=== PATIENT | male | born 1965 | race Caucasian/White ===

== ENCOUNTER 2018-02-20 21:23 | Emergency (ER) | payer BC, SELFPAY ==
[2018-02-20 21:24] VITALS: BP 188/113; PULSE 75; RESP 18; TEMP 36.4; O2SAT 97; BMI 37.6
[2018-02-20 21:30] VITALS: BP 183/95; PULSE 82; RESP 19
--- NOTE | 2018-02-20 21:54 | CT_ITS ---
STUDY: CTA CHEST REASON FOR EXAM: Male, 53 years old. Chest pain RADIATION DOSAGE (If Supplied By Facility): CTDIvol = ( 18.27 ) mGy, DLP = ( 762.08 ) mGycm TECHNIQUE: The examination was performed with the intravenous administration of 100 ml of Isovue 370 contrast material. Post-processing of the angiographic images was performed, with multiplanar reformation and 3D reconstruction. Individualized dose optimization techniques were used for this CT. COMPARISON: None. FINDINGS: There is limited enhancement of the main pulmonary artery and right and left pulmonary arteries. There is limited enhancement of the bilateral peripheral pulmonary arteries. There is no demonstrated pulmonary embolism. Normal thoracic aorta and visualized great vessels. There is no demonstrated aortic dissection. There are calcifications of the coronary arteries. Normal mediastinum. Normal hilar regions. Normal visualized trachea and bronchi. The lungs are well expanded. Normal pulmonary parenchyma. Normal pleura. Normal chest wall structures. There are degenerative changes of thoracic spine. There is hepatomegaly with diffuse hepatic enlargement. CT/CTA Chest W/WO Contrast IMPRESSION: CTA chest examination, without a demonstrated pulmonary embolism or arterial dissection. Electronically Signed: Abelardo Browne MD at 23:38 EDT , Service support ,
--- NOTE | 2018-02-20 21:54 | EKG12_ITS ---
Test Reason : CHEST PAIN Blood Pressure : / mmHG Vent. Rate : 074 BPM Atrial Rate : 074 BPM P-R Int : 184 ms QRS Dur : 096 ms QT Int : 386 ms P-R-T Axes : 051 058 060 degrees QTc Int : 428 ms Normal sinus rhythm Normal ECG Confirmed by REGIS OLEARY, MERLE ([id number]), index editor YORDY BOWDEN ([id number]) on 02/22/2018 10:58:16 AM Referred By: BENITA Confirmed By:MERLE STACY MD
[2018-02-20 21:57] VITALS: O2SAT 97
[2018-02-20] MEDS: Aspirin 81 MG TAB.CHEW 324 MG PO (22:08)
[2018-02-20 22:12] LABS: Absolute Lymphocyte Count 3.01 X10^3/ul (0.83-4.51); Absolute Neutrophil Count 3.7 X10^3/uL (2.0-7.7); Basophil# 0.03 X10^3/uL; Basophil% 0.4 % (0-1); Eosinophil# 0.22 X10^3/uL; Eosinophils% 2.8 % (0-5); Hematocrit 42.5 % (40-54); Hemoglobin 14.3 g/dl (13.0-16.5); Lymphocyte # 3.01 X10^3/ul (4.0); Lymphocyte % 38.2 % (19-41); Mean Corp Hgb Conc 33.6 g/gl (32-36); Mean Corpuscular Hgb 32.3 pg (27.0-32.0); Mean Corpuscular Volume 95.9 fL (80-94); Monocyte# 0.88 X10^3/uL; Monocyte% 11.2 % (0-10); Neutrophil # 3.72 X10^3/uL (2.7-7.7); Neutrophil % 47.3 % (47-70); POSITIVE COUNT NO; POSITIVE DIFFERENTIAL NO; POSITIVE MORPHOLOGY NO; Platelet Count 229 K/mm3 (150-450); RBC Distribution Width CV 14.3 % (11.6-14.6); RBC Distribution Width SD 50.6 fl (35.1-43.9); Red Blood Count 4.43 M/mm3 (4.6-6.2); White Blood Count 7.9 K/mm3 (4.4-11.0)
[2018-02-20 22:24] LABS: Anion Gap 5 (5-15); BUN 19 mg/dL (7-18); BUN/Creat Ratio 15.8 RATIO (10-20); Calcium,Total 9.2 mg/dL (8.5-10.1); Chloride 103 mmol/L (98-107); EST Glomerular Filtration Rate 67 mL/min (>60); Est Glom Filt Rate - Afr Amer 81 mL/min (>60); Estimated Creatinine Clearance 66.56 ml/min; Glucose 132 mg/dL (74-106); Potassium 3.5 mmol/L (3.5-5.1); Sodium Level 139 mmol/L (136-145)
[2018-02-20 22:25] VITALS: BP 165/98; PULSE 72; RESP 17; O2SAT 96
[2018-02-20 23:04] VITALS: BP 144/86; PULSE 73; RESP 18
--- NOTE | 2018-02-20 23:52 | ED.VISSUMM ---
- ER Visit Summary Date of Service: 02/20/18 Chief Complaint: Shortness of breath History of Present Illness: The patient is a 53 M who presents with shortness of breath that became worse today. Patient states he was having some pain in his chest and shortness of breath with any exertion today. Patient states he can only walk a few feet before he becomes short of breath and gets chest pain. Patient describes his pain is aching. Patient states the pain is over the substernal area. Patient admits to some lightheadedness and a cough. Patient denies any nausea or vomiting. Patient denies any diaphoresis. Patient denies any palpitations. Past medical history includes hypertension and hypercholesterolemia. Patient is a smoker. Patient states she does have a history of prior DVT. Physical Examination: Vital signs show an elevated blood pressure of 188/113. The remaining vital signs are stable. Patient is resting comfortably on the bed. Patient is in no acute distress. Oral mucosa is pink and moist. Neck is supple. Trachea is midline. There is no JVD noted. Heart was regular rate and rhythm. Lungs are clear and equal bilaterally. There is good respiratory effort noted. Abdomen is soft. Bowel sounds are normal. There is no tenderness. Extremities are intact. There is 1+ edema lower extremities bilaterally. There is no calf tenderness noted. Cranial nerves II through XII are intact. There are no focal motor or sensory deficits noted. The remaining physical exam is within normal limits. Test Results: EKG showed normal sinus rhythm with a rate of 74. There are no acute ST or T-wave changes. There are no changes compared to previous EKG dated 02/13/2011. CBC was within normal limits. Basic metabolic profile showed a slightly elevated glucose of 132. Troponin was normal at 0.017. CTA of the chest was obtained. There is no evidence of pulmonary embolism or aortic dissection. There is no infiltrate noted. Emergency Department Course and Treatment: Patient was given an albuterol aerosol here. Patient was ambulated on room air with a pulse oximeter. Patient remained 92-94% on room air while ambulating. Patient was given a prescription for an albuterol inhaler. Patient was instructed to follow-up with his primary care physician in 7-10 days. Patient understood and was agreeable with the plan. All questions were answered. Disposition: Discharged home Impression: Dyspnea This note was generated with [employer] dictation software. It may contain incorrect words, spelling, and punctuation that were not noted in review of the chart prior to signing ED Disposition - Plan for ED Patient: Disposition: Home or Assisted Living Chief Complaint: Chest Pain Diagnosis: Dyspnea Instructions: ED Chest Pain Atypical Unkn Cause, ED Dyspnea Shortness of Breath Prescriptions: Albuterol Inhaler [Ventolin Hfa] 2 puff INHALATION Q4H PRN PRN #1 inhaler PRN Reason: Wheezing Referrals: Vadim Encinas MD [Primary Care Provider] -
[2018-02-21] MEDS: Albuterol 2.5 MG/3 ML VIAL.NEB. INHALATION (00:13)
[2018-02-21 00:15] VITALS: PULSE 67; RESP 16
[2018-02-21 00:26] VITALS: O2SAT 94
[2018-02-21 00:38] VITALS: BP 167/105; PULSE 72; RESP 17; O2SAT 97
--- NOTE | 2018-02-21 00:40 | ED.RN ---
PT GIVEN WRITTEN AND VERBAL DISCHARGE INSTRUCTIONS AND HOME GOING PRESCRIPTIONS. PT VERBALIZES UNDERSTANDING AND DENIES ANY FURTHER QUESTIONS. PT IV D/C, ANGIO INTACT AND COVERED WITH 2X2 GAUZE DRESSING. MINIMAL BLEEDING NOTED. PT AMBULATES OUT OF DEPT WITH .
== END 2018-02-21 00:42 | disposition home or self-care (01) ==
PROVIDERS: Emergency Provider Emergency Medicine; Family Provider Family Medicine; PCP Family Medicine
DX: R06.00 Dyspnea, unspecified (principal); R07.9 Chest pain, unspecified; R42 Dizziness and giddiness; R05 Cough; R60.0 Localized edema; I10 Essential (primary) hypertension; E78.00 Pure hypercholesterolemia, unspecified; Z86.718 Personal history of other venous thrombosis and embolism; F17.200 Nicotine dependence, unspecified, uncomplicated; Z79.899 Other long term (current) drug therapy
CPT/HCPCS: 71275; 80048; 84484; 85025; 93005; 94640; 99285; Q9967; A4216

== ENCOUNTER 2018-03-06 08:00 | Day surgery (SDC) | payer BC, SELFPAY ==
--- NOTE | 2018-03-06 08:00 | DT_ITS ---
This patient was seen during an EMR downtime March 04, 2018 - March 11, 2018. This patient may have a combination of paper and electronic documentation or all paper documentation. All documentation is viewable within the e-chart portion of [facility] for each patient visit.
--- NOTE | 2018-03-07 12:17 | EKG12_ITS ---
Test Reason : AM Blood Pressure : / mmHG Vent. Rate : 089 BPM Atrial Rate : 089 BPM P-R Int : 200 ms QRS Dur : 098 ms QT Int : 348 ms P-R-T Axes : 059 055 -23 degrees QTc Int : 423 ms Normal sinus rhythm Normal ECG When compared with ECG of 06-MAR-2018 11:25, MANUAL COMPARISON REQUIRED, DATA IS UNCONFIRMED Confirmed by PALOMA OLEARY, KAMILLE ([id number]), editor in chief newspaper OYRDY BOWDEN ([id number]) on 03/14/2018 4:43:58 PM Referred By: Misha Juarez Confirmed By:KAMILLE DOW MD
[2018-03-08 13:47] LABS: M R Staph aureus DNA By PCR Negative (Negative); Probe Check PASS; Specimen Processing Control PASS
--- NOTE | 2018-03-08 16:57 | CL.I_ITS ---
Patient Name: TWIN CHAMBERS Study Date: 03/06/2018 Performing: Misha Juarez MD Ht: 67 inches 170.18 cm : 1965 Wt: 243.3 lbs 110.22 kg Age: 53 Gender: male BSA: 2.2 PROCEDURE(S) PERFORMED MF02-CST/COR/LV TL70-DTZ W OR WO PTCA, SINGLE CORONARY ARTERY VI04-GLW W OR WO PTCA, SINGLE CORONARY ARTERY CLINICAL PROFILE AND CO-MORBIDITIES Indications: ACS > 24 hrs, New Onset Angina <= 2 months, Worsening Angina, Suspected CAD, LV Dysf unction Heart Failure: None Stress/Imaging Stress Test w/SPECT MPI: Yes Result: Positive Intermediate Risk Stress Test with S PECT MPI: Positive Intermediate Risk Angina Classification Anginal Classification w/in 2 Weeks: CCS III CAD Presentations: Unstable angina. Comorbidities/Risk Factors: Current/Recent Smoker (< 1year) Hypertension Dyslipidemia CONCLUSIONS Double vessel CAD of the LCX and possible recent total occlusion of proximal RCA with robust L to R c ollaterals. Successful PTCA/SHELBY of the of mid LCX with a 3.0 x 16 Promus Synergy, post dilated with a 3.5 and 4.0 NC balooon; 75%-->0%, no dissection. Pt had similar anginal symptoms as at home with balloon inflat ion. Successful PTCA/SHELBY of the Proximal RCA recent occlusion with a 3.5 x 38 Promus Synergy, post dilated through its entirity with a 3.5 NC balloon, and proximally with a 4.0 x 8 NC balloon; 100%-->0%, no dissection. True lumen confirmed with a OTW balloon. PDA not intervened on due to previous inferior infarct and proximal LV wall motion abnormalities noted on nuclear imaging. 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 Juarez ASA Indefinitley Possible elective PCI of PDA if pt has recurrent symptoms or evidence of inferior ischemia. DESCRIPTION OF PROCEDURE The patient arrived to the procedure lab. The risks and benefits of the procedure as well as a full d escription of our services here and lack of surgical backup were fully explained to the patient and/o r their significant other prior to the catheterization. The Timeout was completed, verifying the betina ect patient and procedure. The patient's procedural site was prepped and draped in the usual fashion. Local anesthetic was given subcutaneously to right groin region with Lidocaine 2%. Using a modified Seldinger technique, arterial access was obtained via the right femoral artery, a 4Fr sheath was inse rted. Left Coronary Artery selective angiography was performed in multiple views using a 4 Fr. JL5 c atheter. Right Coronary Artery selective angiography was then performed in multiple views using a 4 F r. 3DRC catheter. Left Ventriculography was performed in NEAL projection using a 4 Fr. Pigtail cathete r. LV to AO pullback pressures were then recordedThe images were reviewed and options discussed. A de cision was then made to proceed with an Intervention, IVUS or other adjunct procedure. Arterial sheath was exchanged for a 6 Fr Sheath. ebu 3.75 Guide catheter was inserted and engaged int o the LCA. bmw Guide wire was advanced to the Circumflex. emerge 2.00 x 12 Balloon catheter was advan mary across lesion in the circumflex, mid. Angiogram performed pre balloon dilatation. PTCA balloon in flated at 12 atms for 14 secs. Angiogram performed post balloon dilatation. synergy 3.00 x 16 Drug El uting stent was advanced across the lesion in the circumflex, mid. Angiogram performed post stent dep loyment. Post stent, balloon catheter was inserted nc emerge 3.5 x 8 nc emerge 4.[address] was inserted post stent. Angiogram performed post balloon dilatation. hs 2 Guide catheter was ins erted and engaged into the RCA. bmw Guide wire was advanced to the RCA. Guide wire was exchanged for a runthrough otw emerge 1.5 x 15 Balloon catheter was advanced across lesion in the right coronary, m id. PTCA balloon inflated at 8 atms for 12 secs. PTCA balloon inflated at 10 atms for 12 secs. PTCA b alloon inflated at 12 atms for 11 secs. PTCA balloon inflated at 12 atms for 9 secs. Angiogram perfor med post balloon dilatation. emerge 2.00 x 12 Balloon catheter was advanced across lesion in the righ t coronary, mid. PTCA balloon inflated at 10 atms for 6 secs. PTCA balloon inflated at 12 atms for 7 secs. Angiogram performed post balloon dilatation. emerge 2.5 x 12 Balloon catheter was advanced acro ss lesion in the right coronary, mid. PTCA balloon inflated at 6 atms for 6 secs. PTCA balloon inflat ed at 6 atms for 6 secs. PTCA balloon inflated at 8 atms for 10 secs. PTCA balloon inflated at 8 atms for 5 secs. PTCA balloon inflated at 8 atms for 5 secs. PTCA balloon inflated at 8 atms for 5 secs. PTCA balloon inflated at 8 atms for 8 secs. Angiogram performed post balloon dilatation. synergy 3.00 x 28 Drug Eluting stent was advanced across the lesion in the right coronary, mid. Angiogram perform ed pre stent deployment. Angiogram performed post stent deployment. synergy 3.5 x 38 Balloon catheter was advanced across lesion in the right coronary, mid. Angiogram performed pre stent deployment. Ang iogram performed post stent deployment. nc emerge 3.5 x 8 Balloon catheter was inserted post stent. A ngiogram performed post balloon dilatation. nc emerge 4.00x 8 Balloon catheter was inserted post sten t. Angiogram performed post stent deployment. Arterial sheath was exchanged for a 6 Fr Sheath 11 cm The arterial sheath was sutured in place and capped CORONARY ANGIOGRAPHY DOMINANCE: Right Dominant LEFT HEART ASSESSMENT Left Ventricular Ejection Fraction: by LV Gram 45-50 % Depressed Left Ventricular systolic function Elevated Left Ventricular End Diastolic Pressure Inferior Basal Hypokinesis - Severe LEFT MAIN: Angiographically normal LEFT ANTERIOR DECENDING ARTERY: Mild luminal irregularities less than 30% CIRCUMFLEX ARTERY: MID CIRC: 75 % Stenosis RIGHT CORONARY ARTERY: PROX RCA: is occluded RT PDA: Mid - 70 diffuse % Stenosis COLLATERAL FLOW: Collateral flow from Left to Right INTERVENTION INFORMATION LESION SITE: Circumflex (Mid) Lesion Complexity: Non-High/Non-C, lesion at bifurcation: No, thrombus present: No, lesion length: 16 mm, culprit lesion: Yes Pre Stenosis: 75 % Pre intervention RIAN flow: 3 PROCEDURE: Drug Eluting Stent with pre and post dilatation Post Stenosis: 0 % Post intervention RIAN flow: 3 Lesion Devices: Marr .014 BMW [place] Straight 190cm Lucien Sci EMERGE MR 2.00x12 BALLOON Lucien Sci Synergy MR SHELBY 3.00x16 Lucien Sci NC EMERGE MR 3.50x08 BALLOON Lucien Sci NC EMERGE MR 4.00x08 BALLOON LESION SITE: RCA (Mid) Lesion Complexity: High/C, thrombus present: No, lesion length: 38 mm, culprit lesion: No Pre Stenosis: 100 % Pre intervention RIAN flow: 0 PROCEDURE: Drug Eluting Stent with pre and post dilatation Post Stenosis: 0 % Post intervention RIAN flow: 3 Lesion Devices: Terumo .014 Runthrough Extra Floppy 180cm straight Lucien Sci EMERGE OTW 1.50x15 BALLOON Lucien Sci EMERGE MR 2.50x12 BALLOON Lucien Sci Synergy MR SHELBY 3.00x28 Lucien Sci Synergy MR SHELBY 3.50x38 LESION SITE: RCA (Distal) Lesion Complexity: High/C, lesion at bifurcation: No, thrombus present: No, lesion length: 32 mm, cul prit lesion: No Pre Stenosis: 100 % Pre intervention RIAN flow: 0 PROCEDURE: Drug Eluting Stent with pre and post dilatation 0 % Post intervention RIAN flow: 3 COMPLICATIONS No Complications PROCEDURE MEDICATIONS Versed 1 mg IV Oxygen: 2 L/min via nasal cannula Heparin 6000 unit(s) IV 03/06/2018 09:36:44 Heparin 4000 unit(s) IV 03/06/2018 10:15:23 Nitro 200 mcg IC 03/06/2018 09:38:31 Nitro 200 mcg IC 03/06/2018 09:38:31 Nitro 200 mcg IC 03/06/2018 09:49:49 Nitro 200 mcg IC 03/06/2018 10:16:06 SUMMARY OF HEMODYNAMIC DATA Time AIR REST ECG 09:12:31 AO 122/81 (98) SA 09:22:06 LV 131/-10, 17 09:29:08 LV 131/-15, 11 09:29:15 LVp 136/-14, 16 09:29:32 AOp 126/75 (96) 09:29:37 Signed By Misha Juarez MD On 03/08/2018 14:48:20 Misha Juarez MD
[2018-03-09 08:00] LABS: Red Blood Count 3.91 M/mm3 (4.6-6.2); White Blood Count 8.5 K/mm3 (4.4-11.0)
[2018-03-09 08:01] LABS: Hemoglobin 12.6 g/dl (13.0-16.5); Mean Corp Hgb Conc 33.2 g/gl (32-36); Mean Corpuscular Hgb 32.2 pg (27.0-32.0); Mean Corpuscular Volume 97.2 fL (80-94); Mean Platelet Vol. 8.6 fl (6.2-12.0); Platelet Count 218 K/mm3 (150-450); RBC Distribution Width CV 14.8 % (11.6-14.6); RBC Distribution Width SD 52.4 fl (35.1-43.9); Scan Indicated on CBC? Y/N NO
[2018-03-09 08:04] LABS: Hematocrit 35.8 % (40-54); Hemoglobin 11.9 g/dl (13.0-16.5); Mean Corp Hgb Conc 33.2 g/gl (32-36); Mean Corpuscular Hgb 32.2 pg (27.0-32.0); Mean Platelet Vol. 8.1 fl (6.2-12.0); POSITIVE COUNT NO; POSITIVE DIFFERENTIAL NO; POSITIVE MORPHOLOGY NO; Platelet Count 181 K/mm3 (150-450); RBC Distribution Width CV 14.6 % (11.6-14.6); RBC Distribution Width SD 51.6 fl (35.1-43.9); Red Blood Count 3.69 M/mm3 (4.6-6.2); White Blood Count 8.7 K/mm3 (4.4-11.0)
[2018-03-09 08:05] LABS: Absolute Lymphocyte Count 2.29 X10^3/ul (0.83-4.51); Absolute Neutrophil Count 5.4 X10^3/uL (2.0-7.7); Basophil# 0.02 X10^3/uL; Basophil% 0.2 % (0-1); Eosinophil# 0.11 X10^3/uL; Eosinophils% 1.3 % (0-5); Lymphocyte # 2.29 X10^3/ul (4.0); Lymphocyte % 26.2 % (19-41); Monocyte# 0.92 X10^3/uL; Monocyte% 10.5 % (0-10); Neutrophil # 5.38 X10^3/uL (2.7-7.7); Neutrophil % 61.6 % (47-70)
[2018-03-09 14:43] LABS: Hemoglobin 12.7 g/dl (13.0-16.5); Red Blood Count 3.93 M/mm3 (4.6-6.2)
[2018-03-09 14:44] LABS: Hematocrit 38.4 % (40-54); Mean Corp Hgb Conc 33.1 g/gl (32-36); Mean Corpuscular Hgb 32.3 pg (27.0-32.0); Mean Corpuscular Volume 97.7 fL (80-94); Mean Platelet Vol. 8.6 fl (6.2-12.0); Platelet Count 233 K/mm3 (150-450); RBC Distribution Width CV 14.6 % (11.6-14.6); RBC Distribution Width SD 52.6 fl (35.1-43.9); Scan Indicated on CBC? Y/N NO
[2018-03-11 03:57] LABS: Anion Gap 7 (5-15); BUN 15 mg/dL (7-18); BUN/Creat Ratio 17.6 RATIO (10-20); Calcium,Total 8.4 mg/dL (8.5-10.1); Chloride 106 mmol/L (98-107); Creatinine, Serum 0.85 mg/dL (0.70-1.30); EST Glomerular Filtration Rate 100 mL/min (>60); Est Glom Filt Rate - Afr Amer 121 mL/min (>60); Glucose 106 mg/dL (74-106); Potassium 3.7 mmol/L (3.5-5.1); Sodium Level 140 mmol/L (136-145)
[2018-03-11 12:15] LABS: ACT Activated Clotting Time 153 sec (74-137)
[2018-03-11 12:15] LABS: ACT Activated Clotting Time 191 sec (74-137)
[2018-03-11 12:15] LABS: ACT Activated Clotting Time 191 sec (74-137)
== END 2018-03-07 09:35 | disposition home or self-care (01) ==
LOC: SDC 03-07 11:28 → ICU 03-07 11:31
PROVIDERS: Family Provider Family Medicine; PCP Family Medicine; Visit Provider Internal Medicine Cardiovascular Disease
DX: R07.9 Chest pain, unspecified (principal); I25.10 Atherosclerotic heart disease of native coronary artery without angina pectoris; I10 Essential (primary) hypertension; R06.02 Shortness of breath; Z82.49 Family history of ischemic heart disease and other diseases of the circulatory system; R94.39 Abnormal result of other cardiovascular function study; E78.5 Hyperlipidemia, unspecified; F17.200 Nicotine dependence, unspecified, uncomplicated
CPT/HCPCS: 80048; 85025; 85027; 85347; 87641; 92928; 93005; 93458; 99152; 99153; J7030; J7040; C1725; C1769; C1874; C1887; C1894; C9600; Q9967

== ENCOUNTER → 2018-04-05 09:10 | Outpatient (CLI) | payer BC, SELFPAY ==
--- NOTE | 2018-04-05 09:12 | STEWCON_ITS ---
Reason For Study: Dyspnea; CAD; Chest Pain Stress Results Protocol: Dobutamine Stress Echo Maximum Predicted HR: 167 bpm Target HR: 142 bpm% Maximum Pre dicted HR: 69 % Heart Stage Duration Rate BPComm ent (mm:ss) (bpm) Baseline 66 155 /92No Chest Pain; Definity 0.6 ML Given Throughout Test DSE 10 MCG 3:57 57 166/90No Chest Pain DSE 20 MCG 3:00 62 166/122No Chest Pain DSE 30 MCG 3:00 63 200/112No Chest Pain DSE 40 No Chest Pain; Atropine 0.25 MG IV at 956; Atropine 0.25 MG IV at MCG 9:05 11 5 [id number]/[id number]; Atropine 0.25 MG IV at 1000; Atropine 0.25 MG IV at 1002 Recovery 90 152 /78No Chest Pain Stress Duration: 19:02 mm:ss Maximum Stress HR: 115 bpmME TS: 1 Baseline Echocardiogram Findings The estimated ejection fraction is 65 %. Stress Echo Wall motion Data Resting WMIntermediate WMStress WM Resting Wall Motion Wall Motion Stress No regional wall motion Mid-Inferior: Mildly hypokinetic. abnormalities noted. Infero-Basal: Mildly hypokinetic. EKG Data The baseline ECG displays normal sinus rhythm. The patient was titrated from 10 mcg to a maximum of 40 mcg of dobutamine during the stress. The maximum heart rate attained was 115 beats per minute. This was 68% of maximum predicted heart rate. During dobutamine infusion, there were no ST or T wave changes noted to suggest ischemia. Interpretation Summary The estimated ejection fraction is 65 %. Mid-Inferior: Mildly hypokinetic Infero-Basal: Mildly hypokinetic Abnormal, adequate, dobutamine echocardiogram. Positive for ischemia by echocardiographic criteria. The patient developed inferior and posterior hypokinesis at peak infusion. Rare PACs and PVCs noted. Hypertensive blood pressure response to dobutamine. Despite inability to reach target heart rate, the patient had an adequate rate pressure product. No anginal symptoms noted. Final LVEF of 55%. No complications. Patient will be referred for elective PCI of PDA. Ordering Physician: Cachorro Domingo Referring Physician: Misha Juarez Performed By: Marci Domingo, ANAY, RVT
== END ==
PROVIDERS: Family Provider Physician Assistant; PCP Physician Assistant; Visit Provider Nurse Practitioner Family
DX: I25.10 Atherosclerotic heart disease of native coronary artery without angina pectoris (principal); R06.09 Other forms of dyspnea; R07.9 Chest pain, unspecified; Z95.5 Presence of coronary angioplasty implant and graft
CPT/HCPCS: 93017; 93350; J7030; Q9957; A4216; C8928

== ENCOUNTER 2018-04-09 12:49 | Observation (INO) | payer BC, SELFPAY ==
[2018-04-09] VITALS (15 sets, daily range): BP systolic 120–168; BP diastolic 76–104; PULSE 66–80; RESP 13–19; TEMP 36.7–36.9; O2SAT 93–97; BMI 39.5; BMI 38.2
--- NOTE | 2018-04-09 13:44 | EKG12_ITS ---
Test Reason : CP Blood Pressure : / mmHG Vent. Rate : 081 BPM Atrial Rate : 081 BPM P-R Int : 192 ms QRS Dur : 088 ms QT Int : 374 ms P-R-T Axes : 053 048 -03 degrees QTc Int : 434 ms Normal sinus rhythm Normal ECG Confirmed by PALOMA OLEARY, KAMILLE ([id number]), science editor YORDY BOWDEN ([id number]) on 04/11/2018 1:45:40 PM Referred By: Cachorro Domingo Confirmed By:KAMILLE DOW MD
--- NOTE | 2018-04-09 13:49 | ED.DCSUM_ITS ---
- ER Visit Summary Date of Service: 04/09/18 Chief Complaint: Chest pain and shortness of breath History of Present Illness: The patient is a 53 M with history of coronary artery disease status post stent placement on March 06 who presents for chest pain since yesterday. Patient has been having intermittent waxing and waning chest pain in the left lower chest and lower substernal region since yesterday. He states this is his typical chest pain that he had along with his prior heart attack. It does not radiate. Pain is currently a 4 out of 10. It is not exacerbated by anything and occurs at rest. Patient is also complaining of shortness of breath with onset prior to arrival. Patient was on his way here to get blood work performed for upcoming cardiac interventions when he began feeling short of breath. He has had a productive cough recently and felt like he was choking on his own saliva, unable to swallow it. He has history of wheezing but no diagnosed asthma, COPD, or CHF. Patient currently on Plavix. Patient is a smoker. Patient states he recently had an echo performed and was told he needs another stent. Procedure is scheduled for April 17. Physical Examination: Vital signs: afebrile, hemodynamically stable, no hypoxia on room air General: well nourished, well developed, in no distress Skin: warm, dry, no rash, no pallor HEENT: normocephalic and atraumatic; PERRL, EOMI, moist mucous membranes Cardiovascular: regular rate and rhythm without murmurs, no peripheral edema, 2 + pulses all distal extremities Respiratory: No increased work of breathing, lungs are clear to auscultation bilaterally, no rales, rhonchi or wheezing, speaking in full sentences, brief episode of feeling short of breath and unable to swallow his own saliva, no apparent respiratory distress during this episode Abdominal: Abdomen is soft, nontender with normoactive bowel sounds, no guarding or rebound, no masses MSK: Moves all extremities, no deformities, normal strength Neuro: Awake and alert, oriented ?4. No facial droop, sensation and motor function intact and symmetric Test Results: Abnormal Lab Results 04/09/18 04/09/18 04/09/18 13:02 13:02 13:02 WBC 6.7 RBC 4.31 L Hgb 14.0 Hct 42.2 MCV 97.9 H MCH 32.5 H MCHC 33.2 RDW 14.9 H RDW Differential 51.8 H Plt Count 228 MPV 8.9 Immature Gran % (Auto) 0.300 Neut % (Auto) 49.9 Lymph % (Auto) 36.5 [place] % (Auto) 10.3 H Eos % (Auto) 2.4 Baso % (Auto) 0.6 Absolute Neuts (auto) 3.3 Absolute Lymphs (auto) 2.44 Total Counted Not Reportable PT 12.9 INR 1.0 APTT 27.5 Sodium 140 Potassium 3.6 Chloride 103 Carbon Dioxide 30.0 Anion Gap 7 BUN 17 Creatinine 1.03 Estim Creat Clear Calc 77.54 Est GFR (MDRD) Af Amer 97 Est GFR (MDRD) Non-Af 80 BUN/Creatinine Ratio 16.5 Glucose 86 Calcium 9.3 Troponin I < 0.015 Clinical Impression(s) from Imaging Studies Chest X-Ray 04/09/18 14:25 IMPRESSION: Question minimal bibasilar infiltrates. Electronically Signed: Steven Stanton DO at 14:42 EDT Tel [phone], Service support , Emergency Department Course and Treatment: Patient presents for chest pain and then shortness of breath that developed on his way to the emergency department. Chart review shows patient had an echo 4 days ago that shows ischemic changes , and patient states he is scheduled for a cath later this month. Patient was given aspirin and nitro. Because he developed the shortness of breath as well and states he has a history of wheezing due to smoking, he was given a DuoNeb. His respiratory symptoms resolved after the treatment. His chest pain resolved after the nitro. EKG showed sinus rhythm with T-wave inversions in 3 and aVF which were present on his March EKG. Initial troponin negative. Labs otherwise unremarkable. Given that patient has the known coronary artery disease and is having symptoms of chest pain today that were similar to his symptoms when he had 3 stents placed last month, this is concerning for unstable angina. Patient was discussed with Dr. Figueroa and then discussed with Dr. Peralta for admission for further cardiac workup. Patient initially did not want to stay since he states he lives nearby and feels better now. We discussed the risks of him leaving and he opted to be admitted. Treatment Plan: [] Disposition: [] Impression: Unstable angina, history of ACS This note was generated with [employer] dictation software. It may contain incorrect words, spelling, and punctuation that were not noted in review of the chart prior to signing ED Disposition - Plan for ED Patient: Chief Complaint: Chest Pain
[2018-04-09] MEDS: Aspirin 81 MG TAB.CHEW 324 MG PO (13:56)
[2018-04-09] MEDS: Ipratropium/Albuterol Sulfate 3 ML AMPUL.NEB INHALATION (13:57)
[2018-04-09 13:59] LABS: Absolute Lymphocyte Count 2.44 X10^3/ul (0.83-4.51); Absolute Neutrophil Count 3.3 X10^3/uL (2.0-7.7); Basophil# 0.04 X10^3/uL; Basophil% 0.6 % (0-1); Eosinophil# 0.16 X10^3/uL; Eosinophils% 2.4 % (0-5); Hematocrit 42.2 % (40-54); Lymphocyte # 2.44 X10^3/ul (4.0); Lymphocyte % 36.5 % (19-41); Mean Corp Hgb Conc 33.2 g/gl (32-36); Mean Corpuscular Hgb 32.5 pg (27.0-32.0); Mean Corpuscular Volume 97.9 fL (80-94); Mean Platelet Vol. 8.9 fl (6.2-12.0); Monocyte# 0.69 X10^3/uL; Monocyte% 10.3 % (0-10); Neutrophil # 3.34 X10^3/uL (2.7-7.7); Neutrophil % 49.9 % (47-70); Platelet Count 228 K/mm3 (150-450); RBC Distribution Width CV 14.9 % (11.6-14.6); RBC Distribution Width SD 51.8 fl (35.1-43.9); Red Blood Count 4.31 M/mm3 (4.6-6.2); White Blood Count 6.7 K/mm3 (4.4-11.0)
[2018-04-09 14:00] LABS: POSITIVE COUNT NO; POSITIVE DIFFERENTIAL NO; POSITIVE MORPHOLOGY NO
[2018-04-09] MEDS: 0.9% Normal Saline 1,000 ML 250 ML IV (14:00)
[2018-04-09 14:07] LABS: Prothrombin Time (Protime)PT. 12.9 SECONDS (11.7-14.9)
[2018-04-09 14:08] LABS: Partial Thromboplast Time 27.5 Seconds (24.1-36.2)
[2018-04-09 14:25] LABS: Anion Gap 7 (5-15); BUN 17 mg/dL (7-18); BUN/Creat Ratio 16.5 RATIO (10-20); Calcium,Total 9.3 mg/dL (8.5-10.1); Chloride 103 mmol/L (98-107); Creatinine, Serum 1.03 mg/dL (0.70-1.30); EST Glomerular Filtration Rate 80 mL/min (>60); Est Glom Filt Rate - Afr Amer 97 mL/min (>60); Estimated Creatinine Clearance 77.54 ml/min; Glucose 86 mg/dL (74-106); Potassium 3.6 mmol/L (3.5-5.1); Sodium Level 140 mmol/L (136-145)
--- NOTE | 2018-04-09 14:25 | RAD_ITS ---
STUDY: X-RAY CHEST REASON FOR EXAM: Male, 53 years old. Chest pain. TECHNIQUE: PA and lateral views of the chest. COMPARISON: CT of the chest, February 20, 2018. FINDINGS: Telemetry wires overlie the chest. The lungs are mildly hyperexpanded. There is vague densities at the lung bases which may be infiltrates or atelectasis. There is no demonstrated pleural abnormality. Normal size heart. Normal mediastinum and susana. Normal visualized pulmonary arteries. Normal visualized aortic arch and descending thoracic aorta. Normal visualized thoracic spine. Normal visualized ribs, clavicles, and shoulders. There is no demonstrated abnormality of the visualized soft tissue structures of the upper abdomen. RAD/Chest PA and Lateral IMPRESSION: Question minimal bibasilar infiltrates. Electronically Signed: Steven Stanton DO at 14:42 EDT Tel [phone], Service support ,
--- NOTE | 2018-04-09 15:56 | NURSING ---
DR SINGH FOR DR MUNIZ
--- NOTE | 2018-04-09 16:03 | PCM.HP.STD ---
<Aisha Vázquez - Last Filed: 04/09/18 16:55> Problem List (1) Chest pain Status: Acute (2) Abnormal stress test Status: Acute (3) History of coronary artery stent placement Status: Chronic Comment: PTCA/SHELBY of the of mid LCX with a 3.0 x 16 Promus Synergy and PTCA/SHELBY of the Proximal RCA recent occlusion with a 3.5 x 38 Promus Synergy 03/06/18 (4) Atherosclerosis of coronary artery of [place] heart without angina pectoris Status: Chronic Comment: PTCA/SHELBY of the of mid LCX with a 3.0 x 16 Promus Synergy and PTCA/SHELBY of the Proximal RCA recent occlusion with a 3.5 x 38 Promus Synergy 03/06/18 (5) Nicotine dependence Status: Chronic (6) Hyperlipidemia Status: Chronic (7) Hypertension Status: Chronic History of Present Illness Date of Admission: 04/09/18 Chief Complaint: Chest pain, shortness of breath. The patient is a 53 year old M who presents the emergency room with chest pain which began yesterday. Patient describes chest pain on the left side of his chest, not associated with exertion. Patient describes radiation to his neck bilaterally and associated shortness of breath. Denies dizziness, lightheadedness. Patient states pain feels similar to chest pain prior to recent stent placement. Patient underwent PTCA to mid LCx, SHELBY of the mid and proximal RCA March 06, 2018. He follows with Dr. Juarez as outpatient. Had recent abnormal stress echocardiogram 04/05/2018 and was scheduled for outpatient cardiac catheterization 04/17/2018. His other past medical history includes hypertension, hyperlipidemia, nicotine dependence, hiatal hernia, history of TIA, obesity, anxiety, obstructive sleep apnea. Patient is noncompliant with CPAP. He denies history of COPD although he does have an extensive smoking history and uses an inhaler as needed for wheezing. Current pack per day smoker and states he has no interest in quitting. Past Medical History Past Medical History (Chronic Problems): Chronic Problems (Last Updated 04/05/18 @ 13:01 by Nasima Orr) History of coronary artery stent placement (Chronic 03/06/18) PTCA/SHELBY of the of mid LCX with a 3.0 x 16 Promus Synergy and PTCA/SHELBY of the Proximal RCA recent occlusion with a 3.5 x 38 Promus Synergy 03/06/18 Atherosclerosis of coronary artery of [place] heart without angina pectoris (Chronic) PTCA/SHELBY of the of mid LCX with a 3.0 x 16 Promus Synergy and PTCA/SHELBY of the Proximal RCA recent occlusion with a 3.5 x 38 Promus Synergy 03/06/18 Nicotine dependence (Chronic) Hyperlipidemia (Chronic) Hypertension (Chronic) Medical History: Medical History (Last Updated 04/05/18 @ 13:01 by Nasima Orr) Chest pain (Acute) R07.9 Abnormal stress test (Acute) R94.39 Atherosclerosis of coronary artery of [place] heart without angina pectoris (Acute) I25.10 PTCA/SHELBY of the of mid LCX with a 3.0 x 16 Promus Synergy and PTCA/SHELBY of the Proximal RCA recent occlusion with a 3.5 x 38 Promus Synergy 03/06/18 Nicotine dependence (Chronic) F17.200 Hyperlipidemia (Chronic) E78.5 Hypertension (Chronic) I10 DVT (deep venous thrombosis) I82.409 MGUS (monoclonal gammopathy of unknown significance) D47.2 TIA (transient ischemic attack) G45.9 Allergies acetaminophen [From Vicodin] Adverse Reaction (Verified 02/20/18 21:24) Upset Stomach cyclobenzaprine [From Flexeril] Adverse Reaction (Verified 02/20/18 21:24) Upset Stomach hydrocodone bitartrate [From Vicodin] Adverse Reaction (Verified 02/20/18 21:24) Upset Stomach tramadol Adverse Reaction (Verified 02/20/18 21:24) Upset Stomach Home Medications: Ambulatory Orders Medication Instructions Recorded Zolpidem Tartrate [Ambien] 10 mg PO QHS PRN PRN 01/08/15 Losartan/Hydrochlorothiazide 1 ea PO DAILY 03/09/17 [Losartan-Hctz 100-25 mg Tab] Albuterol IH (ProAir) [Proair Hfa] 1 - 2 puff INHALATION Q6H PRN PRN 02/20/18 Duloxetine HCl [Duloxetine HCl] 60 mg PO DAILY 02/20/18 aspirin 81 mg tablet,delayed 81 mg PO DAILY 03/16/18 release carvedilol 25 mg tablet 50 mg PO BID 03/16/18 clopidogrel 75 mg tablet 75 mg PO DAILY 03/16/18 pravastatin 40 mg tablet 40 mg PO DAILY 03/16/18 isosorbide mononitrate ER 60 mg 60 mg PO QDAY #30 tab 04/05/18 tablet,extended release 24 hr Buspirone HCl [Buspirone HCl] 10 mg PO DAILY 04/09/18 Nitroglycerin [Nitrostat] 0.4 mg SUBLINGUAL Q5M PRN 04/09/18 Omeprazole 40 mg PO DAILY 04/09/18 Surgical History: Surgical History (Last Reviewed 04/09/18 @ 16:18 by ASHER Roblero) History of coronary artery stent placement (Chronic) Onset Date: 03/06/18 Z95.5 PTCA/SHELBY of the of mid LCX with a 3.0 x 16 Promus Synergy and PTCA/SHELBY of the Proximal RCA recent occlusion with a 3.5 x 38 Promus Synergy 03/06/18 H/O carpal tunnel repair Z98.890 History of arthroscopic knee surgery Z98.890 Hx of cholecystectomy Z90.49 Psychiatric History: No pertinent psych hx Lives: Spouse/ Significant Other Smoking Status: Current every day smoker Tobacco Use: Cigarettes Alcohol: None Drugs: None - *Family History Maternal History Items: No pertinent history Paternal History Items: No pertinent history Review of Systems Constitutional: Denies: Chills, Fever, Weight Change HEENT: Denies: Head Aches, Sinus Congestion, Sinus Drainage Cardiovascular: Reports: Chest Pain Respiratory: Reports: Cough - Chronic, Shortness of Breath - Associated with chest pain Gastrointestinal: Denies: Abdominal Pain, Nausea, Vomiting Genitourinary: Denies: Dysuria Musculoskeletal: Denies: Joint Pain, Joint Tenderness Skin: Denies: Rash, Wounds Neurological: Denies: Numbness, Tingling, Focal weakness Psychiatric: Denies: Anxiety, Depression, Homicidal Ideations, Suicidal Ideations Hematologic/ Lymphatic: Denies: Easy Bruising, Easy Bleeding VTE Information - Inpt Only VTE Present on Admission: No VTE Mechan Device Prophylaxis: None VTE Pharm Prophylaxis ordered?: Yes - Physical Exam General: Alert, Oriented x3, Cooperative, No apparent distress HEENT: Atraumatic, PERRLA, EOMI, Normocephalic Neck: Supple, No JVD, Negative Carotid Bruits Lungs: Diminished, Wheezes Cardiovascular: Regular rate, Regular Rhythm, Normal S1, Normal S2, No murmurs Abdomen: Bowel Sounds Present, Soft, Non Tender, Non-Distended, Hernia Extremities: No clubbing, No cyanosis, Capillary Refill Less than 3 Seconds, Edema - Nonpitting bilateral lower extremity Skin: No rashes, No breakdown Musculoskeletal: No Tenderness to Palpation of Joints or Extremities Neurological: Cranial nerves II-XII grossly intact, Neuro grossly intact Psych/Mental Status: Normal Affect, Appropriate Vital Signs Temp Pulse Resp BP Pulse Ox 98.1 F 74 17 131/86 H 96 04/09/18 12:55 04/09/18 15:04 04/09/18 15:04 04/09/18 15:04 04/09/18 15:04 Oxygen Delivery Method Room Air Weight: 114.532 kg Body Mass Index (BMI) 39.5 Laboratory Tests Past 24 Hrs 04/09/18 04/09/18 04/09/18 13:02 13:02 13:02 WBC 6.7 RBC 4.31 L Hgb 14.0 Hct 42.2 MCV 97.9 H MCH 32.5 H MCHC 33.2 RDW 14.9 H RDW Differential 51.8 H Plt Count 228 MPV 8.9 Immature Gran % (Auto) 0.300 Neut % (Auto) 49.9 Lymph % (Auto) 36.5 Pacific % (Auto) 10.3 H Eos % (Auto) 2.4 Baso % (Auto) 0.6 Absolute Neuts (auto) 3.3 Absolute Lymphs (auto) 2.44 Total Counted Not Reportable PT 12.9 INR 1.0 APTT 27.5 Sodium 140 Potassium 3.6 Chloride 103 Carbon Dioxide 30.0 Anion Gap 7 BUN 17 Creatinine 1.03 Estim Creat Clear Calc 77.54 Est GFR (MDRD) Af Amer 97 Est GFR (MDRD) Non-Af 80 BUN/Creatinine Ratio 16.5 Glucose 86 Calcium 9.3 Troponin I < 0.015 Assessment/Plan All Active Problems (Last Updated 04/05/18 @ 13:01 by Nasima Orr) Chest pain (Acute) Abnormal stress test (Acute) 1. Chest pain-recent abnormal stress echocardiogram 04/05/2018. Follows with Dr. Juarez. Dr. Kraft on consult. Originally scheduled for outpatient cardiac catheterization 04/17/2018 however patient continued to have symptoms. Repeat EKG with new onset chest pain. Troponin negative ?1. Cycle enzymes. N.p.o. after midnight for anticipated cardiac catheterization tomorrow. 2. CAD-recent PTCA to mid LCx, SHELBY of the mid and proximal RCA March 06, 2018. Continue aspirin, statin, Plavix. Cardiology following as noted above. 3. Hypertension-stable, continue home regimen including carvedilol, isosorbide, losartan/HCTZ. 4. Hyperlipidemia-continue statin. 5. Nicotine dependence-1 pack per day smoker. Encourage smoking cessation. Nicotine replacement patch. 6. Hiatal hernia 7. History of TIA-continue aspirin, Plavix, statin. 8. Asthma, suspected COPD given extensive smoking history-recommend follow-up with pulmonary medicine for pulmonary function testing at discharge. Albuterol aerosol as needed for shortness of breath. 9. Obesity-encourage diet and lifestyle modifications. 10. Anxiety-continue home duloxetine regimen. 11. Obstructive sleep apnea-noncompliant with CPAP. DVT prophylaxis-Lovenox subcu. This patient was seen by ASHER Roblero under the supervision of Dr. Peralta. <Samuel Peralta - Last Filed: 04/09/18 17:22> History of Present Illness Seen and examined in the ER and in PCU Patient came to ER with chest pain, left-sided, multiple times since yesterday. As mentioned above he had a recent PCI in mid left circumflex and proximal RCA March 03, 2018 and stress echo on 04/05/2018 which is read as abnormal. Initially, patient was trying to walk out in ED or signed AMA but he was convinced to stay by ER physician Dr. Elizondo and myself [] Past Medical History Medical History: Medical History (Last Updated 04/05/18 @ 13:01 by Nasima Orr) Chest pain (Acute) R07.9 Abnormal stress test (Acute) R94.39 Atherosclerosis of coronary artery of [place] heart without angina pectoris (Acute) I25.10 PTCA/SHELBY of the of mid LCX with a 3.0 x 16 Promus Synergy and PTCA/SHELBY of the Proximal RCA recent occlusion with a 3.5 x 38 Promus Synergy 03/06/18 Nicotine dependence (Chronic) F17.200 Hyperlipidemia (Chronic) E78.5 Hypertension (Chronic) I10 DVT (deep venous thrombosis) I82.409 MGUS (monoclonal gammopathy of unknown significance) D47.2 TIA (transient ischemic attack) G45.9 Allergies acetaminophen [From Vicodin] Adverse Reaction (Verified 02/20/18 21:24) Upset Stomach cyclobenzaprine [From Flexeril] Adverse Reaction (Verified 02/20/18 21:24) Upset Stomach hydrocodone bitartrate [From Vicodin] Adverse Reaction (Verified 02/20/18 21:24) Upset Stomach tramadol Adverse Reaction (Verified 02/20/18 21:24) Upset Stomach Surgical History: Surgical History (Last Reviewed 04/09/18 @ 16:18 by Aisha Vázquez NP-C) History of coronary artery stent placement (Chronic) Onset Date: 03/06/18 Z95.5 PTCA/SHELBY of the of mid LCX with a 3.0 x 16 Promus Synergy and PTCA/SHELBY of the Proximal RCA recent occlusion with a 3.5 x 38 Promus Synergy 03/06/18 H/O carpal tunnel repair Z98.890 History of arthroscopic knee surgery Z98.890 Hx of cholecystectomy Z90.49 - Physical Exam General: Alert, Oriented x3, Cooperative HEENT: Atraumatic, PERRLA, EOMI, Normocephalic Neck: Supple, No JVD, Negative Carotid Bruits Lungs: Clear to auscultation, Normal air movement Cardiovascular: Regular rate, Normal S1, Normal S2, No murmurs Abdomen: Bowel Sounds Present, Soft, Non Tender Extremities: No edema, Capillary Refill Less than 3 Seconds, Edema Skin: No rashes, No breakdown Musculoskeletal: No Tenderness to Palpation of Joints or Extremities Neurological: Cranial nerves II-XII grossly intact Psych/Mental Status: Normal Affect, Appropriate Vital Signs Temp Pulse Resp BP Pulse Ox 98.3 F 70 14 157/98 H 95 04/09/18 17:07 04/09/18 17:07 04/09/18 17:07 04/09/18 17:07 04/09/18 17:07 Oxygen Delivery Method Room Air Weight: 244 lb Body Mass Index (BMI) 38.2 Assessment/Plan This patient was seen in conjunction with Aisha MATIAS. I have independently interviewed and examined the patient and reviewed pertinent history, examination findings, laboratory and plan of management. I have reviewed the note and agree with the documented findings with the few additional points. In brief, patient is admitted for frequent chest pain for last 2 days with no relation to food or exertion, very concerning for unstable angina in view of recent abnormal stress echo. Patient is also chronic a smoker and has wheezing on exam, possible COPD. patient had PFT many years ago but neither he remembers result nor documentation is available. He also has obstructive sleep apnea and has CPAP but probably noncompliant. EKG shows slight ST elevation in V2 to V4 which is new as compared to previous EKG on 03/07/2018 but has old T inversion in inferior leads. I have discussed my assessment with [employer], Aisha and orders have been reviewed. Laboratory Results 04/09/18 13:02: WBC 6.7, RBC 4.31 L, Hgb 14.0, Hct 42.2, MCV 97.9 H, MCH 32.5 H, MCHC 33.2, RDW 14.9 H, RDW Differential 51.8 H, Plt Count 228, MPV 8.9, Immature Gran % (Auto) 0.300, Neut % (Auto) 49.9, Lymph % (Auto) 36.5, [place] % (Auto) 10.3 H, Eos % (Auto) 2.4, Baso % (Auto) 0.6, Absolute Neuts (auto) 3.3, Absolute Lymphs (auto) 2.44, Total Counted Not Reportable 04/09/18 13:02: Sodium 140, Potassium 3.6, Chloride 103, Carbon Dioxide 30.0, Anion Gap 7, BUN 17, Creatinine 1.03, Estim Creat Clear Calc 77.54, Est GFR (MDRD) Af Amer 97, Est GFR (MDRD) Non-Af 80, BUN/Creatinine Ratio 16.5, Glucose 86, Calcium 9.3, Troponin I < 0.015 04/09/18 13:02: PT 12.9, INR 1.0, APTT 27.5 Code Visit OBSV E&M: [id number] Initial observation care L3
--- NOTE | 2018-04-09 16:07 | NURSING ---
113 POSSIBLE UNSTABLE ANGINA SAMANTHA
--- NOTE | 2018-04-09 16:18 | HP.PCM_ITS ---
<Aisha Vázquez - Last Filed: 04/09/18 16:55> Problem List (1) Chest pain Status: Acute (2) Abnormal stress test Status: Acute (3) History of coronary artery stent placement Status: Chronic Comment: PTCA/SHELBY of the of mid LCX with a 3.0 x 16 Promus Synergy and PTCA/SHELBY of the Proximal RCA recent occlusion with a 3.5 x 38 Promus Synergy 03/06/18 (4) Atherosclerosis of coronary artery of [place] heart without angina pectoris Status: Chronic Comment: PTCA/SHELBY of the of mid LCX with a 3.0 x 16 Promus Synergy and PTCA/SHELBY of the Proximal RCA recent occlusion with a 3.5 x 38 Promus Synergy 03/06/18 (5) Nicotine dependence Status: Chronic (6) Hyperlipidemia Status: Chronic (7) Hypertension Status: Chronic History of Present Illness Date of Admission: 04/09/18 Chief Complaint: Chest pain, shortness of breath. The patient is a 53 year old M who presents the emergency room with chest pain which began yesterday. Patient describes chest pain on the left side of his chest, not associated with exertion. Patient describes radiation to his neck bilaterally and associated shortness of breath. Denies dizziness, lightheadedness. Patient states pain feels similar to chest pain prior to recent stent placement. Patient underwent PTCA to mid LCx, SHELBY of the mid and proximal RCA March 06, 2018. He follows with Dr. Juarez as outpatient. Had recent abnormal stress echocardiogram 04/05/2018 and was scheduled for outpatient cardiac catheterization 04/17/2018. His other past medical history includes hypertension, hyperlipidemia, nicotine dependence, hiatal hernia, history of TIA , obesity, anxiety, obstructive sleep apnea. Patient is noncompliant with CPAP. He denies history of COPD although he does have an extensive smoking history and uses an inhaler as needed for wheezing. Current pack per day smoker and states he has no interest in quitting. Past Medical History Past Medical History (Chronic Problems): Chronic Problems (Last Updated 04/05/18 @ 13:01 by Nasima Orr) History of coronary artery stent placement (Chronic 03/06/18) PTCA/SHELBY of the of mid LCX with a 3.0 x 16 Promus Synergy and PTCA/SHELBY of the Proximal RCA recent occlusion with a 3.5 x 38 Promus Synergy 03/06/18 Atherosclerosis of coronary artery of [place] heart without angina pectoris ( Chronic) PTCA/SHELBY of the of mid LCX with a 3.0 x 16 Promus Synergy and PTCA/SHELBY of the Proximal RCA recent occlusion with a 3.5 x 38 Promus Synergy 03/06/18 Nicotine dependence (Chronic) Hyperlipidemia (Chronic) Hypertension (Chronic) Medical History: Medical History (Last Updated 04/05/18 @ 13:01 by Nasima Orr) Chest pain (Acute) R07.9 Abnormal stress test (Acute) R94.39 Atherosclerosis of coronary artery of [place] heart without angina pectoris ( Acute) I25.10 PTCA/SHELBY of the of mid LCX with a 3.0 x 16 Promus Synergy and PTCA/SHELBY of the Proximal RCA recent occlusion with a 3.5 x 38 Promus Synergy 03/06/18 Nicotine dependence (Chronic) F17.200 Hyperlipidemia (Chronic) E78.5 Hypertension (Chronic) I10 DVT (deep venous thrombosis) I82.409 MGUS (monoclonal gammopathy of unknown significance) D47.2 TIA (transient ischemic attack) G45.9 Allergies acetaminophen [From Vicodin] Adverse Reaction (Verified 02/20/18 21:24) Upset Stomach cyclobenzaprine [From Flexeril] Adverse Reaction (Verified 02/20/18 21:24) Upset Stomach hydrocodone bitartrate [From Vicodin] Adverse Reaction (Verified 02/20/18 21:24) Upset Stomach tramadol Adverse Reaction (Verified 02/20/18 21:24) Upset Stomach Home Medications: Ambulatory Orders Medication Instructions Recorded Zolpidem Tartrate [Ambien] 10 mg PO QHS PRN PRN 01/08/15 Losartan/Hydrochlorothiazide 1 ea PO DAILY 03/09/17 [Losartan-Hctz 100-25 mg Tab] Albuterol IH (ProAir) [Proair Hfa] 1 - 2 puff INHALATION Q6H PRN PRN 02/20/18 Duloxetine HCl [Duloxetine HCl] 60 mg PO DAILY 02/20/18 aspirin 81 mg tablet,delayed 81 mg PO DAILY 03/16/18 release carvedilol 25 mg tablet 50 mg PO BID 03/16/18 clopidogrel 75 mg tablet 75 mg PO DAILY 03/16/18 pravastatin 40 mg tablet 40 mg PO DAILY 03/16/18 isosorbide mononitrate ER 60 mg 60 mg PO QDAY #30 tab 04/05/18 tablet,extended release 24 hr Buspirone HCl [Buspirone HCl] 10 mg PO DAILY 04/09/18 Nitroglycerin [Nitrostat] 0.4 mg SUBLINGUAL Q5M PRN 04/09/18 Omeprazole 40 mg PO DAILY 04/09/18 Surgical History: Surgical History (Last Reviewed 04/09/18 @ 16:18 by ASHER Roblero) History of coronary artery stent placement (Chronic) Onset Date: 03/06/18 Z95.5 PTCA/SHELBY of the of mid LCX with a 3.0 x 16 Promus Synergy and PTCA/SHELBY of the Proximal RCA recent occlusion with a 3.5 x 38 Promus Synergy 03/06/18 H/O carpal tunnel repair Z98.890 History of arthroscopic knee surgery Z98.890 Hx of cholecystectomy Z90.49 Psychiatric History: No pertinent psych hx Lives: Spouse/ Significant Other Smoking Status: Current every day smoker Tobacco Use: Cigarettes Alcohol: None Drugs: None - *Family History Maternal History Items: No pertinent history Paternal History Items: No pertinent history Review of Systems Constitutional: Denies: Chills, Fever, Weight Change HEENT: Denies: Head Aches, Sinus Congestion, Sinus Drainage Cardiovascular: Reports: Chest Pain Respiratory: Reports: Cough - Chronic, Shortness of Breath - Associated with chest pain Gastrointestinal: Denies: Abdominal Pain, Nausea, Vomiting Genitourinary: Denies: Dysuria Musculoskeletal: Denies: Joint Pain, Joint Tenderness Skin: Denies: Rash, Wounds Neurological: Denies: Numbness, Tingling, Focal weakness Psychiatric: Denies: Anxiety, Depression, Homicidal Ideations, Suicidal Ideations Hematologic/ Lymphatic: Denies: Easy Bruising, Easy Bleeding VTE Information - Inpt Only VTE Present on Admission: No VTE Mechan Device Prophylaxis: None VTE Pharm Prophylaxis ordered?: Yes - Physical Exam General: Alert, Oriented x3, Cooperative, No apparent distress HEENT: Atraumatic, PERRLA, EOMI, Normocephalic Neck: Supple, No JVD, Negative Carotid Bruits Lungs: Diminished, Wheezes Cardiovascular: Regular rate, Regular Rhythm, Normal S1, Normal S2, No murmurs Abdomen: Bowel Sounds Present, Soft, Non Tender, Non-Distended, Hernia Extremities: No clubbing, No cyanosis, Capillary Refill Less than 3 Seconds, Edema - Nonpitting bilateral lower extremity Skin: No rashes, No breakdown Musculoskeletal: No Tenderness to Palpation of Joints or Extremities Neurological: Cranial nerves II-XII grossly intact, Neuro grossly intact Psych/Mental Status: Normal Affect, Appropriate Vital Signs Temp Pulse Resp BP Pulse Ox 98.1 F 74 17 131/86 H 96 04/09/18 12:55 04/09/18 15:04 04/09/18 15:04 04/09/18 15:04 04/09/18 15:04 Oxygen Delivery Method Room Air Weight: 114.532 kg Body Mass Index (BMI) 39.5 Laboratory Tests Past 24 Hrs 04/09/18 04/09/18 04/09/18 13:02 13:02 13:02 WBC 6.7 RBC 4.31 L Hgb 14.0 Hct 42.2 MCV 97.9 H MCH 32.5 H MCHC 33.2 RDW 14.9 H RDW Differential 51.8 H Plt Count 228 MPV 8.9 Immature Gran % (Auto) 0.300 Neut % (Auto) 49.9 Lymph % (Auto) 36.5 [place] % (Auto) 10.3 H Eos % (Auto) 2.4 Baso % (Auto) 0.6 Absolute Neuts (auto) 3.3 Absolute Lymphs (auto) 2.44 Total Counted Not Reportable PT 12.9 INR 1.0 APTT 27.5 Sodium 140 Potassium 3.6 Chloride 103 Carbon Dioxide 30.0 Anion Gap 7 BUN 17 Creatinine 1.03 Estim Creat Clear Calc 77.54 Est GFR (MDRD) Af Amer 97 Est GFR (MDRD) Non-Af 80 BUN/Creatinine Ratio 16.5 Glucose 86 Calcium 9.3 Troponin I < 0.015 Assessment/Plan All Active Problems (Last Updated 04/05/18 @ 13:01 by Nasima Orr) Chest pain (Acute) Abnormal stress test (Acute) 1. Chest pain-recent abnormal stress echocardiogram 04/05/2018. Follows with Dr. Juarez. Dr. Kraft on consult. Originally scheduled for outpatient cardiac catheterization 04/17/2018 however patient continued to have symptoms. Repeat EKG with new onset chest pain. Troponin negative ?1. Cycle enzymes. N.p.o. after midnight for anticipated cardiac catheterization tomorrow. 2. CAD-recent PTCA to mid LCx, SHELBY of the mid and proximal RCA March 06, 2018. Continue aspirin, statin, Plavix. Cardiology following as noted above. 3. Hypertension-stable, continue home regimen including carvedilol, isosorbide , losartan/HCTZ. 4. Hyperlipidemia-continue statin. 5. Nicotine dependence-1 pack per day smoker. Encourage smoking cessation. Nicotine replacement patch. 6. Hiatal hernia 7. History of TIA-continue aspirin, Plavix, statin. 8. Asthma, suspected COPD given extensive smoking history-recommend follow-up with pulmonary medicine for pulmonary function testing at discharge. Albuterol aerosol as needed for shortness of breath. 9. Obesity-encourage diet and lifestyle modifications. 10. Anxiety-continue home duloxetine regimen. 11. Obstructive sleep apnea-noncompliant with CPAP. DVT prophylaxis-Lovenox subcu. This patient was seen by ASHER Roblero under the supervision of Dr. Peralta. <Samuel Peralta - Last Filed: 04/09/18 17:22> History of Present Illness Seen and examined in the ER and in PCU Patient came to ER with chest pain, left-sided, multiple times since yesterday. As mentioned above he had a recent PCI in mid left circumflex and proximal RCA March 03, 2018 and stress echo on 04/05/2018 which is read as abnormal. Initially, patient was trying to walk out in ED or signed AMA but he was convinced to stay by ER physician Dr. Elizondo and myself [] Past Medical History Medical History: Medical History (Last Updated 04/05/18 @ 13:01 by Nasima Orr) Chest pain (Acute) R07.9 Abnormal stress test (Acute) R94.39 Atherosclerosis of coronary artery of [place] heart without angina pectoris ( Acute) I25.10 PTCA/SHELBY of the of mid LCX with a 3.0 x 16 Promus Synergy and PTCA/SHELBY of the Proximal RCA recent occlusion with a 3.5 x 38 Promus Synergy 03/06/18 Nicotine dependence (Chronic) F17.200 Hyperlipidemia (Chronic) E78.5 Hypertension (Chronic) I10 DVT (deep venous thrombosis) I82.409 MGUS (monoclonal gammopathy of unknown significance) D47.2 TIA (transient ischemic attack) G45.9 Allergies acetaminophen [From Vicodin] Adverse Reaction (Verified 02/20/18 21:24) Upset Stomach cyclobenzaprine [From Flexeril] Adverse Reaction (Verified 02/20/18 21:24) Upset Stomach hydrocodone bitartrate [From Vicodin] Adverse Reaction (Verified 02/20/18 21:24) Upset Stomach tramadol Adverse Reaction (Verified 02/20/18 21:24) Upset Stomach Surgical History: Surgical History (Last Reviewed 04/09/18 @ 16:18 by Aisha Vázquez NP-C) History of coronary artery stent placement (Chronic) Onset Date: 03/06/18 Z95.5 PTCA/SHELBY of the of mid LCX with a 3.0 x 16 Promus Synergy and PTCA/SHELBY of the Proximal RCA recent occlusion with a 3.5 x 38 Promus Synergy 03/06/18 H/O carpal tunnel repair Z98.890 History of arthroscopic knee surgery Z98.890 Hx of cholecystectomy Z90.49 - Physical Exam General: Alert, Oriented x3, Cooperative HEENT: Atraumatic, PERRLA, EOMI, Normocephalic Neck: Supple, No JVD, Negative Carotid Bruits Lungs: Clear to auscultation, Normal air movement Cardiovascular: Regular rate, Normal S1, Normal S2, No murmurs Abdomen: Bowel Sounds Present, Soft, Non Tender Extremities: No edema, Capillary Refill Less than 3 Seconds, Edema Skin: No rashes, No breakdown Musculoskeletal: No Tenderness to Palpation of Joints or Extremities Neurological: Cranial nerves II-XII grossly intact Psych/Mental Status: Normal Affect, Appropriate Vital Signs Temp Pulse Resp BP Pulse Ox 98.3 F 70 14 157/98 H 95 04/09/18 17:07 04/09/18 17:07 04/09/18 17:07 04/09/18 17:07 04/09/18 17:07 Oxygen Delivery Method Room Air Weight: 244 lb Body Mass Index (BMI) 38.2 Assessment/Plan This patient was seen in conjunction with Aisha MATIAS. I have independently interviewed and examined the patient and reviewed pertinent history, examination findings, laboratory and plan of management. I have reviewed the note and agree with the documented findings with the few additional points. In brief, patient is admitted for frequent chest pain for last 2 days with no relation to food or exertion, very concerning for unstable angina in view of recent abnormal stress echo. Patient is also chronic a smoker and has wheezing on exam, possible COPD. patient had PFT many years ago but neither he remembers result nor documentation is available. He also has obstructive sleep apnea and has CPAP but probably noncompliant. EKG shows slight ST elevation in V2 to V4 which is new as compared to previous EKG on 03/07/2018 but has old T inversion in inferior leads. I have discussed my assessment with WINCH OPERATOR, Aisha and orders have been reviewed. Laboratory Results 04/09/18 13:02: WBC 6.7, RBC 4.31 L, Hgb 14.0, Hct 42.2, MCV 97.9 H, MCH 32.5 H , MCHC 33.2, RDW 14.9 H, RDW Differential 51.8 H, Plt Count 228, MPV 8.9, Immature Gran % (Auto) 0.300, Neut % (Auto) 49.9, Lymph % (Auto) 36.5, [place] % ( Auto) 10.3 H, Eos % (Auto) 2.4, Baso % (Auto) 0.6, Absolute Neuts (auto) 3.3, Absolute Lymphs (auto) 2.44, Total Counted Not Reportable 04/09/18 13:02: Sodium 140, Potassium 3.6, Chloride 103, Carbon Dioxide 30.0, Anion Gap 7, BUN 17, Creatinine 1.03, Estim Creat Clear Calc 77.54, Est GFR ( MDRD) Af Amer 97, Est GFR (MDRD) Non-Af 80, BUN/Creatinine Ratio 16.5, Glucose 86, Calcium 9.3, Troponin I < 0.015 04/09/18 13:02: PT 12.9, INR 1.0, APTT 27.5 Code Visit OBSV E&M: 69019 Initial observation care L3
--- NOTE | 2018-04-09 17:39 | PCM.CONS.C ---
Problem List (1) Unstable angina pectoris Status: Acute (2) CAD (coronary artery disease) Status: Chronic Qualifiers: Coronary Disease-Associated Artery/Lesion type: [place] artery [place] vs. transplanted heart: [place] heart Associated angina: with unstable angina Qualified Code(s): I25.110 - Atherosclerotic heart disease of [place] coronary artery with unstable angina pectoris (3) History of coronary artery stent placement Status: Chronic Comment: PTCA/SHELBY of the of mid LCX with a 3.0 x 16 Promus Synergy and PTCA/SHELBY of the Proximal RCA recent occlusion with a 3.5 x 38 Promus Synergy 03/06/18 (4) Hyperlipidemia Status: Chronic Qualifiers: (5) Hypertension Status: Chronic Qualifiers: Reason for Consult Date of Consultation: 04/09/18 History of Present Illness: The patient is a 53 year old white male with a past cardiovascular history which has included underlying hyperlipidemia, hypertension, premature CAD, status post recent LCx PTCA/SHELBY and RCA PTCA/SHELBY who now presents status post a recent stress echocardiogram (dobutamine), which was considered abnormal, for symptoms concerning for unstable angina pectoris. The patient states that he has been having abdominal central chest discomfort, sharp sided left chest discomfort, and progressive shortness of breath and dyspnea especially with exertion. He also notes that he can have shortness of breath and dyspnea at rest when he attempts to lie supine. He has had waxing and waning lower extremity peripheral pitting edema near the ankle area more so on the right than left. There has been no near syncope or syncope. He states he was evaluated by Misha Juarez MD, for the aforementioned concerns and was recommended to have a future repeat diagnostic cardiac catheterization and possible additional PCI. Based upon his ongoing symptoms he presented to the emergency department. He was subsequently brought into the hospital for further evaluation and care. His initial troponin I level was negative. His ECG demonstrated sinus rhythm with nonspecific T-wave abnormality. [] Past Medical History Allergies/Adverse Reactions: Allergies acetaminophen [From Vicodin] Adverse Reaction (Verified 02/20/18 21:24) Upset Stomach cyclobenzaprine [From Flexeril] Adverse Reaction (Verified 02/20/18 21:24) Upset Stomach hydrocodone bitartrate [From Vicodin] Adverse Reaction (Verified 02/20/18 21:24) Upset Stomach tramadol Adverse Reaction (Verified 02/20/18 21:24) Upset Stomach Home Medications: Ambulatory Orders Medication Instructions Recorded Zolpidem Tartrate [Ambien] 10 mg PO QHS PRN PRN 01/08/15 Losartan/Hydrochlorothiazide 1 ea PO DAILY 03/09/17 [Losartan-Hctz 100-25 mg Tab] Albuterol IH (ProAir) [Proair Hfa] 1 - 2 puff INHALATION Q6H PRN PRN 02/20/18 Duloxetine HCl [Duloxetine HCl] 60 mg PO DAILY 02/20/18 aspirin 81 mg tablet,delayed 81 mg PO DAILY 03/16/18 release carvedilol 25 mg tablet 50 mg PO BID 03/16/18 clopidogrel 75 mg tablet 75 mg PO DAILY 03/16/18 pravastatin 40 mg tablet 40 mg PO DAILY 03/16/18 isosorbide mononitrate ER 60 mg 60 mg PO QDAY #30 tab 04/05/18 tablet,extended release 24 hr Buspirone HCl [Buspirone HCl] 10 mg PO DAILY 04/09/18 Nitroglycerin [Nitrostat] 0.4 mg SUBLINGUAL Q5M PRN 04/09/18 Omeprazole 40 mg PO DAILY 04/09/18 Past Medical History (Chronic Problems): Chronic Problems (Last Updated 04/05/18 @ 13:01 by Nasima Orr) CAD (coronary artery disease) (Chronic) History of coronary artery stent placement (Chronic 03/06/18) PTCA/SHELBY of the of mid LCX with a 3.0 x 16 Promus Synergy and PTCA/SHELBY of the Proximal RCA recent occlusion with a 3.5 x 38 Promus Synergy 03/06/18 Atherosclerosis of coronary artery of [place] heart without angina pectoris (Chronic) PTCA/SHELBY of the of mid LCX with a 3.0 x 16 Promus Synergy and PTCA/SHELBY of the Proximal RCA recent occlusion with a 3.5 x 38 Promus Synergy 03/06/18 Nicotine dependence (Chronic) Hyperlipidemia (Chronic) Hypertension (Chronic) Surgical History: angioplasty Psychiatric History: No pertinent psych hx - *Family History Maternal History Items: No pertinent history Paternal History Items: No pertinent history Lives: Spouse/ Significant Other Smoking Status: Current every day smoker Tobacco Use: Cigarettes Alcohol: None Drugs: None Review of Systems - Review of Systems General: Denies: Fever, Night Sweats, Fatigue Cardiovascular: Reports: Chest Discomfort, Chest Discomfort at Rest, Chest Discomfort with Exertion, Shortness of Breath, Shortness of Breath at Rest, Shortness of Breath with Exertion, Orthopnea, Peripheral Edema. Denies: PND, Palpitations, Lightheadedness, Dizziness, Near Syncope, Syncope Respiratory: Reports: Shortness of Breath. Denies: Cough, Sputum Production, Hemoptysis Gastrointestinal: Denies: Hematemesis, Hematochezia, Melena Genitourinary: Denies: Dysuria, Hematuria Skin: Denies: Rash Subjectve: This is a 53-year-old white male who appears to be resting comfortably at the moment in no acute distress. Objective: Vital Signs Temp Pulse Resp BP Pulse Ox 98.3 F 66 14 157/98 H 95 04/09/18 17:07 04/09/18 17:20 04/09/18 17:07 04/09/18 17:07 04/09/18 17:07 Oxygen Delivery Method Room Air Weight: 244 lb Body Mass Index (BMI) 38.2 General: Healthy Appearing, Awake, Alert, Oriented x 3, Cooperative, No Acute Distress HEENT: Atraumatic, Normocephalic, PERRL, EOMI, Sclera Non Icteric Oral: Moist Mucosa Neck: Supple, Good ROM, No JVD Lungs: Clear to auscultation Cardiovascular: Regular Rhythm, Normal S1, Normal S2 Vascular: No Carotid Bruits Abdomen: Bowel Sounds Present, Soft, Non Tender Extremities: Trace RLE Edema Neurological: No Focal Motor or Sensory Deficit Psych/Mental Status: Appropriate, Normal Affect Rhythm: Sinus rhythm EKG: Sinus rhythm; nonspecific T-wave abnormality Stress Test: 04/05/2018: Dobutamine stress echocardiogram: Per the report: Considered abnormal and positive for ischemia by echocardiographic criteria with inferior and posterior hypokinesis at peak infusion with a final LVEF of 55% Cardiac Cath: 03/06/2018: Left ventricle demonstrating hypokinesis of the inferobasilar segment with an estimated LVEF of 45-50%; left main coronary artery normal; LAD with mild luminal irregularities less than 30%; LCx with a mid 75% stenosis; RCA being occluded with the right PDA having mid 70% diffuse stenosis; with collateral flow from the left to the right PCI: 03/06/2018: Successful PTCA/SHELBY of the LCx with a 3.0?16 Promus synergy stent and successful PTCA/SHELBY of the proximal RCA with a 3.5?38 Promus Synergy stent with a comment that the CAPACITOR INSPECTOR was not intervened on due to previous inferior infarct and proximal LV wall motion abnormalities noted on nuclear imaging with an additional comment of possible elective PCI of the PDA patient has recurrent symptoms or evidence of inferior ischemia CXR: Preliminary evaluation: No acute cardiopulmonary disease process appreciated : Assessment/Plan 1. Unstable angina pectoris The patient presents back with symptoms occurring both at rest and with exertion which he states are similar to symptoms he had prior to his recent diagnosis and PCI procedures. His initial cardiac enzymes and ECG demonstrated no acute changes. He is already had a post PCI pharmacologic stress echocardiographic study which is been considered abnormal. At the present time the patient will continue medical management as deemed appropriate. He is being considered for repeat evaluation with diagnostic cardiac catheterization to reassess his coronary/stent status as well as his remaining [place] vessel coronary artery disease. If he has restenosis of his recently placed stents and hopefully he can undergo repeat PCI. If these are patent and he continues to have notation of a small caliber diffusely diseased right PDA, then consideration want to be given by interventional cardiology, whether he is a candidate for an attempt at PCI of such a vessel. The above was discussed with the patient. He was agreeable to this approach. 2. CAD status post PCI The patient has a history of underlying CAD as noted above. Again he is continuing to be monitored. He will continue medical management. He will proceed with further evaluation as described above. 3. Hyperlipidemia The patient will continue risk factor modification and care as deemed appropriate. 4. Hypertension The patient will continue to have his blood pressure monitor. He will continue to have his medications adjusted as needed. Comment: The above was discussed with the patient, the [facility] emergency department staff, and Dr. Peralta of the [facility] hospitalist staff. This note was generated with [employer] dictation software. It may contain incorrect words, spelling, and punctuation that were not noted in checking the note before signing.
--- NOTE | 2018-04-09 17:50 | CON.PCM_ITS ---
Problem List (1) Unstable angina pectoris Status: Acute (2) CAD (coronary artery disease) Status: Chronic Qualifiers: Coronary Disease-Associated Artery/Lesion type: [place] artery [place] vs. transplanted heart: [place] heart Associated angina: with unstable angina Qualified Code(s): I25.110 - Atherosclerotic heart disease of [place] coronary artery with unstable angina pectoris (3) History of coronary artery stent placement Status: Chronic Comment: PTCA/SHELBY of the of mid LCX with a 3.0 x 16 Promus Synergy and PTCA/SHELBY of the Proximal RCA recent occlusion with a 3.5 x 38 Promus Synergy 03/06/18 (4) Hyperlipidemia Status: Chronic Qualifiers: (5) Hypertension Status: Chronic Qualifiers: Reason for Consult Date of Consultation: 04/09/18 History of Present Illness: The patient is a 53 year old white male with a past cardiovascular history which has included underlying hyperlipidemia, hypertension, premature CAD, status post recent LCx PTCA/SHELBY and RCA PTCA/SHELBY who now presents status post a recent stress echocardiogram (dobutamine), which was considered abnormal, for symptoms concerning for unstable angina pectoris. The patient states that he has been having abdominal central chest discomfort, sharp sided left chest discomfort, and progressive shortness of breath and dyspnea especially with exertion. He also notes that he can have shortness of breath and dyspnea at rest when he attempts to lie supine. He has had waxing and waning lower extremity peripheral pitting edema near the ankle area more so on the right than left. There has been no near syncope or syncope. He states he was evaluated by Misha Juarez MD, for the aforementioned concerns and was recommended to have a future repeat diagnostic cardiac catheterization and possible additional PCI. Based upon his ongoing symptoms he presented to the emergency department. He was subsequently brought into the hospital for further evaluation and care. His initial troponin I level was negative. His ECG demonstrated sinus rhythm with nonspecific T-wave abnormality. [] Past Medical History Allergies/Adverse Reactions: Allergies acetaminophen [From Vicodin] Adverse Reaction (Verified 02/20/18 21:24) Upset Stomach cyclobenzaprine [From Flexeril] Adverse Reaction (Verified 02/20/18 21:24) Upset Stomach hydrocodone bitartrate [From Vicodin] Adverse Reaction (Verified 02/20/18 21:24) Upset Stomach tramadol Adverse Reaction (Verified 02/20/18 21:24) Upset Stomach Home Medications: Ambulatory Orders Medication Instructions Recorded Zolpidem Tartrate [Ambien] 10 mg PO QHS PRN PRN 01/08/15 Losartan/Hydrochlorothiazide 1 ea PO DAILY 03/09/17 [Losartan-Hctz 100-25 mg Tab] Albuterol IH (ProAir) [Proair Hfa] 1 - 2 puff INHALATION Q6H PRN PRN 02/20/18 Duloxetine HCl [Duloxetine HCl] 60 mg PO DAILY 02/20/18 aspirin 81 mg tablet,delayed 81 mg PO DAILY 03/16/18 release carvedilol 25 mg tablet 50 mg PO BID 03/16/18 clopidogrel 75 mg tablet 75 mg PO DAILY 03/16/18 pravastatin 40 mg tablet 40 mg PO DAILY 03/16/18 isosorbide mononitrate ER 60 mg 60 mg PO QDAY #30 tab 04/05/18 tablet,extended release 24 hr Buspirone HCl [Buspirone HCl] 10 mg PO DAILY 04/09/18 Nitroglycerin [Nitrostat] 0.4 mg SUBLINGUAL Q5M PRN 04/09/18 Omeprazole 40 mg PO DAILY 04/09/18 Past Medical History (Chronic Problems): Chronic Problems (Last Updated 04/05/18 @ 13:01 by Nasima Orr) CAD (coronary artery disease) (Chronic) History of coronary artery stent placement (Chronic 03/06/18) PTCA/SHELBY of the of mid LCX with a 3.0 x 16 Promus Synergy and PTCA/SHELBY of the Proximal RCA recent occlusion with a 3.5 x 38 Promus Synergy 03/06/18 Atherosclerosis of coronary artery of [place] heart without angina pectoris ( Chronic) PTCA/SHELBY of the of mid LCX with a 3.0 x 16 Promus Synergy and PTCA/SHELBY of the Proximal RCA recent occlusion with a 3.5 x 38 Promus Synergy 03/06/18 Nicotine dependence (Chronic) Hyperlipidemia (Chronic) Hypertension (Chronic) Surgical History: angioplasty Psychiatric History: No pertinent psych hx - *Family History Maternal History Items: No pertinent history Paternal History Items: No pertinent history Lives: Spouse/ Significant Other Smoking Status: Current every day smoker Tobacco Use: Cigarettes Alcohol: None Drugs: None Review of Systems - Review of Systems General: Denies: Fever, Night Sweats, Fatigue Cardiovascular: Reports: Chest Discomfort, Chest Discomfort at Rest, Chest Discomfort with Exertion, Shortness of Breath, Shortness of Breath at Rest, Shortness of Breath with Exertion, Orthopnea, Peripheral Edema. Denies: PND, Palpitations, Lightheadedness, Dizziness, Near Syncope, Syncope Respiratory: Reports: Shortness of Breath. Denies: Cough, Sputum Production, Hemoptysis Gastrointestinal: Denies: Hematemesis, Hematochezia, Melena Genitourinary: Denies: Dysuria, Hematuria Skin: Denies: Rash Subjectve: This is a 53-year-old white male who appears to be resting comfortably at the moment in no acute distress. Objective: Vital Signs Temp Pulse Resp BP Pulse Ox 98.3 F 66 14 157/98 H 95 04/09/18 17:07 04/09/18 17:20 04/09/18 17:07 04/09/18 17:07 04/09/18 17:07 Oxygen Delivery Method Room Air Weight: 244 lb Body Mass Index (BMI) 38.2 General: Healthy Appearing, Awake, Alert, Oriented x 3, Cooperative, No Acute Distress HEENT: Atraumatic, Normocephalic, PERRL, EOMI, Sclera Non Icteric Oral: Moist Mucosa Neck: Supple, Good ROM, No JVD Lungs: Clear to auscultation Cardiovascular: Regular Rhythm, Normal S1, Normal S2 Vascular: No Carotid Bruits Abdomen: Bowel Sounds Present, Soft, Non Tender Extremities: Trace RLE Edema Neurological: No Focal Motor or Sensory Deficit Psych/Mental Status: Appropriate, Normal Affect Rhythm: Sinus rhythm EKG: Sinus rhythm; nonspecific T-wave abnormality Stress Test: 04/05/2018: Dobutamine stress echocardiogram: Per the report: Considered abnormal and positive for ischemia by echocardiographic criteria with inferior and posterior hypokinesis at peak infusion with a final LVEF of 55 % Cardiac Cath: 03/06/2018: Left ventricle demonstrating hypokinesis of the inferobasilar segment with an estimated LVEF of 45-50%; left main coronary artery normal; LAD with mild luminal irregularities less than 30%; LCx with a mid 75% stenosis; RCA being occluded with the right PDA having mid 70% diffuse stenosis; with collateral flow from the left to the right PCI: 03/06/2018: Successful PTCA/SHELBY of the LCx with a 3.0?16 Promus synergy stent and successful PTCA/SHELBY of the proximal RCA with a 3.5?38 Promus Synergy stent with a comment that the PHYSICIAN RELATIONS MANAGER was not intervened on due to previous inferior infarct and proximal LV wall motion abnormalities noted on nuclear imaging with an additional comment of possible elective PCI of the PDA patient has recurrent symptoms or evidence of inferior ischemia CXR: Preliminary evaluation: No acute cardiopulmonary disease process appreciated : Assessment/Plan 1. Unstable angina pectoris The patient presents back with symptoms occurring both at rest and with exertion which he states are similar to symptoms he had prior to his recent diagnosis and PCI procedures. His initial cardiac enzymes and ECG demonstrated no acute changes. He is already had a post PCI pharmacologic stress echocardiographic study which is been considered abnormal. At the present time the patient will continue medical management as deemed appropriate. He is being considered for repeat evaluation with diagnostic cardiac catheterization to reassess his coronary/stent status as well as his remaining [place] vessel coronary artery disease. If he has restenosis of his recently placed stents and hopefully he can undergo repeat PCI. If these are patent and he continues to have notation of a small caliber diffusely diseased right PDA, then consideration want to be given by interventional cardiology, whether he is a candidate for an attempt at PCI of such a vessel. The above was discussed with the patient. He was agreeable to this approach. 2. CAD status post PCI The patient has a history of underlying CAD as noted above. Again he is continuing to be monitored. He will continue medical management. He will proceed with further evaluation as described above. 3. Hyperlipidemia The patient will continue risk factor modification and care as deemed appropriate. 4. Hypertension The patient will continue to have his blood pressure monitor. He will continue to have his medications adjusted as needed. Comment: The above was discussed with the patient, the [facility] emergency department staff, and Dr. Peralta of the [facility] hospitalist staff. This note was generated with [employer] dictation software. It may contain incorrect words, spelling, and punctuation that were not noted in checking the note before signing.
[2018-04-09] MEDS: Carvedilol 25 MG Tablet 50 MG PO (21:09)
[2018-04-09] MEDS: Zolpidem Tartrate 5 MG Tablet PO (21:09)
[2018-04-09] MEDS: DiphenhydrAMINE 25 MG Capsule 50 MG PO (23:01)
[2018-04-09] MEDS: Acetaminophen 500 MG Tablet 1000 MG PO (23:02)
[2018-04-10] VITALS (16 sets, daily range): BP systolic 101–161; BP diastolic 56–98; PULSE 55–73; RESP 16–18; TEMP 36.4–36.6; O2SAT 92–95
[2018-04-10 04:35] LABS: Hematocrit 40.5 % (40-54); Hemoglobin 13.4 g/dl (13.0-16.5); Mean Corp Hgb Conc 33.1 g/gl (32-36); Mean Corpuscular Hgb 32.8 pg (27.0-32.0); Platelet Count 201 K/mm3 (150-450); RBC Distribution Width CV 14.8 % (11.6-14.6); RBC Distribution Width SD 52.5 fl (35.1-43.9); Red Blood Count 4.09 M/mm3 (4.6-6.2); White Blood Count 5.4 K/mm3 (4.4-11.0)
[2018-04-10 04:41] LABS: Scan Indicated on CBC? Y/N NO
[2018-04-10 04:42] LABS: Partial Thromboplast Time 29.1 Seconds (24.1-36.2)
[2018-04-10 04:47] LABS: Anion Gap 8 (5-15); BUN 21 mg/dL (7-18); BUN/Creat Ratio 17.2 RATIO (10-20); Calcium,Total 8.9 mg/dL (8.5-10.1); Chloride 100 mmol/L (98-107); Creatinine, Serum 1.22 mg/dL (0.70-1.30); EST Glomerular Filtration Rate 66 mL/min (>60); Est Glom Filt Rate - Afr Amer 80 mL/min (>60); Estimated Creatinine Clearance 65.47 ml/min; Glucose 104 mg/dL (74-106); Potassium 3.6 mmol/L (3.5-5.1); Sodium Level 142 mmol/L (136-145)
--- NOTE | 2018-04-10 05:55 | EKG12_ITS ---
Test Reason : AM EKG Blood Pressure : / mmHG Vent. Rate : 057 BPM Atrial Rate : 057 BPM P-R Int : 204 ms QRS Dur : 094 ms QT Int : 436 ms P-R-T Axes : 059 056 -16 degrees QTc Int : 424 ms Sinus bradycardia with sinus arrhythmia Otherwise normal ECG When compared with ECG of 09-APR-2018 12:54, MANUAL COMPARISON REQUIRED, DATA IS UNCONFIRMED Confirmed by PALOMA OLEARY, KAMILLE ([id number]), film editor supervisor YORDY BOWDEN ([id number]) on 04/15/2018 2:13:02 PM Referred By: Cachorro Domingo Confirmed By:KAMILLE DOW MD
[2018-04-10 06:08] LABS: Prothrombin Time (Protime)PT. 12.8 SECONDS (11.7-14.9)
[2018-04-10 06:33] LABS: Cholesterol 229 mg/dL (200); High Density Lipoprotein 33 mg/dL; Triglycerides 457 mg/dL
[2018-04-10] MEDS: Isosorbide Mononitrate 60 MG Tablet PO (06:33)
[2018-04-10] MEDS: Clopidogrel Bisulfate 75 MG Tablet PO (06:34)
[2018-04-10] MEDS: Carvedilol 25 MG Tablet 50 MG PO (06:34)
[2018-04-10] MEDS: Aspirin E.C. 81 MG Tablet PO (06:34)
[2018-04-10 06:37] LABS: Mucous, Urine 0 SEEN /hpf (<or=2+); Red Blood Cells-Urine 0 SEEN /hpf (0-5); White Blood Cells 0 SEEN /hpf (0-5)
[2018-04-10 06:51] LABS: Color, Urine Yellow (Yellow); Glucose, Dipstick Normal (Normal); Ketone-Dipstick Negative (Negative); Leukocyte Esterase-Dipstick Negative /ul (Negative); Nitrite-Dipstick Negative (Negative); Occult Blood-Urine Negative /ul (Negative); Protein-Dipstick Negative (Negative); Specific Gravity, Urine 1.015 (1.002-1.030); Urine Bilirubin Dipstick Negative (Negative); Urine Clarity Clear (Clear); Urine Urobilinogen Normal (Normal); Urine pH 6.5 (5.0 - 8.0)
[2018-04-10 07:01] LABS: Bacteria RARE /hpf (None Seen); Squamous Epithelial Cells - UA 0-5 SEEN /hpf (0-5)
--- NOTE | 2018-04-10 09:27 | PCM.PN.CARD ---
Subjectve: The patient states he slept well last night without ongoing chest discomfort or difficulty breathing. He is now status post diagnostic cardiac catheterization without acute complaint. Objective: Vital Signs Temp Pulse Resp BP Pulse Ox 97.5 F L 61 16 160/98 H 95 04/10/18 06:31 04/10/18 06:44 04/10/18 06:31 04/10/18 06:31 04/10/18 06:31 Oxygen Delivery Method Room Air Weight: 244 lb Body Mass Index (BMI) 38.2 Intake and Output for Last 24 Hours 04/08/18 04/09/18 04/10/18 23:59 23:59 23:59 Intake Total 240 / 240 Balance 240 / 240 General: Awake, Alert, Oriented x 3, Cooperative, No Acute Distress HEENT: Atraumatic, Normocephalic, PERRL, EOMI Oral: Moist Mucosa Neck: Supple, Good ROM Lungs: Clear to auscultation Cardiovascular: Regular Rhythm, Normal S1, Normal S2 Vascular: No Carotid Bruits, Normal Radial Pulses Abdomen: Bowel Sounds Present, Soft, Non Tender Extremities: No Cyanosis, No Clubbing, No edema Neurological: No Focal Motor or Sensory Deficit Psych/Mental Status: Appropriate, Normal Affect 04/10/18 04:00: PT 12.8, INR 1.0 04/10/18 04:00: Triglycerides 457 H, Cholesterol 229 H, LDL Cholesterol TNP, VLDL Cholesterol TNP, HDL Cholesterol 33 L 04/10/18 04:00: WBC 5.4, RBC 4.09 L, Hgb 13.4, Hct 40.5, MCV 99.0 H, MCH 32.8 H, MCHC 33.1, RDW 14.8 H, RDW Differential 52.5 H, Plt Count 201, MPV 9.0 04/10/18 04:00: APTT 29.1 04/10/18 04:00: Sodium 142, Potassium 3.6, Chloride 100, Carbon Dioxide 34.0 H, Anion Gap 8, BUN 21 H, Creatinine 1.22, Est GFR (MDRD) Af Amer 80, Est GFR (MDRD) Non-Af 66, BUN/Creatinine Ratio 17.2, Glucose 104, Calcium 8.9 04/10/18 06:25: Urine Color Yellow, Urine Clarity Clear, Urine pH 6.5, Ur Specific [place] 1.015, Urine Protein Negative, Urine Glucose (UA) Normal, Urine Ketones Negative, Urine Occult Blood Negative, Urine Nitrite Negative, Urine Bilirubin Negative, Urine Urobilinogen Normal, Ur Leukocyte Esterase Negative, Urine RBC 0 SEEN, Urine WBC 0 SEEN Rhythm: Sinus rhythm EKG: Sinus rhythm; continued T wave abnormality; no new acute ECG changes Cardiac Cath: Please see official report Medical Necessity - Tobacco Use Smoking Status: Current every day smoker Tobacco Use: Cigarettes Assessment/Plan 1. Unstable angina pectoris The patient presents back with symptoms occurring both at rest and with exertion which he states are similar to symptoms he had prior to his recent diagnosis and PCI procedures. His initial cardiac enzymes and ECG demonstrated no acute changes. He is already had a post PCI pharmacologic stress echocardiographic study which is been considered abnormal. He is now status post diagnostic cardiac catheterization. His LCx and RCA stents remain patent. He continues with an element of RCA distal disease involving the bifurcation of the right PDA right posterior lateral branch and the right PDA mid area. The patient's case was discussed with Dr. Sinha of interventional cardiology of [facility] rate at the present time he recommended, as his LCx and RCA stents are patent, noting the RCA had been previously occluded and is now patent despite distal vessel disease, including a smaller right PDA, to continue medical management allow the stents to continue to mature, and follow-up. If the patient continues with symptoms despite adjustment of medications then consideration could be given as to whether or not the patient is a candidate for any additional PCI to the bifurcating area of the right PDA/posterior lateral branch or the mid right PDA area. Thus, no additional PCI was immediately planned. 2. CAD status post PCI The patient has a history of underlying CAD as noted above. Again he is continuing to be monitored. He will continue medical management. 3. Hyperlipidemia The patient will continue risk factor modification and care as deemed appropriate. 4. Hypertension The patient will continue to have his blood pressure monitor. He will continue to have his medications adjusted as needed. Thus, overall, the plan will be for continued optimization of medical management. This may include the addition of agents such as Ranexa. The patient should continue to follow with his primary bleach tester, Dr. Misha Juarez, for continued outpatient cardiovascular follow-up and further evaluation and care as deemed appropriate. Comment: The above was discussed with the patient and his family members present. This note was generated with [employer] software. It may contain incorrect words, spelling, and punctuation that were not noted in checking the note before signing.
--- NOTE | 2018-04-10 09:32 | PN.CARD_ITS ---
Subjectve: The patient states he slept well last night without ongoing chest discomfort or difficulty breathing. He is now status post diagnostic cardiac catheterization without acute complaint. Objective: Vital Signs Temp Pulse Resp BP Pulse Ox 97.5 F L 61 16 160/98 H 95 04/10/18 06:31 04/10/18 06:44 04/10/18 06:31 04/10/18 06:31 04/10/18 06:31 Oxygen Delivery Method Room Air Weight: 244 lb Body Mass Index (BMI) 38.2 Intake and Output for Last 24 Hours 04/08/18 04/09/18 04/10/18 23:59 23:59 23:59 Intake Total 240 / 240 Balance 240 / 240 General: Awake, Alert, Oriented x 3, Cooperative, No Acute Distress HEENT: Atraumatic, Normocephalic, PERRL, EOMI Oral: Moist Mucosa Neck: Supple, Good ROM Lungs: Clear to auscultation Cardiovascular: Regular Rhythm, Normal S1, Normal S2 Vascular: No Carotid Bruits, Normal Radial Pulses Abdomen: Bowel Sounds Present, Soft, Non Tender Extremities: No Cyanosis, No Clubbing, No edema Neurological: No Focal Motor or Sensory Deficit Psych/Mental Status: Appropriate, Normal Affect 04/10/18 04:00: PT 12.8, INR 1.0 04/10/18 04:00: Triglycerides 457 H, Cholesterol 229 H, LDL Cholesterol TNP, VLDL Cholesterol TNP, HDL Cholesterol 33 L 04/10/18 04:00: WBC 5.4, RBC 4.09 L, Hgb 13.4, Hct 40.5, MCV 99.0 H, MCH 32.8 H , MCHC 33.1, RDW 14.8 H, RDW Differential 52.5 H, Plt Count 201, MPV 9.0 04/10/18 04:00: APTT 29.1 04/10/18 04:00: Sodium 142, Potassium 3.6, Chloride 100, Carbon Dioxide 34.0 H, Anion Gap 8, BUN 21 H, Creatinine 1.22, Est GFR (MDRD) Af Amer 80, Est GFR (MDRD ) Non-Af 66, BUN/Creatinine Ratio 17.2, Glucose 104, Calcium 8.9 04/10/18 06:25: Urine Color Yellow, Urine Clarity Clear, Urine pH 6.5, Ur Specific [place] 1.015, Urine Protein Negative, Urine Glucose (UA) Normal, Urine Ketones Negative, Urine Occult Blood Negative, Urine Nitrite Negative, Urine Bilirubin Negative, Urine Urobilinogen Normal, Ur Leukocyte Esterase Negative, Urine RBC 0 SEEN, Urine WBC 0 SEEN Rhythm: Sinus rhythm EKG: Sinus rhythm; continued T wave abnormality; no new acute ECG changes Cardiac Cath: Please see official report Medical Necessity - Tobacco Use Smoking Status: Current every day smoker Tobacco Use: Cigarettes Assessment/Plan 1. Unstable angina pectoris The patient presents back with symptoms occurring both at rest and with exertion which he states are similar to symptoms he had prior to his recent diagnosis and PCI procedures. His initial cardiac enzymes and ECG demonstrated no acute changes. He is already had a post PCI pharmacologic stress echocardiographic study which is been considered abnormal. He is now status post diagnostic cardiac catheterization. His LCx and RCA stents remain patent. He continues with an element of RCA distal disease involving the bifurcation of the right PDA right posterior lateral branch and the right PDA mid area. The patient's case was discussed with Dr. Sinha of interventional cardiology of [facility] rate at the present time he recommended, as his LCx and RCA stents are patent, noting the RCA had been previously occluded and is now patent despite distal vessel disease, including a smaller right PDA, to continue medical management allow the stents to continue to mature, and follow- up. If the patient continues with symptoms despite adjustment of medications then consideration could be given as to whether or not the patient is a candidate for any additional PCI to the bifurcating area of the right PDA/ posterior lateral branch or the mid right PDA area. Thus, no additional PCI was immediately planned. 2. CAD status post PCI The patient has a history of underlying CAD as noted above. Again he is continuing to be monitored. He will continue medical management. 3. Hyperlipidemia The patient will continue risk factor modification and care as deemed appropriate. 4. Hypertension The patient will continue to have his blood pressure monitor. He will continue to have his medications adjusted as needed. Thus, overall, the plan will be for continued optimization of medical management. This may include the addition of agents such as Ranexa. The patient should continue to follow with his primary aeronautical drafter, Dr. Misha Juarez, for continued outpatient cardiovascular follow-up and further evaluation and care as deemed appropriate. Comment: The above was discussed with the patient and his family members present. This note was generated with [employer] software. It may contain incorrect words, spelling, and punctuation that were not noted in checking the note before signing.
[2018-04-10] MEDS: Losartan Potassium 100 MG Tablet PO (09:39)
[2018-04-10] MEDS: Pravastatin 40 MG Tablet PO (09:39)
[2018-04-10] MEDS: DULoxetine Hcl 60 MG Capsule PO (09:39)
[2018-04-10] MEDS: busPIRone 5 MG Tablet 10 MG PO (09:45)
[2018-04-10] MEDS: Acetaminophen 500 MG Tablet 1000 MG PO (09:45)
[2018-04-10] MEDS: 0.9% Normal Saline 1,000 ML 75 ML IV (09:48)
--- NOTE | 2018-04-10 09:48 | CL.D_ITS ---
Patient Name: TWIN CHAMBERS Study Date: 04/10/2018 Performing: Alex Figueroa MD Ht: 67 inches 170 cm : 1965 Wt: 245 lbs 111 kg Age: 53 Gender: male BSA: 2.2 PROCEDURE(S) PERFORMED [id number]/COR/LV CLINICAL PROFILE AND INDICATIONS Indications: Worsening Angina Heart Failure: None Stress/Imaging Stress Echocardiogram: Yes Result: PositiveStress Echocardiogram: Positive Angina Classification Anginal Classification w/in 2 Weeks: CCS III CAD Presentations: Unstable angina. CONCLUSIONS Elevated Left Ventricular End Diastolic Pressure Segmented LV systolic dysfunction- Mild LVEF: by LV gram 50 % [place] Multivessel CAD RECOMMENDATIONS Risk factor modification Medical therapy DESCRIPTION OF PROCEDURE The patient arrived to the procedure lab. The risks and benefits of the procedure as well as a full d escription of our services here and current unavailability of surgical backup were fully explained to the patient and/or their significant other prior to the catheterization. The Timeout was completed, verifying the correct patient and procedure. The patient's procedural site was prepped and draped in the usual fashion. Local anesthetic was given subcutaneously to right radial region with Lidocaine 2% . Using a modified Seldinger technique, arterial access was obtained via the right radial artery, a 6 Fr sheath was inserted. Right Coronary Artery selective angiography was then performed in multiple v iews using a 5 Fr. 4.0 Hubertus catheter. Left Coronary Artery selective angiography was performed in mu ltiple views using a 5 Fr. 4.0 Hubertus catheter. Left Ventriculography was performed in NEAL projection using a 5 Fr. Pigtail catheter. LV to AO pullback pressures were then recorded.The arterial sheath wa s pulled and a TR Band was applied for hemostasis CORONARY ANGIOGRAPHY DOMINANCE: Right Dominant LEFT HEART ASSESSMENT Left Ventricular Ejection Fraction: by LV Gram 50 % Inferior Basal Hypokinesis. Inferior Mid Hypokinesis - Severe Elevated Left Ventricular End Diastolic Pressure LVEDP: 24 mmHg LEFT MAIN: Angiographically normal LEFT ANTERIOR DECENDING ARTERY: Mild luminal irregularities CIRCUMFLEX ARTERY: MID CIRC: Previously placed stent is patent DISTAL CIRC: Mild luminal irregularities OM 2: Mid - Mild luminal irregularities RIGHT CORONARY ARTERY: Mild luminal irregularities PROX RCA: Previously placed stent is patent with minimal luminal irregularities and eccentric 10-25% instent restenosis MID RCA: Previously placed stent is patent with minimal luminal irrgularities DISTAL RCA: 50 % Stenosis traversing the ostium of the RPDA and involving the ostium of the RAVS RT PLV: small caliber vessel with 50-75 % Stenosis RT PDA: Mid - small caliber vessel with 50-75 % Stenosis VALVE FINDINGS: Normal Aortic Valve function Normal Mitral Valve function AORTIC ROOT: Angiographically normal COMPLICATIONS No Complications PROCEDURE MEDICATIONS Versed 1 mg IV Fentanyl 50 mcg IV Fentanyl 50 mcg IV Versed 1 mg IV Oxygen: 2 L/min via nasal cannula Heparin given IA 04/10/2018 08:40:46 Verapamil 2.5mg, Ntg 100mcgs, 2000 units of Heparin given IA 04/10/2018 08:40:46 SUMMARY OF HEMODYNAMIC DATA Time AIR REST ECG 08:22:14 AO 104/71 (86) SA 08:43:02 LV 129/8, 24 08:52:34 LV 135/9, 27 08:52:41 LV 120/8, 17 08:53:48 LV 127/10, 24 08:53:59 LVp 128/11, 28 08:54:05 AOp 111/68 (87) 08:54:10 Signed By Alex Figueroa MD On 04/10/2018 09:47:10 Alex Figueroa MD
--- NOTE | 2018-04-10 09:58 | PCM.DC ---
- Discharge Diagnoses Current Active Problems: Current Active and Chronic Problems (Last Updated 04/05/18 @ 13:01 by Nasiam Orr) Unstable angina pectoris (Acute) CAD (coronary artery disease) (Chronic) You will use the following diet at home:: Cardiac Discharge Activity: Return to Normal Activity, - - Follow post-op cath instructions. Call your doctor if your incision/area has: Continuous Slow Oozing, Sudden Increased Bleeding, Increased Pain/ Swelling, Increased Redness, Foul Smelling Discharge, Swelling at the incision site Call your doctor if you observe: Shortness of breath, Dizziness, Fainting spells, Chest pain Allergies/Adverse Reactions: Allergies acetaminophen [From Vicodin] Adverse Reaction (Verified 02/20/18 21:24) Upset Stomach cyclobenzaprine [From Flexeril] Adverse Reaction (Verified 02/20/18 21:24) Upset Stomach hydrocodone bitartrate [From Vicodin] Adverse Reaction (Verified 02/20/18 21:24) Upset Stomach tramadol Adverse Reaction (Verified 02/20/18 21:24) Upset Stomach Medications to take at Discharge Zolpidem Tartrate [Ambien] 10 mg PO QHS PRN PRN 01/08/15 Losartan/Hydrochlorothiazide [Losartan-Hctz 100-25 mg Tab] 1 ea PO DAILY 03/09/17 Albuterol IH (ProAir) [Proair Hfa] 1 - 2 puff INHALATION Q6H PRN PRN 02/20/18 Duloxetine HCl 60 mg PO DAILY 02/20/18 aspirin 81 mg tablet,delayed release 81 mg PO DAILY 03/16/18 carvedilol 25 mg tablet 50 mg PO BID 03/16/18 clopidogrel 75 mg tablet 75 mg PO DAILY 03/16/18 pravastatin 40 mg tablet 40 mg PO DAILY 03/16/18 isosorbide mononitrate ER 60 mg tablet,extended release 24 hr 60 mg PO QDAY #30 tab 04/05/18 Buspirone HCl 10 mg PO BID 04/09/18 Nitroglycerin [Nitrostat] 0.4 mg SUBLINGUAL Q5M PRN 04/09/18 Omeprazole 40 mg PO DAILY 04/09/18 Ranolazine [Ranexa] 500 mg PO BID #60 tab 04/10/18 The following prescriptions were given: Ranolazine [Ranexa] 500 mg PO BID #60 tab Primary Care Physician: Lucia Pandya PA [Primary Care Provider] - Please follow up with your Primary Care Physician in: 1 Week Test Results: Test results from this visit will be discussed in further detail at your follow-up appointment, if applicable. Please Follow Up With: Misha Juarez MD When: 1 Week Proposed Discharge Date: 04/10/18
--- NOTE | 2018-04-10 10:01 | DCINST_ITS ---
- Discharge Diagnoses Current Active Problems: Current Active and Chronic Problems (Last Updated 04/05/18 @ 13:01 by Nasima Orr ) Unstable angina pectoris (Acute) CAD (coronary artery disease) (Chronic) You will use the following diet at home:: Cardiac Discharge Activity: Return to Normal Activity, - - Follow post-op cath instructions. Call your doctor if your incision/area has: Continuous Slow Oozing, Sudden Increased Bleeding, Increased Pain/ Swelling, Increased Redness, Foul Smelling Discharge, Swelling at the incision site Call your doctor if you observe: Shortness of breath, Dizziness, Fainting spells , Chest pain Allergies/Adverse Reactions: Allergies acetaminophen [From Vicodin] Adverse Reaction (Verified 02/20/18 21:24) Upset Stomach cyclobenzaprine [From Flexeril] Adverse Reaction (Verified 02/20/18 21:24) Upset Stomach hydrocodone bitartrate [From Vicodin] Adverse Reaction (Verified 02/20/18 21:24) Upset Stomach tramadol Adverse Reaction (Verified 02/20/18 21:24) Upset Stomach Medications to take at Discharge Zolpidem Tartrate [Ambien] 10 mg PO QHS PRN PRN 01/08/15 Losartan/Hydrochlorothiazide [Losartan-Hctz 100-25 mg Tab] 1 ea PO DAILY Albuterol IH (ProAir) [Proair Hfa] 1 - 2 puff INHALATION Q6H PRN PRN 02/20/18 Duloxetine HCl 60 mg PO DAILY 02/20/18 aspirin 81 mg tablet,delayed release 81 mg PO DAILY 03/16/18 carvedilol 25 mg tablet 50 mg PO BID 03/16/18 clopidogrel 75 mg tablet 75 mg PO DAILY 03/16/18 pravastatin 40 mg tablet 40 mg PO DAILY 03/16/18 isosorbide mononitrate ER 60 mg tablet,extended release 24 hr 60 mg PO QDAY #30 tab 04/05/18 Buspirone HCl 10 mg PO BID 04/09/18 Nitroglycerin [Nitrostat] 0.4 mg SUBLINGUAL Q5M PRN 04/09/18 Omeprazole 40 mg PO DAILY 04/09/18 Ranolazine [Ranexa] 500 mg PO BID #60 tab 04/10/18 The following prescriptions were given: Ranolazine [Ranexa] 500 mg PO BID #60 tab Primary Care Physician: Lucia Pandya PA [Primary Care Provider] - Please follow up with your Primary Care Physician in: 1 Week Test Results: Test results from this visit will be discussed in further detail at your follow- up appointment, if applicable. Please Follow Up With: Misha Juarez MD When: 1 Week Proposed Discharge Date: 04/10/18
--- NOTE | 2018-04-10 10:01 | PCM.DC.SUM ---
<Aisha Vázquez - Last Filed: 04/10/18 10:12> Discharge Date and Diagnosis Date of Admission: 04/09/18 Date of Discharge: 04/10/18 - Primary Discharge Diagnosis Active and Suspected Problems (Last Updated 04/05/18 @ 13:01 by Nasima Orr) 1. Unstable angina pectoris 2. CAD-stable. - Secondary Discharge Diagnosis Chronic Problems (Last Updated 04/05/18 @ 13:01 by Nasima Orr) CAD (coronary artery disease) (Chronic) History of coronary artery stent placement (Chronic 03/06/18) PTCA/SHELBY of the of mid LCX with a 3.0 x 16 Promus Synergy and PTCA/SHELBY of the Proximal RCA recent occlusion with a 3.5 x 38 Promus Synergy 03/06/18 Atherosclerosis of coronary artery of [place] heart without angina pectoris (Chronic) PTCA/SHELBY of the of mid LCX with a 3.0 x 16 Promus Synergy and PTCA/SHELBY of the Proximal RCA recent occlusion with a 3.5 x 38 Promus Synergy 03/06/18 Nicotine dependence (Chronic) Hyperlipidemia (Chronic) Hypertension (Chronic) Hospital Course and Treatment Imaging Results: Diagnostic Data Chest X-Ray 04/09/18 14:25 IMPRESSION: Question minimal bibasilar infiltrates. Electronically Signed: Steven Stanton DO at 14:42 EDT Tel [phone], Service support , Dr. Figueroa- Cardiology Operations: None Procedures: Cardiac catheterization Summary of Care Provided: Patient is a 53-year-old male admitted 04/09/2018 due to chest pain, shortness of breath. His past medical history includes CAD status post PTCA, hypertension, hyperlipidemia, nicotine dependence, hiatal hernia, history of TIA, obesity, anxiety, obstructive sleep apnea. Patient is noncompliant with CPAP. He denies history of COPD although he does have an extensive smoking history and uses an inhaler as needed for wheezing. Current pack per day smoker and states he has no interest in quitting. 1. Unstable angina-recent abnormal stress echocardiogram 04/05/2018. Follows with Dr. Juarez. Dr. Kraft consulted during admission. Originally scheduled for outpatient cardiac catheterization 04/17/2018 however patient continued to have symptoms. Troponin negative. Patient underwent cardiac catheterization which demonstrated patent LCx and RCA stents. He continues to have RCA distal disease. Patient started on Ranexa 500 mg twice daily per cardiology. If he continues to have symptoms with the addition of Ranexa, he may require additional PCI to right PDA/posterior lateral branch of the mid right PDA area. Follow-up with Dr. Juarez in 1 week. 2. CAD-recent PTCA to mid LCx, SHELBY of the mid and proximal RCA March 06, 2018. Continue aspirin, statin, Plavix, Ranexa. 3. Hypertension-stable, continue home regimen including carvedilol, isosorbide, losartan/HCTZ. 4. Hyperlipidemia-continue statin. 5. Nicotine dependence-1 pack per day smoker. Encourage smoking cessation. Patient not interested in quitting smoking. 6. Hiatal hernia 7. History of TIA-continue aspirin, Plavix, statin. 8. Asthma, suspected COPD given extensive smoking history-recommend follow-up with pulmonary medicine for pulmonary function testing at discharge. Albuterol inhaler as needed for shortness of breath/wheezing. Recommend repeat pulmonary function testing as outpatient. 9. Obesity-encourage diet and lifestyle modifications. 10. Anxiety-continue home duloxetine regimen. 11. Obstructive sleep apnea-noncompliant with CPAP. General: Alert, Oriented x3, Cooperative, No apparent distress HEENT: Atraumatic, PERRLA, EOMI, Normocephalic Neck: Supple, No JVD, Negative Carotid Bruits Lungs: Diminished, Wheezes Cardiovascular: Regular rate, Regular Rhythm, Normal S1, Normal S2, No murmurs Abdomen: Bowel Sounds Present, Soft, Non Tender, Non-Distended, Hernia Extremities: No clubbing, No cyanosis, Capillary Refill Less than 3 Seconds, Edema - Nonpitting bilateral lower extremity Skin: No rashes, No breakdown Musculoskeletal: No Tenderness to Palpation of Joints or Extremities Neurological: Cranial nerves II-XII grossly intact, Neuro grossly intact Psych/Mental Status: Normal Affect, Appropriate Patient seen exam prior to discharge. Physical assessment as noted above. Patient denies further chest pain. Stable for discharge home with follow-up with primary care physician and cardiology. This patient was seen by ASHER Roblero under the supervision of Dr. Arias. Discharge Diet: Low fat/ Low Cholesterol Discharge Activity: Return to Normal Activity, - - Follow post-op cath instructions. Call your doctor if your incision/area has: Continuous Slow Oozing, Sudden Increased Bleeding, Increased Pain/ Swelling, Increased Redness, Foul Smelling Discharge, Swelling at the incision site Call your doctor if you observe: Shortness of breath, Dizziness, Fainting spells, Chest pain Home Medications: Medications to take at Discharge Zolpidem Tartrate [Ambien] 10 mg PO QHS PRN PRN 01/08/15 Losartan/Hydrochlorothiazide [Losartan-Hctz 100-25 mg Tab] 1 ea PO DAILY 03/09/17 Albuterol IH (ProAir) [Proair Hfa] 1 - 2 puff INHALATION Q6H PRN PRN 02/20/18 Duloxetine HCl 60 mg PO DAILY 02/20/18 aspirin 81 mg tablet,delayed release 81 mg PO DAILY 03/16/18 carvedilol 25 mg tablet 50 mg PO BID 03/16/18 clopidogrel 75 mg tablet 75 mg PO DAILY 03/16/18 pravastatin 40 mg tablet 40 mg PO DAILY 03/16/18 isosorbide mononitrate ER 60 mg tablet,extended release 24 hr 60 mg PO QDAY #30 tab 04/05/18 Buspirone HCl 10 mg PO BID 04/09/18 Nitroglycerin [Nitrostat] 0.4 mg SUBLINGUAL Q5M PRN 04/09/18 Omeprazole 40 mg PO DAILY 04/09/18 Ranolazine [Ranexa] 500 mg PO BID #60 tab 04/10/18 Following Prescrptions Were Given to Patient: Ranolazine [Ranexa] 500 mg PO BID #60 tab Primary Care Physician: Lucia Pandya PA [Primary Care Provider] - Please follow up with your Primary Care Physician in: 1 Week Please Follow Up With: Misha Juarez MD When: 1 Week Disposition: Home Minutes spent on discharge:: 35 Patient Condition:: Stable Medical Necessity - Tobacco Use Smoking Status: Current every day smoker Tobacco Use: Cigarettes Meaningful Use Info Meaningful Use Diagnoses (Choose all that apply): None applicable <AdelinaparvezKiki Ilda - Last Filed: 04/10/18 14:36> Discharge Date and Diagnosis - Secondary Discharge Diagnosis Chronic Problems (Last Updated 04/05/18 @ 13:01 by Nasima Orr) CAD (coronary artery disease) (Chronic) History of coronary artery stent placement (Chronic 03/06/18) PTCA/SHELBY of the of mid LCX with a 3.0 x 16 Promus Synergy and PTCA/SHELBY of the Proximal RCA recent occlusion with a 3.5 x 38 Promus Synergy 03/06/18 Atherosclerosis of coronary artery of [place] heart without angina pectoris (Chronic) PTCA/SHELBY of the of mid LCX with a 3.0 x 16 Promus Synergy and PTCA/SHELBY of the Proximal RCA recent occlusion with a 3.5 x 38 Promus Synergy 03/06/18 Nicotine dependence (Chronic) Hyperlipidemia (Chronic) Hypertension (Chronic) Hospital Course and Treatment Summary of Care Provided: Patient seen by Aisha STERLING under my supervision. Agree with above note and assessment and plan. Patient is a 53-year-old male was admitted on 04/09/2018 with complaints of chest pain and shortness of breath. He had extensive cardiac history including CAD status post cardiac cath, hypertension, hyperlipidemia, history of TIA, nicotine dependence and hiatal hernia. He is status post a recent stress echocardiogram which was considered abnormal. He had been evaluated by Dr. Juarez for the symptoms above and was scheduled to have a repeat diagnostic cardiac cath and possible PCI in the near future. After presenting to the ED he was evaluated by cardiology. Initial troponin was negative EKG showed sinus rhythm and nonspecific T-wave changes. Decision was made for patient to have urgent cardiac cath today. Cardiac cath showed that his left circumflex and RCA stents were patent and he continued to have an element of RCA distal disease involving the bifurcation of the right PDA right posterior lateral branch and the right PDA mid area. Plan was continue medical management to allow the stents to mature of the patient to follow-up later. No immediate PCI was considered to be warranted by cardiology and he is to have further follow-up to determine further management. Patient was discharged home on 04/10/18 after cardiac cath. He was discharged on aspirin, plavix, statin and ranexa. He is to have follow up with his PCP and cardiology. [] Code Visit Inpatient E&M: 05459 Disch Hosp
--- NOTE | 2018-04-10 10:12 | DS.PCM_ITS ---
<Aisha Vázquez - Last Filed: 04/10/18 10:12> Discharge Date and Diagnosis Date of Admission: 04/09/18 Date of Discharge: 04/10/18 - Primary Discharge Diagnosis Active and Suspected Problems (Last Updated 04/05/18 @ 13:01 by Nasima Orr) 1. Unstable angina pectoris 2. CAD-stable. - Secondary Discharge Diagnosis Chronic Problems (Last Updated 04/05/18 @ 13:01 by Nasima Orr) CAD (coronary artery disease) (Chronic) History of coronary artery stent placement (Chronic 03/06/18) PTCA/SHELBY of the of mid LCX with a 3.0 x 16 Promus Synergy and PTCA/SHELBY of the Proximal RCA recent occlusion with a 3.5 x 38 Promus Synergy 03/06/18 Atherosclerosis of coronary artery of [place] heart without angina pectoris ( Chronic) PTCA/SHELBY of the of mid LCX with a 3.0 x 16 Promus Synergy and PTCA/SHELBY of the Proximal RCA recent occlusion with a 3.5 x 38 Promus Synergy 03/06/18 Nicotine dependence (Chronic) Hyperlipidemia (Chronic) Hypertension (Chronic) Hospital Course and Treatment Imaging Results: Diagnostic Data Chest X-Ray 04/09/18 14:25 IMPRESSION: Question minimal bibasilar infiltrates. Electronically Signed: Steven Stanton DO at 14:42 EDT Tel [phone], Service support , Dr. Figueroa- Cardiology Operations: None Procedures: Cardiac catheterization Summary of Care Provided: Patient is a 53-year-old male admitted 04/09/2018 due to chest pain, shortness of breath. His past medical history includes CAD status post PTCA, hypertension , hyperlipidemia, nicotine dependence, hiatal hernia, history of TIA, obesity, anxiety, obstructive sleep apnea. Patient is noncompliant with CPAP. He denies history of COPD although he does have an extensive smoking history and uses an inhaler as needed for wheezing. Current pack per day smoker and states he has no interest in quitting. 1. Unstable angina-recent abnormal stress echocardiogram 04/05/2018. Follows with Dr. Juarez. Dr. Kraft consulted during admission. Originally scheduled for outpatient cardiac catheterization 04/17/2018 however patient continued to have symptoms. Troponin negative. Patient underwent cardiac catheterization which demonstrated patent LCx and RCA stents. He continues to have RCA distal disease. Patient started on Ranexa 500 mg twice daily per cardiology. If he continues to have symptoms with the addition of Ranexa, he may require additional PCI to right PDA/posterior lateral branch of the mid right PDA area. Follow-up with Dr. Juarez in 1 week. 2. CAD-recent PTCA to mid LCx, SHELBY of the mid and proximal RCA March 06, 2018. Continue aspirin, statin, Plavix, Ranexa. 3. Hypertension-stable, continue home regimen including carvedilol, isosorbide , losartan/HCTZ. 4. Hyperlipidemia-continue statin. 5. Nicotine dependence-1 pack per day smoker. Encourage smoking cessation. Patient not interested in quitting smoking. 6. Hiatal hernia 7. History of TIA-continue aspirin, Plavix, statin. 8. Asthma, suspected COPD given extensive smoking history-recommend follow-up with pulmonary medicine for pulmonary function testing at discharge. Albuterol inhaler as needed for shortness of breath/wheezing. Recommend repeat pulmonary function testing as outpatient. 9. Obesity-encourage diet and lifestyle modifications. 10. Anxiety-continue home duloxetine regimen. 11. Obstructive sleep apnea-noncompliant with CPAP. General: Alert, Oriented x3, Cooperative, No apparent distress HEENT: Atraumatic, PERRLA, EOMI, Normocephalic Neck: Supple, No JVD, Negative Carotid Bruits Lungs: Diminished, Wheezes Cardiovascular: Regular rate, Regular Rhythm, Normal S1, Normal S2, No murmurs Abdomen: Bowel Sounds Present, Soft, Non Tender, Non-Distended, Hernia Extremities: No clubbing, No cyanosis, Capillary Refill Less than 3 Seconds, Edema - Nonpitting bilateral lower extremity Skin: No rashes, No breakdown Musculoskeletal: No Tenderness to Palpation of Joints or Extremities Neurological: Cranial nerves II-XII grossly intact, Neuro grossly intact Psych/Mental Status: Normal Affect, Appropriate Patient seen exam prior to discharge. Physical assessment as noted above. Patient denies further chest pain. Stable for discharge home with follow-up with primary care physician and cardiology. This patient was seen by ASHER Roblero under the supervision of Dr. Arias. Discharge Diet: Low fat/ Low Cholesterol Discharge Activity: Return to Normal Activity, - - Follow post-op cath instructions. Call your doctor if your incision/area has: Continuous Slow Oozing, Sudden Increased Bleeding, Increased Pain/ Swelling, Increased Redness, Foul Smelling Discharge, Swelling at the incision site Call your doctor if you observe: Shortness of breath, Dizziness, Fainting spells , Chest pain Home Medications: Medications to take at Discharge Zolpidem Tartrate [Ambien] 10 mg PO QHS PRN PRN 01/08/15 Losartan/Hydrochlorothiazide [Losartan-Hctz 100-25 mg Tab] 1 ea PO DAILY Albuterol IH (ProAir) [Proair Hfa] 1 - 2 puff INHALATION Q6H PRN PRN 02/20/18 Duloxetine HCl 60 mg PO DAILY 02/20/18 aspirin 81 mg tablet,delayed release 81 mg PO DAILY 03/16/18 carvedilol 25 mg tablet 50 mg PO BID 03/16/18 clopidogrel 75 mg tablet 75 mg PO DAILY 03/16/18 pravastatin 40 mg tablet 40 mg PO DAILY 03/16/18 isosorbide mononitrate ER 60 mg tablet,extended release 24 hr 60 mg PO QDAY #30 tab 04/05/18 Buspirone HCl 10 mg PO BID 04/09/18 Nitroglycerin [Nitrostat] 0.4 mg SUBLINGUAL Q5M PRN 04/09/18 Omeprazole 40 mg PO DAILY 04/09/18 Ranolazine [Ranexa] 500 mg PO BID #60 tab 04/10/18 Following Prescrptions Were Given to Patient: Ranolazine [Ranexa] 500 mg PO BID #60 tab Primary Care Physician: Lucia Pandya PA [Primary Care Provider] - Please follow up with your Primary Care Physician in: 1 Week Please Follow Up With: Misha Juarez MD When: 1 Week Disposition: Home Minutes spent on discharge:: 35 Patient Condition:: Stable Medical Necessity - Tobacco Use Smoking Status: Current every day smoker Tobacco Use: Cigarettes Meaningful Use Info Meaningful Use Diagnoses (Choose all that apply): None applicable <AdelinaparvezKiki Ilda - Last Filed: 04/10/18 14:36> Discharge Date and Diagnosis - Secondary Discharge Diagnosis Chronic Problems (Last Updated 04/05/18 @ 13:01 by Nasima Orr) CAD (coronary artery disease) (Chronic) History of coronary artery stent placement (Chronic 03/06/18) PTCA/SHELBY of the of mid LCX with a 3.0 x 16 Promus Synergy and PTCA/SHELBY of the Proximal RCA recent occlusion with a 3.5 x 38 Promus Synergy 03/06/18 Atherosclerosis of coronary artery of [place] heart without angina pectoris ( Chronic) PTCA/SHELBY of the of mid LCX with a 3.0 x 16 Promus Synergy and PTCA/SHELBY of the Proximal RCA recent occlusion with a 3.5 x 38 Promus Synergy 03/06/18 Nicotine dependence (Chronic) Hyperlipidemia (Chronic) Hypertension (Chronic) Hospital Course and Treatment Summary of Care Provided: Patient seen by Aisha STERLING under my supervision. Agree with above note and assessment and plan. Patient is a 53-year-old male was admitted on 04/09/2018 with complaints of chest pain and shortness of breath. He had extensive cardiac history including CAD status post cardiac cath, hypertension, hyperlipidemia, history of TIA, nicotine dependence and hiatal hernia. He is status post a recent stress echocardiogram which was considered abnormal. He had been evaluated by Dr. Juarez for the symptoms above and was scheduled to have a repeat diagnostic cardiac cath and possible PCI in the near future. After presenting to the ED he was evaluated by cardiology. Initial troponin was negative EKG showed sinus rhythm and nonspecific T-wave changes. Decision was made for patient to have urgent cardiac cath today. Cardiac cath showed that his left circumflex and RCA stents were patent and he continued to have an element of RCA distal disease involving the bifurcation of the right PDA right posterior lateral branch and the right PDA mid area. Plan was continue medical management to allow the stents to mature of the patient to follow-up later. No immediate PCI was considered to be warranted by cardiology and he is to have further follow- up to determine further management. Patient was discharged home on 04/10/18 after cardiac cath. He was discharged on aspirin, plavix, statin and ranexa. He is to have follow up with his PCP and cardiology. [] Code Visit Inpatient E&M: 85434 Disch Hosp
[2018-04-10] MEDS: Ranolazine 500 MG Tablet PO (10:19)
== END 2018-04-10 09:59 | disposition home or self-care (01) ==
LOC: ED 14:14 → PCU 16:07
PROVIDERS: Nurse Practitioner Family; Admitting Provider Internal Medicine; Emergency Provider Emergency Medicine; Family Provider Physician Assistant; PCP Physician Assistant; Visit Provider Student in an Organized Health Care Education/Training Program
DX: I25.110 Atherosclerotic heart disease of native coronary artery with unstable angina pectoris (principal); I10 Essential (primary) hypertension; E78.5 Hyperlipidemia, unspecified; K44.9 Diaphragmatic hernia without obstruction or gangrene; E66.9 Obesity, unspecified; F41.9 Anxiety disorder, unspecified; G47.33 Obstructive sleep apnea (adult) (pediatric); F17.210 Nicotine dependence, cigarettes, uncomplicated; R94.39 Abnormal result of other cardiovascular function study; D47.2 Monoclonal gammopathy; Z95.5 Presence of coronary angioplasty implant and graft; Z86.73 Personal history of transient ischemic attack (TIA), and cerebral infarction without residual deficits; Z68.38 Body mass index [BMI] 38.0-38.9, adult; Z71.3 Dietary counseling and surveillance; Z91.19 Patient's noncompliance with other medical treatment and regimen; Z79.899 Other long term (current) drug therapy; Z79.02 Long term (current) use of antithrombotics/antiplatelets; Z79.82 Long term (current) use of aspirin
CPT/HCPCS: 36415; 71046; 80048; 80061; 81001; 84484; 85025; 85027; 85610; 85730; 93005; 93458; 94640; 96360; 96361; 99152; 99153; 99218; 99283; J7030; Q9967; A4216; C1769; C1894; G0378

== ENCOUNTER 2018-04-17 09:43 | Day surgery (SDC) | payer BC, SELFPAY ==
[2018-04-17] VITALS (19 sets, daily range): BP systolic 131–181; BP diastolic 72–107; PULSE 58–85; RESP 16–20; TEMP 36.5–36.6; O2SAT 93–99; BMI 38.0
[2018-04-17 10:02] LABS: Hematocrit 45.3 % (40-54); Hemoglobin 15.1 g/dl (13.0-16.5); Mean Corp Hgb Conc 33.3 g/gl (32-36); Mean Corpuscular Hgb 32.8 pg (27.0-32.0); Mean Corpuscular Volume 98.5 fL (80-94); Mean Platelet Vol. 8.4 fl (6.2-12.0); Platelet Count 222 K/mm3 (150-450); RBC Distribution Width CV 15.2 % (11.6-14.6); White Blood Count 6.5 K/mm3 (4.4-11.0)
[2018-04-17 10:15] LABS: Scan Indicated on CBC? Y/N NO
[2018-04-17 10:17] LABS: International Normalized Ratio 0.9; Partial Thromboplast Time 28.8 Seconds (24.1-36.2); Prothrombin Time (Protime)PT. 12.5 SECONDS (11.7-14.9)
[2018-04-17 10:19] LABS: Anion Gap 7 (5-15); BUN 21 mg/dL (7-18); BUN/Creat Ratio 19.6 RATIO (10-20); Calcium,Total 9.3 mg/dL (8.5-10.1); Chloride 103 mmol/L (98-107); Creatinine, Serum 1.07 mg/dL (0.70-1.30); EST Glomerular Filtration Rate 77 mL/min (>60); Est Glom Filt Rate - Afr Amer 93 mL/min (>60); Glucose 98 mg/dL (74-106); Potassium 4.1 mmol/L (3.5-5.1); Sodium Level 142 mmol/L (136-145)
[2018-04-17 14:05] LABS: ACT Activated Clotting Time 208 sec (74-137)
--- NOTE | 2018-04-17 14:23 | CL.I_ITS ---
Patient Name: TWIN CHAMBERS Study Date: 04/17/2018 Performing: Misha Juarez MD Ht: inches cm : 1965 Wt: 245 lbs 111 kg Age: 53 Gender: male BSA: PROCEDURE(S) PERFORMED [id number] W OR WO PTCA, SINGLE CORONARY ARTERY [id number] W OR WO PTCA, EACH ADD'L ARTERY, SAME MAJOR CLINICAL PROFILE AND CO-MORBIDITIES Indications: ACS > 24 hrs, Worsening Angina, Stable Known CAD Heart Failure: None Stress/Imaging Stress Echocardiogram: Yes Result: Positive Intermediate Risk Stress Echocardiogra m: Positive Intermediate Risk Angina Classification Anginal Classification w/in 2 Weeks: CCS III CAD Presentations: Unstable angina. Comorbidities/Risk Factors: Current/Recent Smoker (< 1year) Hypertension Dyslipidemia Prior PCI CONCLUSIONS Successful PTCA/SHELBY of the mid PDA with a 2.25 x 20 Promus Synergy; 85%-->0%, no dissection. Successful PTCA/SHELBY of the proximal RPL branch with a 3.5 x 12 Promus Synergy at 10 lauren; 75%-->0%, no dissection. Successful POBA of ostial PDA, no stent attempted. 75%-->40%, no dissection. RECOMMENDATIONS Highly recommend quitting all tobacco products Follow up with primary modeling agency manager Risk factor modification ASA Indefinitley Plavix for at least 12 months Routine post interventional care Refer for Outpatient Cardiac Rehab Manual sheath removal per protocol Follow up with Dr. Juarez Successful Mynx closure. If pt needs any future PCI, will need 55 cm long sheath for aorto-iliac tortuosity. DESCRIPTION OF PROCEDURE The patient arrived to the procedure lab. The risks and benefits of the procedure as well as a full d escription of our services here and current unavailability of surgical backup were fully explained to the patient and/or their significant other prior to the catheterization. The Timeout was completed, verifying the correct patient and procedure. The patient's procedural site was prepped and draped in the usual fashion. Local anesthetic was given subcutaneously to right groin region with Lidocaine 2%. Using a modified Seldinger technique, arterial access was obtained via the right femoral artery, a 6 Fr sheath was inserted.. HS2 Guide catheter was inserted. Unable to engage, removed Arterial sheath was exchanged from a short 11 cm 6 fr sheath to a long 55 cc 6 Fr Sheath. HS2 Guide catheter was reinserted and engaged into th e RCA. BM [place] Guide wire was advanced to the Right PDA. Angiogram performed to RCA. BMW Univer robby Guide wire was inserted as a fabiana wire into the PL branch RCA 2.0 x 12 Emerge Balloon catheter w as inserted. Balloon catheter was advanced across lesion in the posterior descending, mid. Angiogram performed pre balloon dilatation. PTCA balloon inflated at 8 atms for 11 secs. PTCA balloon inflated at 8 atms for 7 secs. Angiogram performed post balloon dilatation. Balloon catheter was advanced acro ss lesion in the posterior descending, ostial. PTCA balloon inflated at 8 atms for 20 secs. Angiogram performed post balloon dilatation. 2.25 x 20 Synergy Drug Eluting stent was inserted. 2.5 x 12 Emerg e Balloon catheter was inserted. Balloon catheter was advanced across lesion in the posterior descend ing, ostial. PTCA balloon inflated at 8 atms for 18 secs. PTCA balloon inflated at 8 atms for 15 secs . Drug Eluting stent was reinserted. Drug Eluting stent was advanced across the lesion in the posteri or descending, mid. 2.5 x 12 emerge Balloon catheter was inserted. Balloon catheter was advanced acro ss lesion in the right coronary, Proximal PL Branch. PTCA balloon inflated at 12 atms for 10 secs. An giogram performed post balloon dilatation. 3.5 x 16 Synergy Drug Eluting stent was inserted. Angiogra m performed pre stent deployment. Drug Eluting stent was advanced across the lesion in the right marely nary, proximal PL Branch. Angiogram performed post stent deployment. 2.5 x 12 Emerge Balloon catheter was reinserted Balloon catheter was advanced across lesion in the posterior descending, ostial. 2.0 x 12 emerge Balloon catheter was inserted. Balloon catheter was advanced across lesion in the posteri or descending, ostial. Angiogram performed post stent deployment. The arterial sheath was pulled and a Mynx closure device was deployed for hemostasis INTERVENTION INFORMATION LESION SITE: RT PDA (Mid) Lesion Complexity: High/C, lesion at bifurcation: No, thrombus present: No, lesion length: 20 mm, cul prit lesion: Yes Pre Stenosis: 85 % Pre intervention RIAN flow: 3 PROCEDURE: Drug Eluting Stent with pre dilatation. Post Stenosis: 0 % Post intervention RIAN flow: 3 Lesion Devices: Marr .014 BMW [place] Straight 190cm Lucien Sci EMERGE MR 2.00x12 BALLOON Medtronic 6 Fr HSII 100cm Guide Catheter Marr .014 BMW [place] Straight 190cm Lucien Sci Synergy MR SHELBY 2.25x20 Lucien Sci EMERGE MR 2.50x12 BALLOON LESION SITE: RT PDA (Ostial) Lesion Complexity: High/C, lesion at bifurcation: Yes, thrombus present: No, lesion length: 8 mm, cul prit lesion: No Pre Stenosis: 75 % Pre intervention RIAN flow: 3 PROCEDURE: Balloon Angioplasty Post Stenosis: 40 % Post intervention RIAN flow: 3 Lesion Devices: Marr .014 BMW [place] Straight 190cm Medtronic 6 Fr HSII 100cm Guide Catheter Marr .014 BMW [place] Straight 190cm Lucien Sci EMERGE MR 2.50x12 BALLOON LESION SITE: RPL (1st) Lesion Complexity: Non-High/Non-C, lesion at bifurcation: Yes, thrombus present: No Pre Stenosis: 75 % Pre intervention RIAN flow: 3 PROCEDURE: Drug Eluting Stent with pre dilatation. 0 % Post intervention RIAN flow: 3 Lesion Devices: Marr .014 BMW [place] Straight 190cm Medtronic 6 Fr HSII 100cm Guide Catheter Marr .014 BMW [place] Straight 190cm Lucien Sci EMERGE MR 2.50x12 BALLOON Lucien Sci Synergy MR SHELBY 3.50x16 COMPLICATIONS No Complications PROCEDURE MEDICATIONS Versed 1 mg IV Oxygen: 2 L/min via nasal cannula Baby Aspirin (81mg) 1 Tabs PO @ 04/17/2018 10:05:28 Heparin 5000 unit(s) IV 04/17/2018 12:44:55 Heparin 4000 unit(s) IV 04/17/2018 13:07:58 Nitro 200 mcg IC 04/17/2018 12:49:44 Nitro 200 mcg IC 04/17/2018 12:49:44 Nitro 200 mcg IC 04/17/2018 13:02:16 Nitro 200 mcg IC 04/17/2018 13:14:14 Plavix 75 mg PO 04/17/2018 10:05:37 IV Bolus: 400 cc .9 NaCl ml total 04/17/2018 12:44:00 SUMMARY OF HEMODYNAMIC DATA Time AIR REST AO 153/86 (114) SA 12:48:52 Signed By Misha Juarez MD On 04/17/2018 2:23:01 PM Misha Juarez MD
[2018-04-17] MEDS: 0.9% Normal Saline 1,000 ML 150 ML IV (16:29)
[2018-04-17] MEDS: Carvedilol 25 MG Tablet 50 MG PO (20:23)
--- NOTE | 2018-04-17 21:00 | NURSING ---
Patient's nicotrol inhaler locked in nursing med room. Patient educated on the need to monitor what medications he is taking, offered to get nicotine patch ordered, patient declined.
[2018-04-17] MEDS: busPIRone 5 MG Tablet 10 MG PO (22:12)
[2018-04-17] MEDS: Acetaminophen 325 MG Tablet 650 MG PO (22:12)
[2018-04-17] MEDS: Zolpidem Tartrate 5 MG Tablet PO (22:13)
[2018-04-17] MEDS: amLODIPine 5 MG Tablet PO (22:25)
[2018-04-18] VITALS (11 sets, daily range): BP systolic 126–174; BP diastolic 75–96; PULSE 62–82; RESP 15–19; TEMP 36.6–36.9; O2SAT 95–98
[2018-04-18 00:01] LABS: M R Staph aureus DNA By PCR Negative (Negative); Probe Check PASS; Specimen Processing Control PASS
[2018-04-18 04:20] LABS: Hematocrit 41.1 % (40-54); Hemoglobin 13.5 g/dl (13.0-16.5); Mean Corp Hgb Conc 32.8 g/gl (32-36); Mean Corpuscular Hgb 32.7 pg (27.0-32.0); Mean Corpuscular Volume 99.5 fL (80-94); Mean Platelet Vol. 8.5 fl (6.2-12.0); Platelet Count 201 K/mm3 (150-450); RBC Distribution Width SD 53.6 fl (35.1-43.9); Red Blood Count 4.13 M/mm3 (4.6-6.2); White Blood Count 6.5 K/mm3 (4.4-11.0)
[2018-04-18 04:21] LABS: Scan Indicated on CBC? Y/N NO
[2018-04-18 04:58] LABS: ALB/GLOB Ratio 0.9 RATIO (0.9-2.4); AST(SGOT) 19 U/L (15-37); Alanine Aminotransfer ALT/SGPT 22 U/L (16-61); Albumin, Serum 3.3 g/dL (3.2-5.0); Alkaline Phosphatase 60 U/L (45-117); Anion Gap 5 (5-15); BUN 18 mg/dL (7-18); BUN/Creat Ratio 17.5 RATIO (10-20); Calcium,Total 8.6 mg/dL (8.5-10.1); Chloride 105 mmol/L (98-107); Cholesterol 230 mg/dL (200); Creatinine, Serum 1.03 mg/dL (0.70-1.30); EST Glomerular Filtration Rate 80 mL/min (>60); Est Glom Filt Rate - Afr Amer 97 mL/min (>60); Estimated Creatinine Clearance 77.54 ml/min; Globulin 3.7 g/dL (2.2-4.2); Glucose 104 mg/dL (74-106); High Density Lipoprotein 33 mg/dL; Potassium 4.5 mmol/L (3.5-5.1); Sodium Level 141 mmol/L (136-145); Triglycerides 444 mg/dL
--- NOTE | 2018-04-18 06:53 | PCM.DC.CCA ---
Discharge Diet: Low fat/ Low Cholesterol Discharge Activity: Return to Normal Activity May shower in (days): 1 May resume sexual activity in: 1-2 weeks Lifting Restrictions: Do not lift anything greater than 10 pounds for 3 days Call your doctor if your incision/area has: Continuous Slow Oozing, Sudden Increased Bleeding, Increased Pain/ Swelling, Increased Redness, Foul Smelling Discharge, Swelling at the incision site Call your doctor if you observe: Fever of 101 or Higher, Shortness of breath, Chest pain Remove Dressing in (days):: 1 Cleanse incision/area with: Soap & Water Additional Instructions: You will remain on Plavix for at least one year. If anyone asks you to stop this medication, please contact the [facility] first. You are scheduled to see Cachorro Martin Nurse Practitioner, on 05/09/2018 at 9:30 Am for further evaluation. If this date and time is not suitable for you, please call the [facility] office to reschedule. If you have any questions or concerns, please call the [facility] office at [phone]. Allergies/Adverse Reactions: Allergies acetaminophen [From Vicodin] Adverse Reaction (Verified 04/16/18 09:17) Upset Stomach cyclobenzaprine [From Flexeril] Adverse Reaction (Verified 04/16/18 09:17) Upset Stomach hydrocodone bitartrate [From Vicodin] Adverse Reaction (Verified 04/16/18 09:17) Upset Stomach tramadol Adverse Reaction (Verified 04/16/18 09:17) Upset Stomach Medications to take at Discharge Zolpidem Tartrate [Ambien] 10 mg PO QHS PRN PRN 01/08/15 Losartan/Hydrochlorothiazide [Losartan-Hctz 100-25 mg Tab] 1 ea PO DAILY 03/09/17 Albuterol IH (ProAir) [Proair Hfa] 1 - 2 puff INHALATION Q6H PRN PRN 02/20/18 Duloxetine HCl 60 mg PO DAILY 02/20/18 aspirin 81 mg tablet,delayed release 81 mg PO DAILY 03/16/18 carvedilol 25 mg tablet 50 mg PO BID 03/16/18 clopidogrel 75 mg tablet 75 mg PO DAILY 03/16/18 pravastatin 40 mg tablet 40 mg PO DAILY 03/16/18 isosorbide mononitrate ER 60 mg tablet,extended release 24 hr 60 mg PO QDAY #30 tab 04/05/18 Buspirone HCl 10 mg PO BID 04/09/18 Nitroglycerin [Nitrostat] 0.4 mg SUBLINGUAL Q5M PRN 04/09/18 Omeprazole 40 mg PO DAILY 04/09/18 Primary Care Physician: Lucia Pandya PA [Primary Care Provider] - Test Results: Test results from this visit will be discussed in further detail at your follow-up appointment, if applicable. Please Follow Up With: Cachorro Domingo, Nurse Practitioner When: 05/09/2018 @ 9:30 AM Proposed Discharge Date: 04/18/18 Cardiac Rehabilitation Info Cardiac Rehabilitation Program Information: Cardiac Rehabilitation is important for patients like you who are recovering from a heart problem. Cardiac rehabilitation programs are recognized as integral to the continued care of the patient with coronary heart disease. The cardiac rehabilitation program is designed to optimize a patient's physical, psychological, and social functioning. Health care clinician work in cardiac rehabilitation programs and assist you with getting the treatments you need to get stronger and healthier - like exercise, healthy eating habits, and medications. Cardiac rehabilitation has been show to help people with heart problems live longer and have better life enjoyment than people who do not go to cardiac rehabilitation. Please contact the Cardiac Rehabilitation Program at [facility] at in two weeks if you have not heard from them.
--- NOTE | 2018-04-18 06:57 | DCINST_ITS ---
Discharge Diet: Low fat/ Low Cholesterol Discharge Activity: Return to Normal Activity May shower in (days): 1 May resume sexual activity in: 1-2 weeks Lifting Restrictions: Do not lift anything greater than 10 pounds for 3 days Call your doctor if your incision/area has: Continuous Slow Oozing, Sudden Increased Bleeding, Increased Pain/ Swelling, Increased Redness, Foul Smelling Discharge, Swelling at the incision site Call your doctor if you observe: Fever of 101 or Higher, Shortness of breath, Chest pain Remove Dressing in (days):: 1 Cleanse incision/area with: Soap & Water Additional Instructions: You will remain on Plavix for at least one year. If anyone asks you to stop this medication, please contact the [facility] first. You are scheduled to see Cachorro Martin Nurse Practitioner, on 05/09/2018 at 9:30 Am for further evaluation. If this date and time is not suitable for you, please call the [facility] office to reschedule. If you have any questions or concerns, please call the [facility] office at [phone]. Allergies/Adverse Reactions: Allergies acetaminophen [From Vicodin] Adverse Reaction (Verified 04/16/18 09:17) Upset Stomach cyclobenzaprine [From Flexeril] Adverse Reaction (Verified 04/16/18 09:17) Upset Stomach hydrocodone bitartrate [From Vicodin] Adverse Reaction (Verified 04/16/18 09:17) Upset Stomach tramadol Adverse Reaction (Verified 04/16/18 09:17) Upset Stomach Medications to take at Discharge Zolpidem Tartrate [Ambien] 10 mg PO QHS PRN PRN 01/08/15 Losartan/Hydrochlorothiazide [Losartan-Hctz 100-25 mg Tab] 1 ea PO DAILY Albuterol IH (ProAir) [Proair Hfa] 1 - 2 puff INHALATION Q6H PRN PRN 02/20/18 Duloxetine HCl 60 mg PO DAILY 02/20/18 aspirin 81 mg tablet,delayed release 81 mg PO DAILY 03/16/18 carvedilol 25 mg tablet 50 mg PO BID 03/16/18 clopidogrel 75 mg tablet 75 mg PO DAILY 03/16/18 pravastatin 40 mg tablet 40 mg PO DAILY 03/16/18 isosorbide mononitrate ER 60 mg tablet,extended release 24 hr 60 mg PO QDAY #30 tab 04/05/18 Buspirone HCl 10 mg PO BID 04/09/18 Nitroglycerin [Nitrostat] 0.4 mg SUBLINGUAL Q5M PRN 04/09/18 Omeprazole 40 mg PO DAILY 04/09/18 Primary Care Physician: Lucia Pandya PA [Primary Care Provider] - Test Results: Test results from this visit will be discussed in further detail at your follow- up appointment, if applicable. Please Follow Up With: Cachorro Domingo, Nurse Practitioner When: 05/09/2018 @ 9:30 AM Proposed Discharge Date: 04/18/18 Cardiac Rehabilitation Info Cardiac Rehabilitation Program Information: Cardiac Rehabilitation is important for patients like you who are recovering from a heart problem. Cardiac rehabilitation programs are recognized as integral to the continued care of the patient with coronary heart disease. The cardiac rehabilitation program is designed to optimize a patient's physical, psychological, and social functioning. Health acute care clinical nurse specialist work in cardiac rehabilitation programs and assist you with getting the treatments you need to get stronger and healthier - like exercise, healthy eating habits, and medications. Cardiac rehabilitation has been show to help people with heart problems live longer and have better life enjoyment than people who do not go to cardiac rehabilitation. Please contact the Cardiac Rehabilitation Program at [facility] at in two weeks if you have not heard from them.
[2018-04-18] MEDS: Aspirin E.C. 81 MG Tablet PO (08:24)
[2018-04-18] MEDS: hydroCHLOROthiazide 25 MG Tablet PO (08:24)
[2018-04-18] MEDS: busPIRone 5 MG Tablet 10 MG PO (08:24)
[2018-04-18] MEDS: Carvedilol 25 MG Tablet 50 MG PO (08:24)
[2018-04-18] MEDS: Pravastatin 40 MG Tablet PO (08:25)
[2018-04-18] MEDS: Isosorbide Mononitrate 60 MG Tablet PO (08:25)
[2018-04-18] MEDS: DULoxetine Hcl 60 MG Capsule PO (08:25)
[2018-04-18] MEDS: Clopidogrel Bisulfate 75 MG Tablet PO (08:25)
[2018-04-18] MEDS: Losartan Potassium 100 MG Tablet PO (08:25)
[2018-04-18] MEDS: Pantoprazole Sodium 40 MG Tablet PO (08:30)
--- NOTE | 2018-04-18 08:42 | PCM.PN.CARD ---
Subjectve: Patient doing very well this morning. Somewhat hypertensive but has not yet received his antihypertensive medications. He reports he feels much better since his angioplasty and stenting. No chest pain or anginal symptoms. Right groin is clean/dry/intact without evidence of thrills, bruits or hematoma. 2+ DP PT pulses bilaterally. Telemetry negative. EKG shows normal sinus rhythm, no acute changes. Hemoglobin and creatinine within nominal limits. Objective: Vital Signs Temp Pulse Resp BP Pulse Ox 97.9 F 82 18 140/92 H 96 04/18/18 00:00 04/18/18 07:39 04/18/18 07:39 04/18/18 07:30 04/18/18 07:39 Oxygen Flow Rate (L/min) 2 Oxygen Delivery Method Room Air Weight: 245 lb 2.464 oz Body Mass Index (BMI) 38.0 Intake and Output for Last 24 Hours 04/16/18 04/17/18 04/18/18 23:59 23:59 23:59 Intake Total 1749 / 1749 90 / 90 Output Total 200 / 200 Balance 1549 / 1549 90 / 90 General: Awake, Alert, Oriented x 3 HEENT: PERRL, EOMI, Sclera Non Icteric Neck: Supple, Good ROM, No Lymph Node Enlargement Lungs: Clear to auscultation Cardiovascular: Regular Rhythm, Normal S1, Normal S2, No Murmurs, No Rubs, No Gallops Vascular: No Carotid Bruits, Normal Femoral Pulses, Normal Radial Pulses, Normal Dorsalis Pedal Pulse, Normal Posterior Tibial Pulses Abdomen: Bowel Sounds Present, Soft, Non Tender, No HSM, No Organomegaly Extremities: No Cyanosis, No Clubbing, No edema Neurological: No Focal Motor or Sensory Deficit 04/17/18 09:47: WBC 6.5, RBC 4.60, Hgb 15.1, Hct 45.3, MCV 98.5 H, MCH 32.8 H, MCHC 33.3, RDW 15.2 H, RDW Differential 54.0 H, Plt Count 222, MPV 8.4 04/17/18 09:47: PT 12.5, INR 0.9, APTT 28.8 04/17/18 09:47: Sodium 142, Potassium 4.1, Chloride 103, Carbon Dioxide 32.0, Anion Gap 7, BUN 21 H, Creatinine 1.07, Est GFR (MDRD) Af Amer 93, Est GFR (MDRD) Non-Af 77, BUN/Creatinine Ratio 19.6, Glucose 98, Calcium 9.3 04/18/18 04:10: WBC 6.5, RBC 4.13 L, Hgb 13.5, Hct 41.1, MCV 99.5 H, MCH 32.7 H, MCHC 32.8, RDW 15.0 H, RDW Differential 53.6 H, Plt Count 201, MPV 8.5 04/18/18 04:10: Sodium 141, Potassium 4.5, Chloride 105, Carbon Dioxide 31.0, Anion Gap 5, BUN 18, Creatinine 1.03, Est GFR (MDRD) Af Amer 97, Est GFR (MDRD) Non-Af 80, BUN/Creatinine Ratio 17.5, Glucose 104, Calcium 8.6, Total Bilirubin 0.20, Triglycerides 444 H, Cholesterol 230 H, LDL Cholesterol TNP, VLDL Cholesterol TNP, HDL Cholesterol 33 L Rhythm: EKG: ECHO: Stress Test: Cardiac Cath: PCI: CT Surgery: Holter monitor: EPS: PPM: CXR: Chest CT Scan: Medical Necessity - Tobacco Use Smoking Status: Current every day smoker Assessment/Plan 1. Coronary artery disease: Patient status post angioplasty and stenting to his mid PDA with a drug-eluting stent, balloon angioplasty only to the ostium of the PDA, and drug-eluting stent to the distal right coronary artery into the posterior lateral branch straddling the ostium of the PDA with an excellent result. The patient reports he feels much better and has had no chest pain since stent implantation yesterday. His right groin is clean/dry/intact and his hemoglobin has remained stable and within nominal parameters. His creatinine is also remained within nominal parameters. Patient will continue his aspirin, Plavix, and we will start him on Hyzaar 50/12.5 mg p.o. daily in addition to his antihypertensive medications. Once his blood pressure has been reduced to normal limits he will be discharged home and follow-up with me going forward. The patient will be enrolled in cardiac rehab once his groin is healed and his blood pressure has been optimized. My suspicion is that the patient's symptoms are most likely related to fluctuations in his blood pressure prickly when it is quite high. He requires no further intervention or evaluation at this time. 2. Hyperlipidemia: Continue statin based medications. We will repeat lipid profile after cardiac rehab. 3. Patient may be discharged home. Code Visit Inpatient E&M: 40305 Subs Hosp L2
--- NOTE | 2018-04-18 08:45 | PN.CARD_ITS ---
Subjectve: Patient doing very well this morning. Somewhat hypertensive but has not yet received his antihypertensive medications. He reports he feels much better since his angioplasty and stenting. No chest pain or anginal symptoms. Right groin is clean/dry/intact without evidence of thrills, bruits or hematoma. 2+ DP PT pulses bilaterally. Telemetry negative. EKG shows normal sinus rhythm, no acute changes. Hemoglobin and creatinine within nominal limits. Objective: Vital Signs Temp Pulse Resp BP Pulse Ox 97.9 F 82 18 140/92 H 96 04/18/18 00:00 04/18/18 07:39 04/18/18 07:39 04/18/18 07:30 04/18/18 07:39 Oxygen Flow Rate (L/min) 2 Oxygen Delivery Method Room Air Weight: 245 lb 2.464 oz Body Mass Index (BMI) 38.0 Intake and Output for Last 24 Hours 04/16/18 04/17/18 04/18/18 23:59 23:59 23:59 Intake Total 1749 / 1749 90 / 90 Output Total 200 / 200 Balance 1549 / 1549 90 / 90 General: Awake, Alert, Oriented x 3 HEENT: PERRL, EOMI, Sclera Non Icteric Neck: Supple, Good ROM, No Lymph Node Enlargement Lungs: Clear to auscultation Cardiovascular: Regular Rhythm, Normal S1, Normal S2, No Murmurs, No Rubs, No Gallops Vascular: No Carotid Bruits, Normal Femoral Pulses, Normal Radial Pulses, Normal Dorsalis Pedal Pulse, Normal Posterior Tibial Pulses Abdomen: Bowel Sounds Present, Soft, Non Tender, No HSM, No Organomegaly Extremities: No Cyanosis, No Clubbing, No edema Neurological: No Focal Motor or Sensory Deficit 04/17/18 09:47: WBC 6.5, RBC 4.60, Hgb 15.1, Hct 45.3, MCV 98.5 H, MCH 32.8 H, MCHC 33.3, RDW 15.2 H, RDW Differential 54.0 H, Plt Count 222, MPV 8.4 04/17/18 09:47: PT 12.5, INR 0.9, APTT 28.8 04/17/18 09:47: Sodium 142, Potassium 4.1, Chloride 103, Carbon Dioxide 32.0, Anion Gap 7, BUN 21 H, Creatinine 1.07, Est GFR (MDRD) Af Amer 93, Est GFR (MDRD ) Non-Af 77, BUN/Creatinine Ratio 19.6, Glucose 98, Calcium 9.3 04/18/18 04:10: WBC 6.5, RBC 4.13 L, Hgb 13.5, Hct 41.1, MCV 99.5 H, MCH 32.7 H , MCHC 32.8, RDW 15.0 H, RDW Differential 53.6 H, Plt Count 201, MPV 8.5 04/18/18 04:10: Sodium 141, Potassium 4.5, Chloride 105, Carbon Dioxide 31.0, Anion Gap 5, BUN 18, Creatinine 1.03, Est GFR (MDRD) Af Amer 97, Est GFR (MDRD) Non-Af 80, BUN/Creatinine Ratio 17.5, Glucose 104, Calcium 8.6, Total Bilirubin 0.20, Triglycerides 444 H, Cholesterol 230 H, LDL Cholesterol TNP, VLDL Cholesterol TNP, HDL Cholesterol 33 L Rhythm: EKG: ECHO: Stress Test: Cardiac Cath: PCI: CT Surgery: Holter monitor: EPS: PPM: CXR: Chest CT Scan: Medical Necessity - Tobacco Use Smoking Status: Current every day smoker Assessment/Plan 1. Coronary artery disease: Patient status post angioplasty and stenting to his mid PDA with a drug-eluting stent, balloon angioplasty only to the ostium of the PDA, and drug-eluting stent to the distal right coronary artery into the posterior lateral branch straddling the ostium of the PDA with an excellent result. The patient reports he feels much better and has had no chest pain since stent implantation yesterday. His right groin is clean/dry/intact and his hemoglobin has remained stable and within nominal parameters. His creatinine is also remained within nominal parameters. Patient will continue his aspirin, Plavix, and we will start him on Hyzaar 50/ 12.5 mg p.o. daily in addition to his antihypertensive medications. Once his blood pressure has been reduced to normal limits he will be discharged home and follow-up with me going forward. The patient will be enrolled in cardiac rehab once his groin is healed and his blood pressure has been optimized. My suspicion is that the patient's symptoms are most likely related to fluctuations in his blood pressure prickly when it is quite high. He requires no further intervention or evaluation at this time. 2. Hyperlipidemia: Continue statin based medications. We will repeat lipid profile after cardiac rehab. 3. Patient may be discharged home. Code Visit Inpatient E&M: 86313 Subs Hosp L2
--- NOTE | 2018-04-18 10:00 | EKG12_ITS ---
Test Reason : AM EKG Blood Pressure : / mmHG Vent. Rate : 071 BPM Atrial Rate : 071 BPM P-R Int : 204 ms QRS Dur : 096 ms QT Int : 398 ms P-R-T Axes : 052 043 004 degrees QTc Int : 432 ms Normal sinus rhythm Normal ECG When compared with ECG of 10-APR-2018 05:00, No significant change was found Confirmed by SHABBIR JUAREZ ([id number]), desk editor YORDY BOWDEN ([id number]) on 04/23/2018 2:14:06 PM Referred By: Shabbir Juarez Confirmed By:SHABBIR JUAREZ
--- NOTE | 2018-04-18 11:17 | CRPHASE1 ---
Patient Data/Charges Phase II Referral:: [facility] Start Phase II:: FOLLOWING OFFICE VISIT WITH [employer] Risk Factors/Lifestyle Smoking Status: Current every day smoker Hx Hypertension: Yes Hx Diabetes Mellitus Type 1: No Hx Metabolic Disorders: Yes Hx Dyslipidemia: Yes Hx Obesity: Yes Height: 5 ft 10 in - BMI 36.1 Stress: Home/Family Risk Factor for Sedentary Lifestyle: Moderate Risk Laboratory Values: Cardiac Rehab Phase I Labs Triglycerides 444 mg/dL (-199) H 04/18/18 04:10 Cholesterol 230 mg/dL (200) H 04/18/18 04:10 LDL Cholesterol TNP 04/18/18 04:10 HDL Cholesterol 33 mg/dL (40-) L 04/18/18 04:10 Phase I Education Given On:: [place], Nutrition, Antiplatelet medication Issues Affecting Care:: None Hospital Course Presenting Symptoms:: UNSTABLE ANGINA / POSITIVE STRESS Medical/Surgical History [place]:: No Angina:: Yes CAD:: No Diabetes:: No Hypertension:: Yes Dyslipidemia:: Yes Discharge/Home/Social Eval Discharge Disposition: Home - PT DISCHARGED - PHONE CALL TO PT AND CR [employer] MAIL[facility].
--- NOTE | 2018-04-18 11:21 | CRPHASE1_ITS ---
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 Risk Factors/Lifestyle Smoking Status: Current every day smoker Hx Hypertension: Yes Hx Diabetes Mellitus Type 1: No Hx Metabolic Disorders: Yes Hx Dyslipidemia: Yes Hx Obesity: Yes Height: 5 ft 10 in - BMI 36.1 Stress: Home/Family Risk Factor for Sedentary Lifestyle: Moderate Risk Laboratory Values: Cardiac Rehab Phase I Labs Triglycerides 444 mg/dL (-199) H 04/18/18 04:10 Cholesterol 230 mg/dL (200) H 04/18/18 04:10 LDL Cholesterol TNP 04/18/18 04:10 HDL Cholesterol 33 mg/dL (40-) L 04/18/18 04:10 Phase I Education Given On:: [place], Nutrition, Antiplatelet medication Issues Affecting Care:: None Hospital Course Presenting Symptoms:: UNSTABLE ANGINA / POSITIVE STRESS Medical/Surgical History [place]:: No Angina:: Yes CAD:: No Diabetes:: No Hypertension:: Yes Dyslipidemia:: Yes Discharge/Home/Social Eval Discharge Disposition: Home - PT DISCHARGED - PHONE CALL TO PT AND CR BOOKLET MAILED.
--- NOTE | 2018-04-18 11:21 | CRPH1.INSTRU ---
General Education CAD and cardiac anatomy and function:: Not instructed Explanation of diagnoses and procedures:: Not instructed Sign/Symptoms of [place]:: Not instructed Antiplatelet therapy: Not instructed Proper use of NTG-SL: Not instructed Emergency procedures and activation of EMS: Not instructed Compliance of all prescribed medications: Not instructed - PT DISCHARGED. PHONE CALL MADE AND CR BOOKLET MAILED Smoking Patient Nicotine/Smoking Risk Factors Are:: Cigarettes - PATIENT INFO IN MAILED BOOKLET Recommendations Include:: Participation in a smoking cessation program Nicotine/Smoking Response Code:: Not instructed Dyslipidemia Patient Dyslipidemia Risk Factors Are:: Total Cholesterol - PATIENT INFO IN MAILED BOOKLET, Triglycerides, HDL - PATIENT INFO IN MAILED BOOKLET, LDL Recommendations Include:: Lipid profile provided, Reviewed NCEP/ATP guidelines, Therapeutic Lifestyle Change dietary guidelines Dyslipidemia Response Code:: Not instructed - PT. INFO IN MAILED BOOKLET Overweight/Obesity Patient Overweight/Obesity Risk Factors Are:: Overweight = 26-29, Obesity - > or = 30 - PATIENT INFO IN MAILED BOOKLET Recommendations Include:: Weight loss of 5-10%, Reduced calorie diet, Exercise 5-7 times/week Overweight/Obesity:: Not instructed Hypertension Recommendations Include:: Maintain BP <130/85 - PATIENT INFO IN MAILED BOOKLET, DASH dietary guidelines, Decrease/maintain normal body weight, Moderation of ETOH Hypertension:: Not instructed Heart Disease Heart Disease Response Code:: Not instructed Metabolic Syndrome Patient Metabolic Syndrome Risk Factors Are [3 of 5]:: Waist circumference > 35 [female] or 40 [male] - PATIENT INFO IN MAILED BOOKLET, High triglyceride >150, Hypertension, Low HDL <40 [male] or < 50 [female] Recommendations Include:: Reinforce compliance to risk factor modifications, Encouraged follow-up with Primary Care Physician Metabolic Syndrome Response Code:: Patient communicates acknowledgment, Not instructed Sedentary Patient Sedentary Risk Factors Are:: Lack of regular exercise Recommendations Include:: Aerobic exercise 5-7 times/week for 20-30 minutes continuously, Benefits of regular exercise, Discussed home walking program, Monitored Outpatient Cardiac Rehab Sedentary Response Code:: Not instructed Stress Recommendations Include:: Identification of stressors, and assessment of coping skills, Stress management techniques Stress Response Code:: Not instructed
--- NOTE | 2018-04-18 11:28 | CRPH1.INST_ITS ---
General Education CAD and cardiac anatomy and function:: Not instructed Explanation of diagnoses and procedures:: Not instructed Sign/Symptoms of [place]:: Not instructed Antiplatelet therapy: Not instructed Proper use of NTG-SL: Not instructed Emergency procedures and activation of EMS: Not instructed Compliance of all prescribed medications: Not instructed - PT DISCHARGED. PHONE CALL MADE AND CR BOOKLET MAILED Smoking Patient Nicotine/Smoking Risk Factors Are:: Cigarettes - PATIENT INFO IN MAILED BOOKLET Recommendations Include:: Participation in a smoking cessation program Nicotine/Smoking Response Code:: Not instructed Dyslipidemia Patient Dyslipidemia Risk Factors Are:: Total Cholesterol - PATIENT INFO IN MAILED BOOKLET, Triglycerides, HDL - PATIENT INFO IN MAILED BOOKLET, LDL Recommendations Include:: Lipid profile provided, Reviewed NCEP/ATP guidelines, Therapeutic Lifestyle Change dietary guidelines Dyslipidemia Response Code:: Not instructed - PT. INFO IN MAILED BOOKLET Overweight/Obesity Patient Overweight/Obesity Risk Factors Are:: Overweight = 26-29, Obesity - > or = 30 - PATIENT INFO IN MAILED BOOKLET Recommendations Include:: Weight loss of 5-10%, Reduced calorie diet, Exercise 5 -7 times/week Overweight/Obesity:: Not instructed Hypertension Recommendations Include:: Maintain BP <130/85 - PATIENT INFO IN MAILED BOOKLET , DASH dietary guidelines, Decrease/maintain normal body weight, Moderation of ETOH Hypertension:: Not instructed Heart Disease Heart Disease Response Code:: Not instructed Metabolic Syndrome Patient Metabolic Syndrome Risk Factors Are [3 of 5]:: Waist circumference > 35 [female] or 40 [male] - PATIENT INFO IN MAILED BOOKLET, High triglyceride > 150, Hypertension, Low HDL <40 [male] or < 50 [female] Recommendations Include:: Reinforce compliance to risk factor modifications, Encouraged follow-up with Primary Care Physician Metabolic Syndrome Response Code:: Patient communicates acknowledgment, Not instructed Sedentary Patient Sedentary Risk Factors Are:: Lack of regular exercise Recommendations Include:: Aerobic exercise 5-7 times/week for 20-30 minutes continuously, Benefits of regular exercise, Discussed home walking program, Monitored Outpatient Cardiac Rehab Sedentary Response Code:: Not instructed Stress Recommendations Include:: Identification of stressors, and assessment of coping skills, Stress management techniques Stress Response Code:: Not instructed
== END 2018-04-18 10:00 | disposition home or self-care (01) ==
LOC: CLSP 09:44 → ICU 04-18 07:18
PROVIDERS: Family Provider Physician Assistant; PCP Physician Assistant; Visit Provider Internal Medicine Cardiovascular Disease
DX: I25.110 Atherosclerotic heart disease of native coronary artery with unstable angina pectoris (principal); R94.39 Abnormal result of other cardiovascular function study; Z95.5 Presence of coronary angioplasty implant and graft; E78.5 Hyperlipidemia, unspecified; I10 Essential (primary) hypertension; Z79.82 Long term (current) use of aspirin; Z79.899 Other long term (current) drug therapy; F17.210 Nicotine dependence, cigarettes, uncomplicated
CPT/HCPCS: 36415; 80048; 80053; 80061; 85027; 85347; 85610; 85730; 87641; 92928; 92929; 93005; 99152; 99153; C1760; J7030; J7040; C1725; C1769; C1874; C1887; C1894; C9600; C9601; Q9967

== ENCOUNTER 2018-04-25 12:45 | Emergency (ER) | payer BC, SELFPAY ==
[2018-04-25 12:46] VITALS: BP 148/86; PULSE 73; RESP 18; TEMP 36.6; O2SAT 98; BMI 38.0
--- NOTE | 2018-04-25 13:25 | ADUL_ITS ---
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 No evidence of PSA or AV fistula. Procedure Exam performed portable in ED. Interpretation Summary Common femoral arteries appear bilaterally patent, demonstrating pulsatile color flow bilaterally. Common femoral veins are patent bilaterally, demonstrating normal, phasic venous flow. There is no evidence of pseudoanuerysm, arterio-venous fistula, or other iatrogenic abnormality on either side. Ordering Physician: Bruce Garcia Referring Physician: Misha Juarez Performed By: Kita Feliciano RVT
--- NOTE | 2018-04-25 14:20 | ED.DCSUM_ITS ---
- ER Visit Summary Date of Service: 04/25/18 Chief Complaint: Oozing and seeping from right groin wound History of Present Illness: The patient is a 53 M who presents with oozing and seeping from her right groin wound. He had a heart cath 1 week ago. A mynx closure device was used. The patient returned to work. Today he noticed some oozing from the wound. He was sent in by cardiology for evaluation for infection or possible pseudoaneurysm. Physical Examination: Afebrile vitals are stable Moist mucous membranes Heart regular rate and rhythm There is some induration of the right groin with thin bloody purulent drainage no active bleeding I do not appreciate fluctuance Neurovascularly intact distally difficult to palpate his dorsalis pedis pulse but there is a strong Doppler signal with brisk capillary refill normal sensation light touch Test Results: Arterial duplex shows no evidence of hematoma pseudoaneurysm or fistula. Emergency Department Course and Treatment: Patient does have evidence of a right groin wound infection. I do not believe there is an abscess as I do not appreciate any fluctuance and there is only small amount of drainage. Patient was placed on doxycycline. Will follow-up as an outpatient. Treatment Plan: [] Disposition: Discharge Impression: Right groin wound infection This note was generated with [employer] dictation software. It may contain incorrect words, spelling, and punctuation that were not noted in review of the chart prior to signing ED Disposition - Plan for ED Patient: Chief Complaint: Wound Check Referrals: Lucia Pandya PA [Primary Care Provider] -
--- NOTE | 2018-04-25 14:22 | ED.DEP ---
ED Disposition - Plan for ED Patient: Chief Complaint: Wound Check Instructions: ED Wound Infec After Surgery Prescriptions: Doxycycline Monohydrate 100 mg PO BID #20 cap Referrals: Lucia Pandya PA [Primary Care Provider] - Misha Juarez MD [STAFF PHYSICIAN] -
[2018-04-25 14:31] VITALS: BP 140/86; PULSE 61; RESP 15; O2SAT 95
== END 2018-04-25 14:35 | disposition home or self-care (01) ==
LOC: ED 13:55
PROVIDERS: Emergency Provider Emergency Medicine; Family Provider Physician Assistant; PCP Physician Assistant
DX: S31.103A Unspecified open wound of abdominal wall, right lower quadrant without penetration into peritoneal cavity, initial encounter (principal); L08.9 Local infection of the skin and subcutaneous tissue, unspecified; X58.XXXA Exposure to other specified factors, initial encounter; Y93.9 Activity, unspecified; Y92.9 Unspecified place or not applicable; I25.10 Atherosclerotic heart disease of native coronary artery without angina pectoris; I10 Essential (primary) hypertension; E78.00 Pure hypercholesterolemia, unspecified; Z95.5 Presence of coronary angioplasty implant and graft; Z79.82 Long term (current) use of aspirin; Z79.899 Other long term (current) drug therapy; Z72.0 Tobacco use
CPT/HCPCS: 93926; 99282

== ENCOUNTER 2018-07-12 15:18 | Emergency (ER) | payer BC, SELFPAY ==
[2018-07-12 15:19] VITALS: BP 172/96; PULSE 77; RESP 18; TEMP 36.6; O2SAT 94; BMI 39.5
--- NOTE | 2018-07-12 15:24 | EKG12_ITS ---
Test Reason : CP Blood Pressure : / mmHG Vent. Rate : 079 BPM Atrial Rate : 079 BPM P-R Int : 182 ms QRS Dur : 090 ms QT Int : 386 ms P-R-T Axes : 058 060 034 degrees QTc Int : 442 ms Normal sinus rhythm Normal ECG Confirmed by PALOMA OLEARY, KAMILLE ([id number]), video editor YORDY BOWDEN ([id number]) on 07/15/2018 3:15:45 PM Referred By: KAILEE Confirmed By:KAMILLE DOW MD
[2018-07-12 15:26] VITALS: BP 172/96
[2018-07-12 15:29] VITALS: O2SAT 95
--- NOTE | 2018-07-12 15:30 | RAD_ITS ---
STUDY: X-RAY CHEST REASON FOR EXAM: Male, 53 years old. Chest pain TECHNIQUE: Single PA view of the chest. COMPARISON: April 09, 2018 FINDINGS: There is no new focal consolidation. Normal size heart. Normal mediastinum and susana. Normal visualized pulmonary arteries. Normal visualized aortic arch and descending thoracic aorta. Normal visualized thoracic spine. Normal visualized ribs, clavicles, and shoulders. There is no demonstrated abnormality of the visualized soft tissue structures of the upper abdomen. RAD/Chest 1 View (Portable) IMPRESSION: No acute cardiopulmonary process. Electronically Signed: Kelsea Vazquez MD at 16:10 EDT Tel , Service support ,
[2018-07-12] MEDS: Aspirin 81 MG TAB.CHEW 324 MG PO (15:32)
[2018-07-12 15:38] LABS: Absolute Lymphocyte Count 2.39 X10^3/ul (0.83-4.51); Absolute Neutrophil Count 4.6 X10^3/uL (2.0-7.7); Basophil# 0.04 X10^3/uL; Basophil% 0.5 % (0-1); Eosinophil# 0.26 X10^3/uL; Eosinophils% 3.2 % (0-5); Hematocrit 41.2 % (40-54); Hemoglobin 14.2 g/dl (13.0-16.5); Lymphocyte # 2.39 X10^3/ul (4.0); Lymphocyte % 29.3 % (19-41); Mean Corp Hgb Conc 34.5 g/gl (32-36); Mean Corpuscular Hgb 33.2 pg (27.0-32.0); Mean Corpuscular Volume 96.3 fL (80-94); Mean Platelet Vol. 8.6 fl (6.2-12.0); Monocyte# 0.91 X10^3/uL; Monocyte% 11.2 % (0-10); Neutrophil # 4.55 X10^3/uL (2.7-7.7); Neutrophil % 55.7 % (47-70); Platelet Count 224 K/mm3 (150-450); RBC Distribution Width CV 14.9 % (11.6-14.6); RBC Distribution Width SD 49.9 fl (35.1-43.9); Red Blood Count 4.28 M/mm3 (4.6-6.2); White Blood Count 8.2 K/mm3 (4.4-11.0)
--- NOTE | 2018-07-12 15:47 | ED.DCSUM_ITS ---
- ER Visit Summary Date of Service: 07/12/18 Chief Complaint: Chest pain History of Present Illness: The patient is a 53 M of CAD, ID with 5 iliac stents. Also hypertension high cholesterol. Last cardiac catheterization with stents was in March. Since that time he is done well. States he had an MRI yesterday. Today after he got up he noticed midsternal chest pain that radiated to the right. This is similar to his prior cardiac chest pain except that always radiating to the left. Mild diaphoresis. He states he is chronically short of breath because he is a smoker. He still smokes. He is on both Plavix and aspirin. Exertion does not change his pain. He states the pain started this morning after he got up. Around 930. He describes it as an aching. Physical Examination: Well-appearing middle-age male. Vital signs are febrile. No distress. H EENT exam unremarkable. Neck nontender. Lungs clear to auscultation bilaterally. Heart regular rhythm no murmur. Abdomen is soft and nontender. Chest wall no reproducible tenderness. He is moving all 4 extremities. 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 Dorsi plantar flexion. Trace lower extremity edema. Neurologically is awake and alert with no focal motor deficits. Test Results: Chest x-ray portable one view shows no acute abnormality read both by myself and radiologist. EKG is a sinus rhythm rate of 79 with no acute change from the most recent EKG from March of this year. CBC normal. Chemistries unremarkable with a creatinine 1.31. Normal gap. Troponin normal. Emergency Department Course and Treatment: Patient will undergo a cardiac workup. He has had no recent travel, surgery or mobilization. Repeat exam at 1656 patient is doing well. Is currently symptom-free. I spoke at length to both he and his . I explained and I could not specifically diagnosis chest pain. This could be cardiac. It could be his angina. Or may be totally unrelated noncardiac chest pain. I explained to him that I thought would be in his best interest to be admitted. He is adamantly against that. I offered him a repeat troponin several hours after the first he deferred that. And he wants to be discharged home. I also spoke to both he and his at length about smoking sensation. Treatment Plan: Signing out against medical advice. Will follow up with his doctor. Continue his current meds. Return if worse. Disposition: Signing out AMA. Impression: Acute chest pain of uncertain etiology . History of CAD, ID with 5 cardiac stents Signing out AMA This note was generated with [employer] dictation software. It may contain incorrect words, spelling, and punctuation that were not noted in review of the chart prior to signing ED Disposition - Plan for ED Patient: Chief Complaint: Chest Pain Referrals: Lucia Pandya PA [Primary Care Provider] -
[2018-07-12 15:48] LABS: POSITIVE COUNT NO; POSITIVE DIFFERENTIAL NO; POSITIVE MORPHOLOGY NO
[2018-07-12 15:54] LABS: Anion Gap 7 (5-15); BUN 18 mg/dL (7-18); BUN/Creat Ratio 13.7 RATIO (10-20); Calcium,Total 8.9 mg/dL (8.5-10.1); Chloride 102 mmol/L (98-107); Creatinine, Serum 1.31 mg/dL (0.70-1.30); EST Glomerular Filtration Rate 61 mL/min (>60); Est Glom Filt Rate - Afr Amer 74 mL/min (>60); Estimated Creatinine Clearance 60.97 ml/min; Glucose 105 mg/dL (74-106); Potassium 3.5 mmol/L (3.5-5.1); Sodium Level 140 mmol/L (136-145)
[2018-07-12 16:18] VITALS: BP 131/85; PULSE 72; RESP 17; O2SAT 90
--- NOTE | 2018-07-12 17:01 | ED.DEP ---
ED Disposition - Plan for ED Patient: Disposition: Home or Assisted Living Chief Complaint: Chest Pain Instructions: ED Chest Pain Atypical Unkn Cause Referrals: Misha Juarez MD [STAFF PHYSICIAN] - Additional Instructions: Call follow-up with Dr. Juarez this coming week. Continue your current medications. Return to ER feeling worse. Absolutely positively try to stop smoking !!!
[2018-07-12 17:20] VITALS: BP 162/91; PULSE 82; RESP 20; O2SAT 94
== END 2018-07-12 17:21 | disposition home or self-care (01) ==
PROVIDERS: Emergency Provider Emergency Medicine; Family Provider Physician Assistant; PCP Physician Assistant
DX: R07.9 Chest pain, unspecified (principal); I25.10 Atherosclerotic heart disease of native coronary artery without angina pectoris; I25.2 Old myocardial infarction; Z95.5 Presence of coronary angioplasty implant and graft; Z53.21 Procedure and treatment not carried out due to patient leaving prior to being seen by health care provider; I10 Essential (primary) hypertension; E78.00 Pure hypercholesterolemia, unspecified; Z79.82 Long term (current) use of aspirin; Z79.02 Long term (current) use of antithrombotics/antiplatelets; Z79.899 Other long term (current) drug therapy; F17.200 Nicotine dependence, unspecified, uncomplicated
CPT/HCPCS: 71045; 80048; 84484; 85025; 93005; 99284; A4216

== ENCOUNTER 2018-09-29 17:19 | Emergency (ER) | payer BC, SELFPAY ==
[2018-09-13 15:16] VITALS: BMI 39.6
[2018-09-29 17:20] VITALS: BP 171/102; PULSE 77; RESP 14; TEMP 36.8; O2SAT 95; BMI 41.6
--- NOTE | 2018-09-29 17:41 | RAD_ITS ---
STUDY: X-RAY CHEST REASON FOR EXAM: Male, 53 years old. Short of breath TECHNIQUE: Frontal and lateral views of the chest COMPARISON: None. FINDINGS: The lungs are clear. There are no pleural effusions. There is no pneumothorax. The heart is normal in size. The visualized osseous structures are within normal limits. RAD/Chest PA and Lateral IMPRESSION: No acute thoracic pathology. Electronically Signed: Latrell Purcell, at 18:32 EST Tel , Service support ,
--- NOTE | 2018-09-29 18:54 | EKG12_ITS ---
Test Reason : SOB Blood Pressure : / mmHG Vent. Rate : 067 BPM Atrial Rate : 067 BPM P-R Int : 186 ms QRS Dur : 098 ms QT Int : 400 ms P-R-T Axes : 056 061 037 degrees QTc Int : 422 ms Normal sinus rhythm Normal ECG Confirmed by REGIS OLEARY, MERLE ([id number]), managing editor YORDY BOWDEN ([id number]) on 10/02/2018 2:32:55 PM Referred By: MARCELO Confirmed By:MERLE STACY MD
[2018-09-29 19:25] VITALS: BP 155/97; PULSE 71; RESP 16; RESP 18; O2SAT 92; O2SAT 93
[2018-09-29 19:26] LABS: Absolute Lymphocyte Count 2.85 X10^3/ul (0.83-4.51); Absolute Neutrophil Count 4.3 X10^3/uL (2.0-7.7); Basophil# 0.02 X10^3/uL; Basophil% 0.3 % (0-1); Eosinophil# 0.21 X10^3/uL; Eosinophils% 2.6 % (0-5); Hematocrit 40.2 % (40-54); Hemoglobin 13.4 g/dl (13.0-16.5); Lymphocyte # 2.85 X10^3/ul (4.0); Lymphocyte % 35.6 % (19-41); Mean Corp Hgb Conc 33.3 g/gl (32-36); Mean Corpuscular Hgb 32.5 pg (27.0-32.0); Mean Corpuscular Volume 97.6 fL (80-94); Mean Platelet Vol. 8.6 fl (6.2-12.0); Monocyte% 7.5 % (0-10); Neutrophil # 4.31 X10^3/uL (2.7-7.7); Neutrophil % 53.9 % (47-70); POSITIVE COUNT NO; POSITIVE DIFFERENTIAL NO; POSITIVE MORPHOLOGY NO; Platelet Count 177 K/mm3 (150-450); RBC Distribution Width CV 15.1 % (11.6-14.6); Red Blood Count 4.12 M/mm3 (4.6-6.2)
[2018-09-29 19:43] LABS: ALB/GLOB Ratio 0.9 RATIO (0.9-2.4); AST(SGOT) 15 U/L (15-37); Alanine Aminotransfer ALT/SGPT 24 U/L (16-61); Albumin, Serum 3.3 g/dL (3.2-5.0); Alkaline Phosphatase 72 U/L (45-117); Anion Gap 7 (5-15); BUN 25 mg/dL (7-18); BUN/Creat Ratio 23.1 RATIO (10-20); Calcium,Total 8.8 mg/dL (8.5-10.1); Chloride 103 mmol/L (98-107); Creatinine, Serum 1.08 mg/dL (0.70-1.30); EST Glomerular Filtration Rate 76 mL/min (>60); Est Glom Filt Rate - Afr Amer 92 mL/min (>60); Estimated Creatinine Clearance 71.38 ml/min; Globulin 3.8 g/dL (2.2-4.2); Glucose 113 mg/dL (74-106); Potassium 3.7 mmol/L (3.5-5.1); Protein, Total 7.1 g/dL (6.4-8.2); Sodium Level 139 mmol/L (136-145)
--- NOTE | 2018-09-29 20:47 | ED.DCSUM_ITS ---
- ER Visit Summary Date of Service: 09/29/18 Chief Complaint: Increased abdominal girth, 10 pound weight gain and bilateral lower extremity swelling History of Present Illness: The patient is a 53 M who has history of TIA, coronary disease, hypertension, hypercholesterolemia and DVT presents because of increased abdominal girth, 10 pound weight gain and bilateral edema that has increased over the last 3-4 weeks. He states he is having difficulty sleeping. He has to prop his head up with multiple pillows. He has not been compliant with his BiPAP device. He states he cannot tolerated. He is scheduled for outpatient CAT scan to evaluate his abdominal swelling. He denies fever, chills night sweats. He denies ocular, visual auditory symptoms. He denies chest pain, palpitations or rapid heartbeat. He denies urologic symptoms. He denies myalgias arthralgias. He denies headache, anesthesia, paresthesia or motor weakness. He denies any other symptoms. Physical Examination: Patient's vitals are remarkable and elevated blood pressure 171/102. Is not tachycardic, tachypneic or hypoxic. Head is atraumatic normocephalic. Pupils are equal round reactive. Extraocular muscles are intact. TMs are pearly white with landmarks noted. Nares patent with no drainage. Posterior pharynx without erythema or exudate. Uvula is midline. There is no dysphonia or dysphasia. Trachea is midline. There is no stridor with auscultation of the neck. Heart is regular without murmur, gallop or rub. S1 and S2 are normal. Lungs are clear to auscultation with good movement of air bilaterally. Abdomen is distended tympanitic and suspect shifting dullness consistent with ascites. There is 1+-2+ pitting edema of the lower extremity. Neuro exam is nonfocal. Test Results: Nurse obtained chest x-ray per protocol. Cardiac silhouette is borderline. Mediastinum is normal. Lung parenchyma is normal. Osseous structures are normal. CBC is unremarkable. Electric panels unremarkable. Hepatic profile is unremarkable. Troponin is less than 0.015. Emergency Department Course and Treatment: To evaluate patient's abdominal swelling, orthopnea and pedal edema cardiac workup was undertaken. Suspect patient has right heart failure secondary to noncompliance with BiPAP to treat his obstructive sleep apnea. Treatment Plan: Outpatient ultrasound was obtained to confirm ascites and if th ere is ascites patient will need paracentesis. He was then informed of the importance using his CPAP machine. Disposition: Discharge to home with outpatient ultrasound Impression: 1. 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 Ascites This note was generated with [employer] dictation software. It may contain incorrect words, spelling, and punctuation that were not noted in review of the chart prior to signing ED Disposition - Plan for ED Patient: Disposition: Home or Assisted Living Chief Complaint: Shortness of Breath Instructions: ED Ascites, Paracentesis, ED CHF Right Side Referrals: Lucia Pandya PA [Primary Care Provider] - Keep Luan appointment Additional Instructions: You will need to contact the outpatient radiology department for ultrasound to be performed within the next 24-72 hours.
== END 2018-09-29 20:56 | disposition home or self-care (01) ==
PROVIDERS: Emergency Provider Emergency Medicine; Family Provider Physician Assistant; PCP Physician Assistant
DX: I11.0 Hypertensive heart disease with heart failure (principal); I50.9 Heart failure, unspecified; G47.33 Obstructive sleep apnea (adult) (pediatric); Z91.19 Patient's noncompliance with other medical treatment and regimen; R18.8 Other ascites; I25.10 Atherosclerotic heart disease of native coronary artery without angina pectoris; E78.00 Pure hypercholesterolemia, unspecified; Z86.73 Personal history of transient ischemic attack (TIA), and cerebral infarction without residual deficits; Z86.718 Personal history of other venous thrombosis and embolism; Z95.5 Presence of coronary angioplasty implant and graft; Z79.82 Long term (current) use of aspirin; Z79.899 Other long term (current) drug therapy
CPT/HCPCS: 71046; 80053; 84484; 85025; 93005; 94760; 99284; A4216

== ENCOUNTER → 2018-09-30 10:57 | Outpatient (CLI) | payer BC, SELFPAY ==
[2018-09-29 17:20] VITALS: BMI 41.6
--- NOTE | 2018-09-30 11:07 | US_ITS ---
STUDY: ABDOMINAL ULTRASOUND -4 quadrants. REASON FOR VISIT: Male, 53 years old. Assessment for ascites. TECHNIQUE: Ultrasound evaluation of the 4 quadrants was performed with real-time and static herrera-scale imaging. TECHNICAL QUALITY: Adequate. COMPARISON: None. FINDINGS: There is no evidence of ascites. US/Abdomen Limited IMPRESSION: Assessment of the 4 quadrants of the abdomen shows no evidence of ascites. Electronically Signed: Nakul Painter MD at 12:54 EST Tel [phone], Service support ,
[2018-09-30 13:55] LABS: BNP,B-Type NATRIURETIC PEPTIDE 46.2 pg/mL (0-100)
== END ==
PROVIDERS: Physician Assistant Medical; Family Provider Physician Assistant; PCP Physician Assistant; Visit Provider Emergency Medicine
DX: R18.8 Other ascites (principal); R06.09 Other forms of dyspnea
CPT/HCPCS: 76705; 83880

== ENCOUNTER → 2018-10-15 10:38 | Outpatient (CLI) | payer BC, SELFPAY ==
[2018-09-29 17:20] VITALS: BMI 41.6
--- NOTE | 2018-10-15 10:41 | ECHOD_ITS ---
Reason For Study: DYSPNEA Procedure This was a 2D Doppler, Color Flow transthoracic echocardiogram. The study was technically difficult. Exam performed in department. Left Ventricle Moderate concentric left ventricular hypertrophy. The estimated ejection fraction is 75 %. Stage 1 diastolic dysfunction. Intra cavitary gradient of 25 mm HG. No regional wall motion abnormalities noted. Right Ventricle Normal size and thickness. Normal systolic function. Atria Normal left atrium. Normal right atrium. Normal atrial septum. Mitral Valve The mitral valve is structurally normal. No prolapse or stenosis seen. Tricuspid Valve Normal tricuspid valve. Unable to estimate RV systolic pressure due to inadequate jet, pulmonary artery pressure probably normal. Aortic Valve Normal aortic valve. Trisinus/trileaflet aortic valve. Pulmonic Valve Normal pulmonic valve. Great Vessels Normal aortic root. Normal arch. Normal inferior vena cava. Inferior vena cava collapse with sniff. Pericardium/Pleural No pericardial effusion. MMode/2D Measurements & Calculations LVIDd: 4.5 cm IVSd: 1.7 cm Ao root diam: 3.8 cm LVIDs: 2.4 cm LVPWd: 1.5 cm RVDd: 2.7 cm FS: 47.3 % LAV(MOD-bp): 53.1 ml EDV(MOD-sp4): 99.1 ml EDV(MOD-sp2): 56.0 ml LAV(MOD-bp) Indexed: 23.5 ml/m2 ESV(MOD-sp4): 30.9 ml LAV(MOD-sp2): 47.1 ml EF(MOD-sp4): 68.8 % LAV(MOD-sp4): 58.3 ml SV(MOD-sp4): 68.1 ml LA dimension(2D): 4.2 cm LA A4 area: 19.3 cm2 RA A4 area: 11.1 cm2 Time Measurements MV dec time: 0.34 sec Doppler Measurements & Calculations MV E max lex: 54.4 cm/sec Lat Peak E' Lex: 4.7 cm/sec Med Peak E' Lex: 4.6 cm/sec MV A max lex: 64.1 cm/sec E/E' lat: 11.6 E/E' med: 11.9 MV E/A: 0.85 Ao V2 max: 206.2 cm/sec LV V1 max: 163.3 cm/sec PA V2 max: 137.5 cm/sec Ao max P.0 mmHg LV V1 max P.7 mmHg Interpretation Summary Moderate concentric left ventricular hypertrophy. The estimated ejection fraction is 75 %. Stage 1 diastolic dysfunction. Intra cavitary gradient of 25 mm HG. Unable to estimate RV systolic pressure due to inadequate jet, pulmonary artery pressure probably normal. There is no comparison study available. Ordering Physician: Krystina Bartholomew/Misha Juarez Referring Physician: Lucia MCKEON Performed By: Darshana Ponce, ANAY, RVT
== END ==
PROVIDERS: Family Provider Physician Assistant; PCP Physician Assistant; Referring Provider Physician Assistant Medical; Visit Provider Physician Assistant Medical
DX: R06.09 Other forms of dyspnea (principal)
CPT/HCPCS: 93306

== ENCOUNTER 2018-10-17 09:47 | Emergency (ER) | payer BC, SELFPAY ==
[2018-10-17 09:48] VITALS: BP 142/80; PULSE 85; RESP 18; TEMP 36.2; O2SAT 97; BMI 39.1
--- NOTE | 2018-10-17 09:52 | ED.RN ---
HAD APPP AT 1:[address] MABRY
--- NOTE | 2018-10-17 10:08 | RAD_ITS ---
STUDY: X-RAY - LEFT HIP REASON FOR EXAM: Male, 53 years old. Increasing left hip pain. TECHNIQUE: 2 views of the hip. COMPARISON: None. FINDINGS: Degenerative changes of the sacroiliac joints bilaterally worse on the right side. There is widening of the femoral neck of the right and left femurs. A component of femoral acetabular impingement should be ruled out. Normal acetabulum. There is moderate articular joint space narrowing. Normal visualized superior and inferior pubic rami and ischial tuberosities. 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 Electronically Signed: Nakul Painter MD at 11:16 EST Tel [phone], Service support ,
--- NOTE | 2018-10-17 12:29 | ED.VISSUMM ---
- ER Visit Summary Date of Service: 10/17/18 Chief Complaint: [Left hip pain] History of Present Illness: The patient is a 53 M [presents to the emergency department complaint of pain in his left hip that he has had chronically for some time. Patient is currently in pain management and is being treated for bursitis. Patient has a history of degenerative arthritis of both hips. Patient also sees orthopedics Dr. Seamus Roy. Patient had an appointment today with nurse practitioner for Dr. Roy however he did not feel he could wait and came to the emergency department instead. Patient states that since last night it feels like his left hip keeps popping and causes him severe pain towards the center of his back. Patient denies any new injuries or falls. Patient has pain with standing or bearing weight on the hip however at rest does not have any pain.] Physical Examination: [HEENT-PERRLA, EOMI. Cranial nerves II through XII grossly intact. TMs clear. Mucous membranes moist. No adenopathy. Cardiovascular-regular rate and rhythm without murmur or ectopy Lungs-clear to auscultation, chest wall stable without crepitus or subcu emphysema Abdomen-normoactive bowel sounds, soft, nontender, no rebound or rigidity, no peritoneal signs. Extremities-intact ?4, normal range of motion, normal pulses, atraumatic. Left hip-patient has pain with range of motion in the hip however there is no deformity noted. No evidence for dislocation. He is neurovascular intact with normal station normal cap refill.] There is no erythema or warmth noted over the hip. Test Results: [X-rays of the left hip were obtained as was the pelvis which showed degenerative changes and bilateral femoral acetabular impingement.] Emergency Department Course and Treatment: [Patient denies anything for pain here] Treatment Plan: [Case was discussed with Dr. Seamus Roy who stated that they can see the patient either today or tomorrow for follow-up. Patient does not want anything for pain for home. As he has Percocet.] Disposition: [Discharged home in stable condition] Impression: [Acute exacerbation of chronic left hip pain] This note was generated with [employer] software. It may contain incorrect words, spelling, and punctuation that were not noted in review of the chart prior to signing ED Disposition - Plan for ED Patient: Chief Complaint: Lower Extremity Injury Referrals: Lucia Pandya PA [Primary Care Provider] -
--- NOTE | 2018-10-17 12:32 | ED.DEP ---
ED Disposition - Plan for ED Patient: Chief Complaint: Lower Extremity Injury Instructions: ED Sprain Hip, Understanding Chronic Pain, Osteoarthritis: Injections or Surgery Referrals: Lucia Pandya PA [Primary Care Provider] - Seamus Roy DO [STAFF PHYSICIAN] - 1-2 Days if not improving
--- OUTSIDE RECORDS SUMMARY | 2018-12-22 01:20 | XMS RPT_ITS ---
:1965 Author Organization OHIP Support Name Relationship Address Phone DAILY LETTY Unavailable Unavailable + [place] [employer] Unavailable [address] + [place] [address] WHITE, MIESHA Unavailable [address] + [place] [address] DAILY CANDY Unavailable Unavailable + [place] [employer] Unavailable [address] + [place] [address] WHITE, MIESHA Unavailable [address] + [place] [address] DAILY, CANDY Unavailable Unavailable + [place] [facility] Unavailable [address] + [place] [address] WHITE, MIESHA Unavailable [address] + [place] [address] DAILY CANDY Unavailable Unavailable + [place] [facility] Unavailable [address] + [place] [address] WHITE, MIESHA Unavailable [address] + [place] [address] DAILY CANDY Unavailable Unavailable + [place] [facility] Unavailable [address] + [place] [address] WHITE, MIESHA Unavailable [address] + [place] [address] DAILY CANDY Unavailable [address] + [place] [address] [employer] Unavailable [address] + [place] [address] WHITE, MIESHA Unavailable [address] + [place] [address] HINKEL, CANDY Unavailable [address] + [place] [address] [facility] Unavailable [address] + [place] [address] WHITE, MIESHA Unavailable [address] + [place] [address] HINKEL, CANDY Unavailable [address] + [place] [address] [employer] Unavailable [address] + [place] [address] WHITE, MIESHA Unavailable [address] + [place] [address] HINKEL, CANDY Unavailable [address] + [place] [address] [facility] Unavailable [address] + [place] [address] WHITE, MIESHA Unavailable [address] + [place] [address] HINKEL, CANDY Unavailable [address] + [place] [address] [facility] Unavailable [address] + [place] [address] WHITE, MIESHA Unavailable [address] + [place] [address] HINKEL, CANDY Unavailable [address] + [place] [address] [employer] Unavailable [address] + [place] [address] WHITE, MIESHA Unavailable [address] + [place] [address] HINKEL, CANDY Unavailable [address] + [place] [address] [employer] Unavailable [address] + [place] [address] WHITE, MIESHA Unavailable [address] + [place] [address] DAILY, CANDY Unavailable [address] + [place] [address] [employer] Unavailable [address] + [place] [address] WHITE, MIESHA Unavailable [address] + [place] [address] BONIFACIONHIRA, CANDY Unavailable [address] + [place] [address] [employer] Unavailable [address] + [place] [address] WHITE, MIESHA Unavailable [address] + [place] [address] DAILY, CANDY Unavailable [address] + [place] [address] [employer] Unavailable [address] + [place] [address] WHITE, MIESHA Unavailable [address] + [place] [address] DAILY, CANDY Unavailable [address] + [place] [address] [employer] Unavailable [address] + [place] [address] WHITE, MIESHA Unavailable [address] + [place] [address] DAILY, CANDY Unavailable [address] + [place] [address] [facility] Unavailable [address] + [place] [address] WHITE, MIESHA Unavailable [address] + [place] [address] DAILY, CANDY Unavailable [address] + [place] [address] [facility] Unavailable [address] + [place] [address] WHITE, MIESHA Unavailable [address] + [place] [address] HINHIRA, CANDY Unavailable [address] + [place] [address] [facility] Unavailable [address] + [place] [address] WHITE, MIESHA Unavailable [address] + [place] [address] DAILY, CANDY Unavailable [address] + [place] [address] [facility] Unavailable [address] + [place] [address] WHITE, MIESHA Unavailable [address] + [place] [address] DAILY, CANDY Unavailable [address] + [place] [address] [facility] Unavailable [address] + [place] [address] WHITE, MIESHA Unavailable [address] + [place] [address] DAILY, CANDY Unavailable [address] + [place] [address] [facility] Unavailable [address] + [place] [address] WHITE, MIESHA Unavailable [address] + [place] [address] DAILY, CANDY Unavailable [address] + [place] [address] [facility] Unavailable [address] + [place] [address] WHITE, MIESHA Unavailable [address] + [place] [address] DAILY, CANDY Unavailable [address] + [place] [address] [facility] Unavailable [address] + [place] [address] WHITE, MIESHA Unavailable [address] + [place] [address] HINHIRA, CANDY Unavailable [address] + [place] [address] [facility] Unavailable [address] + [place] [address] WHITE, MIESHA Unavailable [address] + [place] [address] DAILY CANDY Unavailable [address] + [place] [address] [facility] Unavailable [address] + [place] [address] WHITE, MIESHA Unavailable [address] + [place] [address] DAILY, CANDY Unavailable [address] + [place] [address] [facility] Unavailable [address] + [place] [address] WHITE, MIESHA Unavailable [address] + [place] [address] DAILY CANDY Unavailable [address] + [place] [address] [employer] Unavailable [address] + [place] [address] WHITE, MIESHA Unavailable [address] + [place] [address] DAILY, ZEV Unavailable [address] + [place] [address] [employer] Unavailable [address] + [place] [address] TRAYLINEK, MIESHA Unavailable [address] + [place] [address] DAILY, ZEV Unavailable [address] + [place] [address] [facility] Unavailable [address] + [place] [address] TRAYLINEK, MIESHA Unavailable [address] + [place] [address] DAILY CANDY Unavailable [address] + [place] [address] [facility] Unavailable [address] + [place] [address] WHITE, MIESHA Unavailable [address] + [place] [address] HINKEL, CANDY Unavailable [address] + [place] [address] [facility] Unavailable [address] + [place] [address] WHITE, MIESHA Unavailable [address] + [place] [address] HINKEL, CANDY Unavailable [address] + [place] [address] [facility] Unavailable [address] + [place] [address] WHITE, MIESHA Unavailable [address] + [place] [address] HINKEL, CANDY Unavailable [address] + [place] [address] [facility] Unavailable [address] + [place] [address] WHITE, MIESHA Unavailable [address] + [place] [address] Care Team Providers Name Role Phone MELI JARVIS Admitting Unavailable ANG BOWEN Attending Unavailable Lucia PANDYA (PA-C) Attending Unavailable TESTRAKECHEYENNE Attending Unavailable TESTRAKE, CHEYENNE Referring Unavailable TESTRAKE, CHEYENNE Referring Unavailable MATTVADIM Attending Unavailable TESTRAKECHEYENNE Attending Unavailable TESTRAKE, CHEYENNE Referring Unavailable TESTRAKE, CHEYENNE Attending Unavailable TESTRAKE, CHEYENNE Referring Unavailable TESTRAKE, CHEYENNE Referring Unavailable PANDYALucia MARS (PA-C) Attending Unavailable Lucia PANDYA (PA-C) Referring Unavailable PANDYALucia MARS (PA-C) Attending Unavailable Lucia PANDYA (PA-C) Attending Unavailable PANDYALucia (PA-C) Attending Unavailable PANDYALucia (PA-C) Attending Unavailable MASCI, ALEX Cohen Attending Unavailable MASCI, ALEX A Referring Unavailable MASCI, ALEX Cohen Referring Unavailable MASCI, ALEX Cohen Referring Unavailable MASCI, ALEX Cohen Attending Unavailable MASCIALEX Referring Unavailable VADIM GUTIERREZ Attending Unavailable VADIM GUTIERREZ Attending Unavailable MATTVADIM Attending Unavailable MATT, VADIM J Referring Unavailable MATT, VADIM J Referring Unavailable MATT, VADIM J Referring Unavailable MATT, VADIM J Referring Unavailable Lucia PANDYA (AUGUST) Attending Unavailable Cachorro Domingo Attending Unavailable Lucia Pandya Referring Unavailable Pandya, M Anibal Primary Care Unavailable ChristianVan Attending Unavailable Christian Van Attending Unavailable Mumtaz M Anibal Primary Care Unavailable Tala Rodriguez Consulting Unavailable Krystina Bartholomew Attending Unavailable Krystina Bartholomew Referring Unavailable Pandya, M Anibal Primary Care Unavailable Krystina Bartholomew Attending Unavailable Krystina Bartholomew Referring Unavailable Pandya, M Anibal Primary Care Unavailable Misha Bacon Attending Unavailable Krystina Bartholomew Referring Unavailable Pandya, M Anibal Primary Care Unavailable Krystina Bartholomew Consulting Unavailable Matt, Vadim Primary Care Unavailable Pj Wiseman Attending Unavailable Misha Bacon Attending Unavailable Misha Bacon Referring Unavailable [place], Vadim Primary Care Unavailable Misha Bacon Attending Unavailable [place], Vadim Referring Unavailable Matt, Vadim Primary Care Unavailable Cachorro Domingo Attending Unavailable Matt, Vadim Referring Unavailable [place], Vadim Primary Care Unavailable Cachorro Domingo Attending Unavailable Cachorro Domingo Referring Unavailable PandyaLucia mars Primary Care Unavailable Misha Bacon Attending Unavailable Lucia Pandya Primary Care Unavailable Mumtaz, M Anibal Primary Care Unavailable Fabian, Samuel Admitting Unavailable Moodispaw, Alex Consulting Unavailable Adelinaam, Kiki Ilda Attending Unavailable Lucia Pandya Primary Care Unavailable Praveen Castaneda Attending Unavailable Fabian, Samuel Admitting Unavailable Mumtaz M Anibal Primary Care Unavailable Moodispasebastien, Alex Consulting Unavailable Fabian, Samuel Attending Unavailable Fabian, Samuel Consulting Unavailable Fabian, Samuel Admitting Unavailable Moodispaw Alex Attending Unavailable Mumtaz, M Anibal Primary Care Unavailable Moodispaw, Alex Consulting Unavailable Fabian, Samuel Consulting Unavailable Fabian, Samuel Admitting Unavailable Moodispaw, Alex Attending Unavailable Mumtaz M Anibal Primary Care Unavailable Moodispaw, Alex Consulting Unavailable Koram, Kiki Ilda Consulting Unavailable Misha Bacon Attending Unavailable Fabian, Samuel Admitting Unavailable ASHER Roblero Attending Unavailable Lucia Pandya Primary Care Unavailable Moodispaw, Alex Consulting Unavailable Koram, Kiki Ilda Consulting Unavailable Misha Bacon Attending Unavailable Natasha Barnard Attending Unavailable Misha Bacon Attending Unavailable Pandya, Lucia MoAnibal Primary Care Unavailable Misha Bacon Referring Unavailable Misha Bacon Admitting Unavailable Misha Bacon Attending Unavailable Pandya, M Anibal Referring Unavailable Misha Bacon Attending Unavailable Misha Bacon Referring Unavailable Pandya, M Anibal Primary Care Unavailable Misha Bacon Consulting Unavailable Pandya, M Anibal Primary Care Unavailable Bruce Garcia Attending Unavailable Misha Bacon Attending Unavailable Pandya, M Anibal Referring Unavailable Pandya, M Anibal Primary Care Unavailable Geovani Ashford Attending Unavailable Misha Bacon Referring Unavailable Misha Bacon Attending Unavailable Cachorro Domingo Attending Unavailable Pandya, Lucia Pond Referring Unavailable Misha Bacon Attending Unavailable Geovani Ashford Attending Unavailable Samuel Peralta Referring Unavailable Misha Bacon Attending Unavailable Misha Bacon Referring Unavailable Pandya, Lucia MoAnibal Primary Care Unavailable Erik Matt Attending Unavailable Misha Bacon Attending Unavailable Pandya, Lucia MoAnibal Referring Unavailable PROBLEMS PROBLEMS DATE TYPE CONDITION / CODE ATTENDING STATUS SOURCE 10/16/2018 Unknown R06.09 - Other forms Misha Bacon Active [facility] of dyspnea / Community R06.09(ICD-10) Hospital Repository 10/02/2018 Active Lumbago with sciatica, NA Active [place] left side / Clinic Other M54.42(ICD-10) [place] Repository 09/26/2018 Active Endocrine disorder, NA Active [place] unspecified / Clinic Main E34.9(ICD-10) [place] Repository 09/26/2018 Active Disorder of kidney and NA Active [facility] ureter, unspecified / Clinic Main N28.9(ICD-10) [facility] Repository 12/20/2012 Active Anemia, unspecified / NA Active [facility] D64.9(ICD-10) Clinic Main [place] Repository 09/25/2018 Active Hyperglycemia, NA Active [facility] unspecified / Clinic Main R73.9(ICD-10) [place] Repository 09/25/2018 Active Abnormal weight gain / NA Active [facility] R63.5(ICD-10) Clinic Main [place] Repository 09/25/2018 Active Pain in right hip / NA Active [facility] M25.551(ICD-10) Clinic Main [place] Repository 09/25/2018 Active Pain in left hip / NA Active [facility] M25.552(ICD-10) Clinic Main [place] Repository 08/03/2018 Active Atherosclerotic heart NA Active [place] disease of [place] [facility] Main coronary artery with [place] other forms of angina Repository pectoris / I25.118(ICD-10) 09/25/2018 Active 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 / Clinic Main R61(ICD-10) [place] Repository 08/30/2018 Unknown I25.10 - Misha Bacon Active [place] Atherosclerotic heart Community disease of [facility] coronary artery Repository without angina pectoris / I25.10(ICD-10) 08/30/2018 Unknown E78.5 - Misha Bacon Active [place] Hyperlipidemia, Community unspecified / Hospital E78.5(ICD-10) Repository 07/08/2018 Active Disorder of bone, [facility] unspecified / Clinic Main M89.9(ICD-10) [place] Repository 07/08/2018 Active Abnormal findings on [facility] diagnostic imaging of [facility] Main other parts of [place] musculoskeletal system Repository / R93.7(ICD-10) 06/28/2018 Active Monoclonal gammopathy [facility] / D47.2(ICD-10) Clinic Main [place] Repository 06/04/2018 Unknown R94.39 - Abnormal Misha Bacon Souleymane Bustos result of other [facility] function study / Repository R94.39(ICD-10) 06/04/2018 Unknown I10 - Essential Misha Bacon Souleymane [place]ust[place] (primary) hypertension Community / I10(ICD-10) Hospital Repository 06/04/2018 Unknown I25.110 - Larry Misha Active [place] Atherosclerotic heart Community disease of [facility] coronary artery with Repository unstable angina pectoris / I25.110(ICD-10) 05/22/2018 Unknown R07.9 - Chest pain, [place], [place] Active [facility] [facility] unspecified / Community R07.9(ICD-10) Hospital Repository 05/01/2018 Unknown R06.02 - Shortness of [place], Geovani Active [facility] breath / Community R06.02(ICD-10) Hospital Repository 02/22/2018 Active Obesity, unspecified / JESSI, Active [facility] E66.9(ICD-10) [facility] Other [place] Repository 02/22/2018 Active Chest pain, JESSI, Active [facility] unspecified / [facility] Other R07.9(ICD-10) [place] Repository 02/22/2018 Active Shortness of breath / JESSI, Active [place] R06.02(ICD-10) [facility] Other [place] Repository 02/21/2018 Active Anxiety disorder, JESSI, Active [place] unspecified / [facility] Other F41.9(ICD-10) [place] Repository 04/08/2018 Unknown R06.00 - Dyspnea, Schwiger, Pj Active [facility] [facility] unspecified / Community R06.00(ICD-10) Hospital Repository 02/20/2018 Active Mixed hyperlipidemia / NA Active [place] E78.2(ICD-10) [facility] Main [place] Repository 02/20/2018 Active Other longterm NA Active [place] (current) drug therapy [facility] Main / Z79.899(ICD-10) [place] Repository 02/20/2018 Active Pure hyperglyceridemia NA Active [place] / E78.1(ICD-10) [facility] Main [place] Repository 01/17/2018 Active Pain in right ankle NA Active [place] and joints of right [facility] foot / M25.571(ICD-10) [place] Repository PROCEDURES PROCEDURES No Procedure Records FoundRESULTS RESULTS OBSOLETE Observed: 10/24/2018 Status: COMPLETED Source: [place] 12:[address] [facility] REPOSITORY Refill (FAMPWS) TWIN NEWMAN ([id number]) 1965 M Date Time Provider Department 10/24/18 Lucia PANDYA) FAMPWS During your visit today, we recorded the following information about you: Marci Stapleton Ma 10/24/2018 8:31 AM Signed Patient has been identified by name and date of : Yes Pending Prescriptions Disp Refills LOSARTAN 100 MG-HYDROCHLOROTHIAZIDE 25 MG TABLET 90 tablet 0 Sig: Take 1 tablet by mouth once daily. GABRIELLE: No RX INSTRUCTIONS: Pharmacy initiated this request. No need to notify patient. Patient last office visit: 09/26/18 Patient next office visit: none scheduled Last Fill Date: 07/29/18; # 90, 0 refills Marci Stapleton Ma Allergies As of Date: 10/24/2018 Noted Allergy Reaction FLEXERIL (CYCLOBENZAPRINE HCL) 12/20/2012 8 - GI Upset TRAMADOL 12/16/2014 8 - GI Upset VICODIN (HYDROCODONE-ACETAMINOPHE*12/13/2009 8 - GI Upset Date Reviewed: 10/04/2018 Reviewed by: Kassy Evangelista Ct - Fully Assessed Reason for Visit: Refill Request [94] Order(s):losartan-hydrochlorothiazide (HYZAAR) 100-25 mg per tabletTake 1 tablet by mouth once daily.Disp: 90 tabletRfl: 0 Prescriptions as of 10/24/2018 Sig: LOSARTAN 100 MG-HYDROCHLOROTH* Take 1 tablet by mouth once d* LIDOCAINE 5 % TOPICAL PATCH Apply 1 Patch as directed jessica* POTASSIUM CHLORIDE ER 10 MEQ * Take 2 tablets by mouth daily* NYSTATIN 100,000 UNIT/GRAM TO* Apply 1 application to affect* BUSPIRONE 10 MG TABLET Take 1 tablet by mouth twice * ZOLPIDEM 10 MG TABLET Take 1 tablet by mouth daily * NICOTINE 10 MG INHALATION CAR* Inhale 1 Puff as instructed a* ASPIRIN 81 MG TABLET,DELAYED * Take 81 mg by mouth once kristen* ISOSORBIDE MONONITRATE ER 60 * Take 60 mg by mouth once kristen* RANOLAZINE ER 500 MG TABLET,E* Take 500 mg by mouth twice da* FLUTICASONE 44 MCG/ACTUATION * Inhale 1 Puff as instructed t* CPAP Initiate Auto PAP @ 5/20 cm o* PRAVASTATIN 20 MG TABLET Take 2 tablets by mouth daily* CARVEDILOL 25 MG TABLET TAKE 2 TABLETS BY MOUTH TWICE* Patient taking differently: TAKE 1 TABLET BY MOUTH TWICE * CLOPIDOGREL 75 MG TABLET Take 75 mg by mouth once kristen* NITROGLYCERIN 0.4 MG SUBLINGU* Dissolve 1 tablet under the t* TIZANIDINE 4 MG TABLET Take 1 tablet by mouth every * OMEPRAZOLE 40 MG CAPSULE,BRYNN* Take 1 capsule by mouth once * VENTOLIN HFA 90 MCG/ACTUATION* INHALE 2 PUFFS INSTRUCTED * Problem List As Of Date 10/24/2018 Noted Resolved Dysuria [R30.0] INVALID FOR*04/11/2018 Prostatitis, unspecified [N41.9] INVALID FOR*12/11/2016 TOBACCO USE DISORDER [F17.200] ESOPHAGEAL REFLUX [K21.9] Chronic depression [F32.9] JOINT PAIN-FOREARM [M25.539] INVALID FOR* GANGLION UNSPECIFIED [M67.40] INVALID FOR* HEMORRHOIDS EXTERNAL THROMBOSED [K64.5] INVALID FOR* Postoperative pain, acute, groin, right [R10.31* More... Unspecified Essential Hypertension [I10] Abdominal Pain, Epigastric [R10.13] Nausea AND Vomiting [R11.2] Sprain and strain of unspecified site of foot [*INVALID FOR* Pain in limb [M79.609] INVALID FOR* Enthesopathy of ankle and tarsus, unspecified [*INVALID FOR* 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 Hypertension goal BP (blood pressure) < 140/90 * 04/11/2018 Hyperlipidemia [E78.5] Inflamed skin tag [L91.8] INVALID FOR*12/11/2016 CECILY (obstructive sleep apnea) [G47.33] INVALID FOR* More... Left-sided low back pain with left-sided sciati*INVALID FOR* Left buttock pain [M79.18] INVALID FOR* Ischial bursitis of left side [M70.72] INVALID FOR* Gallbladder polyp [K82.4] INVALID FOR* Internal hemorrhoids [K64.8] INVALID FOR* Diverticulosis of large intestine without hemor*INVALID FOR* Hyperplastic colonic polyp [K63.5] INVALID FOR* Difficult intubation [T88.4XXA] INVALID FOR* Difficult airway [T88.4XXA] INVALID FOR* More... Primary osteoarthritis of both hips [M16.0] INVALID FOR* Piriformis syndrome, left [G57.02] INVALID FOR* Trochanteric bursitis of both hips [M70.61, M70*INVALID FOR* Chest pain [R07.9] INVALID FOR*02/22/2018 More... SOB (shortness of breath) [R06.02] INVALID FOR*02/22/2018 More... Obesity, Class II, BMI 35-39.9 [E66.9] INVALID FOR* S/P primary angioplasty with coronary stent [Z9*INVALID FOR* Coronary artery disease of [place] artery of mally*INVALID FOR* More... MGUS (monoclonal gammopathy of unknown signific*INVALID FOR* Lumbar spinal stenosis [M48.061] INVALID FOR* More... Gammopathy, monoclonal [D47.2] INVALID FOR* More... Lumbar facet arthropathy [M47.816] INVALID FOR* DDD (degenerative disc disease), lumbar [M51.36]INVALID FOR* Arthritis of hip [M16.10] INVALID FOR* More... Prescriptions ordered this encounter Disp Refills Start End LOSARTAN 100 MG-HYDROCHLOROTHIAZIDE * 90 t* 0 10/24/2018 Route: ORAL Sig: Take 1 tablet by mouth once daily. Medications Discontinued During This Encounter losartan-hydrochlorothiazide (HYZAAR* 90 t* 0 07/29/2018 10/24/2018 Sig: TAKE 1 TABLET BY MOUTH ONCE DAILY. Disc: Reason for discontinue is not on file. Encounter Status:Closed by Lucia PANDYA PA-C on 10/24/18 DISCHARGE INSTRUCTION Observed: 10/17/2018 Status: F Source: [place] 12:33 PM [facility] REPOSITORY [facility] Medical Records Department [address] [place] [place] [id number] Discharge Instruction 10/17/18 1232 MR#: [id number] Acct: [id number] Name: TWIN NEWMAN Rep #: [id number] : 1965 53 From: Praveen Castaneda DO PCP: Lucia Pandya Status: REG ER ED Disposition - Plan for ED Patient: Chief Complaint: Lower Extremity Injury Instructions: ED Sprain Hip, Understanding Chronic Pain, Osteoarthritis: Injections or Surgery Referrals: Lucia Pandya PA [Primary Care Provider] - Seamus Roy DO [STAFF PHYSICIAN] - 1-2 Days if not improving What to do if you have Problems For any increased pain, shortness of breath, bleeding, nausea or vomiting, chest pain, or any unexpected problems, contact your Primary Care Provider. Call [facility] ([phone]) or report to the closest Emergency Room. Call 911 if necessary. 10/17/18 1233 <Electronically signed by Praveen Castaneda DO> Date Praveen Castaneda DO Cosigner Signature (If Indicated): Date CC: Lucia Pandya EMERGENCY DEPARTMENT Observed: 10/17/2018 Status: F Source: [place] SUMMARY 12:32 PM [facility] REPOSITORY [facility] Medical Records Department [address] [place] [address] Emergency Department Summary 10/17/18 1229 MR#: [id number] Acct: [id number] Name: TWIN NEWMAN Rep #: [id number] : 1965 53 From: Praveen Castaneda DO PCP: Lucia Pandya Status: REG ER - ER Visit Summary Date of Service: 10/17/18 Chief Complaint: [Left hip pain] History of Present Illness: The patient is a 53 M [presents to the emergency department complaint of pain in his left hip that he has had chronically for some time. Patient is currently in pain management and is being treated for bursitis. Patient has a history of degenerative arthritis of both hips. Patient also sees orthopedics Dr. Seamus Roy. Patient had an appointment today with nurse practitioner for Dr. Roy however he did not feel he could wait and came to the emergency department instead. Patient states that since last night it feels like his left hip keeps popping and causes him severe pain towards the center of his back. Patient denies any new injuries or falls. Patient has pain with standing or bearing weight on the hip however at rest does not have any pain.] Physical Examination: [HEENT-PERRLA, EOMI. Cranial nerves II through XII grossly intact. TMs clear. Mucous membranes moist. No adenopathy. Cardiovascular-regular rate and rhythm without murmur or ectopy Lungs-clear to auscultation, chest wall stable without crepitus or subcu emphysema Abdomen-normoactive bowel sounds, soft, nontender, no rebound or rigidity, no peritoneal signs. Extremities-intact 4, normal range of motion, normal pulses, atraumatic. Left hip-patient has pain with range of motion in the hip however there is no deformity noted. No evidence for dislocation. He is neurovascular intact with normal station normal cap refill.] There is no erythema or warmth noted over the hip. Test Results: [X-rays of the left hip were obtained as was the pelvis which showed degenerative changes and bilateral femoral acetabular impingement.] Emergency Department Course and Treatment: [Patient denies anything for pain here] Treatment Plan: [Case was discussed with Dr. Seamus Roy who stated that they can see the patient either today or tomorrow for follow-up. Patient does not want anything for pain for home. As he has Percocet.] Disposition: [Discharged home in stable condition] Impression: [Acute exacerbation of chronic left hip pain] This note was generated with Fleksy dictation software. It may contain incorrect words, spelling, and punctuation that were not noted in review of the chart prior to signing ED Disposition - Plan for ED Patient: Chief Complaint: Lower Extremity Injury Referrals: Lucia Pandya PA [Primary Care Provider] - What to do if you have Problems For any increased pain, shortness of breath, bleeding, nausea or vomiting, chest pain, or any unexpected problems, contact your Primary Care Provider. Call [facility] ([phone]) or report to the closest Emergency Room. Call 911 if necessary. 10/17/18 1232 <Electronically signed by Praveen Castaneda DO> Date Praveen Castaneda DO Cosigner Signature (If Indicated): Date CC: Lucia Pandya HIP, UNI W/ PELVIS Observed: 10/17/2018 Status: F Source: [place] 2-3 VIEWS 10:09 AM [facility] REPOSITORY [facility] Imaging Services [address] [place] [address] HIP, UNI W/ Pelvis 2-3 Views MR#: [id number] Acct: [id number] Name: TWIN NEWMAN Rep #: [id number] : 1965 M 53 From: Nakul Painter MD PCP: Lucia Pandya Status: REG ER Study: HIP, UNI W/ Pelvis 2-3 Views Date of Exam: 10/17/18 Exam# [id number] Ordering Dr: Praveen Castaneda DO STUDY: X-RAY - LEFT HIP REASON FOR EXAM: Male, 53 years old. Increasing left hip pain. TECHNIQUE: 2 views of the hip. COMPARISON: None. FINDINGS: Degenerative changes of the sacroiliac joints bilaterally worse on the right side. There is widening of the femoral neck of the right and left femurs. A component of femoral acetabular impingement should be ruled out. Normal acetabulum. There is moderate articular joint space narrowing. Normal visualized superior and inferior pubic rami and ischial tuberosities. 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 Electronically Signed: Nakul Painter MD at 11:16 EST Tel [phone], Service support , CC: Lucia Pandya; Praveen Castaneda DO Assembly Adjuster: Signed ECHOCARDIOGRAM COMPLETE Observed: 10/16/2018 Status: F Source: [place] 4:20 PM [facility] REPOSITORY [facility] Cardiovascular Services [address] [place] [address] Echo Complete 10/15/18 1038 MR#: [id number] Acct: [id number] Name: TWIN NEWMAN Rep #: [id number] : 1965 53 From: Misha Bacon MD Attending Dr: Krystina Bartholomew Status: REG CLI Ordering Dr: Krystina Bartholomew Date: 10/15/18 Location: [facility] Sex: M C Admitted: Reason For Study: DYSPNEA Procedure This was a 2D Doppler, Color Flow transthoracic echocardiogram. The study was technically difficult. Exam performed in department. Left Ventricle Moderate concentric left ventricular hypertrophy. The estimated ejection fraction is 75 %. Stage 1 diastolic dysfunction. Intra cavitary gradient of 25 mm HG. No regional wall motion abnormalities noted. Right Ventricle Normal size and thickness. Normal systolic function. Atria Normal left atrium. Normal right atrium. Normal atrial septum. Mitral Valve The mitral valve is structurally normal. No prolapse or stenosis seen. Tricuspid Valve Normal tricuspid valve. Unable to estimate RV systolic pressure due to inadequate jet, pulmonary artery pressure probably normal. Aortic Valve Normal aortic valve. Trisinus/trileaflet aortic valve. Pulmonic Valve Normal pulmonic valve. Great Vessels Normal aortic root. Normal arch. Normal inferior vena cava. Inferior vena cava collapse with sniff. Pericardium/Pleural No pericardial effusion. MMode/2D Measurements AND Calculations LVIDd: 4.5 cm IVSd: 1.7 cm Ao root diam: 3.8 cm LVIDs: 2.4 cm LVPWd: 1.5 cm RVDd: 2.7 cm FS: 47.3 % LAV(MOD-bp): 53.1 ml EDV(MOD-sp4): 99.1 ml EDV(MOD-sp2): 56.0 ml LAV(MOD-bp) Indexed: 23.5 ml/m2 ESV(MOD-sp4): 30.9 ml LAV(MOD-sp2): 47.1 ml EF(MOD-sp4): 68.8 % LAV(MOD-sp4): 58.3 ml SV(MOD-sp4): 68.1 ml LA dimension(2D): 4.2 cm LA A4 area: 19.3 cm2 RA A4 area: 11.1 cm2 Time Measurements MV dec time: 0.34 sec Doppler Measurements AND Calculations MV E max ana maría: 54.4 cm/sec Lat Peak E' Ana María: 4.7 cm/sec Med Peak E' Ana María: 4.6 cm/sec MV A max ana maría: 64.1 cm/sec E/E' lat: 11.6 E/E' med: 11.9 MV E/A: 0.85 Ao V2 max: 206.2 cm/sec LV V1 max: 163.3 cm/sec PA V2 max: 137.5 cm/sec Ao max P.0 mmHg LV V1 max P.7 mmHg Interpretation Summary Moderate concentric left ventricular hypertrophy. The estimated ejection fraction is 75 %. Stage 1 diastolic dysfunction. Intra cavitary gradient of 25 mm HG. Unable to estimate RV systolic pressure due to inadequate jet, pulmonary artery pressure probably normal. There is no comparison study available. Ordering Physician: Krystina Bartholomew/Misha Bacon Referring Physician: Lucia PANDYA Performed By: Darshana Ponce, ANAY, RVT 10/16/181618 Date Misha Bacon MD CC: Lucia Pandya; Krystina Bartholomew Date Dictated: 10/15/18 1038 Date Transcribed: 10/16/181618 Assembly Adjuster: Signed LU Observed: 10/10/2018 Status: COMPLETED Source: [place] 12:[address] [facility] REPOSITORY Telephone (FAMPWS) TWIN NEWMAN ([id number]) 1965 M Date Time Provider Department 10/10/18 [facility] PANDYA[facility] During your visit today, we recorded the following information about you: Kerri Ruvalcaba [employer] 10/10/2018 2:12 PM Signed Patient states that insurance is going to deny bariatic surgery/consult because if it coded as obesity. Is asking that it be coded as an illness, est heart disease, trouble breathing. See Dr. Bacon and so if you need to speak with him to get a dx Twin said that would be ok. Lucia Pandya PA-C 10/10/2018 3:47 PM Signed revised per request Telephone on 10/10/18 -[facility] Ceron PA-C 10/10/2018 3:47 PM Signed Addended by: Lucia PANDYA PA-C on: 10/10/2018 03:47 PM Modules accepted: Orders Allergies As of Date: 10/10/2018 Noted Allergy Reaction FLEXERIL (CYCLOBENZAPRINE HCL) 12/20/2012 8 - GI Upset TRAMADOL 12/16/2014 8 - GI Upset VICODIN (HYDROCODONE-ACETAMINOPHE*12/13/2009 8 - GI Upset Date Reviewed: 10/04/2018 Reviewed by: Kassy Evangelista Ct - Fully Assessed Reason for Visit: Referral Request [124] Primary Visit Diagnosis:Obesity, Class II, BMI 35-39.9 [E66.9] Other Visit Diagnosis:Coronary artery disease of [place] artery of [place] heart with stable angina pectoris (HCC) [I25.118] Order(s):[facility] [[id number]] Order #: [id number]: 1 Prescriptions as of 10/10/2018 Sig: LIDOCAINE 5 % TOPICAL PATCH Apply 1 Patch as directed jessica* POTASSIUM CHLORIDE ER 10 MEQ * Take 2 tablets by mouth daily* NYSTATIN 100,000 UNIT/GRAM TO* Apply 1 application to affect* LOSARTAN 100 MG-HYDROCHLOROTH* TAKE 1 TABLET BY MOUTH ONCE D* BUSPIRONE 10 MG TABLET Take 1 tablet by mouth twice * ZOLPIDEM 10 MG TABLET Take 1 tablet by mouth daily * NICOTINE 10 MG INHALATION CAR* Inhale 1 Puff as instructed a* ASPIRIN 81 MG TABLET,DELAYED * Take 81 mg by mouth once kristen* ISOSORBIDE MONONITRATE ER 60 * Take 60 mg by mouth once kristen* RANOLAZINE ER 500 MG TABLET,E* Take 500 mg by mouth twice da* FLUTICASONE 44 MCG/ACTUATION * Inhale 1 Puff as instructed t* CPAP Initiate Auto PAP @ 5/20 cm o* PRAVASTATIN 20 MG TABLET Take 2 tablets by mouth daily* CARVEDILOL 25 MG TABLET TAKE 2 TABLETS BY MOUTH TWICE* Patient taking differently: TAKE 1 TABLET BY MOUTH TWICE * CLOPIDOGREL 75 MG TABLET Take 75 mg by mouth once kristen* NITROGLYCERIN 0.4 MG SUBLINGU* Dissolve 1 tablet under the t* TIZANIDINE 4 MG TABLET Take 1 tablet by mouth every * OMEPRAZOLE 40 MG CAPSULE,BRYNN* Take 1 capsule by mouth once * VENTOLIN HFA 90 MCG/ACTUATION* INHALE 2 PUFFS INSTRUCTED * Problem List As Of Date 10/10/2018 Noted Resolved Dysuria [R30.0] INVALID FOR*04/11/2018 Prostatitis, unspecified [N41.9] INVALID FOR*12/11/2016 TOBACCO USE DISORDER [F17.200] ESOPHAGEAL REFLUX [K21.9] Chronic depression [F32.9] JOINT PAIN-FOREARM [M25.539] INVALID FOR* GANGLION UNSPECIFIED [M67.40] INVALID FOR* HEMORRHOIDS EXTERNAL THROMBOSED [K64.5] INVALID FOR* Postoperative pain, acute, groin, right [R10.31* More... Unspecified Essential Hypertension [I10] Abdominal Pain, Epigastric [R10.13] Nausea AND Vomiting [R11.2] Sprain and strain of unspecified site of foot [*INVALID FOR* Pain in limb [M79.609] INVALID FOR* Enthesopathy of ankle and tarsus, unspecified [*INVALID FOR* 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 Hypertension goal BP (blood pressure) < 140/90 * 04/11/2018 Hyperlipidemia [E78.5] Inflamed skin tag [L91.8] INVALID FOR*12/11/2016 CECILY (obstructive sleep apnea) [G47.33] INVALID FOR* More... Left-sided low back pain with left-sided sciati*INVALID FOR* Left buttock pain [M79.18] INVALID FOR* Ischial bursitis of left side [M70.72] INVALID FOR* Gallbladder polyp [K82.4] INVALID FOR* Internal hemorrhoids [K64.8] INVALID FOR* Diverticulosis of large intestine without hemor*INVALID FOR* Hyperplastic colonic polyp [K63.5] INVALID FOR* Difficult intubation [T88.4XXA] INVALID FOR* Difficult airway [T88.4XXA] INVALID FOR* More... Primary osteoarthritis of both hips [M16.0] INVALID FOR* Piriformis syndrome, left [G57.02] INVALID FOR* Trochanteric bursitis of both hips [M70.61, M70*INVALID FOR* Chest pain [R07.9] INVALID FOR*02/22/2018 More... SOB (shortness of breath) [R06.02] INVALID FOR*02/22/2018 More... Obesity, Class II, BMI 35-39.9 [E66.9] INVALID FOR* S/P primary angioplasty with coronary stent [Z9*INVALID FOR* Coronary artery disease of [place] artery of [place]*INVALID FOR* More... MGUS (monoclonal gammopathy of unknown signific*INVALID FOR* Lumbar spinal stenosis [M48.061] INVALID FOR* More... Gammopathy, monoclonal [D47.2] INVALID FOR* More... Lumbar facet arthropathy [M47.816] INVALID FOR* DDD (degenerative disc disease), lumbar [M51.36]INVALID FOR* Arthritis of hip [M16.10] INVALID FOR* More... Encounter Status:Closed by Lucia PANDYA PA-C on 10/10/18 12 LEAD ELECTROCARDIOGRAM Observed: 10/02/2018 Status: F Source: [place] 2:33 PM [facility] REPOSITORY [facility] Cardiovascular Services [address] [place] [id number] 12 Lead EKG 09/29/18 1907 MR#: [id number] Acct: [id number] Name: TWIN NEWMAN Rep #: [id number] : 1965 53 From: Alex Figueroa MD Attending Dr: Status: DEP ER Ordering Dr: Van Christian MD Date: 09/29/18 Location: ED Sex: M C Admitted: Test Reason : SOB Blood Pressure : / mmHG Vent. Rate : 067 BPM Atrial Rate : 067 BPM P-R Int : 186 ms QRS Dur : 098 ms QT Int : 400 ms P-R-T Axes : 056 061 037 degrees QTc Int : 422 ms Normal sinus rhythm Normal ECG Confirmed by REGIS OLEARY, ALEX ([id number]), deputy editor in chief YORDY BOWDEN ([id number]) on 10/02/2018 2:32:55 PM Referred By: MARCELO Confirmed By:ALEX FIGUEROA MD 10/02/18 1433 Date Alex Figueroa MD CC: Lucia Pandya; Van Christian MD Signed ED NOTE Observed: 10/02/2018 Status: COMPLETED Source: [place] 1:41 PM [facility] OTHER CAMPUS REPOSITORY HNO ID: [id number] Author: Brittanie (Rn) KATIUSKA Candelaria Service: Nursing Author Type: Registered Nurse Type: ED Notes Filed: 10/02/2018 1:42 PM Note Text: Discharge instructions reviewed with patient and spouse. All questions answered. Pt leaving ambulatory with [address] ABD/PEL W IVCON Observed: 10/02/2018 Status: F Source: [place] 12:37 PM [facility] OTHER CAMPUS REPOSITORY * * *Final Report* * * DATE OF EXAM: Oct 02 2018 12:37PM [facility] 0530 - CT ABD/PEL W IVCON / PROCEDURE REASON: Infection, abdomen-pelvis * * * * Physician Interpretation * * * * EXAMINATION: CT ABDOMEN AND PELVIS WITH IV CONTRAST CLINICAL HISTORY: Infection, abdomen-pelvis, BACK PAIN, HIP PAIN, NO INJURY OR TRAUMA TECHNIQUE: CT of the abdomen and pelvis was performed using standard technique, scanning from just above the dome of the diaphragm to the symphysis pubis. MQ: CTAP_3 Contrast: IV: 150 ml of Omnipaque 300 Oral: None. CT Radiation dose: Integrated Dose-length product (DLP) for this visit = mGy*cm. CT Dose Reduction Employed: Automated exposure control (AEC) COMPARISON: CT abdomen and pelvis of 12/24/2016. RESULT: Liver: Unremarkable. Biliary: No bile duct dilation. Gallbladder is absent. Spleen: No mass. No splenomegaly. Pancreas: No mass or duct dilation. Adrenals: There is mild hypertrophy of the left adrenal gland, unchanged. The right adrenal gland is unremarkable. Kidneys: No mass, calculus or hydronephrosis. GI tract: There is no bowel wall thickening or dilatation. The terminal ileum is unremarkable. The appendix is not clearly visualized but there is no secondary evidence of an acute appendicitis. There is no evidence to suggest diverticulitis. Lymph nodes: There are few stable prominent upper abdominal lymph nodes. Mesentery/Peritoneum: No ascites or mass. Retroperitoneum: No mass. Vasculature: The celiac axis and SMA are patent. The portal vein and branches, splenic vein, SMV, and hepatic veins are patent. Arterial atherosclerotic disease without aneurysm. Pelvis: No mass, ascites or fluid collection. Bones/Soft Tissues: No acute fracture or subluxation. No lytic or blastic osseous lesion. Mild degenerative changes of bilateral hip joints, sacroiliac joints, and lower lumbar spine. Lower thorax: Unremarkable. IMPRESSION: NO ACUTE ABDOMINAL/PELVIC PROCESS. Assembly Adjuster: PSCB Transcribe Date/Time: Oct 02 2018 12:40P Dictated by : JOSHUA CASILLAS MD This examination was interpreted and the report reviewed and electronically signed by: JOSHUA CASILLAS MD on Oct 02 2018 12:56PM EST [id number] CT LUMBAR SPINE WO Observed: 10/02/2018 Status: F Source: [place] IVCON 12:37 PM [facility] OTHER CAMPUS REPOSITORY * * *Final Report* * * DATE OF EXAM: Oct 02 2018 12:37PM [facility] 0508 - CT LUMBAR SPINE WO IVCON / PROCEDURE REASON: Radiculopathy, minor trauma * * * * Physician Interpretation * * * * EXAMINATION: CT LUMBAR SPINE WO IVCON CLINICAL HISTORY: Back pain, hip pain. TECHNIQUE: Spiral, high resolution axial images were obtained from the thoracolumbar junction to the sacrum with sagittal and coronal planar reconstructions. MQ: [id number]_3 Dose-Length Product (DLP): 790 mGy*cm. CT Dose Reduction Employed: Automated exposure control (AEC) COMPARISON: Images from prior outside MRI dated 07/11/2018. RESULT: Counting reference: Lumbosacral junction. For the purposes of this report, L4-5 is considered the level of the iliac crest and there are 5 lumbar-type vertebrae. Anatomic Variants: None. Alignment: Alignment is anatomic. Bone marrow /fracture: No evidence of a lytic or blastic process in the visualized spine. No evidence of acute or chronic fracture. There are laminectomies at L3-L5. Paraspinal soft tissues: The paraspinal soft tissues planes are maintained. Atherosclerosis involves the descending aorta and its branches. Lower thoracic spine: The visualized lower thoracic bony canal and foramina are patent. T12-L1: Canal and foramina are patent. L1-L2: Canal and foramina are patent. L2-L3: Canal and foramina are patent L3-L4: Mild bulging annulus and mild facet degenerative change. L4-L5: Mild bulging annulus and mild facet degenerative change. Mild bilateral foraminal narrowing. No canal stenosis. Noted sequestered disc fragment involving the right L4 lateral recess is not well assessed on noncontrast CT. Some slight narrowing of the right subarticular zone appears present. L5-S1: Mild bulging annulus and mild facet degenerative change noted. Mild bilateral foraminal narrowing. No canal stenosis. Sacrum and iliac wings: The visualized sacrum and iliac wings are within normal limits. Overall, no significant interval change accounting for differences in imaging technique when compared to the prior MRI. IMPRESSION: Laminectomies at L3 L5 with degenerative changes, as fully detailed above. Of note, previously reported sequestered disc fragment from prior MRI dated 07/11/2018 is not well assessed on noncontrast CT. Anatomic Thoracic/Lumbar Variant: None. L4-5 is considered the level of the iliac crest and assume there are 5 lumbar-type vertebrae. Assembly Adjuster: [facility] Transcribe Date/Time: Oct 02 2018 12:48P Dictated by : CHELI ROBLES MD This examination was interpreted and the report reviewed and electronically signed by: CHELI ROBLES MD on Oct 02 2018 1:08PM EST [id number] ED NOTE Observed: 10/02/2018 Status: COMPLETED Source: [place] 12:36 PM [facility] OTHER CAMPUS REPOSITORY HNO ID: [id number] Author: Brittanie (Rn) KATIUSKA Candelaria Service: Nursing Author Type: Registered Nurse Type: ED Notes Filed: 10/02/2018 12:36 PM Note Text: Pt to and from xray with no change in condition CBC AND DIFFERENTIAL Collected: 10/02/2018 Status: F Source: [place] 11:45 AM [facility] OTHER CAMPUS REPOSITORY TYPE CODE TESTS RESULT OUT OF REFERENCE UNITS RANGE LAB WBC 3.70-11.00 k/uL WBC 6.75 LAB RBC 4.20-6.00 m/uL RBC 4.48 LAB HGB 13.0-17.0 g/dL Hemoglobin 14.3 LAB HCT 39.0-51.0 % Hematocrit 43.7 LAB MCV 80.0-100.0 fL MCV 97.5 LAB MCH 26.0-34.0 pG MCH 31.9 LAB MCHC 30.5-36.0 g/dL MCHC 32.7 LAB RDWCV 11.5-15.0 % RDW-CV High 15.1 LAB PLTCT 150-400 k/uL Platelet Count 192 LAB MPV 9.0-12.7 fL Low MPV 8.7 LAB ANEUT % Neut% 58.8 LAB AANEUT 1.45-7.50 k/uL Abs Neut 3.97 LAB ALYMP % Lymph% 32.6 LAB AALYMP 1.00-4.00 k/uL Abs Lymph 2.20 LAB AMONO % Brule% 5.3 LAB AAMONO <0.87 k/uL Abs Brule 0.36 LAB AEOS % Eosin% 3.0 LAB AAEOS <0.46 k/uL Abs Eosin 0.20 LAB ABASO % Baso% 0.3 LAB AABASO <0.11 k/uL Abs Baso <0.03 Performed By: #### CBCDIF, CMP #### [facility] [address] [place] [address] COMP METABOLIC PANEL Collected: 10/02/2018 Status: F Source: [place] 11:45 AM [facility]IN[facility] OTHER CAMPUS REPOSITORY TYPE CODE TESTS RESULT OUT OF REFERENCE UNITS RANGE LAB TP 6.3-8.0 g/dL Protein, Total 7.2 LAB ALB 3.9-4.9 g/dL Albumin 3.9 LAB CA 8.5-10.2 mg/dL Calcium, Total 9.6 LAB TBIL 0.2-1.3 mg/dL Bilirubin, Total 0.3 LAB ALKP 38-113 U/L Alkaline Phosphatase 72 LAB AST 14-40 U/L AST 15 LAB GLU 74-99 mg/dL Glucose High 150 Result Comment: The [place] Diabetes Association (ADA) provides guidance for cutoff values for fasting glucose and random glucose. The ADA defines fasting as no caloric intake for at least 8 hours. Fas ting plasma glucose results between 100 to 125 mg/dL indicate increased risk for diabetes (prediabetes). Fasting plasma glucose results greater than or equal to 126 mg/dL meet the criteria for diagnosis of diabetes. In the absence of unequivocal hyperglycemia, results should be confirmed by repeat testing. In a patient with classic symptoms of hyperglycemia or hyperglycemic crisis, random plasma glucose results greater than or equal to 200 mg/dL meet the criteria for diagnosis of diabetes. Reference: Standards of Medical Care in Diabetes 2016, [place] [employer] Association. Diabetes Care. 2016.39(Suppl 1). LAB BUN 9-24 mg/dL BUN 21 LAB CRET 0.73-1.22 mg/dL Creatinine 0.93 LAB NA 136-144 mmol/L Sodium 138 LAB K 3.7-5.1 mmol/L Potassium Low 3.6 LAB CL 97-105 mmol/L Chloride 99 LAB CO2 22-30 mmol/L CO2 28 LAB AGAP 9-18 mmol/L Anion Gap 11 LAB ALT 10-54 U/L ALT 17 LAB GFRAA eGFR- Amer. >60 LAB GFRNAA . eGFR-All Other Races >60 Result Comment: eGFR (Estimated GFR) Units of measure: mL/min/1.73 meters squared eGFR is derived from the reexpressed MDRD Study equation using the following parameters: serum creatinine, age, gender and race. The creatinine assay has been calibrated to be traceable to IDMS. An eGFR <60 mL/min/1.73m2 for >3 months is consistent with chronic kidney disease. Refer to KDOQI guidelines for clinical interpretation. In patients with unstable renal function, e.g. those with acute kidney injury, the eGFR may not accurately reflect actual GFR. Performed By: #### CBCDIF, CMP #### [facility] [address] [facility] [phone] ED PROV NOTE Observed: 10/02/2018 Status: COMPLETED Source: [place] 11:27 AM CLINIC OTHER CAMPUS REPOSITORY O ID: [id number] Author: Romario Lopez (Pa) Service: Emergency Medicine Author Type: Physician Metal Flow Coordinator Type: ED Provider Notes Filed: 10/02/2018 1:25 PM Note Text: ED Provider Note Patient Name: Twin Newman SERVICE DATE: 10/02/18 History Patient presents with: Low Back Pain Hip Pain: bilateral 53 year old male with a past medical history of hypertension, sleep apnea, hyperlipidemia, depression, and chronic abdominal pain, chronic low back pain, presents to the emergency department today with worsening low back pain that radiates to bilateral hips all the way down the legs. Patient states over last couple days the pain has progressively worsened and he is unable to tolerate the pain despite taking Percocet. In addition over the last week he has had worsening abdominal distention. He is scheduled for a CT of the abdomen to rule out tumor however due to pain patient cannot wait until October 08 for this. He denies any nausea or vomiting. Denies any fever or chills. Denies any saddle paresthesia. Denies any trauma to the back. Denies any bowel or urinary incontinence. . PAST MEDICAL HISTORY Diagnosis Date - Abdominal pain, epigastric - Abdominal pain, unspecified site - Anemia - Depressive disorder, not elsewhere classified - Difficult airway 02/05/2017 could not intubate could not ventilate - Difficult intubation 02/05/2017 - DVT (deep venous thrombosis) (HCC) 11/27/12 of right calf - Esophageal reflux - Gallbladder polyp - Hyperlipidemia 2011 - Hypertension - Insomnia - MGUS (monoclonal gammopathy of unknown significance) - Nausea AND vomiting - CECILY (obstructive sleep apnea) 01/25/2015 - Snoring - Stroke (HCC) - Tobacco use disorder - Transient ischemic attack (TIA) - Unspecified essential hypertension PAST SURGICAL HISTORY Procedure Laterality Date - CARPAL TUNNEL Bilateral 2015 - CHOLECYSTECTOMY 04/02/2017 laparoscopic cholecystectomy with cholangiograms R Cebul - COLONOSCOP W/ OR W/O BRSH SPEC Colonoscopy - COLONOSCOPY 01/02/2017 - EGD W/O BRSH SPECIMEN W/BX 04/04/07 - EGD W/O OR W/BRUSH/WASH 01/03/2013 EGD - G-ESOPH REFLX TST W/ELECTROD 04/04/07 - PAST SURGICAL HISTORY OF excision lymph node - PAST SURGICAL HISTORY OF vasectomy - PAST SURGICAL HISTORY OF 2009 left knee surgery - PAST SURGICAL HISTORY OF 2011 right foot surgery - PAST SURGICAL HISTORY OF Left 2016 knee surgery, fillers used FAMILY HISTORY Problem Relation Age of Onset - Cancer Mother kidney - Cancer Father brain - Cancer Brother testicle - Cancer Sister non hodgkins lymphoma Social History Social History Main Topics - Smoking status: Current Every Day Smoker Packs/day: 0.50 Years: 33.00 Types: Cigarettes - Smokeless tobacco: Never Used - Alcohol use No - Drug use: No - Sexual activity: Yes Partners: Female control/ protection: Surgical ALLERGIES Allergen Reactions - Flexeril [Cyclobenz* GI Upset - Tramadol GI Upset - Vicodin [Hydrocodon* GI Upset Review of Systems Constitutional: Negative for chills and fever. HENT: Negative for congestion, drooling, ear pain, mouth sores, sinus pressure, sore throat, tinnitus and trouble swallowing. Eyes: Negative for photophobia and visual disturbance. Respiratory: Negative for cough, chest tightness, shortness of breath and wheezing. Cardiovascular: Negative for chest pain and palpitations. Gastrointestinal: Positive for abdominal distention and abdominal pain. Negative for anal bleeding, constipation, nausea and vomiting. Genitourinary: Negative for dysuria, flank pain and hematuria. Musculoskeletal: Positive for back pain. Negative for arthralgias, gait problem, neck pain and neck stiffness. Skin: Negative for color change. Neurological: Negative for dizziness, seizures and numbness. Psychiatric/Behavioral: Negative for agitation and confusion. The patient is not nervous/anxious. Physical Exam BP 163/95 Pulse 69 Temp (Src) 98.4 (Oral) Resp 16 Wt 245 lb (111.1kg) SpO2 95% Physical Exam Constitutional: He is oriented to person, place, and time. He appears well-developed and well-nourished. HENT: Head: Normocephalic and atraumatic. Head is without raccoon's eyes and without Shah's sign. Right Ear: Hearing normal. Left Ear: Hearing normal. Nose: Right sinus exhibits no maxillary sinus tenderness and no frontal sinus tenderness. Left sinus exhibits no maxillary sinus tenderness and no frontal sinus tenderness. Eyes: Conjunctivae and EOM are normal. Neck: Normal range of motion. Neck supple. Cardiovascular: Normal rate. Pulmonary/Chest: Effort normal. Abdominal: Soft. He exhibits distension. He exhibits no mass. There is no tenderness. There is no rebound and no guarding. No hernia. Musculoskeletal: Normal range of motion. Cervical back: Normal. Thoracic back: Normal. Lumbar back: He exhibits tenderness and pain. He exhibits normal range of motion, no bony tenderness, no swelling, no edema, no deformity, no laceration, no spasm and normal pulse. TTP over the paraspinal musculature in both the left and right lumbar region. There is no obvious deformity noted on exam. FROM with both lower extremities. Sensation intact with both lower extremities. Patient is neurovascularly intact, cap refill 2 plus. Neurological: He is alert and oriented to person, place, and time. He displays no atrophy and no tremor. He displays a negative Romberg sign. He displays no seizure activity. Gait normal. Skin: Skin is warm and dry. Psychiatric: He has a normal mood and affect. His behavior is normal. Diagnostic Testing ED Labs Ordered and Reviewed - No data to display CT LUMBAR SPINE WO IVCON Final Result IMPRESSION: Laminectomies at L3 L5 with degenerative changes, as fully detailed above. Of note, previously reported sequestered disc fragment from prior MRI dated 07/11/2018 is not well assessed on noncontrast CT. Anatomic Thoracic/Lumbar Variant: None. L4-5 is considered the level of the iliac crest and assume there are 5 lumbar-type vertebrae. Assembly Adjuster: PSCB Transcribe Date/Time: Oct 02 2018 12:48P Dictated by : CHELI ROBLES MD This examination was interpreted and the report reviewed and electronically signed by: CHELI ROBLES MD on Oct 02 2018 1:08PM EST CT ABD/PEL W IVCON Final Result IMPRESSION: NO ACUTE ABDOMINAL/PELVIC PROCESS. Assembly Adjuster: DIDI Transcribe Date/Time: Oct 02 2018 12:40P Dictated by : JOSHUA CASILLAS MD This examination was interpreted and the report reviewed and electronically signed by: JOSHUA CASILLAS MD on Oct 02 2018 12:56PM EST Procedures ED Course / Clinical Impression Clinical Impressions as of Oct 02 1324 Acute left-sided low back pain with left-sided sciatica (M54.42) Acute left-sided low back pain with left-sided sciatica (primary encounter diagnosis) Comment: acute Plan: Lidoderm patch See pcp See pain management See spine surgeon Home pain meds Rest Return to ed if sx worsen MDM / Disposition / Plan The medical record is reviewed.Triage note is reviewed and incorporated. The nursing note is reviewed and consistent with patient's history and physical exam findings. The vital signs were reviewed the the vital signs are : BP 163/95 Pulse 69 Temp 36.9 ?C (98.4 ?F) (Oral) Resp 16 Wt 111.1 kg (245 lb) SpO2 95% BMI 38.37 kg/m? CT directly visualized and independently interpreted by me as as well as radiologist showed : No acute process MDM: This is a well-appearing male who presents to the ED with a chief complaint of low back pain and abdominal distention who is, afebrile , hemodynamically stable, in no acute distress patient whose symptoms are controlled in the ED with fentanyl, . Based on patient's pmh, chief complaint and physical exam findings, differential diagnoses include cauda equina vs cord compression, vs sciatica, vs acute abdomen . Labs and imaging studies reveal cbc and cmp within normal limits Based on patient's physical exam findings, clinical picture, lab results and imaging studies that were performed here today in the ED, at this time, the following differential diagnoses such as acute abdomen is less likely due to unremarkable ct. The following differential diagnosis such as saddle parasthesia is less likely due to unremarkable exam.The following differential diagnosis such as fx is less likely due to unremarkable ct . The patient has remained hemodynamically stable throughout the entire ED visit and is without objective evidence for acute process requiring urgent intervention or hospitalization. The patient and/or family had all the tests and diagnosis explained to them and were given both verbal and written discharge instructions. I answered the patient's question as well as family to the best of my ability. The patient is stable for discharge, and pt is instructed to follow up with pcp and educated to return to ed if sx worsen or any new symptoms. Pt agreeable with plan. At this time, based on the patient's history, physical exam findings, lab results and clinical picture , the most likely diagnosis is low back pain with sciatica Patient is on home Percocet for the pain. He is also on pain management. I will give Lidoderm patch. He does not want any steroids. He will be put on anti-inflammatories as well. He will call his PCP tomorrow as well as pain management doctor spine surgeon. He'll return if symptoms worsen. Pt educated on the most common causes of Low back pain Pt was sent home with prescription of lidoderm patch Pt instructed to follow up with PCP in 1-2 days Discharge care instructions, medications, follow up instructions, and reasons to return to the ED immediately, such as worsening of symptoms or any new symptoms, were provided verbally and in writing to patient (patient guardian / medical detail representative), who verbalized understanding. This note was partially generated using Fleksy voice recognition system, and there may be some incorrect words, spellings, and punctuation that were not noted in checking the note before saving The patient was DISCHARGED: Counseled patient and family regarding suspected diagnosis AND need for follow-up. Discharged home with verbal and written instructions. They were instructed to return as needed for persistent or worsening symptoms or any new concerns. Condition at time of disposition: stable SIGNATURE: AUGUST Argueta (Pa) 10/02/18 1325 ED NOTE Observed: 10/02/2018 Status: COMPLETED Source: [place] 11:20 AM [facility] OTHER CAMPUS REPOSITORY O ID: [id number] Author: Kaylynn (Rn) KATIUSKA Trotter Service: Nursing Author Type: Registered Nurse Type: ED Notes Filed: 10/02/2018 11:21 AM Note Text: Pt presents to the ER with c/o lower back pain and bilateral hip pain. States he has pressure on his abdomen and was to have a CT to see if there was a tumor in his abd causing weight gain. ABDOMEN LIMITED Observed: 09/30/2018 Status: F Source: [place] 11:08 AM [facility] [place] REPOSITORY [facility] Imaging Services [address] [place] [address] Abdomen Limited MR#: [id number] Acct: [id number] Name: TWIN NEWMAN Rep #: [id number] : 1965 M 53 From: Nakul Painter MD PCP: Lucia Pandya Status: REG CLI Study: Abdomen Limited Date of Exam: 09/30/18 Exam# [id number] Ordering Dr: Van Christian MD STUDY: ABDOMINAL ULTRASOUND -4 quadrants. REASON FOR VISIT: Male, 53 years old. Assessment for ascites. TECHNIQUE: Ultrasound evaluation of the 4 quadrants was performed with real-time and static herrera-scale imaging. TECHNICAL QUALITY: Adequate. COMPARISON: None. FINDINGS: There is no evidence of ascites. US/Abdomen Limited IMPRESSION: Assessment of the 4 quadrants of the abdomen shows no evidence of ascites. Electronically Signed: Nakul Painter MD at 12:54 EST Tel [phone], Service support , CC: Lucia Pandya; Van Christian MD Assembly Adjuster: Signed EMERGENCY DEPARTMENT Observed: 09/29/2018 Status: F Source: [place] SUMMARY 8:48 PM [facility] [place] REPOSITORY [facility] Medical Records Department [address] [place] [address] Emergency Department Summary 09/29/182042 MR#: [id number] Acct: [id number] Name: TWIN NEWMAN Rep #: [id number] : 1965 53 From: Van Christian MD PCP: Lucia Pandya Status: REG ER - ER Visit Summary Date of Service: 09/29/18 Chief Complaint: Increased abdominal girth, 10 pound weight gain and bilateral lower extremity swelling History of Present Illness: The patient is a 53 M who has history of TIA, coronary disease, hypertension, hypercholesterolemia and DVT presents because of increased abdominal girth, 10 pound weight gain and bilateral edema that has increased over the last 3-4 weeks. He states he is having difficulty sleeping. He has to prop his head up with multiple pillows. He has not been compliant with his BiPAP device. He states he cannot tolerated. He is scheduled for outpatient CAT scan to evaluate his abdominal swelling. He denies fever, chills night sweats. He denies ocular, visual auditory symptoms. He denies chest pain, palpitations or rapid heartbeat. He denies urologic symptoms. He denies myalgias arthralgias. He denies headache, anesthesia, paresthesia or motor weakness. He denies any other symptoms. Physical Examination: Patient's vitals are remarkable and elevated blood pressure 171/102. Is not tachycardic, tachypneic or hypoxic. Head is atraumatic normocephalic. Pupils are equal round reactive. Extraocular muscles are intact. TMs are pearly white with landmarks noted. Nares patent with no drainage. Posterior pharynx without erythema or exudate. Uvula is midline. There is no dysphonia or dysphasia. Trachea is midline. There is no stridor with auscultation of the neck. Heart is regular without murmur, gallop or rub. S1 and S2 are normal. Lungs are clear to auscultation with good movement of air bilaterally. Abdomen is distended tympanitic and suspect shifting dullness consistent with ascites. There is 1+-2+ pitting edema of the lower extremity. Neuro exam is nonfocal. Test Results: Nurse obtained chest x-ray per protocol. Cardiac silhouette is borderline. Mediastinum is normal. Lung parenchyma is normal. Osseous structures are normal. CBC is unremarkable. Electric panels unremarkable. Hepatic profile is unremarkable. Troponin is less than 0.015. Emergency Department Course and Treatment: To evaluate patient's abdominal swelling, orthopnea and pedal edema cardiac workup was undertaken. Suspect patient has right heart failure secondary to noncompliance with BiPAP to treat his obstructive sleep apnea. Treatment Plan: Outpatient ultrasound was obtained to confirm ascites and if there is ascites patient will need paracentesis. He was then informed of the importance using his CPAP machine. Disposition: Discharge to home with outpatient ultrasound Impression: 1. 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 Ascites This note was generated with Fleksy dictation software. It may contain incorrect words, spelling, and punctuation that were not noted in review of the chart prior to signing ED Disposition - Plan for ED Patient: Disposition: Home or Assisted Living Chief Complaint: Shortness of Breath Instructions: ED Ascites, Paracentesis, ED CHF Right Side Referrals: Lucia Pandya PA [Primary Care Provider] - Keep Luan appointment Additional Instructions: You will need to contact the outpatient radiology department for ultrasound to be performed within the next 24-72 hours. What to do if you have Problems For any increased pain, shortness of breath, bleeding, nausea or vomiting, chest pain, or any unexpected problems, contact your Primary Care Provider. Call [facility] ([phone]) or report to the closest Emergency Room. Call 911 if necessary. 09/29/182047 <Electronically signed by Van Christian MD> Date Van Christian MD Cosigner Signature (If Indicated): Date CC: Lucia Pandya CBC W/DIFF, AUTOMATED Collected: 09/29/2018 Status: F Source: [place] 7:05 PM [facility] REPOSITORY TYPE CODE TESTS RESULT OUT OF RANGE REFERENCE UNITS LAB L100.1000 4.4-11.0 K/mm3 Normal WBC 8.0 LAB L100.1200 4.6-6.2 M/mm3 Low RBC 4.12 LAB L100.1300 13.0-16.5 g/dl Normal HGB 13.4 LAB L100.1400 40-54 % Normal HCT 40.2 LAB L100.1500 80-94 fL High MCV 97.6 LAB L100.1600 27.0-32.0 pg High MCH 32.5 LAB L100.1700 32-36 g/gl Normal MCHC 33.3 LAB L100.1810 11.6-14.6 % High RDW CV 15.1 LAB L100.1820 35.1-43.9 fl High RDW SD 54.0 LAB L100.1900 150-450 K/mm3 Normal PLT 177 LAB L100.2000 6.2-12.0 fl Normal MPV 8.6 LAB L100.2100 47-70 % Normal NEUT% 53.9 LAB L100.2200 19-41 % Normal LY% 35.6 LAB L100.2300 0-10 % Normal MONO% 7.5 LAB L100.2400 0-5 % Normal EO% 2.6 LAB L100.2500 0-1 % Normal BASO% 0.3 LAB L100.2550 0.0-0.9 % Normal IM GRAN % 0.100 Result Comment: IG% - Immature Granulocytes (promyelocytes, myelocytes and metamyelocytes) > 1% indicates that a LEFT SHIFT is Present. LAB L100.2620 2.0-7.7 X10 3/uL Normal Absolute Neut 4.3 LAB L100.2720 0.83-4.51 X10 3/ul Normal Absolute Lymph 2.85 Performed By: #### L100.0100 #### [facility] [address] [place], [address] COMPREHENSIVE METABOLIC Collected: 09/29/2018 Status: F [facility] 7:05 PM [facility] REPOSITORY TYPE CODE TESTS RESULT OUT OF RANGE REFERENCE UNITS LAB L501.0100 74-106 mg/dL High GLU 113 Result Comment: Fasting Glucose result from 100 to 125 mg/dL suggests IMPAIRED HOMEOSTASIS per A.D.A. criteria. Please note revised GLUCOSE reference range effective 2017. LAB L501.1000 7-18 mg/dL High BUN 25 LAB L501.1100 0.70-1.30 mg/dL Normal CREAT,SERUM 1.08 Result Comment: The validity of the calculated GFR AND GFRAA in patients over 70 years has not been determined. Clinical correlation is essential. LAB L501.1110 >60 mL/min Normal EST GFR 76 Result Comment: Non- GFR Calc LAB L501.1115 >60 mL/min Normal EST GFR - AA 92 Result Comment: GFR Calc LAB L501.1255 ml/min Normal Estimated CRCL 71.38 LAB L501.1300 10-20 RATIO High BUN/CRE 23.1 LAB L501.1500 6.4-8. g/dL Normal 2 T PROT 7.1 LAB L501.1800 3.2-5. g/dL Normal 0 ALB 3.3 LAB L501.1950 2.2-4. g/dL Normal 2 GLOB 3.8 LAB L501.2000 0.9-2. RATIO Normal 4 A/G 0.9 LAB L501.2200 8.5-10 mg/dL Normal .1 CA 8.8 LAB L501.4100 15-37 U/L Normal AST 15 LAB L501.4305 45-117 U/L Normal ALK P 72 LAB L501.4405 16-61 U/L Normal ALT 24 LAB L501.4600 0.20-1 mg/dL Normal .00 T BILI 0.20 LAB L501.5300 136-14 mmol/L Normal 5 NA 139 LAB L501.5600 3.5-5. mmol/L Normal 1 K 3.7 LAB L501.5900 98-107 mmol/L Normal CL 103 LAB L501.6100 21.0-3 mmol/L Normal 2.0 CO2 29.0 LAB L501.6200 5-15 Normal GAP 7 Performed By: #### L500.4050, L501.4010 #### [facility] [address], [address] TROPONIN-I Collected: 09/29/2018 Status: F Source: [place] 7:05 PM [facility] REPOSITORY TYPE CODE TESTS RESULT OUT OF RANGE REFERENCE UNITS LAB L501.4010 <0.045 ng/mL Normal < 0.015 TROPONIN-I Result Comment: TROPONIN-I EXPECTED VALUES <0.045 Negative 0.045 - 0.590 Consistent with Cardiac Damage > OR = 0.600 Critical Value Not every elevated troponin is indicative of MT. These values should be used with clinical judgement in examining the patient's clinical picture for diagnosis. To establish a diagnosis of MT versus myocardial injury, there must be a demonstrated rise and/or fall in the troponin values, in addition to ischemic symptoms, EKG changes, new regional wall motion abnormality, and/or angiographical evidence. PLEASE NOTE: REFERENCE RANGES EDITED 18 Performed By: #### L500.4050, L501.4010 #### [facility] [address] [place], [address] BNP,B-TYPE NATRIURETIC Collected: 09/29/2018 Status: F Source: [place] 7:05 PM [facility] REPOSITORY TYPE CODE TESTS RESULT OUT OF RANGE REFERENCE UNITS LAB L503.6620 0-100 pg/mL Normal B-TYPE 46.2 MALLY PEP Performed By: #### L503.6620 #### [facility] [address] [place], [address] CHEST PA AND LATERAL Observed: 09/29/2018 Status: F Source: [place] 5:42 PM [facility] [place] REPOSITORY [facility] Imaging Services [address] [place] [address] Chest PA and Lateral MR#: [id number] Acct: [id number] Name: TWIN NEWMAN Rep #: [id number] : 1965 M 53 From: Latrell Purcell MD PCP: Lucia Pandya Status: PRE ER Study: Chest PA and Lateral Date of Exam: 09/29/18 Exam# [id number] Ordering Dr: Trent,Hill Jaimes STUDY: X-RAY CHEST REASON FOR EXAM: Male, 53 years old. Short of breath TECHNIQUE: Frontal and lateral views of the chest COMPARISON: None. FINDINGS: The lungs are clear. There are no pleural effusions. There is no pneumothorax. The heart is normal in size. The visualized osseous structures are within normal limits. RAD/Chest PA and Lateral IMPRESSION: No acute thoracic pathology. Electronically Signed: Latrell Purcell, at 18:32 EST Tel , Service support , CC: Lucia Pandya; ED PHYSICIAN PROVIDER Assembly Adjuster: Signed PROGRESS Observed: 09/26/2018 Status: COMPLETED Source: [place] 1:46 PM [facility] REPOSITORY HNO ID: [id number] Author: Lucia Pond (August) Mumtaz Service: (none) Author Type: Physician Metal Flow Coordinator Type: Progress Notes Filed: 09/26/2018 5:56 PM Note Text: 53 year old male with c/o x 3-4 days ago with cold sweats, nausea. Pale. Feeling like going to pass out. No heart burn. Normal appetite. No vomiting. Last BM formed brown normal. Denies heart burn, acid, indigestion. Gaining weight. No abdominal pain. States abdomen just getting larger, not eating more. Denies chest pain, SOB, headache, heart burn. Feels nauseated. No vomiting. Too weak to go to work. Chronically fatigued. Saw Dr. Gutierrez yesterday. EKG WNL. Labs demonstrated low K at 3.4, Creatinine elevated 1.33 with BUN 22. testosterone total low at 76. Other labs in acceptable range. Component Latest Ref Rng AND Units 02/22/2018 06/28/2018 09/25/2018 BUN 9 - 24 mg/dL 22 19 22 Creatinine 0.73 - 1.22 mg/dL 0.99 1.03 1.33 (H) HISTORIES FAMILY HISTORY Problem Relation Age of Onset - Cancer Mother kidney - Cancer Father brain - Cancer Brother testicle - Cancer Sister non hodgkins lymphoma PAST MEDICAL HISTORY Diagnosis Date - Abdominal pain, epigastric - Abdominal pain, unspecified site - Anemia - Depressive disorder, not elsewhere classified - Difficult airway 02/05/2017 could not intubate could not ventilate - Difficult intubation 02/05/2017 - DVT (deep venous thrombosis) (HCC) 11/27/12 of right calf - Esophageal reflux - Gallbladder polyp - Hyperlipidemia 2011 - Hypertension - Insomnia - MGUS (monoclonal gammopathy of unknown significance) - Nausea AND vomiting - CECILY (obstructive sleep apnea) 01/25/2015 - Snoring - Stroke (HCC) - Tobacco use disorder - Transient ischemic attack (TIA) - Unspecified essential hypertension PAST SURGICAL HISTORY Procedure Laterality Date - CARPAL TUNNEL Bilateral 2015 - CHOLECYSTECTOMY 04/02/2017 laparoscopic cholecystectomy with cholangiograms R Cebul - COLONOSCOP W/ OR W/O BRSH SPEC Colonoscopy - COLONOSCOPY 01/02/2017 - EGD W/O BRSH SPECIMEN W/BX 04/04/07 - EGD W/O OR W/BRUSH/WASH 01/03/2013 EGD - G-ESOPH REFLX TST W/ELECTROD 04/04/07 - PAST SURGICAL HISTORY OF excision lymph node - PAST SURGICAL HISTORY OF vasectomy - PAST SURGICAL HISTORY OF 2009 left knee surgery - PAST SURGICAL HISTORY OF 2011 right foot surgery - PAST SURGICAL HISTORY OF Left 2016 knee surgery, fillers used Social History Marital status: Spouse name: Years of education: Number of children: 1 Occupational History Occupation Employer Comment [employer] Social History Main Topics Smoking status: Current Every Day Smoker Packs/day: 0.50 Years: 33.00 Types: Cigarettes Smokeless tobacco: Never Used Alcohol use: No Drug use: No Sexual activity: Yes Partners with: Female control/protection: Surgical ACTIVE PROBLEM LIST Tobacco Use Disorder Esophageal Reflux Chronic Depression Pain in Joint, Forearm GANGLION UNSPECIFIED HEMORRHOIDS EXTERNAL THROMBOSED Postoperative Pain, Acute, Groin, Right Unspecified Essential Hypertension Abdominal Pain, Epigastric Nausea AND Vomiting Sprain of Foot, Unspecified Site Pain in Limb Enthesopathy of Ankle and Tarsus, Unspecified Herpes Sinus Tarsi Syndrome Dvt, Lower Extremity, Distal (Hcc) Anemia Pigmented Purpuric Dermatosis Hyperlipidemia Cecily (Obstructive Sleep Apnea) Left-Sided Low Back Pain With Left-Sided Sciatica Left Buttock Pain Ischial Bursitis of Left Side Gallbladder Polyp Internal Hemorrhoids Diverticulosis of Large Intestine Without Hemorrhage Hyperplastic Colonic Polyp Difficult Intubation Difficult Airway Primary Osteoarthritis of Both Hips Piriformis Syndrome, Left Trochanteric Bursitis of Both Hips Obesity, Class II, Bmi 35-39.9 S/P Primary Angioplasty With Coronary Stent Coronary Artery Disease of [place] Artery of [place] Heart With Stable Angina Pectoris (Hcc) Mgus (Monoclonal Gammopathy of Unknown Significance) Lumbar Spinal Stenosis Gammopathy, Monoclonal Lumbar Facet Arthropathy Ddd (Degenerative Disc Disease), Lumbar Current Outpatient Prescriptions: aspirin, enteric coated (ASPIRIN, ENTERIC COATED) 81 mg EC tablet Take 81 mg by mouth once daily. Disp: Rfl: busPIRone (BUSPAR) 10 mg tablet Take 1 tablet by mouth twice daily. Disp: 60 tablet Rfl: 2 carvedilol (COREG) 25 mg tablet TAKE 2 TABLETS BY MOUTH TWICE DAILY. (Patient taking differently: TAKE 1 TABLET BY MOUTH TWICE DAILY.) Disp: 360 tablet Rfl: 2 clopidogrel (PLAVIX) 75 mg tablet Take 75 mg by mouth once daily. Disp: Rfl: CPAP Initiate Auto PAP @ 5/20 cm of water with humidification. Mask (per patient preference) optional chin strap (if indicated) , filters, tubing, humidifier and lifetime supplies. Please fax downloads to [phone]. Disp: 1 Device Rfl: 0 DULoxetine (CYMBALTA) 60 mg capsule TAKE 1 CAPSULE BY MOUTH ONCE DAILY. Disp: 90 capsule Rfl: 3 enteric contrast (will be provided with radiology test) For CT ABD/PEL W IVCON Routine order Administer, As Directed One Time Only, via Oral, Rectal, both Oral and Rectal, Enteric Tube, Stoma or Indwelling Catheter, Enteric Contrast as designated per enteric contrast guidelines Disp: 1 Each Rfl: 0 fluticasone (FLOVENT) 44 mcg/actuation inhaler Inhale 1 Puff as instructed twice daily. Disp: 1 Inhaler Rfl: 5 isosorbide mononitrate ER (IMDUR) 60 mg 24 hr tablet Take 60 mg by mouth once daily. Disp: Rfl: iv contrast (will be provided with radiology test) CT ABD/PEL -Inject, intravenously, once for 1 dose.No IV access, insert saline lock prior to the beginning of sedation, infusion, injection of imaging exam. Discontinue saline lock post exam. If Pt. has a central line or IVAD, may access for administration according to line specific nursing protocol. Once exam is complete flush line and de-access according to line specific nursing protocol in the CT contrast administration guidelines link. Disp: 1 Each Rfl: 0 losartan-hydrochlorothiazide (HYZAAR) 100-25 mg per tablet TAKE 1 TABLET BY MOUTH ONCE DAILY. Disp: 90 tablet Rfl: 0 nicotine (NICOTROL) 10 mg inhaler Inhale 1 Puff as instructed as needed. 6-16 cartridges a day and taper use as able Disp: 300 Each Rfl: 3 nitroglycerin sublingual (NITROQUICK) 0.4 mg SL tablet Dissolve 1 tablet under the tongue every 5 minutes as needed for Chest Pain. Disp: 1 Bottle of 25 Rfl: 1 nystatin (MYCOSTATIN) cream Apply 1 application to affected area twice daily. Disp: 45 g Rfl: 0 Omeprazole (PRILOSEC) 40 mg capsule Take 1 capsule by mouth once daily. Disp: 90 capsule Rfl: 1 pravastatin (PRAVACHOL) 20 mg tablet Take 2 tablets by mouth daily at bedtime. Disp: 90 tablet Rfl: 3 ranolazine ER (RANEXA) 500 mg 12 hr tablet Take 500 mg by mouth twice daily. Disp: Rfl: tiZANidine (ZANAFLEX) 4 mg tablet Take 1 tablet by mouth every 8 hours as needed (muscle spasms). Disp: 30 tablet Rfl: 3 VENTOLIN HFA 90 mcg/actuation inhaler INHALE 2 PUFFS INSTRUCTED EVERY 6 HOURS NEEDED FOR WHEEZING/SHORTNESS OF BREATH. Disp: 18 Inhaler Rfl: 2 zolpidem (AMBIEN) 10 mg tab Take 1 tablet by mouth daily at bedtime for 180 days. Disp: 30 tablet Rfl: 5 No current facility-administered medications for this visit. BP CONTROLLED (<130/80) due on 1983 TWO PNEUMOVAX 5 YEARS APART PRIOR TO AGE 65(1) due on 01/24/1984 ADULT PREVNAR-13 due on 01/24/1984 LDL CHOLESTEROL due on 12/18/2017 EXAM: BP 128/84 Pulse 75 Temp 36.6 ?C (97.8 ?F) (Tympanic) Wt 117.8 kg (259 lb 9.6 oz) SpO2 94% BMI 40.66 kg/m? Vitals 03/20/2018 04/11/2018 06/28/2018 07/24/2018 09/25/2018 09/26/2018 WEIGHT in POUNDS 241 lb 246 lb 251 lb 249 lb 8 oz 256 lb 259 lb 9.6 oz BP w/Orthostatic Vitals Date and Time Orthostatic BP Orthostatic Pulse BP Pulse BP Position BP Site BP Cuff Size 09/26/18 1411 125/84 73 -- -- Standing Right Arm Large Adult 09/26/18 1410 114/80 74 -- -- Sitting Right Arm Large Adult 09/26/18 1409 129/78 72 -- -- Supine Right Arm Large Adult 09/26/18 1308 -- -- 128/84 75 -- -- -- Pleasant but unhappy overweight adult man in no acute distress. Alert and oriented all spheres. Normal affect and cognition. Speech normal. No deficits to learning or comprehension. Skin warm, dry. Pale. Tongue and conjunctiva are pink. Normal male hair pattern. Respirations regular and unlabored. HEENT WNL. No scleral icterus. PERRLA. EOMI. TM's clear. Nose and oropharynx free from injection or lesion. No cervical lymph nodes. Thyroid non-tender, no masses Chest CTA. HRRR without murmur or gallop. Chest: no gynecomastia. Abdomen: obese, soft, active bowel sounds throughout, soft, nontender, no masses or organomegaly. No CVAT. Normal male escutcheon. Extrem: no clubbing, cyanosis, edema. Distal pulses 2+/4, prompt capillary refill.normal muscular development. ASSESSMENT/PLAN: 1. Abdominal bloating - ICD9: 787.3, ICD10: R14.0 (primary diagnosis) Add lipase. Has outstanding CT. No evidence acute abdomen. - LIPASE BLD 2. Coronary artery disease of [place] artery of [place] heart with stable angina pectoris (HCC) - ICD9: 414.01, 413.9, ICD10: I25.118 Stable: denies chest pain/ anginal sx similar to past. EF 50%. Saw Dr. Bacon last week. Weakness, pallor, sweating is worrisome with history. Agrees if worse will go to ED> 3. Fatigue, unspecified type - ICD9: 780.79, ICD10: R53.83 I explained general protocol for establishing low T on 3 early a.m. Specimens, ruling out pituitary issues. Patient has no signs of hypogonadism. He evidently felt low T was an immediate concern. Became confrontational about no one taking care of his symptoms. Fed up with [facility]. Brother had same treatment when he was diagnosed low T. Walked out before visit finished. - TESTOSTERONE, FREE AND TOTAL 4. Nausea - ICD9: 787.02, ICD10: R11.0 Sx could also be consistent with viral syndrome in community with vomiting and diarrhea. Got upset that I suggest this. Offered Zofran. Declined. Walked out of office without after-visit summary. 5. Low testosterone in male - ICD9: 790.99, ICD10: R79.89 See above. 6. Arthritis of hip - ICD9: 716.95, ICD10: M16.10 Per XR yesterday 7. Low serum potassium - ICD9: 276.8, ICD10: E87.6 Recommend replacement and recheck 2 weeks. See oders - BASIC METABOLIC PNL 8. Elevated serum creatinine - ICD9: 790.99, ICD10: R79.89 Recheck in 2 weeks. - BASIC METABOLIC PNL Lucia Pandya PA-C CNOV Observed: 09/26/2018 Status: COMPLETED Source: [place] 1:[address] [facility] REPOSITORY Office Visit (FAMPWS) TWIN NEWMAN ([id number]) 1965 M Date Time Provider Department 09/26/18 1:00 PM Lucia PANDYA) FAMPWS During your visit today, we recorded the following information about you: Temperature Pulse Blood pressure Weight 97.8 degrees 75/minute 128/84 117.8 kg Pepper Messina Dayana 09/26/2018 1:13 PM Signed Patient c/o increased feeling of fatigue, dizziness, and cold sweats. Was seen yesterday by Dr. Gutierrez. Labs were done. Pt scheduled for CT scan on 10/08/17 GI appt on 10/10/17 Lucia Pandya PA-C 09/26/2018 5:56 PM Addendum 53 year old male with c/o x 3-4 days ago with cold sweats, nausea. Pale. Feeling like going to pass out. No heart burn. Normal appetite. No vomiting. Last BM formed brown normal. Denies heart burn, acid, indigestion. Gaining weight. No abdominal pain. States abdomen just getting larger, not eating more. Denies chest pain, SOB, headache, heart burn. Feels nauseated. No vomiting. Too weak to go to work. Chronically fatigued. Saw Dr. Gutierrez yesterday. EKG WNL. Labs demonstrated low K at 3.4, Creatinine elevated 1.33 with BUN 22. testosterone total low at 76. Other labs in acceptable range. Component Latest Ref Rng AND Units 02/22/2018 06/28/2018 09/25/2018 BUN 9 - 24 mg/dL 22 19 22 Creatinine 0.73 - 1.22 mg/dL 0.99 1.03 1.33 (H) HISTORIES FAMILY HISTORY Problem Relation Age of Onset - Cancer Mother kidney - Cancer Father brain - Cancer Brother testicle - Cancer Sister non hodgkins lymphoma PAST MEDICAL HISTORY Diagnosis Date - Abdominal pain, epigastric - Abdominal pain, unspecified site - Anemia - Depressive disorder, not elsewhere classified - Difficult airway 02/05/2017 could not intubate could not ventilate - Difficult intubation 02/05/2017 - DVT (deep venous thrombosis) (HCC) 11/27/12 of right calf - Esophageal reflux - Gallbladder polyp - Hyperlipidemia 2011 - Hypertension - Insomnia - MGUS (monoclonal gammopathy of unknown significance) - Nausea AND vomiting - CECILY (obstructive sleep apnea) 01/25/2015 - Snoring - Stroke (HCC) - Tobacco use disorder - Transient ischemic attack (TIA) - Unspecified essential hypertension PAST SURGICAL HISTORY Procedure Laterality Date - CARPAL TUNNEL Bilateral 2015 - CHOLECYSTECTOMY 04/02/2017 laparoscopic cholecystectomy with cholangiograms R Cebul - COLONOSCOP W/ OR W/O [facility] SPEC Colonoscopy - COLONOSCOPY 01/02/2017 - [facility] W/BX 04/04/07 - EGD W/O OR W/BRUSH/WASH 01/03/2013 EGD - G-ESOPH REFLX TST W/ELECTROD 04/04/07 - PAST SURGICAL HISTORY OF excision lymph node - PAST SURGICAL HISTORY OF vasectomy - PAST SURGICAL HISTORY OF 2009 left knee surgery - PAST SURGICAL HISTORY OF 2011 right foot surgery - PAST SURGICAL HISTORY OF Left 2016 knee surgery, fillers used Social History Marital status: Spouse name: Years of education: Number of children: 1 Occupational History Occupation Employer Comment [employer] Social History Main Topics Smoking status: Current Every Day Smoker Packs/day: 0.50 Years: 33.00 Types: Cigarettes Smokeless tobacco: Never Used Alcohol use: No Drug use: No Sexual activity: Yes Partners with: Female control/protection: Surgical ACTIVE PROBLEM LIST Tobacco Use Disorder Esophageal Reflux Chronic Depression Pain in Joint, Forearm GANGLION UNSPECIFIED HEMORRHOIDS EXTERNAL THROMBOSED Postoperative Pain, Acute, Groin, Right Unspecified Essential Hypertension Abdominal Pain, Epigastric Nausea AND Vomiting Sprain of Foot, Unspecified Site Pain in Limb Enthesopathy of Ankle and Tarsus, Unspecified Herpes Sinus Tarsi Syndrome Dvt, Lower Extremity, Distal (Hcc) Anemia Pigmented Purpuric Dermatosis Hyperlipidemia Cecily (Obstructive Sleep Apnea) Left-Sided Low Back Pain With Left-Sided Sciatica Left Buttock Pain Ischial Bursitis of Left Side Gallbladder Polyp Internal Hemorrhoids Diverticulosis of Large Intestine Without Hemorrhage Hyperplastic Colonic Polyp Difficult Intubation Difficult Airway Primary Osteoarthritis of Both Hips Piriformis Syndrome, Left Trochanteric Bursitis of Both Hips Obesity, Class II, Bmi 35-39.9 S/P Primary Angioplasty With Coronary Stent Coronary Artery Disease of [place] Artery of [place] Heart With Stable Angina Pectoris (Hcc) Mgus (Monoclonal Gammopathy of Unknown Significance) Lumbar Spinal Stenosis Gammopathy, Monoclonal Lumbar Facet Arthropathy Ddd (Degenerative Disc Disease), Lumbar Current Outpatient Prescriptions: aspirin, enteric coated (ASPIRIN, ENTERIC COATED) 81 mg EC tablet Take 81 mg by mouth once daily. Disp: Rfl: busPIRone (BUSPAR) 10 mg tablet Take 1 tablet by mouth twice daily. Disp: 60 tablet Rfl: 2 carvedilol (COREG) 25 mg tablet TAKE 2 TABLETS BY MOUTH TWICE DAILY. (Patient taking differently: TAKE 1 TABLET BY MOUTH TWICE DAILY.) Disp: 360 tablet Rfl: 2 clopidogrel (PLAVIX) 75 mg tablet Take 75 mg by mouth once daily. Disp: Rfl: CPAP Initiate Auto PAP @ 5/20 cm of water with humidification. Mask (per patient preference) optional chin strap (if indicated) , filters, tubing, humidifier and lifetime supplies. Please fax downloads to [phone]. Disp: 1 Device Rfl: 0 DULoxetine (CYMBALTA) 60 mg capsule TAKE 1 CAPSULE BY MOUTH ONCE DAILY. Disp: 90 capsule Rfl: 3 enteric contrast (will be provided with radiology test) For CT ABD/PEL W IVCON Routine order Administer, As Directed One Time Only, via Oral, Rectal, both Oral and Rectal, Enteric Tube, Stoma or Indwelling Catheter, Enteric Contrast as designated per enteric contrast guidelines Disp: 1 Each Rfl: 0 fluticasone (FLOVENT) 44 mcg/actuation inhaler Inhale 1 Puff as instructed twice daily. Disp: 1 Inhaler Rfl: 5 isosorbide mononitrate ER (IMDUR) 60 mg 24 hr tablet Take 60 mg by mouth once daily. Disp: Rfl: iv contrast (will be provided with radiology test) CT ABD/PEL -Inject, intravenously, once for 1 dose.No IV access, insert saline lock prior to the beginning of sedation, infusion, injection of imaging exam. Discontinue saline lock post exam. If Pt. has a central line or IVAD, may access for administration according to line specific nursing protocol. Once exam is complete flush line and de-access according to line specific nursing protocol in the CT contrast administration guidelines link. Disp: 1 Each Rfl: 0 losartan-hydrochlorothiazide (HYZAAR) 100-25 mg per tablet TAKE 1 TABLET BY MOUTH ONCE DAILY. Disp: 90 tablet Rfl: 0 nicotine (NICOTROL) 10 mg inhaler Inhale 1 Puff as instructed as needed. 6-16 cartridges a day and taper use as able Disp: 300 Each Rfl: 3 nitroglycerin sublingual (NITROQUICK) 0.4 mg SL tablet Dissolve 1 tablet under the tongue every 5 minutes as needed for Chest Pain. Disp: 1 Bottle of 25 Rfl: 1 nystatin (MYCOSTATIN) cream Apply 1 application to affected area twice daily. Disp: 45 g Rfl: 0 Omeprazole (PRILOSEC) 40 mg capsule Take 1 capsule by mouth once daily. Disp: 90 capsule Rfl: 1 pravastatin (PRAVACHOL) 20 mg tablet Take 2 tablets by mouth daily at bedtime. Disp: 90 tablet Rfl: 3 ranolazine ER (RANEXA) 500 mg 12 hr tablet Take 500 mg by mouth twice daily. Disp: Rfl: tiZANidine (ZANAFLEX) 4 mg tablet Take 1 tablet by mouth every 8 hours as needed (muscle spasms). Disp: 30 tablet Rfl: 3 VENTOLIN HFA 90 mcg/actuation inhaler INHALE 2 PUFFS INSTRUCTED EVERY 6 HOURS NEEDED FOR WHEEZING/SHORTNESS OF BREATH. Disp: 18 Inhaler Rfl: 2 zolpidem (AMBIEN) 10 mg tab Take 1 tablet by mouth daily at bedtime for 180 days. Disp: 30 tablet Rfl: 5 No current facility-administered medications for this visit. BP CONTROLLED (<130/80) due on 1983 TWO PNEUMOVAX 5 YEARS APART PRIOR TO AGE 65(1) due on 01/24/1984 ADULT PREVNAR-13 due on 01/24/1984 LDL CHOLESTEROL due on 12/18/2017 EXAM: BP 128/84 Pulse 75 Temp 36.6 ?C (97.8 ?F) (Tympanic) Wt 117.8 kg (259 lb 9.6 oz) SpO2 94% BMI 40.66 kg/m? Vitals 03/20/2018 04/11/2018 06/28/2018 07/24/2018 09/25/2018 09/26/2018 WEIGHT in POUNDS 241 lb 246 lb 251 lb 249 lb 8 oz 256 lb 259 lb 9.6 oz BP w/Orthostatic Vitals Date and Time Orthostatic BP Orthostatic Pulse BP Pulse BP Position BP Site BP Cuff Size 09/26/18 1411 125/84 73 -- -- Standing Right Arm Large Adult 09/26/18 1410 114/80 74 -- -- Sitting Right Arm Large Adult 09/26/18 1409 129/78 72 -- -- Supine Right Arm Large Adult 09/26/18 1308 -- -- 128/84 75 -- -- -- Pleasant but unhappy overweight adult man in no acute distress. Alert and oriented all spheres. Normal affect and cognition. Speech normal. No deficits to learning or comprehension. Skin warm, dry. Pale. Tongue and conjunctiva are pink. Normal male hair pattern. Respirations regular and unlabored. HEENT WNL. No scleral icterus. PERRLA. EOMI. TM's clear. Nose and oropharynx free from injection or lesion. No cervical lymph nodes. Thyroid non-tender, no masses Chest CTA. HRRR without murmur or gallop. Chest: no gynecomastia. Abdomen: obese, soft, active bowel sounds throughout, soft, nontender, no masses or organomegaly. No CVAT. Normal male escutcheon. Extrem: no clubbing, cyanosis, edema. Distal pulses 2+/4, prompt capillary refill.normal muscular development. ASSESSMENT/PLAN: 1. Abdominal bloating - ICD9: 787.3, ICD10: R14.0 (primary diagnosis) Add lipase. Has outstanding CT. No evidence acute abdomen. - LIPASE BLD 2. Coronary artery disease of [place] artery of [place] heart with stable angina pectoris (HCC) - ICD9: 414.01, 413.9, ICD10: I25.118 Stable: denies chest pain/ anginal sx similar to past. EF 50%. Saw Dr. Bacon last week. Weakness, pallor, sweating is worrisome with history. Agrees if worse will go to ED> 3. Fatigue, unspecified type - ICD9: 780.79, ICD10: R53.83 I explained general protocol for establishing low T on 3 early a.m. Specimens, ruling out pituitary issues. Patient has no signs of hypogonadism. He evidently felt low T was an immediate concern. Became confrontational about no one taking care of his symptoms. Fed up with [facility]. Brother had same treatment when he was diagnosed low T. Walked out before visit finished. - TESTOSTERONE, FREE AND TOTAL 4. Nausea - ICD9: 787.02, ICD10: R11.0 Sx could also be consistent with viral syndrome in community with vomiting and diarrhea. Got upset that I suggest this. Offered Zofran. Declined. Walked out of office without after- visit summary. 5. Low testosterone in male - ICD9: 790.99, ICD10: R79.89 See above. 6. Arthritis of hip - ICD9: 716.95, ICD10: M16.10 Per XR yesterday 7. Low serum potassium - ICD9: 276.8, ICD10: E87.6 Recommend replacement and recheck 2 weeks. See oders - BASIC METABOLIC PNL 8. Elevated serum creatinine - ICD9: 790.99, ICD10: R79.89 Recheck in 2 weeks. - BASIC METABOLIC PNL M Anibal Pandya PA-C Referring Provider: SELF [[id number]] Allergies As of Date: 09/26/2018 Noted Allergy Reaction FLEXERIL (CYCLOBENZAPRINE HCL) 12/20/2012 8 - GI Upset TRAMADOL 12/16/2014 8 - GI Upset VICODIN (HYDROCODONE-ACETAMINOPHE*12/13/2009 8 - GI Upset Date Reviewed: 07/24/2018 Reviewed by: Nasima Schwab - Fully Assessed Reason for Visit: Illness [2733] Primary Visit Diagnosis:Abdominal bloating [R14.0] Other Visit Diagnoses:Coronary artery disease of [place] artery of [place] heart with stable angina pectoris (HCC) [I25.118] Fatigue, unspecified type [R53.83] Nausea [R11.0] Low testosterone in male [R79.89] Arthritis of hip [M16.10] Low serum potassium [E87.6] Elevated serum creatinine [R79.89] Order(s):LIPASE BLD [SQLIPA] Order #: [id number] FUTURE TESTOSTERONE, FREE AND TOTAL [SQFTESTO] Order #: [id number] FUTURE potassium chloride (KLOR-CON 10) 10 mEq tabletTake 2 tablets by mouth daily with breakfast.Disp: 60 tabletRfl: 5 BASIC METABOLIC PNL [SQBMP] Order #: [id number] FUTURE Prescriptions as of 09/26/2018 Sig: ASPIRIN 81 MG TABLET,DELAYED * Take 81 mg by mouth once kristen* BUSPIRONE 10 MG TABLET Take 1 tablet by mouth twice * CARVEDILOL 25 MG TABLET TAKE 2 TABLETS BY MOUTH TWICE* Patient taking differently: TAKE 1 TABLET BY MOUTH TWICE * CLOPIDOGREL 75 MG TABLET Take 75 mg by mouth once kristen* CPAP Initiate Auto PAP @ 5/20 cm o* ENTERIC CONTRAST (RADIOLOGY P* For CT ABD/PEL W IVCON Routin* FLUTICASONE 44 MCG/ACTUATION * Inhale 1 Puff as instructed t* ISOSORBIDE MONONITRATE ER 60 * Take 60 mg by mouth once kristen* IV CONTRAST (RADIOLOGY PROCED* CT ABD/PEL -Inject, intraveno* LOSARTAN 100 MG-HYDROCHLOROTH* TAKE 1 TABLET BY MOUTH ONCE D* NICOTINE 10 MG INHALATION CAR* Inhale 1 Puff as instructed a* NITROGLYCERIN 0.4 MG SUBLINGU* Dissolve 1 tablet under the t* NYSTATIN 100,000 UNIT/GRAM TO* Apply 1 application to affect* OMEPRAZOLE 40 MG CAPSULE,BRYNN* Take 1 capsule by mouth once * POTASSIUM CHLORIDE ER 10 MEQ * Take 2 tablets by mouth daily* PRAVASTATIN 20 MG TABLET Take 2 tablets by mouth daily* RANOLAZINE ER 500 MG TABLET,E* Take 500 mg by mouth twice da* TIZANIDINE 4 MG TABLET Take 1 tablet by mouth every * VENTOLIN HFA 90 MCG/ACTUATION* INHALE 2 PUFFS INSTRUCTED * ZOLPIDEM 10 MG TABLET Take 1 tablet by mouth daily * Medication notes this encounter DULOXETINE 60 MG CAPSULE,DELAYED RELEASE >> M Anibal Pandya PA-C 09/26/2018 5:38 PM trouble urinating Problem List As Of Date 09/26/2018 Noted Resolved Dysuria [R30.0] INVALID FOR*04/11/2018 Prostatitis, unspecified [N41.9] INVALID FOR*12/11/2016 TOBACCO USE DISORDER [F17.200] ESOPHAGEAL REFLUX [K21.9] Chronic depression [F32.9] JOINT PAIN-FOREARM [M25.539] INVALID FOR* GANGLION UNSPECIFIED [M67.40] INVALID FOR* HEMORRHOIDS EXTERNAL THROMBOSED [K64.5] INVALID FOR* Postoperative pain, acute, groin, right [R10.31* More... Unspecified Essential Hypertension [I10] Abdominal Pain, Epigastric [R10.13] Nausea AND Vomiting [R11.2] Sprain and strain of unspecified site of foot [*INVALID FOR* Pain in limb [M79.609] INVALID FOR* Enthesopathy of ankle and tarsus, unspecified [*INVALID FOR* 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 Hypertension goal BP (blood pressure) < 140/90 * 04/11/2018 Hyperlipidemia [E78.5] Inflamed skin tag [L91.8] INVALID FOR*12/11/2016 CECILY (obstructive sleep apnea) [G47.33] INVALID FOR* More... Left-sided low back pain with left-sided sciati*INVALID FOR* Left buttock pain [M79.18] INVALID FOR* Ischial bursitis of left side [M70.72] INVALID FOR* Gallbladder polyp [K82.4] INVALID FOR* Internal hemorrhoids [K64.8] INVALID FOR* Diverticulosis of large intestine without hemor*INVALID FOR* Hyperplastic colonic polyp [K63.5] INVALID FOR* Difficult intubation [T88.4XXA] INVALID FOR* Difficult airway [T88.4XXA] INVALID FOR* More... Primary osteoarthritis of both hips [M16.0] INVALID FOR* Piriformis syndrome, left [G57.02] INVALID FOR* Trochanteric bursitis of both hips [M70.61, M70*INVALID FOR* Chest pain [R07.9] INVALID FOR*02/22/2018 More... SOB (shortness of breath) [R06.02] INVALID FOR*02/22/2018 More... Obesity, Class II, BMI 35-39.9 [E66.9] INVALID FOR* S/P primary angioplasty with coronary stent [Z9*INVALID FOR* Coronary artery disease of [place] artery of [place]*INVALID FOR* More... MGUS (monoclonal gammopathy of unknown signific*INVALID FOR* Lumbar spinal stenosis [M48.061] INVALID FOR* More... Gammopathy, monoclonal [D47.2] INVALID FOR* More... Lumbar facet arthropathy [M47.816] INVALID FOR* DDD (degenerative disc disease), lumbar [M51.36]INVALID FOR* Arthritis of hip [M16.10] INVALID FOR* More... Visit Notes: >> Pepper Messina Ma [facility] Sep 26, 2018 1:09 PM Status: Signed Patient c/o increased feeling of fatigue, dizziness, and cold sweats. Was seen yesterday by Dr. Gutierrez. Labs were done. Pt scheduled for CT scan on 10/08/17 GI appt on 10/10/17 Prescriptions ordered this encounter Disp Refills Start End ONDANSETRON HCL 4 MG TABLET 09/26/2018 09/26/2018 Route: ORAL POTASSIUM CHLORIDE ER 10 MEQ TABLET,* 60 t* 5 09/26/2018 Route: ORAL Sig: Take 2 tablets by mouth daily with breakfast. Medications Discontinued During This Encounter DULoxetine (CYMBALTA) 60 mg capsule 90 c* 3 11/13/2017 09/26/2018 Sig: TAKE 1 CAPSULE BY MOUTH ONCE DAILY. Disc: Side Effects ondansetron 4 mg tab(s) (ZOFRAN) 09/26/2018 09/26/2018 Route: ORAL Sig: Disc: Reason for discontinue is not on file. Follow-up and Disposition History Recorded Encounter Status:Closed by Lucia PANDYA PA-C on 09/26/18 BASIC METABOLIC PANL Collected: 09/26/2018 Status: F Source: [place] 11:45 AM [facility] REPOSITORY TYPE CODE TESTS RESULT OUT OF REFERENCE UNITS RANGE LAB GLU 74-99 mg/dL High Glucose 116 Result Comment: The [place] [employer] (ADA) provides guidance for cutoff values for fasting glucose and random glucose. The ADA defines fasting as no caloric intake for at least 8 hours. Fas ting plasma glucose results between 100 to 125 mg/dL indicate increased risk for diabetes (prediabetes). Fasting plasma glucose results greater than or equal to 126 mg/dL meet the criteria for diagnosis of diabetes. In the absence of unequivocal hyperglycemia, results should be confirmed by repeat testing. In a patient with classic symptoms of hyperglycemia or hyperglycemic crisis, random plasma glucose results greater than or equal to 200 mg/dL meet the criteria for diagnosis of diabetes. Reference: Standards of Medical Care in Diabetes 2016, [place] [employer]. Diabetes Care. 2016.39(Suppl 1). LAB BUN 9-24 mg/dL BUN 24 LAB CRET 0.73-1.22 mg/dL Creatinine 1.11 LAB NA 136-144 mmol/L Sodium 141 LAB K 3.7-5.1 mmol/L Low Potassium 3.2 LAB CL 97-105 mmol/L Chloride 97 LAB CO2 22-30 mmol/L CO2 High 32 LAB AGAP 9-18 mmol/L Anion Gap 12 LAB CA 8.5-10.2 mg/dL Calcium, Total 9.7 LAB GFRAA eGFR- Amer. >60 LAB GFRNAA . eGFR-All Other Races >60 Result Comment: eGFR (Estimated GFR) Units of measure: mL/min/1.73 meters squared eGFR is derived from the reexpressed MDRD Study equation using the following parameters: serum creatinine, age, gender and race. The creatinine assay has been calibrated to be traceable to IDMS. An eGFR <60 mL/min/1.73m2 for >3 months is consistent with chronic kidney disease. Refer to KDOQI guidelines for clinical interpretation. In patients with unstable renal function, e.g. those with acute kidney injury, the eGFR may not accurately reflect actual GFR. Performed By: #### BMP, FSH, LH #### [facility] [address] [address] FSH Collected: 09/26/2018 Status: F Source: [place] 11:[address] [facility] REPOSITORY TYPE CODE TESTS RESULT OUT OF RANGE REFERENCE UNITS LAB FSH 1.5-12.4 mU/mL FSH 11.6 Performed By: #### BMP, FSH, LH #### [place] [address] LH Collected: 09/26/2018 Status: F Source: [facility] 11:45 AM [facility] [place] REPOSITORY TYPE CODE TESTS RESULT OUT OF RANGE REFERENCE UNITS LAB LH 1.8-10.8 mU/mL LH 7.6 Performed By: #### BMP, FSH, LH #### [place] [address] TESTOSTERONE Collected: 09/26/2018 Status: F Source: [place] 11:[address] [facility] REPOSITORY TYPE CODE TESTS RESULT OUT OF REFERENCE UNITS RANGE LAB TESTO 193-824 ng/dL Testosterone Low 165 Result Comment: A testosterone level in the 193-320 ng/dL range with associated clinical symptoms is considered low and may indicate hypogonadism (from NEJ 2010 363:123-135). Results >320 ng/dL are considered normal. Performed By: #### TESTO #### [place] [address] CBC AND DIFFERENTIAL Collected: 09/25/2018 Status: F Source: [place] 3:[address] [facility] REPOSITORY TYPE CODE TESTS RESULT OUT OF REFERENCE UNITS RANGE LAB WBC 3.70-11.00 k/uL WBC 9.10 LAB RBC 4.20-6.00 m/uL RBC 4.42 LAB HGB 13.0-17.0 g/dL Hemoglobin 14.2 LAB HCT 39.0-51.0 % Hematocrit 43.3 LAB MCV 80.0-100.0 fL MCV 98.0 LAB MCH 26.0-34.0 pG MCH 32.1 LAB MCHC 30.5-36.0 g/dL MCHC 32.8 LAB RDWCV 11.5-15.0 % RDW-CV 14.9 LAB PLTCT 150-400 k/uL Platelet Count 217 LAB MPV 9.0-12.7 fL MPV 9.3 LAB ANEUT % Neut% 54.5 LAB AANEUT 1.45-7.50 k/uL Abs Neut 4.96 LAB ALYMP % Lymph% 32.2 LAB AALYMP 1.00-4.00 k/uL Abs Lymph 2.93 LAB AMONO % Brule% 10.9 LAB AAMONO <0.87 k/uL Abs Brule High 0.99 LAB AEOS % Eosin% 1.9 LAB AAEOS <0.46 k/uL Abs Eosin 0.17 LAB ABASO % Baso% 0.5 LAB AABASO <0.11 k/uL Abs Baso 0.05 LAB AUNRBC 0 /100 WBC NRBCs 0.0 LAB ABNRBC <0.01 k/uL Absolute nRBC <0.01 LAB DTYP DTYPE Auto Diff Performed By: #### CBCDIF, CMP, NTBNP, TSH, HBA1C #### [facility] [address] [place], [place] [address] COMP METABOLIC PANEL Collected: 09/25/2018 Status: F Source: [place] 3:33 PM [facility] REPOSITORY TYPE CODE TESTS RESULT OUT OF REFERENCE UNITS RANGE LAB TP 6.3-8.0 g/dL Protein, Total 6.9 LAB ALB 3.9-4.9 g/dL Albumin 4.2 LAB CA 8.5-10.2 mg/dL Calcium, Total 9.9 LAB TBIL 0.2-1.3 mg/dL Bilirubin, Total 0.2 LAB ALKP 38-113 U/L Alkaline Phosphatase 67 LAB AST 14-40 U/L AST 20 LAB GLU 74-99 mg/dL Low Glucose 68 Result Comment: The [place] [employer] (ADA) provides guidance for cutoff values for fasting glucose and random glucose. The ADA defines fasting as no caloric intake for at least 8 hours. Fas ting plasma glucose results between 100 to 125 mg/dL indicate increased risk for diabetes (prediabetes). Fasting plasma glucose results greater than or equal to 126 mg/dL meet the criteria for diagnosis of diabetes. In the absence of unequivocal hyperglycemia, results should be confirmed by repeat testing. In a patient with classic symptoms of hyperglycemia or hyperglycemic crisis, random plasma glucose results greater than or equal to 200 mg/dL meet the criteria for diagnosis of diabetes. Reference: Standards of Medical Care in Diabetes 2016, [place] [employer]. Diabetes Care. 2016.39(Suppl 1). LAB BUN 9-24 mg/dL BUN 22 LAB CRET 0.73-1.22 mg/dL Creatinine High 1.33 LAB NA 136-144 mmol/L Sodium 144 LAB K 3.7-5.1 mmol/L Low Potassium 3.4 LAB CL 97-105 mmol/L Low Chloride 96 LAB CO2 22-30 mmol/L CO2 High 37 LAB AGAP 9-18 mmol/L Anion Gap 11 LAB ALT 10-54 U/L ALT 18 LAB GFRAA eGFR- Amer. >60 LAB GFRNAA . eGFR-All Other Races 56 Result Comment: eGFR (Estimated GFR) Units of measure: mL/min/1.73 meters squared eGFR is derived from the reexpressed MDRD Study equation using the following parameters: serum creatinine, age, gender and race. The creatinine assay has been calibrated to be traceable to IDMS. An eGFR <60 mL/min/1.73m2 for >3 months is consistent with chronic kidney disease. Refer to KDOQI guidelines for clinical interpretation. In patients with unstable renal function, e.g. those with acute kidney injury, the eGFR may not accurately reflect actual GFR. Performed By: #### CBCDIF, CMP, NTBNP, TSH, HBA1C #### [facility] [employer] [address] [id number] NT PRO BNP Collected: 09/25/2018 Status: F Source: [place] 3:[address] [facility] REPOSITORY TYPE CODE TESTS RESULT OUT OF REFERENCE UNITS RANGE LAB PBNP <125 pg/mL PRO B Natr 118 Peptide Performed By: #### CBCDIF, CMP, NTBNP, TSH, HBA1C #### [facility] [employer] [address] [place], [place] [address] TSH Collected: 09/25/2018 Status: F Source: [place] 3:[address] [facility] REPOSITORY TYPE CODE TESTS RESULT OUT OF RANGE REFERENCE UNITS LAB TSH 0.400-5.500 uU/mL TSH 1.580 Performed By: #### CBCDIF, CMP, NTBNP, TSH, HBA1C #### [facility] [employer] [address] [place], [place] [address] HEMOGLOBIN A1C Collected: 09/25/2018 Status: F Source: [place] 3:[address] [facility] REPOSITORY TYPE CODE TESTS RESULT OUT OF REFERENCE UNITS RANGE LAB HGBA1C 4.3-5.6 % High Hemoglobin A1c 6.0 Result Comment: [place] [employer] guidelines indicate that patients with HgbA1c in the range 5.7-6.4% are at increased risk for development of diabetes, and intervention by lifestyle modification may be beneficial. HgbA1c greater or equal to 6.5% is considered diagnostic of diabetes. LAB HBA0 mg/dL Est. Average Glucose 126 Result Comment: eAG: (Estimated average glucose) is a calculated value from HgbA1c and is medical detail representative of the average blood glucose level in the last 2-3 month period. Performed By: #### CBCDIF, CMP, NTBNP, TSH, HBA1C #### [facility] [employer] [address] [place], [place] [address] TESTOSTERONE Collected: 09/25/2018 Status: F Source: [place] 3:[address] [facility] REPOSITORY TYPE CODE TESTS RESULT OUT OF REFERENCE UNITS RANGE LAB TESTO 193-824 ng/dL Testosterone Low 76 Result Comment: A testosterone level in the 193-320 ng/dL range with associated clinical symptoms is considered low and may indicate hypogonadism (from NEJ 2010 363:123-135). Results >320 ng/dL are considered normal. Result rechecked. Performed By: #### TESTO #### [facility] [employer] [address] [place], [place] [address] XR HIP SWAPNIL 5V PEL+ Observed: 09/25/2018 Status: F Source: [place] AP/LAT EA HIP 3:[address] [facility] REPOSITORY * * *Final Report* * * DATE OF EXAM: Sep 25 2018 3:25PM WOX [id number] - XR HIP SWAPNIL 5V PEL+ AP/LAT EA HIP / PROCEDURE REASON: multiple diagnoses * * * * Physician Interpretation * * * * Examination: Pelvis and both hips History: pt states pain for months in both hips, starts across the lower back and goes into lateral side of both hips, is not able to lay on either side at night. No inj Pain of both hip joints Pain of both hip joints Technique: XR HIP SWAPNIL 5V PEL+ AP/LAT EA HIP -- Comparison: 10/16/2017 FINDING/ RESULT: There is moderate narrowing of both hip joints with moderate-sized osteophytes. Small acetabular subchondral cysts are present bilaterally. Sacroiliac joints appear maintained bilaterally. Small subchondral cysts at the right side of the symphysis pubis. IMPRESSION: Moderate osteoarthritis of both hips. Assembly Adjuster: PSCB Transcribe Date/Time: Sep 25 2018 3:54P Dictated by : STAN LINARES MD This examination was interpreted and the report reviewed and electronically signed by: STAN LINARES MD on Sep 25 2018 3:55PM EST [id number] PROGRESS Observed: 09/25/2018 Status: COMPLETED Source: [place] 3:14 PM [facility] [place] REPOSITORY HNO ID: [id number] Author: Kalani Chen (Rt) Mann Luque Service: (none) Author Type: Wwe Wrestler Type: Progress Notes Filed: 09/25/2018 3:25 PM Note Text: Radiology Service Progress Note PATIENT NAME: Twin Newman DATE OF SERVICE: September 25, 2018 TIME: 3:14 PM PATIENT IDENTITY VERIFICATION COMPLETED USING TWO (2) METHODS: Patient confirmed name verbally and Date of . PATIENT GENDER DATA: Male PATIENT RELEVANT IMPLANT DATA REVIEWED: Not Applicable RADIOLOGY DEPARTMENT: General X-ray: Exam(s) Completed: Pelvis X-Ray: Pelvis with Hip Bilateral PERIPHERAL IV DATA: Not applicable SIGNED BY: RT Meghan September 25, 2018 3:14 PM ECG COMPLETE W Observed: 09/25/2018 Status: C Source: [place] INTERPRETATION 2:37 PM [facility] [place] REPOSITORY NAME : TWIN NEWMAN PID : [id number] : 1965 Gender : Male Race : ORD : [id number] Procedure Date : Sep 25 2018 14:37:20 Edit Date : Oct 07 2018 12:51:40 Diagnosis:NORMAL SINUS RHYTHM POSSIBLE LEFT ATRIAL ENLARGEMENT BORDERLINE ECG Confirmed by MD BALTAZAR GREGORY () on 10/07/2018 12:48:59 PM Also confirmed by MD BALTAZAR GREGORY () on 10/07/2018 12:51:34 PM Ventricular Rate : 81 BPM Atrial Rate : 81 BPM P-R Interval : 184 ms QRS Duration : 102 ms Q-T Interval : 386 ms QTC Calculation(Bezet) : 448 ms P Repton : 54 degrees R Repton : 59 degrees T Repton : 42 degrees Test Reason : Location : 185 : [facility] Overread By : MD BALTAZAR GREGORY Edited By : MD BALTAZAR GREGORY Referred By : VADIM GUTIERREZ Acquired by : PEPPER MESSINA, PROGRESS Observed: 09/25/2018 Status: COMPLETED Source: [place] 2:11 PM [facility] REPOSITORY HNO ID: [id number] Author: Vadim Gutierrez Service: (none) Author Type: Physician Type: Progress Notes Filed: 09/25/2018 2:56 PM Note Text: Patient presents with: Hip Pain Perspiration: cold sweats Breathing Problem HPI: Patient presents today for office visit for several issues. Nursing Notes: Pepper Messina Ma 09/25/2018 2:01 PM Unsigned HIP PAIN: bilateral x 1 week. Patient also c/o cold sweats, fatigue, and SOB. His abdomen is distended and tight. Last saw Dr. Bacon 2 weeks ago Is over due on labs like hba1c. Cardiology adjusted bp meds. Cut the coreg. His edema is improving. He feels like his stomach is swelling and distended. Has been going on for several months. No nausea or vomiting. No fever or chills. No black or bloody stools. No issues urinating. Appetite has fiorella ok. Hips have been bothering him for a week. Oxycodone from Dr. Caal is not helping. Right side is worse on the left. Hurts to sleep on it. No trauma. No redness or swelling. No radiation of pain. No tingling. Started with cold sweats and nausea three days ago. No diarrhea. No chest pain or new shortness of breath. Still seeing heme onc for mgus. MEDICATIONS: Current Outpatient Prescriptions: aspirin, enteric coated (ASPIRIN, ENTERIC COATED) 81 mg EC tablet Take 81 mg by mouth once daily. busPIRone (BUSPAR) 10 mg tablet Take 1 tablet by mouth twice daily. carvedilol (COREG) 25 mg tablet TAKE 2 TABLETS BY MOUTH TWICE DAILY. (Patient taking differently: TAKE 1 TABLET BY MOUTH TWICE DAILY.) clopidogrel (PLAVIX) 75 mg tablet Take 75 mg by mouth once daily. CPAP Initiate Auto PAP @ 5/20 cm of water with humidification. Mask (per patient preference) optional chin strap (if indicated) , filters, tubing, humidifier and lifetime supplies. Please fax downloads to [phone]. DULoxetine (CYMBALTA) 60 mg capsule TAKE 1 CAPSULE BY MOUTH ONCE DAILY. fluticasone (FLOVENT) 44 mcg/actuation inhaler Inhale 1 Puff as instructed twice daily. isosorbide mononitrate ER (IMDUR) 60 mg 24 hr tablet Take 60 mg by mouth once daily. losartan-hydrochlorothiazide (HYZAAR) 100-25 mg per tablet TAKE 1 TABLET BY MOUTH ONCE DAILY. nicotine (NICOTROL) 10 mg inhaler Inhale 1 Puff as instructed as needed. 6-16 cartridges a day and taper use as able nitroglycerin sublingual (NITROQUICK) 0.4 mg SL tablet Dissolve 1 tablet under the tongue every 5 minutes as needed for Chest Pain. Omeprazole (PRILOSEC) 40 mg capsule Take 1 capsule by mouth once daily. pravastatin (PRAVACHOL) 20 mg tablet Take 2 tablets by mouth daily at bedtime. ranolazine ER (RANEXA) 500 mg 12 hr tablet Take 500 mg by mouth twice daily. tiZANidine (ZANAFLEX) 4 mg tablet Take 1 tablet by mouth every 8 hours as needed (muscle spasms). VENTOLIN HFA 90 mcg/actuation inhaler INHALE 2 PUFFS INSTRUCTED EVERY 6 HOURS NEEDED FOR WHEEZING/SHORTNESS OF BREATH. zolpidem (AMBIEN) 10 mg tab Take 1 tablet by mouth daily at bedtime for 180 days. No current facility-administered medications for this visit. ALLERGIES: ALLERGIES Allergen Reactions - Flexeril [Cyclobenz* GI Upset - Tramadol GI Upset - Vicodin [Hydrocodon* GI Upset PAST MEDICAL HISTORY Diagnosis Date - Abdominal pain, epigastric - Abdominal pain, unspecified site - Anemia - Depressive disorder, not elsewhere classified - Difficult airway 02/05/2017 could not intubate could not ventilate - Difficult intubation 02/05/2017 - DVT (deep venous thrombosis) (HCC) 11/27/12 of right calf - Esophageal reflux - Gallbladder polyp - Hyperlipidemia 2011 - Hypertension - Insomnia - MGUS (monoclonal gammopathy of unknown significance) - Nausea AND vomiting - CECILY (obstructive sleep apnea) 01/25/2015 - Snoring - Stroke (HCC) - Tobacco use disorder - Transient ischemic attack (TIA) - Unspecified essential hypertension PAST SURGICAL HISTORY Procedure Laterality Date - CARPAL TUNNEL Bilateral 2015 - CHOLECYSTECTOMY 04/02/2017 laparoscopic cholecystectomy with cholangiograms R Cebul - COLONOSCOP W/ OR W/O BRSH SPEC Colonoscopy - COLONOSCOPY 01/02/2017 - EGD W/O BRSH SPECIMEN W/BX 04/04/07 - EGD W/O OR W/BRUSH/WASH 01/03/2013 EGD - G-ESOPH REFLX TST W/ELECTROD 04/04/07 - PAST SURGICAL HISTORY OF excision lymph node - PAST SURGICAL HISTORY OF vasectomy - PAST SURGICAL HISTORY OF 2009 left knee surgery - PAST SURGICAL HISTORY OF 2011 right foot surgery - PAST SURGICAL HISTORY OF Left 2016 knee surgery, fillers used FAMILY HISTORY Problem Relation Age of Onset - Cancer Mother kidney - Cancer Father brain - Cancer Brother testicle - Cancer Sister non hodgkins lymphoma Social History Marital status: Spouse name: Years of education: Number of children: 1 Occupational History Occupation Employer Comment [employer] Social History Main Topics Smoking status: Current Every Day Smoker Packs/day: 0.50 Years: 33.00 Types: Cigarettes Smokeless tobacco: Never Used Alcohol use: No Drug use: No Sexual activity: Yes Partners with: Female control/protection: Surgical Reviewed current medications, allergies, past medical history, surgical history, family history and social history today. REVIEW OF SYSTEMS All other reviewed and negative other than HPI. HEALTH MAINTENANCE: Reviewed health maintenance issues today and recommended the following in detail. BP CONTROLLED (<130/80) due on 1983 TWO PNEUMOVAX 5 YEARS APART PRIOR TO AGE 65(1) due on 01/24/1984 INFLUENZA(1) due on 06/01/[address] by Dr. Bacon. VITALS: BP 132/80 Pulse 84 Temp (!) 35.9 ?C (96.6 ?F) (Tympanic) Wt 116.1 kg (256 lb) SpO2 94% BMI 40.10 kg/m? Last 4 Encounter Wt Readings: Date: Wt: 09/25/2018 116.1 kg (256 lb) 07/24/2018 113.2 kg (249 lb 8 oz) 06/28/2018 113.9 kg (251 lb) 04/11/2018 111.6 kg (246 lb) PHYSICAL EXAMINATION: General appearance: Well appearing, alert, in no acute distress, well-hydrated, well nourished. Skin: Skin color, texture, turgor normal, no suspicious rashes or lesions Head: Normocephalic, no masses, lesions, tenderness or abnormalities Eyes: Anicteric sclera. Pupils are equally round and reactive to light. Extraocular movements are intact. Ears: External ears normal, canals clear Nose/Sinuses: Nares normal, septum midline, mucosa normal, no drainage or sinus tenderness Oropharynx: Lips, mucosa, and tongue normal, teeth and gums normal, oropharynx normal Neck: Supple, no adenopathy; thyroid symmetric, normal size, no bruits Lungs: lungs clear to auscultation. No wheezing, rhonchi, rales Heart: RRR without murmur, gallop, or rubs. No ectopy Abdomen: Normal abdominal exam, Abdomen soft, non-tender. Bowel sounds normal. No masses, organomegaly Extremities: No deformities, edema, skin discoloration, clubbing or cyanosis. Good capillary refill. Musculoskeletal: No joint swelling, deformity, or tenderness Peripheral pulses: Normal Neuro: Gait normal. Reflexes normal and symmetric. Sensation grossly intact. HIP: Location: bilateral hip Range of motion: negative. Tenderness over trochanteric bursa: yes Pain with movement: Yes. ASSESSMENT/PLAN: 1. Diaphoresis - ICD9: 780.8, ICD10: R61 (primary diagnosis) - may be related to recent gastro? Will follow. - ECG COMPLETE W INTERPRETATION - UA DIP, URINE (POC) - TESTOSTERONE TOTAL 2. Pain of both hip joints - ICD9: 719.45, ICD10: M25.551, M25.552 - consider ortho or physical therapy - XR HIP BILAT 5V PEL/AP/LAT EACH HIP 3. Weight gain - ICD9: 783.1, ICD10: R63.5 - check labs. - TSH BLD 4. CECILY (obstructive sleep apnea) - ICD9: 327.23, ICD10: G47.33 5. Anemia, unspecified type - ICD9: 285.9, ICD10: D64.9 - recheck labs. - CBC + DIFF 6. Gastroesophageal reflux disease without esophagitis - ICD9: 530.81, ICD10: K21.9 7. Coronary artery disease of [place] artery of [place] heart with stable angina pectoris (HCC) - ICD9: 414.01, 413.9, ICD10: I25.118 - stable. - ECG COMPLETE W INTERPRETATION 8. Hyperlipidemia, unspecified hyperlipidemia type - ICD9: 272.4, ICD10: E78.5 9. MGUS (monoclonal gammopathy of unknown significance) - ICD9: 273.1, ICD10: D47.2 - per heme onco 10. Bloating - ICD9: 787.3, ICD10: R14.0 - do ct to rule out mass etc. See gi. - CT ABD/PEL W IVCON - IV CONTRAST (RADIOLOGY PROCEDURE) - ENTERIC CONTRAST (RADIOLOGY PROCEDURE) - CONSULT TO GASTROENTEROLOGY 11. Abdominal pain, generalized - ICD9: 789.07, ICD10: R10.84 - CT ABD/PEL W IVCON - IV CONTRAST (RADIOLOGY PROCEDURE) - ENTERIC CONTRAST (RADIOLOGY PROCEDURE) - CONSULT TO GASTROENTEROLOGY 12. SOB (shortness of breath) - ICD9: 786.05, ICD10: R06.02 - as above. - NT PRO BNP 13. Hyperglycemia - ICD9: 790.29, ICD10: R73.9 - COMP METABOLIC PANEL - HGB A1C 14. Abdominal distention - ICD9: 787.3, ICD10: R14.0 - CONSULT TO GASTROENTEROLOGY Vadim Gutierrez MD RTO in one month CNOV Observed: 09/25/2018 Status: COMPLETED Source: [place] 2:[address] [facility] REPOSITORY Office Visit (FAMPWS) TWIN NEWMAN ([id number]) 1965 M Date Time Provider Department 09/25/18 2:00 PM VADIM GUTIERREZ During your visit today, we recorded the following information about you: Temperature Pulse Blood pressure Weight 96.6 degrees 84/minute 132/80 116.1 kg Pepper Messina Ma 09/25/2018 2:16 PM Signed HIP PAIN: bilateral x 1 week. Patient also c/o cold sweats, fatigue, and SOB. His abdomen is distended and tight. Last saw Dr. Bacon 2 weeks ago Vadim Gutierrez MD 09/25/2018 2:56 PM Signed Patient presents with: Hip Pain Perspiration: cold sweats Breathing Problem HPI: Patient presents today for office visit for several issues. Nursing Notes: Pepper Messina Dayana 09/25/2018 2:01 PM Unsigned HIP PAIN: bilateral x 1 week. Patient also c/o cold sweats, fatigue, and SOB. His abdomen is distended and tight. Last saw Dr. Bacon 2 weeks ago Is over due on labs like hba1c. Cardiology adjusted bp meds. Cut the coreg. His edema is improving. He feels like his stomach is swelling and distended. Has been going on for several months. No nausea or vomiting. No fever or chills. No black or bloody stools. No issues urinating. Appetite has fiorella ok. Hips have been bothering him for a week. Oxycodone from Dr. Caal is not helping. Right side is worse on the left. Hurts to sleep on it. No trauma. No redness or swelling. No radiation of pain. No tingling. Started with cold sweats and nausea three days ago. No diarrhea. No chest pain or new shortness of breath. Still seeing heme onc for mgus. MEDICATIONS: Current Outpatient Prescriptions: aspirin, enteric coated (ASPIRIN, ENTERIC COATED) 81 mg EC tablet Take 81 mg by mouth once daily. busPIRone (BUSPAR) 10 mg tablet Take 1 tablet by mouth twice daily. carvedilol (COREG) 25 mg tablet TAKE 2 TABLETS BY MOUTH TWICE DAILY. (Patient taking differently: TAKE 1 TABLET BY MOUTH TWICE DAILY.) clopidogrel (PLAVIX) 75 mg tablet Take 75 mg by mouth once daily. CPAP Initiate Auto PAP @ 5/20 cm of water with humidification. Mask (per patient preference) optional chin strap (if indicated) , filters, tubing, humidifier and lifetime supplies. Please fax downloads to [phone]. DULoxetine (CYMBALTA) 60 mg capsule TAKE 1 CAPSULE BY MOUTH ONCE DAILY. fluticasone (FLOVENT) 44 mcg/actuation inhaler Inhale 1 Puff as instructed twice daily. isosorbide mononitrate ER (IMDUR) 60 mg 24 hr tablet Take 60 mg by mouth once daily. losartan-hydrochlorothiazide (HYZAAR) 100-25 mg per tablet TAKE 1 TABLET BY MOUTH ONCE DAILY. nicotine (NICOTROL) 10 mg inhaler Inhale 1 Puff as instructed as needed. 6-16 cartridges a day and taper use as able nitroglycerin sublingual (NITROQUICK) 0.4 mg SL tablet Dissolve 1 tablet under the tongue every 5 minutes as needed for Chest Pain. Omeprazole (PRILOSEC) 40 mg capsule Take 1 capsule by mouth once daily. pravastatin (PRAVACHOL) 20 mg tablet Take 2 tablets by mouth daily at bedtime. ranolazine ER (RANEXA) 500 mg 12 hr tablet Take 500 mg by mouth twice daily. tiZANidine (ZANAFLEX) 4 mg tablet Take 1 tablet by mouth every 8 hours as needed (muscle spasms). VENTOLIN HFA 90 mcg/actuation inhaler INHALE 2 PUFFS INSTRUCTED EVERY 6 HOURS NEEDED FOR WHEEZING/SHORTNESS OF BREATH. zolpidem (AMBIEN) 10 mg tab Take 1 tablet by mouth daily at bedtime for 180 days. No current facility-administered medications for this visit. ALLERGIES: ALLERGIES Allergen Reactions - Flexeril [Cyclobenz* GI Upset - Tramadol GI Upset - Vicodin [Hydrocodon* GI Upset PAST MEDICAL HISTORY Diagnosis Date - Abdominal pain, epigastric - Abdominal pain, unspecified site - Anemia - Depressive disorder, not elsewhere classified - Difficult airway 02/05/2017 could not intubate could not ventilate - Difficult intubation 02/05/2017 - DVT (deep venous thrombosis) (HCC) 11/27/12 of right calf - Esophageal reflux - Gallbladder polyp - Hyperlipidemia 2011 - Hypertension - Insomnia - MGUS (monoclonal gammopathy of unknown significance) - Nausea AND vomiting - CECILY (obstructive sleep apnea) 01/25/2015 - Snoring - Stroke (HCC) - Tobacco use disorder - Transient ischemic attack (TIA) - Unspecified essential hypertension PAST SURGICAL HISTORY Procedure Laterality Date - CARPAL TUNNEL Bilateral 2015 - CHOLECYSTECTOMY 04/02/2017 laparoscopic cholecystectomy with cholangiograms R Cebul - COLONOSCOP W/ OR W/O [facility] SPEC Colonoscopy - COLONOSCOPY 01/02/2017 - EGD W/O BRSH SPECIMEN W/BX 04/04/07 - EGD W/O OR W/BRUSH/WASH 01/03/2013 EGD - G-ESOPH REFLX TST W/ELECTROD 04/04/07 - PAST SURGICAL HISTORY OF excision lymph node - PAST SURGICAL HISTORY OF vasectomy - PAST SURGICAL HISTORY OF 2009 left knee surgery - PAST SURGICAL HISTORY OF 2011 right foot surgery - PAST SURGICAL HISTORY OF Left 2016 knee surgery, fillers used FAMILY HISTORY Problem Relation Age of Onset - Cancer Mother kidney - Cancer Father brain - Cancer Brother testicle - Cancer Sister non hodgkins lymphoma Social History Marital status: Spouse name: Years of education: Number of children: 1 Occupational History Occupation Employer Comment [employer] Social History Main Topics Smoking status: Current Every Day Smoker Packs/day: 0.50 Years: 33.00 Types: Cigarettes Smokeless tobacco: Never Used Alcohol use: No Drug use: No Sexual activity: Yes Partners with: Female control/protection: Surgical Reviewed current medications, allergies, past medical history, surgical history, family history and social history today. REVIEW OF SYSTEMS All other reviewed and negative other than HPI. HEALTH MAINTENANCE: Reviewed health maintenance issues today and recommended the following in detail. BP CONTROLLED (<130/80) due on 1983 TWO PNEUMOVAX 5 YEARS APART PRIOR TO AGE 65(1) due on 01/24/1984 INFLUENZA(1) due on 06/01/2018 Had ldl done by Dr. Bacon. VITALS: BP 132/80 Pulse 84 Temp (!) 35.9 ?C (96.6 ?F) (Tympanic) Wt 116.1 kg (256 lb) SpO2 94% BMI 40.10 kg/m? Last 4 Encounter Wt Readings: Date: Wt: 09/25/2018 116.1 kg (256 lb) 07/24/2018 113.2 kg (249 lb 8 oz) 06/28/2018 113.9 kg (251 lb) 04/11/2018 111.6 kg (246 lb) PHYSICAL EXAMINATION: General appearance: Well appearing, alert, in no acute distress, well-hydrated, well nourished. Skin: Skin color, texture, turgor normal, no suspicious rashes or lesions Head: Normocephalic, no masses, lesions, tenderness or abnormalities Eyes: Anicteric sclera. Pupils are equally round and reactive to light. Extraocular movements are intact. Ears: External ears normal, canals clear Nose/Sinuses: Nares normal, septum midline, mucosa normal, no drainage or sinus tenderness Oropharynx: Lips, mucosa, and tongue normal, teeth and gums normal, oropharynx normal Neck: Supple, no adenopathy; thyroid symmetric, normal size, no bruits Lungs: lungs clear to auscultation. No wheezing, rhonchi, rales Heart: RRR without murmur, gallop, or rubs. No ectopy Abdomen: Normal abdominal exam, Abdomen soft, non-tender. Bowel sounds normal. No masses, organomegaly Extremities: No deformities, edema, skin discoloration, clubbing or cyanosis. Good capillary refill. Musculoskeletal: No joint swelling, deformity, or tenderness Peripheral pulses: Normal Neuro: Gait normal. Reflexes normal and symmetric. Sensation grossly intact. HIP: Location: bilateral hip Range of motion: negative. Tenderness over trochanteric bursa: yes Pain with movement: Yes. ASSESSMENT/PLAN: 1. Diaphoresis - ICD9: 780.8, ICD10: R61 (primary diagnosis) - may be related to recent gastro? Will follow. - ECG COMPLETE W INTERPRETATION - UA DIP, URINE (POC) - TESTOSTERONE TOTAL 2. Pain of both hip joints - ICD9: 719.45, ICD10: M25.551, M25.552 - consider ortho or physical therapy - XR HIP BILAT 5V PEL/AP/LAT EACH HIP 3. Weight gain - ICD9: 783.1, ICD10: R63.5 - check labs. - TSH BLD 4. CECILY (obstructive sleep apnea) - ICD9: 327.23, ICD10: G47.33 5. Anemia, unspecified type - ICD9: 285.9, ICD10: D64.9 - recheck labs. - CBC + DIFF 6. Gastroesophageal reflux disease without esophagitis - ICD9: 530.81, ICD10: K21.9 7. Coronary artery disease of [place] artery of [place] heart with stable angina pectoris (HCC) - ICD9: 414.01, 413.9, ICD10: I25.118 - stable. - ECG COMPLETE W INTERPRETATION 8. Hyperlipidemia, unspecified hyperlipidemia type - ICD9: 272.4, ICD10: E78.5 9. MGUS (monoclonal gammopathy of unknown significance) - ICD9: 273.1, ICD10: D47.2 - per heme onco 10. Bloating - ICD9: 787.3, ICD10: R14.0 - do ct to rule out mass etc. See gi. - CT ABD/PEL W IVCON - IV CONTRAST (RADIOLOGY PROCEDURE) - ENTERIC CONTRAST (RADIOLOGY PROCEDURE) - CONSULT TO GASTROENTEROLOGY 11. Abdominal pain, generalized - ICD9: 789.07, ICD10: R10.84 - CT ABD/PEL W IVCON - IV CONTRAST (RADIOLOGY PROCEDURE) - ENTERIC CONTRAST (RADIOLOGY PROCEDURE) - CONSULT TO GASTROENTEROLOGY 12. SOB (shortness of breath) - ICD9: 786.05, ICD10: R06.02 - as above. - NT PRO BNP 13. Hyperglycemia - ICD9: 790.29, ICD10: R73.9 - COMP METABOLIC PANEL - HGB A1C 14. Abdominal distention - ICD9: 787.3, ICD10: R14.0 - CONSULT TO GASTROENTEROLOGY Vadim Gutierrez MD RTO in one month Vadim Gutierrez MD 09/25/2018 2:58 PM Signed Addended by: VADIM GUTIERREZ MD on: 09/25/2018 02:58 PM Modules accepted: Orders Referring Provider: SELF [200] Allergies As of Date: 09/25/2018 Noted Allergy Reaction FLEXERIL (CYCLOBENZAPRINE HCL) 12/20/2012 8 - GI Upset TRAMADOL 12/16/2014 8 - GI Upset VICODIN (HYDROCODONE-ACETAMINOPHE*12/13/2009 8 - GI Upset Date Reviewed: 07/24/2018 Reviewed by: Nasima Schwab - Fully Assessed Reason for Visit: Hip Pain [136] Perspiration [81] Cmt: cold sweats Breathing Problem [17] Primary Visit Diagnosis:Diaphoresis [R61] Other Visit Diagnoses:Pain of both hip joints [M25.551, M25.552] Weight gain [R63.5] CECILY (obstructive sleep apnea) [G47.33] Anemia, unspecified type [D64.9] Gastroesophageal reflux disease without esophagitis [K21.9] Coronary artery disease of [place] artery of [place] heart with stable angina pectoris (HCC) [I25.118] Hyperlipidemia, unspecified hyperlipidemia type [E78.5] MGUS (monoclonal gammopathy of unknown significance) [D47.2] Bloating [R14.0] Abdominal pain, generalized [R10.84] SOB (shortness of breath) [R06.02] Hyperglycemia [R73.9] Abdominal distention [R14.0] Order(s):ECG COMPLETE W INTERPRETATION [ECG01] Order #: [id number] FUTURE UA DIP, URINE (POC) [3339401] Order #: [id number]. #:[id number] [id number] HIP BILAT 5V PEL/AP/LAT EACH HIP [3546407] Order #: [id number] FUTURE CBC + DIFF [SQCBCDIF] Order #: [id number] FUTURE COMP METABOLIC PANEL [SQCMP] Order #: [id number] FUTURE TSH BLD [SQTSH] Order #: [id number] FUTURE HGB A1C [EABGQ3Y] Order #: [id number] FUTURE NT PRO BNP [SQNTBNP] Order #: [id number] FUTURE TESTOSTERONE TOTAL [SQTESTO] Order #: [id number] CT ABD/PEL W IVCON [6060996] Order #: [id number] FUTURE iv contrast (will be provided with radiology test)CT ABD/PEL -Inject, intravenously, once for 1 dose.No IV access, insert saline lock prior to the beginning of sedation, infusion, injection of imaging exam. Discontinue saline lock post exam. If Pt. has a central line or IVAD, may access for administration according to line specific nursing protocol. Once exam is complete flush line and de- access according to line specific nursing protocol in the CT contrast administration guidelines link.Disp: 1 EachRfl: 0 enteric contrast (will be provided with radiology test)For CT ABD/PEL W IVCON Routine order Administer, As Directed One Time Only, via Oral, Rectal, both Oral and Rectal, Enteric Tube, Stoma or Indwelling Catheter, Enteric Contrast as designated per enteric contrast guidelinesDisp: 1 EachRfl: 0 CONSULT TO GASTROENTEROLOGY [9010] Order #: [id number]: 1 nystatin (MYCOSTATIN) creamApply 1 application to affected area twice daily.Disp: 45 gRfl: 0 Prescriptions as of 09/25/2018 Sig: ASPIRIN 81 MG TABLET,DELAYED * Take 81 mg by mouth once kristen* BUSPIRONE 10 MG TABLET Take 1 tablet by mouth twice * CARVEDILOL 25 MG TABLET TAKE 2 TABLETS BY MOUTH TWICE* Patient taking differently: TAKE 1 TABLET BY MOUTH TWICE * CLOPIDOGREL 75 MG TABLET Take 75 mg by mouth once kristen* CPAP Initiate Auto PAP @ 5/20 cm o* DULOXETINE 60 MG CAPSULE,BRYNN* TAKE 1 CAPSULE BY MOUTH ONCE * FLUTICASONE 44 MCG/ACTUATION * Inhale 1 Puff as instructed t* ISOSORBIDE MONONITRATE ER 60 * Take 60 mg by mouth once kristen* LOSARTAN 100 MG-HYDROCHLOROTH* TAKE 1 TABLET BY MOUTH ONCE D* NICOTINE 10 MG INHALATION CAR* Inhale 1 Puff as instructed a* NITROGLYCERIN 0.4 MG SUBLINGU* Dissolve 1 tablet under the t* OMEPRAZOLE 40 MG CAPSULE,BRYNN* Take 1 capsule by mouth once * PRAVASTATIN 20 MG TABLET Take 2 tablets by mouth daily* RANOLAZINE ER 500 MG TABLET,E* Take 500 mg by mouth twice da* TIZANIDINE 4 MG TABLET Take 1 tablet by mouth every * VENTOLIN HFA 90 MCG/ACTUATION* INHALE 2 PUFFS INSTRUCTED * ZOLPIDEM 10 MG TABLET Take 1 tablet by mouth daily * ENTERIC CONTRAST (RADIOLOGY P* For CT ABD/PEL W IVCON Routin* IV CONTRAST (RADIOLOGY PROCED* CT ABD/PEL -Inject, intraveno* NYSTATIN 100,000 UNIT/GRAM TO* Apply 1 application to affect* Problem List As Of Date 09/25/2018 Noted Resolved Dysuria [R30.0] INVALID FOR*04/11/2018 Prostatitis, unspecified [N41.9] INVALID FOR*12/11/2016 TOBACCO USE DISORDER [F17.200] ESOPHAGEAL REFLUX [K21.9] Chronic depression [F32.9] JOINT PAIN-FOREARM [M25.539] INVALID FOR* GANGLION UNSPECIFIED [M67.40] INVALID FOR* HEMORRHOIDS EXTERNAL THROMBOSED [K64.5] INVALID FOR* Postoperative pain, acute, groin, right [R10.31* More... Unspecified Essential Hypertension [I10] Abdominal Pain, Epigastric [R10.13] Nausea AND Vomiting [R11.2] Sprain and strain of unspecified site of foot [*INVALID FOR* Pain in limb [M79.609] INVALID FOR* Enthesopathy of ankle and tarsus, unspecified [*INVALID FOR* 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 Hypertension goal BP (blood pressure) < 140/90 * 04/11/2018 Hyperlipidemia [E78.5] Inflamed skin tag [L91.8] INVALID FOR*12/11/2016 CECILY (obstructive sleep apnea) [G47.33] INVALID FOR* More... Left-sided low back pain with left-sided sciati*INVALID FOR* Left buttock pain [M79.18] INVALID FOR* Ischial bursitis of left side [M70.72] INVALID FOR* Gallbladder polyp [K82.4] INVALID FOR* Internal hemorrhoids [K64.8] INVALID FOR* Diverticulosis of large intestine without hemor*INVALID FOR* Hyperplastic colonic polyp [K63.5] INVALID FOR* Difficult intubation [T88.4XXA] INVALID FOR* Difficult airway [T88.4XXA] INVALID FOR* More... Primary osteoarthritis of both hips [M16.0] INVALID FOR* Piriformis syndrome, left [G57.02] INVALID FOR* Trochanteric bursitis of both hips [M70.61, M70*INVALID FOR* Chest pain [R07.9] INVALID FOR*02/22/2018 More... SOB (shortness of breath) [R06.02] INVALID FOR*02/22/2018 More... Obesity, Class II, BMI 35-39.9 [E66.9] INVALID FOR* S/P primary angioplasty with coronary stent [Z9*INVALID FOR* Coronary artery disease of [place] artery of [place]*INVALID FOR* More... MGUS (monoclonal gammopathy of unknown signific*INVALID FOR* Lumbar spinal stenosis [M48.061] INVALID FOR* More... Gammopathy, monoclonal [D47.2] INVALID FOR* More... Lumbar facet arthropathy [M47.816] INVALID FOR* DDD (degenerative disc disease), lumbar [M51.36]INVALID FOR* Visit Notes: >> Pepper Messina Ma Wed Sep 25, 2018 1:53 PM Status: Signed HIP PAIN: bilateral x 1 week. Patient also c/o cold sweats, fatigue, and SOB. His abdomen is distended and tight. Last saw Dr. Bacon 2 weeks ago Prescriptions ordered this encounter Disp Refills Start End IV CONTRAST (RADIOLOGY PROCEDURE) 1 Ea* 0 09/25/2018 09/26/2018 Class: In Office Sig: CT ABD/PEL -Inject, intravenously, once for 1 dose.No IV access, insert saline lock prior to the beginning of sedation, infusion, injection of imaging exam. Discontinue saline lock post exam. If Pt. has a central line or IVAD, may access for administration according to line specific nursing protocol. Once exam is complete flush line and de-access according to line specific nursing protocol in the CT contrast administration guidelines link. ENTERIC CONTRAST (RADIOLOGY PROCEDUR* 1 Ea* 0 09/25/2018 09/26/2018 Class: In Office Sig: For CT ABD/PEL W IVCON Routine order Administer, As Directed One Time Only, via Oral, Rectal, both Oral and Rectal, Enteric Tube, Stoma or Indwelling Catheter, Enteric Contrast as designated per enteric contrast guidelines NYSTATIN 100,000 UNIT/GRAM TOPICAL C* 45 g 0 09/25/2018 Route: TOPICAL Sig: Apply 1 application to affected area twice daily. Disposition: Return in about 4 weeks (around 10/23/2018). Follow-up and Disposition History Recorded Encounter Status:Closed by VADIM GUTIERREZ MD on 09/25/18 CNCO Observed: 09/25/2018 Status: COMPLETED Source: [place] 12:00 AM [facility] REPOSITORY Letter Text [facility] Department of Family Medicine [address] [address] TO WHOM IT MAY CONCERN: This is to confirm that Twin Newman had an appointment and was seen at the [facility] in the Department of Family Medicine Vadim Gutierrez MD on 09/25/2018. Please excuse him from work for the afternoon. Sincerely yours, Vadim Gutierrez MD CARDIOLOGY VISIT Observed: 08/30/2018 Status: F Source: [place]ARLA REPORT 10:57 AM [facility] REPOSITORY [facility] [address] [place] [address] OFFICE VISIT Date of Service: 08/30/18 MR#: [id number] Acct: [id number] Name: TWIN NEWMAN Rep #: [id number] : 1965 Provider: Misha Bacon MD Age/Sex: 53/M Location: [facility] Status: Signed HPI HPI Chief Complaint: Routine f/uj Details: DDetails: TWIN NEWMAN, is a 53 M who presents to the office today for a cardiovascular outpatient follow-up. He has a history of coronary artery disease status post , PTCA/SHELBY to mid LCx and PTCA/SHELBY to mid and proximal RCA in March 2018, hypertension, hyperlipidemia, TIA, hiatal hernia, anemia, DVT, and tobacco abuse with 1 pack/day. Patient has recurrent dyspnea on exertion symptoms, and underwent a stress echocardiogram on 04/05/18. This was found to be abnormal for inferior ischemia, the patient underwent repeat catheterization at [facility] on 04/10/18. This demonstrated nonobstructive disease of his left system, widely patent left circumflex stent, and nonobstructive disease of his right coronary artery system. He has old inferior posterior mild to hypokinesis. His EF at that time was 50%. And then returned on 04/17/18 underwent elective angioplasty and stenting of his mid PDA, and distal RCA/posterior lateral branch with balloon angioplasty only of the ostium of his PDA with an excellent result. The patient now complains today of bilateral pitting edema, abdominal distention, dyspnea, and continues to smoke about one half a pack of cigarettes per day. He is compliant with his Hyzaar. Patient states that he tries to watch his salt and water intake and did not have significant salt intake during . His edema was present when we did his catheterization in March. He denies any anginal symptoms. In our office today's blood pressure is 120/60, pulse is 68 and regular. Physical exam is as below. Lipids as of 04/18/18 show an LDL too high to count, HDL 33. Triglycerides were 444. 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 Is patient in pain?: No Allergies cyclobenzaprine [From Flexeril] Adverse Reaction (Verified 08/30/18 10:39) Upset Stomach hydrocodone bitartrate [From Vicodin] Adverse Reaction (Verified 08/30/18 10:39) Upset Stomach tramadol Adverse Reaction (Verified 08/30/18 10:39) Upset Stomach Medications Zolpidem Tartrate [Ambien] 10 mg PO QHS PRN PRN 01/08/15 [History Confirmed 08/28/18] Losartan/Hydrochlorothiazide [Losartan-Hctz 100-25 mg Tab] 1 ea PO DAILY 03/09/17 [History Confirmed 08/28/18] Albuterol IH (ProAir) [Proair Hfa] 1 - 2 puff INHALATION Q6H PRN PRN 02/20/18 [History Confirmed 08/28/18] Duloxetine HCl 60 mg PO DAILY 02/20/18 [History Confirmed 08/28/18] aspirin 81 mg tablet,delayed release 81 mg PO DAILY 03/16/18 [History Confirmed 08/28/18] isosorbide mononitrate ER 60 mg tablet,extended release 24 hr 60 mg PO QDAY #30 tab 04/05/18 [Rx Confirmed 08/28/18] Buspirone HCl 10 mg PO BID 04/09/18 [History Confirmed 08/28/18] Nitroglycerin [Nitrostat] 0.4 mg SUBLINGUAL Q5M PRN 04/09/18 [History Confirmed 08/28/18] Omeprazole 40 mg PO DAILY 04/09/18 [History Confirmed 08/28/18] clopidogrel 75 mg tablet 75 mg PO DAILY #90 tab 04/30/18 [Rx Confirmed 08/28/18] ranolazine ER 500 mg tablet,extended release,12 hr 500 mg PO BID #60 tab 05/20/18 [Rx Confirmed 08/28/18] carvedilol 25 mg tablet 25 mg PO BID tab 08/30/18 [History Confirmed 08/30/18] furosemide 40 mg tablet 40 mg PO DAILY #30 tab 08/30/18 [Rx Confirmed 08/30/18] rosuvastatin 20 mg tablet 20 mg PO DAILY #30 tab 08/30/18 [Rx Confirmed 08/30/18] PFSH Medical History Chest pain (Acute) Abnormal stress test (Acute) Atherosclerosis of coronary artery of [place] heart without angina pectoris (Chronic) Nicotine dependence (Chronic) Hyperlipidemia (Chronic) Hypertension (Chronic) DVT (deep venous thrombosis) (Chronic) MGUS (monoclonal gammopathy of unknown significance) (Chronic) TIA (transient ischemic attack) (Chronic) Surgical History History of coronary artery stent placement (Chronic 03/06/18) H/O carpal tunnel repair (Chronic) History of arthroscopic knee surgery (Chronic) History of left heart catheterization (Chronic 04/10/18) Hx of cholecystectomy (Chronic) Social History Smoking Status: Current every day smoker ROS Const Const: Positive for fatigue and other (Increased RHODES and bilateral pitting edema); negative for weakness, body ache, fever(s), headache(s), chills, frequent falls, night sweats, daytime sleepiness, difficulty sleeping, excessive sweating, weight gain, weight loss, increased appetite, poor appetite or anorexia Eyes Eyes: Negative for blind spots, loss of peripheral vision, transient loss of vision, blurry vision, change in vision, double vision, floaters, tunnel vision or other ENT ENT: Negative for headache(s), dizziness, hearing loss, tinnitus, Nosebleed/epistaxis, balance problems, post nasal drip, lip swelling, tongue swelling, bleeding gums, hoarseness, neck pain, dry mouth or other Cardio Chest Pain: Yes (stabbing pain in left side 2-3 times a week lasting seconds.) Frequency: other (2-3 times a week) Character: sharp Onset: other (spontaneous) Location: left chest (pinpoint region left pectoral) Duration: brief Palpitations: Yes (Occasional racing') feels like its: fast Edema: Bilateral (Pitting to below knees, gets worse throughout day) Muscle aches with walking: None Resp Respiratory: Positive for SOB with activity and SOB orthopnea\SOB lying down; negative for SOB at rest, Cough, Coughing up blood/hemoptysis, chest congestion, pain on inspiration, snoring, stridor, wheezing, crackles, paroxysmal nocturnal dyspnea or other GI GI: Negative nausea, vomiting, heartburn, constipation, belching, bloating, cramping, vomiting blood/hematemesis, bright, red blood in stools, black,tarry stools, loose stools, Difficulty Swallowing or other : Negative for hematuria, frequent nighttime urination/ nocturia, erectile dysfunction or abnormal vaginal bleeding Musc Musc: Negative for balance problems, muscle aches/ myalgia, muscle weakness or joint pain Skin Skin: Negative redness, non-healing lesions, rash, unusual bruising, skin ulcer, wounds, jaundice or other Neuro Neuro: Negative for weakness, headache(s), frequent falls, blurry vision, double vision, dizziness, lightheadedness, near syncope, syncope, orthostatic symptoms, confusion, memory loss, restless legs, vertigo, seizures, lack of coordination or other Sabino Hematologic/Lymphatic: Negative for easy bleeding, easy bruising, enlarged lymph nodes or other Endo Endo: Positive for fatigue; negative for excessive sweating, cold intolerance, heat intolerance, flushing, increased thirst/drinking, increased hunger, hair loss, hair growth or other Psych Psych: Negative for anxiety, depression, thoughts of harming anyone, thoughts of harming yourself, visual hallucinations, panic attacks or audible hallucinations Allergy Allergy/Immunology: Negative for lip swelling, Negative for tongue swelling, Negative for rash, Negative for throat swelling, Negative for hives Cardiology Exam Const Appearance: cooperative, healthy appearing and no acute distress Nutritional Appearance: well nourished Orientation: alert, oriented x3 and oriented to person Head Head: normal to inspection, atraumatic and normocephalic Nose: external nose normal Face and Sinus: face symmetric Mouth: oral mucosae normal Eyes General: appearance normal, both eyes and all related structures Eyelids: eyelids normal Conjunctivae: conjunctivae normal Pupils: PERRL and normal by confrontation EOM: EOM intact bilaterally Neck Neck: normal visual inspection and full ROM Carotids: normal carotid upstroke Chest Chest inspection: normal inspection of the chest Auscultation: Bilateral: Clear to Auscultation Cardio Palpation: normal PMI Rate: regular rate Rhythm: regular rhythm Heart sounds: S1 normal and S2 normal GI GI: normal to inspection, no hepatosplenomegaly and bowel sounds present Neuro General: alert, oriented x3, awake, CN's II-XI intact bilaterally and moves all extremities Skin Skin: no rashes or lesions noted Extremities Pulses: Normal: Right Femoral Pulse, Left Femoral Pulse, Right Dorsalis Pedis Pulse, Left Dorsalis Pedis Pulse, Right Posterior Tibial Pulse, Left Posterior Tibial Pulse, Right Radial Pulse, Left Radial Pulse Lower Extremity Edema: None: Bilateral Psych Psychological: normal affect Assessment AND Plan 1. Atherosclerosis of [place] coronary artery of [place] heart without angina pectoris I25.10 PTCA/SHELBY of the of mid LCX with a 3.0 x 16 Promus Synergy and PTCA/SHELBY of the Proximal RCA recent occlusion with a 3.5 x 38 Promus Synergy 03/06/18 Plan 1. Coronary artery disease: No exertional anginal symptoms at this time. The patient does complain of congestive heart failure type symptoms, and for some reason is on 50 mg of Coreg. He also complains of worsening lower extremity edema and abdominal bloating. I recommended that we reduce his Coreg down to 25 mg p.o. twice daily, start him on Lasix 40 mg a day, continue his Imdur, baby aspirin, Hyzaar and Plavix. He will return in 2 weeks time for a blood pressure check. Orders Orders: 2. Pure hypercholesterolemia E78.5 Plan 2. Hyperlipidemia: The patient's LDL cholesterol is too elevated to measure given his hypertriglyceridemia. Recommend discontinuation of his Pravachol and switching him to rosuvastatin 20 mill grams p.o. nightly with a repeat lipid profile in 6 weeks time. In addition we will check a hemoglobin A1c to determine if the patient is an undiagnosed diabetic. 3. Tobacco abuse: I strongly recommended the patient discontinue all tobacco products. Patient agrees and will try to comply. 4. Return office in 6 months. Orders Orders: Plan Detail Other Medications New: Changed: Discontinued: doxycycline monohydrate Discontinued Reason: [id number] mg PO BID 20 caps 0RF r Completed Follow Up +6M (Larry) +2 Weeks (BP check) Coding Level of Care Code Off vis,est,level 3 Diagnoses Atherosclerosis of [place] coronary artery of [place] heart without angina pectoris I25.10 Pure hypercholesterolemia E78.5 Coding Level of Care Code Off vis,est,level 3 Diagnoses Atherosclerosis of [place] coronary artery of [place] heart without angina pectoris I25.10 Pure hypercholesterolemia E78.5 08/30/18 1057 <Electronically signed by Misha Bacon MD> Date Misha Buitrago Signature: Date (if applicable) CC: Lucia MoAnibal Mumtaz LEIGH Observed: 07/25/2018 Status: COMPLETED Source: [place] 12:[address] [facility] REPOSITORY Telephone (HEMAWS) TWIN NEWMAN ([id number]) 1965 M Date Time Provider Department 07/25/18 ALEX HARRELL During your visit today, we recorded the following information about you: Alex Harrell DO 07/25/2018 1:33 PM Signed I spoke with the patient just now about my conversation with Dr. Bacon his park services specialist. It is not advisable to discontinue aspirin for upcoming bone marrow biopsy. Please cancel the bone marrow biopsy. Cancel any subsequent office visit to the bone marrow biopsy and then schedule the patient to see me in early August for an office visit. No labs. Patient is aware we will be canceling biopsy in rescheduling him to see me in August. DO Kaylynn Chu PSR 07/25/2018 2:51 PM Signed Cancelled appointments that could be cancelled by this PSR. Phyllis Escobar PSAnnie, forwarded a cancellation request to the [facility] for the procedure to be cancelled. Left message for patient to return call, when patient calls back, please schedule an EST SIMPLE with Dr. Harrell in August. Kaylynn Doss Psr 07/30/2018 11:43 AM Signed Patient has been scheduled for an office visit in August, message left on his voicemail and a reminder was mailed Ani Linder 07/30/2018 12:04 PM Signed Patient called back and requested to cancel the below scheduled appointment and stated he does not want to schedule a follow-up at this time. Ani Doss Psr Allergies As of Date: 07/25/2018 Noted Allergy Reaction FLEXERIL (CYCLOBENZAPRINE HCL) 12/20/2012 8 - GI Upset TRAMADOL 12/16/2014 8 - GI Upset VICODIN (HYDROCODONE-ACETAMINOPHE*12/13/2009 8 - GI Upset Date Reviewed: 07/24/2018 Reviewed by: Nasima Schwab - Fully Assessed Reason for Visit: Future Appointment [256] Prescriptions as of 07/25/2018 Sig: BUSPIRONE 10 MG TABLET Take 1 tablet by mouth twice * ZOLPIDEM 10 MG TABLET Take 1 tablet by mouth daily * NICOTINE 10 MG INHALATION CAR* Inhale 1 Puff as instructed a* ASPIRIN 81 MG TABLET,DELAYED * Take 81 mg by mouth once kristen* ISOSORBIDE MONONITRATE ER 60 * Take 60 mg by mouth once kristen* RANOLAZINE ER 500 MG TABLET,E* Take 500 mg by mouth twice da* FLUTICASONE 44 MCG/ACTUATION * Inhale 1 Puff as instructed t* CPAP Initiate Auto PAP @ 5/20 cm o* PRAVASTATIN 20 MG TABLET Take 2 tablets by mouth daily* CARVEDILOL 25 MG TABLET TAKE 2 TABLETS BY MOUTH TWICE* X LOSARTAN 100 MG-HYDROCHLOROTH* TAKE 1 TABLET BY MOUTH ONCE D* CLOPIDOGREL 75 MG TABLET Take 75 mg by mouth once rkisten* NITROGLYCERIN 0.4 MG SUBLINGU* Dissolve 1 tablet under the t* TIZANIDINE 4 MG TABLET Take 1 tablet by mouth every * OMEPRAZOLE 40 MG CAPSULE,BRYNN* Take 1 capsule by mouth once * DULOXETINE 60 MG CAPSULE,BRYNN* TAKE 1 CAPSULE BY MOUTH ONCE * VENTOLIN HFA 90 MCG/ACTUATION* INHALE 2 PUFFS INSTRUCTED * Problem List As Of Date 07/25/2018 Noted Resolved Dysuria [R30.0] INVALID FOR*04/11/2018 Prostatitis, unspecified [N41.9] INVALID FOR*12/11/2016 TOBACCO USE DISORDER [F17.200] ESOPHAGEAL REFLUX [K21.9] Chronic depression [F32.9] JOINT PAIN-FOREARM [M25.539] INVALID FOR* GANGLION UNSPECIFIED [M67.40] INVALID FOR* HEMORRHOIDS EXTERNAL THROMBOSED [K64.5] INVALID FOR* Postoperative pain, acute, groin, right [R10.31* More... Unspecified Essential Hypertension [I10] Abdominal Pain, Epigastric [R10.13] Nausea AND Vomiting [R11.2] Sprain and strain of unspecified site of foot [*INVALID FOR* Pain in limb [M79.609] INVALID FOR* Enthesopathy of ankle and tarsus, unspecified [*INVALID FOR* 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 Hypertension goal BP (blood pressure) < 140/90 * 04/11/2018 Hyperlipidemia [E78.5] Inflamed skin tag [L91.8] INVALID FOR*12/11/2016 CECILY (obstructive sleep apnea) [G47.33] INVALID FOR* More... Left-sided low back pain with left-sided sciati*INVALID FOR* Left buttock pain [M79.18] INVALID FOR* Ischial bursitis of left side [M70.72] INVALID FOR* Gallbladder polyp [K82.4] INVALID FOR* Internal hemorrhoids [K64.8] INVALID FOR* Diverticulosis of large intestine without hemor*INVALID FOR* Hyperplastic colonic polyp [K63.5] INVALID FOR* Difficult intubation [T88.4XXA] INVALID FOR* Difficult airway [T88.4XXA] INVALID FOR* More... Primary osteoarthritis of both hips [M16.0] INVALID FOR* Piriformis syndrome, left [G57.02] INVALID FOR* Trochanteric bursitis of both hips [M70.61, M70*INVALID FOR* Chest pain [R07.9] INVALID FOR*02/22/2018 Priority: A More... SOB (shortness of breath) [R06.02] INVALID FOR*02/22/2018 Priority: B More... Obesity, Class II, BMI 35-39.9 [E66.9] INVALID FOR* S/P primary angioplasty with coronary stent [Z9*INVALID FOR* Coronary artery disease of [place] artery of mally*INVALID FOR* More... MGUS (monoclonal gammopathy of unknown signific*INVALID FOR* Lumbar spinal stenosis [M48.061] INVALID FOR* More... Gammopathy, monoclonal [D47.2] INVALID FOR* More... Encounter Status:Closed by FABIAN LINDERBLANCAY on 07/30/18 PROGRESS Observed: 07/24/2018 Status: COMPLETED Source: [place] 12:[address] [facility] REPOSITORY HNO ID: [id number] Author: Alex Harrell Service: (none) Author Type: Physician Type: Progress Notes Filed: 07/25/2018 1:12 PM Note Text: Diagnoses: 1) Monoclonal gammopathy. 2) Sensory neuropathy. HPI: The patient is a 53 yo male who was evaluated by his PCP for neuropathy and found to have a monoclonal protein. Patient had felt well until about 2 months prior to initial evaluation when he had onset of burning sensation on the bottoms of the feet associated with numbness in the tips of the toes. He also had numbness/hot/burning sensation of the hands extending to the elbows b/l along the ulnar distribution. Hands felt like they were shriveled. Over the same time period had tenderness right posterior/lower ribs. Other symptoms included frequent nocturia (some nights several times an hour). He had PMH significant for DVT following foot surgery. TIA?--visual field cut right eye. Underwent further work up including bone marrow biopsy 07/24/2014: BONE MARROW, ASPIRATE, CORE BIOPSY, CLOT SECTION, PERIPHERAL BLOOD (A-C): - POLYTYPIC PLASMA CELL HYPERPLASIA (5-9% PLASMA CELLS) (SEE COMMENT). - NORMOCELLULAR MARROW FOR AGE WITH TRILINEAGE HEMATOPOIESIS. - ADEQUATE MEGAKARYOCYTES. - STAINABLE IRON PRESENT WITHOUT RING SIDEROBLASTS. Comment: Plasma cells are small and well-differentiated. No lymphoid infiltrates were present. Immunostains for CD138, kappa and lambda cytoplasmic immunoglobulin were performed on the core biopsy to better quantify plasma cells and evaluate for clonality and showed that CD138+ plasma cells are increased and estimated at 5-9% of overall cellularity. The plasma cells appear polytypic, with a slight kappa predominance that is not diagnostic for clonality, by cytoplasmic kappa and lambda light chain staining. A Congo red stain of the core biopsy was negative for amyloid. Was seen by neurology [facility]. EMG 06/2014: Interpretation: Electrodiagnostic examination of the right upper and lower extremities discloses: 1) right median neuropathy at or distal to the wrist, mild to moderate in degree electrically, consistent with carpal tunnel syndrome. ? 2) no definite evidence of a generalized large fiber sensory-motor polyneuropathy. ?In addition, there is no evidence of a right lumbosacral motor radiculopathy. 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 Presents to reestablish care. Interim history: He scheduled the MRI of both lower extremities had an open MRI facility in [place]. He was told he would have to wait for nearly 6 hours to have the study done and therefore declined to undergo the MRI. 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 EMG testing in August 2014 revealed right median neuropathy at her distal to the wrist, mild to moderate in degree electrically, consistent with carpal tunnel syndrome and no definite evidence of a generalized large fiber sensory motor polyneuropathy. In addition there is no evidence of a right lumbosacral motor radiculopathy. He has stable symptoms of neuropathy. He has a constant feeling of pins and needles on the soles of the feet when his lower extremity/ankles are edematous but has bland numbness when he has no swelling. He has a sensation of tingling in the hands. Previously had carpal tunnel syndrome with no relief of symptoms. No progression. It was diagnosed with coronary artery disease in March 2018 and underwent placement of 5 stents. He is on aspirin and Plavix. No unusual bleeding or unexplained bruising. 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 He still having occasional episodes of angina which are relieved with nitroglycerin. PMH, medications and allergies as below personally reviewed by me today. Any changes documented in appropriate section. ROS: Constitutional: Denies episodes of fever and night sweats. Not significantly fatigued. Normal appetite. Neuro: Denies TENA, vertigo, dizziness and imbalance. HEENT: No recent change in voice, vision or hearing. Resp: Denies cough, wheeze and hemoptysis. CVS: Has mild chronic edema both ankles. GI: Denies dysgeusia. Denies symptoms of stomatitis. Denies dysphagia and odynophagia. Denies reflux, n/v, change in bowel habits and abdominal pain. : Denies dysuria or gross hematuria. Endo: Denies hot flashes. Denies polyuria and polydipsia. Denies heat and cold intolerance. Musculoskeletal: Aches all over. Derm: Denies rash. Denies jaundice and diffuse pruritis. Heme: Denies unusual bleeding and unexplained bruising. Psych: Normal mood. PHYSICAL EXAM: Vitals: Blood pressure 138/96, pulse 67, temperature 37 ?C (98.6 ?F), temperature source Oral, weight 113.2 kg (249 lb 8 oz). Well-appearing and in no acute distress. EYES: Sclerae are anicteric bilaterally. ENT: Oral mucosa is unremarkable. NECK: Supple. LYMPHATIC: There is no palpable cervical, supraclavicular or axillary or inguinal adenopathy. RESPIRATORY: Inspiratory breath sounds are of normal intensity in all hanson. CARDIOVASCULAR: Rhythm is regular. Normal intensity S1/S2. ABDOMEN: The abdomen is nondistended. There is no organomegaly. No tenderness. Extremities: Free of edema. SKIN: No jaundice or rash. No petechiae. 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 No focal motor weakness. ASSESSMENT/PLAN: 1) MUGS. IgG lambda 0.34 g/dL at initial diagnosis. 5-9% polytypic plasma cells. -He has to sclerotic bone lesions one in each tibia. Skeletal survey unremarkable otherwise. -Previous EMG demonstrated no evidence of large fiber sensory-motor polyneuropathy. He was diagnosed with potential small fiber neuropathy but was not able to follow-up and have skin biopsy done to prove this. -No evidence of amyloidosis on original bone marrow biopsy. -Symptoms of sensory neuropathy have been stable over the last 4 years. -We again addressed his status today. Ideally he needs repeat bone marrow biopsy and then potential directed biopsy of the sclerotic bone lesions. Serum VEGF will be measured. -Ultimately may need referral to [facility] for further diagnostic consideration workup. Plan: -Bone marrow biopsy. -I will check with his park services specialist about holding aspirin for a week prior to the biopsy. Alex Harrell DO CNOVSP Observed: 07/24/2018 Status: COMPLETED Source: [place] 11:[address] [facility] REPOSITORY Visit (SP) Office ([place]) TWIN NEWMAN ([id number]) 1965 M Date Time Provider Department 07/24/18 11:50 AM ALEX HARRELL During your visit today, we recorded the following information about you: Temperature Pulse Blood pressure Weight 98.6 degrees 67/minute 138/96 113.2 kg Alex Harrell DO 07/25/2018 1:12 PM Signed Diagnoses: 1) Monoclonal gammopathy. 2) Sensory neuropathy. HPI: The patient is a 53 yo male who was evaluated by his PCP for neuropathy and found to have a monoclonal protein. Patient had felt well until about 2 months prior to initial evaluation when he had onset of burning sensation on the bottoms of the feet associated with numbness in the tips of the toes. He also had numbness/hot/burning sensation of the hands extending to the elbows b/l along the ulnar distribution. Hands felt like they were shriveled. Over the same time period had tenderness right posterior/lower ribs. Other symptoms included frequent nocturia (some nights several times an hour). He had PMH significant for DVT following foot surgery. TIA?--visual field cut right eye. Underwent further work up including bone marrow biopsy 07/24/2014: BONE MARROW, ASPIRATE, CORE BIOPSY, CLOT SECTION, PERIPHERAL BLOOD (A-C): - POLYTYPIC PLASMA CELL HYPERPLASIA (5-9% PLASMA CELLS) (SEE COMMENT). - NORMOCELLULAR MARROW FOR AGE WITH TRILINEAGE HEMATOPOIESIS. - ADEQUATE MEGAKARYOCYTES. - STAINABLE IRON PRESENT WITHOUT RING SIDEROBLASTS. Comment: Plasma cells are small and well-differentiated. No lymphoid infiltrates were present. Immunostains for CD138, kappa and lambda cytoplasmic immunoglobulin were performed on the core biopsy to better quantify plasma cells and evaluate for clonality and showed that CD138+ plasma cells are increased and estimated at 5-9% of overall cellularity. The plasma cells appear polytypic, with a slight kappa predominance that is not diagnostic for clonality, by cytoplasmic kappa and lambda light chain staining. A Congo red stain of the core biopsy was negative for amyloid. Was seen by neurology [facility]. EMG 06/2014: Interpretation: Electrodiagnostic examination of the right upper and lower extremities discloses: 1) right median neuropathy at or distal to the wrist, mild to moderate in degree electrically, consistent with carpal tunnel syndrome. ? 2) no definite evidence of a generalized large fiber sensory-motor polyneuropathy. ?In addition, there is no evidence of a right lumbosacral motor radiculopathy. 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 Presents to reestablish care. Interim history: He scheduled the MRI of both lower extremities had an open MRI facility in [place]. He was told he would have to wait for nearly 6 hours to have the study done and therefore declined to undergo the MRI. 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 EMG testing in August 2014 revealed right median neuropathy at her distal to the wrist, mild to moderate in degree electrically, consistent with carpal tunnel syndrome and no definite evidence of a generalized large fiber sensory motor polyneuropathy. In addition there is no evidence of a right lumbosacral motor radiculopathy. He has stable symptoms of neuropathy. He has a constant feeling of pins and needles on the soles of the feet when his lower extremity/ankles are edematous but has bland numbness when he has no swelling. He has a sensation of tingling in the hands. Previously had carpal tunnel syndrome with no relief of symptoms. No progression. It was diagnosed with coronary artery disease in March 2018 and underwent placement of 5 stents. He is on aspirin and Plavix. No unusual bleeding or unexplained bruising. 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 He still having occasional episodes of angina which are relieved with nitroglycerin. PMH, medications and allergies as below personally reviewed by me today. Any changes documented in appropriate section. ROS: Constitutional: Denies episodes of fever and night sweats. Not significantly fatigued. Normal appetite. Neuro: Denies TENA, vertigo, dizziness and imbalance. HEENT: No recent change in voice, vision or hearing. Resp: Denies cough, wheeze and hemoptysis. CVS: Has mild chronic edema both ankles. GI: Denies dysgeusia. Denies symptoms of stomatitis. Denies dysphagia and odynophagia. Denies reflux, n/v, change in bowel habits and abdominal pain. : Denies dysuria or gross hematuria. Endo: Denies hot flashes. Denies polyuria and polydipsia. Denies heat and cold intolerance. Musculoskeletal: Aches all over. Derm: Denies rash. Denies jaundice and diffuse pruritis. Heme: Denies unusual bleeding and unexplained bruising. Psych: Normal mood. PHYSICAL EXAM: Vitals: Blood pressure 138/96, pulse 67, temperature 37 ?C (98.6 ?F), temperature source Oral, weight 113.2 kg (249 lb 8 oz). Well-appearing and in no acute distress. EYES: Sclerae are anicteric bilaterally. ENT: Oral mucosa is unremarkable. NECK: Supple. LYMPHATIC: There is no palpable cervical, supraclavicular or axillary or inguinal adenopathy. RESPIRATORY: Inspiratory breath sounds are of normal intensity in all hanson. CARDIOVASCULAR: Rhythm is regular. Normal intensity S1/S2. ABDOMEN: The abdomen is nondistended. There is no organomegaly. No tenderness. Extremities: Free of edema. SKIN: No jaundice or rash. No petechiae. 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 No focal motor weakness. ASSESSMENT/PLAN: 1) MUGS. IgG lambda 0.34 g/dL at initial diagnosis. 5-9% polytypic plasma cells. -He has to sclerotic bone lesions one in each tibia. Skeletal survey unremarkable otherwise. -Previous EMG demonstrated no evidence of large fiber sensory-motor polyneuropathy. He was diagnosed with potential small fiber neuropathy but was not able to follow-up and have skin biopsy done to prove this. -No evidence of amyloidosis on original bone marrow biopsy. -Symptoms of sensory neuropathy have been stable over the last 4 years. -We again addressed his status today. Ideally he needs repeat bone marrow biopsy and then potential directed biopsy of the sclerotic bone lesions. Serum VEGF will be measured. -Ultimately may need referral to [facility] for further diagnostic consideration workup. Plan: -Bone marrow biopsy. -I will check with his park services specialist about holding aspirin for a week prior to the biopsy. Alex Harrell DO Referring Provider: ALEX HARRELL [[id number]] Allergies As of Date: 07/24/2018 Noted Allergy Reaction FLEXERIL (CYCLOBENZAPRINE HCL) 12/20/2012 8 - GI Upset TRAMADOL 12/16/2014 8 - GI Upset VICODIN (HYDROCODONE-ACETAMINOPHE*12/13/2009 8 - GI Upset Date Reviewed: 07/24/2018 Reviewed by: Nasima Schwab - Fully Assessed Reason for Visit: Established Patient [175] Primary Visit Diagnosis:MGUS (monoclonal gammopathy of unknown significance) [D47.2] [facility] [SQVEGF] Order #: [id number] FUTURE Follow-up and Disposition History Recorded Prescriptions as of 07/24/2018 Sig: BUSPIRONE 10 MG TABLET Take 1 tablet by mouth twice * ZOLPIDEM 10 MG TABLET Take 1 tablet by mouth daily * ASPIRIN 81 MG TABLET,DELAYED * Take 81 mg by mouth once kristen* ISOSORBIDE MONONITRATE ER 60 * Take 60 mg by mouth once kristen* RANOLAZINE ER 500 MG TABLET,E* Take 500 mg by mouth twice da* FLUTICASONE 44 MCG/ACTUATION * Inhale 1 Puff as instructed t* CPAP Initiate Auto PAP @ 5/20 cm o* PRAVASTATIN 20 MG TABLET Take 2 tablets by mouth daily* CARVEDILOL 25 MG TABLET TAKE 2 TABLETS BY MOUTH TWICE* LOSARTAN 100 MG-HYDROCHLOROTH* TAKE 1 TABLET BY MOUTH ONCE D* CLOPIDOGREL 75 MG TABLET Take 75 mg by mouth once kristen* NITROGLYCERIN 0.4 MG SUBLINGU* Dissolve 1 tablet under the t* TIZANIDINE 4 MG TABLET Take 1 tablet by mouth every * OMEPRAZOLE 40 MG CAPSULE,BRYNN* Take 1 capsule by mouth once * DULOXETINE 60 MG CAPSULE,BRYNN* TAKE 1 CAPSULE BY MOUTH ONCE * VENTOLIN HFA 90 MCG/ACTUATION* INHALE 2 PUFFS INSTRUCTED * NICOTINE 10 MG INHALATION CAR* Inhale 1 Puff as instructed a* Medication notes this encounter FLUTICASONE 44 MCG/ACTUATION HFA AEROSOL INHALER >> Nasima Schwab MA 07/24/2018 11:33 AM >> NASIMA SCHWAB MA SunJul 24, 2018 11:33 AM as necessary NICOTINE 10 MG INHALATION CARTRIDGE >> Nasima Schwab MA 07/24/2018 11:33 AM >> NASIMA SCHWAB MA SunJul 24, 2018 11:33 AM No longer using. Problem List As Of Date 07/24/2018 Noted Resolved Dysuria [R30.0] INVALID FOR*04/11/2018 Prostatitis, unspecified [N41.9] INVALID FOR*12/11/2016 TOBACCO USE DISORDER [F17.200] ESOPHAGEAL REFLUX [K21.9] Chronic depression [F32.9] JOINT PAIN-FOREARM [M25.539] INVALID FOR* GANGLION UNSPECIFIED [M67.40] INVALID FOR* HEMORRHOIDS EXTERNAL THROMBOSED [K64.5] INVALID FOR* Postoperative pain, acute, groin, right [R10.31* More... Unspecified Essential Hypertension [I10] Abdominal Pain, Epigastric [R10.13] Nausea AND Vomiting [R11.2] Sprain and strain of unspecified site of foot [*INVALID FOR* Pain in limb [M79.609] INVALID FOR* Enthesopathy of ankle and tarsus, unspecified [*INVALID FOR* 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 Hypertension goal BP (blood pressure) < 140/90 * 04/11/2018 Hyperlipidemia [E78.5] Inflamed skin tag [L91.8] INVALID FOR*12/11/2016 CECILY (obstructive sleep apnea) [G47.33] INVALID FOR* More... Left-sided low back pain with left-sided sciati*INVALID FOR* Left buttock pain [M79.18] INVALID FOR* Ischial bursitis of left side [M70.72] INVALID FOR* Gallbladder polyp [K82.4] INVALID FOR* Internal hemorrhoids [K64.8] INVALID FOR* Diverticulosis of large intestine without hemor*INVALID FOR* Hyperplastic colonic polyp [K63.5] INVALID FOR* Difficult intubation [T88.4XXA] INVALID FOR* Difficult airway [T88.4XXA] INVALID FOR* More... Primary osteoarthritis of both hips [M16.0] INVALID FOR* Piriformis syndrome, left [G57.02] INVALID FOR* Trochanteric bursitis of both hips [M70.61, M70*INVALID FOR* Chest pain [R07.9] INVALID FOR*02/22/2018 Priority: A More... SOB (shortness of breath) [R06.02] INVALID FOR*02/22/2018 Priority: B More... Obesity, Class II, BMI 35-39.9 [E66.9] INVALID FOR* S/P primary angioplasty with coronary stent [Z9*INVALID FOR* Coronary artery disease of [place] artery of mally*INVALID FOR* More... MGUS (monoclonal gammopathy of unknown signific*INVALID FOR* Lumbar spinal stenosis [M48.061] INVALID FOR* More... Gammopathy, monoclonal [D47.2] INVALID FOR* More... Encounter Status:Closed by ALEX HARRELL DO on 07/25/18 12 LEAD ELECTROCARDIOGRAM Observed: 07/15/2018 Status: F Source: [place] 3:16 PM [facility] REPOSITORY [facility] Cardiovascular Services [address] [place] [address] 12 Lead EKG 07/12/189 MR#: [id number] Acct: [id number] Name: TWIN NEWMAN Rep #: [id number] : 1965 53 From: Geovani Ashford MD Attending Dr: Status: DEP ER Ordering Dr: Erik Matt MD Date: 07/12/18 Location: ED Sex: M C Admitted: Test Reason : CP Blood Pressure : / mmHG Vent. Rate : 079 BPM Atrial Rate : 079 BPM P-R Int : 182 ms QRS Dur : 090 ms QT Int : 386 ms P-R-T Axes : 058 060 034 degrees QTc Int : 442 ms Normal sinus rhythm Normal ECG Confirmed by GEOVANI ASHFORD MD ([id number]), deputy editor in chief YORDY BOWDEN ([id number]) on 07/15/2018 3:15:45 PM Referred By: KAILEE Confirmed By:GEOVANI ASHFORD MD 07/15/18 1515 Date Geovani Ashford MD CC: Lucia Pandya; Erik Matt MD Signed DISCHARGE INSTRUCTION Observed: 07/12/2018 Status: F Source: [place] 10:41 PM [facility] REPOSITORY [facility] Medical Records Department [address] [place] [address] Discharge Instruction 07/12/18 1701 MR#: [id number] Acct: [id number] Name: TWIN NEWMAN Rep #: [id number] : 1965 53 From: Erik Matt MD PCP: Lucia Pandya Status: DEP ER ED Disposition - Plan for ED Patient: Disposition: Home or Assisted Living Chief Complaint: Chest Pain Instructions: ED Chest Pain Atypical Unkn Cause Referrals: Misha Bacon MD [STAFF PHYSICIAN] - Additional Instructions: Call follow-up with Dr. Bacon this coming week. Continue your current medications. Return to ER feeling worse. Absolutely positively try to stop smoking !!! What to do if you have Problems For any increased pain, shortness of breath, bleeding, nausea or vomiting, chest pain, or any unexpected problems, contact your Primary Care Provider. Call [facility] ([phone]) or report to the closest Emergency Room. Call 911 if necessary. 07/12/18 2241 <Electronically signed by Erik Matt MD> Date Erik Matt MD Cosigner Signature (If Indicated): Date CC: Lucia Pandya EMERGENCY DEPARTMENT Observed: 07/12/2018 Status: F Source: [place] SUMMARY 10:41 PM [facility] REPOSITORY [facility] Medical Records Department [address] [place] [address] Emergency Department Summary 07/12/18 1545 MR#: [id number] Acct: [id number] Name: TWIN NEWMAN Rep #: [id number] : 1965 53 From: Erik Matt MD PCP: Lucia Pandya Status: DEP ER - ER Visit Summary Date of Service: 07/12/18 Chief Complaint: Chest pain History of Present Illness: The patient is a 53 M of CAD, MT with 5 iliac stents. Also hypertension high cholesterol. Last cardiac catheterization with stents was in March. Since that time he is done well. States he had an MRI yesterday. Today after he got up he noticed midsternal chest pain that radiated to the right. This is similar to his prior cardiac chest pain except that always radiating to the left. Mild diaphoresis. He states he is chronically short of breath because he is a smoker. He still smokes. He is on both Plavix and aspirin. Exertion does not change his pain. He states the pain started this morning after he got up. Around 930. He describes it as an aching. Physical Examination: Well-appearing middle-age male. Vital signs are febrile. No distress. H EENT exam unremarkable. Neck nontender. Lungs clear to auscultation bilaterally. Heart regular rhythm no murmur. Abdomen is soft and nontender. Chest wall no reproducible tenderness. He is moving all 4 extremities. 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 Dorsi plantar flexion. Trace lower extremity edema. Neurologically is awake and alert with no focal motor deficits. Test Results: Chest x-ray portable one view shows no acute abnormality read both by myself and radiologist. EKG is a sinus rhythm rate of 79 with no acute change from the most recent EKG from March of this year. CBC normal. Chemistries unremarkable with a creatinine 1.31. Normal gap. Troponin normal. Emergency Department Course and Treatment: Patient will undergo a cardiac workup. He has had no recent travel, surgery or mobilization. Repeat exam at 1656 patient is doing well. Is currently symptom-free. I spoke at length to both he and his . I explained and I could not specifically diagnosis chest pain. This could be cardiac. It could be his angina. Or may be totally unrelated noncardiac chest pain. I explained to him that I thought would be in his best interest to be admitted. He is adamantly against that. I offered him a repeat troponin several hours after the first he deferred that. And he wants to be discharged home. I also spoke to both he and his at length about smoking sensation. Treatment Plan: Signing out against medical advice. Will follow up with his doctor. Continue his current meds. Return if worse. Disposition: Signing out AMA. Impression: Acute chest pain of uncertain etiology . History of CAD, MT with 5 cardiac stents Signing out AMA This note was generated with Beam Expressation software. It may contain incorrect words, spelling, and punctuation that were not noted in review of the chart prior to signing ED Disposition - Plan for ED Patient: Chief Complaint: Chest Pain Referrals: Lucia Pandya PA [Primary Care Provider] - What to do if you have Problems For any increased pain, shortness of breath, bleeding, nausea or vomiting, chest pain, or any unexpected problems, contact your Primary Care Provider. Call [facility] ([phone]) or report to the closest Emergency Room. Call 911 if necessary. 07/12/18 2241 <Electronically signed by Erik Matt MD> Date Erik Matt MD Cosigner Signature (If Indicated): Date CC: Lucia Pandya CBC W/DIFF, AUTOMATED Collected: 07/12/2018 Status: F Source: [place] 3:25 PM [facility] REPOSITORY TYPE CODE TESTS RESULT OUT OF RANGE REFERENCE UNITS LAB L100.1000 4.4-11.0 K/mm3 Normal WBC 8.2 LAB L100.1200 4.6-6.2 M/mm3 Low RBC 4.28 LAB L100.1300 13.0-16.5 g/dl Normal HGB 14.2 LAB L100.1400 40-54 % Normal HCT 41.2 LAB L100.1500 80-94 fL High MCV 96.3 LAB L100.1600 27.0-32.0 pg High MCH 33.2 LAB L100.1700 32-36 g/gl Normal MCHC 34.5 LAB L100.1810 11.6-14.6 % High RDW CV 14.9 LAB L100.1820 35.1-43.9 fl High RDW SD 49.9 LAB L100.1900 150-450 K/mm3 Normal PLT 224 LAB L100.2000 6.2-12.0 fl Normal MPV 8.6 LAB L100.2100 47-70 % Normal NEUT% 55.7 LAB L100.2200 19-41 % Normal LY% 29.3 LAB L100.2300 0-10 % High MONO% 11.2 LAB L100.2400 0-5 % Normal EO% 3.2 LAB L100.2500 0-1 % Normal BASO% 0.5 LAB L100.2550 0.0-0.9 % Normal IM GRAN % 0.100 Result Comment: IG% - Immature Granulocytes (promyelocytes, myelocytes and metamyelocytes) > 1% indicates that a LEFT SHIFT is Present. LAB L100.2620 2.0-7.7 X10 3/uL Normal Absolute Neut 4.6 LAB L100.2720 0.83-4.51 X10 3/ul Normal Absolute Lymph 2.39 Performed By: #### L100.0100 #### [facility] [address] [place], [address] BASIC METABOLIC Collected: 07/12/2018 Status: F Source: [place] PROFILE ([facility]) 3:25 PM [facility] REPOSITORY TYPE CODE TESTS RESULT OUT OF RANGE REFERENCE UNITS LAB L501.0100 74-106 mg/dL Normal GLU 105 Result Comment: Fasting Glucose result from 100 to 125 mg/dL suggests IMPAIRED HOMEOSTASIS per A.D.A. criteria. Please note revised GLUCOSE reference range effective 2017. LAB L501.1000 7-18 mg/dL Normal BUN 18 LAB L501.1100 0.70-1.30 mg/dL High CREAT,SERUM 1.31 Result Comment: The validity of the calculated GFR AND GFRAA in patients over 70 years has not been determined. Clinical correlation is essential. LAB L501.1110 >60 mL/min Normal EST GFR 61 Result Comment: Non- GFR Calc LAB L501.1115 >60 mL/min Normal EST GFR - AA 74 Result Comment: GFR Calc LAB L501.1255 ml/min Normal Estimated CRCL 60.97 LAB L501.1300 10-20 RATIO Normal BUN/CRE 13.7 LAB L501.2200 8.5-10 mg/dL Normal .1 CA 8.9 LAB L501.5300 136-14 mmol/L Normal 5 NA 140 LAB L501.5600 3.5-5. mmol/L Normal 1 K 3.5 LAB L501.5900 98-107 mmol/L Normal CL 102 LAB L501.6100 21.0-3 mmol/L Normal 2.0 CO2 31.0 LAB L501.6200 5-15 Normal GAP 7 Performed By: #### L500.2500, L501.4010 #### [facility] [address] [place], [address] TROPONIN-I Collected: 07/12/2018 Status: F Source: [place] 3:25 PM [facility] REPOSITORY TYPE CODE TESTS RESULT OUT OF RANGE REFERENCE UNITS LAB L501.4010 <0.045 ng/mL Normal < 0.015 TROPONIN-I Result Comment: TROPONIN-I EXPECTED VALUES <0.045 Negative 0.045 - 0.590 Consistent with Cardiac Damage > OR = 0.600 Critical Value Not every elevated troponin is indicative of MT. These values should be used with clinical judgement in examining the patient's clinical picture for diagnosis. To establish a diagnosis of MT versus myocardial injury, there must be a demonstrated rise and/or fall in the troponin values, in addition to ischemic symptoms, EKG changes, new regional wall motion abnormality, and/or angiographical evidence. PLEASE NOTE: REFERENCE RANGES EDITED 18 Performed By: #### L500.2500, L501.4010 #### [facility] [address] [facility] [place], [address] CHEST 1 VIEW Observed: 07/12/2018 Status: F Source: [place] (PORTABLE) 3:24 PM [facility] REPOSITORY [facility] Imaging Services [address] [place], [place] [address] [address] Chest 1 View (Portable) MR#: [id number] Acct: [id number] Name: TWIN NEWMAN Rep #: [id number] : 1965 M 53 From: Kelsea Vazquez MD PCP: Lucia Pandya Status: REG ER Study: Chest 1 View (Portable) Date of Exam: 07/12/18 Exam# [id number] Ordering Dr: Erik Matt MD STUDY: X-RAY CHEST REASON FOR EXAM: Male, 53 years old. Chest pain TECHNIQUE: Single PA view of the chest. COMPARISON: April 09, 2018 FINDINGS: There is no new focal consolidation. Normal size heart. Normal mediastinum and susana. Normal visualized pulmonary arteries. Normal visualized aortic arch and descending thoracic aorta. Normal visualized thoracic spine. Normal visualized ribs, clavicles, and shoulders. There is no demonstrated abnormality of the visualized soft tissue structures of the upper abdomen. RAD/Chest 1 View (Portable) IMPRESSION: No acute cardiopulmonary process. Electronically Signed: Kelsea Vazquez MD at 16:10 EDT Tel , Service support , CC: Lucia Pandya; Erik Matt MD Assembly Adjuster: Signed MR-MRI LUMBAR SPINE Observed: 07/11/2018 Status: F Source: [place] IMPORT 12:[address] [facility] REPOSITORY Images were obtained outside of [facility] [id number] MR-MRI LUMBAR SPINE - Observed: 07/11/2018 Status: F Source: [place] OVERREAD 12:[address] [facility] REPOSITORY * * *Final Report* * * DATE OF EXAM: Jul 11 2018 12:00AM OUT 0001 - MR OUTSIDE CD DICOM IMPORT -NBNR / PROCEDURE REASON: Previous report is inadequate * * * * Physician Interpretation * * * * EXAMINATION: OUTSIDE IMAGE INTERPRETATION Indication for the Request / Reason for Overread: Previous report is inadequate. Specific Issue(s) Discussed: this is a first report from outside MRI scanner due to patients coronary stents. The disc went to radiology. I am not sure of date or time scan was done. Patient brought it to the office and it was laid on my desk Images Reviewed: MR without contrast of the lumbar spine performed on 07/11/2018 12:00 AM. Image Quality: Technically adequate images Overread Date: 08/02/2018 4:07 PM MQ: Over_2 Comparison: MR lumbar spine 09/23/2015 RESULT: Counting reference: Lumbosacral junction. For the purposes of this report, L4-5 is considered the level of the iliac crest and there are 5 lumbar-type vertebrae. Anatomic Variants: None. Alignment: Straightening of the cervical lordosis. Moderate intervertebral disc space narrowing at L4-5 and L5-S1 and mild narrowing at L3-4. Bone marrow signal/fracture: No evidence of pathologic marrow infiltration. No evidence of prior fracture. Conus: The conus terminates at T12-L1 and appears within normal limits of morphology and signal. Lumbar soft tissues: The lumbar paraspinal soft tissues are within normal limits. T12-L1: Canal and foramina are patent. L1-L2: Canal and foramina are patent. L2-L3: Canal and foramina are patent. L3-L4: Previously seen small right paracentral/foraminal disc extrusion with minimal cranial extension is no longer clearly identified since remote comparison of 09/23/2015. Diffuse disc bulging and mild facet hypertrophy without significant canal stenosis. Mild bilateral foraminal stenosis, likely slightly progressed on the left. L4-L5: Disc extrusion/free fragment previously seen severely narrowing the left subarticular zone is no longer discretely identified with mildly T2 hyperintense focus along the posterior aspect of the L4 vertebral body to the right of midline measuring 12 mm in maximum dimension (series 3, image 13) which may reflect residual free fragment, otherwise not included on the axial sequences due to slice thickness. Diffuse disc bulging and mild facet arthropathy resulting in mild bilateral foraminal stenosis. Canal is patent. L5-S1: Mild canal stenosis due to diffuse disc bulging and mild facet arthropathy. Canal is patent. No significant change. Sacrum and iliac wings: The visualized sacrum and iliac wings are within normal limits. The presacral soft tissues appear normal. IMPRESSION: Since 09/23/2015: Apparent resolution of small right paracentral/foraminal disc protrusion at L3-4. Significant decrease in disc extrusion previously severely narrowing the left subarticular zone at L4-5 with suggestion of small residual free fragment, as detailed. Mild lumbar spondylosis without high-grade canal or foraminal stenosis. Thoracic/Lumbar Anatomic Variant: None. L4-5 is considered the level of the iliac crest and assume there are 5 lumbar-type vertebrae. Assembly Adjuster: DIDI Transcribe Date/Time: Aug 02 2018 4:07P Dictated by : CHEYENNE TEIXEIRA MD This examination was interpreted and the report reviewed and electronically signed by: CHEYENNE TEIXEIRA MD on Aug 02 2018 5:43PM EST [id number] SHARLA ISTAT BMP Collected: 07/08/2018 Status: F Source: [place] 12:[address] [facility] REPOSITORY TYPE CODE TESTS RESULT OUT OF REFERENCE UNITS RANGE LAB NAWB 135-146 mmol/L Sodium, Whole 140 Bld LAB K1WB 3.5-5.0 mmol/L Potassium,Who 4.0 le Bld LAB CLWB 98-110 mmol/L Chloride, 101 Whole Bld LAB ICAWB 1.08-1.30 mmol/L Ionized 1.15 Calcium, WB Result Comment: Please note: This value represents ionized calcium not total calcium. LAB CO2WB 23-32 mmol/L TCO2, Whole 29 Blood LAB GLUWB 65-100 mg/dL High Glucose, 103 Whole Bld LAB BUNWB 10-25 mg/dL BUN, Whole 19 Blood LAB BCRET 0.70-1.40 mg/dL Creatinine,Wh 0.90 ole Bld LAB AGAPWB 0-15 mmol/L Anion Gap, 10 Whole Bld LAB GFRAA eGFR- >60 Amer. LAB GFRNAA . eGFR-All >60 Other Races Result Comment: eGFR (Estimated GFR) Units of measure: mL/min/1.73 meters squared eGFR is derived from the reexpressed MDRD Study equation using the following parameters: serum creatinine, age, gender and race. The creatinine assay has been calibrated to be traceable to IDMS. An eGFR <60 mL/min/1.73m2 for >3 months is consistent with chronic kidney disease. Refer to KDOQI guidelines for clinical interpretation. In patients with unstable renal function, e.g. those with acute kidney injury, the eGFR may not accurately reflect actual GFR. PROGRESS Observed: 07/01/2018 Status: COMPLETED Source: [place] 5:[address] [facility] REPOSITORY HNO ID: [id number] Author: Lucia Pandya Service: (none) Author Type: Physician Metal Flow Coordinator Type: Progress Notes Filed: 07/01/2018 5:53 PM Note Text: Attempted to call patient. Home cell # has been changed or disconnected. Will call work number tomorrow. Chepe Pandya, PA-C SHARLA CBC AND DIFF Collected: 06/28/2018 Status: F Source: [place] 1:[address] [facility] REPOSITORY TYPE CODE TESTS RESULT OUT OF REFERENCE UNITS RANGE LAB WWBC 3.70-11.00 k/uL [place] WBC 7.23 LAB WRBC 4.20-6.00 m/uL [place] RBC 4.70 LAB WHGB 13.0-17.0 g/dL [place] Hemoglobin 15.1 LAB WHCT 39.0-51.0 % [place] Hematocrit 45.5 LAB WMCV 80.0-100.0 fL [place] MCV 96.8 LAB WMCH 26.0-34.0 pg [place] MCH 32.1 LAB WMCHC 30.5-36.0 g/dL [place] MCHC 33.2 LAB WRDW 11.5-15.0 % [place] RDW 14.9 LAB WPLT 150-400 k/uL [place] Platelet Cnt 195 LAB WMPV 9.0-12.7 fL Low [place] MPV 8.7 Result Comment: Test performed at: [facility], [address] [place] [address] Rd[address] [place] [address]. LAB WNEUT % [place] Neut% 49.0 LAB WLYMP % [place] Lymp% 36.2 LAB WMONOC % [facility] Brule% 10.8 LAB WEOS % [place] Eos% 3.6 LAB WBASO % [place] Baso% 0.4 LAB WANEUT 1.45-7.50 k/uL [place] Abs Neut 3.54 LAB WALYMP 1.00-4.00 k/uL [place] Abs Lymp 2.62 LAB WAMONO <0.87 k/uL [place] Abs Brule 0.78 LAB WAEOS <0.46 k/uL [place] Abs Eos 0.26 LAB WABASO <0.11 k/uL [place] Abs Baso 0.03 COMP METABOLIC PANEL Collected: 06/28/2018 Status: F Source: [place] 1:[address] [facility] REPOSITORY TYPE CODE TESTS RESULT OUT OF REFERENCE UNITS RANGE LAB TP 6.3-8.0 g/dL Protein, Total 7.3 LAB ALB 3.9-4.9 g/dL Albumin 4.3 LAB CA 8.5-10.2 mg/dL Calcium, Total 9.9 LAB TBIL 0.2-1.3 mg/dL Bilirubin, Total 0.2 LAB ALKP 38-113 U/L Alkaline Phosphatase 65 LAB AST 14-40 U/L AST 17 LAB GLU 74-99 mg/dL Glucose 94 Result Comment: The [place] [employer] (ADA) provides guidance for cutoff values for fasting glucose and random glucose. The ADA defines fasting as no caloric intake for at least 8 hours. Fas ting plasma glucose results between 100 to 125 mg/dL indicate increased risk for diabetes (prediabetes). Fasting plasma glucose results greater than or equal to 126 mg/dL meet the criteria for diagnosis of diabetes. In the absence of unequivocal hyperglycemia, results should be confirmed by repeat testing. In a patient with classic symptoms of hyperglycemia or hyperglycemic crisis, random plasma glucose results greater than or equal to 200 mg/dL meet the criteria for diagnosis of diabetes. Reference: Standards of Medical Care in Diabetes 2016, [place] [employer]. Diabetes Care. 2016.39(Suppl 1). LAB BUN 9-24 mg/dL BUN 19 LAB CRET 0.73-1.22 mg/dL Creatinine 1.03 LAB NA 136-144 mmol/L Sodium 139 LAB K 3.7-5.1 mmol/L Potassium 4.0 LAB CL 97-105 mmol/L Chloride 99 LAB CO2 22-30 mmol/L CO2 24 LAB AGAP 9-18 mmol/L Anion Gap 16 LAB ALT 10-54 U/L ALT 10 LAB GFRAA eGFR- Amer. >60 LAB GFRNAA . eGFR-All Other Races >60 Result Comment: eGFR (Estimated GFR) Units of measure: mL/min/1.73 meters squared eGFR is derived from the reexpressed MDRD Study equation using the following parameters: serum creatinine, age, gender and race. The creatinine assay has been calibrated to be traceable to IDMS. An eGFR <60 mL/min/1.73m2 for >3 months is consistent with chronic kidney disease. Refer to KDOQI guidelines for clinical interpretation. In patients with unstable renal function, e.g. those with acute kidney injury, the eGFR may not accurately reflect actual GFR. Performed By: #### CMP, LD6, B12, KLFRS, SEPG, MPASRM #### [facility] [address] [id number] LD Collected: 06/28/2018 Status: F Source: [place] [address]:14 PM [facility] REPOSITORY TYPE CODE TESTS RESULT OUT OF RANGE REFERENCE UNITS LAB LD 135-225 U/L LD 160 Performed By: #### CMP, LD6, B12, KLFRS, SEPG, MPASRM #### [facility] [employer] [address] [place], [place] [address] VITAMIN B12 Collected: 06/28/2018 Status: F Source: [place] 1:[address] [facility] REPOSITORY TYPE CODE TESTS RESULT OUT OF REFERENCE UNITS RANGE LAB B12 232-1245 pg/mL Vitamin B12 359 Performed By: #### CMP, LD6, B12, KLFRS, SEPG, MPASRM #### [facility] [employer] [address] [place], [place] [id number] KAPPA/NIELSON,FREE,SER Collected: Status: F Source: [place] 06/28/2018 1:[address] [facility] REPOSITORY TYPE CODE TESTS RESULT OUT OF REFERENCE UNITS RANGE LAB FKAPS 3.30-19.40 mg/L Fabens, 12.9 Free, Serum Result Comment: Rarely, increased serum free light chains values may not be detected due to antigen excess phenomenon. Results should always be correlated with other laboratory results and clinical findings. LAB FLAMS 5.7-26.3 mg/L Lambda, Free, 11.6 Serum Result Comment: Rarely, increased serum free light chains values may not be detected due to antigen excess phenomenon. Results should always be correlated with other laboratory results and clinical findings. LAB KLRAT 0.26-1.65 K/L Ratio, 1.11 Serum Performed By: #### CMP, LD6, B12, KLFRS, SEPG, MPASRM #### [facility] [employer] [address] [place], [place] [id number] PROTEIN ELECTROPHOR. Collected: 06/28/2018 Status: F Source: [place] 1:[address] [facility] REPOSITORY TYPE CODE TESTS RESULT OUT OF REFERENCE UNITS RANGE LAB TPSPE 6.0-8.4 g/dL Total Protein, SPE 7.1 LAB ALBE 3.37-4.23 gm/dL Albumin 3.61 LAB A1GL 0.18-0.31 gm/dL Alpha 1 Globulin 0.25 LAB A2GL 0.52-0.97 gm/dL Alpha 2 Globulin 0.82 LAB BEGL 0.84-1.36 gm/dL Beta Globulin 1.26 LAB GAGL 0.70-1.44 gm/dL Gamma Globulin 1.16 LAB SPEINT Interpretation SEE COMMENT Result Comment: An M protein is identified on protein electrophoresis. See separate immunofixation report for characterization of the M protein. LAB LOC M Protein Gamma Location fraction LAB GPERDL 0.00 gm/dL M Woodrow 0.41 High Concentratn LAB SPESTF SPE Staff Review Reviewed by Dionte Hay M.D. ([id number]) Performed By: #### CMP, LD6, B12, KLFRS, SEPG, MPASRM #### [facility] [employer] [address] [place], [place] [address] MONOCLONL PROTEIN,BL Collected: 06/28/2018 Status: F Source: [place] 1:[address] [facility] REPOSITORY TYPE CODE TESTS RESULT OUT OF RANGE REFERENCE UNITS LAB MPAIGG 717-1411 mg/dL MPA Serum IgG 1110 LAB MPAIGA 78-391 mg/dL MPA Serum IgA 178 LAB MPAIGM 53-334 mg/dL MPA Serum IgM 60 LAB MPAK 534-1267 mg/dL Serum Fabens 762 LAB MPAL 253-653 mg/dL High Serum Lambda 670 LAB MPAKL 1-3 MPA Bebeto/Hernandez Ratio 1.14 LAB MPAR No M protein is MPA Result Abnormal identified. M protein Alert is present. LAB INTP MPA Interpretation SEE COMMENT Result Comment: Atypical restricted bands are present in the IgG and lambda regions. Consistent with IgG lambda monoclonal gammopathy. LAB MPASTF Staff Reviewed by Review Dionte Hay M.D. ([id number]) Performed By: #### CMP, LD6, B12, KLFRS, SEPG, MPASRM #### [facility] [employer] [address] [place], [place] [address] PROGRESS Observed: 06/28/2018 Status: COMPLETED Source: [place] 12:[address] [facility] REPOSITORY HNO ID: [id number] Author: Ela (Rt) Mann Bowden Service: (none) Author Type: Wwe Wrestler Type: Progress Notes Filed: 06/28/2018 12:40 PM Note Text: Radiology Service Progress Note PATIENT NAME: Twin Newman DATE OF SERVICE: June 28, 2018 TIME: 12:40 PM PATIENT IDENTITY VERIFICATION COMPLETED USING TWO (2) METHODS: Patient confirmed name verbally and Date of . PATIENT GENDER DATA: Male PATIENT RELEVANT IMPLANT DATA REVIEWED: Not Applicable RADIOLOGY DEPARTMENT: General X-ray: Exam(s) Completed: Bone Survey PERIPHERAL IV DATA: Not applicable SIGNED BY: RT Johanna June 28, 2018 12:40 PM XR BONE SURVEY Observed: 06/28/2018 Status: F Source: [place] ROUT[place] 12:39 PM [facility] REPOSITORY * * *Final Report* * * DATE OF EXAM: Jun 28 2018 12:39PM WRX [id number] - XR BONE SURVEY ROUTINE / PROCEDURE REASON: MGUS (monoclonal gammopathy of unknown significance) * * * * Physician Interpretation * * * * XR BONE SURVEY ROUTINE HISTORY: MGUS (monoclonal gammopathy of unknown significance) . VIEWS: 20 images. Lateral skull, lateral cervical spine, AP thoracic and lumbar spine, AP and oblique ribs bilaterally, AP pelvis, AP humeri and forearms, AP femurs and lower legs bilaterally. COMPARISON: 01/12/2016 left knee radiographs, 01/07/2016 bone survey. FINDINGS: Skull: No suspicious lytic or sclerotic lesion. Edentulous maxilla and mandible. Spine: No compression deformity, lytic lesion or paraspinal mass. Cervical kyphosis, distal cervical and lumbar degenerative spondylosis, prior L3-5 posterior decompression. Ribs: No focal rib lesion. Pelvis: No focal lesion. Mild arthrosis both hips. Extremities: Stable 3 cm sclerotic lesion medial proximal tibial metaphysis and similar less dense sclerotic lesion at the distal right tibial metadiaphysis. IMPRESSION: Sclerotic lesions at medial proximal tibial metaphysis and distal right tibial metadiaphysis, may be secondary to osteosclerotic myeloma. No new lesions identified. Assembly Adjuster: PSCB Transcribe Date/Time: Jun 28 2018 3:31P Dictated by : Kyler WERNER MD This examination was interpreted and the report reviewed and electronically signed by: Kyler WERNER MD on Jun 28 2018 3:39PM EST [id number] PROGRESS Observed: 06/28/2018 Status: COMPLETED Source: [place] 11:38 AM [facility] REPOSITORY HNO ID: [id number] Author: Alex Harrell Service: (none) Author Type: Physician Type: Progress Notes Filed: 06/28/2018 12:31 PM Note Text: Diagnoses: 1) Monoclonal gammopathy. 2) Sensory neuropathy. HPI: The patient is a 53 yo male who was evaluated by his PCP for neuropathy and found to have a monoclonal protein. Patient had felt well until about 2 months prior to initial evaluation when he had onset of burning sensation on the bottoms of the feet associated with numbness in the tips of the toes. He also had numbness/hot/burning sensation of the hands extending to the elbows b/l along the ulnar distribution. Hands felt like they were shriveled. Over the same time period had tenderness right posterior/lower ribs. Other symptoms included frequent nocturia (some nights several times an hour). He had PMH significant for DVT following foot surgery. TIA?--visual field cut right eye. Underwent further work up including bone marrow biopsy 07/24/2014: BONE MARROW, ASPIRATE, CORE BIOPSY, CLOT SECTION, PERIPHERAL BLOOD (A-C): - POLYTYPIC PLASMA CELL HYPERPLASIA (5-9% PLASMA CELLS) (SEE COMMENT). - NORMOCELLULAR MARROW FOR AGE WITH TRILINEAGE HEMATOPOIESIS. - ADEQUATE MEGAKARYOCYTES. - STAINABLE IRON PRESENT WITHOUT RING SIDEROBLASTS. Comment: Plasma cells are small and well-differentiated. No lymphoid infiltrates were present. Immunostains for CD138, kappa and lambda cytoplasmic immunoglobulin were performed on the core biopsy to better quantify plasma cells and evaluate for clonality and showed that CD138+ plasma cells are increased and estimated at 5-9% of overall cellularity. The plasma cells appear polytypic, with a slight kappa predominance that is not diagnostic for clonality, by cytoplasmic kappa and lambda light chain staining. A Congo red stain of the core biopsy was negative for amyloid. Was seen by neurology main [place]. EMG 06/2014: Interpretation: Electrodiagnostic examination of the right upper and lower extremities discloses: 1) right median neuropathy at or distal to the wrist, mild to moderate in degree electrically, consistent with carpal tunnel syndrome. ? 2) no definite evidence of a generalized large fiber sensory-motor polyneuropathy. ?In addition, there is no evidence of a right lumbosacral motor radiculopathy. 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 Presents to reestablish care. Interim history: He has stable symptoms of neuropathy. He has a constant feeling of pins and needles on the soles of the feet when his lower extremity/ankles are edematous but has bland numbness when he has no swelling. He has a sensation of tingling in the hands. Previously had carpal tunnel syndrome with no relief of symptoms. It was diagnosed with coronary artery disease in March and underwent placement of 5 stents. He's been having chest pain the last couple of days and took some nitroglycerin tablets this morning without relief. He is not short of breath at rest. He is still smoking about half pack cigarettes a day. He does not drink alcohol. He is on aspirin and Plavix. No unusual bleeding or unexplained bruising. 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 PMH, medications and allergies as below personally reviewed by me today. Any changes documented in appropriate section. ROS: Constitutional: Denies episodes of fever and night sweats. Not significantly fatigued. Normal appetite. Neuro: Denies TENA, vertigo, dizziness and imbalance. HEENT: No recent change in voice, vision or hearing. Resp: Denies cough, wheeze and hemoptysis. CVS: Has mild chronic edema both ankles. GI: Denies dysgeusia. Denies symptoms of stomatitis. Denies dysphagia and odynophagia. Denies reflux, n/v, change in bowel habits and abdominal pain. : Denies dysuria or gross hematuria. Endo: Denies hot flashes. Denies polyuria and polydipsia. Denies heat and cold intolerance. Musculoskeletal: Aches all over. Derm: Denies rash. Denies jaundice and diffuse pruritis. Heme: Denies unusual bleeding and unexplained bruising. Psych: Normal mood. PHYSICAL EXAM: Vitals: Blood pressure 132/91, pulse 61, temperature 36.7 ?C (98 ?F), temperature source Oral, weight 113.9 kg (251 lb). Well-appearing and in no acute distress. EYES: Sclerae are anicteric bilaterally. ENT: Oral mucosa is unremarkable. NECK: Supple. LYMPHATIC: There is no palpable cervical, supraclavicular or axillary or inguinal adenopathy. RESPIRATORY: Inspiratory breath sounds are of normal intensity in all hanson. CARDIOVASCULAR: Rhythm is regular. Normal intensity S1/S2. ABDOMEN: The abdomen is nondistended. There is no organomegaly. No tenderness. Extremities: Free of edema. SKIN: No jaundice or rash. No petechiae. 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 No focal motor weakness. ASSESSMENT/PLAN: 1) MUGS. IgG lambda 0.34 g/dL at initial diagnosis. 5-9% polytypic plasma cells. -Discussed small potential risk progression to MM. Plan: -Appropriate lab work today to assess. Recheck B-12. 2) Sensory neuropathy. No evidence amyloidosis on original bone marrow biopsy. EMG suggestive of small fiber neuropathy. -Symptoms have remained stable the last few years. Plan: -Monitor. 3) CAD/Angina. He is having active chest pain. I advised him to get emergency evaluation but he declines. He said he has had this pain off and on now for about the last week and plans to go to the emergency room tomorrow. No amount of discussion or coaxing would convince him to go now. Alex Harrell DO CNOVSP Observed: 06/28/2018 Status: COMPLETED Source: [place] 11:[address] [facility] REPOSITORY Visit (SP) Office ([place]) TWIN NEWMAN ([id number]) 1965 M Date Time Provider Department 06/28/18 11:20 AM ALEX HARRELL During your visit today, we recorded the following information about you: Temperature Pulse Blood pressure Weight 98 degrees 61/minute 132/91 113.9 kg Alex Harrell DO 06/28/2018 12:31 PM Signed Diagnoses: 1) Monoclonal gammopathy. 2) Sensory neuropathy. HPI: The patient is a 53 yo male who was evaluated by his PCP for neuropathy and found to have a monoclonal protein. Patient had felt well until about 2 months prior to initial evaluation when he had onset of burning sensation on the bottoms of the feet associated with numbness in the tips of the toes. He also had numbness/hot/burning sensation of the hands extending to the elbows b/l along the ulnar distribution. Hands felt like they were shriveled. Over the same time period had tenderness right posterior/lower ribs. Other symptoms included frequent nocturia (some nights several times an hour). He had PMH significant for DVT following foot surgery. TIA?--visual field cut right eye. Underwent further work up including bone marrow biopsy 07/24/2014: BONE MARROW, ASPIRATE, CORE BIOPSY, CLOT SECTION, PERIPHERAL BLOOD (A-C): - POLYTYPIC PLASMA CELL HYPERPLASIA (5-9% PLASMA CELLS) (SEE COMMENT). - NORMOCELLULAR MARROW FOR AGE WITH TRILINEAGE HEMATOPOIESIS. - ADEQUATE MEGAKARYOCYTES. - STAINABLE IRON PRESENT WITHOUT RING SIDEROBLASTS. Comment: Plasma cells are small and well-differentiated. No lymphoid infiltrates were present. Immunostains for CD138, kappa and lambda cytoplasmic immunoglobulin were performed on the core biopsy to better quantify plasma cells and evaluate for clonality and showed that CD138+ plasma cells are increased and estimated at 5-9% of overall cellularity. The plasma cells appear polytypic, with a slight kappa predominance that is not diagnostic for clonality, by cytoplasmic kappa and lambda light chain staining. A Congo red stain of the core biopsy was negative for amyloid. Was seen by neurology [facility]. EMG 06/2014: Interpretation: Electrodiagnostic examination of the right upper and lower extremities discloses: 1) right median neuropathy at or distal to the wrist, mild to moderate in degree electrically, consistent with carpal tunnel syndrome. ? 2) no definite evidence of a generalized large fiber sensory-motor polyneuropathy. ?In addition, there is no evidence of a right lumbosacral motor radiculopathy. 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 Presents to reestablish care. Interim history: He has stable symptoms of neuropathy. He has a constant feeling of pins and needles on the soles of the feet when his lower extremity/ankles are edematous but has bland numbness when he has no swelling. He has a sensation of tingling in the hands. Previously had carpal tunnel syndrome with no relief of symptoms. It was diagnosed with coronary artery disease in March and underwent placement of 5 stents. He's been having chest pain the last couple of days and took some nitroglycerin tablets this morning without relief. He is not short of breath at rest. He is still smoking about half pack cigarettes a day. He does not drink alcohol. He is on aspirin and Plavix. No unusual bleeding or unexplained bruising. 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 PMH, medications and allergies as below personally reviewed by me today. Any changes documented in appropriate section. ROS: Constitutional: Denies episodes of fever and night sweats. Not significantly fatigued. Normal appetite. Neuro: Denies TENA, vertigo, dizziness and imbalance. HEENT: No recent change in voice, vision or hearing. Resp: Denies cough, wheeze and hemoptysis. CVS: Has mild chronic edema both ankles. GI: Denies dysgeusia. Denies symptoms of stomatitis. Denies dysphagia and odynophagia. Denies reflux, n/v, change in bowel habits and abdominal pain. : Denies dysuria or gross hematuria. Endo: Denies hot flashes. Denies polyuria and polydipsia. Denies heat and cold intolerance. Musculoskeletal: Aches all over. Derm: Denies rash. Denies jaundice and diffuse pruritis. Heme: Denies unusual bleeding and unexplained bruising. Psych: Normal mood. PHYSICAL EXAM: Vitals: Blood pressure 132/91, pulse 61, temperature 36.7 ?C (98 ?F), temperature source Oral, weight 113.9 kg (251 lb). Well-appearing and in no acute distress. EYES: Sclerae are anicteric bilaterally. ENT: Oral mucosa is unremarkable. NECK: Supple. LYMPHATIC: There is no palpable cervical, supraclavicular or axillary or inguinal adenopathy. RESPIRATORY: Inspiratory breath sounds are of normal intensity in all hanson. CARDIOVASCULAR: Rhythm is regular. Normal intensity S1/S2. ABDOMEN: The abdomen is nondistended. There is no organomegaly. No tenderness. Extremities: Free of edema. SKIN: No jaundice or rash. No petechiae. 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 No focal motor weakness. ASSESSMENT/PLAN: 1) MUGS. IgG lambda 0.34 g/dL at initial diagnosis. 5-9% polytypic plasma cells. -Discussed small potential risk progression to MM. Plan: -Appropriate lab work today to assess. Recheck B-12. 2) Sensory neuropathy. No evidence amyloidosis on original bone marrow biopsy. EMG suggestive of small fiber neuropathy. -Symptoms have remained stable the last few years. Plan: -Monitor. 3) CAD/Angina. He is having active chest pain. I advised him to get emergency evaluation but he declines. He said he has had this pain off and on now for about the last week and plans to go to the emergency room tomorrow. No amount of discussion or coaxing would convince him to go now. DO Lucia Chu PA-C 07/01/2018 5:53 PM Signed Attempted to call patient. Home cell # has been changed or disconnected. Will call work number tomorrow. Chepe Pandya PA-C Referring Provider: SELF [[id number]] Allergies As of Date: 06/28/2018 Noted Allergy Reaction FLEXERIL (CYCLOBENZAPRINE HCL) 12/20/2012 8 - GI Upset TRAMADOL 12/16/2014 8 - GI Upset VICODIN (HYDROCODONE-ACETAMINOPHE*12/13/2009 8 - GI Upset Date Reviewed: 06/28/2018 Reviewed by: Alex Harrell - Fully Assessed Reason for Visit: Established Patient [175] Primary Visit Diagnosis:MGUS (monoclonal gammopathy of unknown significance) [D47.2] Order(s):KAPPA/NIELSON,FREE,SER [SQKLFRS] Order #: [id number] FUTURE PROTEIN ELECTROPHORESIS W/INTERP [SQSEPG] Order #: [id number] FUTURE MONOCLONAL PROT BLD W/INTERP [SQMPASRM] Order #: [id number] FUTURE COMP METABOLIC PANEL [SQCMP] Order #: [id number] FUTURE LD LACTATE DEHYDRO [SQLD6] Order #: [id number] FUTURE SHARLA CBC AND DIFF [SQWCBCDF] Order #: [id number] FUTURE VITAMIN B12 BLOOD [SQB12] Order #: [id number] FUTURE XR BONE SURVEY ROUTINE [3809884] Order #: [id number] FUTURE Follow-up and Disposition History Recorded Prescriptions as of 06/28/2018 Sig: BUSPIRONE 10 MG TABLET Take 1 tablet by mouth twice * ZOLPIDEM 10 MG TABLET Take 1 tablet by mouth daily * NICOTINE 10 MG INHALATION CAR* Inhale 1 Puff as instructed a* ASPIRIN 81 MG TABLET,DELAYED * Take 81 mg by mouth once kristen* ISOSORBIDE MONONITRATE ER 60 * Take 60 mg by mouth once kristen* RANOLAZINE ER 500 MG TABLET,E* Take 500 mg by mouth twice da* FLUTICASONE 44 MCG/ACTUATION * Inhale 1 Puff as instructed t* CPAP Initiate Auto PAP @ 5/20 cm o* PRAVASTATIN 20 MG TABLET Take 2 tablets by mouth daily* CARVEDILOL 25 MG TABLET TAKE 2 TABLETS BY MOUTH TWICE* LOSARTAN 100 MG-HYDROCHLOROTH* TAKE 1 TABLET BY MOUTH ONCE D* CLOPIDOGREL 75 MG TABLET Take 75 mg by mouth once kristen* NITROGLYCERIN 0.4 MG SUBLINGU* Dissolve 1 tablet under the t* TIZANIDINE 4 MG TABLET Take 1 tablet by mouth every * OMEPRAZOLE 40 MG CAPSULE,BRYNN* Take 1 capsule by mouth once * DULOXETINE 60 MG CAPSULE,BRYNN* TAKE 1 CAPSULE BY MOUTH ONCE * VENTOLIN HFA 90 MCG/ACTUATION* INHALE 2 PUFFS INSTRUCTED * Medication notes this encounter BUSPIRONE 10 MG TABLET >> Nasima Schwab MA 06/28/2018 11:15 AM >> NASIMA SCHWAB MA SunJun 28, 2018 11:15 AM Duplicate COMPRESSION STOCKING, KNEE HIGH, REGULAR LENGTH, SMALL >> Nasima Schwab MA 06/28/2018 11:17 AM >> NASIMA SCHWAB MA SunJun 28, 2018 11:17 AM Not using. Problem List As Of Date 06/28/2018 Noted Resolved Dysuria [R30.0] INVALID FOR*04/11/2018 Prostatitis, unspecified [N41.9] INVALID FOR*12/11/2016 TOBACCO USE DISORDER [F17.200] ESOPHAGEAL REFLUX [K21.9] Chronic depression [F32.9] JOINT PAIN-FOREARM [M25.539] INVALID FOR* GANGLION UNSPECIFIED [M67.40] INVALID FOR* HEMORRHOIDS EXTERNAL THROMBOSED [K64.5] INVALID FOR* Postoperative pain, acute, groin, right [R10.31* More... Unspecified Essential Hypertension [I10] Abdominal Pain, Epigastric [R10.13] Nausea AND Vomiting [R11.2] Sprain and strain of unspecified site of foot [*INVALID FOR* Pain in limb [M79.609] INVALID FOR* Enthesopathy of ankle and tarsus, unspecified [*INVALID FOR* 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 Hypertension goal BP (blood pressure) < 140/90 * 04/11/2018 Hyperlipidemia [E78.5] Inflamed skin tag [L91.8] INVALID FOR*12/11/2016 CECILY (obstructive sleep apnea) [G47.33] INVALID FOR* More... Left-sided low back pain with left-sided sciati*INVALID FOR* Left buttock pain [M79.18] INVALID FOR* Ischial bursitis of left side [M70.72] INVALID FOR* Gallbladder polyp [K82.4] INVALID FOR* Internal hemorrhoids [K64.8] INVALID FOR* Diverticulosis of large intestine without hemor*INVALID FOR* Hyperplastic colonic polyp [K63.5] INVALID FOR* Difficult intubation [T88.4XXA] INVALID FOR* Difficult airway [T88.4XXA] INVALID FOR* More... Primary osteoarthritis of both hips [M16.0] INVALID FOR* Piriformis syndrome, left [G57.02] INVALID FOR* Trochanteric bursitis of both hips [M70.61, M70*INVALID FOR* Chest pain [R07.9] INVALID FOR*02/22/2018 Priority: A More... SOB (shortness of breath) [R06.02] INVALID FOR*02/22/2018 Priority: B More... Obesity, Class II, BMI 35-39.9 [E66.9] INVALID FOR* S/P primary angioplasty with coronary stent [Z9*INVALID FOR* Coronary artery disease of [place] artery of mally*INVALID FOR* More... MGUS (monoclonal gammopathy of unknown signific*INVALID FOR* Encounter Status:Closed by ALEX HARRELL DO on 06/28/18 OFFICE VISIT REPORT Observed: 05/20/2018 Status: F Source: [place] 9:41 AM [place] [id number] [address] [place] [id number] OFFICE VISIT Date of Service: 04/29/18 MR#: [id number] Acct: [id number] Patient: TWIN NEWMAN Rep #: [id number] : 1965 Provider: Misha Bacon MD Age/Sex: 53/M [place] [facility] [place] Status: Signed Intake Intake Visit Reasons: LLEY to see, wound ck Allergies acetaminophen [From Vicodin] Adverse Reaction (Verified 04/25/18 12:49) Upset Stomach cyclobenzaprine [From Flexeril] Adverse Reaction (Verified 04/25/18 12:49) Upset Stomach hydrocodone bitartrate [From Vicodin] Adverse Reaction (Verified 04/25/18 12:49) Upset Stomach tramadol Adverse Reaction (Verified 04/25/18 12:49) Upset Stomach Medications Zolpidem Tartrate [Ambien] 10 mg PO QHS PRN PRN 01/08/15 [History Confirmed 04/25/18] Losartan/Hydrochlorothiazide [Losartan-Hctz 100-25 mg Tab] 1 ea PO DAILY 03/09/17 [History Confirmed 04/25/18] Albuterol IH (ProAir) [Proair Hfa] 1 - 2 puff INHALATION Q6H PRN PRN 02/20/18 [History Confirmed 04/25/18] Duloxetine HCl 60 mg PO DAILY 02/20/18 [History Confirmed 04/25/18] aspirin 81 mg tablet,delayed release 81 mg PO DAILY 03/16/18 [History Confirmed 04/25/18] carvedilol 25 mg tablet 50 mg PO BID 03/16/18 [History Confirmed 04/25/18] pravastatin 40 mg tablet 40 mg PO DAILY 03/16/18 [History Confirmed 04/25/18] isosorbide mononitrate ER 60 mg tablet,extended release 24 hr 60 mg PO QDAY #30 tab 04/05/18 [Rx Confirmed 04/25/18] Buspirone HCl 10 mg PO BID 04/09/18 [History Confirmed 04/25/18] Nitroglycerin [Nitrostat] 0.4 mg SUBLINGUAL Q5M PRN 04/09/18 [History Confirmed 04/25/18] Omeprazole 40 mg PO DAILY 04/09/18 [History Confirmed 04/25/18] Doxycycline Monohydrate 100 mg PO BID #20 cap 04/25/18 [Rx] Ranolazine [Ranexa] 500 mg PO BID 04/25/18 [History Confirmed 04/25/18] clopidogrel 75 mg tablet 75 mg PO DAILY #90 tab 04/30/18 [Rx] Nursing Note Patient here for wound check right femoral artery: it is well healed with no redness, ecchymosis, edema and it is not draining. The skin is completely healed over. A very small (< pea sized) hematoma palpable at site. No bruit heard. U/S done last week was negative for pseudoaneurysm. Pt states it is no longer painful and he wants to return to work this afternoon. Dr. Bacon filled out return to work slip for light duty (no greater than 10 lbs lifting) for this week, then no restrictions next week. 05/20/18 0941 <Electronically signed by Misha Bacon MD> Date Misha Bacon MD Cosigner Signature: Date (if applicable) CC: Nasima Orr ARTERIAL DUPLEX US, Observed: 04/25/2018 Status: F Source: [facility] 3:20 PM [facility] REPOSITORY [facility] Cardiovascular Services [address] [place] [address] Art Duplex US Unilat Lower Ext 04/25/18 1335 MR#: [id number] Acct: [id number] Name: TWIN NEWMAN Rep #: [id number] : 1965 53 From: Landon Loza MD Attending Dr: Status: DEP ER Ordering Dr: Bruce Garcia MD Date: 04/25/18 Location: ED Sex: M C Admitted: Reason For Study: RT groin pain s/p heart cath Right Velocities Left Velocities IMAGE ASSEMBLER - .91 x .90 cm with a velocity of 115.0 cm/s IMAGE ASSEMBLER - .90 x .90 cm with a velocity of 106.0 cms CFVdemonstrates normal phasic doppler signal CFV demonstrates normal phasic doppler signal. No evidence of PSA or AV fistula. Procedure Exam performed portable in ED. Interpretation Summary Common femoral arteries appear bilaterally patent, demonstrating pulsatile color flow bilaterally. Common femoral veins are patent bilaterally, demonstrating normal, phasic venous flow. There is no evidence of pseudoanuerysm, arterio-venous fistula, or other iatrogenic abnormality on either side. Ordering Physician: Bruce Garcia Referring Physician: Misha Bacon Performed By: Kita Feliciano RVT 04/25/18 1520 Date Landon Loza MD CC: Lucia Pandya; Bruce Garcia MD Date Dictated: 04/25/18 1335 Date Transcribed: 04/25/18 152 Assembly Adjuster: Signed DISCHARGE INSTRUCTION Observed: 04/25/2018 Status: F Source: [place] 2:23 PM [facility] REPOSITORY [facility] Medical Records Department [address] [place] [address] Discharge Instruction 04/25/18 1422 MR#: [id number] Acct: [id number] Name: TWIN NEWMAN Rep #: [id number] : 1965 53 From: Bruce Garcia MD PCP: Lucia Pandya Status: REG ER ED Disposition - Plan for ED Patient: Chief Complaint: Wound Check Instructions: ED Wound Infec After Surgery Prescriptions: Doxycycline Monohydrate 100 mg PO BID #20 cap Referrals: Lucia Pandya PA [Primary Care Provider] - Misha Bacon MD [STAFF PHYSICIAN] - What to do if you have Problems For any increased pain, shortness of breath, bleeding, nausea or vomiting, chest pain, or any unexpected problems, contact your Primary Care Provider. Call [facility] ([phone]) or report to the closest Emergency Room. Call 911 if necessary. 04/25/18 1423 <Electronically signed by Bruce Garcia MD> Date Bruce Garcia MD Cosigner Signature (If Indicated): Date CC: Lucia Pandya EMERGENCY DEPARTMENT Observed: 04/25/2018 Status: F Source: [place] SUMMARY 2:20 PM [facility] REPOSITORY [facility] Medical Records Department [address] [place] [address] Emergency Department Summary 04/25/18 1417 MR#: [id number] Acct: [id number] Name: TWIN NEWMAN Rep #: [id number] : 1965 53 From: Bruce Garcia MD PCP: Lucia Pandya Status: REG ER - ER Visit Summary Date of Service: 04/25/18 Chief Complaint: Oozing and seeping from right groin wound History of Present Illness: The patient is a 53 M who presents with oozing and seeping from her right groin wound. He had a heart cath 1 week ago. A mynx closure device was used. The patient returned to work. Today he noticed some oozing from the wound. He was sent in by cardiology for evaluation for infection or possible pseudoaneurysm. Physical Examination: Afebrile vitals are stable Moist mucous membranes Heart regular rate and rhythm There is some induration of the right groin with thin bloody purulent drainage no active bleeding I do not appreciate fluctuance Neurovascularly intact distally difficult to palpate his dorsalis pedis pulse but there is a strong Doppler signal with brisk capillary refill normal sensation light touch Test Results: Arterial duplex shows no evidence of hematoma pseudoaneurysm or fistula. Emergency Department Course and Treatment: Patient does have evidence of a right groin wound infection. I do not believe there is an abscess as I do not appreciate any fluctuance and there is only small amount of drainage. Patient was placed on doxycycline. Will follow-up as an outpatient. Treatment Plan: [] Disposition: Discharge Impression: Right groin wound infection This note was generated with Fleksy dictation software. It may contain incorrect words, spelling, and punctuation that were not noted in review of the chart prior to signing ED Disposition - Plan for ED Patient: Chief Complaint: Wound Check Referrals: Lucia Pandya PA [Primary Care Provider] - What to do if you have Problems For any increased pain, shortness of breath, bleeding, nausea or vomiting, chest pain, or any unexpected problems, contact your Primary Care Provider. Call [facility] ([phone]) or report to the closest Emergency Room. Call 911 if necessary. 04/25/18 1420 <Electronically signed by Bruce Garcia MD> Date Bruce Garcia MD Cosigner Signature (If Indicated): Date CC: Lucia Pandya 12 LEAD ELECTROCARDIOGRAM Observed: 04/23/2018 Status: F Source: [place] 2:14 PM [facility] [place] REPOSITORY [facility] Cardiovascular Services [address] [place] [address] 12 Lead EKG 04/18/18 0559 MR#: [id number] Acct: [id number] Name: TWIN NEWMAN Rep #: [id number] : 1965 53 From: Misha Bacon MD Attending Dr: Misha Bacon MD Status: [facility] Ordering Dr: Misha Bacon MD Date: 04/18/18 Location: [facility] Sex: M C Admitted: Test Reason : AM EKG Blood Pressure : / mmHG Vent. Rate : 071 BPM Atrial Rate : 071 BPM P-R Int : 204 ms QRS Dur : 096 ms QT Int : 398 ms P-R-T Axes : 052 043 004 degrees QTc Int : 432 ms Normal sinus rhythm Normal ECG When compared with ECG of 10-APR-2018 05:00, No significant change was found Confirmed by MISHA BACON ([id number]), deputy editor in chief YORDY BOWDEN ([id number]) on 04/23/2018 2:14:06 PM Referred By: Misha Bacon Confirmed By:MISHA BACON 04/23/18 1414 Date Misha Bacon MD CC: Lucia Pandya; Misha Bacon MD Signed DISCHARGE INSTRUCTION Observed: 04/18/2018 Status: F Source: [place] 6:57 AM [facility] REPOSITORY [facility] Medical Records Department [address] [place] [address] Instructions for Home/Discharge Instructions 04/18/18 0653 MR#: [id number] Acct: [id number] Name: TWIN NEWMAN Rep #: [id number] : 1965 53 From: Cachorro Domingo TICKET SALES AGENTJasonC PCP: Lucia Pandya Status: ADM TRISTIN Discharge Diet: Low fat/ Low Cholesterol Discharge Activity: Return to Normal Activity May shower in (days): 1 May resume sexual activity in: 1-2 weeks Lifting Restrictions: Do not lift anything greater than 10 pounds for 3 days Call your doctor if your incision/area has: Continuous Slow Oozing, Sudden Increased Bleeding, Increased Pain/ Swelling, Increased Redness, Foul Smelling Discharge, Swelling at the incision site Call your doctor if you observe: Fever of 101 or Higher, Shortness of breath, Chest pain Remove Dressing in (days):: 1 Cleanse incision/area with: Soap AND Water Additional Instructions: You will remain on Plavix for at least one year. If anyone asks you to stop this medication, please contact the [facility] first. You are scheduled to see Cachorro Martin, Nurse Practitioner, on 05/09/2018 at 9:30 Am for further evaluation. If this date and time is not suitable for you, please call the [facility] office to reschedule. If you have any questions or concerns, please call the [facility] office at [phone]. Allergies/Adverse Reactions: Allergies acetaminophen [From Vicodin] Adverse Reaction (Verified 04/16/18 09:17) Upset Stomach cyclobenzaprine [From Flexeril] Adverse Reaction (Verified 04/16/18 09:17) Upset Stomach hydrocodone bitartrate [From Vicodin] Adverse Reaction (Verified 04/16/18 09:17) Upset Stomach tramadol Adverse Reaction (Verified 04/16/18 09:17) Upset Stomach Medications to take at Discharge Zolpidem Tartrate [Ambien] 10 mg PO QHS PRN PRN 01/08/15 Losartan/Hydrochlorothiazide [Losartan-Hctz 100-25 mg Tab] 1 ea PO DAILY 03/09/17 Albuterol IH (ProAir) [Proair Hfa] 1 - 2 puff INHALATION Q6H PRN PRN 02/20/18 Duloxetine HCl 60 mg PO DAILY 02/20/18 aspirin 81 mg tablet,delayed release 81 mg PO DAILY 03/16/18 carvedilol 25 mg tablet 50 mg PO BID 03/16/18 clopidogrel 75 mg tablet 75 mg PO DAILY 03/16/18 pravastatin 40 mg tablet 40 mg PO DAILY 03/16/18 isosorbide mononitrate ER 60 mg tablet,extended release 24 hr 60 mg PO QDAY #30 tab 04/05/18 Buspirone HCl 10 mg PO BID 04/09/18 Nitroglycerin [Nitrostat] 0.4 mg SUBLINGUAL Q5M PRN 04/09/18 Omeprazole 40 mg PO DAILY 04/09/18 Primary Care Physician: Lucia Pandya PA [Primary Care Provider] - Test Results: Test results from this visit will be discussed in further detail at your follow-up appointment, if applicable. Please Follow Up With: Cachorro Domingo Nurse Practitioner When: 05/09/2018 @ 9:30 AM Proposed Discharge Date: 04/18/18 Cardiac Rehabilitation Info Cardiac Rehabilitation Program Information: Cardiac Rehabilitation is important for patients like you who are recovering from a heart problem. Cardiac rehabilitation programs are recognized as integral to the continued care of the patient with coronary heart disease. The cardiac rehabilitation program is designed to optimize a patient's physical, psychological, and social functioning. Health medicare biller work in cardiac rehabilitation programs and assist you with getting the treatments you need to get stronger and healthier - like exercise, healthy eating habits, and medications. Cardiac rehabilitation has been show to help people with heart problems live longer and have better life enjoyment than people who do not go to cardiac rehabilitation. Please contact the Cardiac Rehabilitation Program at [facility] at in two weeks if you have not heard from them. 04/18/18 0657 <Electronically signed by Cachorro Domingo TICKET SALES AGENTJasonC> Date Cachorro Domingo TICKET SALES AGENT-C CC: Lucia Pandya CBC-COMPLETE BLOOD CNT Collected: 04/18/2018 Status: F Source: [place] NO DIFF 4:10 AM [facility] REPOSITORY TYPE CODE TESTS RESULT OUT OF RANGE REFERENCE UNITS LAB L100.1000 4.4-11.0 K/mm3 Normal WBC 6.5 LAB L100.1200 4.6-6.2 M/mm3 Low RBC 4.13 LAB L100.1300 13.0-16.5 g/dl Normal HGB 13.5 LAB L100.1400 40-54 % Normal HCT 41.1 LAB L100.1500 80-94 fL High MCV 99.5 LAB L100.1600 27.0-32.0 pg High MCH 32.7 LAB L100.1700 32-36 g/gl Normal MCHC 32.8 LAB L100.1810 11.6-14.6 % High RDW CV 15.0 LAB L100.1820 35.1-43.9 fl High RDW SD 53.6 LAB L100.1900 150-450 K/mm3 Normal PLT 201 LAB L100.2000 6.2-12.0 fl Normal MPV 8.5 Performed By: #### L100.0500 #### [facility] [address], [address] COMPREHENSIVE METABOLIC Collected: 04/18/2018 Status: F Source: [place] PROFIL 4:10 AM [facility] [place] REPOSITORY TYPE CODE TESTS RESULT OUT OF RANGE REFERENCE UNITS LAB L501.0100 74-106 mg/dL Normal GLU 104 Result Comment: Fasting Glucose result from 100 to 125 mg/dL suggests IMPAIRED HOMEOSTASIS per A.D.A. criteria. Please note revised GLUCOSE reference range effective 2017. LAB L501.1000 7-18 mg/dL Normal BUN 18 LAB L501.1100 0.70-1.30 mg/dL Normal CREAT,SERUM 1.03 Result Comment: The validity of the calculated GFR AND GFRAA in patients over 70 years has not been determined. Clinical correlation is essential. LAB L501.1110 >60 mL/min Normal EST GFR 80 Result Comment: Non- GFR Calc LAB L501.1115 >60 mL/min Normal EST GFR - AA 97 Result Comment: GFR Calc LAB L501.1255 ml/min Normal Estimated CRCL 77.54 LAB L501.1300 10-20 RATIO Normal BUN/CRE 17.5 LAB L501.1500 6.4-8. g/dL Normal 2 T PROT 7.0 LAB L501.1800 3.2-5. g/dL Normal 0 ALB 3.3 LAB L501.1950 2.2-4. g/dL Normal 2 GLOB 3.7 LAB L501.2000 0.9-2. RATIO Normal 4 A/G 0.9 LAB L501.2200 8.5-10 mg/dL Normal .1 CA 8.6 LAB L501.4100 15-37 U/L Normal AST 19 LAB L501.4305 45-117 U/L Normal ALK P 60 LAB L501.4405 16-61 U/L Normal ALT 22 LAB L501.4600 0.20-1 mg/dL Normal .00 T BILI 0.20 LAB L501.5300 136-14 mmol/L Normal 5 NA 141 LAB L501.5600 3.5-5. mmol/L Normal 1 K 4.5 LAB L501.5900 98-107 mmol/L Normal CL 105 LAB L501.6100 21.0-3 mmol/L Normal 2.0 CO2 31.0 LAB L501.6200 5-15 Normal GAP 5 Performed By: #### L500.4050, L500.4100 #### [facility] [address] [place], [place], [address] LIPID PROFILE Collected: 04/18/2018 Status: F Source: SHAR[place] 4:10 AM [facility] [place] REPOSITORY TYPE CODE TESTS RESULT OUT OF RANGE REFERENCE UNITS LAB L501.4900 200 mg/dL High CHOL 230 Result Comment: <200 mg/dL Desirable 200-240 mg/dL Borderline >240 mg/dL High Risk LAB L501.5000 mg/dL High TRIG 444 Result Comment: The drugs N-Acetylcysteine and Metamizole may falsely depress this assay. TRIGLYCERIDE IS GREATER THAN 400 mg/dL. LDL RESULT IS INVALID AND WILL NOT BE REPORTED. Serum Triglycerides Reference Interval Normal <150 mg/dL Borderline high 150 - 199 mg/dL High 200 - 499 mg/dL Very High > or = 500 mg/dL LAB L501.6400 mg/dL Low HDL 33 Result Comment: The drugs N-Acetylcysteine and Metamizole may falsely depress this assay. Reference Range HDL <40 mg/dL Low HDL Cholesterol HDL >or= 60 mg/dL High HDL Cholesterol LAB L501.6500 0-130 mg/dL Test Normal not performed LDL LAB L501.6600 5-40 mg/dL Test Normal not performed VLDL Performed By: #### L500.4050, L500.4100 #### [facility] [address] [place], [address] M R STAPH AUREUS Collected: 04/17/2018 Status: F Source: SHARLA DNA BY PCR 10:25 PM [facility] [place] REPOSITORY Order Comment: RECOLLECT. PREVIOUS SPECIMEN REJECTED DUE TO NOT LABELED. 04/17/18 1837 Source: NASAL SWAB TYPE CODE TESTS RESULT OUT OF RANGE REFERENCE UNITS LAB L8200.1100 Negative Normal MRSA Negative RESULT Performed By: #### L8200.1000 #### [facility] [address] [place], [address] ACT ACTIVATED CLOTTING Collected: 04/17/2018 Status: F Source: SHARLA TIME 1:45 PM [facility] [place] REPOSITORY TYPE CODE TESTS RESULT OUT OF RANGE REFERENCE UNITS LAB L9100.0100 74-137 sec High ACTk CLOT 208 TIME Performed By: #### L9100.0100 #### [facility] Point of Care [address] [place] [address] CBC-COMPLETE BLOOD CNT Collected: 04/17/2018 Status: F Source: [place]AR[place] NO DIFF 9:47 AM [facility] [place] REPOSITORY TYPE CODE TESTS RESULT OUT OF RANGE REFERENCE UNITS LAB L100.1000 4.4-11.0 K/mm3 Normal WBC 6.5 LAB L100.1200 4.6-6.2 M/mm3 Normal RBC 4.60 LAB L100.1300 13.0-16.5 g/dl Normal HGB 15.1 LAB L100.1400 40-54 % Normal HCT 45.3 LAB L100.1500 80-94 fL High MCV 98.5 LAB L100.1600 27.0-32.0 pg High MCH 32.8 LAB L100.1700 32-36 g/gl Normal MCHC 33.3 LAB L100.1810 11.6-14.6 % High RDW CV 15.2 LAB L100.1820 35.1-43.9 fl High RDW SD 54.0 LAB L100.1900 150-450 K/mm3 Normal PLT 222 LAB L100.2000 6.2-12.0 fl Normal MPV 8.4 Performed By: #### L100.0500, L500.2500 #### [facility] [address] [place], [address] BASIC METABOLIC Collected: 04/17/2018 Status: F Source: SHARLA PROFILE (BMP) 9:47 AM [facility] [place] REPOSITORY TYPE CODE TESTS RESULT OUT OF RANGE REFERENCE UNITS LAB L501.0100 74-106 mg/dL Normal GLU 98 Result Comment: Please note revised GLUCOSE reference range effective 2017. LAB L501.1000 7-18 mg/dL High BUN 21 LAB L501.1100 0.70-1.30 mg/dL Normal CREAT,SERUM 1.07 Result Comment: The validity of the calculated GFR AND GFRAA in patients over 70 years has not been determined. Clinical correlation is essential. LAB L501.1110 >60 mL/min Normal EST GFR 77 Result Comment: Non- GFR Calc LAB L501.1115 >60 mL/min Normal EST GFR - AA 93 Result Comment: GFR Calc LAB L501.1300 10-20 RATIO Normal BUN/CRE 19.6 LAB L501.2200 8.5-10.1 mg/dL CA Normal 9.3 LAB L501.5300 136-145 mmol/L NA Normal 142 LAB L501.5600 3.5-5.1 mmol/L K Normal 4.1 LAB L501.5900 98-107 mmol/L CL Normal 103 LAB L501.6100 21.0-32.0 mmol/L Normal CO2 32.0 LAB L501.6200 5-15 Normal GAP 7 Performed By: #### L100.0500, L500.2500 #### [facility] [address] [place], [address] PROTHROMBIN TIME W/INR Collected: 04/17/2018 Status: F Source: SHARLA 9:47 AM [facility] [place] REPOSITORY TYPE CODE TESTS RESULT OUT OF RANGE REFERENCE UNITS LAB L300.4150 11.7-14.9 SECONDS Normal PROTIME 12.5 LAB L300.4200 Normal INR 0.9 Performed By: #### L300.3900, L300.4310 #### [facility] [address] [place], [address] PARTIAL THROMBOPLAST Collected: 04/17/2018 Status: F Source: SHARLA TIME 9:47 AM [facility] [place] REPOSITORY TYPE CODE TESTS RESULT OUT OF RANGE REFERENCE UNITS LAB L300.4310 24.1-36.2 Seconds Normal PTT 28.8 Performed By: #### L300.3900, L300.4310 #### [facility] [address] [place], [address] 12 LEAD ELECTROCARDIOGRAM Observed: 04/15/2018 Status: F Source: [place] 2:13 PM [facility] [place] REPOSITORY [facility] Cardiovascular Services [address] [place] [address] 12 Lead EKG 04/10/18 0500 MR#: [id number] Acct: [id number] Name: TWIN NEWMAN Rep #: [id number] : 1965 53 From: Geovani Ashford MD Attending Dr: Kiki Arias MD Status: DIS TRISTIN Ordering Dr: Aisha Vázquez Date: 04/10/18 Location: [facility] Sex: M C Admitted: 04/09/18 Test Reason : AM EKG Blood Pressure : / mmHG Vent. Rate : 057 BPM Atrial Rate : 057 BPM P-R Int : 204 ms QRS Dur : 094 ms QT Int : 436 ms P-R-T Axes : 059 056 -16 degrees QTc Int : 424 ms Sinus bradycardia with sinus arrhythmia Otherwise normal ECG When compared with ECG of 09-APR-2018 12:54, MANUAL COMPARISON REQUIRED, DATA IS UNCONFIRMED Confirmed by GEOVANI ASHFORD MD ([id number]), deputy editor in chief YORDY BOWDEN ([id number]) on 04/15/2018 2:13:02 PM Referred By: Cachorro Domingo Confirmed By:GEOVANI ASHFORD MD 04/15/18 1413 Date Geovani Ashford MD CC: Lucia Pandya; ASHER Vázquez; Kiki Arias MD Signed 12 LEAD ELECTROCARDIOGRAM Observed: 04/11/2018 Status: F Source: [place] 1:46 PM [facility] [place] REPOSITORY [facility] Cardiovascular Services [address] [place] [address] 12 Lead EKG 04/09/18 1254 MR#: [id number] Acct: [id number] Name: TWIN NEWMAN Rep #: [id number] : 1965 53 From: Geovani Ashford MD Attending Dr: Kiki Arias MD Status: DIS TRISTIN Ordering Dr: Pepper Elizondo MD Date: 04/09/18 Location: [facility] Sex: M C Admitted: 04/09/18 Test Reason : CP Blood Pressure : / mmHG Vent. Rate : 081 BPM Atrial Rate : 081 BPM P-R Int : 192 ms QRS Dur : 088 ms QT Int : 374 ms P-R-T Axes : 053 048 -03 degrees QTc Int : 434 ms Normal sinus rhythm Normal ECG Confirmed by GEOVANI ASHFORD MD ([id number]), deputy editor in chief YORDY BOWDEN ([id number]) on 04/11/2018 1:45:40 PM Referred By: Cachorro Domingo Confirmed By:GEOVANI ASHFORD MD 04/11/18 1345 Date Geovani Ashford MD CC: Lucia Pandya; Pepper Elizondo MD; Kiki Arias MD Signed PROGRESS Observed: 04/11/2018 Status: COMPLETED Source: [place] 11:[address] [facility] REPOSITORY HNO ID: [id number] Author: Lucia Pond (Pa-Emili) Mumtaz Service: (none) Author Type: Physician Metal Flow Coordinator Type: Progress Notes Filed: 04/11/2018 2:22 PM Note Text: Transitional Care Management Progress Note The patients TCM visit was performed within the 7 days of discharge. Patient's Date of discharge: Discharge 04/10/18 Date of initial coordinator contact after discharge: 04/11/18 Discharge diagnosis: Unstable angina Coronary artery disease Medication review completed Yes Summary: 04/09/18 Admit [facility] through ED with acute chest pain with SOB: troponin negative, CBC, BMP, coags WNL. Treated in ED with NTG and ASA. Duonebs with improvement. EKG no change. CXR questionable small bilateral infiltrates vs atelectasis. No treatment initiated. 04/10/[address] Figueroa: LVEF 50%, inferior-mid severe basilar hypokinesis, elevated LVEDP 24mmHg. LM normal. LAD: mild luminal irregularities. Mid CX: stent patent, prox, distal mild irreg. Prox RCA 10-25% in-stent restenosis, mid RCA stent patent, distal RCA 50%. Right PLV 50-70%, Rt PDA: 50-75%. Recommendation: medical therapy. Discharged on Ranexa. Follow up in [address] Bacon. Post discharge history: continues with occasional twinge in mid chest. Nothing persistent. No use of NTG. Was thinking about returning to work today. Compliant with Ranexa. Continues to wheeze, albuterol MDI doesn't alleviate. Usually when lying down. No cough, fever, SOB. Routine activities well tolerated. Normal appetite. Continues to smoke. HISTORIES FAMILY HISTORY Problem Relation Age of Onset - Cancer Mother kidney - Cancer Father brain - Cancer Brother testicle - Cancer Sister non hodgkins lymphoma PAST MEDICAL HISTORY Diagnosis Date - Abdominal pain, epigastric - Abdominal pain, unspecified site - Anemia - Depressive disorder, not elsewhere classified - Difficult airway 02/05/2017 could not intubate could not ventilate - Difficult intubation 02/05/2017 - DVT (deep venous thrombosis) (HCC) 11/27/12 of right calf - Esophageal reflux - Gallbladder polyp - Hyperlipidemia 2011 - Hypertension - Insomnia - MGUS (monoclonal gammopathy of unknown significance) - Nausea AND vomiting - CECILY (obstructive sleep apnea) 01/25/2015 - Snoring - Stroke (HCC) - Tobacco use disorder - Transient ischemic attack (TIA) - Unspecified essential hypertension PAST SURGICAL HISTORY Procedure Laterality Date - CARPAL TUNNEL Bilateral 2015 - CHOLECYSTECTOMY 04/02/2017 laparoscopic cholecystectomy with cholangiograms R Cebul - COLONOSCOP W/ OR W/O BRSH SPEC Colonoscopy - COLONOSCOPY 01/02/2017 - EGD W/O BRSH SPECIMEN W/BX 04/04/07 - EGD W/O OR W/BRUSH/WASH 01/03/2013 EGD - G-ESOPH REFLX TST W/ELECTROD 04/04/07 - PAST SURGICAL HISTORY OF excision lymph node - PAST SURGICAL HISTORY OF vasectomy - PAST SURGICAL HISTORY OF 2009 left knee surgery - PAST SURGICAL HISTORY OF 2011 right foot surgery - PAST SURGICAL HISTORY OF Left 2016 knee surgery, fillers used Social History Marital status: Spouse name: Years of education: Number of children: 1 Occupational History Occupation Employer Comment [employer] Social History Main Topics Smoking status: Current Every Day Smoker Packs/day: 0.50 Years: 30.00 Types: Cigarettes Start date: 12/21/1986 Smokeless tobacco: Never Used Alcohol use: No Drug use: No Sexual activity: Yes Partners with: Female control/protection: Surgical ACTIVE PROBLEM LIST Dysuria Tobacco Use Disorder Esophageal Reflux Depressive Disorder, Not Elsewhere Classified Pain in Joint, Forearm GANGLION UNSPECIFIED HEMORRHOIDS EXTERNAL THROMBOSED Abdominal Pain, Unspecified Site Unspecified Essential Hypertension Abdominal Pain, Epigastric Nausea AND Vomiting Sprain of Foot, Unspecified Site Pain in Limb Enthesopathy of Ankle and Tarsus, Unspecified Herpes Sinus Tarsi Syndrome Dvt, Lower Extremity, Distal (Hcc) Anemia Pigmented Purpuric Dermatosis Hypertension Goal Bp (Blood Pressure) < 140/90 Hyperlipidemia Obesity Eccily (Obstructive Sleep Apnea) Left-Sided Low Back Pain With Left-Sided Sciatica Left Buttock Pain Ischial Bursitis of Left Side Gallbladder Polyp Internal Hemorrhoids Diverticulosis of Large Intestine Without Hemorrhage Hyperplastic Colonic Polyp Difficult Intubation Difficult Airway Primary Osteoarthritis of Both Hips Piriformis Syndrome, Left Trochanteric Bursitis of Both Hips Obesity, Class II, Bmi 35-39.9 S/P Primary Angioplasty With Coronary Stent Coronary Artery Disease of [place] Artery of [place] Heart With Stable Angina Pectoris (Hcc) Current Outpatient Prescriptions: aspirin, enteric coated (ASPIRIN, ENTERIC COATED) 81 mg EC tablet Take 81 mg by mouth once daily. Disp: Rfl: isosorbide mononitrate ER (IMDUR) 60 mg 24 hr tablet Take 60 mg by mouth once daily. Disp: Rfl: ranolazine ER (RANEXA) 500 mg 12 hr tablet Take 500 mg by mouth twice daily. Disp: Rfl: busPIRone (BUSPAR) 10 mg tablet Take 0.5 tablets by mouth three times daily. Titrate to 10mg twice a in 2 weeks if tolerating. Disp: 90 tablet Rfl: 0 pravastatin (PRAVACHOL) 20 mg tablet Take 2 tablets by mouth daily at bedtime. Disp: 90 tablet Rfl: 3 carvedilol (COREG) 25 mg tablet TAKE 2 TABLETS BY MOUTH TWICE DAILY. Disp: 360 tablet Rfl: 2 losartan-hydrochlorothiazide (HYZAAR) 100-25 mg per tablet TAKE 1 TABLET BY MOUTH ONCE DAILY. Disp: 90 tablet Rfl: 0 clopidogrel (PLAVIX) 75 mg tablet Take 75 mg by mouth once daily. Disp: Rfl: nitroglycerin sublingual (NITROQUICK) 0.4 mg SL tablet Dissolve 1 tablet under the tongue every 5 minutes as needed for Chest Pain. Disp: 1 Bottle of 25 Rfl: 1 tiZANidine (ZANAFLEX) 4 mg tablet Take 1 tablet by mouth every 8 hours as needed (muscle spasms). Disp: 30 tablet Rfl: 3 zolpidem (AMBIEN) 10 mg tab Take 1 tablet by mouth daily at bedtime for 90 days. Disp: 30 tablet Rfl: 2 Omeprazole (PRILOSEC) 40 mg capsule Take 1 capsule by mouth once daily. Disp: 90 capsule Rfl: 1 DULoxetine (CYMBALTA) 60 mg capsule TAKE 1 CAPSULE BY MOUTH ONCE DAILY. Disp: 90 capsule Rfl: 3 VENTOLIN HFA 90 mcg/actuation inhaler INHALE 2 PUFFS INSTRUCTED EVERY 6 HOURS NEEDED FOR WHEEZING/SHORTNESS OF BREATH. Disp: 18 Inhaler Rfl: 2 fluticasone (FLOVENT) 44 mcg/actuation inhaler Inhale 1 Puff as instructed twice daily. Disp: 1 Inhaler Rfl: 5 CPAP Initiate Auto PAP @ 5/20 cm of water with humidification. Mask (per patient preference) optional chin strap (if indicated) , filters, tubing, humidifier and lifetime supplies. Please fax downloads to [phone]. Disp: 1 Device Rfl: 0 Comp Stocking,Knee,Regular,Sml (T.E.D. KNEE [id number]) misc Compression to be 20-30 DX: venous insufficiency Disp: 2 Each Rfl: 6 No current facility-administered medications for this visit. ZOSTER VACCINE (SHINGRIX)(1 of 2) due on 2015 EXAM: BP 152/96 Pulse 76 Temp 36.4 ?C (97.5 ?F) (Tympanic) Resp 20 Wt 111.6 kg (246 lb) BMI 38.53 kg/m? Vitals 10/18/2017 11/20/2017 02/19/2018 02/21/2018 02/22/2018 02/26/2018 03/20/2018 SITTING SYSTOLIC 132 128 128 162 106 138 SITTING DIASTOLIC 80 82 82 82 78 76 Pleasant obese adult male in no acute distress. Alert and oriented all spheres. Normal affect and cognition though a little anxious. Speech normal. No deficits to learning or comprehension. Skin warm, dry, pink to lips and nailbeds. Normal turgor. Respirations regular and unlabored. HEENT WNL. TM's clear. Nose and oropharynx free from injection or lesion. No cervical lymph nodes. Thyroid non-tender, no masses Chest CTA. HRRR without murmur or gallop. Chest wall non-tender. Extrem: no clubbing, cyanosis, edema. Extremities are warm and pink with prompt capillary refill. ASSESSMENT/PLAN: 1. Unstable angina (HCC) - ICD9: 411.1, ICD10: I20.0 (primary diagnosis) No chest pain since admit. F/u in [address] Bacon. Recommend remain off until - ASPIRIN 81 MG TABLET,DELAYED RELEASE - ISOSORBIDE MONONITRATE ER 60 MG TABLET,EXTENDED RELEASE 24 HR - RANOLAZINE ER 500 MG TABLET,EXTENDED RELEASE,12 HR 2. S/P primary angioplasty with coronary stent - ICD9: V45.82, ICD10: Z95.5 - ASPIRIN 81 MG TABLET,DELAYED RELEASE 3. Obesity, Class II, BMI 35-39.9 - ICD9: 278.00, ICD10: E66.9 Will work on weight. 4. Essential hypertension with goal blood pressure less than 130/80 - ICD9: 401.9, ICD10: I10 - poor control: I think related to recent circumstance, anxiety. Recheck in 2 weeks. - Recommended regular aerobic exercise. - Recommend home blood pressure monitoring, to bring results in on next visit - Goal of BP <130/80 5. MIKE (generalized anxiety disorder) - ICD9: 300.02, ICD10: F41.1 Increase Buspar to 10mg TID, anticipate increase to 15mg TID 6. Tobacco use disorder - ICD9: 305.1, ICD10: F17.200 - Firm discussion. Absolutely must stop: agrees. Chantix, nicotine replacement hasn't worked in past. Trial increase in Buspar. Can manage anxiety with benzo if needed. Doesn't take tizanidine often. - Physiologic and physical aspects of tobacco addiction as well as strategies for quitting were discussed. - Counseling was given focusing on the harmful effects of this addiction especially given the patient's medical condition(s) which will be worsened because of the chemicals in tobacco. 7. CECILY (obstructive sleep apnea) - ICD9: 327.23, ICD10: G47.33 Wearing CPAP routinely 8. Chronic depression - ICD9: 311, ICD10: F32.9 Off Cymbalta: recommended resume. Need caution with stacking meds (tizanidine, Buspar, Zolpidem, Cymbalta, Buspar) F/u in 2 weeks NV BP and 3 months Patient (guardian) expressed understanding of instructions and agrees with plan. Lucia Pandya PA-C PROGRESS Observed: 04/11/2018 Status: COMPLETED Source: [place] 10:56 AM [facility] [place] REPOSITORY [facility] ID: [id number] Author: Kerri Ruvalcaba LPN Service: (none) Author Type: (none) Type: Progress Notes Filed: 04/11/2018 2:22 PM Note Text: TRANSITION CARE MANAGEMENT (TCM) INITIAL CONTACT Crew Attendant Outreach ? Provider Action/FYI: 04/11/18 1st attempt to reach patient but no answer and message left on voicemail to call office back. Patient returned call and will follow up in office today. ? ? Initial contact with patient post discharge, spoke to patient. Patient identified by name and . ? SUMMARY: -Pt discharged from [facility] on 04/10/18. -Admitted for: Unstable angina-primary CAD ? Do you have a hospital follow up appointment with your PCP? Appointment on Open Access today with Chepe Pandya PA-C. ? ? MEDICATIONS: Many patients have questions or concerns about their medications once they are home. Were you prescribed any new medications? If yes, what are those medications? Will discuss at hospital follow up ? Were you told to hold any medications? If yes, what are those medications? Will discuss at hospital follow up Were any of your medications discontinued? If yes, what are those medications? Will discuss at hospital follow up ? Do you have any questions about getting or taking your medications? Yes, Will discuss during hospital follow up ? Your discharge instructions/After visit Summary (AVS) are important in guiding you through the recovery process. Is there anything I might help you understand? Yes, Will discuss at hospital follow up ? Do you have all the necessary equipment and supplies at home? Yes ? Medical records from recent hospitalization: At nurse's station ? CNOV Observed: 04/11/2018 Status: COMPLETED Source: [place] 10:[address] [facility] REPOSITORY Office Visit (FAMPWS) TWIN NEWMAN ([id number]) 1965 M Date Time Provider Department 04/11/18 10:40 AM Lucia PANDYA) FAMPWS During your visit today, we recorded the following information about you: Temperature Pulse Respiration Blood pressure 97.5 degrees 76/minute 20/minute 152/96 Weight 111.6 kg Kerri Ruvalcaba LPN 04/11/2018 2:22 PM Signed TRANSITION CARE MANAGEMENT (TCM) INITIAL CONTACT Crew Attendant Outreach ? Provider Action/FYI: 04/11/18 1st attempt to reach patient but no answer and message left on voicemail to call office back. Patient returned call and will follow up in office today. ? ? Initial contact with patient post discharge, spoke to patient. Patient identified by name and . ? SUMMARY: -Pt discharged from [facility] on 04/10/18. -Admitted for: Unstable angina-primary CAD ? Do you have a hospital follow up appointment with your PCP? Appointment on Open Access today with Chepe Pandya PA-C. ? ? MEDICATIONS: Many patients have questions or concerns about their medications once they are home. Were you prescribed any new medications? If yes, what are those medications? Will discuss at hospital follow up ? Were you told to hold any medications? If yes, what are those medications? Will discuss at hospital follow up Were any of your medications discontinued? If yes, what are those medications? Will discuss at hospital follow up ? Do you have any questions about getting or taking your medications? Yes, Will discuss during hospital follow up ? Your discharge instructions/After visit Summary (AVS) are important in guiding you through the recovery process. Is there anything I might help you understand? Yes, Will discuss at hospital follow up ? Do you have all the necessary equipment and supplies at home? Yes ? Medical records from recent hospitalization: At nurse's station ? M Anibal Pandya PA-C 04/11/2018 2:22 PM Signed Transitional Care Management Progress Note The patients TCM visit was performed within the 7 days of discharge. Patient's Date of discharge: Discharge 04/10/18 Date of initial coordinator contact after discharge: 04/11/18 Discharge diagnosis: Unstable angina Coronary artery disease Medication review completed Yes Summary: 04/09/18 Admit [facility] through ED with acute chest pain with SOB: troponin negative, CBC, BMP, coags WNL. Treated in ED with NTG and ASA. Duonebs with improvement. EKG no change. CXR questionable small bilateral infiltrates vs atelectasis. No treatment initiated. 04/10/[address] Figueroa: LVEF 50%, inferior-mid severe basilar hypokinesis, elevated LVEDP 24mmHg. LM normal. LAD: mild luminal irregularities. Mid CX: stent patent, prox, distal mild irreg. Prox RCA 10-25% in-stent restenosis, mid RCA stent patent, distal RCA 50%. Right PLV 50-70%, Rt PDA: 50-75%. Recommendation: medical therapy. Discharged on Ranexa. Follow up in [address] Bacon. Post discharge history: continues with occasional twinge in mid chest. Nothing persistent. No use of NTG. Was thinking about returning to work today. Compliant with Ranexa. Continues to wheeze, albuterol MDI doesn't alleviate. Usually when lying down. No cough, fever, SOB. Routine activities well tolerated. Normal appetite. Continues to smoke. HISTORIES FAMILY HISTORY Problem Relation Age of Onset - Cancer Mother kidney - Cancer Father brain - Cancer Brother testicle - Cancer Sister non hodgkins lymphoma PAST MEDICAL HISTORY Diagnosis Date - Abdominal pain, epigastric - Abdominal pain, unspecified site - Anemia - Depressive disorder, not elsewhere classified - Difficult airway 02/05/2017 could not intubate could not ventilate - Difficult intubation 02/05/2017 - DVT (deep venous thrombosis) (HCC) 11/27/12 of right calf - Esophageal reflux - Gallbladder polyp - Hyperlipidemia 2011 - Hypertension - Insomnia - MGUS (monoclonal gammopathy of unknown significance) - Nausea AND vomiting - CECILY (obstructive sleep apnea) 01/25/2015 - Snoring - Stroke (HCC) - Tobacco use disorder - Transient ischemic attack (TIA) - Unspecified essential hypertension PAST SURGICAL HISTORY Procedure Laterality Date - CARPAL TUNNEL Bilateral 2015 - CHOLECYSTECTOMY 04/02/2017 laparoscopic cholecystectomy with cholangiograms R Cebul - COLONOSCOP W/ OR W/O BRSH SPEC Colonoscopy - COLONOSCOPY 01/02/2017 - EGD W/O [facility] SPECIMEN W/BX 04/04/07 - EGD W/O OR W/BRUSH/WASH 01/03/2013 EGD - G-ESOPH REFLX TST W/ELECTROD 04/04/07 - PAST SURGICAL HISTORY OF excision lymph node - PAST SURGICAL HISTORY OF vasectomy - PAST SURGICAL HISTORY OF 2010 left knee surgery - PAST SURGICAL HISTORY OF 2012 right foot surgery - PAST SURGICAL HISTORY OF Left 2016 knee surgery, fillers used Social History Marital status: Spouse name: Years of education: Number of children: 1 Occupational History Occupation Employer Comment [employer] Social History Main Topics Smoking status: Current Every Day Smoker Packs/day: 0.50 Years: 30.00 Types: Cigarettes Start date: 12/21/1986 Smokeless tobacco: Never Used Alcohol use: No Drug use: No Sexual activity: Yes Partners with: Female control/protection: Surgical ACTIVE PROBLEM LIST Dysuria Tobacco Use Disorder Esophageal Reflux Depressive Disorder, Not Elsewhere Classified Pain in Joint, Forearm GANGLION UNSPECIFIED HEMORRHOIDS EXTERNAL THROMBOSED Abdominal Pain, Unspecified Site Unspecified Essential Hypertension Abdominal Pain, Epigastric Nausea AND Vomiting Sprain of Foot, Unspecified Site Pain in Limb Enthesopathy of Ankle and Tarsus, Unspecified Herpes Sinus Tarsi Syndrome Dvt, Lower Extremity, Distal (Hcc) Anemia Pigmented Purpuric Dermatosis Hypertension Goal Bp (Blood Pressure) < 140/90 Hyperlipidemia Obesity Cecily (Obstructive Sleep Apnea) Left-Sided Low Back Pain With Left-Sided Sciatica Left Buttock Pain Ischial Bursitis of Left Side Gallbladder Polyp Internal Hemorrhoids Diverticulosis of Large Intestine Without Hemorrhage Hyperplastic Colonic Polyp Difficult Intubation Difficult Airway Primary Osteoarthritis of Both Hips Piriformis Syndrome, Left Trochanteric Bursitis of Both Hips Obesity, Class II, Bmi 35-39.9 S/P Primary Angioplasty With Coronary Stent Coronary Artery Disease of [place] Artery of [place] Heart With Stable Angina Pectoris (Hcc) Current Outpatient Prescriptions: aspirin, enteric coated (ASPIRIN, ENTERIC COATED) 81 mg EC tablet Take 81 mg by mouth once daily. Disp: Rfl: isosorbide mononitrate ER (IMDUR) 60 mg 24 hr tablet Take 60 mg by mouth once daily. Disp: Rfl: ranolazine ER (RANEXA) 500 mg 12 hr tablet Take 500 mg by mouth twice daily. Disp: Rfl: busPIRone (BUSPAR) 10 mg tablet Take 0.5 tablets by mouth three times daily. Titrate to 10mg twice a in 2 weeks if tolerating. Disp: 90 tablet Rfl: 0 pravastatin (PRAVACHOL) 20 mg tablet Take 2 tablets by mouth daily at bedtime. Disp: 90 tablet Rfl: 3 carvedilol (COREG) 25 mg tablet TAKE 2 TABLETS BY MOUTH TWICE DAILY. Disp: 360 tablet Rfl: 2 losartan-hydrochlorothiazide (HYZAAR) 100-25 mg per tablet TAKE 1 TABLET BY MOUTH ONCE DAILY. Disp: 90 tablet Rfl: 0 clopidogrel (PLAVIX) 75 mg tablet Take 75 mg by mouth once daily. Disp: Rfl: nitroglycerin sublingual (NITROQUICK) 0.4 mg SL tablet Dissolve 1 tablet under the tongue every 5 minutes as needed for Chest Pain. Disp: 1 Bottle of 25 Rfl: 1 tiZANidine (ZANAFLEX) 4 mg tablet Take 1 tablet by mouth every 8 hours as needed (muscle spasms). Disp: 30 tablet Rfl: 3 zolpidem (AMBIEN) 10 mg tab Take 1 tablet by mouth daily at bedtime for 90 days. Disp: 30 tablet Rfl: 2 Omeprazole (PRILOSEC) 40 mg capsule Take 1 capsule by mouth once daily. Disp: 90 capsule Rfl: 1 DULoxetine (CYMBALTA) 60 mg capsule TAKE 1 CAPSULE BY MOUTH ONCE DAILY. Disp: 90 capsule Rfl: 3 VENTOLIN HFA 90 mcg/actuation inhaler INHALE 2 PUFFS INSTRUCTED EVERY 6 HOURS NEEDED FOR WHEEZING/SHORTNESS OF BREATH. Disp: 18 Inhaler Rfl: 2 fluticasone (FLOVENT) 44 mcg/actuation inhaler Inhale 1 Puff as instructed twice daily. Disp: 1 Inhaler Rfl: 5 CPAP Initiate Auto PAP @ 5/20 cm of water with humidification. Mask (per patient preference) optional chin strap (if indicated) , filters, tubing, humidifier and lifetime supplies. Please fax downloads to [phone]. Disp: 1 Device Rfl: 0 Comp Stocking,Knee,Regular,Sml (T.E.D. KNEE [id number]) misc Compression to be 20-30 DX: venous insufficiency Disp: 2 Each Rfl: 6 No current facility-administered medications for this visit. ZOSTER VACCINE (SHINGRIX)(1 of 2) due on 2015 EXAM: BP 152/96 Pulse 76 Temp 36.4 ?C (97.5 ?F) (Tympanic) Resp 20 Wt 111.6 kg (246 lb) BMI 38.53 kg/m? Vitals 10/18/2017 11/20/2017 02/19/2018 02/21/2018 02/22/2018 02/26/2018 03/20/2018 SITTING SYSTOLIC 132 128 128 162 106 138 SITTING DIASTOLIC 80 82 82 82 78 76 Pleasant obese adult male in no acute distress. Alert and oriented all spheres. Normal affect and cognition though a little anxious. Speech normal. No deficits to learning or comprehension. Skin warm, dry, pink to lips and nailbeds. Normal turgor. Respirations regular and unlabored. HEENT WNL. TM's clear. Nose and oropharynx free from injection or lesion. No cervical lymph nodes. Thyroid non-tender, no masses Chest CTA. HRRR without murmur or gallop. Chest wall non-tender. Extrem: no clubbing, cyanosis, edema. Extremities are warm and pink with prompt capillary refill. ASSESSMENT/PLAN: 1. Unstable angina (HCC) - ICD9: 411.1, ICD10: I20.0 (primary diagnosis) No chest pain since admit. F/u in [address] Bacon. Recommend remain off until - ASPIRIN 81 MG TABLET,DELAYED RELEASE - ISOSORBIDE MONONITRATE ER 60 MG TABLET,EXTENDED RELEASE 24 HR - RANOLAZINE ER 500 MG TABLET,EXTENDED RELEASE,12 HR 2. S/P primary angioplasty with coronary stent - ICD9: V45.82, ICD10: Z95.5 - ASPIRIN 81 MG TABLET,DELAYED RELEASE 3. Obesity, Class II, BMI 35-39.9 - ICD9: 278.00, ICD10: E66.9 Will work on weight. 4. Essential hypertension with goal blood pressure less than 130/80 - ICD9: 401.9, ICD10: I10 - poor control: I think related to recent circumstance, anxiety. Recheck in 2 weeks. - Recommended regular aerobic exercise. - Recommend home blood pressure monitoring, to bring results in on next visit - Goal of BP <130/80 5. MIKE (generalized anxiety disorder) - ICD9: 300.02, ICD10: F41.1 Increase Buspar to 10mg TID, anticipate increase to 15mg TID 6. Tobacco use disorder - ICD9: 305.1, ICD10: F17.200 - Firm discussion. Absolutely must stop: agrees. Chantix, nicotine replacement hasn't worked in past. Trial increase in Buspar. Can manage anxiety with benzo if needed. Doesn't take tizanidine often. - Physiologic and physical aspects of tobacco addiction as well as strategies for quitting were discussed. - Counseling was given focusing on the harmful effects of this addiction especially given the patient's medical condition(s) which will be worsened because of the chemicals in tobacco. 7. CECILY (obstructive sleep apnea) - ICD9: 327.23, ICD10: G47.33 Wearing CPAP routinely 8. Chronic depression - ICD9: 311, ICD10: F32.9 Off Cymbalta: recommended resume. Need caution with stacking meds (tizanidine, Buspar, Zolpidem, Cymbalta, Buspar) F/u in 2 weeks NV BP and 3 months Patient (guardian) expressed understanding of instructions and agrees with plan. Lucia Pandya PA-C Referring Provider: SELF [200] Allergies As of Date: 04/11/2018 Noted Allergy Reaction FLEXERIL (CYCLOBENZAPRINE HCL) 12/20/2012 8 - GI Upset TRAMADOL 12/16/2014 8 - GI Upset VICODIN (HYDROCODONE-ACETAMINOPHE*12/13/2009 8 - GI Upset Date Reviewed: 04/11/2018 Reviewed by: Kerri Ruvalcaba LPN - Fully Assessed Reason for Visit: Hospital Follow Up [177] Cmt: [facility] discharged 04/10/18 for angina Primary Visit Diagnosis:Unstable angina (HCC) [I20.0] Other Visit Diagnoses:S/P primary angioplasty with coronary stent [Z95.5] Obesity, Class II, BMI 35-39.9 [E66.9] Essential hypertension with goal blood pressure less than 130/80 [I10] MIKE (generalized anxiety disorder) [F41.1] Tobacco use disorder [F17.200] CECILY (obstructive sleep apnea) [G47.33] Chronic depression [F32.9] Order(s):fluticasone (FLOVENT) 44 mcg/actuation inhalerInhale 1 Puff as instructed twice daily.Disp: 1 InhalerRfl: 5 busPIRone (BUSPAR) 10 mg tabletTake 0.5 tablets by mouth three times daily. Titrate to 10mg twice a in 2 weeks if tolerating.Disp: 90 tabletRfl: 0 Prescriptions as of 04/11/2018 Sig: ASPIRIN 81 MG TABLET,DELAYED * Take 81 mg by mouth once kristen* ISOSORBIDE MONONITRATE ER 60 * Take 60 mg by mouth once kristen* RANOLAZINE ER 500 MG TABLET,E* Take 500 mg by mouth twice da* BUSPIRONE 10 MG TABLET Take 0.5 tablets by mouth thr* PRAVASTATIN 20 MG TABLET Take 2 tablets by mouth daily* CARVEDILOL 25 MG TABLET TAKE 2 TABLETS BY MOUTH TWICE* LOSARTAN 100 MG-HYDROCHLOROTH* TAKE 1 TABLET BY MOUTH ONCE D* CLOPIDOGREL 75 MG TABLET Take 75 mg by mouth once kristen* NITROGLYCERIN 0.4 MG SUBLINGU* Dissolve 1 tablet under the t* TIZANIDINE 4 MG TABLET Take 1 tablet by mouth every * ZOLPIDEM 10 MG TABLET Take 1 tablet by mouth daily * OMEPRAZOLE 40 MG CAPSULE,BRYNN* Take 1 capsule by mouth once * DULOXETINE 60 MG CAPSULE,BRYNN* TAKE 1 CAPSULE BY MOUTH ONCE * VENTOLIN HFA 90 MCG/ACTUATION* INHALE 2 PUFFS INSTRUCTED * FLUTICASONE 44 MCG/ACTUATION * Inhale 1 Puff as instructed t* CPAP Initiate Auto PAP @ 5/20 cm o* COMPRESSION STOCKING, KNEE HI* Compression to be 20-30 DX:* Problem List As Of Date 04/11/2018 Noted Resolved Dysuria [R30.0] INVALID FOR*04/11/2018 Prostatitis, unspecified [N41.9] INVALID FOR*12/11/2016 TOBACCO USE DISORDER [F17.200] ESOPHAGEAL REFLUX [K21.9] Chronic depression [F32.9] JOINT PAIN-FOREARM [M25.539] INVALID FOR* GANGLION UNSPECIFIED [M67.40] INVALID FOR* HEMORRHOIDS EXTERNAL THROMBOSED [K64.5] INVALID FOR* Abdominal Pain, Unspecified Site [R10.9] Unspecified Essential Hypertension [I10] Abdominal Pain, Epigastric [R10.13] Nausea AND Vomiting [R11.2] Sprain and strain of unspecified site of foot [*INVALID FOR* Pain in limb [M79.609] INVALID FOR* Enthesopathy of ankle and tarsus, unspecified [*INVALID FOR* 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 Hypertension goal BP (blood pressure) < 140/90 * 04/11/2018 Hyperlipidemia [E78.5] Inflamed skin tag [L91.8] INVALID FOR*12/11/2016 CECILY (obstructive sleep apnea) [G47.33] INVALID FOR* More... Left-sided low back pain with left-sided sciati*INVALID FOR* Left buttock pain [M79.1] INVALID FOR* Ischial bursitis of left side [M70.72] INVALID FOR* Gallbladder polyp [K82.4] INVALID FOR* Internal hemorrhoids [K64.8] INVALID FOR* Diverticulosis of large intestine without hemor*INVALID FOR* Hyperplastic colonic polyp [K63.5] INVALID FOR* Difficult intubation [T88.4XXA] INVALID FOR* Difficult airway [T88.4XXA] INVALID FOR* More... Primary osteoarthritis of both hips [M16.0] INVALID FOR* Piriformis syndrome, left [G57.02] INVALID FOR* Trochanteric bursitis of both hips [M70.61, M70*INVALID FOR* Chest pain [R07.9] INVALID FOR*02/22/2018 Priority: A More... SOB (shortness of breath) [R06.02] INVALID FOR*02/22/2018 Priority: B More... Obesity, Class II, BMI 35-39.9 [E66.9] INVALID FOR* S/P primary angioplasty with coronary stent [Z9*INVALID FOR* Coronary artery disease of [place] artery of [place]*INVALID FOR* More... Prescriptions ordered this encounter Disp Refills Start End FLUTICASONE 44 MCG/ACTUATION HFA AER* 1 In* 5 04/11/2018 Route: INHALATION Sig: Inhale 1 Puff as instructed twice daily. BUSPIRONE 10 MG TABLET 90 t* 0 04/11/2018 Route: ORAL Sig: Take 0.5 tablets by mouth three times daily. Titrate to 10mg twice a in 2 weeks if tolerating. Medications Discontinued During This Encounter busPIRone (BUSPAR) 10 mg tablet 90 t* 3 03/26/2018 04/11/2018 Route: ORAL Sig: Take 0.5 tablets by mouth twice daily. Titrate to 10mg twice a in 2 weeks if tolerating. Disc: Reason for discontinue is not on file. Disposition: Return in about 3 months (around 07/12/2018). Follow-up and Disposition History Recorded Encounter Status:Closed by Lucia PANDYA PA-C on 04/11/18 LU Observed: 04/11/2018 Status: COMPLETED Source: [place] 12:[address] [facility] TWIN NEW[facility] ([id number]) 1965 M Date Time Provider Department 04/11/18 Lucia PANDYA) PERCYPWS During your visit today, we recorded the following information about you: Kerri Ruvalcaba LPN 04/11/2018 9:09 AM Signed TRANSITION CARE MANAGEMENT (TCM) INITIAL CONTACT Crew Attendant Outreach Provider Action/FYI: 04/11/18 1st attempt to reach patient but no answer and message left on voicemail to call office back. Patient returned call and will follow up in office today. Initial contact with patient post discharge, spoke to patient. Patient identified by name and . SUMMARY: -Pt discharged from [facility] on 04/10/18. -Admitted for: Unstable angina-primary CAD Do you have a hospital follow up appointment with your PCP? Appointment on Open Access today with Chepe Pandya PA-C. MEDICATIONS: Many patients have questions or concerns about their medications once they are home. Were you prescribed any new medications? If yes, what are those medications? Will discuss at hospital follow up Were you told to hold any medications? If yes, what are those medications? Will discuss at hospital follow up Were any of your medications discontinued? If yes, what are those medications? Will discuss at hospital follow up Do you have any questions about getting or taking your medications? Yes, Will discuss during hospital follow up Your discharge instructions/After visit Summary (AVS) are important in guiding you through the recovery process. Is there anything I might help you understand? Yes, Will discuss at hospital follow up Do you have all the necessary equipment and supplies at home? Yes Medical records from recent hospitalization: At nurse's station Allergies As of Date: 04/11/2018 Noted Allergy Reaction FLEXERIL (CYCLOBENZAPRINE HCL) 12/20/2012 8 - GI Upset TRAMADOL 12/16/2014 8 - GI Upset VICODIN (HYDROCODONE-ACETAMINOPHE*12/13/2009 8 - GI Upset Date Reviewed: 03/20/2018 Reviewed by: Kerri Ruvalcaba LPN - Fully Assessed Reason for Visit: TRANSITION CARE MANAGEMENT (TCM) [Other] Prescriptions as of 04/11/2018 Sig: CPAP Initiate Auto PAP @ 5/20 cm o* BUSPIRONE 10 MG TABLET Take 0.5 tablets by mouth twi* PRAVASTATIN 20 MG TABLET Take 2 tablets by mouth daily* CARVEDILOL 25 MG TABLET TAKE 2 TABLETS BY MOUTH TWICE* LOSARTAN 100 MG-HYDROCHLOROTH* TAKE 1 TABLET BY MOUTH ONCE D* CLOPIDOGREL 75 MG TABLET Take 75 mg by mouth once kristen* NITROGLYCERIN 0.4 MG SUBLINGU* Dissolve 1 tablet under the t* TIZANIDINE 4 MG TABLET Take 1 tablet by mouth every * ZOLPIDEM 10 MG TABLET Take 1 tablet by mouth daily * OMEPRAZOLE 40 MG CAPSULE,BRYNN* Take 1 capsule by mouth once * DULOXETINE 60 MG CAPSULE,BRYNN* TAKE 1 CAPSULE BY MOUTH ONCE * VENTOLIN HFA 90 MCG/ACTUATION* INHALE 2 PUFFS INSTRUCTED * COMPRESSION STOCKING, KNEE HI* Compression to be 20-30 DX:* Problem List As Of Date 04/11/2018 Noted Resolved DYSURIA [R30.0] INVALID FOR* Prostatitis, unspecified [N41.9] INVALID FOR*12/11/2016 TOBACCO USE DISORDER [F17.200] ESOPHAGEAL REFLUX [K21.9] DEPRESSIVE DISORDER NEC [F32.9] JOINT PAIN-FOREARM [M25.539] INVALID FOR* GANGLION UNSPECIFIED [M67.40] INVALID FOR* HEMORRHOIDS EXTERNAL THROMBOSED [K64.5] INVALID FOR* Abdominal Pain, Unspecified Site [R10.9] Unspecified Essential Hypertension [I10] Abdominal Pain, Epigastric [R10.13] Nausea AND Vomiting [R11.2] Sprain and strain of unspecified site of foot [*INVALID FOR* Pain in limb [M79.609] INVALID FOR* Enthesopathy of ankle and tarsus, unspecified [*INVALID FOR* 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 Hypertension goal BP (blood pressure) < 140/90 * Hyperlipidemia [E78.5] Inflamed skin tag [L91.8] INVALID FOR*12/11/2016 Obesity [E66.9] INVALID FOR* CECILY (obstructive sleep apnea) [G47.33] INVALID FOR* Left-sided low back pain with left-sided sciati*INVALID FOR* Left buttock pain [M79.1] INVALID FOR* Ischial bursitis of left side [M70.72] INVALID FOR* Gallbladder polyp [K82.4] INVALID FOR* Internal hemorrhoids [K64.8] INVALID FOR* Diverticulosis of large intestine without hemor*INVALID FOR* Hyperplastic colonic polyp [K63.5] INVALID FOR* Difficult intubation [T88.4XXA] INVALID FOR* Difficult airway [T88.4XXA] INVALID FOR* More... Primary osteoarthritis of both hips [M16.0] INVALID FOR* Piriformis syndrome, left [G57.02] INVALID FOR* Trochanteric bursitis of both hips [M70.61, M70*INVALID FOR* Chest pain [R07.9] INVALID FOR*02/22/2018 Priority: A More... SOB (shortness of breath) [R06.02] INVALID FOR*02/22/2018 Priority: B More... Obesity, Class II, BMI 35-39.9 [E66.9] INVALID FOR* S/P primary angioplasty with coronary stent [Z9*INVALID FOR* Coronary artery disease of [place] artery of mally*INVALID FOR* More... Encounter Status:Closed by KERRI RUVALCABA LPN on 04/11/18 DISCHARGE SUMMARY Observed: 04/10/2018 Status: F Source: [place] 2:36 PM [facility] [place] REPOSITORY [facility] Medical Records Department [address] [place] [id number] Discharge Summary 04/10/18 1001 MR#: [id number] Acct: [id number] Name: TWIN NEWMAN Rep #: [id number] : 1965 53 From: Aisha YAÑEZC PCP: Lucia Panday Status: DIS TRISTIN Y Location: [facility] [id number] <Aisha Vázquez - Last Filed: 04/10/18 10:12> Discharge Date and Diagnosis Date of Admission: 04/09/18 Date of Discharge: 04/10/18 - Primary Discharge Diagnosis Active and Suspected Problems (Last Updated 04/05/18 @ 13:01 by Nasima Orr) 1. Unstable angina pectoris 2. CAD-stable. - Secondary Discharge Diagnosis Chronic Problems (Last Updated 04/05/18 @ 13:01 by Nasima Orr) CAD (coronary artery disease) (Chronic) History of coronary artery stent placement (Chronic 03/06/18) PTCA/SHELBY of the of mid LCX with a 3.0 x 16 Promus Synergy and PTCA/SHELBY of the Proximal RCA recent occlusion with a 3.5 x 38 Promus Synergy 03/06/18 Atherosclerosis of coronary artery of [place] heart without angina pectoris (Chronic) PTCA/SHELBY of the of mid LCX with a 3.0 x 16 Promus Synergy and PTCA/SHELBY of the Proximal RCA recent occlusion with a 3.5 x 38 Promus Synergy 03/06/18 Nicotine dependence (Chronic) Hyperlipidemia (Chronic) Hypertension (Chronic) Hospital Course and Treatment Imaging Results: Diagnostic Data Chest X-Ray 04/09/18 14:25 IMPRESSION: Question minimal bibasilar infiltrates. Electronically Signed: Steven Stanton DO at 14:42 EDT Tel [phone], Service support , Dr. Figueroa- Cardiology Operations: None Procedures: Cardiac catheterization Summary of Care Provided: Patient is a 53-year-old male admitted 04/09/2018 due to chest pain, shortness of breath. His past medical history includes CAD status post PTCA, hypertension, hyperlipidemia, nicotine dependence, hiatal hernia, history of TIA, obesity, anxiety, obstructive sleep apnea. Patient is noncompliant with CPAP. He denies history of COPD although he does have an extensive smoking history and uses an inhaler as needed for wheezing. Current pack per day smoker and states he has no interest in quitting. 1. Unstable angina-recent abnormal stress echocardiogram 04/05/2018. Follows with Dr. Bacon. Dr. Kraft consulted during admission. Originally scheduled for outpatient cardiac catheterization 04/17/2018 however patient continued to have symptoms. Troponin negative. Patient underwent cardiac catheterization which demonstrated patent LCx and RCA stents. He continues to have RCA distal disease. Patient started on Ranexa 500 mg twice daily per cardiology. If he continues to have symptoms with the addition of Ranexa, he may require additional PCI to right PDA/posterior lateral branch of the mid right PDA area. Follow-up with Dr. Bacon in 1 week. 2. CAD-recent PTCA to mid LCx, SHELBY of the mid and proximal RCA March 06, 2018. Continue aspirin, statin, Plavix, Ranexa. 3. Hypertension-stable, continue home regimen including carvedilol, isosorbide, losartan/HCTZ. 4. Hyperlipidemia-continue statin. 5. Nicotine dependence-1 pack per day smoker. Encourage smoking cessation. Patient not interested in quitting smoking. 6. Hiatal hernia 7. History of TIA-continue aspirin, Plavix, statin. 8. Asthma, suspected COPD given extensive smoking history- recommend follow-up with pulmonary medicine for pulmonary function testing at discharge. Albuterol inhaler as needed for shortness of breath/wheezing. Recommend repeat pulmonary function testing as outpatient. 9. Obesity-encourage diet and lifestyle modifications. 10. Anxiety-continue home duloxetine regimen. 11. Obstructive sleep apnea-noncompliant with CPAP. General: Alert, Oriented x3, Cooperative, No apparent distress HEENT: Atraumatic, PERRLA, EOMI, Normocephalic Neck: Supple, No JVD, Negative Carotid Bruits Lungs: Diminished, Wheezes Cardiovascular: Regular rate, Regular Rhythm, Normal S1, Normal S2, No murmurs Abdomen: Bowel Sounds Present, Soft, Non Tender, Non-Distended, Hernia Extremities: No clubbing, No cyanosis, Capillary Refill Less than 3 Seconds, Edema - Nonpitting bilateral lower extremity Skin: No rashes, No breakdown Musculoskeletal: No Tenderness to Palpation of Joints or Extremities Neurological: Cranial nerves II-XII grossly intact, Neuro grossly intact Psych/Mental Status: Normal Affect, Appropriate Patient seen exam prior to discharge. Physical assessment as noted above. Patient denies further chest pain. Stable for discharge home with follow- up with primary care physician and cardiology. This patient was seen by ASHER Roblero under the supervision of Dr. Arias. Discharge Diet: Low fat/ Low Cholesterol Discharge Activity: Return to Normal Activity, - - Follow post-op cath instructions. Call your doctor if your incision/area has: Continuous Slow Oozing, Sudden Increased Bleeding, Increased Pain/ Swelling, Increased Redness, Foul Smelling Discharge, Swelling at the incision site Call your doctor if you observe: Shortness of breath, Dizziness, Fainting spells, Chest pain Home Medications: Medications to take at Discharge Zolpidem Tartrate [Ambien] 10 mg PO QHS PRN PRN 01/08/15 Losartan/Hydrochlorothiazide [Losartan-Hctz 100-25 mg Tab] 1 ea PO DAILY 03/09/17 Albuterol IH (ProAir) [Proair Hfa] 1 - 2 puff INHALATION Q6H PRN PRN 02/20/18 Duloxetine HCl 60 mg PO DAILY 02/20/18 aspirin 81 mg tablet,delayed release 81 mg PO DAILY 03/16/18 carvedilol 25 mg tablet 50 mg PO BID 03/16/18 clopidogrel 75 mg tablet 75 mg PO DAILY 03/16/18 pravastatin 40 mg tablet 40 mg PO DAILY 03/16/18 isosorbide mononitrate ER 60 mg tablet,extended release 24 hr 60 mg PO QDAY #30 tab 04/05/18 Buspirone HCl 10 mg PO BID 04/09/18 Nitroglycerin [Nitrostat] 0.4 mg SUBLINGUAL Q5M PRN 04/09/18 Omeprazole 40 mg PO DAILY 04/09/18 Ranolazine [Ranexa] 500 mg PO BID #60 tab 04/10/18 Following Prescrptions Were Given to Patient: Ranolazine [Ranexa] 500 mg PO BID #60 tab Primary Care Physician: Lucia Pandya PA [Primary Care Provider] - Please follow up with your Primary Care Physician in: 1 Week Please Follow Up With: Misha Bacon MD When: 1 Week Disposition: Home Minutes spent on discharge:: 35 Patient Condition:: Stable Medical Necessity - Tobacco Use Smoking Status: Current every day smoker Tobacco Use: Cigarettes Meaningful Use Info Meaningful Use Diagnoses (Choose all that apply): None applicable <JuanaKiki Rivasa - Last Filed: 04/10/18 14:36> Discharge Date and Diagnosis - Secondary Discharge Diagnosis Chronic Problems (Last Updated 04/05/18 @ 13:01 by Nasima Orr) CAD (coronary artery disease) (Chronic) History of coronary artery stent placement (Chronic 03/06/18) PTCA/SHELBY of the of mid LCX with a 3.0 x 16 Promus Synergy and PTCA/SHELBY of the Proximal RCA recent occlusion with a 3.5 x 38 Promus Synergy 03/06/18 Atherosclerosis of coronary artery of [place] heart without angina pectoris (Chronic) PTCA/SHELBY of the of mid LCX with a 3.0 x 16 Promus Synergy and PTCA/SHELBY of the Proximal RCA recent occlusion with a 3.5 x 38 Promus Synergy 03/06/18 Nicotine dependence (Chronic) Hyperlipidemia (Chronic) Hypertension (Chronic) Hospital Course and Treatment Summary of Care Provided: Patient seen by Aisha STERLING under my supervision. Agree with above note and assessment and plan. Patient is a 53-year-old male was admitted on 04/09/2018 with complaints of chest pain and shortness of breath. He had extensive cardiac history including CAD status post cardiac cath, hypertension, hyperlipidemia, history of TIA, nicotine dependence and hiatal hernia. He is status post a recent stress echocardiogram which was considered abnormal. He had been evaluated by Dr. Bacon for the symptoms above and was scheduled to have a repeat diagnostic cardiac cath and possible PCI in the near future. After presenting to the ED he was evaluated by cardiology. Initial troponin was negative EKG showed sinus rhythm and nonspecific T-wave changes. Decision was made for patient to have urgent cardiac cath today. Cardiac cath showed that his left circumflex and RCA stents were patent and he continued to have an element of RCA distal disease involving the bifurcation of the right PDA right posterior lateral branch and the right PDA mid area. Plan was continue medical management to allow the stents to mature of the patient to follow-up later. No immediate PCI was considered to be warranted by cardiology and he is to have further follow-up to determine further management. Patient was discharged home on 04/10/18 after cardiac cath. He was discharged on aspirin, plavix, statin and ranexa. He is to have follow up with his PCP and cardiology. [] Code Visit Inpatient E AND M: 72727 Disch Hosp 04/10/18 1013 <Electronically signed by Aisha STERLING> Date Aisha STERLING 04/10/18 1436<Electronically signed by Kiki Arias MD> Cosigner Signature (if applicable): Date Kiki Arias MD CC: Lucia Pandya; ASHER Vázquez; Kiki Arias MD Signed DISCHARGE INSTRUCTION Observed: 04/10/2018 Status: F Source: [place] 10:01 AM [facility] REPOSITORY [facility] Medical Records Department [address] [place] [address] Instructions for Home/Discharge Instructions 04/10/18 0958 MR#: [id number] Acct: [id number] Name: TWIN NEWMAN Rep #: [id number] : 1965 53 From: Aisha STERLING PCP: Lucia Pandya Status: ADM TRISTIN - Discharge Diagnoses Current Active Problems: Current Active and Chronic Problems (Last Updated 04/05/18 @ 13:01 by Nasima Orr) Unstable angina pectoris (Acute) CAD (coronary artery disease) (Chronic) You will use the following diet at home:: Cardiac Discharge Activity: Return to Normal Activity, - - Follow post-op cath instructions. Call your doctor if your incision/area has: Continuous Slow Oozing, Sudden Increased Bleeding, Increased Pain/ Swelling, Increased Redness, Foul Smelling Discharge, Swelling at the incision site Call your doctor if you observe: Shortness of breath, Dizziness, Fainting spells, Chest pain Allergies/Adverse Reactions: Allergies acetaminophen [From Vicodin] Adverse Reaction (Verified 02/20/18 21:24) Upset Stomach cyclobenzaprine [From Flexeril] Adverse Reaction (Verified 02/20/18 21:24) Upset Stomach hydrocodone bitartrate [From Vicodin] Adverse Reaction (Verified 02/20/18 21:24) Upset Stomach tramadol Adverse Reaction (Verified 02/20/18 21:24) Upset Stomach Medications to take at Discharge Zolpidem Tartrate [Ambien] 10 mg PO QHS PRN PRN 01/08/15 Losartan/Hydrochlorothiazide [Losartan-Hctz 100-25 mg Tab] 1 ea PO DAILY 03/09/17 Albuterol IH (ProAir) [Proair Hfa] 1 - 2 puff INHALATION Q6H PRN PRN 02/20/18 Duloxetine HCl 60 mg PO DAILY 02/20/18 aspirin 81 mg tablet,delayed release 81 mg PO DAILY 03/16/18 carvedilol 25 mg tablet 50 mg PO BID 03/16/18 clopidogrel 75 mg tablet 75 mg PO DAILY 03/16/18 pravastatin 40 mg tablet 40 mg PO DAILY 03/16/18 isosorbide mononitrate ER 60 mg tablet,extended release 24 hr 60 mg PO QDAY #30 tab 04/05/18 Buspirone HCl 10 mg PO BID 04/09/18 Nitroglycerin [Nitrostat] 0.4 mg SUBLINGUAL Q5M PRN 04/09/18 Omeprazole 40 mg PO DAILY 04/09/18 Ranolazine [Ranexa] 500 mg PO BID #60 tab 04/10/18 The following prescriptions were given: Ranolazine [Ranexa] 500 mg PO BID #60 tab Primary Care Physician: Lucia Pandya PA [Primary Care Provider] - Please follow up with your Primary Care Physician in: 1 Week Test Results: Test results from this visit will be discussed in further detail at your follow-up appointment, if applicable. Please Follow Up With: Misha Bacon MD When: 1 Week Proposed Discharge Date: 04/10/18 04/10/18 1001 <Electronically signed by Aisha STERILNG> Date Aisha STERLING CC: Lucia Pandya; Alex Figueroa MD URINALYSIS, COMPLETE Collected: 04/10/2018 Status: F Source: [place] 6:25 AM [facility] REPOSITORY Order Comment: How was Urine Obtained? BRAID CUTTER TO SPECIFY TYPE CODE TESTS RESULT OUT OF RANGE REFERENCE UNITS LAB L400.3000 Yellow COLOR Normal Yellow LAB L400.3050 Clear Normal CLARITY Clear LAB L400.3200 Normal mg/dl Normal GLUCOSE, UR Normal LAB L400.3300 Negative mg/dL Normal BILIRUBIN URINE Negative LAB L400.3400 Negative mg/dl Normal KETONE UR Negative LAB L400.3465 1.002-1.030 Normal SP.GR. DIPSTX 1.015 LAB L400.3550 5.0 - 8.0 pH UR Normal 6.5 LAB L400.3600 Negative mg/dl PROT Normal DIPSTX Negative LAB L400.3700 Normal mg/dl Normal UROBILI Normal LAB L400.3750 Negative Normal NITRITE UR Negative LAB L400.3780 Negative /ul Normal OCCULT BLOOD-UR Negative LAB L400.3800 Negative /ul LEUK Normal ESTERASE Negative LAB L400.4050 0-5 /hpf WBC 0 Normal SEEN LAB L400.4100 0-5 /hpf 0 Normal RBC-UA SEEN LAB L400.4150 0-5 /hpf SQUAM Normal EPI 0-5 SEEN LAB L400.4300 None Seen /hpf Normal BACTERIA RARE LAB L400.4350 <or=2+ /hpf 0 Normal MUCUS, URINE SEEN Performed By: #### L400.0001 #### [facility] [address] [place], [address] CBC-COMPLETE BLOOD CNT Collected: 04/10/2018 Status: F Source: [place] NO DIFF 4:00 AM [facility] REPOSITORY TYPE CODE TESTS RESULT OUT OF RANGE REFERENCE UNITS LAB L100.1000 4.4-11.0 K/mm3 Normal WBC 5.4 LAB L100.1200 4.6-6.2 M/mm3 Low RBC 4.09 LAB L100.1300 13.0-16.5 g/dl Normal HGB 13.4 LAB L100.1400 40-54 % Normal HCT 40.5 LAB L100.1500 80-94 fL High MCV 99.0 LAB L100.1600 27.0-32.0 pg High MCH 32.8 LAB L100.1700 32-36 g/gl Normal MCHC 33.1 LAB L100.1810 11.6-14.6 % High RDW CV 14.8 LAB L100.1820 35.1-43.9 fl High RDW SD 52.5 LAB L100.1900 150-450 K/mm3 Normal PLT 201 LAB L100.2000 6.2-12.0 fl Normal MPV 9.0 Performed By: #### L100.0500, L500.2500, L300.4310 #### [facility] [address] [place], [place], [id number] BASIC METABOLIC Collected: 04/10/2018 Status: F Source: [place] PROFILE (BMP) 4:00 AM [facility] REPOSITORY TYPE CODE TESTS RESULT OUT OF RANGE REFERENCE UNITS LAB L501.0100 74-106 mg/dL Normal GLU 104 Result Comment: Fasting Glucose result from 100 to 125 mg/dL suggests IMPAIRED HOMEOSTASIS per A.D.A. criteria. Please note revised GLUCOSE reference range effective 2017. LAB L501.1000 7-18 mg/dL High BUN 21 LAB L501.1100 0.70-1.30 mg/dL Normal CREAT,SERUM 1.22 Result Comment: The validity of the calculated GFR AND GFRAA in patients over 70 years has not been determined. Clinical correlation is essential. LAB L501.1110 >60 mL/min Normal EST GFR 66 Result Comment: Non- GFR Calc LAB L501.1115 >60 mL/min Normal EST GFR - AA 80 Result Comment: GFR Calc LAB L501.1255 ml/min Normal Estimated CRCL 65.47 LAB L501.1300 10-20 RATIO Normal BUN/CRE 17.2 LAB L501.2200 8.5-10 mg/dL Normal .1 CA 8.9 LAB L501.5300 136-14 mmol/L Normal 5 NA 142 LAB L501.5600 3.5-5. mmol/L Normal 1 K 3.6 LAB L501.5900 98-107 mmol/L Normal CL 100 LAB L501.6100 21.0-3 mmol/L High 2.0 CO2 34.0 LAB L501.6200 5-15 Normal GAP 8 Performed By: #### L100.0500, L500.2500, L300.4310 #### [facility] [address] [place], [place], [id number] PARTIAL THROMBOPLAST Collected: 04/10/2018 Status: F Source: [place] TIME 4:00 AM [facility] REPOSITORY TYPE CODE TESTS RESULT OUT OF RANGE REFERENCE UNITS LAB L300.4310 24.1-36.2 Seconds Normal PTT 29.1 Performed By: #### L100.0500, L500.2500, L300.4310 #### [facility] [address] [place], [place], [id number] PROTHROMBIN TIME W/INR Collected: 04/10/2018 Status: F Source: [place] 4:00 AM [facility] REPOSITORY TYPE CODE TESTS RESULT OUT OF RANGE REFERENCE UNITS LAB L300.4150 11.7-14.9 SECONDS Normal PROTIME 12.8 LAB L300.4200 Normal INR 1.0 Performed By: #### L300.3900 #### [facility] [address] [place], [address] LIPID PROFILE Collected: 04/10/2018 Status: F Source: [place] 4:00 AM [facility] REPOSITORY TYPE CODE TESTS RESULT OUT OF RANGE REFERENCE UNITS LAB L501.4900 200 mg/dL High CHOL 229 Result Comment: <200 mg/dL Desirable 200-240 mg/dL Borderline >240 mg/dL High Risk LAB L501.5000 mg/dL High TRIG 457 Result Comment: The drugs N-Acetylcysteine and Metamizole may falsely depress this assay. TRIGLYCERIDE IS GREATER THAN 400 mg/dL. LDL RESULT IS INVALID AND WILL NOT BE REPORTED. Serum Triglycerides Reference Interval Normal <150 mg/dL Borderline high 150 - 199 mg/dL High 200 - 499 mg/dL Very High > or = 500 mg/dL LAB L501.6400 mg/dL Low HDL 33 Result Comment: The drugs N-Acetylcysteine and Metamizole may falsely depress this assay. Reference Range HDL <40 mg/dL Low HDL Cholesterol HDL >or= 60 mg/dL High HDL Cholesterol LAB L501.6500 0-130 mg/dL Test Normal not performed LDL LAB L501.6600 5-40 mg/dL Test Normal not performed VLDL Performed By: #### L500.4100 #### [facility] [address] [place], [address] CONSULTATION Observed: 04/09/2018 Status: F Source: [place] 5:55 PM [facility] Medical Records Department [address] [place] [address] Consultation 04/09/18 1739 MR#: [id number] Acct: [id number] Name: TWIN NEWMAN Rep #: [id number] : 1965 53 From: Alex Figueroa MD PCP: Lucia Pandya Status: ADM TRISTIN Y Location: [place] [address] Problem List (1) Unstable angina pectoris Status: Acute (2) CAD (coronary artery disease) Status: Chronic Qualifiers: Coronary Disease-Associated Artery/Lesion type: [place] artery [place] vs. transplanted heart: [place] heart Associated angina: with unstable angina Qualified Code(s): I25.110 - Atherosclerotic heart disease of [place] coronary artery with unstable angina pectoris (3) History of coronary artery stent placement Status: Chronic Comment: PTCA/SHELBY of the of mid LCX with a 3.0 x 16 Promus Synergy and PTCA/SHELBY of the Proximal RCA recent occlusion with a 3.5 x 38 Promus Synergy 03/06/18 (4) Hyperlipidemia Status: Chronic Qualifiers: (5) Hypertension Status: Chronic Qualifiers: Reason for Consult Date of Consultation: 04/09/18 History of Present Illness: The patient is a 53 year old white male with a past cardiovascular history which has included underlying hyperlipidemia, hypertension, premature CAD, status post recent LCx PTCA/SHELBY and RCA PTCA/SHELBY who now presents status post a recent stress echocardiogram (dobutamine), which was considered abnormal, for symptoms concerning for unstable angina pectoris. The patient states that he has been having abdominal central chest discomfort, sharp sided left chest discomfort, and progressive shortness of breath and dyspnea especially with exertion. He also notes that he can have shortness of breath and dyspnea at rest when he attempts to lie supine. He has had waxing and waning lower extremity peripheral pitting edema near the ankle area more so on the right than left. There has been no near syncope or syncope. He states he was evaluated by Misha Bacon MD, for the aforementioned concerns and was recommended to have a future repeat diagnostic cardiac catheterization and possible additional PCI. Based upon his ongoing symptoms he presented to the emergency department. He was subsequently brought into the hospital for further evaluation and care. His initial troponin I level was negative. His ECG demonstrated sinus rhythm with nonspecific T-wave abnormality. [] Past Medical History Allergies/Adverse Reactions: Allergies acetaminophen [From Vicodin] Adverse Reaction (Verified 02/20/18 21:24) Upset Stomach cyclobenzaprine [From Flexeril] Adverse Reaction (Verified 02/20/18 21:24) Upset Stomach hydrocodone bitartrate [From Vicodin] Adverse Reaction (Verified 02/20/18 21:24) Upset Stomach tramadol Adverse Reaction (Verified 02/20/18 21:24) Upset Stomach Home Medications: Ambulatory Orders Medication Instructions Recorded Zolpidem Tartrate [Ambien] 10 mg PO QHS PRN PRN 01/08/15 Losartan/Hydrochlorothiazide 1 ea PO DAILY 03/09/17 [Losartan-Hctz 100-25 mg Tab] Albuterol IH (ProAir) [Proair Hfa] 1 - 2 puff INHALATION Q6H PRN PRN 02/20/18 Past Medical History (Chronic Problems): Chronic Problems (Last Updated 04/05/18 @ 13:01 by Nasima Orr) CAD (coronary artery disease) (Chronic) History of coronary artery stent placement (Chronic 03/06/18) PTCA/SHELBY of the of mid LCX with a 3.0 x 16 Promus Synergy and PTCA/SHELBY of the Proximal RCA recent occlusion with a 3.5 x 38 Promus Synergy 03/06/18 Atherosclerosis of coronary artery of [place] heart without angina pectoris (Chronic) PTCA/SEHLBY of the of mid LCX with a 3.0 x 16 Promus Synergy and PTCA/SHELBY of the Proximal RCA recent occlusion with a 3.5 x 38 Promus Synergy 03/06/18 Nicotine dependence (Chronic) Hyperlipidemia (Chronic) Hypertension (Chronic) Surgical History: angioplasty Psychiatric History: No pertinent psych hx - *Family History Maternal History Items: No pertinent history Paternal History Items: No pertinent history Lives: Spouse/ Significant Other Smoking Status: Current every day smoker Tobacco Use: Cigarettes Alcohol: None Drugs: None Review of Systems - Review of Systems General: Denies: Fever, Night Sweats, Fatigue Cardiovascular: Reports: Chest Discomfort, Chest Discomfort at Rest, Chest Discomfort with Exertion, Shortness of Breath, Shortness of Breath at Rest, Shortness of Breath with Exertion, Orthopnea, Peripheral Edema. Denies: PND, Palpitations, Lightheadedness, Dizziness, Near Syncope, Syncope Respiratory: Reports: Shortness of Breath. Denies: Cough, Sputum Production, Hemoptysis Gastrointestinal: Denies: Hematemesis, Hematochezia, Melena Genitourinary: Denies: Dysuria, Hematuria Skin: Denies: Rash Subjectve: This is a 53-year-old white male who appears to be resting comfortably at the moment in no acute distress. Objective: Vital Signs Temp Pulse Resp BP Pulse Ox 98.3 F 66 14 157/98 H 95 04/09/18 17:07 04/09/18 17:20 04/09/18 17:07 04/09/18 17:07 04/09/18 17:07 Oxygen Delivery Method Room Air Weight: 244 lb Body Mass Index (BMI) 38.2 General: Healthy Appearing, Awake, Alert, Oriented x 3, Cooperative, No Acute Distress HEENT: Atraumatic, Normocephalic, PERRL, EOMI, Sclera Non Icteric Oral: Moist Mucosa Neck: Supple, Good ROM, No JVD Lungs: Clear to auscultation Cardiovascular: Regular Rhythm, Normal S1, Normal S2 Vascular: No Carotid Bruits Abdomen: Bowel Sounds Present, Soft, Non Tender Extremities: Trace RLE Edema Neurological: No Focal Motor or Sensory Deficit Psych/Mental Status: Appropriate, Normal Affect Rhythm: Sinus rhythm EKG: Sinus rhythm; nonspecific T-wave abnormality Stress Test: 04/05/2018: Dobutamine stress echocardiogram: Per the report: Considered abnormal and positive for ischemia by echocardiographic criteria with inferior and posterior hypokinesis at peak infusion with a final LVEF of 55% Cardiac Cath: 03/06/2018: Left ventricle demonstrating hypokinesis of the inferobasilar segment with an estimated LVEF of 45-50%; left main coronary artery normal; LAD with mild luminal irregularities less than 30%; LCx with a mid 75% stenosis; RCA being occluded with the right PDA having mid 70% diffuse stenosis; with collateral flow from the left to the right PCI: 03/06/2018: Successful PTCA/SHELBY of the LCx with a 3.0 16 Promus synergy stent and successful PTCA/SHELBY of the proximal RCA with a 3.5 38 Promus Synergy stent with a comment that the WAX PUMPER was not intervened on due to previous inferior infarct and proximal LV wall motion abnormalities noted on nuclear imaging with an additional comment of possible elective PCI of the PDA patient has recurrent symptoms or evidence of inferior ischemia CXR: Preliminary evaluation: No acute cardiopulmonary disease process appreciated : Assessment/Plan 1. Unstable angina pectoris The patient presents back with symptoms occurring both at rest and with exertion which he states are similar to symptoms he had prior to his recent diagnosis and PCI procedures. His initial cardiac enzymes and ECG demonstrated no acute changes. He is already had a post PCI pharmacologic stress echocardiographic study which is been considered abnormal. At the present time the patient will continue medical management as deemed appropriate. He is being considered for repeat evaluation with diagnostic cardiac catheterization to reassess his coronary/stent status as well as his remaining [place] vessel coronary artery disease. If he has restenosis of his recently placed stents and hopefully he can undergo repeat PCI. If these are patent and he continues to have notation of a small caliber diffusely diseased right PDA, then consideration want to be given by interventional cardiology, whether he is a candidate for an attempt at PCI of such a vessel. The above was discussed with the patient. He was agreeable to this approach. 2. CAD status post PCI The patient has a history of underlying CAD as noted above. Again he is continuing to be monitored. He will continue medical management. He will proceed with further evaluation as described above. 3. Hyperlipidemia The patient will continue risk factor modification and care as deemed appropriate. 4. Hypertension The patient will continue to have his blood pressure monitor. He will continue to have his medications adjusted as needed. Comment: The above was discussed with the patient, the [facility] emergency department staff, and Dr. Peralta of the [facility] hospitalist staff. This note was generated with [employer] dictation software. It may contain incorrect words, spelling, and punctuation that were not noted in checking the note before signing. 04/09/18 9804 <Electronically signed by Alex Figueroa MD> Date Alex Figueroa MD Cosigner Signature (if applicable): Date CC: Lucia Pandya; Misha Bacon MD; Alex Figueroa MD; Vadim Gutierrez MD Signed HISTORY AND PHYSICAL Observed: 04/09/2018 Status: F Source: [place] EXAM 5:22 PM [facility] REPOSITORY [facility] Medical Records Department [address] [place] [address] History and Physical 04/09/18 1401 MR#: [id number] Acct: [id number] Name: TWIN NEWMAN Rep #: [id number] : 1965 53 From: Aisha Vázquez [employer] PCP: Lucia Pandya Status: ADM TRISTIN Y Location: [place] [id number] <Aisha Vázquez - Last Filed: 04/09/18 16:55> Problem List (1) Chest pain Status: Acute (2) Abnormal stress test Status: Acute (3) History of coronary artery stent placement Status: Chronic Comment: PTCA/SHELBY of the of mid LCX with a 3.0 x 16 Promus Synergy and PTCA/SHELBY of the Proximal RCA recent occlusion with a 3.5 x 38 Promus Synergy 03/06/18 (4) Atherosclerosis of coronary artery of [place] heart without angina pectoris Status: Chronic Comment: PTCA/SHELBY of the of mid LCX with a 3.0 x 16 Promus Synergy and PTCA/SHELBY of the Proximal RCA recent occlusion with a 3.5 x 38 Promus Synergy 03/06/18 (5) Nicotine dependence Status: Chronic (6) Hyperlipidemia Status: Chronic (7) Hypertension Status: Chronic History of Present Illness Date of Admission: 04/09/18 Chief Complaint: Chest pain, shortness of breath. The patient is a 53 year old M who presents the emergency room with chest pain which began yesterday. Patient describes chest pain on the left side of his chest, not associated with exertion. Patient describes radiation to his neck bilaterally and associated shortness of breath. Denies dizziness, lightheadedness. Patient states pain feels similar to chest pain prior to recent stent placement. Patient underwent PTCA to mid LCx, SHELBY of the mid and proximal RCA March 06, 2018. He follows with Dr. Bacon as outpatient. Had recent abnormal stress echocardiogram 04/05/2018 and was scheduled for outpatient cardiac catheterization 04/17/2018. His other past medical history includes hypertension, hyperlipidemia, nicotine dependence, hiatal hernia, history of TIA, obesity, anxiety, obstructive sleep apnea. Patient is noncompliant with CPAP. He denies history of COPD although he does have an extensive smoking history and uses an inhaler as needed for wheezing. Current pack per day smoker and states he has no interest in quitting. Past Medical History Past Medical History (Chronic Problems): Chronic Problems (Last Updated 04/05/18 @ 13:01 by Nasima Orr) History of coronary artery stent placement (Chronic 03/06/18) PTCA/SHELBY of the of mid LCX with a 3.0 x 16 Promus Synergy and PTCA/SHELBY of the Proximal RCA recent occlusion with a 3.5 x 38 Promus Synergy 03/06/18 Atherosclerosis of coronary artery of [place] heart without angina pectoris (Chronic) PTCA/SHELBY of the of mid LCX with a 3.0 x 16 Promus Synergy and PTCA/SHELBY of the Proximal RCA recent occlusion with a 3.5 x 38 Promus Synergy 03/06/18 Nicotine dependence (Chronic) Hyperlipidemia (Chronic) Hypertension (Chronic) Medical History: Medical History (Last Updated 04/05/18 @ 13:01 by Nasima Orr) Chest pain (Acute) R07.9 Abnormal stress test (Acute) R94.39 Atherosclerosis of coronary artery of [place] heart without angina pectoris (Acute) I25.10 PTCA/SHELBY of the of mid LCX with a 3.0 x 16 Promus Synergy and PTCA/SHELBY of the Proximal RCA recent occlusion with a 3.5 x 38 Promus Synergy 03/06/18 Nicotine dependence (Chronic) F17.200 Hyperlipidemia (Chronic) E78.5 Hypertension (Chronic) I10 DVT (deep venous thrombosis) I82.409 MGUS (monoclonal gammopathy of unknown significance) D47.2 TIA (transient ischemic attack) G45.9 Allergies acetaminophen [From Vicodin] Adverse Reaction (Verified 02/20/18 21:24) Upset Stomach cyclobenzaprine [From Flexeril] Adverse Reaction (Verified 02/20/18 21:24) Upset Stomach hydrocodone bitartrate [From Vicodin] Adverse Reaction (Verified 02/20/18 21:24) Upset Stomach tramadol Adverse Reaction (Verified 02/20/18 21:24) Upset Stomach Home Medications: Ambulatory Orders Medication Instructions Recorded Zolpidem Tartrate [Ambien] 10 mg PO QHS PRN PRN 01/08/15 Losartan/Hydrochlorothiazide 1 ea PO DAILY 03/09/17 [Losartan-Hctz 100-25 mg Tab] Albuterol IH (ProAir) [Proair Hfa] 1 - 2 puff INHALATION Q6H PRN PRN 02/20/18 Surgical History: Surgical History (Last Reviewed 04/09/18 @ 16:18 by ASHER Roblero) History of coronary artery stent placement (Chronic) Onset Date: 03/06/18 Z95.5 PTCA/SHELBY of the of mid LCX with a 3.0 x 16 Promus Synergy and PTCA/SHELBY of the Proximal RCA recent occlusion with a 3.5 x 38 Promus Synergy 03/06/18 H/O carpal tunnel repair Z98.890 History of arthroscopic knee surgery Z98.890 Hx of cholecystectomy Z90.49 Psychiatric History: No pertinent psych hx Lives: Spouse/ Significant Other Smoking Status: Current every day smoker Tobacco Use: Cigarettes Alcohol: None Drugs: None - *Family History Maternal History Items: No pertinent history Paternal History Items: No pertinent history Review of Systems Constitutional: Denies: Chills, Fever, Weight Change HEENT: Denies: Head Aches, Sinus Congestion, Sinus Drainage Cardiovascular: Reports: Chest Pain Respiratory: Reports: Cough - Chronic, Shortness of Breath - Associated with chest pain Gastrointestinal: Denies: Abdominal Pain, Nausea, Vomiting Genitourinary: Denies: Dysuria Musculoskeletal: Denies: Joint Pain, Joint Tenderness Skin: Denies: Rash, Wounds Neurological: Denies: Numbness, Tingling, Focal weakness Psychiatric: Denies: Anxiety, Depression, Homicidal Ideations, Suicidal Ideations Hematologic/ Lymphatic: Denies: Easy Bruising, Easy Bleeding VTE Information - Inpt Only VTE Present on Admission: No VTE Mechan Device Prophylaxis: None VTE Pharm Prophylaxis ordered?: Yes - Physical Exam General: Alert, Oriented x3, Cooperative, No apparent distress HEENT: Atraumatic, PERRLA, EOMI, Normocephalic Neck: Supple, No JVD, Negative Carotid Bruits Lungs: Diminished, Wheezes Cardiovascular: Regular rate, Regular Rhythm, Normal S1, Normal S2, No murmurs Abdomen: Bowel Sounds Present, Soft, Non Tender, Non-Distended, Hernia Extremities: No clubbing, No cyanosis, Capillary Refill Less than 3 Seconds, Edema - Nonpitting bilateral lower extremity Skin: No rashes, No breakdown Musculoskeletal: No Tenderness to Palpation of Joints or Extremities Neurological: Cranial nerves II-XII grossly intact, Neuro grossly intact Psych/Mental Status: Normal Affect, Appropriate Vital Signs Temp Pulse Resp BP Pulse Ox 98.1 F 74 17 131/86 H 96 04/09/18 12:55 04/09/18 15:04 04/09/18 15:04 04/09/18 15:04 04/09/18 15:04 Oxygen Delivery Method Room Air Weight: 114.532 kg Body Mass Index (BMI) 39.5 Laboratory Tests Past 24 Hrs Assessment/Plan All Active Problems (Last Updated 04/05/18 @ 13:01 by Nasima Orr) Chest pain (Acute) Abnormal stress test (Acute) 1. Chest pain-recent abnormal stress echocardiogram 04/05/2018. Follows with Dr. Bacon. Dr. Kraft on consult. Originally scheduled for outpatient cardiac catheterization 04/17/2018 however patient continued to have symptoms. Repeat EKG with new onset chest pain. Troponin negative 1. Cycle enzymes. N.p.o. after midnight for anticipated cardiac catheterization tomorrow. 2. CAD-recent PTCA to mid LCx, SHELBY of the mid and proximal RCA March 06, 2018. Continue aspirin, statin, Plavix. Cardiology following as noted above. 3. Hypertension-stable, continue home regimen including carvedilol, isosorbide, losartan/HCTZ. 4. Hyperlipidemia-continue statin. 5. Nicotine dependence-1 pack per day smoker. Encourage smoking cessation. Nicotine replacement patch. 6. Hiatal hernia 7. History of TIA-continue aspirin, Plavix, statin. 8. Asthma, suspected COPD given extensive smoking history- recommend follow-up with pulmonary medicine for pulmonary function testing at discharge. Albuterol aerosol as needed for shortness of breath. 9. Obesity-encourage diet and lifestyle modifications. 10. Anxiety-continue home duloxetine regimen. 11. Obstructive sleep apnea-noncompliant with CPAP. DVT prophylaxis-Lovenox subcu. This patient was seen by ASHER Roblero under the supervision of Dr. Peralta. <Samuel Peralta - Last Filed: 04/09/18 17:22> History of Present Illness Seen and examined in the ER and in PCU Patient came to ER with chest pain, left-sided, multiple times since yesterday. As mentioned above he had a recent PCI in mid left circumflex and proximal RCA March 03, 2018 and stress echo on 04/05/2018 which is read as abnormal. Initially, patient was trying to walk out in ED or signed AMA but he was convinced to stay by ER physician Dr. Elizondo and myself [] Past Medical History Medical History: Medical History (Last Updated 04/05/18 @ 13:01 by Nasima Orr) Chest pain (Acute) R07.9 Abnormal stress test (Acute) R94.39 Atherosclerosis of coronary artery of [place] heart without angina pectoris (Acute) I25.10 PTCA/SHELBY of the of mid LCX with a 3.0 x 16 Promus Synergy and PTCA/SHELBY of the Proximal RCA recent occlusion with a 3.5 x 38 Promus Synergy 03/06/18 Nicotine dependence (Chronic) F17.200 Hyperlipidemia (Chronic) E78.5 Hypertension (Chronic) I10 DVT (deep venous thrombosis) I82.409 MGUS (monoclonal gammopathy of unknown significance) D47.2 TIA (transient ischemic attack) G45.9 Allergies acetaminophen [From Vicodin] Adverse Reaction (Verified 02/20/18 21:24) Upset Stomach cyclobenzaprine [From Flexeril] Adverse Reaction (Verified 02/20/18 21:24) Upset Stomach hydrocodone bitartrate [From Vicodin] Adverse Reaction (Verified 02/20/18 21:24) Upset Stomach tramadol Adverse Reaction (Verified 02/20/18 21:24) Upset Stomach Surgical History: Surgical History (Last Reviewed 04/09/18 @ 16:18 by Aisha Vázquez NP-C) History of coronary artery stent placement (Chronic) Onset Date: 03/06/18 Z95.5 PTCA/SHELBY of the of mid LCX with a 3.0 x 16 Promus Synergy and PTCA/SHELBY of the Proximal RCA recent occlusion with a 3.5 x 38 Promus Synergy 03/06/18 H/O carpal tunnel repair Z98.890 History of arthroscopic knee surgery Z98.890 Hx of cholecystectomy Z90.49 - Physical Exam General: Alert, Oriented x3, Cooperative HEENT: Atraumatic, PERRLA, EOMI, Normocephalic Neck: Supple, No JVD, Negative Carotid Bruits Lungs: Clear to auscultation, Normal air movement Cardiovascular: Regular rate, Normal S1, Normal S2, No murmurs Abdomen: Bowel Sounds Present, Soft, Non Tender Extremities: No edema, Capillary Refill Less than 3 Seconds, Edema Skin: No rashes, No breakdown Musculoskeletal: No Tenderness to Palpation of Joints or Extremities Neurological: Cranial nerves II-XII grossly intact Psych/Mental Status: Normal Affect, Appropriate Vital Signs Temp Pulse Resp BP Pulse Ox 98.3 F 70 14 157/98 H 95 04/09/18 17:07 04/09/18 17:07 04/09/18 17:07 04/09/18 17:07 04/09/18 17:07 Oxygen Delivery Method Room Air Weight: 244 lb Body Mass Index (BMI) 38.2 Assessment/Plan This patient was seen in conjunction with Aisha MATIAS. I have independently interviewed and examined the patient and reviewed pertinent history, examination findings, laboratory and plan of management. I have reviewed the note and agree with the documented findings with the few additional points. In brief, patient is admitted for frequent chest pain for last 2 days with no relation to food or exertion, very concerning for unstable angina in view of recent abnormal stress echo. Patient is also chronic a smoker and has wheezing on exam, possible COPD. patient had PFT many years ago but neither he remembers result nor documentation is available. He also has obstructive sleep apnea and has CPAP but probably noncompliant. EKG shows slight ST elevation in V2 to V4 which is new as compared to previous EKG on 03/07/2018 but has old T inversion in inferior leads. I have discussed my assessment with TICKET SALES AGENTAisha and orders have been reviewed. Laboratory Results 04/09/18 13:02: WBC 6.7, RBC 4.31 L, Hgb 14.0, Hct 42.2, MCV 97.9 H, MCH 32.5 H, MCHC 33.2, RDW 14.9 H, RDW Differential 51.8 H, Plt Count 228, MPV 8.9, Immature Gran % (Auto) 0.300, Neut % (Auto) 49.9, Lymph % (Auto) 36.5, Brule % (Auto) 10.3 H, Eos % (Auto) 2.4, Baso % (Auto) 0.6, Absolute Neuts (auto) 3.3, Absolute Lymphs (auto) 2.44, Total Counted Not Reportable 04/09/18 13:02: Sodium 140, Potassium 3.6, Chloride 103, Carbon Dioxide 30.0, Anion Gap 7, BUN 17, Creatinine 1.03, Estim Creat Clear Calc 77.54, Est GFR (MDRD) Af Amer 97, Est GFR (MDRD) Non-Af 80, BUN/Creatinine Ratio 16.5, Glucose 86, Calcium 9.3, Troponin I < 0.015 04/09/18 13:02: PT 12.9, INR 1.0, APTT 27.5 Code Visit OBSV Elana AND M: [id number] Initial observation care L3 04/09/18 1656 <Electronically signed by Aisha YAÑEZC> Date Aisha Vázquez T[employer] SALES AGENT-C 04/09/18 1722<Electronically signed by Samuel Peralta MD> Cosigner Signature: Date (if applicable) Samuel Peralta MD CC: Lucia Pandya; ASHER Vázquez; Samuel Peralta MD Signed EMERGENCY DEPARTMENT Observed: 04/09/2018 Status: F Source: [place] SUMMARY 4:53 PM [facility] REPOSITORY [facility] Medical Records Department [address] [place] [address] Emergency Department Summary 04/09/18 1347 MR#: [id number] Acct: [id number] Name: TWIN NEWMAN Rep #: [id number] : 1965 53 From: Pepper Elizondo MD PCP: Lucia Pandya Status: ADM TRISTIN - ER Visit Summary Date of Service: 04/09/18 Chief Complaint: Chest pain and shortness of breath History of Present Illness: The patient is a 53 M with history of coronary artery disease status post stent placement on March 06 who presents for chest pain since yesterday. Patient has been having intermittent waxing and waning chest pain in the left lower chest and lower substernal region since yesterday. He states this is his typical chest pain that he had along with his prior heart attack. It does not radiate. Pain is currently a 4 out of 10. It is not exacerbated by anything and occurs at rest. Patient is also complaining of shortness of breath with onset prior to arrival. Patient was on his way here to get blood work performed for upcoming cardiac interventions when he began feeling short of breath. He has had a productive cough recently and felt like he was choking on his own saliva, unable to swallow it. He has history of wheezing but no diagnosed asthma, COPD, or CHF. Patient currently on Plavix. Patient is a smoker. Patient states he recently had an echo performed and was told he needs another stent. Procedure is scheduled for April 17. Physical Examination: Vital signs: afebrile, hemodynamically stable, no hypoxia on room air General: well nourished, well developed, in no distress Skin: warm, dry, no rash, no pallor HEENT: normocephalic and atraumatic; PERRL, EOMI, moist mucous membranes Cardiovascular: regular rate and rhythm without murmurs, no peripheral edema, 2+ pulses all distal extremities Respiratory: No increased work of breathing, lungs are clear to auscultation bilaterally, no rales, rhonchi or wheezing, speaking in full sentences, brief episode of feeling short of breath and unable to swallow his own saliva, no apparent respiratory distress during this episode Abdominal: Abdomen is soft, nontender with normoactive bowel sounds, no guarding or rebound, no masses MSK: Moves all extremities, no deformities, normal strength Neuro: Awake and alert, oriented 4. No facial droop, sensation and motor function intact and symmetric Test Results: Abnormal Lab Results Clinical Impression(s) from Imaging Studies Chest X-Ray 04/09/18 14:25 IMPRESSION: Question minimal bibasilar infiltrates. Electronically Signed: Steven Stanton DO at 14:42 EDT Tel [phone], Service support , Emergency Department Course and Treatment: Patient presents for chest pain and then shortness of breath that developed on his way to the emergency department. Chart review shows patient had an echo 4 days ago that shows ischemic changes, and patient states he is scheduled for a cath later this month. Patient was given aspirin and nitro. Because he developed the shortness of breath as well and states he has a history of wheezing due to smoking, he was given a DuoNeb. His respiratory symptoms resolved after the treatment. His chest pain resolved after the nitro. EKG showed sinus rhythm with T- wave inversions in 3 and aVF which were present on his March EKG. Initial troponin negative. Labs otherwise unremarkable. Given that patient has the known coronary artery disease and is having symptoms of chest pain today that were similar to his symptoms when he had 3 stents placed last month, this is concerning for unstable angina. Patient was discussed with Dr. Figueroa and then discussed with Dr. Peralta for admission for further cardiac workup. Patient initially did not want to stay since he states he lives nearby and feels better now. We discussed the risks of him leaving and he opted to be admitted. Treatment Plan: [] Disposition: [] Impression: Unstable angina, history of ACS This note was generated with Fleksy dictation software. It may contain incorrect words, spelling, and punctuation that were not noted in review of the chart prior to signing ED Disposition - Plan for ED Patient: Chief Complaint: Chest Pain What to do if you have Problems For any increased pain, shortness of breath, bleeding, nausea or vomiting, chest pain, or any unexpected problems, contact your Primary Care Provider. Call [facility] ([phone]) or report to the closest Emergency Room. Call 911 if necessary. 04/09/18 1653 <Electronically signed by Pepper Elizondo MD> Date Pepper Elizondo MD Cosigner Signature (If Indicated): Date CC: Lucia Pandya CHEST PA AND LATERAL Observed: 04/09/2018 Status: F Source: [place] 1:47 PM [facility] REPOSITORY [facility] Imaging Services [address] [place] [address] Chest PA and Lateral MR#: [id number] Acct: [id number] Name: TWIN NEWMAN Rep #: [id number] : 1965 M 53 From: Steven Stanton DO PCP: Lucia Pandya Status: REG ER Study: Chest PA and Lateral Date of Exam: 04/09/18 Exam# [id number] Ordering Dr: Pepper Elizondo MD STUDY: X-RAY CHEST REASON FOR EXAM: Male, 53 years old. Chest pain. TECHNIQUE: PA and lateral views of the chest. COMPARISON: CT of the chest, February 20, 2018. FINDINGS: Telemetry wires overlie the chest. The lungs are mildly hyperexpanded. There is vague densities at the lung bases which may be infiltrates or atelectasis. There is no demonstrated pleural abnormality. Normal size heart. Normal mediastinum and susana. Normal visualized pulmonary arteries. Normal visualized aortic arch and descending thoracic aorta. Normal visualized thoracic spine. Normal visualized ribs, clavicles, and shoulders. There is no demonstrated abnormality of the visualized soft tissue structures of the upper abdomen. RAD/Chest PA and Lateral IMPRESSION: Question minimal bibasilar infiltrates. Electronically Signed: Steven Stanton DO at 14:42 EDT Tel [phone], Service support , CC: Lucia Pandya; Pepper Elizondo MD Assembly Adjuster: Signed CBC W/DIFF, AUTOMATED Collected: 04/09/2018 Status: F Source: [place] 1:02 PM [facility] REPOSITORY TYPE CODE TESTS RESULT OUT OF RANGE REFERENCE UNITS LAB L100.1000 4.4-11.0 K/mm3 Normal WBC 6.7 LAB L100.1200 4.6-6.2 M/mm3 Low RBC 4.31 LAB L100.1300 13.0-16.5 g/dl Normal HGB 14.0 LAB L100.1400 40-54 % Normal HCT 42.2 LAB L100.1500 80-94 fL High MCV 97.9 LAB L100.1600 27.0-32.0 pg High MCH 32.5 LAB L100.1700 32-36 g/gl Normal MCHC 33.2 LAB L100.1810 11.6-14.6 % High RDW CV 14.9 LAB L100.1820 35.1-43.9 fl High RDW SD 51.8 LAB L100.1900 150-450 K/mm3 Normal PLT 228 LAB L100.2000 6.2-12.0 fl Normal MPV 8.9 LAB L100.2100 47-70 % Normal NEUT% 49.9 LAB L100.2200 19-41 % Normal LY% 36.5 LAB L100.2300 0-10 % High MONO% 10.3 LAB L100.2400 0-5 % Normal EO% 2.4 LAB L100.2500 0-1 % Normal BASO% 0.6 LAB L100.2550 0.0-0.9 % Normal IM GRAN % 0.300 Result Comment: IG% - Immature Granulocytes (promyelocytes, myelocytes and metamyelocytes) > 1% indicates that a LEFT SHIFT is Present. LAB L100.2620 2.0-7.7 X10 3/uL Normal Absolute Neut 3.3 LAB L100.2720 0.83-4.51 X10 3/ul Normal Absolute Lymph 2.44 Performed By: #### L100.0100 #### [facility] [address] [place] [address], [address] PROTHROMBIN TIME W/INR Collected: 04/09/2018 Status: F Source: [place] 1:02 PM [facility] REPOSITORY TYPE CODE TESTS RESULT OUT OF RANGE REFERENCE UNITS LAB L300.4150 11.7-14.9 SECONDS Normal PROTIME 12.9 LAB L300.4200 Normal INR 1.0 Performed By: #### L300.3900, L300.4310 #### [facility] [address] [place], [address] PARTIAL THROMBOPLAST Collected: 04/09/2018 Status: F Source: [place] TIME 1:02 PM [facility] REPOSITORY TYPE CODE TESTS RESULT OUT OF RANGE REFERENCE UNITS LAB L300.4310 24.1-36.2 Seconds Normal PTT 27.5 Performed By: #### L300.3900, L300.4310 #### [facility] [address] [place], [place], [address] BASIC METABOLIC Collected: 04/09/2018 Status: F Source: [place] PROFILE (BMP) 1:02 PM [facility] REPOSITORY TYPE CODE TESTS RESULT OUT OF RANGE REFERENCE UNITS LAB L501.0100 74-106 mg/dL Normal GLU 86 Result Comment: Please note revised GLUCOSE reference range effective 2017. LAB L501.1000 7-18 mg/dL Normal BUN 17 LAB L501.1100 0.70-1.30 mg/dL Normal CREAT,SERUM 1.03 Result Comment: The validity of the calculated GFR AND GFRAA in patients over 70 years has not been determined. Clinical correlation is essential. LAB L501.1110 >60 mL/min Normal EST GFR 80 Result Comment: Non- GFR Calc LAB L501.1115 >60 mL/min Normal EST GFR - AA 97 Result Comment: GFR Calc LAB L501.1255 ml/min Normal Estimated CRCL 77.54 LAB L501.1300 10-20 RATIO Normal BUN/CRE 16.5 LAB L501.2200 8.5-10 mg/dL Normal .1 CA 9.3 LAB L501.5300 136-14 mmol/L Normal 5 NA 140 LAB L501.5600 3.5-5. mmol/L Normal 1 K 3.6 LAB L501.5900 98-107 mmol/L Normal CL 103 LAB L501.6100 21.0-3 mmol/L Normal 2.0 CO2 30.0 LAB L501.6200 5-15 Normal GAP 7 Performed By: #### L500.2500, L501.4010 #### [facility] [address] [place], [address] TROPONIN-I Collected: 04/09/2018 Status: F Source: [place] 1:02 PM [facility] REPOSITORY TYPE CODE TESTS RESULT OUT OF RANGE REFERENCE UNITS LAB L501.4010 <0.045 ng/mL Normal < 0.015 TROPONIN-I Result Comment: TROPONIN-I EXPECTED VALUES <0.045 Negative 0.045 - 0.590 Consistent with Cardiac Damage > OR = 0.600 Critical Value Not every elevated troponin is indicative of MT. These values should be used with clinical judgement in examining the patient's clinical picture for diagnosis. To establish a diagnosis of MT versus myocardial injury, there must be a demonstrated rise and/or fall in the troponin values, in addition to ischemic symptoms, EKG changes, new regional wall motion abnormality, and/or angiographical evidence. PLEASE NOTE: REFERENCE RANGES EDITED 18 Performed By: #### L500.2500, L501.4010 #### [facility] [address] [place], [address] STRESS TEST ECHO W/ Observed: 04/05/2018 Status: F Source: [place] CONTRAST 1:52 PM [facility] REPOSITORY [facility] Cardiovascular Services [address] [place] [address] Stress Test Echo W/Contrast MR#: [id number] Acct: [id number] Name: TWIN NEWMAN Rep #: [id number] : 1965 53 From: Misha Bacon MD Primary Care: Lucia Pandya Status: REG CLI Ordering Dr: Cachorro Domingo T[employer] SALES AGENT-C Sex: M C Reason For Study: Dyspnea; CAD; Chest Pain Stress Results Protocol: Dobutamine Stress Echo Maximum Predicted HR: 167 bpm Target HR: 142 bpm% Maximum Pre dicted HR: 69 % Heart Stage Duration Rate BPComm ent (mm:ss) (bpm) Baseline 66 155 /92No Chest Pain; Definity 0.6 ML Given Throughout Test DSE 10 MCG 3:57 57 166/90No Chest Pain DSE 20 MCG 3:00 62 166/122No Chest Pain DSE 30 MCG 3:00 63 200/112No Chest Pain DSE 40 No Chest Pain; Atropine 0.25 MG IV at 956; Atropine 0.25 MG IV at MCG 9:05 11 5 [id number]; Atropine 0.25 MG IV at 1000; Atropine 0.25 MG IV at 1002 Recovery 90 152 /78No Chest Pain Stress Duration: 19:02 mm:ss Maximum Stress HR: 115 bpmME TS: 1 Baseline Echocardiogram Findings The estimated ejection fraction is 65 %. Stress Echo Wall motion Data Resting WMIntermediate WMStress WM Resting Wall Motion Wall Motion Stress No regional wall motion Mid-Inferior: Mildly hypokinetic. abnormalities noted. Infero-Basal: Mildly hypokinetic. EKG Data The baseline ECG displays normal sinus rhythm. The patient was titrated from 10 mcg to a maximum of 40 mcg of dobutamine during the stress. The maximum heart rate attained was 115 beats per minute. This was 68% of maximum predicted heart rate. During dobutamine infusion, there were no ST or T wave changes noted to suggest ischemia. Interpretation Summary The estimated ejection fraction is 65 %. Mid-Inferior: Mildly hypokinetic Infero-Basal: Mildly hypokinetic Abnormal, adequate, dobutamine echocardiogram. Positive for ischemia by echocardiographic criteria. The patient developed inferior and posterior hypokinesis at peak infusion. Rare PACs and PVCs noted. Hypertensive blood pressure response to dobutamine. Despite inability to reach target heart rate, the patient had an adequate rate pressure product. No anginal symptoms noted. Final LVEF of 55%. No complications. Patient will be referred for elective PCI of PDA. Ordering Physician: Cachorro Domingo Referring Physician: Misha Bacon Performed By: Marci Domigno, ANAY, RVT 04/05/18 1352 Date Misha Bacon MD CC: Lucia Pandya; POLLY Domingo Date Dictated: 04/05/18 0928 Date Transcribed: 04/05/18 135 Assembly Adjuster: Signed CARDIOLOGY VISIT Observed: 04/03/2018 Status: F Source: [place] REPORT 8:20 AM [facility] REPOSITORY [facility] [address] [place] [address] OFFICE VISIT Date of Service: 03/28/18 MR#: [id number] Acct: [id number] Name: TWIN NEWMAN Rep #: [id number] : 1965 Provider: POLLY Domingo Age/Sex: 53/M [place] [facility] [place] Status: Signed HPI HPI Details: TWIN NEWMAN, is a 53 M who presents to the office today for a cardiovascular outpatient follow-up. He has a history of coronary artery disease status post , PTCA/SHELBY to mid LCx and PTCA/SHELBY to mid and proximal RCA in March 2018, hypertension, hyperlipidemia, TIA, hiatal hernia, anemia, DVT, and tobacco abuse with 1 pack/day. He states having SOB on exertion that his mostly noted when going up steps and with minimal exertion. He states feeling dizziness that occurs randomly and is relieved on its own This lasts for upwards to 30 seconds. He states continual fatigue. He states orthopnea as if he is suffocating. Pt denies arm, jaw, or neck discomfort. He states left upper sided dull chest pain. His exercise tolerance is stable though minimal. Pt denies symptoms of CHF, palpitations, lightheadedness, near syncopal or syncopal episodes. Pt denies edema or claudication issues. Pt. denies PND, fever, chills, blood in urine, blood in stool, or myalgia. He declines cardiac rehab d/t not having the time or money for it. Intake Vital Signs03/28/18 Height 5 ft 7 in 03/28/18 Weight: 243 lb 03/28/18 Body Mass Index (BMI) 38.0 03/28/18 Blood Pressure 140/88 Intake Visit Reasons: S/P PCI Allergies acetaminophen [From Vicodin] Adverse Reaction (Verified 02/20/18 21:24) Upset Stomach cyclobenzaprine [From Flexeril] Adverse Reaction (Verified 02/20/18 21:24) Upset Stomach hydrocodone bitartrate [From Vicodin] Adverse Reaction (Verified 02/20/18 21:24) Upset Stomach tramadol Adverse Reaction (Verified 02/20/18 21:24) Upset Stomach Medications Zolpidem Tartrate [Ambien] 10 mg PO QHS 01/08/15 [History Confirmed 03/16/18] Losartan/Hydrochlorothiazide [Losartan-Hctz 100-25 mg Tab] 1 ea PO DAILY 03/09/17 [History Confirmed 03/16/18] Tizanidine HCl [Zanaflex] 4 mg PO Q8H PRN 03/09/17 [History Confirmed 03/16/18] Albuterol IH (ProAir) [Proair Hfa] 1 - 2 puff INHALATION Q6H PRN PRN 02/20/18 [History Confirmed 03/28/18] Duloxetine HCl [Duloxetine HCl] 60 mg PO DAILY 02/20/18 [History Confirmed 03/16/18] aspirin 81 mg tablet,delayed release 81 mg PO QDAY 03/16/18 [History Confirmed 03/28/18] carvedilol 25 mg tablet 50 mg PO BID 03/16/18 [History Confirmed 03/16/18] clopidogrel 75 mg tablet 75 mg PO QDAY 03/16/18 [History Confirmed 03/16/18] pravastatin 40 mg tablet 40 mg PO QDAY 03/16/18 [History Confirmed 03/16/18] PFSH Medical History Atherosclerosis of coronary artery of [place] heart without angina pectoris (Acute) Nicotine dependence (Chronic) Hyperlipidemia (Chronic) Hypertension (Chronic) DVT (deep venous thrombosis) (Chronic) MGUS (monoclonal gammopathy of unknown significance) (Chronic) TIA (transient ischemic attack) (Chronic) Surgical History History of coronary artery stent placement (Acute 03/06/18) H/O carpal tunnel repair (Chronic) History of arthroscopic knee surgery (Chronic) Hx of cholecystectomy (Chronic) Social History Smoking Status: Current every day smoker ROS Const Const: Positive for fatigue; negative for weakness, body ache, fever(s) or chills ENT ENT: Positive for dizziness Cardio Chest Pain: Yes Palpitations: No Edema: None Muscle aches with walking: None Resp Respiratory: Positive for SOB orthopnea\SOB lying down; negative for SOB with activity, SOB at rest or paroxysmal nocturnal dyspnea GI GI: Negative nausea, black,tarry stools, bright, red blood in stools or vomiting blood/hematemesis : Negative for hematuria or frequent nighttime urination/ nocturia Musc Musc: Negative for muscle aches/ myalgia Skin Skin: Negative non-healing lesions or rash Neuro Neuro: Positive for dizziness; negative for weakness, lightheadedness, near syncope, syncope or orthostatic symptoms Endo Endo: Positive for fatigue Allergy Allergy/Immunology: Negative for rash Cardiology Exam Const Appearance: cooperative, healthy appearing, comfortable and no acute distress Nutritional Appearance: obese Orientation: alert, awake and oriented x3 Head Head: normal to inspection Ears: hearing grossly normal bilaterally Nose: external nose normal Face and Sinus: face symmetric Mouth: oral mucosae normal Eyes General: appearance normal, both eyes and all related structures Eyelids: eyelids normal Neck Neck: no JVD and normal visual inspection Carotids: normal carotid upstroke Chest Chest inspection: normal inspection of the chest and normal respiratory effort; negative cough Auscultation: Bilateral: Clear to Auscultation Cardio Rate: regular rate Rhythm: regular rhythm Heart sounds: S1 normal and S2 normal; negative rub or gallop GI GI: normal to inspection and obese Neuro General: alert, awake, oriented x3 and CN's II-XI intact bilaterally Skin Skin: no rashes or lesions noted Extremities Pulses: Normal: Right Posterior Tibial Pulse, Left Posterior Tibial Pulse, Right Radial Pulse, Left Radial Pulse Lower Extremity Edema: None: Bilateral Psych Psychological: normal affect Supplemental Info Heart catheterization from March 2018 showed double vessel coronary artery disease. Resulted in successful PTCA and drug-eluting stent to mid LCx, mid RCA, and proximal RCA. Ejection fraction was reported of 45 50%. Left main was intra-graphically normal, LAD had mild luminal irregularities less than 30%, LCx with mid 75% stenosis, proximal RCA is occluded, right PDA with mid 70% stenosis, and collateral flow from left to right. It was recommended if patient has recurrent symptoms and/or developes inferior ischemia to consider PCI to right PDA. Assessment AND Plan 1. Atherosclerosis of [place] coronary artery of [place] heart without angina pectoris I25.10 PTCA/SHELBY of the of mid LCX with a 3.0 x 16 Promus Synergy and PTCA/SHELBY of the Proximal RCA recent occlusion with a 3.5 x 38 Promus Synergy 03/06/18 Plan - ASHER Shah Patient declines cardiac rehab. He does exhibit concerning symptoms such as shortness of breath, fatigue, and dull left upper chest pain. His chest pain is not similar to chest pain prior to recent PCI. This will be discussed further with Dr. Bacon regarding further evaluation with a stress test and/or elective PCI. His most recent heart catheterization from March 2018 showed residual 70% mid stenosis of right PDA and collateral flow from left to right. His ejection fraction was reported at 45 50%. 2. History of coronary artery stent placement Z95.5 PTCA/SHELBY of the of mid LCX with a 3.0 x 16 Promus Synergy and PTCA/SHELBY of the Proximal RCA recent occlusion with a 3.5 x 38 Promus Synergy 03/06/18 Plan - ASHER Shah He will continue current plan as outlined above. 3. Essential hypertension I10 Plan - ASHER Shah Patient blood pressure is on the higher end of expected range. He was asked to continue lifestyle modifications including diet and exercise to improve this. If his blood pressure increases or remains elevated a third agent will be needed to better control blood pressure. He was asked to contact office if he notices blood pressure increases. 4. Pure hypercholesterolemia E78.00; E78.0 Plan - ASHER Shah Patient states that he was told to discontinue his statin medication once he initiated Plavix therapy. It is unclear why he would do this. Thus, he was asked to resume his statin medication. 5. Cigarette nicotine dependence without complication F17.210 Plan - ASHER Shah Unfortunately, patient does continue to smoke. He was reminded of the importance of cardiovascular and pulmonary benefits of smoking cessation. He acknowledged understanding of this. We will continue to promote and support port smoking cessation. Plan Detail Additional Comments - ASHER Shah Discussed the above patient with Dr. Bacon, he agrees with the plan of care. Thank you for allowing us to participate in the patients plan of care, if you have any questions please do not hesitate to call. This note was generated using a voice recognition system and there may be incorrect words, spelling or punctuation that were not noted when reviewing the office note prior to saving. Follow Up 6 Months (DJN) Coding Level of Care Code Off vis,est,level 3 Diagnoses Atherosclerosis of [place] coronary artery of [place] heart without angina pectoris I25.10 Coronary Disease-Associated Artery/Lesion type: [place] artery History of coronary artery stent placement Z95.5 Essential hypertension I10 Hypertension type: essential hypertension Pure hypercholesterolemia E78.00; E78.0 Hyperlipidemia type: pure hypercholesterolemia Cigarette nicotine dependence without complication F17.210 Nicotine product type: cigarettes Substance use status: uncomplicated Coding Level of Care Code Off vis,est,level 3 Diagnoses Atherosclerosis of [place] coronary artery of [place] heart without angina pectoris I25.10 Coronary Disease-Associated Artery/Lesion type: [place] artery History of coronary artery stent placement Z95.5 Essential hypertension I10 Hypertension type: essential hypertension Pure hypercholesterolemia E78.00; E78.0 Hyperlipidemia type: pure hypercholesterolemia Cigarette nicotine dependence without complication F17.210 Nicotine product type: cigarettes Substance use status: uncomplicated 03/28/18 1635 <Electronically signed by Cachorro Domingo TICKET SALES AGENT-C> Date Cachorro Domingo TICKET SALES AGENT-C 04/03/18 0820<Electronically signed by Misha Bacon MD> Cosigner Signature: Date (if applicable) Misha Bacon MD CC: Vadim Gutierrez MD DOWNTIME REPORT Observed: 03/20/2018 Status: F Source: [place] 2:05 PM [facility] [place] REPOSITORY [facility] Medical Records Department [address] [place] [id number] Downtime Report MR#: [id number] Acct: [id number] Name: TWIN NEWMAN Rep #: [id number] : 1965 53 From: Sheldon Bowden MD PCP: Vadim Gutierrez MD Status: [facility] This patient was seen during an EMR downtime March 04, 2018 - March 11, 2018. This patient may have a combination of paper and electronic documentation or all paper documentation. All documentation is viewable within the e-chart portion of [facility] for each patient visit. PROGRESS Observed: 03/20/2018 Status: COMPLETED Source: [place] 12:25 PM [facility] REPOSITORY HNO ID: [id number] Author: Lucia Pond (August) Mumtaz Service: (none) Author Type: Physician Metal Flow Coordinator Type: Progress Notes Filed: 03/20/2018 5:51 PM Note Text: 53 year old male with c/o here for follow up from heart cath. Went originally to [facility] ED with C/o SOB progressive 2 days worsening with mid sternal chest pain radiating to neck and a left arm. [place] like standing on head with pressur ein neck. Went to [facility]: told breathed bad air. Discharged without any significant work up. Next day at work became weak, sweaty with chest and arm pain: went to [place] ED. Kept overnight. Evaluated for chest pain, MT ruled out. Nuclear stress test completed, intermediate risk with fixed area of ischemia. 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 Dose of pravastatin increased upon discharge. Xanax prescribed as needed for 7 days for personal stress. Referred to Dr. Larry Knight. On both days prior to heart cath he had chest pain alleviated with single NTG SL doses. Continued SOB with exertion. Had heart cath with baloon angioplasty and stents placed On 03/06/18. Mid LCX was 75%, mid and distal RCA total occlusion with robust collaterals. Discharged on Plavix. Instructed to stop smoking. Started plavix. Thinks he was told to hold omeprazole to to complication with plavix but there are no instructions on records. Has had no chest pain since procedure. Still exertional SOB. Worried as next option open heart surgery. HISTORIES FAMILY HISTORY Problem Relation Age of Onset - Cancer Mother kidney - Cancer Father brain - Cancer Brother testicle - Cancer Sister non hodgkins lymphoma PAST MEDICAL HISTORY Diagnosis Date - Abdominal pain, epigastric - Abdominal pain, unspecified site - Anemia - Depressive disorder, not elsewhere classified - Difficult airway 02/05/2017 could not intubate could not ventilate - Difficult intubation 02/05/2017 - DVT (deep venous thrombosis) (HCC) 11/27/12 of right calf - Esophageal reflux - Gallbladder polyp - Hyperlipidemia 2011 - Hypertension - Insomnia - MGUS (monoclonal gammopathy of unknown significance) - Nausea AND vomiting - CECILY (obstructive sleep apnea) 01/25/2015 - Snoring - Stroke (HCC) - Tobacco use disorder - Transient ischemic attack (TIA) - Unspecified essential hypertension PAST SURGICAL HISTORY Procedure Laterality Date - CARPAL TUNNEL Bilateral 2015 - CHOLECYSTECTOMY 04/02/2017 laparoscopic cholecystectomy with cholangiograms R Cebul - COLONOSCOP W/ OR W/O [facility] SPEC Colonoscopy - COLONOSCOPY 01/02/2017 - [facility] W/BX 04/04/07 - EGD W/O OR W/BRUSH/WASH 01/03/2013 EGD - G-ESOPH REFLX TST W/ELECTROD 04/04/07 - PAST SURGICAL HISTORY OF excision lymph node - PAST SURGICAL HISTORY OF vasectomy - PAST SURGICAL HISTORY OF 2010 left knee surgery - PAST SURGICAL HISTORY OF 2012 right foot surgery - PAST SURGICAL HISTORY OF Left 2016 knee surgery, fillers used Social History Marital status: Spouse name: Years of education: Number of children: 1 Occupational History Occupation Employer Comment [employer] Social History Main Topics Smoking status: Current Every Day Smoker Packs/day: 0.50 Years: 30.00 Types: Cigarettes Start date: 12/21/1986 Smokeless tobacco: Never Used Alcohol use: No Drug use: No Sexual activity: Yes Partners with: Female control/protection: Surgical ACTIVE PROBLEM LIST Dysuria Tobacco Use Disorder Esophageal Reflux Depressive Disorder, Not Elsewhere Classified Pain in Joint, Forearm GANGLION UNSPECIFIED HEMORRHOIDS EXTERNAL THROMBOSED Abdominal Pain, Unspecified Site Unspecified Essential Hypertension Abdominal Pain, Epigastric Nausea AND Vomiting Sprain of Foot, Unspecified Site Pain in Limb Enthesopathy of Ankle and Tarsus, Unspecified Herpes Sinus Tarsi Syndrome Dvt, Lower Extremity, Distal (Hcc) Anemia Pigmented Purpuric Dermatosis Hypertension Goal Bp (Blood Pressure) < 140/90 Hyperlipidemia Obesity Cecily (Obstructive Sleep Apnea) Left-Sided Low Back Pain With Left-Sided Sciatica Left Buttock Pain Ischial Bursitis of Left Side Gallbladder Polyp Internal Hemorrhoids Diverticulosis of Large Intestine Without Hemorrhage Hyperplastic Colonic Polyp Difficult Intubation Difficult Airway Primary Osteoarthritis of Both Hips Piriformis Syndrome, Left Trochanteric Bursitis of Both Hips Obesity, Class II, Bmi 35-39.9 Current Outpatient Prescriptions: clopidogrel (PLAVIX) 75 mg tablet Take 75 mg by mouth once daily. Disp: Rfl: nitroglycerin sublingual (NITROQUICK) 0.4 mg SL tablet Dissolve 1 tablet under the tongue every 5 minutes as needed for Chest Pain. Disp: 1 Bottle of 25 Rfl: 1 busPIRone (BUSPAR) 10 mg tablet Take 0.5 tablets by mouth twice daily. Titrate to 10mg twice a in 2 weeks if tolerating. Disp: 30 tablet Rfl: 1 pravastatin (PRAVACHOL) 20 mg tablet Take 2 tablets by mouth daily at bedtime. Disp: 30 tablet Rfl: 2 diclofenac, EC, (VOLTAREN) 75 mg EC tablet Disp: Rfl: tiZANidine (ZANAFLEX) 4 mg tablet Take 1 tablet by mouth every 8 hours as needed (muscle spasms). Disp: 30 tablet Rfl: 3 zolpidem (AMBIEN) 10 mg tab Take 1 tablet by mouth daily at bedtime for 90 days. Disp: 30 tablet Rfl: 2 losartan-hydrochlorothiazide (HYZAAR) 100-25 mg per tablet TAKE 1 TABLET BY MOUTH ONCE DAILY. Disp: 90 tablet Rfl: 1 Omeprazole (PRILOSEC) 40 mg capsule Take 1 capsule by mouth once daily. Disp: 90 capsule Rfl: 1 DULoxetine (CYMBALTA) 60 mg capsule TAKE 1 CAPSULE BY MOUTH ONCE DAILY. Disp: 90 capsule Rfl: 3 VENTOLIN HFA 90 mcg/actuation inhaler INHALE 2 PUFFS INSTRUCTED EVERY 6 HOURS NEEDED FOR WHEEZING/SHORTNESS OF BREATH. Disp: 18 Inhaler Rfl: 2 carvedilol (COREG) 25 mg tablet TAKE 2 TABLETS BY MOUTH TWICE DAILY. Disp: 360 tablet Rfl: 3 Comp Stocking,Knee,Regular,Sml (T.E.D. KNEE [id number]) misc Compression to be 20-30 DX: venous insufficiency Disp: 2 Each Rfl: 6 CPAP Initiate Auto PAP @ 5/20 cm of water with humidification. Mask (per patient preference) optional chin strap (if indicated) , filters, tubing, humidifier and lifetime supplies. Please fax downloads to [phone]. Disp: 1 Device Rfl: 0 No current facility-administered medications for this visit. ZOSTER VACCINE (SHINGRIX)(1 of 2) due on 2015 EXAM: BP 136/90 Pulse 68 Temp 36.5 ?C (97.7 ?F) (Tympanic) Resp 20 Wt 109.3 kg (241 lb) SpO2 96% BMI 37.75 kg/m? Pleasant overweight adult man in no acute distress. Alert and oriented all spheres. Normal affect and cognition. Speech normal. No deficits to learning or comprehension. Skin warm, dry, pink to lips and nailbeds. Normal turgor. Respirations regular and unlabored. HEENT WNL. TM's clear. Nose and oropharynx free from injection or lesion. No cervical lymph nodes. Thyroid non-tender, no masses Chest CTA. HRRR without murmur or gallop. Extrem: no clubbing, cyanosis, edema. Extremities are warm and pink with prompt capillary refill. ASSESSMENT/PLAN: 1. S/P primary angioplasty with coronary stent - ICD9: V45.82, ICD10: Z95.5 (primary diagnosis) Has follow up with Dr. Bacon cardiology tomorrow 2. SOB (shortness of breath) - ICD9: 786.05, ICD10: R06.02 Worrisome for anginal equivalent 3. Tobacco dependence - ICD9: 305.1, ICD10: F17.200 - Cessation encouraged. - Physiologic and physical aspects of tobacco addiction as well as strategies for quitting were discussed. - Counseling was given focusing on the harmful effects of this addiction especially given the patient's medical condition(s) which will be worsened because of the chemicals in tobacco. F/u 3 months prn Lucia Pandya PA-C CNOV Observed: 03/20/2018 Status: COMPLETED Source: [place] 11:[address] [facility] REPOSITORY [facility] TWIN NEWMAN ([id number]) 1965 M Date Time Provider Department 03/20/18 11:40 AM [facility] During [facility] visit today, we recorded the following information about you: Temperature Pulse Respiration Blood pressure 97.7 degrees 68/minute 20/minute 138/76 Weight 109.3 kg M Anibal Pandya PA-C 03/20/2018 5:51 PM Signed 53 year old male with c/o here for follow up from heart cath. Went originally to [facility] ED with C/o SOB progressive 2 days worsening with mid sternal chest pain radiating to neck and a left arm. [place] like standing on head with pressur ein neck. Went to [facility]: told breathed bad air. Discharged without any significant work up. Next day at work became weak, sweaty with chest and arm pain: went to [facility] ED. Kept overnight. Evaluated for chest pain, MT ruled out. Nuclear stress test completed, intermediate risk with fixed area of ischemia. 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 Dose of pravastatin increased upon discharge. Xanax prescribed as needed for 7 days for personal stress. Referred to Dr. Larry Knight. On both days prior to heart cath he had chest pain alleviated with single NTG SL doses. Continued SOB with exertion. Had heart cath with baloon angioplasty and stents placed On 03/06/18. Mid LCX was 75%, mid and distal RCA total occlusion with robust collaterals. Discharged on Plavix. Instructed to stop smoking. Started plavix. Thinks he was told to hold omeprazole to to complication with plavix but there are no instructions on records. Has had no chest pain since procedure. Still exertional SOB. Worried as next option open heart surgery. HISTORIES FAMILY HISTORY Problem Relation Age of Onset - Cancer Mother kidney - Cancer Father brain - Cancer Brother testicle - Cancer Sister non hodgkins lymphoma PAST MEDICAL HISTORY Diagnosis Date - Abdominal pain, epigastric - Abdominal pain, unspecified site - Anemia - Depressive disorder, not elsewhere classified - Difficult airway 02/05/2017 could not intubate could not ventilate - Difficult intubation 02/05/2017 - DVT (deep venous thrombosis) (HCC) 11/27/12 of right calf - Esophageal reflux - Gallbladder polyp - Hyperlipidemia 2011 - Hypertension - Insomnia - MGUS (monoclonal gammopathy of unknown significance) - Nausea AND vomiting - CECILY (obstructive sleep apnea) 01/25/2015 - Snoring - Stroke (HCC) - Tobacco use disorder - Transient ischemic attack (TIA) - Unspecified essential hypertension PAST SURGICAL HISTORY Procedure Laterality Date - CARPAL TUNNEL Bilateral 2015 - CHOLECYSTECTOMY 04/02/2017 laparoscopic cholecystectomy with cholangiograms R Cebul - COLONOSCOP W/ OR W/O [facility] SPEC Colonoscopy - COLONOSCOPY 01/02/2017 - EGD W/O [facility] SPECIMEN W/BX 04/04/07 - EGD W/O OR W/BRUSH/WASH 01/03/2013 EGD - G-ESOPH REFLX TST W/ELECTROD 04/04/07 - PAST SURGICAL HISTORY OF excision lymph node - PAST SURGICAL HISTORY OF vasectomy - PAST SURGICAL HISTORY OF 2009 left knee surgery - PAST SURGICAL HISTORY OF 2011 right foot surgery - PAST SURGICAL HISTORY OF Left 2016 knee surgery, fillers used Social History Marital status: Spouse name: Years of education: Number of children: 1 Occupational History Occupation [employer]er [employer] Social History Main Topics Smoking status: Current Every Day Smoker Packs/day: 0.50 Years: 30.00 Types: Cigarettes Start date: 12/21/1986 Smokeless tobacco: Never Used Alcohol use: No Drug use: No Sexual activity: Yes Partners with: Female control/protection: Surgical ACTIVE PROBLEM LIST Dysuria Tobacco Use Disorder Esophageal Reflux Depressive Disorder, Not Elsewhere Classified Pain in Joint, Forearm GANGLION UNSPECIFIED HEMORRHOIDS EXTERNAL THROMBOSED Abdominal Pain, Unspecified Site Unspecified Essential Hypertension Abdominal Pain, Epigastric Nausea AND Vomiting Sprain of Foot, Unspecified Site Pain in Limb Enthesopathy of Ankle and Tarsus, Unspecified Herpes Sinus Tarsi Syndrome Dvt, Lower Extremity, Distal (Hcc) Anemia Pigmented Purpuric Dermatosis Hypertension Goal Bp (Blood Pressure) < 140/90 Hyperlipidemia Obesity Cecily (Obstructive Sleep Apnea) Left-Sided Low Back Pain With Left-Sided Sciatica Left Buttock Pain Ischial Bursitis of Left Side Gallbladder Polyp Internal Hemorrhoids Diverticulosis of Large Intestine Without Hemorrhage Hyperplastic Colonic Polyp Difficult Intubation Difficult Airway Primary Osteoarthritis of Both Hips Piriformis Syndrome, Left Trochanteric Bursitis of Both Hips Obesity, Class II, Bmi 35-39.9 Current Outpatient Prescriptions: clopidogrel (PLAVIX) 75 mg tablet Take 75 mg by mouth once daily. Disp: Rfl: nitroglycerin sublingual (NITROQUICK) 0.4 mg SL tablet Dissolve 1 tablet under the tongue every 5 minutes as needed for Chest Pain. Disp: 1 Bottle of 25 Rfl: 1 busPIRone (BUSPAR) 10 mg tablet Take 0.5 tablets by mouth twice daily. Titrate to 10mg twice a in 2 weeks if tolerating. Disp: 30 tablet Rfl: 1 pravastatin (PRAVACHOL) 20 mg tablet Take 2 tablets by mouth daily at bedtime. Disp: 30 tablet Rfl: 2 diclofenac, EC, (VOLTAREN) 75 mg EC tablet Disp: Rfl: tiZANidine (ZANAFLEX) 4 mg tablet Take 1 tablet by mouth every 8 hours as needed (muscle spasms). Disp: 30 tablet Rfl: 3 zolpidem (AMBIEN) 10 mg tab Take 1 tablet by mouth daily at bedtime for 90 days. Disp: 30 tablet Rfl: 2 losartan-hydrochlorothiazide (HYZAAR) 100-25 mg per tablet TAKE 1 TABLET BY MOUTH ONCE DAILY. Disp: 90 tablet Rfl: 1 Omeprazole (PRILOSEC) 40 mg capsule Take 1 capsule by mouth once daily. Disp: 90 capsule Rfl: 1 DULoxetine (CYMBALTA) 60 mg capsule TAKE 1 CAPSULE BY MOUTH ONCE DAILY. Disp: 90 capsule Rfl: 3 VENTOLIN HFA 90 mcg/actuation inhaler INHALE 2 PUFFS INSTRUCTED EVERY 6 HOURS NEEDED FOR WHEEZING/SHORTNESS OF BREATH. Disp: 18 Inhaler Rfl: 2 carvedilol (COREG) 25 mg tablet TAKE 2 TABLETS BY MOUTH TWICE DAILY. Disp: 360 tablet Rfl: 3 Comp Stocking,Knee,Regular,Sml (T.E.D. KNEE [id number]) misc Compression to be 20-30 DX: venous insufficiency Disp: 2 Each Rfl: 6 CPAP Initiate Auto PAP @ 5/20 cm of water with humidification. Mask (per patient preference) optional chin strap (if indicated) , filters, tubing, humidifier and lifetime supplies. Please fax downloads to [phone]. Disp: 1 Device Rfl: 0 No current facility-administered medications for this visit. ZOSTER VACCINE (SHINGRIX)(1 of 2) due on 2015 EXAM: BP 136/90 Pulse 68 Temp 36.5 ?C (97.7 ?F) (Tympanic) Resp 20 Wt 109.3 kg (241 lb) SpO2 96% BMI 37.75 kg/m? Pleasant overweight adult man in no acute distress. Alert and oriented all spheres. Normal affect and cognition. Speech normal. No deficits to learning or comprehension. Skin warm, dry, pink to lips and nailbeds. Normal turgor. Respirations regular and unlabored. HEENT WNL. TM's clear. Nose and oropharynx free from injection or lesion. No cervical lymph nodes. Thyroid non-tender, no masses Chest CTA. HRRR without murmur or gallop. Extrem: no clubbing, cyanosis, edema. Extremities are warm and pink with prompt capillary refill. ASSESSMENT/PLAN: 1. S/P primary angioplasty with coronary stent - ICD9: V45.82, ICD10: Z95.5 (primary diagnosis) Has follow up with Dr. Bacon cardiology tomorrow 2. SOB (shortness of breath) - ICD9: 786.05, ICD10: R06.02 Worrisome for anginal equivalent 3. Tobacco dependence - ICD9: 305.1, ICD10: F17.200 - Cessation encouraged. - Physiologic and physical aspects of tobacco addiction as well as strategies for quitting were discussed. - Counseling was given focusing on the harmful effects of this addiction especially given the patient's medical condition(s) which will be worsened because of the chemicals in tobacco. F/u 3 months prn M Anibal Pandya PA-C Referring Provider: SELF [[id number]] Allergies As of Date: 03/20/2018 Noted Allergy Reaction FLEXERIL (CYCLOBENZAPRINE HCL) 12/20/2012 8 - GI Upset TRAMADOL 12/16/2014 8 - GI Upset VICODIN (HYDROCODONE-ACETAMINOPHE*12/13/2009 8 - GI Upset Date Reviewed: 03/20/2018 Reviewed by: Kerri Ruvalcaba LPN - Fully Assessed Reason for Visit: Hospital F/U [57] Cmt: [facility] 03/07/18 for heart attack. # stents placed and started on plavix. disablity placcard [Other] Cmt: continues to be short of breath and requesting handicapped placard Primary Visit Diagnosis:S/P primary angioplasty with coronary stent [Z95.5] Other Visit Diagnoses:SOB (shortness of breath) [R06.02] Tobacco dependence [F17.200] Prescriptions as of 03/20/2018 Sig: CLOPIDOGREL 75 MG TABLET Take 75 mg by mouth once kristen* NITROGLYCERIN 0.4 MG SUBLINGU* Dissolve 1 tablet under the t* BUSPIRONE 10 MG TABLET Take 0.5 tablets by mouth twi* PRAVASTATIN 20 MG TABLET Take 2 tablets by mouth daily* TIZANIDINE 4 MG TABLET Take 1 tablet by mouth every * ZOLPIDEM 10 MG TABLET Take 1 tablet by mouth daily * LOSARTAN 100 MG-HYDROCHLOROTH* TAKE 1 TABLET BY MOUTH ONCE D* OMEPRAZOLE 40 MG CAPSULE,BRYNN* Take 1 capsule by mouth once * DULOXETINE 60 MG CAPSULE,BRYNN* TAKE 1 CAPSULE BY MOUTH ONCE * VENTOLIN HFA 90 MCG/ACTUATION* INHALE 2 PUFFS INSTRUCTED * CARVEDILOL 25 MG TABLET TAKE 2 TABLETS BY MOUTH TWICE* COMPRESSION STOCKING, KNEE HI* Compression to be 20-30 DX:* CPAP Initiate Auto PAP @ 5/20 cm o* Problem List As Of Date 03/20/2018 Noted Resolved DYSURIA [R30.0] INVALID FOR* Prostatitis, unspecified [N41.9] INVALID FOR*12/11/2016 TOBACCO USE DISORDER [F17.200] ESOPHAGEAL REFLUX [K21.9] DEPRESSIVE DISORDER NEC [F32.9] JOINT PAIN-FOREARM [M25.539] INVALID FOR* GANGLION UNSPECIFIED [M67.40] INVALID FOR* HEMORRHOIDS EXTERNAL THROMBOSED [K64.5] INVALID FOR* Abdominal Pain, Unspecified Site [R10.9] Unspecified Essential Hypertension [I10] Abdominal Pain, Epigastric [R10.13] Nausea AND Vomiting [R11.2] Sprain and strain of unspecified site of foot [*INVALID FOR* Pain in limb [M79.609] INVALID FOR* Enthesopathy of ankle and tarsus, unspecified [*INVALID FOR* 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 Hypertension goal BP (blood pressure) < 140/90 * Hyperlipidemia [E78.5] Inflamed skin tag [L91.8] INVALID FOR*12/11/2016 Obesity [E66.9] INVALID FOR* CECILY (obstructive sleep apnea) [G47.33] INVALID FOR* Left-sided low back pain with left-sided sciati*INVALID FOR* Left buttock pain [M79.1] INVALID FOR* Ischial bursitis of left side [M70.72] INVALID FOR* Gallbladder polyp [K82.4] INVALID FOR* Internal hemorrhoids [K64.8] INVALID FOR* Diverticulosis of large intestine without hemor*INVALID FOR* Hyperplastic colonic polyp [K63.5] INVALID FOR* Difficult intubation [T88.4XXA] INVALID FOR* Difficult airway [T88.4XXA] INVALID FOR* More... Primary osteoarthritis of both hips [M16.0] INVALID FOR* Piriformis syndrome, left [G57.02] INVALID FOR* Trochanteric bursitis of both hips [M70.61, M70*INVALID FOR* Chest pain [R07.9] INVALID FOR*02/22/2018 Priority: A More... SOB (shortness of breath) [R06.02] INVALID FOR*02/22/2018 Priority: B More... Obesity, Class II, BMI 35-39.9 [E66.9] INVALID FOR* S/P primary angioplasty with coronary stent [Z9*INVALID FOR* Medications Discontinued During This Encounter diclofenac, EC, (VOLTAREN) 75 mg EC * 02/19/2018 03/20/2018 Class: Historical Med Sig: Disc: Reason for discontinue is not on file. Disposition: Return in about 3 months (around 06/20/2018). Follow-up and Disposition History Recorded Letter Text [facility] [address] [address] 03/20/2018 THIS IS A PRESCRIPTION FOR HANDICAPPED PARKING PERMIT Re: Twin Newman [address] [facility] [address] The above named person requires a disability parking placard. DURATION: 1 year EXPIRATION: DATE + 1 YEARS Sincerely, Lucia Pandya PA-C Encounter Status:Closed by Lucia PANDYA PA-C on 03/20/18 PROGRESS Observed: 03/19/2018 Status: COMPLETED Source: [place] 9:[address] [facility] REPOSITORY HNO ID: [id number] Author: Lucia Pandya Service: (none) Author Type: Physician Metal Flow Coordinator Type: Progress Notes Filed: 03/19/2018 9:41 PM Note Text: Left without being seen CNOV Observed: 03/19/2018 Status: COMPLETED Source: [place] 12:[address] [facility] REPOSITORY Office Visit (FAMPWS) TWIN NEWMAN ([id number]) 1965 M Date Time Provider Department 03/19/18 12:40 PM Lucia [facility]AND[facility] During your visit today, we recorded the following information about you: Lucia Pandya PA-C 03/19/2018 9:41 PM Signed Left without being seen Referring Provider: SELF [[id number]] Allergies As of Date: 03/19/2018 Noted Allergy Reaction FLEXERIL (CYCLOBENZAPRINE HCL) 12/20/2012 8 - GI Upset TRAMADOL 12/16/2014 8 - GI Upset VICODIN (HYDROCODONE-ACETAMINOPHE*12/13/2009 8 - GI Upset Date Reviewed: 02/26/2018 Reviewed by: Kerri Ruvalcaba LPN - Fully Assessed Primary Visit Diagnosis:APPOINTMENT CANCELLED Prescriptions as of 03/19/2018 Sig: NITROGLYCERIN 0.4 MG SUBLINGU* Dissolve 1 tablet under the t* BUSPIRONE 10 MG TABLET Take 0.5 tablets by mouth twi* PRAVASTATIN 20 MG TABLET Take 2 tablets by mouth daily* DICLOFENAC SODIUM 75 MG TABLE* TIZANIDINE 4 MG TABLET Take 1 tablet by mouth every * ZOLPIDEM 10 MG TABLET Take 1 tablet by mouth daily * LOSARTAN 100 MG-HYDROCHLOROTH* TAKE 1 TABLET BY MOUTH ONCE D* OMEPRAZOLE 40 MG CAPSULE,BRYNN* Take 1 capsule by mouth once * DULOXETINE 60 MG CAPSULE,BRYNN* TAKE 1 CAPSULE BY MOUTH ONCE * VENTOLIN HFA 90 MCG/ACTUATION* INHALE 2 PUFFS INSTRUCTED * CARVEDILOL 25 MG TABLET TAKE 2 TABLETS BY MOUTH TWICE* COMPRESSION STOCKING, KNEE HI* Compression to be 20-30 DX:* CPAP Initiate Auto PAP @ 5/20 cm o* Problem List As Of Date 03/19/2018 Noted Resolved DYSURIA [R30.0] INVALID FOR* Prostatitis, unspecified [N41.9] INVALID FOR*12/11/2016 TOBACCO USE DISORDER [F17.200] ESOPHAGEAL REFLUX [K21.9] DEPRESSIVE DISORDER NEC [F32.9] JOINT PAIN-FOREARM [M25.539] INVALID FOR* GANGLION UNSPECIFIED [M67.40] INVALID FOR* HEMORRHOIDS EXTERNAL THROMBOSED [K64.5] INVALID FOR* Abdominal Pain, Unspecified Site [R10.9] Unspecified Essential Hypertension [I10] Abdominal Pain, Epigastric [R10.13] Nausea AND Vomiting [R11.2] Sprain and strain of unspecified site of foot [*INVALID FOR* Pain in limb [M79.609] INVALID FOR* Enthesopathy of ankle and tarsus, unspecified [*INVALID FOR* 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 Hypertension goal BP (blood pressure) < 140/90 * Hyperlipidemia [E78.5] Inflamed skin tag [L91.8] INVALID FOR*12/11/2016 Obesity [E66.9] INVALID FOR* CECILY (obstructive sleep apnea) [G47.33] INVALID FOR* Left-sided low back pain with left-sided sciati*INVALID FOR* Left buttock pain [M79.1] INVALID FOR* Ischial bursitis of left side [M70.72] INVALID FOR* Gallbladder polyp [K82.4] INVALID FOR* Internal hemorrhoids [K64.8] INVALID FOR* Diverticulosis of large intestine without hemor*INVALID FOR* Hyperplastic colonic polyp [K63.5] INVALID FOR* Difficult intubation [T88.4XXA] INVALID FOR* Difficult airway [T88.4XXA] INVALID FOR* More... Primary osteoarthritis of both hips [M16.0] INVALID FOR* Piriformis syndrome, left [G57.02] INVALID FOR* Trochanteric bursitis of both hips [M70.61, M70*INVALID FOR* Chest pain [R07.9] INVALID FOR*02/22/2018 Priority: A More... SOB (shortness of breath) [R06.02] INVALID FOR*02/22/2018 Priority: B More... Obesity, Class II, BMI 35-39.9 [E66.9] INVALID FOR* Encounter Status:Closed by Lucia PANDYA PA-C on 03/19/18 12 LEAD ELECTROCARDIOGRAM Observed: 03/18/2018 Status: F Source: [place] 8:52 AM [facility] REPOSITORY [facility] Cardiovascular Services [place] [address] 12 Lead EKG 03/07/18 0510 MR#: [id number] Acct: [id number] Name: TWIN NEWMAN Rep #: [id number] : 1965 53 From: Geovani Ashford MD Attending Dr: Misha Bacon MD Status: DEP [facility] Ordering Dr: Misha Bacon MD Date: 03/07/18 Location: [facility] Sex: M C Admitted: Test Reason : AM Blood Pressure : / mmHG Vent. Rate : 089 BPM Atrial Rate : 089 BPM P-R Int : 200 ms QRS Dur : 098 ms QT Int : 348 ms P-R-T Axes : 059 055 -23 degrees QTc Int : 423 ms Normal sinus rhythm Normal ECG When compared with ECG of 06-MAR-2018 11:25, MANUAL COMPARISON REQUIRED, DATA IS UNCONFIRMED Confirmed by MAKEDA OLEARY, GEOVANI ([id number]), deputy editor in chief YORDY BOWDEN ([id number]) on 03/14/2018 4:43:58 PM Referred By: Misha Bacon Confirmed By:GEOVANI ASHFORD MD 03/14/18 1644 Date Geovani Ashford MD CC: Misha Bacon MD; Vadim Gutierrez MD Signed CBC-COMPLETE BLOOD CNT Collected: 03/07/2018 Status: F Source: [place] NO DIFF 5:00 AM [facility] REPOSITORY Order Comment: RESULT(S) PREVIOUSLY REPORTED ON MANUAL REQUISITION DURING DOWNTIME. TYPE CODE TESTS RESULT OUT OF RANGE REFERENCE UNITS LAB L100.1000 4.4-11.0 K/mm3 Normal WBC 11.0 LAB L100.1200 4.6-6.2 M/mm3 Low RBC 3.93 LAB L100.1300 13.0-16.5 g/dl Low HGB 12.7 LAB L100.1400 40-54 % Low HCT 38.4 LAB L100.1500 80-94 fL High MCV 97.7 LAB L100.1600 27.0-32.0 pg High MCH 32.3 LAB L100.1700 32-36 g/gl Normal MCHC 33.1 LAB L100.1810 11.6-14.6 % Normal RDW CV 14.6 LAB L100.1820 35.1-43.9 fl High RDW SD 52.6 LAB L100.1900 150-450 K/mm3 Normal PLT 233 LAB L100.2000 6.2-12.0 fl Normal MPV 8.6 Performed By: #### L100.0500 #### [facility] [address] [place], [place], [address] BASIC METABOLIC Collected: 03/07/2018 Status: F Source: [place] PROFILE (BMP) 4:00 AM [facility] REPOSITORY Order Comment: RESULT(S) PREVIOUSLY REPORTED ON MANUAL REQUISITION DURING DOWNTIME. TYPE CODE TESTS RESULT OUT OF RANGE REFERENCE UNITS LAB L501.0100 74-106 mg/dL Normal GLU 106 Result Comment: Fasting Glucose result from 100 to 125 mg/dL suggests IMPAIRED HOMEOSTASIS per A.D.A. criteria. Please note revised GLUCOSE reference range effective 2017. LAB L501.1000 7-18 mg/dL Normal BUN 15 LAB L501.1100 0.70-1.30 mg/dL Normal CREAT,SERUM 0.85 Result Comment: The validity of the calculated GFR AND GFRAA in patients over 70 years has not been determined. Clinical correlation is essential. LAB L501.1110 >60 mL/min Normal EST GFR 100 LAB L501.1115 >60 mL/min Normal EST GFR - AA 121 LAB L501.1300 10-20 RATIO Normal BUN/CRE 17.6 LAB L501.2200 8.5-10.1 mg/dL Low CA 8.4 LAB L501.5300 136-145 mmol/L Normal NA 140 LAB L501.5600 3.5-5.1 mmol/L Normal K 3.7 LAB L501.5900 98-107 mmol/L Normal CL 106 LAB L501.6100 21.0-32.0 mmol/L Normal CO2 27.0 LAB L501.6200 5-15 Normal GAP 7 Performed By: #### L500.2500 #### [facility] [address] [place], [address] CBC W/DIFF, AUTOMATED Collected: 03/06/2018 Status: F Source: [place] 11:00 PM [facility] REPOSITORY Order Comment: RESULT(S) PREVIOUSLY REPORTED ON MANUAL REQUISITION DURING DOWNTIME. TYPE CODE TESTS RESULT OUT OF RANGE REFERENCE UNITS LAB L100.1000 4.4-11.0 K/mm3 Normal WBC 8.7 LAB L100.1200 4.6-6.2 M/mm3 Low RBC 3.69 LAB L100.1300 13.0-16.5 g/dl Low HGB 11.9 LAB L100.1400 40-54 % Low HCT 35.8 LAB L100.1500 80-94 fL High MCV 97.0 LAB L100.1600 27.0-32.0 pg High MCH 32.2 LAB L100.1700 32-36 g/gl Normal MCHC 33.2 LAB L100.1810 11.6-14.6 % Normal RDW CV 14.6 LAB L100.1820 35.1-43.9 fl High RDW SD 51.6 LAB L100.1900 150-450 K/mm3 Normal PLT 181 LAB L100.2000 6.2-12.0 fl Normal MPV 8.1 LAB L100.2100 47-70 % Normal NEUT% 61.6 LAB L100.2200 19-41 % Normal LY% 26.2 LAB L100.2300 0-10 % High MONO% 10.5 LAB L100.2400 0-5 % Normal EO% 1.3 LAB L100.2500 0-1 % Normal BASO% 0.2 LAB L100.2550 0.0-0.9 % Normal IM GRAN % 0.200 Result Comment: IG% - Immature Granulocytes (promyelocytes, myelocytes and metamyelocytes) > 1% indicates that a LEFT SHIFT is Present. LAB L100.2620 2.0-7.7 X10 3/uL Normal Absolute Neut 5.4 LAB L100.2720 0.83-4.51 X10 3/ul Normal Absolute Lymph 2.29 Performed By: #### L100.0100 #### [facility] [address] [place], [place], [address] CBC-COMPLETE BLOOD CNT Collected: 03/06/2018 Status: F Source: [place] NO DIFF 5:30 PM [facility] REPOSITORY Order Comment: RESULT(S) PREVIOUSLY REPORTED ON MANUAL REQUISITION DURING DOWNTIME. TYPE CODE TESTS RESULT OUT OF RANGE REFERENCE UNITS LAB L100.1000 4.4-11.0 K/mm3 Normal WBC 8.5 LAB L100.1200 4.6-6.2 M/mm3 Low RBC 3.91 LAB L100.1300 13.0-16.5 g/dl Low HGB 12.6 LAB L100.1400 40-54 % Low HCT 38.0 LAB L100.1500 80-94 fL High MCV 97.2 LAB L100.1600 27.0-32.0 pg High MCH 32.2 LAB L100.1700 32-36 g/gl Normal MCHC 33.2 LAB L100.1810 11.6-14.6 % High RDW CV 14.8 LAB L100.1820 35.1-43.9 fl High RDW SD 52.4 LAB L100.1900 150-450 K/mm3 Normal PLT 218 LAB L100.2000 6.2-12.0 fl Normal MPV 8.6 Performed By: #### L100.0500 #### [facility] [address] [place], [address] ACT ACTIVATED CLOTTING Collected: 03/06/2018 Status: F Source: [place] TIME 1:06 PM [facility] REPOSITORY TYPE CODE TESTS RESULT OUT OF RANGE REFERENCE UNITS LAB L9100.0100 74-137 sec High ACTk CLOT 153 TIME Performed By: #### L9100.0100 #### [facility] Point of Care [address] [place] [address] M R STAPH AUREUS Collected: 03/06/2018 Status: F Source: [place] DNA BY PCR 12:00 PM [facility] REPOSITORY Order Comment: RESULT(S) PREVIOUSLY REPORTED ON MANUAL REQUISITION DURING DOWNTIME. Source: NASAL SWAB TYPE CODE TESTS RESULT OUT OF RANGE REFERENCE UNITS LAB L8200.1100 Negative Normal MRSA Negative RESULT Performed By: #### L8200.1000 #### [facility] [address] [place], [address] ACT ACTIVATED CLOTTING Collected: 03/06/2018 Status: F Source: [place] TIME 10:44 AM [facility] REPOSITORY TYPE CODE TESTS RESULT OUT OF RANGE REFERENCE UNITS LAB L9100.0100 74-137 sec High ACTk CLOT 191 TIME Performed By: #### L9100.0100 #### [facility] Point of Care [address] [place] [address] ACT ACTIVATED CLOTTING Collected: 03/06/2018 Status: F Source: [place] TIME 10:00 AM [facility] REPOSITORY TYPE CODE TESTS RESULT OUT OF RANGE REFERENCE UNITS LAB L9100.0100 74-137 sec High ACTk CLOT 191 TIME Performed By: #### L9100.0100 #### [facility] Point of Care [address] [place] [address] PROGRESS Observed: 02/26/2018 Status: COMPLETED Source: [place] 12:50 PM [facility] REPOSITORY HNO ID: [id number] Author: Lucia Pond (AlonsoC) Mumtaz Service: (none) Author Type: Physician Metal Flow Coordinator Type: Progress Notes Filed: 02/26/2018 4:33 PM Note Text: 53 year old male with c/o HOSPITAL/ER FOLLOW UP: [facility] on 02/20/2018 for approximately 5 hours. Then to [place] 02/21-02/22/2018 Reason for visit: chest pain Which facility: [facility] Date of visit: 02/20 and 02/21-02/22 Diagnosis: Anxiety Testing done: [facility]: CTA chest negative, EKG NSR without ischemic changes [place]: serial EKG's x 3: last demonstrating ST and t-wave changes; Nuclear Stress Test: demonstrated intermediate risk moderate (10-20%) fixed perfusion defect in the RCA territory; Serial Troponin cardiac enzymes negative. Treatment given: [facility]: albuterol aerosol with improvement, discharged with Albuterol MDI. [place]: rx for Xanax Current symptoms: None currently --Chest pain sx- predictable exertional midsternal radiating to left shoulder. SOB. Does not have nitro, was not told to take aspirin. LLE swelling= activity dependent. Admits to about 3 episodes lasting 3-4 minutes each since discharge. No sweating, SOB, radiating pain, syncopal sx. Xanax does nothing. Acknowledges anxiety: girlfriend, house, kids, work stress. Back pain unchanged. HISTORIES FAMILY HISTORY Problem Relation Age of Onset - Cancer Mother kidney - Cancer Father brain - Cancer Brother testicle - Cancer Sister non hodgkins lymphoma PAST MEDICAL HISTORY Diagnosis Date - Abdominal pain, epigastric - Abdominal pain, unspecified site - Anemia - Depressive disorder, not elsewhere classified - Difficult airway 02/05/2017 could not intubate could not ventilate - Difficult intubation 02/05/2017 - DVT (deep venous thrombosis) (HCC) 11/27/12 of right calf - Esophageal reflux - Gallbladder polyp - Hyperlipidemia 2011 - Hypertension - Insomnia - MGUS (monoclonal gammopathy of unknown significance) - Nausea AND vomiting - CECILY (obstructive sleep apnea) 01/25/2015 - Snoring - Stroke (HCC) - Tobacco use disorder - Transient ischemic attack (TIA) - Unspecified essential hypertension PAST SURGICAL HISTORY Procedure Laterality Date - CARPAL TUNNEL Bilateral 2015 - CHOLECYSTECTOMY 04/02/2017 laparoscopic cholecystectomy with cholangiograms R Cebul - COLONOSCOP W/ OR W/O BRSH SPEC Colonoscopy - COLONOSCOPY 01/02/2017 - EGD W/O BRSH SPECIMEN W/BX 04/04/07 - EGD W/O OR W/BRUSH/WASH 01/03/2013 EGD - G-ESOPH REFLX TST W/ELECTROD 04/04/07 - PAST SURGICAL HISTORY OF excision lymph node - PAST SURGICAL HISTORY OF vasectomy - PAST SURGICAL HISTORY OF 2009 left knee surgery - PAST SURGICAL HISTORY OF 2011 right foot surgery - PAST SURGICAL HISTORY OF Left 2016 knee surgery, fillers used Social History Marital status: Spouse name: Years of education: Number of children: 1 Occupational History Occupation Employer Comment [employer] Social History Main Topics Smoking status: Current Every Day Smoker Packs/day: 0.50 Years: 30.00 Types: Cigarettes Start date: 12/21/1986 Smokeless tobacco: Never Used Alcohol use: No Drug use: No Sexual activity: Yes Partners with: Female control/protection: Surgical ACTIVE PROBLEM LIST Dysuria Tobacco Use Disorder Esophageal Reflux Depressive Disorder, Not Elsewhere Classified Pain in Joint, Forearm GANGLION UNSPECIFIED HEMORRHOIDS EXTERNAL THROMBOSED Abdominal Pain, Unspecified Site Unspecified Essential Hypertension Abdominal Pain, Epigastric Nausea AND Vomiting Sprain of Foot, Unspecified Site Pain in Limb Enthesopathy of Ankle and Tarsus, Unspecified Herpes Sinus Tarsi Syndrome Dvt, Lower Extremity, Distal (Hcc) Anemia Pigmented Purpuric Dermatosis Hypertension Goal Bp (Blood Pressure) < 140/90 Hyperlipidemia Obesity Cecily (Obstructive Sleep Apnea) Left-Sided Low Back Pain With Left-Sided Sciatica Left Buttock Pain Ischial Bursitis of Left Side Gallbladder Polyp Internal Hemorrhoids Diverticulosis of Large Intestine Without Hemorrhage Hyperplastic Colonic Polyp Difficult Intubation Difficult Airway Primary Osteoarthritis of Both Hips Piriformis Syndrome, Left Trochanteric Bursitis of Both Hips Obesity, Class II, Bmi 35-39.9 Current Outpatient Prescriptions: pravastatin (PRAVACHOL) 20 mg tablet Take 2 tablets by mouth daily at bedtime. Disp: 30 tablet Rfl: 2 ALPRAZolam (XANAX) 0.5 mg tablet Take 1 tablet by mouth twice daily as needed for Anxiety for up to 7 days. Disp: 14 tablet Rfl: 0 diclofenac, EC, (VOLTAREN) 75 mg EC tablet Disp: Rfl: tiZANidine (ZANAFLEX) 4 mg tablet Take 1 tablet by mouth every 8 hours as needed (muscle spasms). Disp: 30 tablet Rfl: 3 zolpidem (AMBIEN) 10 mg tab Take 1 tablet by mouth daily at bedtime for 90 days. Disp: 30 tablet Rfl: 2 losartan-hydrochlorothiazide (HYZAAR) 100-25 mg per tablet TAKE 1 TABLET BY MOUTH ONCE DAILY. Disp: 90 tablet Rfl: 1 Omeprazole (PRILOSEC) 40 mg capsule Take 1 capsule by mouth once daily. Disp: 90 capsule Rfl: 1 DULoxetine (CYMBALTA) 60 mg capsule TAKE 1 CAPSULE BY MOUTH ONCE DAILY. Disp: 90 capsule Rfl: 3 VENTOLIN HFA 90 mcg/actuation inhaler INHALE 2 PUFFS INSTRUCTED EVERY 6 HOURS NEEDED FOR WHEEZING/SHORTNESS OF BREATH. Disp: 18 Inhaler Rfl: 2 carvedilol (COREG) 25 mg tablet TAKE 2 TABLETS BY MOUTH TWICE DAILY. Disp: 360 tablet Rfl: 3 Comp Stocking,Knee,Regular,Sml (T.E.D. KNEE [id number]) misc Compression to be 20-30 DX: venous insufficiency Disp: 2 Each Rfl: 6 CPAP Initiate Auto PAP @ 5/20 cm of water with humidification. Mask (per patient preference) optional chin strap (if indicated) , filters, tubing, humidifier and lifetime supplies. Please fax downloads to [phone]. Disp: 1 Device Rfl: 0 No current facility-administered medications for this visit. There are no preventive care reminders to display for this patient. EXAM: BP 106/78 Pulse 60 Temp 36.2 ?C (97.1 ?F) (Tympanic) Resp 16 Pleasant adult male in no acute distress. Alert and oriented all spheres. Normal affect and cognition. Speech normal. No deficits to learning or comprehension. Mood is euthymic though edgy. Skin warm, dry, pink to lips and nailbeds. Normal turgor. Respirations regular and unlabored. HEENT WNL. TM's clear. Nose and oropharynx free from injection or lesion. No cervical lymph nodes. Thyroid non-tender, no masses Chest CTA. HRRR without murmur or gallop. Extrem: no clubbing, cyanosis, edema. Extremities are warm and pink with prompt capillary refill. ASSESSMENT/PLAN: 1. Stable angina pectoris (HCC) - ICD9: 413.9, ICD10: I20.8 (primary diagnosis) Reviewed protocols for sustained chest pain. See discharge instructions. - CONSULT TO CARDIOLOGY - NITROGLYCERIN 0.4 MG SUBLINGUAL TABLET 2. MIKE (generalized anxiety disorder) - ICD9: 300.02, ICD10: F41.1 Discussed situational stress, counseling, communication management. Not interested at this time. - BUSPIRONE 10 MG TABLET 3. Chronic left-sided low back pain with left-sided sciatica - ICD9: 724.2, 724.3, 338.29, ICD10: M54.42, G89.29 Symptoms consistent with herniated disc Awaiting approval MRI F/u prn M Anibal Pandya PA-C CNOV Observed: 02/26/2018 Status: COMPLETED Source: [place] 12:[address] [facility] REPOSITORY Office Visit (FAMPWS) TWIN NEWMAN ([id number]) 1965 Lucia Date Time Provider Department 02/26/18 12:40 PM Lucia PANDYA) FAMPWS During your visit today, we recorded the following information about you: Temperature Pulse Respiration Blood pressure 97.1 degrees 60/minute 16/minute 106/78 M Anibal Pandya PA-C 02/26/2018 4:33 PM Signed 53 year old male with c/o HOSPITAL/ER FOLLOW UP: [facility] on 02/20/2018 for approximately 5 hours. Then to [place] 02/21-02/22/2018 Reason for visit: chest pain Which facility: [facility] Date of visit: 02/20 and 02/21-02/22 Diagnosis: Anxiety Testing done: [facility]: CTA chest negative, EKG NSR without ischemic changes [place]: serial EKG's x 3: last demonstrating ST and t-wave changes; Nuclear Stress Test: demonstrated intermediate risk moderate (10-20%) fixed perfusion defect in the RCA territory; Serial Troponin cardiac enzymes negative. Treatment given: [facility]: albuterol aerosol with improvement, discharged with Albuterol MDI. [facility]: rx for Xanax Current symptoms: None currently --Chest pain sx- predictable exertional midsternal radiating to left shoulder. SOB. Does not have nitro, was not told to take aspirin. LLE swelling= activity dependent. Admits to about 3 episodes lasting 3-4 minutes each since discharge. No sweating, SOB, radiating pain, syncopal sx. Xanax does nothing. Acknowledges anxiety: girlfriend, house, kids, work stress. Back pain unchanged. HISTORIES FAMILY HISTORY Problem Relation Age of Onset - Cancer Mother kidney - Cancer Father brain - Cancer Brother testicle - Cancer Sister non hodgkins lymphoma PAST MEDICAL HISTORY Diagnosis Date - Abdominal pain, epigastric - Abdominal pain, unspecified site - Anemia - Depressive disorder, not elsewhere classified - Difficult airway 02/05/2017 could not intubate could not ventilate - Difficult intubation 02/05/2017 - DVT (deep venous thrombosis) (HCC) 11/27/12 of right calf - Esophageal reflux - Gallbladder polyp - Hyperlipidemia 2011 - Hypertension - Insomnia - MGUS (monoclonal gammopathy of unknown significance) - Nausea AND vomiting - CECILY (obstructive sleep apnea) 01/25/2015 - Snoring - Stroke (HCC) - Tobacco use disorder - Transient ischemic attack (TIA) - Unspecified essential hypertension PAST SURGICAL HISTORY Procedure Laterality Date - CARPAL TUNNEL Bilateral 2015 - CHOLECYSTECTOMY 04/02/2017 laparoscopic cholecystectomy with cholangiograms R [facility] - COLONOSCOP W/ OR W/O BRSH SPEC Colonoscopy - COLONOSCOPY 01/02/2017 - EGD W/O BRSH SPECIMEN W/BX 04/04/07 - EGD W/O OR W/BRUSH/WASH 01/03/2013 EGD - G-ESOPH REFLX TST W/ELECTROD 04/04/07 - PAST SURGICAL HISTORY OF excision lymph node - PAST SURGICAL HISTORY OF vasectomy - PAST SURGICAL HISTORY OF 2010 left knee surgery - PAST SURGICAL HISTORY OF 2012 right foot surgery - PAST SURGICAL HISTORY OF Left 2016 knee surgery, fillers used Social History Marital status: Spouse name: Years of education: Number of children: 1 Occupational History Occupation Employer Comment [employer] Social History Main Topics Smoking status: Current Every Day Smoker Packs/day: 0.50 Years: 30.00 Types: Cigarettes Start date: 12/21/1986 Smokeless tobacco: Never Used Alcohol use: No Drug use: No Sexual activity: Yes Partners with: Female control/protection: Surgical ACTIVE PROBLEM LIST Dysuria Tobacco Use Disorder Esophageal Reflux Depressive Disorder, Not Elsewhere Classified Pain in Joint, Forearm GANGLION UNSPECIFIED HEMORRHOIDS EXTERNAL THROMBOSED Abdominal Pain, Unspecified Site Unspecified Essential Hypertension Abdominal Pain, Epigastric Nausea AND Vomiting Sprain of Foot, Unspecified Site Pain in Limb Enthesopathy of Ankle and Tarsus, Unspecified Herpes Sinus Tarsi Syndrome Dvt, Lower Extremity, Distal (Hcc) Anemia Pigmented Purpuric Dermatosis Hypertension Goal Bp (Blood Pressure) < 140/90 Hyperlipidemia Obesity Cecily (Obstructive Sleep Apnea) Left-Sided Low Back Pain With Left-Sided Sciatica Left Buttock Pain Ischial Bursitis of Left Side Gallbladder Polyp Internal Hemorrhoids Diverticulosis of Large Intestine Without Hemorrhage Hyperplastic Colonic Polyp Difficult Intubation Difficult Airway Primary Osteoarthritis of Both Hips Piriformis Syndrome, Left Trochanteric Bursitis of Both Hips Obesity, Class II, Bmi 35-39.9 Current Outpatient Prescriptions: pravastatin (PRAVACHOL) 20 mg tablet Take 2 tablets by mouth daily at bedtime. Disp: 30 tablet Rfl: 2 ALPRAZolam (XANAX) 0.5 mg tablet Take 1 tablet by mouth twice daily as needed for Anxiety for up to 7 days. Disp: 14 tablet Rfl: 0 diclofenac, EC, (VOLTAREN) 75 mg EC tablet Disp: Rfl: tiZANidine (ZANAFLEX) 4 mg tablet Take 1 tablet by mouth every 8 hours as needed (muscle spasms). Disp: 30 tablet Rfl: 3 zolpidem (AMBIEN) 10 mg tab Take 1 tablet by mouth daily at bedtime for 90 days. Disp: 30 tablet Rfl: 2 losartan-hydrochlorothiazide (HYZAAR) 100-25 mg per tablet TAKE 1 TABLET BY MOUTH ONCE DAILY. Disp: 90 tablet Rfl: 1 Omeprazole (PRILOSEC) 40 mg capsule Take 1 capsule by mouth once daily. Disp: 90 capsule Rfl: 1 DULoxetine (CYMBALTA) 60 mg capsule TAKE 1 CAPSULE BY MOUTH ONCE DAILY. Disp: 90 capsule Rfl: 3 VENTOLIN HFA 90 mcg/actuation inhaler INHALE 2 PUFFS INSTRUCTED EVERY 6 HOURS NEEDED FOR WHEEZING/SHORTNESS OF BREATH. Disp: 18 Inhaler Rfl: 2 carvedilol (COREG) 25 mg tablet TAKE 2 TABLETS BY MOUTH TWICE DAILY. Disp: 360 tablet Rfl: 3 Comp Stocking,Knee,Regular,Sml (T.E.D. KNEE [id number]) misc Compression to be 20-30 DX: venous insufficiency Disp: 2 Each Rfl: 6 CPAP Initiate Auto PAP @ 5/20 cm of water with humidification. Mask (per patient preference) optional chin strap (if indicated) , filters, tubing, humidifier and lifetime supplies. Please fax downloads to [phone]. Disp: 1 Device Rfl: 0 No current facility-administered medications for this visit. There are no preventive care reminders to display for this patient. EXAM: BP 106/78 Pulse 60 Temp 36.2 ?C (97.1 ?F) (Tympanic) Resp 16 Pleasant adult male in no acute distress. Alert and oriented all spheres. Normal affect and cognition. Speech normal. No deficits to learning or comprehension. Mood is euthymic though edgy. Skin warm, dry, pink to lips and nailbeds. Normal turgor. Respirations regular and unlabored. HEENT WNL. TM's clear. Nose and oropharynx free from injection or lesion. No cervical lymph nodes. Thyroid non-tender, no masses Chest CTA. HRRR without murmur or gallop. Extrem: no clubbing, cyanosis, edema. Extremities are warm and pink with prompt capillary refill. ASSESSMENT/PLAN: 1. Stable angina pectoris (HCC) - ICD9: 413.9, ICD10: I20.8 (primary diagnosis) Reviewed protocols for sustained chest pain. See discharge instructions. - CONSULT TO CARDIOLOGY - NITROGLYCERIN 0.4 MG SUBLINGUAL TABLET 2. MIKE (generalized anxiety disorder) - ICD9: 300.02, ICD10: F41.1 Discussed situational stress, counseling, communication management. Not interested at this time. - BUSPIRONE 10 MG TABLET 3. Chronic left-sided low back pain with left-sided sciatica - ICD9: 724.2, 724.3, 338.29, ICD10: M54.42, G89.29 Symptoms consistent with herniated disc Awaiting approval MRI F/u prn M AUGUST Singer PA-C 02/26/2018 1:56 PM Signed Chest pain: When to seek help ? If you have chest pain that is new, severe, prolonged, or if chest pain causes concern, call 911 immediately. The emergency medical services (EMS) personnel in your community are prepared to respond rapidly, and will take you to the nearest hospital. For a patient having a heart attack, every minute is important. Remember, the faster you get to a hospital, the sooner you can receive treatment. Do not drive yourself to the hospital and do not ask someone else to drive you. Calling 911 is safer than driving for two reasons: From the moment EMS personnel arrive, they can begin evaluating and treating chest pain. If you drive to the hospital, treatment cannot begin until you arrive in the emergency department. If a dangerous complication of a heart attack (eg, a serious irregular heart rhythm) occurs on the way to the hospital, EMS personnel are trained to treat the problem immediately. While waiting for the squad, rest sitting or laying down and try to remain calm. If you are not allergic: chew 4 Baby Aspirin or 2 adult aspirin. Aspirin has been shown to reduce incidence and severity with heart attacks. Referring Provider: SELF [200] Allergies As of Date: 02/26/2018 Noted Allergy Reaction FLEXERIL (CYCLOBENZAPRINE HCL) 12/20/2012 8 - GI Upset TRAMADOL 12/16/2014 8 - GI Upset VICODIN (HYDROCODONE-ACETAMINOPHE*12/13/2009 8 - GI Upset Date Reviewed: 02/26/2018 Reviewed by: Kerri Ruvalcaba LPN - Fully Assessed Reason for Visit: Hospital Follow Up [177] Cmt: Seen at [facility] ER 02/20/18 and admitted in [facility] on 02/21/18 for chest pain. Consult [502] Cmt: to cardio for possible heart cath Anxiety [9] Cmt: was questionable if symptoms related to anxiety and given xanax without releif of symptoms. Primary Visit Diagnosis:Stable angina pectoris (HCC) [I20.8] Other Visit Diagnoses:MIKE (generalized anxiety disorder) [F41.1] Chronic left-sided low back pain with left-sided sciatica [M54.42, G89.29] Order(s):CONSULT TO CARDIOLOGY [9004] Order #: [id number]: 1 nitroglycerin sublingual (NITROQUICK) 0.4 mg SL tabletDissolve 1 tablet under the tongue every 5 minutes as needed for Chest Pain.Disp: 1 Bottle of 25Rfl: 1 busPIRone (BUSPAR) 10 mg tabletTake 0.5 tablets by mouth twice daily. Titrate to 10mg twice a in 2 weeks if tolerating.Disp: 30 tabletRfl: 1 Prescriptions as of 02/26/2018 Sig: PRAVASTATIN 20 MG TABLET Take 2 tablets by mouth daily* ALPRAZOLAM 0.5 MG TABLET Take 1 tablet by mouth twice * DICLOFENAC SODIUM 75 MG TABLE* TIZANIDINE 4 MG TABLET Take 1 tablet by mouth every * ZOLPIDEM 10 MG TABLET Take 1 tablet by mouth daily * LOSARTAN 100 MG-HYDROCHLOROTH* TAKE 1 TABLET BY MOUTH ONCE D* OMEPRAZOLE 40 MG CAPSULE,BRYNN* Take 1 capsule by mouth once * DULOXETINE 60 MG CAPSULE,BRYNN* TAKE 1 CAPSULE BY MOUTH ONCE * VENTOLIN HFA 90 MCG/ACTUATION* INHALE 2 PUFFS INSTRUCTED * CARVEDILOL 25 MG TABLET TAKE 2 TABLETS BY MOUTH TWICE* NITROGLYCERIN 0.4 MG SUBLINGU* Dissolve 1 tablet under the t* BUSPIRONE 10 MG TABLET Take 0.5 tablets by mouth twi* COMPRESSION STOCKING, KNEE HI* Compression to be 20-30 DX:* CPAP Initiate Auto PAP @ 5/20 cm o* Problem List As Of Date 02/26/2018 Noted Resolved DYSURIA [R30.0] INVALID FOR* Prostatitis, unspecified [N41.9] INVALID FOR*12/11/2016 TOBACCO USE DISORDER [F17.200] ESOPHAGEAL REFLUX [K21.9] DEPRESSIVE DISORDER NEC [F32.9] JOINT PAIN-FOREARM [M25.539] INVALID FOR* GANGLION UNSPECIFIED [M67.40] INVALID FOR* HEMORRHOIDS EXTERNAL THROMBOSED [K64.5] INVALID FOR* Abdominal Pain, Unspecified Site [R10.9] Unspecified Essential Hypertension [I10] Abdominal Pain, Epigastric [R10.13] Nausea AND Vomiting [R11.2] Sprain and strain of unspecified site of foot [*INVALID FOR* Pain in limb [M79.609] INVALID FOR* Enthesopathy of ankle and tarsus, unspecified [*INVALID FOR* 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 Hypertension goal BP (blood pressure) < 140/90 * Hyperlipidemia [E78.5] Inflamed skin tag [L91.8] INVALID FOR*12/11/2016 Obesity [E66.9] INVALID FOR* CECILY (obstructive sleep apnea) [G47.33] INVALID FOR* Left-sided low back pain with left-sided sciati*INVALID FOR* Left buttock pain [M79.1] INVALID FOR* Ischial bursitis of left side [M70.72] INVALID FOR* Gallbladder polyp [K82.4] INVALID FOR* Internal hemorrhoids [K64.8] INVALID FOR* Diverticulosis of large intestine without hemor*INVALID FOR* Hyperplastic colonic polyp [K63.5] INVALID FOR* Difficult intubation [T88.4XXA] INVALID FOR* Difficult airway [T88.4XXA] INVALID FOR* More... Primary osteoarthritis of both hips [M16.0] INVALID FOR* Piriformis syndrome, left [G57.02] INVALID FOR* Trochanteric bursitis of both hips [M70.61, M70*INVALID FOR* Chest pain [R07.9] INVALID FOR*02/22/2018 Priority: A More... SOB (shortness of breath) [R06.02] INVALID FOR*02/22/2018 Priority: B More... Obesity, Class II, BMI 35-39.9 [E66.9] INVALID FOR* Other instructions from your clinician: Chest pain: When to seek help ? If you have chest pain that is new, severe, prolonged, or if chest pain causes concern, call 911 immediately. The emergency medical services (EMS) personnel in your community are prepared to respond rapidly, and will take you to the nearest hospital. For a patient having a heart attack, every minute is important. Remember, the faster you get to a hospital, the sooner you can receive treatment. Do not drive yourself to the hospital and do not ask someone else to drive you. Calling 911 is safer than driving for two reasons: From the moment EMS personnel arrive, they can begin evaluating and treating chest pain. If you drive to the hospital, treatment cannot begin until you arrive in the emergency department. If a dangerous complication of a heart attack (eg, a serious irregular heart rhythm) occurs on the way to the hospital, EMS personnel are trained to treat the problem immediately. While waiting for the squad, rest sitting or laying down and try to remain calm. If you are not allergic: chew 4 Baby Aspirin or 2 adult aspirin. Aspirin has been shown to reduce incidence and severity with heart attacks. Prescriptions ordered this encounter Disp Refills Start End NITROGLYCERIN 0.4 MG SUBLINGUAL TABL* 1 Mega* 1 02/26/2018 Route: SUBLINGUAL Sig: Dissolve 1 tablet under the tongue every 5 minutes as needed for Chest Pain. BUSPIRONE 10 MG TABLET 30 t* 1 02/26/2018 Route: ORAL Sig: Take 0.5 tablets by mouth twice daily. Titrate to 10mg twice a in 2 weeks if tolerating. Encounter Status:Closed by Lucia PANDYA PA-C on 02/26/18 CNDS Observed: 02/22/2018 Status: COMPLETED Source: [place] 5:28 PM CLINIC OTHER CAMPUS REPOSITORY O ID: [id number] Author: Ang Bowen Service: Hospital Medicine Author Type: Physician Type: Discharge Summaries Filed: 02/22/2018 5:39 PM Note Text: DISCHARGE SUMMARY PATIENT NAME: Twin Newman Admission Information Admission Information ADMIT DATE: 02/21/2018 DISCHARGE DATE: 02/22/18 MY DOCTORS AND MEDICAL TEAM: My Main Hospital Doctor: Ang Bowen Primary Care Provider: Vadim Gutierrez MD My Medical Team Members: Treatment Team: Attending Provider: Ang Bowen Physician Metal Flow Coordinator: Janes Mendez (Pa) MY CONDITION AT DISCHARGE: Stable REASON I WAS IN THE HOSPITAL: Chest pain SUMMARY OF WHAT HAPPENED WHILE I WAS IN THE HOSPITAL: Evaluated for chest pain, heart attacked ruled out. Nuclear stress test completed, intermediate risk with fixed area of ischemia. 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 Dose of pravastatin increased upon discharge. Xanax prescribed as needed for 7 days as patient is undergoing multiple stressors in life which could contribute to his symptoms. OTHER PROBLEMS/DIAGNOSIS: Principal Problem (Resolved): Chest pain Active Problems: Obesity, Class II, BMI 35-39.9 Resolved Problems: SOB (shortness of breath) OPERATIONS PERFORMED WHILE IN THE HOSPITAL: None IMPORTANT TEST/PROCEDURES: Stress Test TEST RESULTS NOT AVAILABLE AT THIS TIME: No pending results Discharge Disposition Discharge Disposition: Home With Self Care Activity When You Leave the Hospital Resume pre-hospital activity Diet Instructions Resume your pre-hospital diet Return to Work On the following date: 02/26/18 Call Your Doctor If You have persistent nausea/vomiting over 24 hours Follow Up Appointments Follow-Up Appointment With: PCP Dr. Gutierrez When: In: Comment - 1-2 weeks, hospital follow up Patient/Parents to call for appointment?: Yes Additional Provider to Provider Information: Principal Problem (Resolved): Chest pain POA: Yes Likely anxiety and musculoskeletal in nature. Patient does have significant risk factors including HTN, HLD, obesity, smoking, Fam Hx of cardiac arrest in 40s-50s. HStrop 16, 17 on repeat. RIVAS <0.010, CK MB wnl, BNP 111. EKG NSR without ST changes or TWI. Pain is reproducible. Heart score 4. Cardiac enzymes negative for heart attack Telemetry monitoring without acute events NM cardiac stress test: Intermediate scan, moderate (10-20%) fixed perfusion defect in the RCA territory. F/U with outpatient PCP and evaluation by outpatient Cardiology per PCP choosing. Statin dose increased upon discharge. Work excuse written upon discharge. Active Problems: Obesity, Class II, BMI 35-39.9 POA: Yes Body mass index is 36.81 kg/m?. Advise weight loss through diet or exercise Anxiety Significant emotional, financial, and emotional stressors in patient's life. Suspected anxiety contributing to above symptoms. Filing for bankruptcy soon. Prescribed 7 days of Xanax bid PRN. Resolved Problems: SOB (shortness of breath) POA: Yes Initially suspected bronchospasm vs COPD (undiagnosed) States he has had PFTs in past that were unremarkable. CTA chest at [facility] last night: NAP. CXR (02/21/18) no acute process. Solumedrol, duoneb, mucinex initially given, no acute events during hospitalization FOLLOW-UP APPOINTMENTS ALREADY SCHEDULED WITH A [facility] PROVIDER: No future appointments. DISCHARGE MEDICATION: Current Discharge Medication List START taking these medications ALPRAZolam (XANAX) 0.5 mg Take 0.5 mg by mouth twice daily as needed for Anxiety. Qty: 14 tablet Refills: 0 Associated Diagnoses:Anxiety CONTINUE these medications which have CHANGED pravastatin (PRAVACHOL) 40 mg Take 40 mg by mouth daily at bedtime. Qty: 30 tablet Refills: 2 CONTINUE these medications which have NOT CHANGED diclofenac, EC, (VOLTAREN) 75 mg EC tablet Associated Diagnoses:Dorsalgia; Chronic left-sided low back pain with left-sided sciatica; Ischial bursitis of left side; Lumbar post-laminectomy syndrome zolpidem (AMBIEN) 10 mg Take 10 mg by mouth daily at bedtime. Qty: 30 tablet Refills: 2 Associated Diagnoses:Chronic insomnia losartan-hydrochlorothiazide (HYZAAR) 100-25 mg per tablet TAKE 1 TABLET BY MOUTH ONCE DAILY. Qty: 90 tablet Refills: 1 DULoxetine (CYMBALTA) 60 mg capsule TAKE 1 CAPSULE BY MOUTH ONCE DAILY. Qty: 90 capsule Refills: 3 VENTOLIN HFA 90 mcg/actuation inhaler INHALE 2 PUFFS INSTRUCTED EVERY 6 HOURS NEEDED FOR WHEEZING/SHORTNESS OF BREATH. Qty: 18 Inhaler Refills: 2 carvedilol (COREG) 25 mg tablet TAKE 2 TABLETS BY MOUTH TWICE DAILY. Qty: 360 tablet Refills: 3 tiZANidine (ZANAFLEX) 4 mg Take 4 mg by mouth every 8 hours as needed (muscle spasms). Qty: 30 tablet Refills: 3 Associated Diagnoses:Pain, neck; DDD (degenerative disc disease), cervical Omeprazole 40 mg Take 40 mg by mouth once daily. Qty: 90 capsule Refills: 1 Comp Stocking,Knee,Regular,Sml (T.E.D. KNEE [id number]) misc Compression to be 20-30 DX: venous insufficiency Qty: 2 Each Refills: 6 Associated Diagnoses:Venous insufficiency CPAP Initiate Auto PAP @ 5/20 cm of water with humidification. Mask (per patient preference) optional chin strap (if indicated) , filters, tubing, humidifier and lifetime supplies. Please fax downloads to [phone]. Qty: 1 Device Refills: 0 Discharge Physical Exam: PHYSICAL EXAM: BP 162/82 Pulse 90 Temp (Src) 98.2 (Oral) Resp 16 Ht 5' 7 (1.70m) Wt 235 lb (106.6kg) SpO2 95% BMI 36.80 kg/(m2). GENERAL: Alert, no distress, cooperative SKIN: Skin color reddish/tanned, texture, turgor normal. No rashes or lesions. HEAD/SINUSES: No significant findings, NC/AT EYES: EOMI, sclera normal NOSE: Nares normal. Septum midline. OROPHARYNX: Lips, mucosa, and tongue normal. NECK: No jugulovenous distention, Supple BACK: Back symmetric, Normal curvature, ROM normal LUNGS: Lungs clear to auscultation, Good diaphragmatic excursion CARDIAC: Normal S1 and S2; no rubs, murmurs, or gallops ABDOMEN: Abdomen soft, non-tender, BS normal, obese abdomen EXTREMITIES: Extremities normal, no deformities, edema NEURO: Grossly normal cognition, motor function, and cranial nerves III-XII PULSES: 2+ radial The remainder of the physical exam is noncontributory. Recent Labs 02/22/18 0305 02/21/18 1905 02/20/18 1240 WBC 8.56 7.60 7.74 HB 15.3 14.4 14.2 PLT 250 224 242 NA 138 141 140 K 3.5* 3.5* 3.9 CO2 27 29 28 BUN 22 19 17 CREAT 0.99 0.97 1.01 AST 14 13* 15 ALT 15 12 15 TBILI 0.3 0.2 0.4 ALKPHOS 72 70 68 NM Cardiac Perf Stress Test (02/22/18): CONCLUSIONS: ?1. SPECT Perfusion Study: Abnormal. ?2. There is a moderate (10-20%) fixed perfusion defect in the RCA territory. ?3. There is no scintigraphic evidence for inducible ischemia. ?4. Functional capacity N/A (pharmacological). ?5. Left ventricle is normal in size. The left ventricle systolic function is normal. ?6. This is an intermediate risk scan. ?LVEF % 69 Chest XR 1-view (02/21/18): IMPRESSION: Lines, tubes, and devices: ?None. Lungs and pleura: ?Lungs are clear. ?No evidence of pulmonary vascular redistribution or pleural effusion. Cardiomediastinal silhouette: ?Stable cardiomediastinal silhouette. TIME OF CARE: Discharge Management: I personally spent less than 30 minutes involved in the discharge management of this patient. SIGNATURE: Ang Bowen MD PAGER/CONTACT #: [phone] DATE: February 22, 2018 TIME: 5:28 PM CASE MGT INIT Observed: 02/22/2018 Status: COMPLETED Source: [place] 3:12 PM CLINIC OTHER CAMPUS REPOSITORY HNO ID: [id number] Author: Christal Doshi (Sw) Service: Care Management Author Type: [employer] Type: Care Mgt Initial Assessment Filed: 02/22/2018 3:19 PM Note Text: CARE MANAGEMENT: ASSESSMENT AND DISCHARGE PLAN SERVICE DATE: 02/22/2018 SERVICE TIME: 2:40PM PRIMARY CARE PHYSICIAN: Vadim Gutierrez MD - confirmed with patient ADMISSION STATUS: Observation MEDICAL: Patient/Electrocardiograph Technician Stated Goals: To return home to life as it was Health Insurance: [employer] PPO . Health Issues Impacting Discharge Plan: None Last Admission Date: none Is this Within the Past 30 days? No Advance Directive: LW on chart Health Literacy: 1. How often do you need to have someone help you when you read instructions, pamphlets, or other written material from your doctor or pharmacy? Never - 1 2. How confident are you filling out medical forms by yourself? Extremely - 1 If Patient scores > 3 on either question, the following interventions were put into place: Patient did not score > 3 FUNCTIONAL AND COGNITIVE/BEHAVIORAL PRIOR TO ADMISSION: Baseline Mental Status: Alert AND Oriented, Person, Place , Time and Situation Functional Status: Independent Does Patient Currently Receive Any Community Services or Home Care? None Equipment Prior to Admission: None Has the Patient Been in a Detention Facility in the Past 30 days? No SOCIAL: Living Arrangement: Home Lives With: Girlfriend Financial Resources: Employed: . Primary Contact: Extended Emergency Contact Information Primary Emergency Contact: Miesha Givens [address]: [address] [place] [id number] [place] [address] Relation: Significant other Secondary Emergency Contact: Letty Henao Mobile Relation: Sister Supportive: Yes Other Important Patient Contacts: None Caregiver Assessment: Caregiver is ready, willing and able to meet the patient's needs as recommended by the inter-professional team? No Caregiver Needed Patient's transition needs and plan for meeting these needs: Does the patient have an acute stroke diagnosis, or has the patient had a stroke during this admission? No Medication Adherence: I am convinced of the importance of my prescription medication: Agree completely - 0 I worry that my prescription medication will do more harm than good to me Disagree completely - 0 I feel financially burdened by my [id number] expenses for my prescription medication: Disagree mostly -0 Patient is categorized as low risk < 2 Are you interested in bedside delivery of your medications? No Food Concerns: In the Last Month, Have You had Trouble Getting Food? No trouble getting food During the Last Month, Have You Worried Whether Your Food Would Run Out Before You Had Enough Money to Buy More? No Is the Patient Psychosocially Complex? No ASSESSMENT AND PLAN: Medical Needs: None Psychosocial Needs: None FREEDOM OF CHOICE EXPLAINED: N/A POTENTIAL TRANSITION PLANS No Services Indicated CM met with patient. Waiting for results of stress test today. Anticipate d/c today. IPTA. Has no skilled needs. SIGNATURE: ADAMARIS Brown PATIENT NAME: Twin Newman DATE: February 22, 2018 TIME: 3:12 PM PAGER/CONTACT #: [phone] 12 LEAD ELECTROCARDIOGRAM Observed: 02/22/2018 Status: F Source: [place] 10:58 AM [facility] REPOSITORY [facility] Cardiovascular Services [address] [place] [id number] Lead EKG 02/20/18 2130 MR#: [id number] Acct: [id number] Name: TWIN NEWMAN Rep #: [id number] : 1965 53 From: Alex Figueroa MD Attending Dr: Status: DEP ER Ordering Dr: Pj Wiseman DO Date: 02/20/18 Location: ED Sex: M C Admitted: Test Reason : CHEST PAIN Blood Pressure : / mmHG Vent. Rate : 074 BPM Atrial Rate : 074 BPM P-R Int : 184 ms QRS Dur : 096 ms QT Int : 386 ms P-R-T Axes : 051 058 060 degrees QTc Int : 428 ms Normal sinus rhythm Normal ECG Confirmed by REGIS OLEARY, ALEX ([id number]), deputy editor in chief YORDY BOWDEN ([id number]) on 02/22/2018 10:58:16 AM Referred By: BENITA Confirmed By:ALEX FIGUEROA MD 02/22/18 1058 Date Alex Figueroa MD CC: Pj Wiseman DO; Vadim Gutierrez MD Signed NM CARDIAC PERF Observed: 02/22/2018 Status: F Source: [facility] STRESS/PHARM 10:30 AM CLINIC OTHER CAMPUS REPOSITORY * * *Final Report* * * DATE OF EXAM: Feb 22 2018 10:30AM IBIS 0006 - NM CARDIAC PERF STRESS/PHARM / PROCEDURE REASON: Chest pain or palpitations, low prob, uninterpretable ECG or cannot exercise * * * * Physician Interpretation * * * * PATIENT: Name: TWIN NEWMAN Age: 53 years Gender: M CONCLUSIONS: 1. SPECT Perfusion Study: Abnormal. 2. There is a moderate (10-20%) fixed perfusion defect in the RCA territory. 3. There is no scintigraphic evidence for inducible ischemia. 4. Functional capacity N/A (pharmacological). 5. Left ventricle is normal in size. The left ventricle systolic function is normal. 6. This is an intermediate risk scan. 1 LVEF % 69 Prior Study Comparison Prior nuclear cardiology exam was performed on [..].08/21/2016. Nuclear Med Report:1-Day Tc-Tetrofosmin Gated SPECT Myocardial Perfusion with Regadenoson Stress: Myocardial perfusion imaging was performed at rest 30 minutes following the IV injection of Tc-99m tetrofosmin. The patient received 0.4 mg of regadenoson, via rapid IV push, immediately followed by Tc-99m tetrofosmin IV. Gated post stress tomographic imaging was performed 30 to 60 minutes later. See administered doses below. [facility] Date of service: 02/22/2018 8:41:07 AM Ordering Physician: Janes Mendez Requesting Physician: Indication: Assessment for known CAD, CP - ECG uniterpretable OR unable to exercise and Unable to Exercise. Interpreting physician: Cheyenne Figueroa MD Patient History: History of smoker, hypertension, dyslipidemia, diabetes mellitus and family hx of premature CAD. Medications currently taking are B-aurelia, anti-depressants, diuretic and ARB. Height: 170.18 cm BSA: 2.24 m? Weight: 106.60 kg BMI: 36.8 kg/m? Exam Type: Rest Stress Radiopharm: Tc-99m Tetrofosmin Tc-99m Tetrofosmin Dosage(mCi): 16.5 47.4 Atten Correction: not performed not performed Stress Agent: Regadenoson 0.4mg Supply provided from [facility] Resting Heart Rate: 65 bpm Resting Blood Press: 174/97 mmHg Image Quality The overall study imaging quality was deemed to be excellent. FINDINGS: Left Ventricle Wall Motion: 1 - The inferior wall is akinetic. The apical inferior segment is hypokinetic. All remaining scored segments are normal. 2 - 1 1 LVEF: 69 % Perfusion Findings 1 - Summed Score=8 There is a absent perfusion defect in the inferior wall. All remaining scored segments show normal perfusion. 2 - Summed Score=8 There is a absent perfusion defect in the inferior wall. All remaining scored segments show normal perfusion. 1 2 Summed Score=8 Summed Score=8 LEFT VENTRICLE The left ventricle is normal in size. Left ventricular systolic function is normal. Right Ventricle The right ventricle is unseen or not interrogated. Stress Test Findings: There is no scintigraphic evidence for inducible ischemia. The stress test was terminated due to the following: End of Protocol. Peak HR 94 bpm. (56 % MPHR) Peak BP 163 mmHg/102 mmHg Patient experienced shortness of breath during stress. Stress ECG was non-diagnostic due to abnormal rest ECG and normal sinus rhythm. Stress complications: none. Final Assembly Adjuster: ALISON Transcribe Date/Time: Feb 22 2018 8:41A Dictated by : CHEYENNE FIGUEROA MD This examination was interpreted and the report reviewed and electronically signed by: CHEYENNE FIGUEROA MD on Feb 22 2018 5:06PM EST [id number] NURSING PROG Observed: 02/22/2018 Status: COMPLETED Source: [place] 7:45 AM [facility] OTHER CAMPUS REPOSITORY HNO ID: [id number] Author: Philippe (Rn) KATIUSKA Moreau Service: (none) Author Type: Registered Nurse Type: Nursing Progress Note Filed: 02/22/2018 6:12 PM Note Text: Nursing Progress Note Patient Name: Twin Newman Patient Location: [place] [id number] Daily Note:Observed sleeping in bed with S.O.-scheduled for Stress Test this AM. Telemetry maintained without ectopy. 0800-Off floor via w/c to NM 1055-Back to floor via w/c-telemetry maintained without ectopy, SR. Diet ordered-S.O. @ bedside. Refusing AM meds-I need to be discharged AND go to work. Call to hospitalist. 1130-No chg in assessment-Dr. Bowen vs. Patient aware of need to wait for Stress Test results. Anxious for discharge. Eating lunch with S.O. @ bedside. Denies any CP/SOB. Telemetry maintained without ectopy. 1330-No chg in assessment-sleeping in bed with S.O. Telemetry maintained without ectopy. 1530-Patient becoming increasingly agitated waiting on results-requests Dr. Bowen to visit regarding complaints of left sided neck pain. Pacing floors-Dr. Bowen aware. Telemetry maintained without ectopy. 1730-No chg in assessment-Stress Test resulted. Dr. Bowen writing discharge. 1750-Discharge instructions reviewed with patient AND S.O. With adequate knowledge-Dr. Bowen vs 1800-Off floor via ambulatory . This note was completed by: Philippe Moreau RN CBC Collected: 02/22/2018 Status: F Source: [place] 3:05 AM [facility] OTHER CAMPUS REPOSITORY TYPE CODE TESTS RESULT OUT OF REFERENCE UNITS RANGE LAB WBC 3.70-11.00 k/uL WBC 8.56 LAB RBC 4.20-6.00 m/uL RBC 4.75 LAB HGB 13.0-17.0 g/dL Hemoglobin 15.3 LAB HCT 39.0-51.0 % Hematocrit 45.8 LAB MCV 80.0-100.0 fL MCV 96.4 LAB MCH 26.0-34.0 pG MCH 32.2 LAB MCHC 30.5-36.0 g/dL MCHC 33.4 LAB RDWCV 11.5-15.0 % RDW-CV 14.6 LAB PLTCT 150-400 k/uL Platelet Count 250 LAB MPV 9.0-12.7 fL MPV 9.2 Performed By: #### CBC, CMP #### [facility] [address] [facility] [phone] COMP METABOLIC PANEL Collected: 02/22/2018 Status: F Source: [place] 3:05 AM CLINIC OTHER CAMPUS REPOSITORY TYPE CODE TESTS RESULT OUT OF REFERENCE UNITS RANGE LAB TP 6.3-8.0 g/dL Protein, Total 7.7 LAB ALB 3.9-4.9 g/dL Albumin 4.3 LAB CA 8.5-10.2 mg/dL Calcium, Total 10.1 LAB TBIL 0.2-1.3 mg/dL Bilirubin, Total 0.3 LAB ALKP 36-108 U/L Alkaline Phosphatase 72 LAB AST 14-40 U/L AST 14 LAB GLU 74-99 mg/dL Glucose High 287 Result Comment: The [place] [employer] (ADA) provides guidance for cutoff values for fasting glucose and random glucose. The ADA defines fasting as no caloric intake for at least 8 hours. Fas ting plasma glucose results between 100 to 125 mg/dL indicate increased risk for diabetes (prediabetes). Fasting plasma glucose results greater than or equal to 126 mg/dL meet the criteria for diagnosis of diabetes. In the absence of unequivocal hyperglycemia, results should be confirmed by repeat testing. In a patient with classic symptoms of hyperglycemia or hyperglycemic crisis, random plasma glucose results greater than or equal to 200 mg/dL meet the criteria for diagnosis of diabetes. Reference: Standards of Medical Care in Diabetes 2016, [place] [employer]. Diabetes Care. 2016.39(Suppl 1). LAB BUN 9-24 mg/dL BUN 22 LAB CRET 0.73-1.22 mg/dL Creatinine 0.99 LAB NA 136-144 mmol/L Sodium 138 LAB K 3.7-5.1 mmol/L Potassium Low 3.5 LAB CL 97-105 mmol/L Chloride Low 95 LAB CO2 22-30 mmol/L CO2 27 LAB AGAP 9-18 mmol/L Anion Gap 16 LAB ALT 10-54 U/L ALT 15 LAB GFRAA eGFR- Amer. >60 LAB GFRNAA . eGFR-All Other Races >60 Result Comment: eGFR (Estimated GFR) Units of measure: mL/min/1.73 meters squared eGFR is derived from the reexpressed MDRD Study equation using the following parameters: serum creatinine, age, gender and race. The creatinine assay has been calibrated to be traceable to IDMS. An eGFR <60 mL/min/1.73m2 for >3 months is consistent with chronic kidney disease. Refer to KDOQI guidelines for clinical interpretation. In patients with unstable renal function, e.g. those with acute kidney injury, the eGFR may not accurately reflect actual GFR. Performed By: #### CBC, CMP #### [facility] [address] [place] [address] TROPONIN T Collected: 02/22/2018 Status: F Source: [place] 3:04 AM [facility]INIC OTHER [place] REPOSITORY TYPE CODE TESTS RESULT OUT OF REFERENCE UNITS RANGE LAB TROPT 0.000-0.029 ng/mL Troponin T <0.010 Performed By: #### RIVAS #### [facility] [address] [place] [address] TROPONIN T Collected: 02/21/2018 Status: F Source: [place] 10:50 PM [facility] OTHER [place] REPOSITORY TYPE CODE TESTS RESULT OUT OF REFERENCE UNITS RANGE LAB TROPT 0.000-0.029 ng/mL Troponin T <0.010 Performed By: #### RIVAS #### [facility] [address] [place] [address] NURSING PROG Observed: 02/21/2018 Status: COMPLETED Source: [place] 9:52 PM [facility]IC OTHER [place] REPOSITORY HNO ID: [id number] Author: Brittanie (Rn) KATIUSKA Mcleod Service: (none) Author Type: Registered Nurse Type: Nursing Progress Note Filed: 02/22/2018 4:36 AM Note Text: Nursing Progress Note Patient Name: Twin Newman Patient Location: [place] [id number] 2151- Patient admitted to floor from ED with complaints of chest pain. Patient complains of left sided chest/ Left arm/Left side of neck pain. 04/09. Patient declines pain medication at this time. States medications never help. Patient anxious about hospital stay. Patient wants to smoke. Nicotine patch was offered. Patient declined. Lung sounds are diminished in all lobes. Right lower lobe crackles. Patient is on room air. Respirations are unlabored. Patient complains of feeling short of breath. Respiratory came to the room to provide CPAP for sleep. Patient refused the CPAP and states he never wears it at home. Patient is ordered to have a nuclear stress test in the morning. Patient aware that he will be NPO after midnight. Patient takes ambien as a sleep aid. He will call staff when he is ready for it.Call light in reach. 2300- Patients significant other brought in food for patient to eat before midnight. 0100- Patient medicated with PRN pain medications for complaints of left shoulder pain. Patient states it is aching. Patient sitting up in chair resting his arms and head on the bedside table. Patient stated that it makes the pain in his shoulder feel better. Patient denies having any injury to his left shoulder. Patient continues to have a non productive cough. Tele unchanged at NSR. Troponin at 2200 negative. Call light in reach. 0140- Patient is sitting in chair asleep resting his head on bedside table with a pillow. Respirations are even and unlabored. No s/s of distress. 0245- Patient awake. Complaining of Left shoulder pain. Hospitalist paged to update on patients complaint of ineffective pain relief. Physician will not give any further pain medication orders at this time. And will update at 0400 with patients pain level. 0300- Patient stated he will leave if he does not receive pain medication. He states he can get a stress test done somewhere else. Dr. Ortiz aware and came to see the patient. Patient is staying as of right now. 0430-Patient laying in bed with his eyes closed. Respirations even and unlabored. No s/s of distress. Call light in reach. Significant other at bedside. This note was completed by: Yvonne Mcleod RN ED NOTE Observed: 02/21/2018 Status: COMPLETED Source: [place] 9:15 PM [facility] REPOSITORY HNO ID: [id number] Author: Anika MaldonadoRn) KATIUSKA Levine Service: (none) Author Type: Registered Nurse Type: ED Notes Filed: 02/21/2018 9:24 PM Note Text: pt and updated on plan of care HISTORY PHYSICAL Observed: 02/21/2018 Status: COMPLETED Source: [place] 8:50 PM [facility] REPOSITORY HNO ID: [id number] Author: Janes Mendez (Pa) Service: General Internal Medicine Author Type: Physician Metal Flow Coordinator Type: HANDP Filed: 02/21/2018 10:33 PM Note Text: Attestation signed by Meli Jarvis at 02/25/2018 5:53 PM [facility] [place] STAFF PHYSICIAN NOTE OF PERSONAL INVOLVEMENT IN CARE I have reviewed the note HnP obtained and documented by the Janes Peace and I personally participated in the zhou components. I have discussed the case and management of the patient's care. I agree with the assessment and plan as mentioned in the note. HOSPITAL MEDICINE HISTORY AND PHYSICAL EXAM PATIENT NAME: Twin Newman SERVICE DATE: 02/21/2018 SERVICE TIME: 8:51 PM Primary Care Physician: Vadim Gutierrez MD NIGHT COVERAGE Page [phone] for any questions between 5.30p-7.30a ASSESSMENT AND PLAN Active Hospital Problems Diagnosis - Chest pain Likely muscular in nature but pt does have risk factors HTN, HLD, obesity, smoker, Fam Hx of cardiac arrest in 40s-50s. HStrop 16, 17 on repeat. RIVAS <0.010, CK MB wnl, BNP 111. EKG NSR without ST changes or TWI. Pain is reproducible. Heart score 4. Cycle trop Tele toradol lexiscan - SOB (shortness of breath) Possible URI induced bronchospasm vs COPD (undiagnosed) States he has had PFTs in past that were unremarkable. CTA chest at [facility] last night: NAP. CXR tonight NAP. Solumedrol, duoneb, mucinex. SUBJECTIVE CHIEF COMPLAINT: CP HPI: This is a 53 year old male with PMHx HTN, HLD, obesity, smoker, h/o DVT, CECILY who presents with CP and SOB. The SOB has been ongoing for 4 days, has had small amount of brown sputum. Denies fever, minimal cough. CP started last night, located over xiphoid, intermittent lasting 3-4 minutes, also in left axilla and neck. Denies any increased activity/exercise. He was also seen for last night at [facility] for these symptoms, trop was 0.017, CTA chest no evidence of PE or aortic dissection, no infiltrate. He states he had a stress test in 2016 that was negative. He has a family history of cardiac arrest in 40-50s. Pt states he would be unable to complete treadmill stress test d/t bad hips. Pt non-compliant with CPAP. HStrop 16, 17 on repeat. RIVAS <0.010, CK MB wnl, BNP 111. EKG: NSR, no ST changes. VSS afebrile, no leukocytosis. CXR: NAP. PAST MEDICAL HISTORY: PAST MEDICAL HISTORY Diagnosis Date - Abdominal pain, epigastric - Abdominal pain, unspecified site - Anemia - Depressive disorder, not elsewhere classified - Difficult airway 02/05/2017 could not intubate could not ventilate - Difficult intubation 02/05/2017 - DVT (deep venous thrombosis) (HCC) 11/27/12 of right calf - Esophageal reflux - Gallbladder polyp - Hyperlipidemia 2011 - Hypertension - Insomnia - MGUS (monoclonal gammopathy of unknown significance) - Nausea AND vomiting - CECILY (obstructive sleep apnea) 01/25/2015 - Snoring - Stroke (HCC) - Tobacco use disorder - Transient ischemic attack (TIA) - Unspecified essential hypertension PAST SURGICAL HISTORY: PAST SURGICAL HISTORY Procedure Laterality Date - CARPAL TUNNEL Bilateral 2016 - CHOLECYSTECTOMY 04/02/2017 laparoscopic cholecystectomy with cholangiograms R [facility] - COLONOSCOP W/ OR W/O [facility] SPEC Colonoscopy - COLONOSCOPY 01/02/2017 - EGD W/O [facility] SPECIMEN W/BX 04/04/07 - EGD W/O OR W/BRUSH/WASH 01/03/2013 EGD - G-ESOPH REFLX TST W/ELECTROD 04/04/07 - PAST SURGICAL HISTORY OF excision lymph node - PAST SURGICAL HISTORY OF vasectomy - PAST SURGICAL HISTORY OF 2009 left knee surgery - PAST SURGICAL HISTORY OF 2011 right foot surgery - PAST SURGICAL HISTORY OF Left 2016 knee surgery, fillers used FAMILY HISTORY: FAMILY HISTORY Problem Relation Age of Onset - Cancer Mother kidney - Cancer Father brain - Cancer Brother testicle - Cancer Sister non hodgkins lymphoma SOCIAL HISTORY: Social History Substance Use Topics - Smoking status: Current Every Day Smoker Packs/day: 0.50 Years: 30.00 Types: Cigarettes Start date: 12/21/1986 - Smokeless tobacco: Never Used - Alcohol use No MEDICATIONS: Reviewed ALLERGIES: ALLERGIES Allergen Reactions - Flexeril [Cyclobenz* GI Upset - Tramadol GI Upset - Vicodin [Hydrocodon* GI Upset REVIEW OF SYSTEM: PAIN ASSESSMENT: Negative for pain, history of chronic pain, or current treatment for a chronic pain condition. GENERAL: No weight loss, malaise or fevers. HEENT: Negative for frequent or significant headaches, No changes in hearing or vision, no nose bleeds or other nasal problems NECK: Negative for lumps, goiter, pain and significant neck swelling RESPIRATORY: +SOB CARDIOVASCULAR: +CP GI: No nausea, vomiting, or diarrhea : No history of dysuria, frequency or incontinence. MUSCULOSKELETAL: Negative for joint pain or swelling, back pain or muscle pain. SKIN: Negative for lesions, rash, and itching. PSYCH: Negative for sleep disturbance, mood disorder and recent psychosocial stressors. HEMATOLOGY/LYMPHOLOGY: Negative for prolonged bleeding, bruising easily or swollen nodes. ENDOCRINE: Negative for cold or heat intolerance, polyuria, polydipsia and goiter. NEURO: No history of headaches, syncope, paralysis, seizures or tremors OBJECTIVE PHYSICAL EXAM: BP 172/120 Pulse 62 Temp (Src) 98.2 (Oral) Resp 16 Ht 5' 7 (1.70m) Wt 235 lb (106.6kg) SpO2 97% BMI 36.80 kg/(m2). GENERAL: alert, no distress, cooperative SKIN: Skin color, texture, turgor normal. No rashes or lesions. NECK: no jugulovenous distention, supple BACK: Back symmetric, Normal curvature, ROM normal, No CVAT. LUNGS: Lungs clear to auscultation. Good diaphragmatic excursion. CARDIAC: TTP over xiphoid, axilla, neck. RRR; no rubs, murmurs, or gallops ABDOMEN: Abdomen soft, non-tender. BS normal. No masses or organomegaly. EXTREMITIES: Extremities normal. No deformities, edema, clubbing or skin discoloration., No ulcers NEURO: Sensation grossly intact., Cranial nerves II-XII intact DATA: Diagnostic tests reviewed for today's visit: Most recent labs Most recent imaging Most recent EKG CBC: WBC 7.60 02/21/2018 Hemoglobin 14.4 02/21/2018 Hematocrit 43.6 02/21/2018 Platelet Count 224 02/21/2018 CMP: Sodium 141 02/21/2018 Potassium 3.5 02/21/2018 BUN 19 02/21/2018 Creatinine, Whole Blood (iSTAT) 0.97 02/21/2018 Glucose 100 02/21/2018 Chloride 99 02/21/2018 CO2 29 02/21/2018 VTE Prophylaxis: Early Ambulation Disposition: Home Plan of care discussed with: Patient, Family/Other: and RN SIGNATURE: Janes Mendez PA-C DATE: February 21, 2018 TIME: 8:51 PM ED NOTE Observed: 02/21/2018 Status: COMPLETED Source: [place] 8:30 PM [facility]INIC OTHER CAMPUS REPOSITORY HNO ID: [id number] Author: Anika MaldonadoRn) KATIUSKA Levine Service: (none) Author Type: Registered Nurse Type: ED Notes Filed: 02/21/2018 9:23 PM Note Text: PA in room to talk with pt. ED PROV NOTE Observed: 02/21/2018 Status: COMPLETED Source: [place] 8:22 PM [facility] OTHER CAMPUS REPOSITORY HNO ID: [id number] Author: Kacie Marx (Pa) Service: (none) Author Type: Physician Metal Flow Coordinator Type: ED Provider Notes Filed: 02/21/2018 8:53 PM Note Text: Attestation signed by Shane Blackburn MD at 02/21/2018 10:34 PM Attending Note I have personally performed a face to face assessment of the patient and?have reviewed the PA/STORE HOST note.?My zhou findings include: History - Mr. Newman is a pleasant 53 yo M smoker w/ HTN (sometimes quite high today is actually good) AND high cholesterol, no DM, does have early MT in family, [facility] CT ok 5 d ago when dyspnea (worse w/ exertion) started. Baseline 2 pillow orthopnea and BLE. Exam - wheezing throughout, no increased WOB Assessment/Plan - Mr. Newman is a pleasant 53 yo M presenting today w/ ? COPD or CHF (? HTN cardiomyopathy), r/o ACS. Will give nebs, steroids, reassess. ? ECG NSR @ 61 bpm no STEMI normal intervals and axis. ? Hs trop mildly up but similar on repeat, admit overnight to r/o MT. ? Other additions or changes: None ? Signature: Shane Blackburn MD Date: 02/21/2018 Time: 7:35 PM ED Provider Note Patient Name: Twin Newman SERVICE DATE: 02/21/18 History Patient presents with: Chest Pain: started at [facility] for same Shortness of Breath: getting worse Arm Pain: started about 0300/0400 after he got home from [facility] 53-year-old gentleman, with a history of depression, hyperlipidemia, hypertension, obesity, GERD, history of DVT, one pack per day smoker, TIA, presents for shortness of breath and chest pain. He said shortness of breath for 4 days. Was seen at [facility] last night and evidently had normal labs, EKG and a CT. Was given a breathing treatment and felt better and they told him to breathe new air go home. In the middle of the night he started having chest pain. It is been constant radiating to the left arm. No personal history of MT and he had a normal stress test in 2016. There is a family history of MT with several family members a few of which in her late 40s, early 50s. History provided by: Patient and spouse PAST MEDICAL HISTORY Diagnosis Date - Abdominal pain, epigastric - Abdominal pain, unspecified site - Anemia - Depressive disorder, not elsewhere classified - Difficult airway 02/05/2017 could not intubate could not ventilate - Difficult intubation 02/05/2017 - DVT (deep venous thrombosis) (HCC) 11/27/12 of right calf - Esophageal reflux - Gallbladder polyp - Hyperlipidemia 2011 - Hypertension - Insomnia - MGUS (monoclonal gammopathy of unknown significance) - Nausea AND vomiting - CECILY (obstructive sleep apnea) 01/25/2015 - Snoring - Stroke (HCC) - Tobacco use disorder - Transient ischemic attack (TIA) - Unspecified essential hypertension PAST SURGICAL HISTORY Procedure Laterality Date - CARPAL TUNNEL Bilateral 2015 - CHOLECYSTECTOMY 04/02/2017 laparoscopic cholecystectomy with cholangiograms R [facility] - COLONOSCOP W/ OR W/O [facility] SPEC Colonoscopy - COLONOSCOPY 01/02/2017 - EGD W/O [facility] SPECIMEN W/BX 04/04/07 - EGD W/O OR W/BRUSH/WASH 01/03/2013 EGD - G-ESOPH REFLX TST W/ELECTROD 04/04/07 - PAST SURGICAL HISTORY OF excision lymph node - PAST SURGICAL HISTORY OF vasectomy - PAST SURGICAL HISTORY OF 2009 left knee surgery - PAST SURGICAL HISTORY OF 2011 right foot surgery - PAST SURGICAL HISTORY OF Left 2016 knee surgery, fillers used FAMILY HISTORY Problem Relation Age of Onset - Cancer Mother kidney - Cancer Father brain - Cancer Brother testicle - Cancer Sister non hodgkins lymphoma Social History Social History Main Topics - Smoking status: Current Every Day Smoker Packs/day: 0.50 Years: 30.00 Types: Cigarettes Start date: 12/21/1986 - Smokeless tobacco: Never Used - Alcohol use No - Drug use: No - Sexual activity: Yes Partners: Female control/ protection: Surgical ALLERGIES Allergen Reactions - Flexeril [Cyclobenz* GI Upset - Tramadol GI Upset - Vicodin [Hydrocodon* GI Upset Review of Systems Constitutional: Negative for chills and fever. HENT: Negative for congestion and sinus pressure. Eyes: Negative for photophobia and visual disturbance. Respiratory: Positive for shortness of breath. Negative for cough and wheezing. Cardiovascular: Positive for chest pain. Negative for palpitations and leg swelling. Gastrointestinal: Negative for abdominal pain, constipation, diarrhea, nausea and vomiting. Genitourinary: Negative for difficulty urinating and dysuria. Musculoskeletal: Negative for back pain. Skin: Negative for rash. Neurological: Negative for dizziness, weakness, light-headedness, numbness and headaches. Hematological: Negative. Psychiatric/Behavioral: Negative. Physical Exam BP 143/78 Pulse 68 Temp (Src) 98.2 (Oral) Resp 18 Ht 5' 7 (1.70m) Wt 235 lb (106.6kg) SpO2 98% BMI 36.80 kg/(m2). Physical Exam Constitutional: He is oriented to person, place, and time. He appears well-developed and well-nourished. No distress. Well appearing male in NAD HENT: Head: Normocephalic and atraumatic. Eyes: Conjunctivae are normal. Neck: Normal range of motion. Neck supple. Cardiovascular: Normal rate, regular rhythm and normal heart sounds. Pulmonary/Chest: Effort normal. He has wheezes. Abdominal: Soft. Bowel sounds are normal. There is no tenderness. Musculoskeletal: He exhibits no edema. Neurological: He is alert and oriented to person, place, and time. No cranial nerve deficit. Skin: Skin is warm and dry. Psychiatric: He has a normal mood and affect. Nursing note and vitals reviewed. Chest Pain Pathway History of Present Symptoms: Moderate Risk ECG Findings: Non Ischemic ECG Number of Risk Factors: 6 Initial High Sensitivity Troponin: 12 - 52 ng/l Total Heart Score: 4 Based on the above information, patient is at moderate risk for a Major Adverse Cardiac Event at 30 days Diagnostic Testing ED Labs Ordered and Reviewed CBC + DIFF - Abnormal; Notable for the following: Result Value Ref Range MPV 8.8 (*) 9.0 - 12.7 fL Abs Brule 1.04 (*) <0.87 k/uL All other components within normal limits COMP METABOLIC PANEL - Abnormal; Notable for the following: AST 13 (*) 14 - 40 U/L Glucose 100 (*) 74 - 99 mg/dL Potassium 3.5 (*) 3.7 - 5.1 mmol/L All other components within normal limits HIGH SENSITIVITY TROPONIN T - Abnormal; Notable for the following: RIVAS High Sensitivity 16 (*) <12 ng/L All other components within normal limits HIGH SENSITIVITY TROPONIN T - Abnormal; Notable for the following: RIVAS High Sensitivity 17 (*) <12 ng/L All other components within normal limits CK TOTAL AND CK-MB TROPONIN T MAGNESIUM BLD NT PRO BNP EKG: NSR without ST changes, without ectopy CXR: without cardiomegaly or effusion Procedures Medical Decision Making MDM 8:24 PM patient presents to the ED with chest pain shortness of breath. See history of present illness for further detail. Vitals are stable. He is wheezy. Given breathing treatments. His heart score is 4 without troponins. He is given aspirin. Awaiting remainder of cardiac rule out 8:51 PM patient's troponin 16 and repeat 17. He is comfortable staying here. EKG without any ST elevation. I spoke with the hospitalist who will happily watch the patient overnight. Patient updated on plan. Stable at this time ED Course / Clinical Impression Clinical Impressions as of Feb 21 2022 Chest pain, unspecified type SOB (shortness of breath) Plan The patient was ADMITTED TO: tele. Case discussed with admitting physician, Dr. Jarvis. Condition at time of disposition: stable SIGNATURE: AUGUST Smith (Pa) 02/21/182052 Shane Blackburn MD 02/21/182233 ED NOTE Observed: 02/21/2018 Status: COMPLETED Source: [place] 8:13 PM [facility] OTHER [place] REPOSITORY HNO ID: [id number] Author: Anika MaldonadoRn) KATIUSKA Levine Service: (none) Author Type: Registered Nurse Type: ED Notes Filed: 02/21/2018 8:13 PM Note Text: trop re-drawn and sent. HIGH SENS TROPONIN T Collected: 02/21/2018 Status: F Source: [place] 8:08 PM [facility] OTHER CAMPUS REPOSITORY TYPE CODE TESTS RESULT OUT OF REFERENCE UNITS RANGE LAB HSTN <12 ng/L High High Sensitivity RIVAS 17 Result Comment: When assessing risk for acute coronary syndromes: In patients undergoing blood draw greater than or equal to 2 hours from symptom onset, with history of very low to moderate risk and non-ischemic ECG, an initial hs-Troponin T less than 12 ng/L AND a 1 hour delta hs-Troponin T less than 3 ng/L should be considered very low risk for 30 day MACE. Performed By: #### HSTNT #### [facility] [address] [facility] [phone] XR CHEST 1V FRONTAL Observed: 02/21/2018 Status: F Source: [facility] 7:37 PM CLINIC OTHER CAMPUS REPOSITORY * * *Final Report* * * DATE OF EXAM: Feb 21 2018 7:37PM MDX [id number] - XR CHEST 1V FRONTAL PORT / PROCEDURE REASON: Chest pain or SOB, pleurisy or effusion suspected * * * * Physician Interpretation * * * * EXAMINATION: CHEST RADIOGRAPH (PORTABLE SINGLE VIEW AP) Exam Date/Time: 02/21/2018 7:37 PM Clinical History: Chest pain or SOB, pleurisy or effusion suspected MQ: [id number]_5 Comparison: 07/13/2016 RESULT: See impression. IMPRESSION: Lines, tubes, and devices: None. Lungs and pleura: Lungs are clear. No evidence of pulmonary vascular redistribution or pleural effusion. Cardiomediastinal silhouette: Stable cardiomediastinal silhouette. Assembly Adjuster: DIDI Transcribe Date/Time: Feb 21 2018 7:46P Dictated by : KALE ROGERS MD This examination was interpreted and the report reviewed and electronically signed by: KALE ROGERS MD on Feb 21 2018 7:47PM EST [id number] ED NOTE Observed: 02/21/2018 Status: COMPLETED Source: [place] 7:34 PM CLINIC OTHER CAMPUS REPOSITORY HNO ID: [id number] Author: Shane Blackburn MD Service: (none) Author Type: Physician Type: ED Notes Filed: 02/21/2018 10:33 PM Note Text: Attending Note I have personally performed a face to face assessment of the patient and have reviewed the PA/STORE HOST note. My zhou findings include: History - Mr. Newman is a pleasant 53 yo M smoker w/ HTN (sometimes quite high today is actually good) AND high cholesterol, no DM, does have early MT in family, [facility] CT ok 5 d ago when dyspnea (worse w/ exertion) started. Baseline 2 pillow orthopnea and BLE. Exam - wheezing throughout, no increased WOB Assessment/Plan - Mr. Newman is a pleasant 53 yo M presenting today w/ ? COPD or CHF (? HTN cardiomyopathy), r/o ACS. Will give nebs, steroids, reassess. ECG NSR @ 61 bpm no STEMI normal intervals and axis. Hs trop mildly up but similar on repeat, admit overnight to r/o MT. Other additions or changes: None Signature: Shane Blackburn MD Date: 02/21/2018 Time: 7:35 PM ED NOTE Observed: 02/21/2018 Status: COMPLETED Source: [place] 7:32 PM [facility] REPOSITORY HNO ID: [id number] Author: Anika (Rn) KATIUSKA Levine Service: (none) Author Type: Registered Nurse Type: ED Notes Filed: 02/21/2018 7:32 PM Note Text: XR AT BEDSIDE TROPONIN T Collected: 02/21/2018 Status: F Source: [place] 7:07 PM [facility] REPOSITORY TYPE CODE TESTS RESULT OUT OF REFERENCE UNITS RANGE LAB TROPT 0.000-0.029 ng/mL Troponin T <0.010 Performed By: #### RIVAS #### [facility] [address] [place] [address] HIGH SENS TROPONIN T Collected: 02/21/2018 Status: F Source: [place] 7:07 [facility] OTHER [place] REPOSITORY TYPE CODE TESTS RESULT OUT OF REFERENCE UNITS RANGE LAB HSTN <12 ng/L High High Sensitivity RIVAS 16 Result Comment: When assessing risk for acute coronary syndromes: In patients undergoing blood draw greater than or equal to 2 hours from symptom onset, with history of very low to moderate risk and non-ischemic ECG, an initial hs-Troponin T less than 12 ng/L AND a 1 hour delta hs-Troponin T less than 3 ng/L should be considered very low risk for 30 day MACE. Performed By: #### HSTNT #### [facility] [address] [place] [address] CK, TOTAL AND CKMB Collected: 02/21/2018 Status: F Source: [place] 7:06 PM [facility] OTHER [place] REPOSITORY TYPE CODE TESTS RESULT OUT OF REFERENCE UNITS RANGE LAB CK 51-298 U/L CK 124 LAB MB <7.7 ng/mL MB 2.8 LAB CKMBRI 0.0-4.0 % CK MB % 2.3 Performed By: #### CKCKMB #### [facility] [address] [place] [address] CBC AND DIFFERENTIAL Collected: 02/21/2018 Status: F Source: [place] 7:05 PM [facility] OTHER CAMPUS REPOSITORY TYPE CODE TESTS RESULT OUT OF REFERENCE UNITS RANGE LAB WBC 3.70-11.00 k/uL WBC 7.60 LAB RBC 4.20-6.00 m/uL RBC 4.49 LAB HGB 13.0-17.0 g/dL Hemoglobin 14.4 LAB HCT 39.0-51.0 % Hematocrit 43.6 LAB MCV 80.0-100.0 fL MCV 97.1 LAB MCH 26.0-34.0 pG MCH 32.1 LAB MCHC 30.5-36.0 g/dL MCHC 33.0 LAB RDWCV 11.5-15.0 % RDW-CV 14.6 LAB PLTCT 150-400 k/uL Platelet Count 224 LAB MPV 9.0-12.7 fL Low MPV 8.8 LAB ANEUT % Neut% 51.0 LAB AANEUT 1.45-7.50 k/uL Abs Neut 3.88 LAB ALYMP % Lymph% 32.5 LAB AALYMP 1.00-4.00 k/uL Abs Lymph 2.47 LAB AMONO % Brule% 13.7 LAB AAMONO <0.87 k/uL Abs Brule High 1.04 LAB AEOS % Eosin% 2.4 LAB AAEOS <0.46 k/uL Abs Eosin 0.18 LAB ABASO % Baso% 0.4 LAB AABASO <0.11 k/uL Abs Baso 0.03 Performed By: #### CBCDIF, CMP, MG1 #### [facility] [address] [place] [address] COMP METABOLIC PANEL Collected: 02/21/2018 Status: F Source: [place] 7:05 PM [facility] OTHER [place] REPOSITORY TYPE CODE TESTS RESULT OUT OF REFERENCE UNITS RANGE LAB TP 6.3-8.0 g/dL Protein, Total 7.2 LAB ALB 3.9-4.9 g/dL Albumin 4.1 LAB CA 8.5-10.2 mg/dL Calcium, Total 9.7 LAB TBIL 0.2-1.3 mg/dL Bilirubin, Total 0.2 LAB ALKP 36-108 U/L Alkaline Phosphatase 70 LAB AST 14-40 U/L Low AST 13 LAB GLU 74-99 mg/dL Glucose High 100 Result Comment: The [place] Diabetes [employer] (ADA) provides guidance for cutoff values for fasting glucose and random glucose. The ADA defines fasting as no caloric intake for at least 8 hours. Fas ting plasma glucose results between 100 to 125 mg/dL indicate increased risk for diabetes (prediabetes). Fasting plasma glucose results greater than or equal to 126 mg/dL meet the criteria for diagnosis of diabetes. In the absence of unequivocal hyperglycemia, results should be confirmed by repeat testing. In a patient with classic symptoms of hyperglycemia or hyperglycemic crisis, random plasma glucose results greater than or equal to 200 mg/dL meet the criteria for diagnosis of diabetes. Reference: Standards of Medical Care in Diabetes 2016, [place] [employer]. Diabetes Care. 2016.39(Suppl 1). LAB BUN 9-24 mg/dL BUN 19 LAB CRET 0.73-1.22 mg/dL Creatinine 0.97 LAB NA 136-144 mmol/L Sodium 141 LAB K 3.7-5.1 mmol/L Potassium Low 3.5 LAB CL 97-105 mmol/L Chloride 99 LAB CO2 22-30 mmol/L CO2 29 LAB AGAP 9-18 mmol/L Anion Gap 13 LAB ALT 10-54 U/L ALT 12 LAB GFRAA eGFR- Amer. >60 LAB GFRNAA . eGFR-All Other Races >60 Result Comment: eGFR (Estimated GFR) Units of measure: mL/min/1.73 meters squared eGFR is derived from the reexpressed MDRD Study equation using the following parameters: serum creatinine, age, gender and race. The creatinine assay has been calibrated to be traceable to IDMS. An eGFR <60 mL/min/1.73m2 for >3 months is consistent with chronic kidney disease. Refer to KDOQI guidelines for clinical interpretation. In patients with unstable renal function, e.g. those with acute kidney injury, the eGFR may not accurately reflect actual GFR. Performed By: #### CBCDIF, CMP, MG1 #### [facility] [address] [place] [address] MAGNESIUM Collected: 02/21/2018 Status: F Source: [place] 7:05 PM CLINIC OTHER CAMPUS REPOSITORY TYPE CODE TESTS RESULT OUT OF REFERENCE UNITS RANGE LAB MG 1.7-2.3 mg/dL Magnesium 2.1 Performed By: #### CBCDIF, CMP, MG1 #### [facility] [address] [facility] [phone] NT PRO BNP Collected: 02/21/2018 Status: F Source: [place] 7:05 PM CLINIC OTHER [place] REPOSITORY TYPE CODE TESTS RESULT OUT OF REFERENCE UNITS RANGE LAB PBNP <125 pg/mL PRO B Natr 111 Peptide Performed By: #### NTBNP #### [facility] [address] [facility] [phone] ED NOTE Observed: 02/21/2018 Status: COMPLETED Source: [place] 6:46 PM [facility] OTHER CAMPUS REPOSITORY HNO ID: [id number] Author: Cristina (Rn) KATIUSKA Leiva Service: (none) Author Type: Registered Nurse Type: ED Notes Filed: 02/21/2018 6:49 PM Note Text: Patient presents with c/o chest pain, arm pain and sob. Pain began on Sunday and getting worse, was seen at [facility] yesterday for same. Did blood work, CT scan, ekg and he had breathing treatments and sent home with inhailer EMERGENCY DEPARTMENT Observed: 02/21/2018 Status: F Source: [place] SUMMARY 12:31 AM [facility] REPOSITORY [facility] Medical Records Department [address] [place] [address] Emergency Department Summary 02/20/18 2352 MR#: [id number] Acct: [id number] Name: TWIN NEWMAN Rep #: [id number] : 1965 53 From: Pj Wiseman DO PCP: Vadim Gutierrez MD Status: REG ER - ER Visit Summary Date of Service: 02/20/18 Chief Complaint: Shortness of breath History of Present Illness: The patient is a 53 M who presents with shortness of breath that became worse today. Patient states he was having some pain in his chest and shortness of breath with any exertion today. Patient states he can only walk a few feet before he becomes short of breath and gets chest pain. Patient describes his pain is aching. Patient states the pain is over the substernal area. Patient admits to some lightheadedness and a cough. Patient denies any nausea or vomiting. Patient denies any diaphoresis. Patient denies any palpitations. Past medical history includes hypertension and hypercholesterolemia. Patient is a smoker. Patient states she does have a history of prior DVT. Physical Examination: Vital signs show an elevated blood pressure of 188/113. The remaining vital signs are stable. Patient is resting comfortably on the bed. Patient is in no acute distress. Oral mucosa is pink and moist. Neck is supple. Trachea is midline. There is no JVD noted. Heart was regular rate and rhythm. Lungs are clear and equal bilaterally. There is good respiratory effort noted. Abdomen is soft. Bowel sounds are normal. There is no tenderness. Extremities are intact. There is 1+ edema lower extremities bilaterally. There is no calf tenderness noted. Cranial nerves II through XII are intact. There are no focal motor or sensory deficits noted. The remaining physical exam is within normal limits. Test Results: EKG showed normal sinus rhythm with a rate of 74. There are no acute ST or T-wave changes. There are no changes compared to previous EKG dated 02/13/2011. CBC was within normal limits. Basic metabolic profile showed a slightly elevated glucose of 132. Troponin was normal at 0.017. CTA of the chest was obtained. There is no evidence of pulmonary embolism or aortic dissection. There is no infiltrate noted. Emergency Department Course and Treatment: Patient was given an albuterol aerosol here. Patient was ambulated on room air with a pulse oximeter. Patient remained 92-94% on room air while ambulating. Patient was given a prescription for an albuterol inhaler. Patient was instructed to follow-up with his primary care physician in 7-10 days. Patient understood and was agreeable with the plan. All questions were answered. Disposition: Discharged home Impression: Dyspnea This note was generated with Fleksy dictation software. It may contain incorrect words, spelling, and punctuation that were not noted in review of the chart prior to signing ED Disposition - Plan for ED Patient: Disposition: Home or Assisted Living Chief Complaint: Chest Pain Diagnosis: Dyspnea Instructions: ED Chest Pain Atypical Unkn Cause, ED Dyspnea Shortness of Breath Prescriptions: Albuterol Inhaler [Ventolin Hfa] 2 puff INHALATION Q4H PRN PRN #1 inhaler PRN Reason: Wheezing Referrals: Vadim Gutierrez MD [Primary Care Provider] - What to do if you have Problems For any increased pain, shortness of breath, bleeding, nausea or vomiting, chest pain, or any unexpected problems, contact your Primary Care Provider. Call [facility] ([phone]) or report to the closest Emergency Room. Call 911 if necessary. 02/21/18 0031 <Electronically signed by Pj Wiseman DO> Date Pj Wiseman DO Cosigner Signature (If Indicated): Date CC: Vadim Gutierrez MD CTA CHEST W/WO Observed: 02/20/2018 Status: F Source: [place] CONTRAST 9:57 PM [facility] REPOSITORY [facility] Imaging Services [address] [place] [place] [address] CTA Chest W/WO Contrast MR#: [id number] Acct: [id number] Name: TWIN NEWMAN Rep #: [id number] : 1965 M 53 From: Abelardo Browne MD PCP: Vadim Gutierrez MD Status: REG ER Study: CTA Chest W/WO Contrast Date of Exam: 02/20/18 Exam# [id number] Ordering Dr: Pj Wiseman DO STUDY: CTA CHEST REASON FOR EXAM: Male, 53 years old. Chest pain RADIATION DOSAGE (If Supplied By Facility): CTDIvol = ( 18.27 ) mGy, DLP = ( 762.08 ) mGycm TECHNIQUE: The examination was performed with the intravenous administration of 100 ml of Isovue 370 contrast material. Post-processing of the angiographic images was performed, with multiplanar reformation and 3D reconstruction. Individualized dose optimization techniques were used for this CT. COMPARISON: None. FINDINGS: There is limited enhancement of the main pulmonary artery and right and left pulmonary arteries. There is limited enhancement of the bilateral peripheral pulmonary arteries. There is no demonstrated pulmonary embolism. Normal thoracic aorta and visualized great vessels. There is no demonstrated aortic dissection. There are calcifications of the coronary arteries. Normal mediastinum. Normal hilar regions. Normal visualized trachea and bronchi. The lungs are well expanded. Normal pulmonary parenchyma. Normal pleura. Normal chest wall structures. There are degenerative changes of thoracic spine. There is hepatomegaly with diffuse hepatic enlargement. CT/CTA Chest W/WO Contrast IMPRESSION: CTA chest examination, without a demonstrated pulmonary embolism or arterial dissection. Electronically Signed: Abelardo Browne MD at 23:38 EDT , Service support , CC: Pj Wiseman DO; Vadim Gutierrez MD Assembly Adjuster: Signed CBC W/DIFF, AUTOMATED Collected: 02/20/2018 Status: F Source: [place] 9:35 PM [facility] REPOSITORY TYPE CODE TESTS RESULT OUT OF RANGE REFERENCE UNITS LAB L100.1000 4.4-11.0 K/mm3 Normal WBC 7.9 LAB L100.1200 4.6-6.2 M/mm3 Low RBC 4.43 LAB L100.1300 13.0-16.5 g/dl Normal HGB 14.3 LAB L100.1400 40-54 % Normal HCT 42.5 LAB L100.1500 80-94 fL High MCV 95.9 LAB L100.1600 27.0-32.0 pg High MCH 32.3 LAB L100.1700 32-36 g/gl Normal MCHC 33.6 LAB L100.1810 11.6-14.6 % Normal RDW CV 14.3 LAB L100.1820 35.1-43.9 fl High RDW SD 50.6 LAB L100.1900 150-450 K/mm3 Normal PLT 229 LAB L100.2000 6.2-12.0 fl Normal MPV 9.0 LAB L100.2100 47-70 % Normal NEUT% 47.3 LAB L100.2200 19-41 % Normal LY% 38.2 LAB L100.2300 0-10 % High MONO% 11.2 LAB L100.2400 0-5 % Normal EO% 2.8 LAB L100.2500 0-1 % Normal BASO% 0.4 LAB L100.2550 0.0-0.9 % Normal IM GRAN % 0.100 Result Comment: IG% - Immature Granulocytes (promyelocytes, myelocytes and metamyelocytes) > 1% indicates that a LEFT SHIFT is Present. LAB L100.2620 2.0-7.7 X10 3/uL Normal Absolute Neut 3.7 LAB L100.2720 0.83-4.51 X10 3/ul Normal Absolute Lymph 3.01 Performed By: #### L100.0100 #### [facility] [address] [place], [address] BASIC METABOLIC Collected: 02/20/2018 Status: F Source: [place] PROFILE (BMP) 9:35 PM [facility] REPOSITORY TYPE CODE TESTS RESULT OUT OF RANGE REFERENCE UNITS LAB L501.0100 74-106 mg/dL High GLU 132 Result Comment: Fasting Glucose result greater than or equal to 126 mg/dL suggests DIABETES MELLITUS per A.D.A. criteria. Please note revised GLUCOSE reference range effective 2017. LAB L501.1000 7-18 mg/dL High BUN 19 LAB L501.1100 0.70-1.30 mg/dL Normal CREAT,SERUM 1.20 Result Comment: The validity of the calculated GFR AND GFRAA in patients over 70 years has not been determined. Clinical correlation is essential. LAB L501.1110 >60 mL/min Normal EST GFR 67 Result Comment: Non- GFR Calc LAB L501.1115 >60 mL/min Normal EST GFR - AA 81 Result Comment: GFR Calc LAB L501.1255 ml/min Normal Estimated CRCL 66.56 LAB L501.1300 10-20 RATIO Normal BUN/CRE 15.8 LAB L501.2200 8.5-10 mg/dL Normal .1 CA 9.2 LAB L501.5300 136-14 mmol/L Normal 5 NA 139 LAB L501.5600 3.5-5. mmol/L Normal 1 K 3.5 LAB L501.5900 98-107 mmol/L Normal CL 103 LAB L501.6100 21.0-3 mmol/L Normal 2.0 CO2 31.0 LAB L501.6200 5-15 Normal GAP 5 Performed By: #### L500.2500, L501.4010 #### [facility] [address] [place], [place], [address] TROPONIN-I Collected: 02/20/2018 Status: F Source: [place] 9:35 PM [facility] REPOSITORY TYPE CODE TESTS RESULT OUT OF RANGE REFERENCE UNITS LAB L501.4010 <0.045 ng/mL Normal 0.017 TROPONIN-I Result Comment: TROPONIN-I EXPECTED VALUES <0.045 Negative 0.045 - 0.590 Consistent with Cardiac Damage > OR = 0.600 Critical Value Not every elevated troponin is indicative of MT. These values should be used with clinical judgement in examining the patient's clinical picture for diagnosis. To establish a diagnosis of MT versus myocardial injury, there must be a demonstrated rise and/or fall in the troponin values, in addition to ischemic symptoms, EKG changes, new regional wall motion abnormality, and/or angiographical evidence. PLEASE NOTE: REFERENCE RANGES EDITED 18 Performed By: #### L500.2500, L501.4010 #### [facility] [address] [facility] [place], [place], [address] CK Collected: 02/20/2018 Status: F Source: [facility] 12:40 PM MAIN [place] REPOSITORY TYPE CODE TESTS RESULT OUT OF RANGE REFERENCE UNITS LAB CK 51-298 U/L CK 127 Result Comment: Please note the updated, gender-specific reference range for this test (effective 09/14/2016). Performed By: #### CK, CMP, CBCDIF #### [facility] [address] [place], [place] [address] COMP METABOLIC PANEL Collected: 02/20/2018 Status: F Source: [place] 12:40 PM [facility] MAIN [place] REPOSITORY TYPE CODE TESTS RESULT OUT OF REFERENCE UNITS RANGE LAB TP 6.3-8.0 g/dL Protein, Total 6.3 LAB ALB 3.9-4.9 g/dL Albumin 4.1 LAB CA 8.5-10.2 mg/dL Calcium, Total 9.3 LAB TBIL 0.2-1.3 mg/dL Bilirubin, Total 0.4 LAB ALKP 36-108 U/L Alkaline Phosphatase 68 LAB AST 14-40 U/L AST 15 LAB GLU 74-99 mg/dL Glucose 85 Result Comment: The [place] Diabetes Association (ADA) provides guidance for cutoff values for fasting glucose and random glucose. The ADA defines fasting as no caloric intake for at least 8 hours. Fas ting plasma glucose results between 100 to 125 mg/dL indicate increased risk for diabetes (prediabetes). Fasting plasma glucose results greater than or equal to 126 mg/dL meet the criteria for diagnosis of diabetes. In the absence of unequivocal hyperglycemia, results should be confirmed by repeat testing. In a patient with classic symptoms of hyperglycemia or hyperglycemic crisis, random plasma glucose results greater than or equal to 200 mg/dL meet the criteria for diagnosis of diabetes. Reference: Standards of Medical Care in Diabetes 2016, [place] Diabetes Association. Diabetes Care. 2016.39(Suppl 1). LAB BUN 9-24 mg/dL BUN 17 LAB CRET 0.73-1.22 mg/dL Creatinine 1.01 LAB NA 136-144 mmol/L Sodium 140 LAB K 3.7-5.1 mmol/L Potassium 3.9 LAB CL 97-105 mmol/L Chloride 97 LAB CO2 22-30 mmol/L CO2 28 LAB AGAP 9-18 mmol/L Anion Gap 15 LAB ALT 10-54 U/L ALT 15 LAB GFRAA eGFR- Amer. >60 LAB GFRNAA . eGFR-All Other Races >60 Result Comment: eGFR (Estimated GFR) Units of measure: mL/min/1.73 meters squared eGFR is derived from the reexpressed MDRD Study equation using the following parameters: serum creatinine, age, gender and race. The creatinine assay has been calibrated to be traceable to IDMS. An eGFR <60 mL/min/1.73m2 for >3 months is consistent with chronic kidney disease. Refer to KDOQI guidelines for clinical interpretation. In patients with unstable renal function, e.g. those with acute kidney injury, the eGFR may not accurately reflect actual GFR. Performed By: #### CK, CMP, CBCDIF #### [facility] [address] [place], [place] [address] CBC AND DIFFERENTIAL Collected: 02/20/2018 Status: F Source: [place] 12:40 PM [facility]IC [facility] REPOSITORY TYPE CODE TESTS RESULT OUT OF REFERENCE UNITS RANGE LAB WBC 3.70-11.00 k/uL WBC 7.74 LAB RBC 4.20-6.00 m/uL RBC 4.47 LAB HGB 13.0-17.0 g/dL Hemoglobin 14.2 LAB HCT 39.0-51.0 % Hematocrit 44.3 LAB MCV 80.0-100.0 fL MCV 99.1 LAB MCH 26.0-34.0 pG MCH 31.8 LAB MCHC 30.5-36.0 g/dL MCHC 32.1 LAB RDWCV 11.5-15.0 % RDW-CV 14.5 LAB PLTCT 150-400 k/uL Platelet Count 242 LAB MPV 9.0-12.7 fL MPV 9.3 LAB ANEUT % Neut% 52.9 LAB AANEUT 1.45-7.50 k/uL Abs Neut 4.09 LAB ALYMP % Lymph% 35.5 LAB AALYMP 1.00-4.00 k/uL Abs Lymph 2.75 LAB AMONO % Brule% 8.9 LAB AAMONO <0.87 k/uL Abs Brule 0.69 LAB AEOS % Eosin% 2.1 LAB AAEOS <0.46 k/uL Abs Eosin 0.16 LAB ABASO % Baso% 0.6 LAB AABASO <0.11 k/uL Abs Baso 0.05 LAB AUNRBC 0 /100 WBC NRBCs 0.0 LAB ABNRBC <0.01 k/uL Absolute nRBC <0.01 LAB DTYP DTYPE Auto Diff Performed By: #### CK, CMP, CBCDIF #### [facility] [address] [place], [place] [address] PROGRESS Observed: 02/19/2018 Status: COMPLETED Source: [place] 12:[address] [facility] REPOSITORY HNO ID: [id number] Author: Lucia Pond (August) Mumtaz Service: (none) Author Type: Physician Metal Flow Coordinator Type: Progress Notes Filed: 02/19/2018 2:43 PM Note Text: 53 year old male with c/o here for f/u with BP and cholesterol. 1. Pain management: Seeing Dr. Caal. First epidural injection helped for a week. Going to have second injection but doesn't have time for sedation. Started on diclofenac: no change. Frustrated. Wants MRI done. Pain is disabling. Feels will need disability is persists, 2. Has been dizzy a few times getting up at work. Worried about BPand cholesterol. Stopped Atorvastatin due to lawsuit in news. HISTORIES FAMILY HISTORY Problem Relation Age of Onset - Cancer Mother kidney - Cancer Father brain - Cancer Brother testicle - Cancer Sister non hodgkins lymphoma PAST MEDICAL HISTORY Diagnosis Date - Abdominal pain, epigastric - Abdominal pain, unspecified site - Anemia - Depressive disorder, not elsewhere classified - Difficult airway 02/05/2017 could not intubate could not ventilate - Difficult intubation 02/05/2017 - DVT (deep venous thrombosis) (HCC) 11/27/12 of right calf - Esophageal reflux - Gallbladder polyp - Hyperlipidemia 2011 - Hypertension - Insomnia - MGUS (monoclonal gammopathy of unknown significance) - Nausea AND vomiting - CECILY (obstructive sleep apnea) 01/25/2015 - Snoring - Stroke (HCC) - Tobacco use disorder - Transient ischemic attack (TIA) - Unspecified essential hypertension PAST SURGICAL HISTORY Procedure Laterality Date - CARPAL TUNNEL Bilateral 2015 - CHOLECYSTECTOMY 04/02/2017 laparoscopic cholecystectomy with cholangiograms R Cebul - COLONOSCOP W/ OR W/O [facility] SPEC Colonoscopy - COLONOSCOPY 01/02/2017 - EGD W/O [facility] SPECIMEN W/BX 04/04/07 - EGD W/O OR W/BRUSH/WASH 01/03/2013 EGD - G-ESOPH REFLX TST W/ELECTROD 04/04/07 - PAST SURGICAL HISTORY OF excision lymph node - PAST SURGICAL HISTORY OF vasectomy - PAST SURGICAL HISTORY OF 2009 left knee surgery - PAST SURGICAL HISTORY OF 2011 right foot surgery - PAST SURGICAL HISTORY OF Left 2016 knee surgery, fillers used Social History Marital status: Spouse name: Years of education: Number of children: 1 Occupational History Occupation Employer Comment [employer] Social History Main Topics Smoking status: Current Every Day Smoker Packs/day: 0.50 Years: 30.00 Types: Cigarettes Start date: 12/21/1986 Smokeless tobacco: Never Used Alcohol use: No Drug use: No Sexual activity: Yes Partners with: Female control/protection: Surgical ACTIVE PROBLEM LIST Dysuria Tobacco Use Disorder Esophageal Reflux Depressive Disorder, Not Elsewhere Classified Pain in Joint, Forearm GANGLION UNSPECIFIED HEMORRHOIDS EXTERNAL THROMBOSED Abdominal Pain, Unspecified Site Unspecified Essential Hypertension Abdominal Pain, Epigastric Nausea AND Vomiting Sprain of Foot, Unspecified Site Pain in Limb Enthesopathy of Ankle and Tarsus, Unspecified Herpes Sinus Tarsi Syndrome Dvt, Lower Extremity, Distal (Hcc) Anemia Pigmented Purpuric Dermatosis Hypertension Goal Bp (Blood Pressure) < 140/90 Hyperlipidemia Obesity Cecily (Obstructive Sleep Apnea) Left-Sided Low Back Pain With Left-Sided Sciatica Left Buttock Pain Ischial Bursitis of Left Side Gallbladder Polyp Internal Hemorrhoids Diverticulosis of Large Intestine Without Hemorrhage Hyperplastic Colonic Polyp Difficult Intubation Difficult Airway Primary Osteoarthritis of Both Hips Piriformis Syndrome, Left Trochanteric Bursitis of Both Hips Current Outpatient Prescriptions: tiZANidine (ZANAFLEX) 4 mg tablet Take 1 tablet by mouth every 8 hours as needed (muscle spasms). Disp: 30 tablet Rfl: 3 zolpidem (AMBIEN) 10 mg tab Take 1 tablet by mouth daily at bedtime for 90 days. Disp: 30 tablet Rfl: 2 losartan-hydrochlorothiazide (HYZAAR) 100-25 mg per tablet TAKE 1 TABLET BY MOUTH ONCE DAILY. Disp: 90 tablet Rfl: 1 ciclopirox (LOPROX) 0.77 % cream Apply 1 application to affected area once daily. Disp: 90 g Rfl: 3 Omeprazole (PRILOSEC) 40 mg capsule Take 1 capsule by mouth once daily. Disp: 90 capsule Rfl: 1 DULoxetine (CYMBALTA) 60 mg capsule TAKE 1 CAPSULE BY MOUTH ONCE DAILY. Disp: 90 capsule Rfl: 3 VENTOLIN HFA 90 mcg/actuation inhaler INHALE 2 PUFFS INSTRUCTED EVERY 6 HOURS NEEDED FOR WHEEZING/SHORTNESS OF BREATH. Disp: 18 Inhaler Rfl: 2 carvedilol (COREG) 25 mg tablet TAKE 2 TABLETS BY MOUTH TWICE DAILY. Disp: 360 tablet Rfl: 3 buPROPion XL (WELLBUTRIN XL) 150 mg 24 hr tablet Take 1 tablet by mouth once daily. Disp: 30 tablet Rfl: 2 Comp Stocking,Knee,Regular,Sml (T.E.D. KNEE [id number]) misc Compression to be 20-30 DX: venous insufficiency Disp: 2 Each Rfl: 6 atorvastatin (LIPITOR) 40 mg tablet Take 2 tablets by mouth once daily. Disp: 90 tablet Rfl: 3 CPAP Initiate Auto PAP @ 5/20 cm of water with humidification. Mask (per patient preference) optional chin strap (if indicated) , filters, tubing, humidifier and lifetime supplies. Please fax downloads to [phone]. Disp: 1 Device Rfl: 0 diclofenac, EC, (VOLTAREN) 75 mg EC tablet Disp: Rfl: No current facility-administered medications for this visit. There are no preventive care reminders to display for this patient. EXAM: BP 128/82 (BP Site: Right Arm, BP Position: Sitting, BP Cuff Size: Large Adult) Pulse 72 Resp 20 Wt 108.4 kg (239 lb) BMI 36.22 kg/m? Pleasant obese adult man in no acute distress. Alert and oriented all spheres. Normal affect and cognition. Speech normal. No deficits to learning or comprehension. Skin warm, dry, pink to lips and nailbeds. Normal turgor. Chest CTA. HRRR without murmur or gallop. Respirations regular and unlabored. Continues to have tenderness over the left sacroiliac area, initial prominence, lumbar paravertebral on the right and left. Patient is stiff with range of motion, difficulty bending forward, has to flex knees. Extrem: no clubbing, cyanosis, edema. Extremities are warm and pink with prompt capillary refill. straight leg raise distracted is negative. Straight leg lays supine to about 70-80? with some hamstring tightness but no radiating pain. Motor strength is full to tiptoe walk, heel, shallow bed, resistance to internal/external rotation of hips. ASSESSMENT/PLAN: 1. Chronic left-sided low back pain with left-sided sciatica - ICD9: 724.2, 724.3, 338.29, ICD10: M54.42, G89.29 (primary diagnosis) Symptoms consistent with herniated disc - DICLOFENAC SODIUM 75 MG TABLET,DELAYED RELEASE - MRI LUMBAR SPINE WO IVCON 2. Dorsalgia - ICD9: 724.5, ICD10: M54.9 - DICLOFENAC SODIUM 75 MG TABLET,DELAYED RELEASE - MRI LUMBAR SPINE WO IVCON 3. Ischial bursitis of left side - ICD9: 726.5, ICD10: M70.72 - DICLOFENAC SODIUM 75 MG TABLET,DELAYED RELEASE - MRI LUMBAR SPINE WO IVCON 4. Lumbar post-laminectomy syndrome - ICD9: 722.83, ICD10: M96.1 - DICLOFENAC SODIUM 75 MG TABLET,DELAYED RELEASE - MRI LUMBAR SPINE WO IVCON 5. Hyperlipidemia, mixed - ICD9: 272.2, ICD10: E78.2 - poor control - Begin treatment with pravastatin (Pravachol) 20 mg - LIPID PANEL BASIC - CK CREATINE KINASE - AST/SGOT BLD - COMP METABOLIC PANEL 6. Hypertriglyceridemia - ICD9: 272.1, ICD10: E78.1 - poor control - Discussed the benefits of regular aerobic exercise and weight loss. - Encouraged following a low carbohydrate, healthy oil intake diet. - LIPID PANEL BASIC - COMP METABOLIC PANEL 7. Medication management - ICD9: V58.69, ICD10: Z79.899 - CBC + DIFF - COMP METABOLIC PANEL Lucia Pandya PA-C CNOV Observed: 02/19/2018 Status: COMPLETED Source: [place] 12:[address] [facility] REPOSITORY Office Visit (FAMPWS) TWIN NEWMAN ([id number]) 1965 M Date Time Provider Department 02/19/18 12:40 PM Lucia PANDYA) FAMPWS During your visit today, we recorded the following information about you: Pulse Respiration Blood pressure Weight 72/minute 20/minute 128/82 108.4 kg Lucia Pandya PA-C 02/19/2018 2:43 PM Signed 53 year old male with c/o here for f/u with BP and cholesterol. 1. Pain management: Seeing Dr. Caal. First epidural injection helped for a week. Going to have second injection but doesn't have time for sedation. Started on diclofenac: no change. Frustrated. Wants MRI done. Pain is disabling. Feels will need disability is persists, 2. Has been dizzy a few times getting up at work. Worried about BPand cholesterol. Stopped Atorvastatin due to lawsuit in news. HISTORIES FAMILY HISTORY Problem Relation Age of Onset - Cancer Mother kidney - Cancer Father brain - Cancer Brother testicle - Cancer Sister non hodgkins lymphoma PAST MEDICAL HISTORY Diagnosis Date - Abdominal pain, epigastric - Abdominal pain, unspecified site - Anemia - Depressive disorder, not elsewhere classified - Difficult airway 02/05/2017 could not intubate could not ventilate - Difficult intubation 02/05/2017 - DVT (deep venous thrombosis) (HCC) 11/27/12 of right calf - Esophageal reflux - Gallbladder polyp - Hyperlipidemia 2011 - Hypertension - Insomnia - MGUS (monoclonal gammopathy of unknown significance) - Nausea AND vomiting - CECILY (obstructive sleep apnea) 01/25/2015 - Snoring - Stroke (HCC) - Tobacco use disorder - Transient ischemic attack (TIA) - Unspecified essential hypertension PAST SURGICAL HISTORY Procedure Laterality Date - CARPAL TUNNEL Bilateral 2015 - CHOLECYSTECTOMY 04/02/2017 laparoscopic cholecystectomy with cholangiograms R Cebul - COLONOSCOP W/ OR W/O BRSH SPEC Colonoscopy - COLONOSCOPY 01/02/2017 - EGD W/O BRSH SPECIMEN W/BX 04/04/07 - EGD W/O OR W/BRUSH/WASH 01/03/2013 EGD - G-ESOPH REFLX TST W/ELECTROD 04/04/07 - PAST SURGICAL HISTORY OF excision lymph node - PAST SURGICAL HISTORY OF vasectomy - PAST SURGICAL HISTORY OF 2009 left knee surgery - PAST SURGICAL HISTORY OF 2011 right foot surgery - PAST SURGICAL HISTORY OF Left 2016 knee surgery, fillers used Social History Marital status: Spouse name: Years of education: Number of children: 1 Occupational History Occupation Employer Comment [employer] Social History Main Topics Smoking status: Current Every Day Smoker Packs/day: 0.50 Years: 30.00 Types: Cigarettes Start date: 12/21/1986 Smokeless tobacco: Never Used Alcohol use: No Drug use: No Sexual activity: Yes Partners with: Female control/protection: Surgical ACTIVE PROBLEM LIST Dysuria Tobacco Use Disorder Esophageal Reflux Depressive Disorder, Not Elsewhere Classified Pain in Joint, Forearm GANGLION UNSPECIFIED HEMORRHOIDS EXTERNAL THROMBOSED Abdominal Pain, Unspecified Site Unspecified Essential Hypertension Abdominal Pain, Epigastric Nausea AND Vomiting Sprain of Foot, Unspecified Site Pain in Limb Enthesopathy of Ankle and Tarsus, Unspecified Herpes Sinus Tarsi Syndrome Dvt, Lower Extremity, Distal (Hcc) Anemia Pigmented Purpuric Dermatosis Hypertension Goal Bp (Blood Pressure) < 140/90 Hyperlipidemia Obesity Cecily (Obstructive Sleep Apnea) Left-Sided Low Back Pain With Left-Sided Sciatica Left Buttock Pain Ischial Bursitis of Left Side Gallbladder Polyp Internal Hemorrhoids Diverticulosis of Large Intestine Without Hemorrhage Hyperplastic Colonic Polyp Difficult Intubation Difficult Airway Primary Osteoarthritis of Both Hips Piriformis Syndrome, Left Trochanteric Bursitis of Both Hips Current Outpatient Prescriptions: tiZANidine (ZANAFLEX) 4 mg tablet Take 1 tablet by mouth every 8 hours as needed (muscle spasms). Disp: 30 tablet Rfl: 3 zolpidem (AMBIEN) 10 mg tab Take 1 tablet by mouth daily at bedtime for 90 days. Disp: 30 tablet Rfl: 2 losartan-hydrochlorothiazide (HYZAAR) 100-25 mg per tablet TAKE 1 TABLET BY MOUTH ONCE DAILY. Disp: 90 tablet Rfl: 1 ciclopirox (LOPROX) 0.77 % cream Apply 1 application to affected area once daily. Disp: 90 g Rfl: 3 Omeprazole (PRILOSEC) 40 mg capsule Take 1 capsule by mouth once daily. Disp: 90 capsule Rfl: 1 DULoxetine (CYMBALTA) 60 mg capsule TAKE 1 CAPSULE BY MOUTH ONCE DAILY. Disp: 90 capsule Rfl: 3 VENTOLIN HFA 90 mcg/actuation inhaler INHALE 2 PUFFS INSTRUCTED EVERY 6 HOURS NEEDED FOR WHEEZING/SHORTNESS OF BREATH. Disp: 18 Inhaler Rfl: 2 carvedilol (COREG) 25 mg tablet TAKE 2 TABLETS BY MOUTH TWICE DAILY. Disp: 360 tablet Rfl: 3 buPROPion XL (WELLBUTRIN XL) 150 mg 24 hr tablet Take 1 tablet by mouth once daily. Disp: 30 tablet Rfl: 2 Comp Stocking,Knee,Regular,Sml (T.E.D. KNEE [id number]) misc Compression to be 20-30 DX: venous insufficiency Disp: 2 Each Rfl: 6 atorvastatin (LIPITOR) 40 mg tablet Take 2 tablets by mouth once daily. Disp: 90 tablet Rfl: 3 CPAP Initiate Auto PAP @ 5/20 cm of water with humidification. Mask (per patient preference) optional chin strap (if indicated) , filters, tubing, humidifier and lifetime supplies. Please fax downloads to [phone]. Disp: 1 Device Rfl: 0 diclofenac, EC, (VOLTAREN) 75 mg EC tablet Disp: Rfl: No current facility-administered medications for this visit. There are no preventive care reminders to display for this patient. EXAM: BP 128/82 (BP Site: Right Arm, BP Position: Sitting, BP Cuff Size: Large Adult) Pulse 72 Resp 20 Wt 108.4 kg (239 lb) BMI 36.22 kg/m? Pleasant obese adult man in no acute distress. Alert and oriented all spheres. Normal affect and cognition. Speech normal. No deficits to learning or comprehension. Skin warm, dry, pink to lips and nailbeds. Normal turgor. Chest CTA. HRRR without murmur or gallop. Respirations regular and unlabored. Continues to have tenderness over the left sacroiliac area, initial prominence, lumbar paravertebral on the right and left. Patient is stiff with range of motion, difficulty bending forward, has to flex knees. Extrem: no clubbing, cyanosis, edema. Extremities are warm and pink with prompt capillary refill. straight leg raise distracted is negative. Straight leg lays supine to about 70-80? with some hamstring tightness but no radiating pain. Motor strength is full to tiptoe walk, heel, shallow bed, resistance to internal/external rotation of hips. ASSESSMENT/PLAN: 1. Chronic left-sided low back pain with left-sided sciatica - ICD9: 724.2, 724.3, 338.29, ICD10: M54.42, G89.29 (primary diagnosis) Symptoms consistent with herniated disc - DICLOFENAC SODIUM 75 MG TABLET,DELAYED RELEASE - MRI LUMBAR SPINE WO IVCON 2. Dorsalgia - ICD9: 724.5, ICD10: M54.9 - DICLOFENAC SODIUM 75 MG TABLET,DELAYED RELEASE - MRI LUMBAR SPINE WO IVCON 3. Ischial bursitis of left side - ICD9: 726.5, ICD10: M70.72 - DICLOFENAC SODIUM 75 MG TABLET,DELAYED RELEASE - MRI LUMBAR SPINE WO IVCON 4. Lumbar post-laminectomy syndrome - ICD9: 722.83, ICD10: M96.1 - DICLOFENAC SODIUM 75 MG TABLET,DELAYED RELEASE - MRI LUMBAR SPINE WO IVCON 5. Hyperlipidemia, mixed - ICD9: 272.2, ICD10: E78.2 - poor control - Begin treatment with pravastatin (Pravachol) 20 mg - LIPID PANEL BASIC - CK CREATINE KINASE - AST/SGOT BLD - COMP METABOLIC PANEL 6. Hypertriglyceridemia - ICD9: 272.1, ICD10: E78.1 - poor control - Discussed the benefits of regular aerobic exercise and weight loss. - Encouraged following a low carbohydrate, healthy oil intake diet. - LIPID PANEL BASIC - COMP METABOLIC PANEL 7. Medication management - ICD9: V58.69, ICD10: Z79.899 - CBC + DIFF - COMP METABOLIC PANEL M Anibal Pandya PA-C Referring Provider: SELF [[id number]] Allergies As of Date: 02/19/2018 Noted Allergy Reaction FLEXERIL (CYCLOBENZAPRINE HCL) 12/20/2012 8 - GI Upset TRAMADOL 12/16/2014 8 - GI Upset VICODIN (HYDROCODONE-ACETAMINOPHE*12/13/2009 8 - GI Upset Date Reviewed: 02/19/2018 Reviewed by: Kay (Dayana) DAYANA Crenshaw - Fully Assessed Reason for Visit: Recheck [92] Cmt: bp and cholesterol Primary Visit Diagnosis:Chronic left-sided low back pain with left-sided sciatica [M54.42, G89.29] Other Visit Diagnoses:Dorsalgia [M54.9] Ischial bursitis of left side [M70.72] Lumbar post-laminectomy syndrome [M96.1] Hyperlipidemia, mixed [E78.2] Hypertriglyceridemia [E78.1] Medication management [Z79.899] Order(s):MRI LUMBAR SPINE WO IVCON [[id number]] Order #: [id number] FUTURE LIPID PANEL BASIC [SQLIPB] Order #: [id number] FUTURE pravastatin (PRAVACHOL) 20 mg tabletTake 1 tablet by mouth daily at bedtime.Disp: 30 tabletRfl: 2 CK CREATINE KINASE [SQCK] Order #: [id number] FUTURE AST/SGOT BLD [SQAST] Order #: [id number] FUTURE CBC + DIFF [SQCBCDIF] Order #: [id number] FUTURE COMP METABOLIC PANEL [SQCMP] Order #: [id number] FUTURE Prescriptions as of 02/19/2018 Sig: TIZANIDINE 4 MG TABLET Take 1 tablet by mouth every * ZOLPIDEM 10 MG TABLET Take 1 tablet by mouth daily * LOSARTAN 100 MG-HYDROCHLOROTH* TAKE 1 TABLET BY MOUTH ONCE D* CICLOPIROX 0.77 % TOPICAL CRE* Apply 1 application to affect* OMEPRAZOLE 40 MG CAPSULE,BRYNN* Take 1 capsule by mouth once * DULOXETINE 60 MG CAPSULE,BRYNN* TAKE 1 CAPSULE BY MOUTH ONCE * VENTOLIN HFA 90 MCG/ACTUATION* INHALE 2 PUFFS INSTRUCTED * CARVEDILOL 25 MG TABLET TAKE 2 TABLETS BY MOUTH TWICE* COMPRESSION STOCKING, KNEE HI* Compression to be 20-30 DX:* ATORVASTATIN 40 MG TABLET Take 2 tablets by mouth once * CPAP Initiate Auto PAP @ 5/20 cm o* DICLOFENAC SODIUM 75 MG TABLE* PRAVASTATIN 20 MG TABLET Take 1 tablet by mouth daily * Problem List As Of Date 02/19/2018 Noted Resolved DYSURIA [R30.0] INVALID FOR* Prostatitis, unspecified [N41.9] INVALID FOR*12/11/2016 TOBACCO USE DISORDER [F17.200] ESOPHAGEAL REFLUX [K21.9] DEPRESSIVE DISORDER NEC [F32.9] JOINT PAIN-FOREARM [M25.539] INVALID FOR* GANGLION UNSPECIFIED [M67.40] INVALID FOR* HEMORRHOIDS EXTERNAL THROMBOSED [K64.5] INVALID FOR* Abdominal Pain, Unspecified Site [R10.9] Unspecified Essential Hypertension [I10] Abdominal Pain, Epigastric [R10.13] Nausea AND Vomiting [R11.2] Sprain and strain of unspecified site of foot [*INVALID FOR* Pain in limb [M79.609] INVALID FOR* Enthesopathy of ankle and tarsus, unspecified [*INVALID FOR* 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 Hypertension goal BP (blood pressure) < 140/90 * Hyperlipidemia [E78.5] Inflamed skin tag [L91.8] INVALID FOR*12/11/2016 Obesity [E66.9] INVALID FOR* CECILY (obstructive sleep apnea) [G47.33] INVALID FOR* Left-sided low back pain with left-sided sciati*INVALID FOR* Left buttock pain [M79.1] INVALID FOR* Ischial bursitis of left side [M70.72] INVALID FOR* Gallbladder polyp [K82.4] INVALID FOR* Internal hemorrhoids [K64.8] INVALID FOR* Diverticulosis of large intestine without hemor*INVALID FOR* Hyperplastic colonic polyp [K63.5] INVALID FOR* Difficult intubation [T88.4XXA] INVALID FOR* Difficult airway [T88.4XXA] INVALID FOR* More... Primary osteoarthritis of both hips [M16.0] INVALID FOR* Piriformis syndrome, left [G57.02] INVALID FOR* Trochanteric bursitis of both hips [M70.61, M70*INVALID FOR* Prescriptions ordered this encounter Disp Refills Start End PRAVASTATIN 20 MG TABLET 30 t* 2 02/19/2018 Route: ORAL Sig: Take 1 tablet by mouth daily at bedtime. Medications Discontinued During This Encounter buPROPion XL (WELLBUTRIN XL) 150 mg * 30 t* 2 12/20/2016 02/19/2018 Route: ORAL Sig: Take 1 tablet by mouth once daily. Disc: Reason for discontinue is not on file. Letter Text [address] [phone] Twin Newman [address] [place] [address] Clinic #: [id number] 02/19/2018 To Whom it may concern, Twin Newman is under our care for acute and chronic medical conditions. Please allow him to sit at intervals at work, preferably on an hourly basis for relief. Thank you, Margarita Pandya PA-C Letter Text [address] [phone] Twin Newman [address] [place] [address] Clinic #: [id number] 02/19/2018 Twin Newman is under our care for acute and chronic medical conditions. Please allow him to sit at intervals at work, preferably as needed for relief. Sincerely, Lucia Pandya PA-C Encounter Status:Closed by MUMTAZ KOCH, Lucia POND on 02/19/18 URIC ACID Collected: 01/17/2018 Status: F Source: [place] 12:35 PM [facility] REPOSITORY TYPE CODE TESTS RESULT OUT OF RANGE REFERENCE UNITS LAB URIC 4.0-8.1 mg/dL Uric Acid 5.7 Performed By: #### URIC #### [facility] [address] [place], [place] [address] PROGRESS Observed: 01/16/2018 Status: COMPLETED Source: [place] 1:03 PM [facility] REPOSITORY HNO ID: [id number] Author: Cheyenne Saucedo Service: (none) Author Type: Physician Type: Progress Notes Filed: 01/16/2018 1:15 PM Note Text: ? Cheyenne Saucedo DPM Department of Podiatry [address] [facility] [address] Dept: [phone] Dept 01/16/2018 Follow Up Podiatric Office Visit: HPI: Twin Newman is a 52 year old male. Patient presents 2 weeks s/p total nail matrixectomy, bilateral hallux. Patient complains of pain. Pain is rated at 1/10, and described as sore. Patient only has pain with pressure. Patient concerned that he may have gout in right hallux. Physical Exam: Constitutional: Pt is a well developed 52 year old male who is alert, oriented and cooperative Eyes: Following during examination. No redness or drainage. Respiratory: RR normal and nonlabored. Even breathing. No evidence of distress or shortness of breath. Psychology: Patient is engaged during conversation. Normal affect and mood. Does not appear depressed or anxious during encounter. Vascular: Dorsalis pedis and posterior tibial pulses palpable as b/l Capillary Fill time < 5 seconds to digits 1-5 b/l Skin temperature warm to cool proximal to distal b/l Hair growth present to digits Dermatological: Skin appears well hydrated and supple. good color, texture, turgor. Some clear drainage to bilateral hallux. No purulent drainage, no redness. No signs of infection. Nail bed appears to be healing. Callosities present absent. No pain with rom of b/l 1st mtpj (S91.109D) Open wound of toe, subsequent encounter Plan: Continue bandaid and neosporin until drainage stops. Toe appears stable without signs of infection. Informed patient that drainage can exist for several weeks following procedure. Patient also understands risk of recurrence. Patient happy with outcome. (M25.571) Pain in joint involving right ankle and foot Comment: No current signs of gout. Discussed interventions if pain in future including NSAIDs, cortisone injection Plan: Check uric acid although uric acid is sometimes nonspecific If pain in the future contact office to schedule appointment I agree with the Chief Complaint, ROS, and Past Histories independently gathered by the clinical pit crew support worker and the remaining scribed note accurately describes my personal service to the patient. Ksenia Saucedo DPM CNOV Observed: 01/16/2018 Status: COMPLETED Source: [place] 12:[address] [facility] REPOSITORY Office Visit (PODIWS) TWIN NEWMAN ([id number]) 1965 M Date Time Provider Department 01/16/18 12:55 PM CHEYENNE SAUCEDO During your visit today, we recorded the following information about you: Cheyenne Saucedo DPM 01/16/2018 1:15 PM Signed ? Cheyenne Saucedo DPM Department of Podiatry [facility] [address] [facility] [address] Dept: [phone] Dept 01/16/2018 Follow Up Podiatric Office Visit: HPI: Twin Newman is a 52 year old male. Patient presents 2 weeks s/p total nail matrixectomy, bilateral hallux. Patient complains of pain. Pain is rated at 1/10, and described as sore. Patient only has pain with pressure. Patient concerned that he may have gout in right hallux. Physical Exam: Constitutional: Pt is a well developed 52 year old male who is alert, oriented and cooperative Eyes: Following during examination. No redness or drainage. Respiratory: RR normal and nonlabored. Even breathing. No evidence of distress or shortness of breath. Psychology: Patient is engaged during conversation. Normal affect and mood. Does not appear depressed or anxious during encounter. Vascular: Dorsalis pedis and posterior tibial pulses palpable as b/l Capillary Fill time ANDlt; 5 seconds to digits 1-5 b/l Skin temperature warm to cool proximal to distal b/l Hair growth present to digits Dermatological: Skin appears well hydrated and supple. good color, texture, turgor. Some clear drainage to bilateral hallux. No purulent drainage, no redness. No signs of infection. Nail bed appears to be healing. Callosities present absent. No pain with rom of b/l 1st mtpj (S91.109D) Open wound of toe, subsequent encounter Plan: Continue bandaid and neosporin until drainage stops. Toe appears stable without signs of infection. Informed patient that drainage can exist for several weeks following procedure. Patient also understands risk of recurrence. Patient happy with outcome. (M25.571) Pain in joint involving right ankle and foot Comment: No current signs of gout. Discussed interventions if pain in future including NSAIDs, cortisone injection Plan: Check uric acid although uric acid is sometimes nonspecific If pain in the future contact office to schedule appointment I agree with the Chief Complaint, ROS, and Past Histories independently gathered by the clinical pit crew support worker and the remaining scribed note accurately describes my personal service to the patient. ARBEN León RN, RN 01/16/2018 1:13 PM Signed Check uric acid level Follow up as needed Referring Provider: CHEYENNE SAUCEDO [[id number]] Allergies As of Date: 01/16/2018 Noted Allergy Reaction FLEXERIL (CYCLOBENZAPRINE HCL) 12/20/2012 8 - GI Upset TRAMADOL 12/16/2014 8 - GI Upset VICODIN (HYDROCODONE-ACETAMINOPHE*12/13/2009 8 - GI Upset Date Reviewed: 01/16/2018 Reviewed by: Ksenia Crenshaw RN - Fully Assessed Reason for Visit: Recheck [92] Cmt: 2 wk s/p total matrixectomy, bilateral hallux Primary Visit Diagnosis:Open wound of toe, subsequent encounter [D27.109D] Other Visit Diagnosis:Pain in joint involving right ankle and foot [M25.571] Order(s):URIC ACID BLOOD [SQURIC] Order #: [id number] FUTURE Prescriptions as of 01/16/2018 Sig: LOSARTAN 100 MG-HYDROCHLOROTH* TAKE 1 TABLET BY MOUTH ONCE D* CICLOPIROX 0.77 % TOPICAL CRE* Apply 1 application to affect* OMEPRAZOLE 40 MG CAPSULE,BRYNN* Take 1 capsule by mouth once * DULOXETINE 60 MG CAPSULE,BRYNN* TAKE 1 CAPSULE BY MOUTH ONCE * TIZANIDINE 4 MG TABLET Take 1 tablet by mouth every * ZOLPIDEM 10 MG TABLET Take 1 tablet by mouth daily * VENTOLIN HFA 90 MCG/ACTUATION* INHALE 2 PUFFS INSTRUCTED * CARVEDILOL 25 MG TABLET TAKE 2 TABLETS BY MOUTH TWICE* BUPROPION XL 150 MG TAB Take 1 tablet by mouth once d* COMPRESSION STOCKING, KNEE HI* Compression to be 20-30 DX:* CPAP Initiate Auto PAP @ 5/20 cm o* ATORVASTATIN 40 MG TABLET Take 2 tablets by mouth once * Problem List As Of Date 01/16/2018 Noted Resolved DYSURIA [R30.0] INVALID FOR* Prostatitis, unspecified [N41.9] INVALID FOR*12/11/2016 TOBACCO USE DISORDER [F17.200] ESOPHAGEAL REFLUX [K21.9] DEPRESSIVE DISORDER NEC [F32.9] JOINT PAIN-FOREARM [M25.539] INVALID FOR* GANGLION UNSPECIFIED [M67.40] INVALID FOR* HEMORRHOIDS EXTERNAL THROMBOSED [K64.5] INVALID FOR* Abdominal Pain, Unspecified Site [R10.9] Unspecified Essential Hypertension [I10] Abdominal Pain, Epigastric [R10.13] Nausea AND Vomiting [R11.2] Sprain and strain of unspecified site of foot [*INVALID FOR* Pain in limb [M79.609] INVALID FOR* Enthesopathy of ankle and tarsus, unspecified [*INVALID FOR* 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 Hypertension goal BP (blood pressure) < 140/90 * Hyperlipidemia [E78.5] Inflamed skin tag [L91.8] INVALID FOR*12/11/2016 Obesity [E66.9] INVALID FOR* CECILY (obstructive sleep apnea) [G47.33] INVALID FOR* Left-sided low back pain with left-sided sciati*INVALID FOR* Left buttock pain [M79.1] INVALID FOR* Ischial bursitis of left side [M70.72] INVALID FOR* Gallbladder polyp [K82.4] INVALID FOR* Internal hemorrhoids [K64.8] INVALID FOR* Diverticulosis of large intestine without hemor*INVALID FOR* Hyperplastic colonic polyp [K63.5] INVALID FOR* Difficult intubation [T88.4XXA] INVALID FOR* Difficult airway [T88.4XXA] INVALID FOR* More... Primary osteoarthritis of both hips [M16.0] INVALID FOR* Piriformis syndrome, left [G57.02] INVALID FOR* Trochanteric bursitis of both hips [M70.61, M70*INVALID FOR* Other instructions from your clinician: Check uric acid level Follow up as needed Disposition: Return if symptoms worsen or fail to improve. Follow-up and Disposition History Recorded Encounter Status:Closed by CHEYENNE SAUCEDO DPM on 01/16/18 PROGRESS Observed: 01/01/2018 Status: COMPLETED Source: [place] 1:[address] [facility] REPOSITORY HNO ID: [id number] Author: Marci Stapleton Ma Service: (none) Author Type: (none) Type: Progress Notes Filed: 01/01/2018 2:10 PM Note Text: UNIVERSAL PROTOCOL / SAFETY CHECKLIST Procedure to be performed: total matrixectomy, bilateral hallux nail Sign in Communication: Completed Time Out: Team Confirms the Correct Patient, Correct Procedure, Correct Site and Site Marking, Correct Position (if applicable), Prep and Dry Time (if applicable). Time: 1320 Affirmation of Time Out: YES Sign Out Discussion: Completed Marci Stapleton Ma PROGRESS Observed: 01/01/2018 Status: COMPLETED Source: [place] 1:[address] [facility] REPOSITORY HNO ID: [id number] Author: Cheyenne Saucedo Service: (none) Author Type: Physician Type: Progress Notes Filed: 01/01/2018 2:10 PM Note Text: Follow up podiatric office visit for: Chief Complaint: This 52 year old who presents for follow up:painful hallux toenail. Patient is requesting to have toenails removed via phenol matrixectomy. Patient did have pvr that shows adequate blood flow. Patient has cut back his smoking to 1-2 cigarettes/day. Patient has no other complaints. PAIN EVALUATION No data found. Hemoglobin A1C Date Value Ref Range Status 12/18/2016 6.0 (H) 4.3 - 5.6 % Final Comment: [place] [employer] guidelines indicate that patients with HgbA1c in the range 5.7-6.4% are at increased risk for development of diabetes, and intervention by lifestyle modification may be beneficial. HgbA1c greater or equal to 6.5% is considered diagnostic of diabetes. PCP: Vadim Gutierrez MD PAST MEDICAL HISTORY Diagnosis Date - Abdominal pain, epigastric - Abdominal pain, unspecified site - Anemia - Depressive disorder, not elsewhere classified - Difficult airway 02/05/2017 could not intubate could not ventilate - Difficult intubation 02/05/2017 - DVT (deep venous thrombosis) (HCC) 11/27/12 of right calf - Esophageal reflux - Gallbladder polyp - Hyperlipidemia 2011 - Hypertension - Insomnia - MGUS (monoclonal gammopathy of unknown significance) - Nausea AND vomiting - CECILY (obstructive sleep apnea) 01/25/2015 - Snoring - Stroke ([facility]) - Tobacco use disorder - Transient ischemic attack (TIA) - Unspecified essential hypertension Current Outpatient Prescriptions: losartan-hydrochlorothiazide (HYZAAR) 100-25 mg per tablet TAKE 1 TABLET BY MOUTH ONCE DAILY. ciclopirox (LOPROX) 0.77 % cream Apply 1 application to affected area once daily. Omeprazole (PRILOSEC) 40 mg capsule Take 1 capsule by mouth once daily. DULoxetine (CYMBALTA) 60 mg capsule TAKE 1 CAPSULE BY MOUTH ONCE DAILY. tiZANidine (ZANAFLEX) 4 mg tablet Take 1 tablet by mouth every 8 hours as needed (muscle spasms). zolpidem (AMBIEN) 10 mg tab Take 1 tablet by mouth daily at bedtime for 90 days. VENTOLIN HFA 90 mcg/actuation inhaler INHALE 2 PUFFS INSTRUCTED EVERY 6 HOURS NEEDED FOR WHEEZING/SHORTNESS OF BREATH. carvedilol (COREG) 25 mg tablet TAKE 2 TABLETS BY MOUTH TWICE DAILY. buPROPion XL (WELLBUTRIN XL) 150 mg 24 hr tablet Take 1 tablet by mouth once daily. Comp Stocking,Knee,Regular,Sml (T.E.D. KNEE TIGNIE-M-AALEDSS) misc Compression to be 20-30 DX: venous insufficiency atorvastatin (LIPITOR) 40 mg tablet Take 2 tablets by mouth once daily. CPAP Initiate Auto PAP @ 5/20 cm of water with humidification. Mask (per patient preference) optional chin strap (if indicated) , filters, tubing, humidifier and lifetime supplies. Please fax downloads to [phone]. No current facility-administered medications for this visit. ALLERGIES Allergen Reactions - Flexeril [Cyclobenz* GI Upset - Tramadol GI Upset - Vicodin [Hydrocodon* GI Upset PAST SURGICAL HISTORY Procedure Laterality Date - CARPAL TUNNEL Bilateral 2015 - CHOLECYSTECTOMY 04/02/2017 laparoscopic cholecystectomy with cholangiograms R Cebul - COLONOSCOP W/ OR W/O BRSH SPEC Colonoscopy - COLONOSCOPY 01/02/2017 - EGD W/O BRSH SPECIMEN W/BX 04/04/07 - EGD W/O OR W/BRUSH/WASH 01/03/2013 EGD - G-ESOPH REFLX TST W/ELECTROD 04/04/07 - PAST SURGICAL HISTORY OF excision lymph node - PAST SURGICAL HISTORY OF vasectomy - PAST SURGICAL HISTORY OF 2009 left knee surgery - PAST SURGICAL HISTORY OF 2011 right foot surgery - PAST SURGICAL HISTORY OF Left 2016 knee surgery, fillers used Physical Exam: Constitutional: Pt is a well developed 52 year old male who is alert, oriented, cooperative and in no apparent distress. OBJECTIVE: NVSI unchanged from previous visit. Dermatological: B/l hallux toenail is thick, dystrophic and painful. Webspaces clean and dry 1-4 b/l. Skin appears to be less dry. No open lesions present. No callosities present. Musculoskeletal/Orthopaedic: Patient has pain to palpation of b/l hallux toenail ASSESSMENT: (B35.1) Onychomycosis (primary encounter diagnosis) PLAN: 1. History and physical examination completed today. 2. Discussed thick, dystrophic toenails of b/l hallux . Patient would like removed. Discussed alternative options not limited to scheduled debridements, topical vs oral medication vs matrixectomy. Patient has elected for phenol matrixectomy of b/l hallux. Discussed his smoking. He assures me he is down to 1-2 cigarettes/day. I have informed patient that smoking can delay healing, much to the point that he is at risk of amputation of toes or slow healing wounds. He understands this. I have discussed waiting until he stops vs doing one nail at a time. He has elected to do both today. I have discussed risks not limited to infection, pain, swelling, bleeding, recurrence of toenails, loss of toe, recurrent spicule of toenail, slow wound healing. He understands all his options. He consents to proceed. Discussed risks of toenail procedure not limited to infection, pain, swelling, bleeding, painful scarring, recurrence, need for revised procedure. Patient consented to proceed. Patient was properly identified by name and procedure. The b/l hallux was then injected with 1.5 cc of 0.5% Marcaine plain and 1.5 cc of 2% lidocaine plain in a 50/50 mixture. An additional 2 cc of 2% lidocaine plain was injected to right great toe. The toe was then prepped and draped in the usual aseptic technique. A digital tournicot was applied to the toe. The entire nail was then freed and removed. Careful inspection was performed to assure no remaining spicule present. 3 applications of phenol were then administered x 30 seconds each followed by alcohol rinse. Sterile dressing was then applied consisting of amerigel, guaze, violet and coban. Tournicot was removed and hyperemic response was noted. Patient tolerated well. Patient will f/u in 2 weeks. Cheyenne Saucedo DPM CNOV Observed: 01/01/2018 Status: COMPLETED Source: [place] 12:[address] [facility] REPOSITORY Office Visit (PODIWS) TWIN NEWMAN ([id number]) 1965 M Date Time Provider Department 01/01/18 12:40 PM CHEYENNE SAUCEDO PODIWS During your visit today, we recorded the following information about you: Cheyenne Saucedo DPM 01/01/2018 2:10 PM Signed Follow up podiatric office visit for: Chief Complaint: This 52 year old who presents for follow up:painful hallux toenail. Patient is requesting to have toenails removed via phenol matrixectomy. Patient did have pvr that shows adequate blood flow. Patient has cut back his smoking to 1-2 cigarettes/day. Patient has no other complaints. PAIN EVALUATION No data found. Hemoglobin A1C Date Value Ref Range Status 12/18/2016 6.0 (H) 4.3 - 5.6 % Final Comment: [place] [employer] guidelines indicate that patients with HgbA1c in the range 5.7-6.4% are at increased risk for development of diabetes, and intervention by lifestyle modification may be beneficial. HgbA1c greater or equal to 6.5% is considered diagnostic of diabetes. PCP: Vadim Gutierrez MD PAST MEDICAL HISTORY Diagnosis Date - Abdominal pain, epigastric - Abdominal pain, unspecified site - Anemia - Depressive disorder, not elsewhere classified - Difficult airway 02/05/2017 could not intubate could not ventilate - Difficult intubation 02/05/2017 - DVT (deep venous thrombosis) ([facility]) 11/27/12 of right calf - Esophageal reflux - Gallbladder polyp - Hyperlipidemia 2011 - Hypertension - Insomnia - MGUS (monoclonal gammopathy of unknown significance) - Nausea ANDamp; vomiting - CECILY (obstructive sleep apnea) 01/25/2015 - Snoring - Stroke ([facility]) - Tobacco use disorder - Transient ischemic attack (TIA) - Unspecified essential hypertension Current Outpatient Prescriptions: losartan-hydrochlorothiazide (HYZAAR) 100-25 mg per tablet TAKE 1 TABLET BY MOUTH ONCE DAILY. ciclopirox (LOPROX) 0.77 % cream Apply 1 application to affected area once daily. Omeprazole (PRILOSEC) 40 mg capsule Take 1 capsule by mouth once daily. DULoxetine (CYMBALTA) 60 mg capsule TAKE 1 CAPSULE BY MOUTH ONCE DAILY. tiZANidine (ZANAFLEX) 4 mg tablet Take 1 tablet by mouth every 8 hours as needed (muscle spasms). zolpidem (AMBIEN) 10 mg tab Take 1 tablet by mouth daily at bedtime for 90 days. VENTOLIN HFA 90 mcg/actuation inhaler INHALE 2 PUFFS INSTRUCTED EVERY 6 HOURS NEEDED FOR WHEEZING/SHORTNESS OF BREATH. carvedilol (COREG) 25 mg tablet TAKE 2 TABLETS BY MOUTH TWICE DAILY. buPROPion XL (WELLBUTRIN XL) 150 mg 24 hr tablet Take 1 tablet by mouth once daily. Comp Stocking,Knee,Regular,Sml (T.E.D. KNEE GBDIHQ-T-QMXFOKI) misc Compression to be 20-30 DX: venous insufficiency atorvastatin (LIPITOR) 40 mg tablet Take 2 tablets by mouth once daily. CPAP Initiate Auto PAP @ 5/20 cm of water with humidification. Mask (per patient preference) optional chin strap (if indicated) , filters, tubing, humidifier and lifetime supplies. Please fax downloads to [phone]. No current facility-administered medications for this visit. ALLERGIES Allergen Reactions - Flexeril [Cyclobenz* GI Upset - Tramadol GI Upset - Vicodin [Hydrocodon* GI Upset PAST SURGICAL HISTORY Procedure Laterality Date - CARPAL TUNNEL Bilateral 2015 - CHOLECYSTECTOMY 04/02/2017 laparoscopic cholecystectomy with cholangiograms R Cebul - COLONOSCOP W/ OR W/O BRSH SPEC Colonoscopy - COLONOSCOPY 01/02/2017 - EGD W/O BRSH SPECIMEN W/BX 04/04/07 - EGD W/O OR W/BRUSH/WASH 01/03/2013 EGD - G-ESOPH REFLX TST W/ELECTROD 04/04/07 - PAST SURGICAL HISTORY OF excision lymph node - PAST SURGICAL HISTORY OF vasectomy - PAST SURGICAL HISTORY OF 2009 left knee surgery - PAST SURGICAL HISTORY OF 2011 right foot surgery - PAST SURGICAL HISTORY OF Left 2016 knee surgery, fillers used Physical Exam: Constitutional: Pt is a well developed 52 year old male who is alert, oriented, cooperative and in no apparent distress. OBJECTIVE: NVSI unchanged from previous visit. Dermatological: B/l hallux toenail is thick, dystrophic and painful. Webspaces clean and dry 1-4 b/l. Skin appears to be less dry. No open lesions present. No callosities present. Musculoskeletal/Orthopaedic: Patient has pain to palpation of b/l hallux toenail ASSESSMENT: (B35.1) Onychomycosis (primary encounter diagnosis) PLAN: 1. History and physical examination completed today. 2. Discussed thick, dystrophic toenails of b/l hallux . Patient would like removed. Discussed alternative options not limited to scheduled debridements, topical vs oral medication vs matrixectomy. Patient has elected for phenol matrixectomy of b/l hallux. Discussed his smoking. He assures me he is down to 1-2 cigarettes/day. I have informed patient that smoking can delay healing, much to the point that he is at risk of amputation of toes or slow healing wounds. He understands this. I have discussed waiting until he stops vs doing one nail at a time. He has elected to do both today. I have discussed risks not limited to infection, pain, swelling, bleeding, recurrence of toenails, loss of toe, recurrent spicule of toenail, slow wound healing. He understands all his options. He consents to proceed. Discussed risks of toenail procedure not limited to infection, pain, swelling, bleeding, painful scarring, recurrence, need for revised procedure. Patient consented to proceed. Patient was properly identified by name and procedure. The b/l hallux was then injected with 1.5 cc of 0.5% Marcaine plain and 1.5 cc of 2% lidocaine plain in a 50/50 mixture. An additional 2 cc of 2% lidocaine plain was injected to right great toe. The toe was then prepped and draped in the usual aseptic technique. A digital tournicot was applied to the toe. The entire nail was then freed and removed. Careful inspection was performed to assure no remaining spicule present. 3 applications of phenol were then administered x 30 seconds each followed by alcohol rinse. Sterile dressing was then applied consisting of amerigel, guaze, violet and coban. Tournicot was removed and hyperemic response was noted. Patient tolerated well. Patient will f/u in 2 weeks. ARBEN Franco Ma 01/01/2018 2:10 PM Signed UNIVERSAL PROTOCOL / SAFETY CHECKLIST Procedure to be performed: total matrixectomy, bilateral hallux nail Sign in Communication: Completed Time Out: Team Confirms the Correct Patient, Correct Procedure, Correct Site and Site Marking, Correct Position (if applicable), Prep and Dry Time (if applicable). Time: 1320 Affirmation of Time Out: YES Sign Out Discussion: Completed Marci Stapleton Ma 01/01/2018 1:42 PM Signed Post-Op Nail Instructions Minimize activity until the anesthesia wears off (about 2- 8 hours). Increase activity to tolerance Remove bandage tomorrow Soak affected toe/foot in epsom salts for 15-20 minutes twice daily After soaking, apply antibiotic ointment (OTC Neosporin) to affected toe and re bandage OTC Ibuprofen if having pain, provided you have no allergies or intolerance to NSAIDS Mild drainage, redness, and blood is expected, but if you expeirence severe pain, increase in drainage, swelling, or red streaking please contact our office immediately Feel free to contact office as well if you have any questions/concerns [phone], ask for Podiatry Nurse Referring Provider: CHEYENNE SAUCEDO [[id number]] Allergies As of Date: 01/01/2018 Noted Allergy Reaction FLEXERIL (CYCLOBENZAPRINE HCL) 12/20/2012 8 - GI Upset TRAMADOL 12/16/2014 8 - GI Upset VICODIN (HYDROCODONE-ACETAMINOPHE*12/13/2009 8 - GI Upset Date Reviewed: 01/01/2018 Reviewed by: Marci Stapleton Ma - Fully Assessed Reason for Visit: Procedure [88] Primary Visit Diagnosis:Onychomycosis [B35.1] Prescriptions as of 01/01/2018 Sig: LOSARTAN 100 MG-HYDROCHLOROTH* TAKE 1 TABLET BY MOUTH ONCE D* CICLOPIROX 0.77 % TOPICAL CRE* Apply 1 application to affect* OMEPRAZOLE 40 MG CAPSULE,BRYNN* Take 1 capsule by mouth once * DULOXETINE 60 MG CAPSULE,BRYNN* TAKE 1 CAPSULE BY MOUTH ONCE * TIZANIDINE 4 MG TABLET Take 1 tablet by mouth every * ZOLPIDEM 10 MG TABLET Take 1 tablet by mouth daily * VENTOLIN HFA 90 MCG/ACTUATION* INHALE 2 PUFFS INSTRUCTED * CARVEDILOL 25 MG TABLET TAKE 2 TABLETS BY MOUTH TWICE* BUPROPION XL 150 MG TAB Take 1 tablet by mouth once d* COMPRESSION STOCKING, KNEE HI* Compression to be 20-30 DX:* ATORVASTATIN 40 MG TABLET Take 2 tablets by mouth once * CPAP Initiate Auto PAP @ 5/20 cm o* Problem List As Of Date 01/01/2018 Noted Resolved DYSURIA [R30.0] INVALID FOR* Prostatitis, unspecified [N41.9] INVALID FOR*12/11/2016 TOBACCO USE DISORDER [F17.200] ESOPHAGEAL REFLUX [K21.9] DEPRESSIVE DISORDER NEC [F32.9] JOINT PAIN-FOREARM [M25.539] INVALID FOR* GANGLION UNSPECIFIED [M67.40] INVALID FOR* HEMORRHOIDS EXTERNAL THROMBOSED [K64.5] INVALID FOR* Abdominal Pain, Unspecified Site [R10.9] Unspecified Essential Hypertension [I10] Abdominal Pain, Epigastric [R10.13] Nausea AND Vomiting [R11.2] Sprain and strain of unspecified site of foot [*INVALID FOR* Pain in limb [M79.609] INVALID FOR* Enthesopathy of ankle and tarsus, unspecified [*INVALID FOR* 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 Hypertension goal BP (blood pressure) < 140/90 * Hyperlipidemia [E78.5] Inflamed skin tag [L91.8] INVALID FOR*12/11/2016 Obesity [E66.9] INVALID FOR* CECILY (obstructive sleep apnea) [G47.33] INVALID FOR* Left-sided low back pain with left-sided sciati*INVALID FOR* Left buttock pain [M79.1] INVALID FOR* Ischial bursitis of left side [M70.72] INVALID FOR* Gallbladder polyp [K82.4] INVALID FOR* Internal hemorrhoids [K64.8] INVALID FOR* Diverticulosis of large intestine without hemor*INVALID FOR* Hyperplastic colonic polyp [K63.5] INVALID FOR* Difficult intubation [T88.4XXA] INVALID FOR* Difficult airway [T88.4XXA] INVALID FOR* More... Primary osteoarthritis of both hips [M16.0] INVALID FOR* Piriformis syndrome, left [G57.02] INVALID FOR* Trochanteric bursitis of both hips [M70.61, M70*INVALID FOR* Other instructions from your clinician: Post-Op Nail Instructions Minimize activity until the anesthesia wears off (about 2-8 hours). Increase activity to tolerance Remove bandage tomorrow Soak affected toe/foot in epsom salts for 15-20 minutes twice daily After soaking, apply antibiotic ointment (OTC Neosporin) to affected toe and re bandage OTC Ibuprofen if having pain, provided you have no allergies or intolerance to NSAIDS Mild drainage, redness, and blood is expected, but if you expeirence severe pain, increase in drainage, swelling, or red streaking please contact our office immediately Feel free to contact office as well if you have any questions/concerns [phone], ask for Podiatry Nurse Letter Text Department of Podiatry Dr. Cheyenne Saucedo [address] [place], [place] [address] 01/01/2018 TO WHOM IT MAY CONCERN: This is to confirm that Twin Newman had an appointment and was seen at the [facility] in the Department of Podiatry by Dr. Cheyenne Saucedo on 01/01/2018 and may return to work on 01/01/18. Twin underwent minor procedure on toenails today. Please allow Twin to work half day on 01/01/18. Sincerely yours, Dr. Cheyenne Saucedo Encounter Status:Closed by CHEYENNE SAUCEDO [facility] on 01/01/18 PROGRESS Observed: 12/15/2017 Status: COMPLETED Source: [place] 12:[address] [facility] REPOSITORY HNO ID: [id number] Author: Vadim Gutierrez Service: (none) Author Type: Physician Type: Progress Notes Filed: 12/15/2017 12:36 PM Note Text: Did not need seen. Just requested lab draw TESTOSTERONE Collected: 12/14/2017 Status: F Source: [place] 12:[address] [facility] REPOSITORY TYPE CODE TESTS RESULT OUT OF REFERENCE UNITS RANGE LAB TESTO 193-824 ng/dL Testosterone 259 Result Comment: A testosterone level in the 193-320 ng/dL range with associated clinical symptoms is considered low and may indicate hypogonadism (from NEJM 2010 363:123-135). Results >320 ng/dL are considered normal. Performed By: #### TESTO #### [facility] [address] [place] [address] CNOV Observed: 12/14/2017 Status: COMPLETED Source: [place] 12:[address] [facility] REPOSITORY Office Visit (FAMPWS) REYESTWIN ([id number]) 1965 M Date Time Provider Department 12/14/17 12:40 PM VADIM GUTIERREZ During your visit today, we recorded the following information about you: Vadim Gutierrez MD 12/15/2017 12:36 PM Signed Did not need seen. Just requested lab draw Referring Provider: SELF [[id number]] Allergies As of Date: 12/14/2017 Noted Allergy Reaction FLEXERIL (CYCLOBENZAPRINE HCL) 12/20/2012 8 - GI Upset TRAMADOL 12/16/2014 8 - GI Upset VICODIN (HYDROCODONE-ACETAMINOPHE*12/13/2009 8 - GI Upset Date Reviewed: 11/26/2017 Reviewed by: Ksenia Crenshaw RN - Fully Assessed Primary Visit Diagnosis:Fatigue, unspecified type [R53.83] Order(s):TESTOSTERONE TOTAL [SQTESTO] Order #: [id number]. #:[id number] Prescriptions as of 12/14/2017 Sig: LOSARTAN 100 MG-HYDROCHLOROTH* TAKE 1 TABLET BY MOUTH ONCE D* CICLOPIROX 0.77 % TOPICAL CRE* Apply 1 application to affect* OMEPRAZOLE 40 MG CAPSULE,BRYNN* Take 1 capsule by mouth once * DULOXETINE 60 MG CAPSULE,BRYNN* TAKE 1 CAPSULE BY MOUTH ONCE * TIZANIDINE 4 MG TABLET Take 1 tablet by mouth every * ZOLPIDEM 10 MG TABLET Take 1 tablet by mouth daily * VENTOLIN HFA 90 MCG/ACTUATION* INHALE 2 PUFFS INSTRUCTED * CARVEDILOL 25 MG TABLET TAKE 2 TABLETS BY MOUTH TWICE* BUPROPION XL 150 MG TAB Take 1 tablet by mouth once d* COMPRESSION STOCKING, KNEE HI* Compression to be 20-30 DX:* ATORVASTATIN 40 MG TABLET Take 2 tablets by mouth once * CPAP Initiate Auto PAP @ 5/20 cm o* Problem List As Of Date 12/14/2017 Noted Resolved DYSURIA [R30.0] INVALID FOR* Prostatitis, unspecified [N41.9] INVALID FOR*12/11/2016 TOBACCO USE DISORDER [F17.200] ESOPHAGEAL REFLUX [K21.9] DEPRESSIVE DISORDER NEC [F32.9] JOINT PAIN-FOREARM [M25.539] INVALID FOR* GANGLION UNSPECIFIED [M67.40] INVALID FOR* HEMORRHOIDS EXTERNAL THROMBOSED [K64.5] INVALID FOR* Abdominal Pain, Unspecified Site [R10.9] Unspecified Essential Hypertension [I10] Abdominal Pain, Epigastric [R10.13] Nausea AND Vomiting [R11.2] Sprain and strain of unspecified site of foot [*INVALID FOR* Pain in limb [M79.609] INVALID FOR* Enthesopathy of ankle and tarsus, unspecified [*INVALID FOR* 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 Hypertension goal BP (blood pressure) < 140/90 * Hyperlipidemia [E78.5] Inflamed skin tag [L91.8] INVALID FOR*12/11/2016 Obesity [E66.9] INVALID FOR* CECILY (obstructive sleep apnea) [G47.33] INVALID FOR* Left-sided low back pain with left-sided sciati*INVALID FOR* Left buttock pain [M79.1] INVALID FOR* Ischial bursitis of left side [M70.72] INVALID FOR* Gallbladder polyp [K82.4] INVALID FOR* Internal hemorrhoids [K64.8] INVALID FOR* Diverticulosis of large intestine without hemor*INVALID FOR* Hyperplastic colonic polyp [K63.5] INVALID FOR* Difficult intubation [T88.4XXA] INVALID FOR* Difficult airway [T88.4XXA] INVALID FOR* More... Primary osteoarthritis of both hips [M16.0] INVALID FOR* Piriformis syndrome, left [G57.02] INVALID FOR* Trochanteric bursitis of both hips [M70.61, M70*INVALID FOR* Encounter Status:Closed by VADIM GUTIERREZ MD on 12/15/17 PROGRESS Observed: 11/26/2017 Status: COMPLETED Source: [place] 10:[address] [facility] REPOSITORY HNO ID: [id number] Author: Cheyenne Saucedo Service: (none) Author Type: Physician Type: Progress Notes Filed: 11/26/2017 12:30 PM Note Text: Initial Podiatric Office Visit: Chief Complaint: This 52 year old male who presents with chief complaint:painful ingrowing toenails of b/l hallux HPI Patient presents to clinic for evaluation of b/l hallux toenails. He complains of ingrowing toenail of b/l hallux toenail in which he treats himself with digging them out. He is starting to get pain and would rather have them removed. He desires to have the entire toenail removed of b/l hallux. Patient denies being diabetic. Patient reports to smoking 1/2 pack of cigarettes/day. Patient denies any cramping of toes or cold toes. He has had ingrowing toenails on the right 2nd toe and had successful matrixectomy in past. PAIN EVALUATION 11/26/2017 Pain Score: 4 Pain Location: Other: See Comment toenails of B/L hallux Description: Aching Duration Amount of Time: - several Duration Units: Years Frequency: Continuous Intervention: Other: See comment Pt states nothing helps Hemoglobin A1C (%) Date Value 12/18/2016 6.0 09/17/2014 5.9 PCP: Vadim Gutierrez MD PAST MEDICAL HISTORY Diagnosis Date - Abdominal pain, epigastric - Abdominal pain, unspecified site - Anemia - Depressive disorder, not elsewhere classified - Difficult airway 02/05/2017 could not intubate could not ventilate - Difficult intubation 02/05/2017 - DVT (deep venous thrombosis) (HCC) 11/27/12 of right calf - Esophageal reflux - Gallbladder polyp - Hyperlipidemia 2011 - Hypertension - Insomnia - MGUS (monoclonal gammopathy of unknown significance) - Nausea AND vomiting - CECILY (obstructive sleep apnea) 01/25/2015 - Snoring - Stroke (HCC) - Tobacco use disorder - Transient ischemic attack (TIA) - Unspecified essential hypertension Current Outpatient Prescriptions: Omeprazole (PRILOSEC) 40 mg capsule Take 1 capsule by mouth once daily. DULoxetine (CYMBALTA) 60 mg capsule TAKE 1 CAPSULE BY MOUTH ONCE DAILY. tiZANidine (ZANAFLEX) 4 mg tablet Take 1 tablet by mouth every 8 hours as needed (muscle spasms). zolpidem (AMBIEN) 10 mg tab Take 1 tablet by mouth daily at bedtime for 90 days. VENTOLIN HFA 90 mcg/actuation inhaler INHALE 2 PUFFS INSTRUCTED EVERY 6 HOURS NEEDED FOR WHEEZING/SHORTNESS OF BREATH. losartan-hydrochlorothiazide (HYZAAR) 100-25 mg per tablet Take 1 tablet by mouth once daily. carvedilol (COREG) 25 mg tablet TAKE 2 TABLETS BY MOUTH TWICE DAILY. buPROPion XL (WELLBUTRIN XL) 150 mg 24 hr tablet Take 1 tablet by mouth once daily. Comp Stocking,Knee,Regular,Sml (T.E.D. KNEE [id number]) misc Compression to be 20-30 DX: venous insufficiency CPAP Initiate Auto PAP @ 5/20 cm of water with humidification. Mask (per patient preference) optional chin strap (if indicated) , filters, tubing, humidifier and lifetime supplies. Please fax downloads to [phone]. atorvastatin (LIPITOR) 40 mg tablet Take 2 tablets by mouth once daily. No current facility-administered medications for this visit. ALLERGIES Allergen Reactions - Flexeril [Cyclobenz* GI Upset - Tramadol GI Upset - Vicodin [Hydrocodon* GI Upset PAST SURGICAL HISTORY Procedure Laterality Date - CARPAL TUNNEL Bilateral 2015 - CHOLECYSTECTOMY 04/02/2017 laparoscopic cholecystectomy with cholangiograms R Cebul - COLONOSCOP W/ OR W/O [facility] SPEC Colonoscopy - COLONOSCOPY 01/02/2017 - EGD W/O [facility] SPECIMEN W/BX 04/04/07 - EGD W/O OR W/BRUSH/WASH 01/03/2013 EGD - G-ESOPH REFLX TST W/ELECTROD 04/04/07 - PAST SURGICAL HISTORY OF excision lymph node - PAST SURGICAL HISTORY OF vasectomy - PAST SURGICAL HISTORY OF 2009 left knee surgery - PAST SURGICAL HISTORY OF 2011 right foot surgery - PAST SURGICAL HISTORY OF Left 2016 knee surgery, fillers used FAMILY HISTORY Problem Relation Age of Onset - Cancer Mother kidney - Cancer Father brain - Cancer Brother testicle - Cancer Sister non hodgkins lymphoma Social History Marital status: Spouse name: Years of education: Number of children: 1 Occupational History Occupation Employer Comment [employer] Social History Main Topics Smoking status: Current Every Day Smoker Packs/day: 0.50 Years: 30.00 Types: Cigarettes Start date: 12/21/1986 Smokeless status: Never Used Alcohol use: No Drug use: No Sexual activity: Yes Partners with: Female control/protection: Surgical REVIEW OF SYSTEMS GENERAL: Negative for Malaise, significant weight loss, fever RESPIRATORY: Negative for cough, wheezing and shortness of breath CARDIOVASCULAR: Negative for chest pain, leg swelling and palpitations GI: Negative for abdominal discomfort, blood in stools or black stools and change in bowel habits : Negative for dysuria, frequency and incontinence MUSCULOSKELETAL: Negative for joint pain or swelling, back pain, and muscle pain. SKIN: Negative for lesions, rash, and itching. HEMATOLOGY/LYMPHOLOGY Negative for prolonged bleeding, bruising easily, and swollen nodes. ENDOCRINE: Negative for cold or heat intolerance, polyuria, polydipsia and goiter. NEURO: negative Physical Exam: Constitutional: Pt is a well developed 52 year old male who is alert, oriented and cooperative Eyes: Following during examination. No redness or drainage. Respiratory: RR normal and nonlabored. Even breathing. No evidence of distress or shortness of breath. Psychology: Patient is engaged during conversation. Normal affect and mood. Does not appear depressed or anxious during encounter. Vascular: Dorsalis pedis and posterior tibial pulses palpable left and very faint on right Capillary Fill time < 5 seconds to digits 1-5 b/l Skin temperature warm to warm proximal to distal b/l Hair growth present to digits Neurological: intact light touch/epicritic sensation b/l intact protective sensation no significant neurological deficits Dermatological: B/l hallux toenail is thick and dystrophic. No local signs noted to b/l hallux. Webspaces 1-4 b/l are scaly. Skin appears well hydrated and supple. good color, texture, turgor. No open lesions present. No callosities present. Musculoskeletal/Orthopaedic: Patient has pain to palpation of b/l hallux toenails Foot type is neutral structurally AJ ROM is full with knee extended and flexed 1st MPJ is full when loaded and no pain or crepitus are noted with ROM. MTJ, STJ are full and free of pain and crepitus. +5/5 muscle strength dorsiflexion, plantarflexion, inversion, eversion b/l ASSESSMENT: (B35.1) Onychomycosis (primary encounter diagnosis) (I73.9) PAD (peripheral artery disease) ([facility]) (B35.3) Tinea pedis of both feet PLAN: 1. History and physical examination performed. 2. Discussed discoloration and pain of b/l hallux toenail. On exam, his dp and pt pulses are much stronger on left lower extremity compared to right. Prior to any removal of toenails, I would strongly recommend he get pvr to access ability to heal a toenail procedure. Secondly, I would strongly advise prior to any removal of toenails that he refrain from smoking for at least 2 weeks to increase chances of healing. I informed patient that given smoking, he could be at risk of slow healing, developing osteomyelitis from open wound and result in amputation. 3. B/l scaling of toes, could be related to tinea pedis. Will rx loprox. 4. Will notify patient of pvr results. Cheyenne Saucedo DPM PROGRESS Observed: 11/20/2017 Status: COMPLETED Source: [place] 12:38 PM [facility] [place] REPOSITORY HNO ID: [id number] Author: Lucia Pond (Pa-C) Mumtaz Service: (none) Author Type: Physician Metal Flow Coordinator Type: Progress Notes Filed: 11/20/2017 4:22 PM Note Text: 52 year old male with c/o 1. Left ischial pain persists. Got about 2-3 days of relief from last OMT. Trochanteric bursitis was improved for a few weeks. Mild pain bilateral trochanters. Has seen chiropractor over last year. Asking for MRI. Worried about cancer due to family hx of cancer in mother and father in their forties (kideny and brain). Sister who works in oncology told him to ask for scanning. Patient identifies a hardened pocket over the ischium on xray. Feels this needs further evaluation. XR shows mild calcifications throughout pelvis and mild joint space loss: this was reviewed with patient viewing films. Pain occurs worst when he has been sitting for prolonged periods playing games on the computer. 2. GERD controlled. Minimal use of omeprazole: asking for refills. HISTORIES FAMILY HISTORY Problem Relation Age of Onset - Cancer Mother kidney - Cancer Father brain - Cancer Brother testicle - Cancer Sister non hodgkins lymphoma PAST MEDICAL HISTORY Diagnosis Date - Abdominal pain, epigastric - Abdominal pain, unspecified site - Anemia - Depressive disorder, not elsewhere classified - Difficult airway 02/05/2017 could not intubate could not ventilate - Difficult intubation 02/05/2017 - DVT (deep venous thrombosis) (HCC) 11/27/12 of right calf - Esophageal reflux - Gallbladder polyp - Hyperlipidemia 2011 - Hypertension - Insomnia - MGUS (monoclonal gammopathy of unknown significance) - Nausea AND vomiting - CECILY (obstructive sleep apnea) 01/25/2015 - Snoring - Stroke (HCC) - Tobacco use disorder - Transient ischemic attack (TIA) - Unspecified essential hypertension PAST SURGICAL HISTORY Procedure Laterality Date - CARPAL TUNNEL Bilateral 2015 - CHOLECYSTECTOMY 04/02/2017 laparoscopic cholecystectomy with cholangiograms R Cebul - COLONOSCOP W/ OR W/O [facility] SPEC Colonoscopy - COLONOSCOPY 01/02/2017 - EGD W/O [facility] SPECIMEN W/BX 04/04/07 - EGD W/O OR W/BRUSH/WASH 01/03/2013 EGD - G-ESOPH REFLX TST W/ELECTROD 04/04/07 - PAST SURGICAL HISTORY OF excision lymph node - PAST SURGICAL HISTORY OF vasectomy - PAST SURGICAL HISTORY OF 2009 left knee surgery - PAST SURGICAL HISTORY OF 2011 right foot surgery - PAST SURGICAL HISTORY OF Left 2016 knee surgery, fillers used Social History Marital status: Spouse name: Years of education: Number of children: 1 Occupational History Occupation Employer Comment [employer] Social History Main Topics Smoking status: Current Every Day Smoker Packs/day: 0.50 Years: 30.00 Types: Cigarettes Start date: 12/21/1986 Smokeless status: Never Used Alcohol use: No Drug use: No Sexual activity: Yes Partners with: Female control/protection: Surgical ACTIVE PROBLEM LIST Dysuria Tobacco Use Disorder Esophageal Reflux Depressive Disorder, Not Elsewhere Classified Pain in Joint, Forearm GANGLION UNSPECIFIED HEMORRHOIDS EXTERNAL THROMBOSED Abdominal Pain, Unspecified Site Unspecified Essential Hypertension Abdominal Pain, Epigastric Nausea AND Vomiting Sprain of Foot, Unspecified Site Pain in Limb Enthesopathy of Ankle and Tarsus, Unspecified Herpes Sinus Tarsi Syndrome Dvt, Lower Extremity, Distal (Hcc) Anemia Pigmented Purpuric Dermatosis Hypertension Goal Bp (Blood Pressure) < 140/90 Hyperlipidemia Obesity Cecily (Obstructive Sleep Apnea) Left-Sided Low Back Pain With Left-Sided Sciatica Left Buttock Pain Ischial Bursitis of Left Side Gallbladder Polyp Internal Hemorrhoids Diverticulosis of Large Intestine Without Hemorrhage Hyperplastic Colonic Polyp Difficult Intubation Difficult Airway Primary Osteoarthritis of Both Hips Piriformis Syndrome, Left Trochanteric Bursitis of Both Hips Current Outpatient Prescriptions: Omeprazole (PRILOSEC) 40 mg capsule Take 1 capsule by mouth once daily. Disp: 90 capsule Rfl: 1 DULoxetine (CYMBALTA) 60 mg capsule TAKE 1 CAPSULE BY MOUTH ONCE DAILY. Disp: 90 capsule Rfl: 3 tiZANidine (ZANAFLEX) 4 mg tablet Take 1 tablet by mouth every 8 hours as needed (muscle spasms). Disp: 30 tablet Rfl: 3 zolpidem (AMBIEN) 10 mg tab Take 1 tablet by mouth daily at bedtime for 90 days. Disp: 30 tablet Rfl: 2 VENTOLIN HFA 90 mcg/actuation inhaler INHALE 2 PUFFS INSTRUCTED EVERY 6 HOURS NEEDED FOR WHEEZING/SHORTNESS OF BREATH. Disp: 18 Inhaler Rfl: 2 losartan-hydrochlorothiazide (HYZAAR) 100-25 mg per tablet Take 1 tablet by mouth once daily. Disp: 90 tablet Rfl: 1 carvedilol (COREG) 25 mg tablet TAKE 2 TABLETS BY MOUTH TWICE DAILY. Disp: 360 tablet Rfl: 3 buPROPion XL (WELLBUTRIN XL) 150 mg 24 hr tablet Take 1 tablet by mouth once daily. Disp: 30 tablet Rfl: 2 atorvastatin (LIPITOR) 40 mg tablet Take 2 tablets by mouth once daily. Disp: 90 tablet Rfl: 3 Comp Stocking,Knee,Regular,Sml (T.E.D. KNEE [id number]) misc Compression to be 20-30 DX: venous insufficiency Disp: 2 Each Rfl: 6 CPAP Initiate Auto PAP @ 5/20 cm of water with humidification. Mask (per patient preference) optional chin strap (if indicated) , filters, tubing, humidifier and lifetime supplies. Please fax downloads to [phone]. Disp: 1 Device Rfl: 0 No current facility-administered medications for this visit. There are no preventive care reminders to display for this patient. EXAM: BP 128/82 Pulse 68 Temp 36.3 ?C (97.4 ?F) (Tympanic) Resp 16 Wt 103.4 kg (228 lb) BMI 34.56 kg/m2 Pleasant overweight adult male in no acute distress. Alert and oriented all spheres. Normal affect and cognition. Speech normal. No deficits to learning or comprehension. Skin warm, dry, pink to lips and nailbeds. Normal turgor. Respirations regular and unlabored. Extrem: no clubbing, cyanosis, edema. Extremities are warm and pink with prompt capillary refill. ASSESSMENT/PLAN: 1. Ischial pain, left - ICD9: 719.45, ICD10: M25.552 Most of visit was consultation. Patient feels PT is a waste of his money. Discussed MRI: at this time I don't feel there is justification for the test. Recommended review with pain management. Emphasized PT is different from chiropractic therapy. He needs to adjust lifestyle with ergonomic chair, frequent breaks to avoid pressure/ irritation to ischium. - CONSULT TO PAIN MGT ANESTHESIA Lucia Pandya PA-C ALLERGIES ALLERGIES DATE TYPE / NAME / CODE REACTION SEVERITY SOURCE CODE 10/17/2018 Drug hydrocodone Upset Stomach Unknown [place] Allergy/41 bitartrate/[id number] [facility] [id number]( (RXNORM) [facility]) Repository 10/17/2018 Drug tramadol/[id number](R Upset Stomach Unknown [place] Allergy/41 XNORM) [facility] [id number]([facility]) Repository 10/17/2018 Drug cyclobenzaprine/F0060 Upset Stomach Unknown [place] Allergy/41 36296(RXNORM) [facility] 3837344([facility]) Repository 07/12/2018 Drug acetaminophen/A251687 Upset Stomach Unknown [place] Allergy/41 605(RXNORM) [facility] 2842312([facility]) Repository 12/16/2014 DRUG TRAMADOL GI UPSET [address] [id number]([facility] [place]) 12/20/2012 DRUG CYCLOBENZAPRINE HCL GI UPSET [address] [facility]12[facility] 12/13/2009 DRUG/85537 HYDROCODONE-ACETAMINO GI UPSET [facility] 1003(SN[facility]EN Other [place] D CT) Repository ENCOUNTERS ENCOUNTERS ADMIT/DISCHARGE ACCOUNT ADMITTING ENCOUNTER LOCATION SOURCE NUMBER CLASS 10/17/2018 [id number] Ambulatory [facility] ing:PSN Repository 10/17/2018/10/17/19 [id number] Emergency [address] ing:ED Repository 10/15/2018 [id number] Ambulatory BMSBuilding:Alison Bustos [place].[facility] Repository 10/15/2018 [id number] Ambulatory [facility] ing:[facility] Repository 10/02/2018/10/02/19 [id number] Emergency [address] Other [place] Repository 09/30/2018 [id number] Ambulatory [facility] ing:US Repository 09/29/2018/09/29/20 [id number] Emergency [address] ing:ED Repository 09/26/2018/09/27/20 [id number] Ambulatory [address] Main [place] Repository 09/26/2018/09/26/20 [id number] Ambulatory [address] Main [place] Repository 09/25/2018/09/25/20 [id number] Ambulatory [address] Main [place] Repository 09/25/2018/09/25/20 [id number] Ambulatory [address] Main [place] Repository 09/25/2018/09/25/20 [id number] Ambulatory [address] Main [place] Repository 09/25/2018/09/26/20 [id number] Ambulatory [address] Main [place] Repository 09/25/2018 [id number] Ambulatory [facility] Main [place] Repository 09/25/2018 [id number] Ambulatory [facility] Main [place] Repository 09/13/2018/09/13/20 [id number] Ambulatory BMSBuilding:B Sharla 18 MS.[facility] Repository 08/30/2018/08/30/20 [id number] Ambulatory BMSBuilding:B hSarla 18 MS.[facility] Repository 07/24/2018/07/25/20 [id number] Ambulatory [address] Main [place] Repository 07/12/2018/07/12/20 [id number] Emergency [address] Hospital ing:ED Repository 07/08/2018/07/08/20 [id number] Ambulatory [address] Main [place] Repository 06/28/2018/06/28/20 [id number] Ambulatory [address] Main [place] Repository 06/28/2018/06/28/20 [id number] Ambulatory [address] Main [place] Repository 06/28/2018/07/01/20 [id number] Ambulatory [address] Main [place] Repository 05/09/2018 [id number] Ambulatory BMSBuilding:Alison [place]ustos MS.[facility] Repository 04/29/2018/07/30/20 [id number] Ambulatory BMSBuilding:B Sharla 18 [facility] Repository 04/25/2018/04/25/20 [id number] Emergency [address] Hospital ing:ED Repository 04/18/2018 [id number] Ambulatory BMSBuilding:B [place]la [facility] Repository 04/18/2018 [id number] Ambulatory BMSBuilding:B [place] [facility] Repository 04/17/2018 [id number] Ambulatory [facility] Hospital ing:[facility]SP Repository 04/17/2018 [id number] Ambulatory BMSBuilding:W [facility] Repository 04/17/2018/04/18/20 [id number] [place], Ambulatory [address] Hospital ing:CLSPRoom: Repository [id number] 04/17/2018 [id number] Ambulatory BMSBuilding:W [facility] Repository 04/12/2018 [id number] Ambulatory BMSBuilding:B [place] [facility] Repository 04/11/2018/04/12/20 [id number] Ambulatory [address] Repository 04/10/2018/04/10/20 [id number] Ambulatory BMSBuilding:W [address] Repository 04/09/2018/04/10/20 [id number] [facility], Ambulatory [address] Hospital ing:PCURoom: Repository DIH699Bhc: 1 04/09/2018 [id number] [facility], Ambulatory BMSBuilding:B Sharla [place] MS.[facility] Repository 04/09/2018 [id number] [facility], Ambulatory BMSBuilding:B Sharlajaquelin [place] [facility] Repository 04/09/2018 [id number] [facility], Ambulatory BMSBuilding:B Sharlajaquelin [place] [facility] Repository 04/09/2018 [id number] [facility], Ambulatory BMSBuilding:B Sharla Baker MS.[facility] Repository 04/05/2018 [id number] Ambulatory [facility] Hospital ing:[facility] Repository 04/05/2018 [id number] Ambulatory BMSBuilding:[facility] Repository 03/28/2018/03/28/20 [id number] Ambulatory BMSBuilding:Alison Bustos 18 [facility] Repository 03/25/2018/03/25/20 [id number] Ambulatory BMSBuilding:Alison Bustos 18 [facility] Repository 03/20/2018/03/21/20 [id number] Ambulatory [address] Repository 03/19/2018/03/19/20 [id number] Ambulatory [address] Repository 03/06/2018/03/07/20 [id number] Ambulatory [address] ing:SDC Repository 03/06/2018 [id number] Ambulatory BMSBuilding:[facility] Repository 03/06/2018 [id number] Ambulatory BMSBuilding:[facility] Repository 03/05/2018 [id number] Ambulatory BMSBuilding:[facility] Repository 02/26/2018/02/28/20 [id number] Ambulatory [address] Repository 02/21/2018/02/23/20 [id number] SIMONA Ambulatory [address] Repository 02/20/2018/02/22/20 [id number] Emergency [address] Hospital ing:ED Repository 02/20/2018 [id number] Ambulatory [facility] Main [place] Repository 02/19/2018/02/21/20 [id number] Ambulatory [address] Main [place] Repository 01/17/2018/01/18/20 [id number] Ambulatory [address] Main [place] Repository 01/16/2018/01/22/20 [id number] Ambulatory [address] Main [place] Repository 01/01/2018/01/03/20 [id number] Ambulatory [address] Main [place] Repository 12/14/2017/12/16/19 [id number] Ambulatory [address] Main [place] Repository 12/07/2017/12/08/19 [id number] Ambulatory [address] Main [place] Repository 11/26/2017/03/02 [id number] Ambulatory [address] Repository 11/20/2017/11/21/19 [id number] Ambulatory [address] Repository PAYERS PAYERS ENCOUNTER GUARANTOR PAYER SUBSCRIBER SOURCE 10/17/2018 TWIN MARTELL1 Primary TWIN Chen WHITEDOB: Sharla KEMI Insurance:ANTHEMPolic [id number] Number: Hospital [id number]: (330) [id number] Repository [phone] () Date:3730-86-04LZ [address] [place] [address] 46222TE: 10/17/2018 Secondary NOT GIVENUNK Sharla Insurance:SELF PAY [facility] Hospital Number: Effective Repository Date:2018-09-30 10/17/2018 TWIN MARTELL1 Primary TWIN Chen WHITEDOB: [place] KEMI Insurance:ANTHEMPolic [id number] [place] Number: Hospital [id number]: (330) [id number] Repository [phone] () Date:2082-00-06FZ [id number] [place] [address] 81109SU: 10/17/2018 Secondary NOT GIVENUNK Sharla Insurance:SELF PAY [facility] Effective Repository Date:2018-10-17 10/15/2018 TWIN MARTELL1 Primary TWIN Chen WHITEDOB: [place] KEMI Insurance:ANTHEMPolic [id number] [place] Number: Hospital [id number]: (330) [id number] Repository [phone] () Date:[id number] [id number] [place] [address] 15632UC: 10/15/2018 Secondary NOT GIVENUNK [place] Insurance:SELF PAY [facility] Hospital Number: Effective Repository Date:2018-10-15 10/15/2018 TWIN MARTELL1 Primary TWIN Chen WHITEDOB: [place] KEMI Insurance:ANTHEMPolic [id number] [place] Number: Hospital [id number]: (330) [id number] Repository [phone] (HP) Date:1278-51-92DA [address] [place] [address] 46198QR: 10/15/2018 Secondary NOT GIVENUNK [place] Insurance:SELF PAY [facility] Number: Effective Repository Date:2018-09-30 09/30/2018 TWINElana MARTELL1 Primary TWIN Gustavo WHITEDOB: [place] KEMI Insurance:ANTHEMPolic [id number] [place] Number: Hospital [id number]: (330) [id number] Repository [phone] () Date:1039-22-55CN [address] [place] [address] 93703IL: 09/30/2018 Secondary NOT GIVENUNK [place] Insurance:SELF PAY [facility] Hospital Number: Effective Repository Date:2018-09-30 09/29/2018 TWIN K [id number] Primary TWIN K WHITEDOB: [place] KEMI Insurance:ANTHEMPolic [id number] [place] Number: Hospital [id number]: (330) [id number] Repository [phone] () Date:7879-25-66TJ [address] [place] [address] 86374BD: 09/29/2018 Secondary NOT GIVENUNK [place] Insurance:SELF PAY [facility] Number: Effective Repository Date:2018-09-29 09/13/2018 TWIN K [id number] Primary TWIN K WHITEDOB: [place] KEMI Insurance:ANTHEMPolic [id number] [place] Number: Hospital [id number]: (330) [id number] Repository [phone] () Date:2128-01-67NG [address] [place] [address] [place] [address]MO: 09/13/2018 Secondary NOT GIVENUNK Sharla Insurance:SELF PAY [facility] Hospital Number: Effective Repository Date:2018-09-13 08/30/2018 TWIN K [id number] Primary TWIN K WHITEDOB: [place] KEMI Insurance:ANTHEMPolic [id number] [place] Number: Hospital [id number]: (330) [id number] Repository [phone] (HP) Date:6866-55-94IY [address] [place] [address] 75284PE: 08/30/2018 Secondary NOT GIVENUNK [place] Insurance:SELF PAY [facility] Number: Effective Repository Date:2018-08-30 07/12/2018 TWIN K [id number] Primary TWIN K WHITEDOB: [place] KEMI Insurance:ANTHEMPolic [id number] [place] Number: Hospital [id number]: (330) [id number] Repository [phone] () Date:0944-09-00ZB [address] [place] [address] 78938IG: 07/12/2018 Secondary NOT GIVENUNK Sharla Insurance:SELF PAY [facility] Number: Effective Repository Date:2018-07-12 05/09/2018 TWIN K [id number] Primary TWIN K WHITEDOB: [place]EMI Insurance:ANTHEMPolic [id number] [place] Number: Hospital 25226Wxe: (330) [id number] Repository [phone] () Date:8758-39-63AW [id number] [place] [address] 32832QP: 05/09/2018 Secondary NOT GIVENUNK [place] Insurance:SELF PAY Community [facility] Number: Effective Repository Date:2018-04-18 04/29/2018 TWIN K [id number] Primary TWIN K WHITEDOB: [facility] [facility] [place]EM[place] Insurance:ANTHEMPolic [id number] [place] Number: Hospital [address]Ohl: (330) [id number] Repository [phone] () Date:6555-24-75BP [address] [place] [address] 58473LF: 04/29/2018 Secondary NOT GIVENUNK Sharla Insurance:SELF PAY [facility] Number: Effective Repository Date:2018-04-29 04/25/2018 TWIN K [id number] Primary TWIN K WHITEDOB: [place] Insurance:ANTHEMPolic [id number] [place] Number: Hospital [id number]: (330) [id number] Repository [phone] (HP) Date:9203-76-38XQ [address]YGVVSQN, [place] [address]WF: 04/25/2018 Secondary NOT GIVENUNK [place] Insurance:SELF PAY Community [facility] Number: Effective Repository Date:2018-04-25 04/18/2018 TWIN K [id number] Primary TWIN K WHITEDOB: [place] Insurance:ANTHEMPolic [id number] [place] Number: [facility] 08[address]Zdg: (330) [id number] Repository [phone] (HP) Date:5324-19-04OB [address]RNGOGKB, [place] [address]GT: 04/18/2018 Secondary NOT GIVENUNK Shar[place] Insurance:SELF PAY [facility] Number: Effective Repository Date:2018-04-15 04/18/2018 TWIN K [id number] Primary TWIN K WHITEDOB: [place] Insurance:ANTHEMPolic [id number] [place] Number: Hospital 48[address]Fmu: (330) [id number] Repository [phone] (HP) Date:1109-30-64ZY [address]MEHGZCL, [place] [address]PT: 04/18/2018 Secondary NOT GIVENUNK [place] Insurance:SELF PAY [facility] Number: Effective Repository Date:2018-04-18 04/17/2018 TWIN K [id number] Primary TWIN K WHITEDOB: [place] Insurance:ANTHEMPolic [id number] [place] Number: [facility] 26[address]Nhb: (330) [id number] Repository [phone] (HP) Date:3216-56-78HZ [address]ZKQCYOU, [place] [address]TJ: 04/17/2018 Secondary NOT GIVENUNK [place] Insurance:SELF PAY [facility] Number: Effective Repository Date:2018-04-05 04/17/2018 TWIN Chen [id number] Primary TWIN Chen WHITEDOB: [place] Insurance:ANTHEMPolic [id number] [place] Number: Hospital [address]Ilj: (330 [id number] Repository [phone] () Date:8653-39-44ER [address] [place] [address]UT: 04/17/2018 Secondary NOT GIVENUNK [place] Insurance:SELF PAY [facility] Number: Effective Repository Date:2018-04-17 04/17/2018 TWINElana MARTELL1 Primary TIWN Chen WHITEDOB: [place] Insurance:ANTHEMPolic [id number] [place] Number: Hospital [id number]: (330) [id number] Repository [phone] () Date:9899-57-58KF [address] [place] [address] 789[address]VC: 04/17/2018 Secondary NOT GIVENUNK Shar[place] Insurance:SELF PAY [facility] Number: Effective Repository Date:2018-04-15 04/17/2018 TWINElana MARTELL1 Primary TWIN Chen WHITEDOB: [facility] Insurance:ANTHEMPolic [id number] [place] Number: Hospital [id number]: (330) [id number] Repository [phone] () Date:5004-86-46YV [address] [place] [address] 877[address]JA: 04/17/2018 Secondary NOT GIVENUNK [place] Insurance:SELF PAY [facility] Number: Effective Repository Date:2018-04-17 04/12/2018 TWIN K [id number] Primary TWIN Chen WHITEDOB: [facility] [facility] [place] Insurance:ANTHEMPolic [id number] [place] Number: Hospital 24[address]Paw: (330) [id number] Repository [phone] (HP) Date:5953-25-82CH [address]HBNRWKS, [place] [address]QN: 04/12/2018 Secondary NOT GIVENUNK [place] Insurance:SELF PAY [facility] Number: Effective Repository Date:2018-04-12 04/10/2018 TWIN MARTELL1 Primary TWIN Chen WHITEDOB: [facility] [facility] [place] Insurance:ANTHEMPolic [id number] [place] Number: Hospital [address]Hum: (330) [id number] Repository [phone] () Date:1934-22-90WH [address]WJKFMCU, [place] [address]YK: 04/10/2018 Secondary NOT GIVENUNK [place] Insurance:SELF PAY [facility] Hospital Number: Effective Repository Date:2018-04-10 04/09/2018 TWINElana MARTELL1 Primary TWIN K WHITEDOB: [place] Insurance:ANTHEMPolic [id number] [place] Number: Hospital 28[address]Szt: (330) [id number] Repository [phone] () Date:1944-37-15QG [address]PVUPNLJ, [place] [address]VC: 04/09/2018 Secondary NOT GIVENUNK [place] Insurance:SELF PAY [facility] Hospital Number: Effective Repository Date:2018-04-09 04/09/2018 TWIN K [id number] Primary TWIN Chen WHITEDOB: [place] Insurance:ANTHEMPolic [id number] [place] Number: Hospital 705[address]Zvh: (330) [id number] Repository [phone] () Date:0212-80-11DK [address]QZLYONI, [place] [address]EC: 04/09/2018 Secondary NOT GIVENUNK [place] Insurance:SELF PAY [facility] Hospital Number: Effective Repository Date:2018-04-09 04/09/2018 TWIN K [id number] Primary TWIN Gustavo WHITEDOB: [place] Insurance:ANTHEMPolic [id number] [place] Number: Hospital [address]Zqi: (330) [id number] Repository [phone] (HP) Date:3702-15-28VF [address]CTLUWBJ [place] [address]FM: 04/09/2018 Secondary NOT GIVENUNK [place] Insurance:SELF PAY [facility] Number: Effective Repository Date:2018-04-09 04/09/2018 TWIN K [id number] Primary TWIN K WHITEDOB: [place] Insurance:ANTHEMPolic [id number] [place] Number: Hospital [id number]: (330) [id number] Repository [phone] (HP) Date:5378-23-17OT [address] [place] [address] [place] [address]QW: 04/09/2018 Secondary NOT GIVENUNK [place] Insurance:SELF PAY Community [facility] Number: Effective Repository Date:2018-04-09 04/09/2018 TWIN K [id number] Primary TWIN K WHITEDOB: [place] Insurance:ANTHEMPolic [id number] [place] Number: Hospital [address]Xyc: (330) [id number] Repository [phone] (HP) Date:5663-32-44IH [address] [place] [address] [place] [address]UC: 04/09/2018 Secondary NOT GIVENUNK [place] [facility] Insurance:SELF PAY Community [facility] Number: Effective Repository Date:2018-04-09 04/05/2018 TWIN K [id number] Primary TWIN K WHITEDOB: [facility] [facility] [place] Insurance:ANTHEMPolic [id number] [place] Number: Hospital 839[address]Nch: (330) [id number] Repository [phone] (HP) Date:8680-11-78CT [address]ZVLGEYJ, [place] [address]WT: 04/05/2018 Secondary NOT GIVENUNK Shar[place] Insurance:SELF PAY Community [facility] Number: Effective Repository Date:2018-04-01 04/05/2018 TWIN K [id number] Primary TWIN K WHITEDOB: [place] Insurance:ANTHEMPolic [id number] [place] Number: Hospital [address]Yqk: (330) [id number] Repository [phone] (HP) Date:3542-09-10MR [address] [address]XU: 04/05/2018 Secondary NOT GIVENUNK [place] Insurance:SELF PAY [facility] Number: Effective Repository Date:2018-04-05 03/28/2018 TWIN K [id number] Primary TWIN K WHITEDOB: [place] Insurance:ANTHEMPolic [id number] [place] Number: Hospital 88[address]Ihw: (330) [id number] Repository [phone] (HP) Date:9408-79-99WR [address] [address]XK: 03/28/2018 Secondary NOT GIVENUNK [place] Insurance:SELF PAY [facility] Number: Effective Repository Date:2018-03-25 03/25/2018 TWIN K [id number] Primary TWIN K WHITEDOB: [place] Insurance:ANTHEMPolic [id number] [place] Number: Hospital 240[address]Mxn: (330) [id number] Repository [phone] (HP) Date:9847-30-39QF [address] [address]KW: 03/25/2018 Secondary NOT GIVENUNK [place] Insurance:SELF PAY [facility] Hospital Number: Effective Repository Date:2018-03-25 03/06/2018 Twin K [id number] Primary Twin K WhiteDOB: [place]EM[place] Insurance:ANTHEMPolic [id number] [place] Number: [facility] [address]Wfy: [id number] Repository [phone] Date:4582-78-49NS [address] (HP) [place] [place] [address]QT: 03/06/2018 Secondary NOT GIVENUNK [place] Insurance:SELF PAY [facility] Number: Effective Repository Date:2018-03-06 03/06/2018 TWIN MARTELL1 Primary TWIN Chen WHITEDOB: [facility] Insurance:ANTHEMPolic [id number] [place] Number: Hospital [id number]: (330) [id number] Repository [phone] () Date:2370-73-58XZ [address] [place] [address] 683[address]WO: 03/06/2018 Secondary NOT GIVENUNK [place] Insurance:SELF PAY [facility] Number: Effective Repository Date:2018-03-06 03/06/2018 TWIN MARTELL1 Primary TWIN Chen WHITEDOB: [facility] Insurance:ANTHEMPolic [id number] [place] Number: Hospital [address]60[address]Bnr: (330) [id number] Repository [phone] () Date:3274-25-10SR [address] [place] [address] 37286BR: 03/06/2018 Secondary NOT GIVENUNK [place] Insurance:SELF PAY [facility] Number: Effective Repository Date:2018-03-06 03/05/2018 TWIN MARTELL1 Primary TWIN Chen WHITEDOB: [place] Insurance:ANTHEMPolic [id number] [place] Number: Hospital [id number]: (330) [id number] Repository [phone] () Date:8177-45-76KT [id number] [place] [address] 977[address]WA: 03/05/2018 Secondary NOT GIVENUNK [place] Insurance:SELF PAY [facility] Number: Effective Repository Date:2018-03-05 02/20/2018 TWINElana MARTELL1 Primary TWIN Chen WHITEDOB: [facility] Insurance:ANTHEMPolic [id number] [place] Number: Hospital 175[address]Ego: (330) [id number] Repository [phone] () Date:0237-79-02PM [address]EIQZXVG, [place] [address]OG: 02/20/2018 Secondary NOT GIVENUNK Shar[place] Insurance:SELF PAY [facility] Effective Repository Date:2018-02-20
== END 2018-10-17 12:55 | disposition home or self-care (01) ==
LOC: ED 10:31
PROVIDERS: Emergency Provider Emergency Medicine; Family Provider Physician Assistant; PCP Physician Assistant
DX: M25.552 Pain in left hip (principal); G89.29 Other chronic pain; M71.9 Bursopathy, unspecified; M16.0 Bilateral primary osteoarthritis of hip; M25.852 Other specified joint disorders, left hip; M25.851 Other specified joint disorders, right hip; I25.10 Atherosclerotic heart disease of native coronary artery without angina pectoris; I10 Essential (primary) hypertension; E78.00 Pure hypercholesterolemia, unspecified; Z79.82 Long term (current) use of aspirin; Z79.899 Other long term (current) drug therapy; Z72.0 Tobacco use
CPT/HCPCS: 73502; 99282

== ENCOUNTER 2018-11-05 02:24 | Observation (INO) | payer BC, SELFPAY ==
[2018-11-05] VITALS (11 sets, daily range): BP systolic 106–149; BP diastolic 49–82; PULSE 71–90; RESP 14–21; TEMP 36.3–36.9; O2SAT 92–96; BMI 39.5; BMI 39.3; BMI 39.6
--- NOTE | 2018-11-05 02:40 | RAD_ITS ---
HISTORY: Chest Pain EXAM:XR Chest 2 Views: COMPARISON: 09/29/2018 FINDINGS: EKG leads in place. Normal heart size. Peribronchial thickening with prominence of the central bronchovascular markings in keeping with asthma/bronchitis. No focal infiltrate. No vascular congestion or pleural effusion. No pneumothorax. The bony thorax appears intact. RAD/Chest PA and Lateral IMPRESSION: Peribronchial thickening with asthma/bronchitis pattern. No pneumonia seen. at 0304 Reported and signed by: Dre Butler MD Electronically Signed: Dre Butler, at 3:03 EST Tel , Service support ,
--- NOTE | 2018-11-05 02:40 | EKG12_ITS ---
Test Reason : CP Blood Pressure : / mmHG Vent. Rate : 085 BPM Atrial Rate : 085 BPM P-R Int : 198 ms QRS Dur : 094 ms QT Int : 374 ms P-R-T Axes : 061 061 039 degrees QTc Int : 445 ms Normal sinus rhythm Normal ECG Confirmed by PALOMA OLEARY, KAMILLE ([id number]), commissioning editor YORDY BOWDEN ([id number] on 11/06/2018 2:02:19 PM Referred By: Alex Garcia Confirmed By:KAMILLE DOW MD
[2018-11-05] MEDS: Aspirin 81 MG TAB.CHEW 324 MG PO (03:04)
[2018-11-05] MEDS: Nitroglycerin Oint 1 INCH PACKET TRANSDERM. (03:05)
[2018-11-05 03:11] LABS: Absolute Lymphocyte Count 3.69 X10^3/ul (0.83-4.51); Absolute Neutrophil Count 4.2 X10^3/uL (2.0-7.7); Basophil# 0.04 X10^3/uL; Basophil% 0.5 % (0-1); Eosinophil# 0.16 X10^3/uL; Eosinophils% 1.8 % (0-5); Hematocrit 41.2 % (40-54); Hemoglobin 13.4 g/dl (13.0-16.5); Lymphocyte # 3.69 X10^3/ul (4.0); Lymphocyte % 41.8 % (19-41); Mean Corp Hgb Conc 32.5 g/gl (32-36); Mean Corpuscular Hgb 32.1 pg (27.0-32.0); Mean Corpuscular Volume 98.8 fL (80-94); Mean Platelet Vol. 8.5 fl (6.2-12.0); Monocyte# 0.69 X10^3/uL; Monocyte% 7.8 % (0-10); Neutrophil # 4.24 X10^3/uL (2.7-7.7); Platelet Count 286 K/mm3 (150-450); RBC Distribution Width CV 14.9 % (11.6-14.6); Red Blood Count 4.17 M/mm3 (4.6-6.2); White Blood Count 8.8 K/mm3 (4.4-11.0)
[2018-11-05 03:12] LABS: Anion Gap 7 (5-15); BUN 25 mg/dL (7-18); BUN/Creat Ratio 19.1 RATIO (10-20); Calcium,Total 9.4 mg/dL (8.5-10.1); Chloride 99 mmol/L (98-107); Creatinine, Serum 1.31 mg/dL (0.70-1.30); EST Glomerular Filtration Rate 61 mL/min (>60); Est Glom Filt Rate - Afr Amer 73 mL/min (>60); Estimated Creatinine Clearance 60.97 ml/min; Glucose 111 mg/dL (74-106); Potassium 3.2 mmol/L (3.5-5.1); Sodium Level 139 mmol/L (136-145)
[2018-11-05 03:14] LABS: Differential Indicated SCAN CRITERIA MET; POSITIVE COUNT NO; POSITIVE DIFFERENTIAL NO; POSITIVE MORPHOLOGY YES
--- NOTE | 2018-11-05 03:38 | ED.DCSUM_ITS ---
- ER Visit Summary Date of Service: 11/05/18 Chief Complaint: Chest pain History of Present Illness: The patient is a 53 M who presents with chest pain. It began about 30 minutes before presentation. It was sudden onset. It woke him from sleep. He describes it as both sharp and aching substernally radiating through to the back. It was 10 out of 10. He took 2 sublingual nitroglycerin and his pain is improved now to 4 out of 10. He does report associated shortness of breath and diaphoresis. He had one episode of nonbloody nonbilious emesis. He notes that over the last 3 weeks he has had multiple near syncopal episodes 1-2 episodes a week usually while on the commode trying to have bowel movement. Physical Examination: Afebrile vitals stable Moist mucous membranes Heart regular rate and rhythm Lungs are clear to auscultation Abdomen soft nontender nondistended 2+ symmetric pitting lower extremity edema Diaphoresis Test Results: EKG shows sinus rhythm at a rate of 85. Labs notable for CO2 of 33.0, BUN 25, creatinine 1.31, potassium 3.2. Troponin negative. Chest x-ray shows an asthma bronchitis pattern. Emergency Department Course and Treatment: Patient was given aspirin here. Nitro paste was applied. On reevaluation he complains of only minimal discomfort. Given classic description of symptoms and known coronary disease he does need admitted to rule out myocardial infarction and undergo further workup. Patient to be discussed with the hospitalist and admitted. Treatment Plan: [] Disposition: Admit Impression: Chest pain This note was generated with [employer] dictation software. It may contain incorrect words, spelling, and punctuation that were not noted in review of the chart prior to signing ED Disposition - Plan for ED Patient: Referrals: Lucia Pandya PA [Primary Care Provider] -
--- NOTE | 2018-11-05 03:55 | HP.PCM_ITS ---
Problem List (1) Unstable angina pectoris Status: Acute (2) CAD (coronary artery disease) Status: Chronic Qualifiers: (3) Chest pain Status: Acute (4) History of coronary artery stent placement Status: Chronic Comment: PTCA/SHELBY of the of mid LCX with a 3.0 x 16 Promus Synergy and PTCA/SHELBY of the Proximal RCA recent occlusion with a 3.5 x 38 Promus Synergy 03/06/18; Promus Synergy 2.25 X 20 to mid PDA and Promus Synergy 3.5 X12 to proximal RPL branch; POA of ostial PBA with no stent 03/18/2018 (5) Atherosclerosis of coronary artery of [place] heart without angina pectoris Status: Chronic Qualifiers: Comment: PTCA/SHELBY of the of mid LCX with a 3.0 x 16 Promus Synergy and PTCA/SHELBY of the Proximal RCA recent occlusion with a 3.5 x 38 Promus Synergy 03/06/18 (6) Nicotine dependence Status: Chronic Qualifiers: (7) Hyperlipidemia Status: Chronic Qualifiers: (8) Hypertension Status: Chronic Qualifiers: History of Present Illness Date of Admission: 11/05/18 Chief Complaint: chest pain The patient is a 53 year old male patient who awoke from sleep with 10/10 non radiating sub sternal chest pain. He states it feels like it did previously when he required stents. He continues to smoke 1/2 PPD. 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 Pain is now 2/10 with nitropaste having improved his pain remarkably. He also has CECILY and his CPAP machine is not working. He will be admitted and cardiology consult obtained. Past Medical History Past Medical History (Chronic Problems): Chronic Problems (Last Reviewed 08/30/18 @ 10:35 by Nasima Orr) CAD (coronary artery disease) (Chronic) History of coronary artery stent placement (Chronic 03/06/18) PTCA/SHELBY of the of mid LCX with a 3.0 x 16 Promus Synergy and PTCA/SHELBY of the Proximal RCA recent occlusion with a 3.5 x 38 Promus Synergy 03/06/18; Promus Synergy 2.25 X 20 to mid PDA and Promus Synergy 3.5 X12 to proximal RPL branch; POA of ostial PBA with no stent 03/18/2018 Atherosclerosis of coronary artery of [place] without angina pectoris (Chronic) PTCA/SHELBY of the of mid LCX with a 3.0 x 16 Promus Synergy and PTCA/SHELBY of the Proximal RCA recent occlusion with a 3.5 x 38 Promus Synergy 03/06/18 Nicotine dependence (Chronic) Hyperlipidemia (Chronic) Hypertension (Chronic) Medical History: Medical History (Last Reviewed 08/30/18 @ 10:35 by Nasima Orr) Chest pain (Acute) R07.9 Abnormal stress test (Acute) R94.39 Atherosclerosis of coronary artery of [place] heart without angina pectoris (Chronic) I25.10 PTCA/SHELBY of the of mid LCX with a 3.0 x 16 Promus Synergy and PTCA/SHELBY of the Proximal RCA recent occlusion with a 3.5 x 38 Promus Synergy 03/06/18 Nicotine dependence (Chronic) F17.200 Hyperlipidemia (Chronic) E78.5 Hypertension (Chronic) I10 DVT (deep venous thrombosis) I82.409 MGUS (monoclonal gammopathy of unknown significance) D47.2 TIA (transient ischemic attack) G45.9 Allergies cyclobenzaprine [From Flexeril] Adverse Reaction (Verified 11/05/18 02:29) Upset Stomach hydrocodone bitartrate [From Vicodin] Adverse Reaction (Verified 11/05/18 02:29) Upset Stomach tramadol Adverse Reaction (Verified 11/05/18 02:29) Upset Stomach Home Medications: Ambulatory Orders Medication Instructions Recorded Zolpidem Tartrate [Ambien] 10 mg PO QHS PRN PRN 01/08/15 Losartan/Hydrochlorothiazide 1 ea PO DAILY 03/09/17 [Losartan-Hctz 100-25 mg Tab] Albuterol IH (ProAir) [Proair Hfa] 1 - 2 puff INHALATION Q6H PRN PRN 02/20/18 Duloxetine HCl 60 mg PO DAILY 02/20/18 aspirin 81 mg tablet,delayed 81 mg PO DAILY 03/16/18 release isosorbide mononitrate ER 60 mg 60 mg PO QDAY #30 tab 04/05/18 tablet,extended release 24 hr Buspirone HCl 10 mg PO BID 04/09/18 Nitroglycerin [Nitrostat] 0.4 mg SUBLINGUAL Q5M PRN 04/09/18 Omeprazole 40 mg PO DAILY 04/09/18 clopidogrel 75 mg tablet 75 mg PO DAILY #90 tab 04/30/18 carvedilol 25 mg tablet 25 mg PO BID tab 08/30/18 furosemide 40 mg tablet 40 mg PO DAILY #30 tab 08/30/18 rosuvastatin 20 mg tablet 20 mg PO DAILY #30 tab 08/30/18 Surgical History: Surgical History (Last Reviewed 08/30/18 @ 10:35 by Nasima Orr) History of coronary artery stent placement (Chronic) Onset Date: 03/06/18 Z95.5 PTCA/SHELBY of the of mid LCX with a 3.0 x 16 Promus Synergy and PTCA/SHELBY of the Proximal RCA recent occlusion with a 3.5 x 38 Promus Synergy 03/06/18; Promus Synergy 2.25 X 20 to mid PDA and Promus Synergy 3.5 X12 to proximal RPL branch; POA of ostial PBA with no stent 03/18/2018 H/O carpal tunnel repair Z98.890 History of arthroscopic knee surgery Z98.890 History of left heart catheterization Onset Date: 04/10/18 Z98.890 Hx of cholecystectomy Z90.49 Surgical History: angioplasty Psychiatric History: No pertinent psych hx Smoking Status: Current every day smoker - *Family History Maternal History Items: No pertinent history Paternal History Items: No pertinent history Review of Systems Constitutional: Denies: Chills, Fever, Weight Change HEENT: Denies: Head Aches, Sinus Congestion, Sinus Drainage Cardiovascular: Reports: Chest Pain. Denies: Palpitations Respiratory: Denies: Cough, Shortness of breath at rest, Sputum production Gastrointestinal: Denies: Abdominal Pain, Nausea, Vomiting Genitourinary: Denies: Dysuria Musculoskeletal: Denies: Joint Pain, Joint Tenderness Skin: Denies: Rash, Wounds Neurological: Denies: Numbness, Tingling, Focal weakness Psychiatric: Denies: Anxiety, Depression, Homicidal Ideations, Suicidal Ideations Hematologic/ Lymphatic: Denies: Easy Bruising, Easy Bleeding VTE Information - Inpt Only VTE Present on Admission: No VTE Mechan Device Prophylaxis: None VTE Pharm Prophylaxis ordered?: Yes - Physical Exam General: Alert, Oriented x3, Cooperative HEENT: Atraumatic, Normocephalic Neck: Supple Lungs: Clear to auscultation, Normal air movement Cardiovascular: Regular rate, Regular Rhythm, Normal S1, Normal S2, No murmurs Abdomen: Bowel Sounds Present, Soft, Non Tender, Obese Extremities: No edema Skin: No rashes Musculoskeletal: No Tenderness to Palpation of Joints or Extremities Neurological: Neuro grossly intact Psych/Mental Status: Normal Affect, Appropriate Vital Signs Temp Pulse Resp BP Pulse Ox 97.4 F L 78 18 118/70 95 11/05/18 02:24 11/05/18 03:34 11/05/18 03:34 11/05/18 03:34 11/05/18 03:34 Oxygen Flow Rate (L/min) 2 Oxygen Delivery Method Nasal Cannula Weight: 252 lb 10.396 oz Body Mass Index (BMI) 39.5 Laboratory Tests Past 24 Hrs 11/05/18 11/05/18 02:25 02:25 WBC 8.8 RBC 4.17 L Hgb 13.4 Hct 41.2 MCV 98.8 H MCH 32.1 H MCHC 32.5 RDW 14.9 H RDW Differential 53.0 H Plt Count 286 MPV 8.5 Immature Gran % (Auto) 0.100 Neut % (Auto) 48.0 Lymph % (Auto) 41.8 H [place] % (Auto) 7.8 Eos % (Auto) 1.8 Baso % (Auto) 0.5 Absolute Neuts (auto) 4.2 Absolute Lymphs (auto) 3.69 Total Counted Not Reportable Sodium 139 Potassium 3.2 L Chloride 99 Carbon Dioxide 33.0 H Anion Gap 7 BUN 25 H Creatinine 1.31 H Estim Creat Clear Calc 60.97 Est GFR (MDRD) Af Amer 73 Est GFR (MDRD) Non-Af 61 BUN/Creatinine Ratio 19.1 Glucose 111 H Calcium 9.4 Troponin I < 0.015 Assessment/Plan All Active Problems (Last Reviewed 08/30/18 @ 10:35 by Nasima Orr) Unstable angina pectoris (Acute) Chest pain (Acute) Abnormal stress test (Acute) Chronic Problems (Last Reviewed 08/30/18 @ 10:35 by Nasima Orr) CAD (coronary artery disease) (Chronic) History of coronary artery stent placement (Chronic 03/06/18) PTCA/SHELBY of the of mid LCX with a 3.0 x 16 Promus Synergy and PTCA/SHELBY of the Proximal RCA recent occlusion with a 3.5 x 38 Promus Synergy 03/06/18; Promus Synergy 2.25 X 20 to mid PDA and Promus Synergy 3.5 X12 to proximal RPL branch; POA of ostial PBA with no stent 03/18/2018 Atherosclerosis of coronary artery of [place] without angina pectoris (Chronic) PTCA/SHELBY of the of mid LCX with a 3.0 x 16 Promus Synergy and PTCA/SHELBY of the Proximal RCA recent occlusion with a 3.5 x 38 Promus Synergy 03/06/18 Nicotine dependence (Chronic) Hyperlipidemia (Chronic) Hypertension (Chronic) Plan 1. Chest Pain-- cycle cardiac markers, obtain consult with Dr Juarez in AM. Maintain NPO for now as he will likely need a cardiac cath. Morphine, oxygen, nitro and aspirin per routine. 2. Smoking-- cessation strongly encouraged ([id number])- 3. continue routine medications for stable medical conditions 4. DVT prophylaxis Code Visit Inpatient E&M: 82471 Init Hosp L3
[2018-11-05] MEDS: 0.9% Normal Saline 1,000 ML 75 ML IV (05:05)
[2018-11-05 05:49] LABS: Prothrombin Time (Protime)PT. 12.8 SECONDS (11.7-14.9)
[2018-11-05 05:50] LABS: Partial Thromboplast Time 26.8 Seconds (24.1-36.2)
[2018-11-05 05:51] LABS: Hematocrit 41.2 % (40-54); Hemoglobin 13.4 g/dl (13.0-16.5); Mean Corp Hgb Conc 32.5 g/gl (32-36); Mean Corpuscular Hgb 32.1 pg (27.0-32.0); Mean Corpuscular Volume 98.8 fL (80-94); Mean Platelet Vol. 8.4 fl (6.2-12.0); Platelet Count 312 K/mm3 (150-450); RBC Distribution Width CV 14.7 % (11.6-14.6); RBC Distribution Width SD 51.9 fl (35.1-43.9); Red Blood Count 4.17 M/mm3 (4.6-6.2); White Blood Count 8.8 K/mm3 (4.4-11.0)
[2018-11-05 05:58] LABS: Scan Indicated on CBC? Y/N NO
[2018-11-05 06:20] LABS: ALB/GLOB Ratio 0.7 RATIO (0.9-2.4); AST(SGOT) 12 U/L (15-37); Alanine Aminotransfer ALT/SGPT 19 U/L (16-61); Alkaline Phosphatase 66 U/L (45-117); Anion Gap 12 (5-15); BUN 23 mg/dL (7-18); BUN/Creat Ratio 19.8 RATIO (10-20); Calcium,Total 9.4 mg/dL (8.5-10.1); Chloride 98 mmol/L (98-107); Cholesterol 226 mg/dL (200); Creatinine, Serum 1.16 mg/dL (0.70-1.30); EST Glomerular Filtration Rate 70 mL/min (>60); Est Glom Filt Rate - Afr Amer 85 mL/min (>60); Estimated Creatinine Clearance 68.85 ml/min; Globulin 4.2 g/dL (2.2-4.2); Glucose 106 mg/dL (74-106); High Density Lipoprotein 33 mg/dL; Potassium 3.4 mmol/L (3.5-5.1); Protein, Total 7.2 g/dL (6.4-8.2); Sodium Level 140 mmol/L (136-145); Thyroid Stim Hormone (TSH) 1.54 uIU/mL (0.358-3.74); Triglycerides 353 mg/dL; Very Low Density Lipoprotein 71 mg/dL (5-40)
--- NOTE | 2018-11-05 07:48 | STEWCON_ITS ---
Reason For Study: CHEST PAIN Stress Results Protocol: [facility] Protocol Maximum Predicted HR: 167 bpm Target HR: 142 bpm % Maximum Predicted HR: 78 % Heart Stage Duration Rate BP Comment (mm:ss) (bpm) BASELINE 82 128/882CC DEFINITY, WHEN STOOD, AUDIBLE EXP. WHEEZE NOTED STAGE 1 3:00 115 182/70INCREASED SOB TOWARDS END OF STAGE 2CC DEFINITY, BECAME PALE, DIAPHORETIC AND INCREASED SOB AND AUDIBLE STAGE 2 1:18 131 / EXP WHEEZE NOTED. RECOVERY 100 160/86 Stress Duration: 4:18 mm:ss Maximum Stress HR: 131 bpm Baseline Echocardiogram Findings The estimated ejection fraction is 65 %. Stress Echo Wall motion Data Resting WM Intermediate WM Stress WM Resting Wall Motion Wall Motion Stress No regional wall motion No regional wall motion abnormalities noted. abnormalities noted. EKG Data Normal intervals are noted. The patient exercised according to the regular [facility] protocol for a total duration of 4:18. The maximum heart rate attained was 129 beats per minute. This was 77% of maximum predicted heart rate. The patient exercised into stage 2 of the [facility] protocol. During stress, there were no ST or T wave changes noted to suggest ischemia. No clinical angina was noted. Interpretation Summary The estimated ejection fraction is 65 %. Normal, submaximal treadmill echocardiogram. Negative for ischemia by EKG and echocardiographic criteria. No anginal symptoms noted. Below average exercise capacity for age. Hypertensive blood pressure response to exercise. Decreased sensitivity due to failure to reach target heart rate, and poor echo windows requiring Definity agent. Patient test terminated due to severe dyspnea and leg discomfort. Final LVEF of 75%. Recommend clinical correlation or alternative mode of testing to better assess previous angioplasty and stenting. The study was technically difficult. Contrast injection was performed. Ordering Physician: Misha Juarez Referring Physician: Alex Garcia Performed By: Savannah Amaral, ANAY, RVT
[2018-11-05] MEDS: Aspirin E.C. 81 MG Tablet PO (08:07)
[2018-11-05 08:57] LABS: BNP,B-Type NATRIURETIC PEPTIDE 13.6 pg/mL (0-100)
[2018-11-05] MEDS: Carvedilol 25 MG Tablet PO (09:53)
[2018-11-05] MEDS: Pantoprazole Sodium 40 MG Tablet PO (09:53)
[2018-11-05] MEDS: Isosorbide Mononitrate 60 MG Tablet PO (09:53)
[2018-11-05] MEDS: busPIRone 5 MG Tablet 10 MG PO (09:54)
[2018-11-05] MEDS: DULoxetine Hcl 60 MG Capsule PO (09:54)
[2018-11-05] MEDS: Losartan Potassium 100 MG Tablet PO (09:54)
[2018-11-05] MEDS: Acetaminophen 325 MG Tablet 650 MG PO (10:49)
--- NOTE | 2018-11-05 11:56 | DCINST_ITS ---
You will use the following diet at home:: Cardiac Your food should be the consistency of: Regular Discharge Activity: Return to Normal Activity Weight Bearing Status: Full weight bearing Call your doctor if you observe: Fever of 101 or Higher, Shortness of breath, Dizziness, Fainting spells, Chest pain, Increased palpitations (irregular heartbeat), Uncontrolled pain Allergies/Adverse Reactions: Allergies cyclobenzaprine [From Flexeril] Adverse Reaction (Verified 11/05/18 02:29) Upset Stomach hydrocodone bitartrate [From Vicodin] Adverse Reaction (Verified 11/05/18 02:29) Upset Stomach tramadol Adverse Reaction (Verified 11/05/18 02:29) Upset Stomach Medications to take at Discharge Zolpidem Tartrate [Ambien] 10 mg PO QHS 01/08/15 Losartan/Hydrochlorothiazide [Losartan-Hctz 100-25 mg Tab] 1 ea PO DAILY 03/09/17 Albuterol IH (ProAir) [Proair Hfa] 1 - 2 puff INHALATION Q6H PRN PRN 02/20/18 Duloxetine HCl 60 mg PO DAILY 02/20/18 aspirin 81 mg tablet,delayed release 81 mg PO DAILY 03/16/18 isosorbide mononitrate ER 60 mg tablet,extended release 24 hr 60 mg PO QDAY #30 tab 04/05/18 Buspirone HCl 5 mg PO BID 04/09/18 Nitroglycerin [Nitrostat] 0.4 mg SUBLINGUAL Q5M PRN 04/09/18 Omeprazole 40 mg PO DAILY 04/09/18 clopidogrel 75 mg tablet 75 mg PO DAILY #90 tab 04/30/18 carvedilol 25 mg tablet 25 mg PO DAILY tab 08/30/18 furosemide 40 mg tablet 40 mg PO DAILY #30 tab 08/30/18 rosuvastatin 20 mg tablet 20 mg PO DAILY #30 tab 08/30/18 Albuterol Sulfate [Ventolin Hfa] 90 mcg INHALATION PRN PRN 11/05/18 Aspirin [Aspir 81] 81 mg PO DAILY 11/05/18 Clopidogrel Bisulfate [Clopidogrel] 75 mg PO DAILY 11/05/18 Fluticasone 44 Mcg [Flovent 44 Mcg] 44 mcg INHALATION PRN PRN 11/05/18 Losartan Potassium [Cozaar] 50 mg PO DAILY 11/05/18 Nystatin 15 gm TP DAILY PRN PRN 11/05/18 Potassium Chloride 10 meq PO DAILY 11/05/18 Pravastatin [Pravachol] 40 mg PO QHS 11/05/18 Tizanidine HCl 4 mg PO DAILY PRN PRN 11/05/18 Primary Care Physician: Lucia Pandya PA [Primary Care Provider] - Please follow up with your Primary Care Physician in: 1-2 weeks. Test Results: Test results from this visit will be discussed in further detail at your follow- up appointment, if applicable.
--- NOTE | 2018-11-05 13:42 | PCM.CONS.C ---
Problem List (1) Unstable angina pectoris Status: Acute (2) CAD (coronary artery disease) Status: Chronic Qualifiers: (3) Chest pain Status: Acute (4) Abnormal stress test Status: Acute (5) History of coronary artery stent placement Status: Chronic Comment: PTCA/SHELBY of the of mid LCX with a 3.0 x 16 Promus Synergy and PTCA/SHELBY of the Proximal RCA recent occlusion with a 3.5 x 38 Promus Synergy 03/06/18; Promus Synergy 2.25 X 20 to mid PDA and Promus Synergy 3.5 X12 to proximal RPL branch; POA of ostial PBA with no stent 03/18/2018 (6) Nicotine dependence Status: Chronic Qualifiers: (7) Hyperlipidemia Status: Chronic Qualifiers: (8) Hypertension Status: Chronic Qualifiers: Reason for Consult Date of Consultation: 11/05/18 Reason for Consultation: Chest pain, coronary disease status post stenting, hypertension, nicotine abuse, hypercholesterolemia History of Present Illness: The patient is a 53 year old M, patient of mine, with a history of hypertension, hypercholesterolemia, coronary disease status post angioplasty and stenting most recently in March 2018. At that time he underwent angioplasty and stenting of his distal right coronary artery and PDA. He had had previous angioplasty and stenting of his RCA but had deterioration of same requiring additional stenting. Despite all of his coronary disease he continues to smoke, and apparently developed substernal chest pain last evening which woke him up from a sound sleep. He describes it as midsternal, nonradiating with associated shortness of breath. He was admitted to the ER and his EKG showed normal sinus rhythm, no acute changes. His troponins were negative x2, and he underwent a treadmill echocardiogram in which he went about 4 minutes, had no chest pain but had profound dyspnea on exertion and a hypertensive blood pressure response to exercise. He did not reach target heart rate, and required Definity agent for enhancement. Despite these limitations he had no wall motion abnormalities but did not reach target heart rate. Apparently the patient is quite upset that his stress test was not read any sooner, and is threatening to leave AGAINST MEDICAL ADVICE. It is possible that the patient is undergoing nicotine withdrawal and there is also some question whether the patient was adherent to his medications particularly his Plavix. [] Past Medical History Allergies/Adverse Reactions: Allergies cyclobenzaprine [From Flexeril] Adverse Reaction (Verified 11/05/18 02:29) Upset Stomach hydrocodone bitartrate [From Vicodin] Adverse Reaction (Verified 11/05/18 02:29) Upset Stomach tramadol Adverse Reaction (Verified 11/05/18 02:29) Upset Stomach Home Medications: Ambulatory Orders Medication Instructions Recorded Zolpidem Tartrate [Ambien] 10 mg PO QHS 01/08/15 Losartan/Hydrochlorothiazide 1 ea PO DAILY 03/09/17 [Losartan-Hctz 100-25 mg Tab] Albuterol IH (ProAir) [Proair Hfa] 1 - 2 puff INHALATION Q6H PRN PRN 02/20/18 Duloxetine HCl 60 mg PO DAILY 02/20/18 aspirin 81 mg tablet,delayed 81 mg PO DAILY 03/16/18 release isosorbide mononitrate ER 60 mg 60 mg PO QDAY #30 tab 04/05/18 tablet,extended release 24 hr Buspirone HCl 5 mg PO BID 04/09/18 Nitroglycerin [Nitrostat] 0.4 mg SUBLINGUAL Q5M PRN 04/09/18 Omeprazole 40 mg PO DAILY 04/09/18 clopidogrel 75 mg tablet 75 mg PO DAILY #90 tab 04/30/18 carvedilol 25 mg tablet 25 mg PO DAILY tab 08/30/18 furosemide 40 mg tablet 40 mg PO DAILY #30 tab 08/30/18 rosuvastatin 20 mg tablet 20 mg PO DAILY #30 tab 08/30/18 Albuterol Sulfate [Ventolin Hfa] 90 mcg INHALATION PRN PRN 11/05/18 Aspirin [Aspir 81] 81 mg PO DAILY 11/05/18 Clopidogrel Bisulfate [Clopidogrel] 75 mg PO DAILY 11/05/18 Fluticasone 44 Mcg [Flovent 44 Mcg] 44 mcg INHALATION PRN PRN 11/05/18 Losartan Potassium [Cozaar] 50 mg PO DAILY 11/05/18 Nystatin 15 gm TP DAILY PRN PRN 11/05/18 Potassium Chloride 10 meq PO DAILY 11/05/18 Pravastatin [Pravachol] 40 mg PO QHS 11/05/18 Tizanidine HCl 4 mg PO DAILY PRN PRN 11/05/18 Past Medical History (Chronic Problems): Chronic Problems (Last Reviewed 08/30/18 @ 10:35 by Nasima Orr) CAD (coronary artery disease) (Chronic) History of coronary artery stent placement (Chronic 03/06/18) PTCA/SHELBY of the of mid LCX with a 3.0 x 16 Promus Synergy and PTCA/SHELBY of the Proximal RCA recent occlusion with a 3.5 x 38 Promus Synergy 03/06/18; Promus Synergy 2.25 X 20 to mid PDA and Promus Synergy 3.5 X12 to proximal RPL branch; POA of ostial PBA with no stent 03/18/2018 Atherosclerosis of coronary artery of [place] heart without angina pectoris (Chronic) PTCA/SHELBY of the of mid LCX with a 3.0 x 16 Promus Synergy and PTCA/SHELBY of the Proximal RCA recent occlusion with a 3.5 x 38 Promus Synergy 03/06/18 Nicotine dependence (Chronic) Hyperlipidemia (Chronic) Hypertension (Chronic) Surgical History: angioplasty Psychiatric History: No pertinent psych hx - *Family History Maternal History Items: No pertinent history Paternal History Items: No pertinent history Smoking Status: Current every day smoker Review of Systems - Review of Systems General: Denies: Fever, Night Sweats, Fatigue Cardiovascular: Reports: Chest Discomfort, Chest Discomfort at Rest, Shortness of Breath, Shortness of Breath at Rest, Shortness of Breath with Exertion. Denies: Orthopnea, PND, Peripheral Edema, Palpitations, Lightheadedness, Dizziness, Near Syncope, Syncope Respiratory: Denies: Cough, Sputum Production, Hemoptysis Gastrointestinal: Denies: Hematemesis, Hematochezia, Melena Genitourinary: Denies: Dysuria, Hematuria Skin: Denies: Rash Subjectve: Patient laying in bed, no acute distress. Objective: Vital Signs Temp Pulse Resp BP Pulse Ox 98.4 F 80 16 144/65 H 94 11/05/18 09:37 11/05/18 10:54 11/05/18 09:37 11/05/18 09:37 11/05/18 09:37 Oxygen Flow Rate (L/min) 2 Oxygen Delivery Method Room Air Weight: 251 lb 1.704 oz Body Mass Index (BMI) 39.3 Intake and Output for Last 24 Hours 11/03/18 11/04/18 11/05/18 23:59 23:59 23:59 Intake Total 527.2 / 527.2 Balance 527.2 / 527.2 General: Awake, Alert, Oriented x 3 HEENT: PERRL, EOMI, Sclera Non Icteric Neck: Supple, Good ROM, No Lymph Node Enlargement Lungs: Clear to auscultation Cardiovascular: Regular Rhythm, Normal S1, Normal S2, No Murmurs, No Rubs, No Gallops Vascular: No Carotid Bruits, Normal Femoral Pulses, Normal Radial Pulses, Normal Dorsalis Pedal Pulse, Normal Posterior Tibial Pulses Abdomen: Bowel Sounds Present, Soft, Non Tender, No HSM, No Organomegaly Extremities: No Cyanosis, No Clubbing, No edema Neurological: No Focal Motor or Sensory Deficit 11/05/18 02:25: WBC 8.8, RBC 4.17 L, Hgb 13.4, Hct 41.2, MCV 98.8 H, MCH 32.1 H, MCHC 32.5, RDW 14.9 H, RDW Differential 53.0 H, Plt Count 286, MPV 8.5, Immature Gran % (Auto) 0.100, Neut % (Auto) 48.0, Lymph % (Auto) 41.8 H, [place] % (Auto) 7.8, Eos % (Auto) 1.8, Baso % (Auto) 0.5, Absolute Neuts (auto) 4.2, Total Counted Not Reportable 11/05/18 02:25: Sodium 139, Potassium 3.2 L, Chloride 99, Carbon Dioxide 33.0 H, Anion Gap 7, BUN 25 H, Creatinine 1.31 H, Est GFR (MDRD) Af Amer 73, Est GFR (MDRD) Non-Af 61, BUN/Creatinine Ratio 19.1, Glucose 111 H, Calcium 9.4, Troponin I < 0.015 11/05/18 02:25: PT 12.8, INR 1.0, APTT 26.8 11/05/18 05:36: WBC 8.8, RBC 4.17 L, Hgb 13.4, Hct 41.2, MCV 98.8 H, MCH 32.1 H, MCHC 32.5, RDW 14.7 H, RDW Differential 51.9 H, Plt Count 312, MPV 8.4 11/05/18 05:36: B-Natriuretic Peptide 13.6 11/05/18 05:36: Sodium 140, Potassium 3.4 L, Chloride 98, Carbon Dioxide 30.0, Anion Gap 12, BUN 23 H, Creatinine 1.16, Est GFR (MDRD) Af Amer 85, Est GFR (MDRD) Non-Af 70, BUN/Creatinine Ratio 19.8, Glucose 106, Calcium 9.4, Total Bilirubin 0.20, Direct Bilirubin 0.10, Troponin I < 0.015, Triglycerides 353 H, Cholesterol 226 H, LDL Cholesterol 122, VLDL Cholesterol 71 H, HDL Cholesterol 33 L 11/05/18 09:20: Troponin I < 0.015 Rhythm: EKG: ECHO: Stress Test: Cardiac Cath: PCI: CT Surgery: Holter monitor: EPS: PPM: CXR: Chest CT Scan: Assessment/Plan 1. Coronary artery disease: The patient read presents with atypical nonexertional substernal chest pain, and has a nondiagnostic submaximal stress echocardiogram with no overt areas of ischemia, however he did not reach target heart rate and had difficult echo windows to visualize his LV function at peak exercise. In addition he had very poor exercise capacity which may be a result of his hip pain, or coronary ischemia. To better understand how his stents have been healing over the last 7 months, I have recommended that he undergo a repeat left heart catheterization tomorrow morning. We need to determine if the patient has been taking Plavix or not. If he has not been taking Plavix I would recommend loading him with 300 mg x1 tonight followed by 75 mg p.o. daily. If the patient chooses to leave AGAINST MEDICAL ADVICE, would recommend that he do so with baby aspirin and Plavix going forward. 2. Tobacco cessation: I have strongly recommended the patient discontinue all tobacco products. The patient may benefit from nicotine replacement therapy. 3. Hyperlipidemia: His LDL and HDL cholesterol are not at goal. Recommend switching him from Lipitor to Crestor 10 mg p.o. nightly, and repeating lipid profile in 6 weeks time. 4. Thank you very much for the opportunity to participate in the cardiac care of your patient. Consultation time took place between 815 and 8:45 AM. Code Visit Inpatient E&M: 16773 Init Hosp L2
[2018-11-05] MEDS: Furosemide 40 MG Tablet PO ×2 (14:02→14:03)
[2018-11-05] MEDS: hydroCHLOROthiazide 25 MG Tablet PO (14:02)
--- NOTE | 2018-11-05 14:30 | NURSING ---
This RN educated pt that he would be leaving AMA. Pt refused to sign AMA papers. medical stenographer and hospitalist and Dr. Juarez made aware of pt leaving AMA. Hospitalist into explain to pt the need for heart cath and for pt to stay at hospital. Pt still refused to stay.
--- NOTE | 2018-11-05 14:46 | PCM.DC.SUM ---
Discharge Date and Diagnosis Date of Admission: 11/05/18 Date of Discharge: 11/05/18 - Primary Discharge Diagnosis Chest pain with abnormal stress echocardiogram. - Secondary Discharge Diagnosis Chronic Problems (Last Reviewed 08/30/18 @ 10:35 by Nasima Orr) CAD (coronary artery disease) (Chronic) History of coronary artery stent placement (Chronic 03/06/18) PTCA/SHELBY of the of mid LCX with a 3.0 x 16 Promus Synergy and PTCA/SHELBY of the Proximal RCA recent occlusion with a 3.5 x 38 Promus Synergy 03/06/18; Promus Synergy 2.25 X 20 to mid PDA and Promus Synergy 3.5 X12 to proximal RPL branch; POA of ostial PBA with no stent 03/18/2018 Atherosclerosis of coronary artery of [place] heart without angina pectoris (Chronic) PTCA/SHELBY of the of mid LCX with a 3.0 x 16 Promus Synergy and PTCA/SHELBY of the Proximal RCA recent occlusion with a 3.5 x 38 Promus Synergy 03/06/18 Nicotine dependence (Chronic) Hyperlipidemia (Chronic) Hypertension (Chronic) Hospital Course and Treatment Imaging Results: 11/05/18 07:48 Stress Test Echo W/Contrast [ECHO] Routine Clinical Impression(s) from Imaging Studies Chest X-Ray 11/05/18 02:40 IMPRESSION: Peribronchial thickening with asthma/bronchitis pattern. No pneumonia seen. at 0304 Reported and signed by: Dre Butler MD Electronically Signed: Dre Butler, at 3:03 EST Tel , Service support , Dr. Juarez, cardiology. Operations: None Procedures: EKG, Stress test Summary of Care Provided: This is a 52 years old male patient admitted for chest pain for evaluation. He had a history of CAD status post stents in addition to other risk factors for CAD including smoking, hypertension and hyperlipidemia. His EKG revealed no evidence of acute ischemic changes. Troponin was negative x3. Chest x-ray showed no evidence of acute infiltrate, consolidation or pneumonia. He underwent stress echocardiogram that was reported as abnormal by Dr. Juarez. Stress echocardiogram report reviewed and revealed submaximal treadmill echocardiogram which was negative for ischemia by EKG and echocardiographic criteria, below average exercise capacity and test terminated due to severe dyspnea and leg discomfort and cardiology recommended cardiac catheterization. Patient was upset because of the late reading of the stress echocardiogram. I went to the patient's room and I explained to him that stress test was abnormal according to cardiology and they recommended to go for cardiac catheterization. He was upset and he wanted to smoke. Shortly after, I was informed by nursing staff that patient left the hospital AGAINST MEDICAL ADVICE. - Physical Exam General: Alert, Oriented x3, Cooperative HEENT: Atraumatic, PERRLA, EOMI, Normocephalic Oral: Moist Mucosa, No Gingival or Mucosal Lesions/ Ulcerations Neck: Supple, No JVD, Negative Carotid Bruits, Trachea Midline, Thyroid Normal Size and Texture Lungs: Clear to auscultation, No rhonchi, No wheeze, No rales Cardiovascular: Regular rate, Regular Rhythm, Normal S1, Normal S2, PMI Normal Abdomen: Bowel Sounds Present, Soft, Non Tender, Non-Distended, No Hepato-splenomegaly Extremities: No clubbing, No cyanosis, No edema Skin: No rashes, No breakdown Lymphatic: No Cervical, Supraclavicular, or Inguinal Adenopathy Neurological: Cranial nerves II-XII grossly intact, Motor Exam 5/5 strength throughout Psych/Mental Status: Normal Affect, Appropriate Vital Signs Temp Pulse Resp BP Pulse Ox 98.4 F 80 16 144/65 H 94 11/05/18 09:37 11/05/18 10:54 11/05/18 09:37 11/05/18 09:37 11/05/18 09:37 Oxygen Flow Rate (L/min) 2 Oxygen Delivery Method Room Air Weight: 251 lb 1.704 oz Body Mass Index (BMI) 39.3 Intake and Output for Last 24 Hours 11/03/18 11/04/18 11/05/18 23:59 23:59 23:59 Intake Total 527.2 / 527.2 Balance 527.2 / 527.2 Laboratory Tests Past 24 Hrs 11/05/18 11/05/18 11/05/18 02:25 02:25 02:25 WBC 8.8 RBC 4.17 L Hgb 13.4 Hct 41.2 MCV 98.8 H MCH 32.1 H MCHC 32.5 RDW 14.9 H RDW Differential 53.0 H Plt Count 286 MPV 8.5 Immature Gran % (Auto) 0.100 Neut % (Auto) 48.0 Lymph % (Auto) 41.8 H [place] % (Auto) 7.8 Eos % (Auto) 1.8 Baso % (Auto) 0.5 Absolute Neuts (auto) 4.2 Absolute Lymphs (auto) 3.69 Total Counted Not Reportable PT 12.8 INR 1.0 APTT 26.8 Sodium 139 Potassium 3.2 L Chloride 99 Carbon Dioxide 33.0 H Anion Gap 7 BUN 25 H Creatinine 1.31 H Estim Creat Clear Calc 60.97 Est GFR (MDRD) Af Amer 73 Est GFR (MDRD) Non-Af 61 BUN/Creatinine Ratio 19.1 Glucose 111 H Calcium 9.4 Total Bilirubin Direct Bilirubin AST ALT Alkaline Phosphatase Troponin I < 0.015 B-Natriuretic Peptide Total Protein Albumin Globulin Albumin/Globulin Ratio Triglycerides Cholesterol LDL Cholesterol VLDL Cholesterol HDL Cholesterol TSH 11/05/18 11/05/18 11/05/18 05:36 05:36 05:36 WBC 8.8 RBC 4.17 L Hgb 13.4 Hct 41.2 MCV 98.8 H MCH 32.1 H MCHC 32.5 RDW 14.7 H RDW Differential 51.9 H Plt Count 312 MPV 8.4 Immature Gran % (Auto) Neut % (Auto) Lymph % (Auto) [place] % (Auto) Eos % (Auto) Baso % (Auto) Absolute Neuts (auto) Absolute Lymphs (auto) Total Counted PT INR APTT Sodium 140 Potassium 3.4 L Chloride 98 Carbon Dioxide 30.0 Anion Gap 12 BUN 23 H Creatinine 1.16 Estim Creat Clear Calc 68.85 Est GFR (MDRD) Af Amer 85 Est GFR (MDRD) Non-Af 70 BUN/Creatinine Ratio 19.8 Glucose 106 Calcium 9.4 Total Bilirubin 0.20 Direct Bilirubin 0.10 AST 12 L ALT 19 Alkaline Phosphatase 66 Troponin I < 0.015 B-Natriuretic Peptide 13.6 Total Protein 7.2 Albumin 3.0 L Globulin 4.2 Albumin/Globulin Ratio 0.7 L Triglycerides 353 H Cholesterol 226 H LDL Cholesterol 122 VLDL Cholesterol 71 H HDL Cholesterol 33 L TSH 1.54 11/05/18 09:20 WBC RBC Hgb Hct MCV MCH MCHC RDW RDW Differential Plt Count MPV Immature Gran % (Auto) Neut % (Auto) Lymph % (Auto) [place] % (Auto) Eos % (Auto) Baso % (Auto) Absolute Neuts (auto) Absolute Lymphs (auto) Total Counted PT INR APTT Sodium Potassium Chloride Carbon Dioxide Anion Gap BUN Creatinine Estim Creat Clear Calc Est GFR (MDRD) Af Amer Est GFR (MDRD) Non-Af BUN/Creatinine Ratio Glucose Calcium Total Bilirubin Direct Bilirubin AST ALT Alkaline Phosphatase Troponin I < 0.015 B-Natriuretic Peptide Total Protein Albumin Globulin Albumin/Globulin Ratio Triglycerides Cholesterol LDL Cholesterol VLDL Cholesterol HDL Cholesterol TSH Discharge Activity: Return to Normal Activity Weight Bearing Status: Full weight bearing Call your doctor if you observe: Fever of 101 or Higher, Shortness of breath, Dizziness, Fainting spells, Chest pain, Increased palpitations (irregular heartbeat), Uncontrolled pain Home Medications: Medications to take at Discharge Zolpidem Tartrate [Ambien] 10 mg PO QHS 01/08/15 Losartan/Hydrochlorothiazide [Losartan-Hctz 100-25 mg Tab] 1 ea PO DAILY 03/09/17 Albuterol IH (ProAir) [Proair Hfa] 1 - 2 puff INHALATION Q6H PRN PRN 02/20/18 Duloxetine HCl 60 mg PO DAILY 02/20/18 aspirin 81 mg tablet,delayed release 81 mg PO DAILY 03/16/18 isosorbide mononitrate ER 60 mg tablet,extended release 24 hr 60 mg PO QDAY #30 tab 04/05/18 Buspirone HCl 5 mg PO BID 04/09/18 Nitroglycerin [Nitrostat] 0.4 mg SUBLINGUAL Q5M PRN 04/09/18 Omeprazole 40 mg PO DAILY 04/09/18 clopidogrel 75 mg tablet 75 mg PO DAILY #90 tab 04/30/18 carvedilol 25 mg tablet 25 mg PO DAILY tab 08/30/18 furosemide 40 mg tablet 40 mg PO DAILY #30 tab 08/30/18 rosuvastatin 20 mg tablet 20 mg PO DAILY #30 tab 08/30/18 Albuterol Sulfate [Ventolin Hfa] 90 mcg INHALATION PRN PRN 11/05/18 Aspirin [Aspir 81] 81 mg PO DAILY 11/05/18 Clopidogrel Bisulfate [Clopidogrel] 75 mg PO DAILY 11/05/18 Fluticasone 44 Mcg [Flovent 44 Mcg] 44 mcg INHALATION PRN PRN 02/05/19 Losartan Potassium [Cozaar] 50 mg PO DAILY 11/05/18 Nystatin 15 gm TP DAILY PRN PRN 11/05/18 Potassium Chloride 10 meq PO DAILY 11/05/18 Pravastatin [Pravachol] 40 mg PO QHS 11/05/18 Tizanidine HCl 4 mg PO DAILY PRN PRN 11/05/18 Primary Care Physician: Lucia Pandya PA [Primary Care Provider] - Please follow up with your Primary Care Physician in: 1-2 weeks. Please Follow Up With: Lucia Pandya PA Disposition: Home Minutes spent on discharge:: 24 Patient Condition:: Stable Medical Necessity - Tobacco Use Smoking Status: Current every day smoker Meaningful Use Info Meaningful Use Diagnoses (Choose all that apply): None applicable Code Visit OBSV E&M: 32826 Observ/hosp same date L1
--- NOTE | 2018-11-05 14:52 | DS.PCM_ITS ---
Discharge Date and Diagnosis Date of Admission: 11/05/18 Date of Discharge: 11/05/18 - Primary Discharge Diagnosis Chest pain with abnormal stress echocardiogram. - Secondary Discharge Diagnosis Chronic Problems (Last Reviewed 08/30/18 @ 10:35 by Nasima Orr) CAD (coronary artery disease) (Chronic) History of coronary artery stent placement (Chronic 03/06/18) PTCA/SHELBY of the of mid LCX with a 3.0 x 16 Promus Synergy and PTCA/SHELBY of the Proximal RCA recent occlusion with a 3.5 x 38 Promus Synergy 03/06/18; Promus Synergy 2.25 X 20 to mid PDA and Promus Synergy 3.5 X12 to proximal RPL branch; POA of ostial PBA with no stent 03/18/2018 Atherosclerosis of coronary artery of [place] heart without angina pectoris (Chronic) PTCA/SHELBY of the of mid LCX with a 3.0 x 16 Promus Synergy and PTCA/SHELBY of the Proximal RCA recent occlusion with a 3.5 x 38 Promus Synergy 03/06/18 Nicotine dependence (Chronic) Hyperlipidemia (Chronic) Hypertension (Chronic) Hospital Course and Treatment Imaging Results: 11/05/18 07:48 Stress Test Echo W/Contrast [ECHO] Routine Clinical Impression(s) from Imaging Studies Chest X-Ray 11/05/18 02:40 IMPRESSION: Peribronchial thickening with asthma/bronchitis pattern. No pneumonia seen. at 0304 Reported and signed by: Dre Butler MD Electronically Signed: Dre Butler, at 3:03 EST Tel , Service support , Dr. Juarez, cardiology. Operations: None Procedures: EKG, Stress test Summary of Care Provided: This is a 52 years old male patient admitted for chest pain for evaluation. He had a history of CAD status post stents in addition to other risk factors for CAD including smoking, hypertension and hyperlipidemia. His EKG revealed no evidence of acute ischemic changes. Troponin was negative x3. Chest x-ray s howed no evidence of acute infiltrate, consolidation or pneumonia. He underwent stress echocardiogram that was reported as abnormal by Dr. Juarez. Stress echocardiogram report reviewed and revealed submaximal treadmill echocardiogram which was negative for ischemia by EKG and echocardiographic criteria, below average exercise capacity and test terminated due to severe dyspnea and leg discomfort and cardiology recommended cardiac catheterization. Patient was upset because of the late reading of the stress echocardiogram. I went to the patient's room and I explained to him that stress test was abnormal according to cardiology and they recommended to go for cardiac catheterization. He was upset and he wanted to smoke. Shortly after, I was informed by nursing staff that patient left the hospital AGAINST MEDICAL ADVICE. - Physical Exam General: Alert, Oriented x3, Cooperative HEENT: Atraumatic, PERRLA, EOMI, Normocephalic Oral: Moist Mucosa, No Gingival or Mucosal Lesions/ Ulcerations Neck: Supple, No JVD, Negative Carotid Bruits, Trachea Midline, Thyroid Normal Size and Texture Lungs: Clear to auscultation, No rhonchi, No wheeze, No rales Cardiovascular: Regular rate, Regular Rhythm, Normal S1, Normal S2, PMI Normal Abdomen: Bowel Sounds Present, Soft, Non Tender, Non-Distended, No Hepato- splenomegaly Extremities: No clubbing, No cyanosis, No edema Skin: No rashes, No breakdown Lymphatic: No Cervical, Supraclavicular, or Inguinal Adenopathy Neurological: Cranial nerves II-XII grossly intact, Motor Exam 5/5 strength throughout Psych/Mental Status: Normal Affect, Appropriate Vital Signs Temp Pulse Resp BP Pulse Ox 98.4 F 80 16 144/65 H 94 11/05/18 09:37 11/05/18 10:54 11/05/18 09:37 11/05/18 09:37 11/05/18 09:37 Oxygen Flow Rate (L/min) 2 Oxygen Delivery Method Room Air Weight: 251 lb 1.704 oz Body Mass Index (BMI) 39.3 Intake and Output for Last 24 Hours 11/03/18 11/04/18 11/05/18 23:59 23:59 23:59 Intake Total 527.2 / 527.2 Balance 527.2 / 527.2 Laboratory Tests Past 24 Hrs 11/05/18 11/05/18 11/05/18 02:25 02:25 02:25 WBC 8.8 RBC 4.17 L Hgb 13.4 Hct 41.2 MCV 98.8 H MCH 32.1 H MCHC 32.5 RDW 14.9 H RDW Differential 53.0 H Plt Count 286 MPV 8.5 Immature Gran % (Auto) 0.100 Neut % (Auto) 48.0 Lymph % (Auto) 41.8 H Holmes % (Auto) 7.8 Eos % (Auto) 1.8 Baso % (Auto) 0.5 Absolute Neuts (auto) 4.2 Absolute Lymphs (auto) 3.69 Total Counted Not Reportable PT 12.8 INR 1.0 APTT 26.8 Sodium 139 Potassium 3.2 L Chloride 99 Carbon Dioxide 33.0 H Anion Gap 7 BUN 25 H Creatinine 1.31 H Estim Creat Clear Calc 60.97 Est GFR (MDRD) Af Amer 73 Est GFR (MDRD) Non-Af 61 BUN/Creatinine Ratio 19.1 Glucose 111 H Calcium 9.4 Total Bilirubin Direct Bilirubin AST ALT Alkaline Phosphatase Troponin I < 0.015 B-Natriuretic Peptide Total Protein Albumin Globulin Albumin/Globulin Ratio Triglycerides Cholesterol LDL Cholesterol VLDL Cholesterol HDL Cholesterol TSH 11/05/18 11/05/18 11/05/18 05:36 05:36 05:36 WBC 8.8 RBC 4.17 L Hgb 13.4 Hct 41.2 MCV 98.8 H MCH 32.1 H MCHC 32.5 RDW 14.7 H RDW Differential 51.9 H Plt Count 312 MPV 8.4 Immature Gran % (Auto) Neut % (Auto) Lymph % (Auto) Holmes % (Auto) Eos % (Auto) Baso % (Auto) Absolute Neuts (auto) Absolute Lymphs (auto) Total Counted PT INR APTT Sodium 140 Potassium 3.4 L Chloride 98 Carbon Dioxide 30.0 Anion Gap 12 BUN 23 H Creatinine 1.16 Estim Creat Clear Calc 68.85 Est GFR (MDRD) Af Amer 85 Est GFR (MDRD) Non-Af 70 BUN/Creatinine Ratio 19.8 Glucose 106 Calcium 9.4 Total Bilirubin 0.20 Direct Bilirubin 0.10 AST 12 L ALT 19 Alkaline Phosphatase 66 Troponin I < 0.015 B-Natriuretic Peptide 13.6 Total Protein 7.2 Albumin 3.0 L Globulin 4.2 Albumin/Globulin Ratio 0.7 L Triglycerides 353 H Cholesterol 226 H LDL Cholesterol 122 VLDL Cholesterol 71 H HDL Cholesterol 33 L TSH 1.54 11/05/18 09:20 WBC RBC Hgb Hct MCV MCH MCHC RDW RDW Differential Plt Count MPV Immature Gran % (Auto) Neut % (Auto) Lymph % (Auto) Holmes % (Auto) Eos % (Auto) Baso % (Auto) Absolute Neuts (auto) Absolute Lymphs (auto) Total Counted PT INR APTT Sodium Potassium Chloride Carbon Dioxide Anion Gap BUN Creatinine Estim Creat Clear Calc Est GFR (MDRD) Af Amer Est GFR (MDRD) Non-Af BUN/Creatinine Ratio Glucose Calcium Total Bilirubin Direct Bilirubin AST ALT Alkaline Phosphatase Troponin I < 0.015 B-Natriuretic Peptide Total Protein Albumin Globulin Albumin/Globulin Ratio Triglycerides Cholesterol LDL Cholesterol VLDL Cholesterol HDL Cholesterol TSH Discharge Activity: Return to Normal Activity Weight Bearing Status: Full weight bearing Call your doctor if you observe: Fever of 101 or Higher, Shortness of breath, Dizziness, Fainting spells, Chest pain, Increased palpitations (irregular heartbeat), Uncontrolled pain Home Medications: Medications to take at Discharge Zolpidem Tartrate [Ambien] 10 mg PO QHS 01/08/15 Losartan/Hydrochlorothiazide [Losartan-Hctz 100-25 mg Tab] 1 ea PO DAILY 03/09/17 Albuterol IH (ProAir) [Proair Hfa] 1 - 2 puff INHALATION Q6H PRN PRN 02/20/18 Duloxetine HCl 60 mg PO DAILY 02/20/18 aspirin 81 mg tablet,delayed release 81 mg PO DAILY 03/16/18 isosorbide mononitrate ER 60 mg tablet,extended release 24 hr 60 mg PO QDAY #30 tab 04/05/18 Buspirone HCl 5 mg PO BID 04/09/18 Nitroglycerin [Nitrostat] 0.4 mg SUBLINGUAL Q5M PRN 04/09/18 Omeprazole 40 mg PO DAILY 04/09/18 clopidogrel 75 mg tablet 75 mg PO DAILY #90 tab 04/30/18 carvedilol 25 mg tablet 25 mg PO DAILY tab 08/30/18 furosemide 40 mg tablet 40 mg PO DAILY #30 tab 08/30/18 rosuvastatin 20 mg tablet 20 mg PO DAILY #30 tab 08/30/18 Albuterol Sulfate [Ventolin Hfa] 90 mcg INHALATION PRN PRN 11/05/18 Aspirin [Aspir 81] 81 mg PO DAILY 11/05/18 Clopidogrel Bisulfate [Clopidogrel] 75 mg PO DAILY 11/05/18 Fluticasone 44 Mcg [Flovent 44 Mcg] 44 mcg INHALATION PRN PRN 11/05/18 Losartan Potassium [Cozaar] 50 mg PO DAILY 11/05/18 Nystatin 15 gm TP DAILY PRN PRN 11/05/18 Potassium Chloride 10 meq PO DAILY 11/05/18 Pravastatin [Pravachol] 40 mg PO QHS 11/05/18 Tizanidine HCl 4 mg PO DAILY PRN PRN 11/05/18 Primary Care Physician: Lucia Pandya PA [Primary Care Provider] - Please follow up with your Primary Care Physician in: 1-2 weeks. Please Follow Up With: Lucia Pandya PA Disposition: Home Minutes spent on discharge:: 24 Patient Condition:: Stable Medical Necessity - Tobacco Use Smoking Status: Current every day smoker Meaningful Use Info Meaningful Use Diagnoses (Choose all that apply): None applicable Code Visit OBSV E&M: 21803 Observ/hosp same date L1
== END 2018-11-05 14:23 | disposition left against medical advice (07) ==
LOC: ED 03:13 → PCU 04:08
PROVIDERS: Admitting Provider Family Medicine; Emergency Provider Emergency Medicine; Family Provider Physician Assistant; PCP Physician Assistant; Referring Provider Family Medicine; Visit Provider Hospitalist
DX: I25.110 Atherosclerotic heart disease of native coronary artery with unstable angina pectoris (principal); E78.5 Hyperlipidemia, unspecified; I10 Essential (primary) hypertension; G47.33 Obstructive sleep apnea (adult) (pediatric); D47.2 Monoclonal gammopathy; R94.39 Abnormal result of other cardiovascular function study; Z95.5 Presence of coronary angioplasty implant and graft; Z86.718 Personal history of other venous thrombosis and embolism; Z79.899 Other long term (current) drug therapy; Z79.82 Long term (current) use of aspirin; Z79.02 Long term (current) use of antithrombotics/antiplatelets; F17.200 Nicotine dependence, unspecified, uncomplicated
CPT/HCPCS: 36415; 71046; 80048; 80053; 80061; 82248; 83880; 84443; 84484; 85025; 85027; 85610; 85730; 93005; 93017; 93350; 96360; 96361; 99218; 99285; 99406; J7030; Q9957; A4216; C8928; G0378

== ENCOUNTER 2018-11-15 07:48 | Day surgery (SDC) | payer BC, SELFPAY ==
[2018-11-05 04:43] VITALS: BMI 39.3
[2018-11-14 11:07] VITALS: BMI 41.8
[2018-11-14 12:23] VITALS: BMI 38.2
[2018-11-15 08:23] LABS: BUN 20 mg/dL (7-18); Creatinine, Serum 1.02 mg/dL (0.70-1.30); EST Glomerular Filtration Rate 81 mL/min (>60); Estimated Creatinine Clearance 83.75 ml/min; Glucose 104 mg/dL (74-106)
[2018-11-15 08:24] LABS: Anion Gap 4 (5-15); BUN/Creat Ratio 19.6 RATIO (10-20); Calcium,Total 8.9 mg/dL (8.5-10.1); Chloride 106 mmol/L (98-107); Est Glom Filt Rate - Afr Amer 98 mL/min (>60); Potassium 4.1 mmol/L (3.5-5.1); Sodium Level 140 mmol/L (136-145)
[2018-11-15 10:12] LABS: Blood Gas Specimen Type VEN; VBG BASE EXCESS 4 mmol/L (-1.0-3.5); VBG Bicarbonate 30 mmol/L (22-26); VBG Oxygen Content 31 mmol/L (23-33); VBG PO2 33 mmHg (25-40); VBG SO2 58 % (50-70); VBG pCO2 55.7 mmHg (41-51); VBG pH 7.34 (7.32-7.42)
[2018-11-15 10:12] LABS: Blood Gas Specimen Type VEN; VBG BASE EXCESS 5 mmol/L (-1.0-3.5); VBG Bicarbonate 30 mmol/L (22-26); VBG Oxygen Content 32 mmol/L (23-33); VBG PO2 33 mmHg (25-40); VBG SO2 59 % (50-70); VBG pH 7.35 (7.32-7.42)
[2018-11-15 10:12] LABS: Base Excess 4 mmol/L (-2 to +2); Bicarbonate 29.9 mmol/L (22-26); Blood Gas Specimen Type ART; PO2 58 mmHG (75-100); SO2 87 % (95-99); Total Carbon Dioxide 31 mmol/L; pCO2 54.4 mmHg (35-45); pH 7.35 (7.35-7.45)
--- NOTE | 2018-11-15 10:19 | CL.D_ITS ---
Patient Name: TWIN CHAMBERS Study Date: 11/15/2018 Performing: Misha Juarez MD Ht: 68.89 inches 175 cm : 1965 Wt: 257.94 lbs 117 kg Age: 53 Gender: male BSA: 2.3 PROCEDURE(S) PERFORMED NW88-SPL/LHC/COR/LV CLINICAL PROFILE AND INDICATIONS Indications: Stable Known CAD, Pre-Operative Evaluation Heart Failure: None Stress/Imaging Stress Echocardiogram: Yes Result: NegativeStress Echocardiogram: Negative Angina Classification Anginal Classification w/in 2 Weeks: CCS III CAD Presentations: Unstable angina. Other: Severe Dyspnea on exertion Comorbidities/Risk Factors: Current/Recent Smoker (< 1year) Hypertension Dyslipidemia Prior PCI Chronic Lung Disease CONCLUSIONS Normal Left Ventricular systolic function Elevated Left Ventricular End Diastolic Pressure Non obstructive coronary arteries Widely patent LCX, RCA and PDA stents. The patient has pulmonary hypertension which is mild. RECOMMENDATIONS PFTs, 6 min walk test, pulmonary consult if no pulmonolgist assigned. Management as per referring Alumni Coordinator Manual sheath removal., Risk factor modification Bariatric surgery consultation. asa/plavix for life. Tobacco cessation. DESCRIPTION OF PROCEDURE The patient arrived to the procedure lab. The risks and benefits of the procedure as well as a full d escription of our services here and current unavailability of surgical backup were fully explained to the patient and/or their significant other prior to the catheterization. The Timeout was completed, verifying the correct patient and procedure. The patient's procedural site was prepped and draped in the usual fashion. Local anesthetic was given subcutaneously to right groin region with Lidocaine 2%. Using a modified Seldinger technique, arterial access was obtained via the right femoral artery, a 4 Fr sheath was inserted Venous access was obtained via the right femoral vein, a 7Fr sheath was insert ed. A 7Fr thermal dilution catheter was inserted and right heart pressures were recorded, it was then advanced to PA position for cardiac outputs. O2 saturations were then obtained. Thermal dilution car diac outputs were then recorded. Simultaneous pressures were then recorded. The Thermal dilution catheter was then removed. Left Ventriculography was performed in NEAL projection using a 4 F r. Pigtail catheter. LV to AO pullback pressures were then recorded. Left Coronary Artery selective a ngiography was performed in multiple views using a 4 Fr. JL5 catheter. Right Coronary Artery selectiv e angiography was then performed in multiple views using a 4 Fr. 3DRC catheter.The arterial sheath wa s pulled and manual compression applied until hemostasis is achieved. CORONARY ANGIOGRAPHY DOMINANCE: Right Dominant LEFT HEART ASSESSMENT Left Ventricular Ejection Fraction: by LV Gram 65 % Normal LV wall motion Normal Left Ventricular systolic function LVEDP: 14-15 mmHg Elevated Left Ventricular End Diastolic Pressure RIGHT HEART ASSESSMENT Thermal CO: 6.74 Thermal CI: 2.93 PW: 14 PA: 32/11 27 RV: 29/7 9 RA: 08/10 9 PVR: 154 SVR: 1128 Right Heart pressures - elevated Pulmonary Hypertension Mild LEFT MAIN: Angiographically normal LEFT ANTERIOR DECENDING ARTERY: Mild luminal irregularities less than 30% CIRCUMFLEX ARTERY: MID CIRC: Previously placed stent is patent DISTAL CIRC: Moderate luminal irregularities up to 50% RIGHT CORONARY ARTERY: MID RCA: Previously placed stent is patent RT PLV: Mild luminal irregularities less than 30% RT PDA: Mid - Previously placed stent is patent COMPLICATIONS No Complications PROCEDURE MEDICATIONS Versed 2 mg IV Oxygen: 2 L/min via nasal cannula SUMMARY OF HEMODYNAMIC DATA Time AIR REST ECG 08:18:05 RV 29/7, 9 09:54:28 PW (14) PV 09:55:02 PA 32/11 (27) PA 09:55:20 LV 140/-9, 14 09:59:43 LV 132/-8, 13 09:59:49 LV 142/-10, 13 10:00:08 PW 22/23 (20) 10:00:08 LV 129/-8, 13 10:00:16 PW 24/19 (20) 10:00:16 LV 138/-5, 18 10:00:30 RV 44/1, 12 10:00:30 LV 145/-8, 15 10:00:36 RV 39/7, 12 10:00:36 LV 129/-7, 14 10:00:48 RV 39/-1, 7 10:00:48 RA 08/10 (9) SV 10:01:06 LV 131/-4, 15 10:02:21 LVp 134/-5, 15 10:02:24 AOp 119/72 (91) 10:02:30 AO 120/86 (104) SA 10:04:16 Type SV CO (l/m) CI (l/m/ HR Time AIR REST Thermal 89.90 6.74 2.93 75 08:18:05 Label % O2 Pres/Loc Time AIR REST AO 87 PV 10:07:47 Signed By Misha Juarez MD On 11/15/2018 10:17:51 AM Misha Juarez MD
== END 2018-11-15 14:53 | disposition home or self-care (01) ==
LOC: CLSP 07:49
PROVIDERS: Family Provider Physician Assistant; PCP Physician Assistant; Referring Provider Internal Medicine Cardiovascular Disease; Visit Provider Internal Medicine Cardiovascular Disease
DX: I27.20 Pulmonary hypertension, unspecified (principal); I25.10 Atherosclerotic heart disease of native coronary artery without angina pectoris; I10 Essential (primary) hypertension; E78.5 Hyperlipidemia, unspecified; J98.4 Other disorders of lung; D47.2 Monoclonal gammopathy; G47.33 Obstructive sleep apnea (adult) (pediatric); Z86.73 Personal history of transient ischemic attack (TIA), and cerebral infarction without residual deficits; Z86.718 Personal history of other venous thrombosis and embolism; Z86.2 Personal history of diseases of the blood and blood-forming organs and certain disorders involving the immune mechanism; Z95.5 Presence of coronary angioplasty implant and graft; Z79.82 Long term (current) use of aspirin; Z79.899 Other long term (current) drug therapy; F17.200 Nicotine dependence, unspecified, uncomplicated
CPT/HCPCS: 36415; 80048; 82803; 93460; 99152; 99153; J7040; Q9967; C1751; C1769; C1894

== ENCOUNTER 2018-11-16 15:25 | Emergency (ER) | payer BC, SELFPAY ==
[2018-11-16] VITALS (8 sets, daily range): BP systolic 150–172; BP diastolic 70–100; PULSE 74–87; RESP 16–24; TEMP 36.1–36.7; O2SAT 93–99; BMI 41.8; BMI 38.9
--- NOTE | 2018-11-16 15:44 | RAD_ITS ---
STUDY: X-RAY CHEST REASON FOR EXAM: Male, 53 years old. Left-sided rib pain, heart catheter yesterday TECHNIQUE: AP COMPARISON: 11/05/2018 FINDINGS: EKG leads project over the chest. The lungs are clear but under expanded. There is no demonstrated pleural abnormality. Normal size heart. Normal mediastinum and susana. Normal visualized pulmonary arteries. Normal visualized aortic arch and descending thoracic aorta. No acute bony process. There is no demonstrated abnormality of the visualized soft tissue structures of the upper abdomen. RAD/Chest 1 View (Portable) IMPRESSION: Stable, nonacute portable x-ray examination of the chest. Electronically Signed: Ervin Benavides MD at 16:36 EST , Service support ,
--- NOTE | 2018-11-16 15:45 | EKG12_ITS ---
Test Reason : SOB/CP Blood Pressure : / mmHG Vent. Rate : 081 BPM Atrial Rate : 081 BPM P-R Int : 186 ms QRS Dur : 084 ms QT Int : 382 ms P-R-T Axes : 061 058 049 degrees QTc Int : 443 ms Normal sinus rhythm Possible Left atrial enlargement Borderline ECG Confirmed by PALOMA OLEARY, KAMILLE ([id number]), science editor YORDY BOWDEN ([id number]) on 11/19/2018 10:06:08 AM Referred By: Confirmed By:KAMILLE DOW MD
[2018-11-16] MEDS: 0.9% Normal Saline 1,000 ML 150 ML IV (15:53)
[2018-11-16] MEDS: HYDROmorphone 1 MG/ML Syringe IV (15:54)
[2018-11-16] MEDS: Ondansetron 4 MG/2 ML Vial IV (15:54)
[2018-11-16 16:04] LABS: Absolute Lymphocyte Count 2.35 X10^3/ul (0.83-4.51); Absolute Neutrophil Count 5.8 X10^3/uL (2.0-7.7); Basophil# 0.02 X10^3/uL; Basophil% 0.2 % (0-1); Eosinophil# 0.24 X10^3/uL; Eosinophils% 2.6 % (0-5); Hematocrit 42.2 % (40-54); Hemoglobin 13.9 g/dl (13.0-16.5); Lymphocyte # 2.35 X10^3/ul (4.0); Lymphocyte % 25.8 % (19-41); Mean Corp Hgb Conc 32.9 g/gl (32-36); Mean Corpuscular Hgb 32.9 pg (27.0-32.0); Mean Corpuscular Volume 99.8 fL (80-94); Mean Platelet Vol. 8.5 fl (6.2-12.0); Monocyte# 0.71 X10^3/uL; Monocyte% 7.8 % (0-10); Neutrophil # 5.76 X10^3/uL (2.7-7.7); Neutrophil % 63.3 % (47-70); Platelet Count 227 K/mm3 (150-450); RBC Distribution Width CV 15.5 % (11.6-14.6); RBC Distribution Width SD 56.1 fl (35.1-43.9); Red Blood Count 4.23 M/mm3 (4.6-6.2); White Blood Count 9.1 K/mm3 (4.4-11.0)
[2018-11-16 16:06] LABS: POSITIVE COUNT NO; POSITIVE DIFFERENTIAL NO; POSITIVE MORPHOLOGY NO
[2018-11-16 16:21] LABS: D-Dimer Quantitative (DVT/PE) 1.06 FEU/ug/m (0.27-0.49)
--- NOTE | 2018-11-16 16:21 | CT_ITS ---
STUDY: CTA CHEST REASON FOR EXAM: Male, 53 years old. Left-sided chest pain and shortness of breath RADIATION DOSAGE (If Supplied By Facility): CTDIvol = ( 16.72 ) mGy, DLP = ( 680.65 ) mGycm TECHNIQUE: The examination was performed with the intravenous administration of 100CC ml of Isovue 370 contrast material. Post-processing of the angiographic images was performed, with multiplanar reformation and 3D reconstruction. Individualized dose optimization techniques were used for this CT. COMPARISON: None. FINDINGS: Normal enhancement of the main pulmonary artery and right and left pulmonary arteries. Normal enhancement of the bilateral peripheral pulmonary arteries. There is no demonstrated pulmonary embolism. Normal thoracic aorta and visualized great vessels. There is no demonstrated aortic dissection. Normal heart and pericardium. There are calcifications of the coronary arteries. Normal mediastinum. Normal hilar regions. Normal visualized trachea and bronchi. The lungs are well expanded. Mild atelectasis in the lingula, left lower lobe and minimally in the right lower lobe. Normal pleura. Normal chest wall structures. There are degenerative changes of thoracic spine. Normal visualized upper abdomen. CT/CTA Chest W/WO Contrast IMPRESSION: 1. No central or segmental pulmonary embolism. 2. Mild left more than right basilar atelectasis. 3. Atherosclerosis including coronary arteries. Electronically Signed: Ervin Benavides MD at 17:38 EST , Service support ,
[2018-11-16] MEDS: HYDROmorphone 1 MG/ML Syringe 2 MG IV (16:29)
[2018-11-16 16:31] LABS: Anion Gap 8 (5-15); BUN 15 mg/dL (7-18); BUN/Creat Ratio 13.2 RATIO (10-20); Calcium,Total 8.8 mg/dL (8.5-10.1); Chloride 102 mmol/L (98-107); Creatinine, Serum 1.14 mg/dL (0.70-1.30); EST Glomerular Filtration Rate 71 mL/min (>60); Est Glom Filt Rate - Afr Amer 86 mL/min (>60); Estimated Creatinine Clearance 70.06 ml/min; Glucose 112 mg/dL (74-106); Potassium 3.7 mmol/L (3.5-5.1); Sodium Level 139 mmol/L (136-145)
--- NOTE | 2018-11-16 17:46 | NURSING ---
DR DOW PAGED
--- NOTE | 2018-11-16 17:51 | ED.DCSUM_ITS ---
- ER Visit Summary Date of Service: 11/16/18 Chief Complaint: [Left-sided chest pain] History of Present Illness: The patient is a 53 M [presents to the emergency department complaint left sided chest pain that started around 9 AM this morning. Patient complains of pain is worse with deep breath and describes it as sharp and stabbing. Patient feels slightly short of breath with it. Patient tells me he had a heart catheterization performed yesterday by Dr. Juarez. There were no blockages noted. Around 9 AM patient started having increased discomfort. Patient denies recent travel or recent surgery otherwise. Patient does have a history of coronary artery disease with 5 cardiac stents. Patient has a history of hypertension.] Physical Examination: [HEENT-PERRLA, EOMI. Cranial nerves II through XII grossly intact. TMs clear. Mucous membranes moist. No adenopathy. Cardiovascular-regular rate and rhythm without murmur or ectopy Lungs-clear to auscultation, chest wall stable without crepitus or subcu emphysema Abdomen-normoactive bowel sounds, soft, nontender, no rebound or rigidity, no peritoneal signs. Extremities-intact ?4, normal range of motion, normal pulses, atraumatic] Test Results: [EKG obtained on arrival showed a sinus rhythm with a ventricular rate of 81 bpm with no acute I segment changes. CBC with differential obtained showed a white count 7.4, hemoglobin 10.6, hematocrit 30, placed 221. Chemistries unremarkable. Troponin is less than 0.015. D-dimer was 1.06. CTA of the chest obtained showed no PE or dissection. Chest x-ray prior to that obtained was stable and showed no evidence of pneumothorax.] Emergency Department Course and Treatment: [Patient was medicated with Dilaudid and had good pain relief with that. Patient case was discussed with Dr. Geovani Ashford who is on-call for Dr. Juarez and asked that I start patient on an anti- inflammatory case patient might have the start of a pericarditis although I do not see any evidence of this on EKG.] Treatment Plan: [Patient will be given a prescription for [place] and naproxen] Disposition: [Discharged home in stable condition] Impression: [Chest pain-etiology uncertain] This note was generated with [employer] software. It may contain incorrect words, spelling, and punctuation that were not noted in review of the chart prior to signing ED Disposition - Plan for ED Patient: Referrals: Lucia Pandya PA [Primary Care Provider] -
--- NOTE | 2018-11-16 17:51 | ED.DEP ---
ED Disposition - Plan for ED Patient: Instructions: ED Chest Pain Atypical Unkn Cause Prescriptions: Oxycodone HCl/Acetaminophen [Percocet 5/325] 1 tab PO Q6H PRN PRN 5 Days #20 tab PRN Reason: Pain Naproxen [Naprosyn] 500 mg PO BID PRN #20 tab Referrals: Misha Juarez MD [STAFF PHYSICIAN] - 3-5 Days Lucia Pandya PA [Primary Care Provider] - 3-5 Days
== END 2018-11-16 18:06 | disposition home or self-care (01) ==
LOC: ED 15:57
PROVIDERS: Emergency Provider Emergency Medicine; Family Provider Physician Assistant; PCP Physician Assistant
DX: R07.89 Other chest pain (principal); R06.00 Dyspnea, unspecified; R05 Cough; I25.10 Atherosclerotic heart disease of native coronary artery without angina pectoris; I10 Essential (primary) hypertension; E78.00 Pure hypercholesterolemia, unspecified; Z95.5 Presence of coronary angioplasty implant and graft; Z79.82 Long term (current) use of aspirin; Z79.899 Other long term (current) drug therapy; Z72.0 Tobacco use
CPT/HCPCS: 71045; 71275; 80048; 84484; 85025; 85379; 93005; 96361; 96374; 96375; 99284; J7030; Q9967; A4216; J2405

== ENCOUNTER → 2018-11-19 06:44 | Outpatient (CLI) | payer BC, SELFPAY ==
[2018-11-16 15:26] VITALS: BMI 38.9
--- NOTE | 2018-11-19 14:47 | PFTCOMP_ITS ---
COMPLETE PULMONARY FUNCTION TEST INTERPRETATION Brief HPI: Patient is a 53 year old male, currently under the care of Dr. Juarez, who presents to [facility] for complete pulmonary function tests secondary to diagnosis of dyspnea. Respiratory therapist reports good effort and reproducible results. Interpretation: Forced expiration spirometry shows a moderately-severe large airways obstructive ventilatory defect with an FEV1 of 54% predicted. There is no significant bronchodilator response by strict ATS criteria. Spirograms are of good quality and plateau slowly, indicating slowly emptying areas of the lungs. The respiratory flow volume loop shows decreased expiratory flow rates at all lung volumes consistent with airway obstruction. Lung volumes by body plethysmography show a normal total lung capacity at 6.11 L, 101% predicted. FRC and RV are elevated out of proportion. Lung volume measurements are consistent with air-trapping. Diffusion capacity by carbon monoxide is normal at 77% predicted. The airway resistance is elevated. No previous pulmonary function tests were available for review. Impression: Irreversible moderately severe large airways obstructive ventilatory defect resulting in air trapping and in a pattern consistent with chronic bronchitis.
== END ==
PROVIDERS: Family Provider Physician Assistant; PCP Physician Assistant; Referring Provider Physician Assistant Medical; Visit Provider Physician Assistant Medical
DX: R06.09 Other forms of dyspnea (principal); I27.20 Pulmonary hypertension, unspecified; F17.200 Nicotine dependence, unspecified, uncomplicated
CPT/HCPCS: 94060; 94726; 94729

== ENCOUNTER → 2019-03-10 | Outpatient (CLI) | payer BC, SELFPAY ==
[2019-03-07 10:03] VITALS: BMI 38.7
[2019-03-10 11:33] LABS: Hematocrit 44.9 % (40-54); Mean Corp Hgb Conc 33.4 g/gl (32-36); Mean Corpuscular Hgb 32.4 pg (27.0-32.0); Mean Platelet Vol. 9.1 fl (6.2-12.0); Platelet Count 247 K/mm3 (150-450); RBC Distribution Width CV 14.9 % (11.6-14.6); RBC Distribution Width SD 52.8 fl (35.1-43.9); Red Blood Count 4.63 M/mm3 (4.6-6.2); White Blood Count 8.5 K/mm3 (4.4-11.0)
[2019-03-10 11:35] LABS: Scan Indicated on CBC? Y/N NO
[2019-03-10 12:03] LABS: Anion Gap 7 (5-15); BUN 17 mg/dL (7-18); BUN/Creat Ratio 16.7 RATIO (10-20); Calcium,Total 9.3 mg/dL (8.5-10.1); Chloride 101 mmol/L (98-107); Creatinine, Serum 1.02 mg/dL (0.70-1.30); EST Glomerular Filtration Rate 81 mL/min (>60); Est Glom Filt Rate - Afr Amer 98 mL/min (>60); Glucose 99 mg/dL (74-106); Potassium 3.8 mmol/L (3.5-5.1); Sodium Level 143 mmol/L (136-145)
== END | disposition home or self-care (01) ==
LOC: LAB 10:41
PROVIDERS: Family Provider Physician Assistant; PCP Physician Assistant; Referring Provider Physician Assistant; Visit Provider Physician Assistant
DX: Z01.818 Encounter for other preprocedural examination (principal); Z01.810 Encounter for preprocedural cardiovascular examination
CPT/HCPCS: 36415; 80048; 85027

== ENCOUNTER 2019-05-19 10:01 | Inpatient (IN) | payer BC, SELFPAY ==
[2019-03-07 10:03] VITALS: BMI 38.7
[2019-05-12 11:21] VITALS: BP 155/100; PULSE 78; RESP 16; TEMP 36.2; O2SAT 96; BMI 40.4
[2019-05-19] VITALS (11 sets, daily range): BP systolic 120–168; BP diastolic 68–99; PULSE 83–96; RESP 16–18; TEMP 36.3–37.4; O2SAT 89–95; BMI 40.4
[2019-05-19] MEDS: Magnesium Sulfate 4gm/100mL 4 GM/100 ML IV.SOLN. IV (10:57)
[2019-05-19] MEDS: Celecoxib 200 MG Capsule 400 MG PO (11:13)
[2019-05-19] MEDS: Famotidine 20 MG Tablet 40 MG PO (11:14)
[2019-05-19] MEDS: Gabapentin 600 MG Tablet PO (11:14)
[2019-05-19] MEDS: Acetaminophen 500 MG Tablet 1000 MG PO ×3 (11:14→21:48)
--- NOTE | 2019-05-19 11:45 | KNEE_PTH ---
PATIENT: TWIN CHAMBERS LOC: MS3 U#:[id number] AGE/SX: 54/M [place] [facility] [place]: Dr. Seamus Roy DO : 1965 BED: 1 DIS: 05/20/2019 SPEC #: [id number] RECD: 05/19/19 15:37 STATUS: GOPI REQ #: [id number] ELISEO: 05/19/19 11:[address]: Seamus Roy DEPT: SURGICAL PATHOLOGY RECD BY: Mikie Vallejo ENTERED: 05/20/19 07:46 SP TYPE: TOTAL KNEE OTHR DR: Dr. Vadim Encinas MD Tissues: A - Knee, NOS B - Knee, NOS Procedures: Decalcification bone/plaque Surgery Specimen Level IV HEADER OPERATION: ERAS, right total knee replacement, left knee steroid injection PRE-OP DIAGNOSIS: Posttraumatic right knee arthritis TISSUE SUBMITTED: A - Soft tissue right knee, B - Right knee bone and soft tissue MICROSCOPIC DIAGNOSIS A. Soft tissue right knee: Fragments of fibroadipose tissue, fibroconnective tissue, reactive synovial tissue with chronic inflammation, granulation tissue reaction and fibrinous exudation. B. Right knee bone and soft tissue: Pieces of bone with degenerative osteoarthritic changes. Fibroadipose tissue, fibroconnective tissue and reactive synovial tissue. SOSA:paras 05/23/19 MICROSCOPIC DESCRIPTION Slides are reviewed. GROSS DESCRIPTION A - Received is one container designated soft tissue right knee. The specimen consists of multiple fragments of bonilla-yellow soft tissue measuring in aggregate 5 x 3 x 1 cm. Sections reveal a focal area of hemorrhagic cut surfaces. Paper Bundler sections are submitted in two cassettes. B - Received is one container designated right knee bone and soft tissue. The specimen consists of multiple fragments of bonilla-yellow bone measuring in aggregate 12 x 10 x 3.5 cm. Also in the specimen container are multiple fragments of yellow-white soft tissue measuring in aggregate 10 x 9 x 3 cm. A number of bony fragments contain articular surfaces consistent with tibial plateau and femoral condyle and displaying prominent osteophyte formation and bone erosion. Paper Bundler sections are submitted in two cassettes as follows: 1 - soft tissue, 2 - bone after decalcification. / SOSA:paras 05/20/19 TC:5 CPT: 55310 x2, 76904
[2019-05-19 11:51] LABS: Bedside Glucose 90 mg/dL (70-110)
[2019-05-19] MEDS: Cefazolin 2 GM in 0.9% Normal Saline 100 ML IV (12:48)
[2019-05-19] MEDS: Lactated Ringers 1,000 ML 125 ML IV (12:55)
--- NOTE | 2019-05-19 14:01 | OP.PCM_ITS ---
Report of Operation Date of Procedure: 05/19/19 Pre-Operative Diagnosis: OA right knee Post-Operative Diagnosis: same Surgery/Procedure Performed:: Right TKR retail gift card merchandising: Dionte Dumont Type of Anesthesia:: General Anesthesiologist: Kip Barnett Specimen's removed: bone Description of Procedure: Primary Surgeon/Physician: Seamus Roy retail gift card merchandising: Eddie Dumont PA-C retail gift card merchandising: Pre-Operative Diagnosis: OA bilateral knees Post-Operative Diagnosis: same Surgery/Procedure Performed: Right TKR and cortisone injection left knee Estimated Blood Loss: 25cc Specimen's Removed: bone Type of Anesthesia: general after failed attempt at spinal ASA Class: 3 Implants: [[place] Triathlon size 5 femur, size 5 tibia, 38 mm patella, 9 mm CS polyethylene (all components press fit) ] Indications: Patient has severe end-stage osteoarthritis diagnosed via x-rays in the knee. They have failed all forms of conservative measures including activity modification, injections, anti-inflammatories, use of assistive device. The patient has pain that affects on a daily basis and prevents him from doing things that they enjoyed. They have elected to undergo the above procedure. The risks of the procedure were discussed at length and their questions were answered. Procedure Description: The patient was greeted in the preoperative area. The [right ] knee was then marked with a surgical marker. Patient was then taken to or [address]. They were administered a dose of antibiotics as well as tranexamic acid. Once adequate anesthesia was obtained and airway was secured to placed in supine position on the operating room table. A well-padded tourniquet was placed on the affected extremity. Leg was then prepped and draped in the usual sterile fashion from the knee down. Ioban was used on the skin. Surgical timeout was then performed and confirmed with all present. Six-inch Esmarch was used to examine the limb and tourniquet was then inflated to 250 mmHg. A longitudinal incision was then planned and carried out in the anterior aspect of the knee. The dissection was then carried the length of the incision the extensor mechanism was identified. Standard medial parapatellar arthrotomy was then performed revealing severe eburnation of bone and periarticular osteophytes. There is complete loss of cartilage especially in the medial compartment with varus alignment. Anterior fat pad was removed for visu alization purposes and the anterior medial aspect of the tibia was skeletonized for exposure to the knee. The knee was then flexed the patella was inverted. Opening reamer was then used in the femur approximately 1 cm anterior to the attachment of the PCL. The intramedullary valgus wand was then placed in the femur set at 5? of valgus. The distal femoral cutting jig was then applied to the femur with anticipated resection of approximately 8 mm. This was then made with a oscillating saw. The sizing guide was then placed referencing off the posterior condyles and also reference off the epicondylar axis. This was measured and the appropriate size 4-in-1 cutting jig was then applied to the distal femur. Anterior posterior cuts were made followed by the anterior and posterior chamfer cuts. These bony pieces and fragments were removed and placed on the back table. Posterior retractor was then utilized and the tibia was subluxed anteriorly. Intramedullary tibial alignment jig was then applied to the tibia referencing off the medial one third of the tibial tubercle the anterior tibial spine the middle aspect of the tibiotalar joint. Also reference off patient's [place] slope. The tibial cutting jig was then pinned with anticipated resection of 2 mm off of the deficient medial tibial condyle. This cut was made with the oscillating saw. Once this was complete a laminar spre ader was utilized in both medial lateral meniscus were removed and a posterior capsular osteophytes were also removed. Posterior capsule release was performed in the posterior capsule as well as the geniculate arteries are treated with the aqua Remi. The tibia was incised and the appropriate sized tibial tray was then pinned. The femoral trial was then placed and the knee was trialed. Full flexion-extension were easily achieved. The knee seemed to balance quite nicely. Any remaining osteophytes were removed at this time. Once this was complete the patella was everted and the HASH patella reaming device was then utilized the patella was then placed in the appropriate jig and reamer was then used to remove approximately 9 mm of the undersurface of the patella. A soft tissue remaining was in the way was removed and patella trial was then placed listed maintain excellent tracking using the no thumbs technique. The tibial tray at this point was punched to accommodate the fins of the final implant. At this point, the tibia, femur and patella were impacted into place. The knee was once again trialed with different size polyethylenes to ensure the full range of motion was achieved as well as excellent balancing ligamentously was achieved. At this point the knee was copiously irrigated. The tourniquet was released and hemostasis was achieved. Final implant was then inserted locking mechanism was engaged and confirmed to be locked. The arthrotomy was then closed with #1 Vicryl aggravate type fashion interrupted. Subcutaneous tissue was closed with 0 Vicryl and surgical cresencio were placed in the skin. A occlusive silver impregnated dressing was then applied followed by well-padded sterile dressing secured with an Moose wrap. The left knee was prepared using sterile technique and injected with 4 cc of 1% Lidocaine and 2cc of Celestone Soluspan. The patient was taken to the PACU in stable condition. No complications known at this time. Postoperatively we will maintain standard total knee postoperative protocol. The use of the physician microbiology lab assistant was integral during this procedure. They assisted with positioning placement of the tourniquet retracting closure and placement of the dressing. The procedure would have been much more difficult without their expertise and assistance - Admit VTE Documentation VTE Present on Admission: No VTE Mechan Device Prophylaxis: SCD's, Thigh High MIKAL Hose VTE Pharm Prophylaxis ordered?: Yes
[2019-05-19] MEDS: Betamethasone/Betamethasone 30 MG/5 ML Vial (14:25)
[2019-05-19] MEDS: oxyCODONE 5 MG Tablet PO (16:30)
--- NOTE | 2019-05-19 17:10 | NURSING ---
Patient calling out for nurse. This RN to room to assess patient. Patient tense, gripping side rails and moaning. The patient states he is having severe 10/10 pain. I first loosened the ice pack and this brought relief. I also rewrapped yaron wrap. The patient reports pain is improved. KATIUSKA Morrison notified.
[2019-05-19] MEDS: Aspirin 325 MG Tablet PO (17:58)
[2019-05-19] MEDS: Carvedilol 12.5 MG Tablet PO (17:58)
[2019-05-19] MEDS: Furosemide 80 MG Tablet PO (17:59)
[2019-05-19] MEDS: Senna/Docusate Sodium 1 Tablet 2 TABLET PO (21:47)
[2019-05-19] MEDS: Pravastatin 40 MG Tablet PO (21:47)
[2019-05-19] MEDS: Cefazolin 1 GM/50 ML BAG IV (21:47)
[2019-05-19] MEDS: Zolpidem Tartrate 5 MG Tablet 10 MG PO (23:42)
[2019-05-20 05:13] LABS: Hematocrit 39.5 % (40-54); Hemoglobin 13.2 g/dL (13.0-16.5); Mean Corp Hgb Conc 33.4 g/dL (32-36); Mean Corpuscular Hgb 32.6 pg (27.0-32.0); Mean Corpuscular Volume 97.5 fL (80-94); Mean Platelet Vol. 8.5 fl (6.2-12.0); Platelet Count 228 K/mm3 (150-450); RBC Distribution Width CV 14.9 % (11.6-14.6); RBC Distribution Width SD 53.6 fl (35.1-43.9); Red Blood Count 4.05 M/mm3 (4.6-6.2); White Blood Count 14.4 K/mm3 (4.4-11.0)
[2019-05-20 05:25] LABS: Anion Gap 7 (5-15); BUN 19 mg/dL (7-18); BUN/Creat Ratio 13.5 RATIO (10-20); Calcium,Total 8.6 mg/dL (8.5-10.1); Chloride 100 mmol/L (98-107); Creatinine, Serum 1.41 mg/dL (0.70-1.30); EST Glomerular Filtration Rate 56 mL/min (>60); Est Glom Filt Rate - Afr Amer 67 mL/min (>60); Estimated Creatinine Clearance 54.05 ml/min; Glucose 174 mg/dL (74-106); Potassium 3.8 mmol/L (3.5-5.1); Sodium Level 137 mmol/L (136-145)
[2019-05-20] MEDS: Acetaminophen 500 MG Tablet 1000 MG PO (05:39)
[2019-05-20] MEDS: Cefazolin 1 GM/50 ML BAG IV (05:39)
[2019-05-20 07:30] VITALS: O2SAT 90
--- NOTE | 2019-05-20 07:40 | PCM.PN.ORT ---
Subjective: Patient sitting at bedside eating breakfast. Patient's pain is well managed. Patient denies chest pain, shortness of breath, calf pain, nausea vomiting. Patient has no other complaints, states he is ready for discharge home. Objective: Patient dressing is clean dry intact. Negative signs and symptoms of DVT. Patient has good flexion-extension of the knee. Patient has flexion to 90 degrees extension to 0. Patient has no palpable crepitus or instability of the knee. Patient's afebrile, neurovascular is otherwise intact. Vital signs and labs within normal limits. - Physical Exam General: Alert, Oriented x3, Cooperative HEENT: PERRLA Cardiovascular: Regular rate Neurological: Cranial nerves II-XII grossly intact Psych/Mental Status: Normal Affect, Alert and oriented to time, place, person, mood and affect Vital Signs Temp Pulse Resp BP Pulse Ox 98.8 F 93 16 143/88 H 89 05/19/19 20:13 05/19/19 20:13 05/19/19 20:13 05/19/19 20:13 05/19/19 20:29 Oxygen Flow Rate (L/min) 2 Oxygen Delivery Method Nasal Cannula Weight: 113.7 kg Body Mass Index (BMI) 40.4 Intake and Output for Last 24 Hours 05/18/19 05/19/19 05/20/19 23:59 23:59 23:59 Intake Total 3300 / 5087 2377 / 2377 Output Total 500 / 500 Balance 3300 / 5087 1877 / 1877 Laboratory Tests Past 24 Hrs 05/20/19 05/20/19 04:56 04:56 WBC 14.4 H RBC 4.05 L Hgb 13.2 Hct 39.5 L MCV 97.5 H MCH 32.6 H MCHC 33.4 RDW Std Deviation 53.6 H RDW Coeff of Alena 14.9 H Plt Count 228 MPV 8.5 Sodium 137 Potassium 3.8 Chloride 100 Carbon Dioxide 30.0 Anion Gap 7 BUN 19 H Creatinine 1.41 H Estim Creat Clear Calc 54.05 Est GFR (MDRD) Af Amer 67 Est GFR (MDRD) Non-Af 56 L BUN/Creatinine Ratio 13.5 Glucose 174 H Calcium 8.6 POC Glucose 05/19/19 11:11 POC Glucose 90 Medical Necessity - Tobacco Use Smoking Status: Current every day smoker Tobacco Use: Cigarettes Assessment/Plan All Active Problems (Last Updated 03/06/19 @ 18:58 by Nasima Orr) Unstable angina pectoris (Acute) Chest pain (Acute) Abnormal stress test (Acute) Status post right total knee arthroplasty Plan 1. Continue all pain medications as prescribed 2. Continue Plavix as prescribed 75 mg p.o. daily. For postop DVT prophylaxis 3. Continue physical therapy, patient will continue outpatient therapy at [facility] [place]. 4. Encourage incentive spirometry. 5. Follow-up as scheduled, see pink sheet 6. Discharge home today after p.m. therapy.
--- NOTE | 2019-05-20 07:49 | DCINST_ITS ---
Discharge Diet: No Restrictions Discharge Activity: May Not Drive, May Shower, Use Walker May shower in (days): 3 Ice area for (Minutes): 20 - each hour while awake. Weight Bearing Status: Weight bearing as tolerated Elevate: Operative Extremity Additional Activity Instructions:: Wear elastic stockings for 2 weeks after your surgery. Call your doctor if your incision/area has: Continuous Slow Oozing, Sudden Increased Bleeding, Increased Pain/ Swelling, Increased Redness, Foul Smelling Discharge Call your doctor if you observe: Fever of 101 or Higher, Coldness, Increased Pain - in extremity, Numbness or Tingling, Change in Color, Calf discomfort, Uncontrolled pain Change Dressing in (Days):: 1 - and daily as needed. Cleanse incision/area with: Soap & Water Allergies/Adverse Reactions: Allergies cyclobenzaprine [From Flexeril] Adverse Reaction (Verified 03/07/19 10:05) Upset Stomach hydrocodone bitartrate [From Vicodin] Adverse Reaction (Verified 03/07/19 10:05) Upset Stomach tramadol Adverse Reaction (Verified 03/07/19 10:05) Upset Stomach Medications to take at Discharge Zolpidem Tartrate [Ambien] 10 mg PO QHS 01/08/15 Albuterol IH (ProAir) [Proair Hfa] 1 - 2 puff INHALATION Q6H PRN PRN 02/20/18 aspirin 81 mg tablet,delayed release 81 mg PO DAILY 03/16/18 clopidogrel 75 mg tablet 75 mg PO DAILY #90 tab 04/30/18 Losartan Potassium [Cozaar] 50 mg PO DAILY 11/05/18 Potassium Chloride 10 meq PO DAILY 11/05/18 Pravastatin [Pravachol] 40 mg PO QHS 11/05/18 Tizanidine HCl 4 mg PO DAILY PRN PRN 11/05/18 carvedilol 12.5 mg tablet 12.5 mg PO BID #180 tab 11/13/18 furosemide 40 mg tablet 80 mg PO BID #120 tab 11/19/18 nitroglycerin 0.4 mg sublingual tablet 0.4 mg SUBLINGUAL Q5M PRN #50 tab 03/07/19 Acetaminophen [Tylenol] 1,000 mg PO Q8 #90 tab 05/20/19 Clopidogrel Bisulfate [Plavix] 75 mg PO DAILY #30 tab 05/20/19 Oxycodone [Oxyir] 5 - 10 mg PO Q4H PRN PRN 7 Days #90 tab 05/20/19 The following prescriptions were given: Oxycodone [Oxyir] 5 - 10 mg PO Q4H PRN PRN 7 Days #90 tab PRN Reason: Mod-Severe Pain (-07/10) Prescription Printed Clopidogrel Bisulfate [Plavix] 75 mg PO DAILY #30 tab Prescription Printed Acetaminophen [Tylenol] 1,000 mg PO Q8 #90 tab Prescription Printed Primary Care Physician: Vadim Encinas MD [Primary Care Provider] - Test Results: Test results from this visit will be discussed in further detail at your follow- up appointment, if applicable. Please Follow Up With: Seamus Roy, DO When: see pink sheet
[2019-05-20 08:07] VITALS: BP 125/63; PULSE 84; RESP 18; TEMP 37.1; O2SAT 92
[2019-05-20] MEDS: Carvedilol 12.5 MG Tablet PO (08:11)
[2019-05-20] MEDS: Aspirin 325 MG Tablet PO (08:11)
[2019-05-20] MEDS: oxyCODONE 5 MG Tablet PO (08:13)
[2019-05-20] MEDS: Clopidogrel Bisulfate 75 MG Tablet PO (10:15)
[2019-05-20] MEDS: Furosemide 80 MG Tablet PO (10:15)
--- NOTE | 2019-05-20 10:15 | CASEMGMT ---
KATIUSKA GLOVER Face to Face with patient for initial transition planning/care coordination assessment. RN CM introduced self and role at [facility]. Patient sitting in chair, alert and oriented, at bedside. Patient willing to participate in assessment and is able to answer all questions appropriately. Care providers, pharmacy, and demographics verified. Patient wishes to discharge home and is setup with [facility] for outpatient therapy. Patient states he has no further needs or concerns at this time. CM to follow for discharge planning needs that may arise. PCP: Huang Specialists: michaela Roy; Larry residence leasing agent Preferred Pharmacy: [facility] Insurance: [employer] Prescription Benefit: yes Living Will/HPOA: yes, Gena Newman HPOA LNOK: Living Arrangements: Patient lives with in single story home with 2 steps to enter the home. Patient was independent prior to surgery. Transportation: DME/HHC: Patient states he has walker and crutches at home. Outpatient therapy setup at [facility]. Disposition Plan: Patient to discharge home with outpatient therapy, family support, and follow-up plans in place. Sonia SIEGEL, RN, CM
[2019-05-20] MEDS: Senna/Docusate Sodium 1 Tablet 2 TABLET PO (10:16)
[2019-05-20] MEDS: Losartan Potassium 50 MG Tablet PO (10:16)
== END 2019-05-20 10:30 | disposition home or self-care (01) | DRG 470 ==
PROVIDERS: Admitting Provider Orthopaedic Surgery; Family Provider Family Medicine; PCP Family Medicine; Referring Provider Orthopaedic Surgery; Visit Provider Orthopaedic Surgery
PROC: 0SRC0JA Replacement of Right Knee Joint with Synthetic Substitute, Uncemented, Open Approach (ICD-10-PCS; CPT 27447; principal; 2019-05-19 11:45)
DX: M17.0 Bilateral primary osteoarthritis of knee (principal)
CPT/HCPCS: 36415; 80048; 82962; 85027; 87081; 88305; 88311; 97162; 97165; C1776; J7120; J0702

== ENCOUNTER 2019-05-21 14:06 | Emergency (ER) | payer BC, SELFPAY ==
[2019-05-19 16:13] VITALS: BMI 40.4
[2019-05-21 14:06] VITALS: BP 189/94; PULSE 100; RESP 18; O2SAT 94
[2019-05-21 14:07] VITALS: BP 167/106; PULSE 100; RESP 17; TEMP 36.7; O2SAT 97; BMI 39.5
--- NOTE | 2019-05-21 14:33 | RAD_ITS ---
STUDY: X-RAY CHEST REASON FOR EXAM: Male, 54 years old. Worsening shortness of breath TECHNIQUE: Single AP portable view of the chest. COMPARISON: 11/16/18 FINDINGS: EKG leads overlie the chest The lungs are clear and expanded. There is no demonstrated pleural abnormality. Normal size heart. Normal mediastinum and susana. Normal visualized pulmonary arteries. Normal visualized aortic arch and descending thoracic aorta. Normal visualized thoracic spine. Normal visualized ribs, clavicles, and shoulders. There is no demonstrated abnormality of the visualized soft tissue structures of the upper abdomen. RAD/Chest 1 View (Portable) IMPRESSION: No acute pulmonary process Electronically Signed: Mina Ray MD at 14:55 EDT , Service support ,
--- NOTE | 2019-05-21 14:34 | EKG12_ITS ---
Test Reason : GENERAL ILLNESS Blood Pressure : / mmHG Vent. Rate : 094 BPM Atrial Rate : 094 BPM P-R Int : 178 ms QRS Dur : 102 ms QT Int : 370 ms P-R-T Axes : 061 059 031 degrees QTc Int : 462 ms Normal sinus rhythm Possible Left atrial enlargement Borderline ECG Confirmed by SHABBIR BACON ([id number]), science editor IESHA [place] ([id number]) on 05/26/2019 2:05:36 PM Referred By: BENITA Confirmed By:SHABBIR BACON
[2019-05-21] MEDS: Ipratropium/Albuterol Sulfate 3 ML AMPUL.NEB INHALATION (14:51)
[2019-05-21 14:52] VITALS: PULSE 87; RESP 18
[2019-05-21 14:54] LABS: Absolute Lymphocyte Count 2.88 X10^3/uL (0.83-4.51); Absolute Neutrophil Count 6.2 X10^3/uL (2.0-7.7); Basophil# 0.03 X10^3/uL; Basophil% 0.3 % (0-1); Eosinophil# 0.16 X10^3/uL; Eosinophils% 1.5 % (0-5); Hematocrit 37.9 % (40-54); Lymphocyte # 2.88 X10^3/ul (4.0); Lymphocyte % 27.5 % (19-41); Mean Corp Hgb Conc 34.3 g/dL (32-36); Mean Corpuscular Hgb 33.1 pg (27.0-32.0); Mean Corpuscular Volume 96.4 fL (80-94); Mean Platelet Vol. 8.9 fl (6.2-12.0); Monocyte# 1.13 X10^3/uL; Monocyte% 10.8 % (0-10); NRBC Flagged by Analyzer 0 % (0-5); Neutrophil % 59.3 % (47-70); Platelet Count 224 K/mm3 (150-450); RBC Distribution Width CV 15.1 % (11.6-14.6); RBC Distribution Width SD 53.4 fl (35.1-43.9); Red Blood Count 3.93 M/mm3 (4.6-6.2); White Blood Count 10.5 K/mm3 (4.4-11.0)
[2019-05-21 15:04] LABS: Anion Gap 5 (5-15); BUN 24 mg/dL (7-18); BUN/Creat Ratio 21.4 RATIO (10-20); Calcium,Total 8.7 mg/dL (8.5-10.1); Chloride 101 mmol/L (98-107); Creatinine, Serum 1.12 mg/dL (0.70-1.30); EST Glomerular Filtration Rate 73 mL/min (>60); Est Glom Filt Rate - Afr Amer 88 mL/min (>60); Estimated Creatinine Clearance 68.04 ml/min; Glucose 110 mg/dL (74-106); Sodium Level 138 mmol/L (136-145)
[2019-05-21 15:06] VITALS: BP 175/96; PULSE 94; RESP 16; O2SAT 94
--- NOTE | 2019-05-21 15:15 | ED.DCSUM_ITS ---
- ER Visit Summary Date of Service: 05/21/19 Chief Complaint: Left pupil dilated History of Present Illness: The patient is a [address] Roy, Dr. Encinas, and Dr. Juarez. He reports that 2 days ago he had a right total knee replacement by Dr. Roy. States that this seems like it is healing well. He is having pain. But is not more than he had expected. Patient reports that approximately an hour ago he woke up from a nap and his vision was blurred for approximately 15 seconds. He looked in the mirror and found that his left pupil was dilated. He denies any double vision. No headache. No aphasia. No vertigo. No numbness or weakness. Physical Examination: Vitals: Stable. Afebrile. General: Well-nourished and well-developed. Head: Normocephalic atraumatic. Eyes: Left pupil is 8 mm and right pupil is 4 mm. The left is reactive, but not as much as the right. Extraocular motions are intact. Neck: Supple, no lymphadenopathy. No JVD. Nontender. Cardiovascular: Regular rate and rhythm. No murmurs. Respiratory: No respiratory distress. Mild wheezing bilaterally with good air movement. Abdominal: Soft, nontender, nondistended, normal bowel sounds. No guarding, rebound, or peritoneal signs. Back: Nontender. Extremities: Dressing in place over his right knee. There is no erythema or warmth surrounding this to suggest infection. Skin: Normal color, no rash. Neurologic: Alert and oriented ?3. Cranial nerves II through XII are intact. Normal strength and sensation. Psych: Normal affect. Test Results: EKG is sinus at 94 with no acute changes. CBC shows monocytes of 11. Chem-7 shows a potassium 3.0, glucose 110, BUN of 24. Chest x-ray shows no acute disease. Emergency Department Course and Treatment: Patient was given albuterol and Atrovent aerosols while here. He is resting comfortably. Treatment Plan: Patient was discussed with Dr. Valentin who asked if the patient had put any drops in his diet. I discussed this with the patient and he reports he is not putting any medication in his eye. However, he did not remember that it had a scopolamine patch behind his left ear. He removed the patch, but did not wash the skin where it was removed. This was discussed with Dr. Valentin and this is the most likely cause of his dilated pupil. He will follow-up with him in the office tomorrow for another exam. Return to the emergency department for any worsening symptoms. Disposition: To home in improved and stable condition. Impression: 1. Left pupil dilation from scopolamine. 2. 2 days status post right total knee arthroplasty. This note was generated with [employer] dictation software. It may contain incorrect words, spelling, and punctuation that were not noted in review of the chart prior to signing ED Disposition - Plan for ED Patient: Disposition: Home or Assisted Living Instructions: DRUG REACTION, Other Referrals: Erik Valentin MD [STAFF PHYSICIAN] - 1 Day for another exam
== END 2019-05-21 15:45 | disposition home or self-care (01) ==
LOC: ED 14:47
PROVIDERS: Emergency Provider Emergency Medicine; Family Provider Family Medicine; PCP Family Medicine
DX: H57.04 Mydriasis (principal); T44.3X5A Adverse effect of other parasympatholytics [anticholinergics and antimuscarinics] and spasmolytics, initial encounter; Y92.9 Unspecified place or not applicable; Z96.651 Presence of right artificial knee joint; I25.10 Atherosclerotic heart disease of native coronary artery without angina pectoris; J44.9 Chronic obstructive pulmonary disease, unspecified; I10 Essential (primary) hypertension; E78.00 Pure hypercholesterolemia, unspecified; Z86.73 Personal history of transient ischemic attack (TIA), and cerebral infarction without residual deficits; Z95.5 Presence of coronary angioplasty implant and graft; Z79.02 Long term (current) use of antithrombotics/antiplatelets; Z79.82 Long term (current) use of aspirin; Z79.899 Other long term (current) drug therapy; F17.200 Nicotine dependence, unspecified, uncomplicated
CPT/HCPCS: 71045; 80048; 85025; 93005; 94640; 96360; 99284; J7040; A4216

== ENCOUNTER → 2019-10-03 13:11 | Outpatient (CLI) | payer OTHER, SELFPAY ==
[2019-06-27 13:49] VITALS: BMI 39.5
--- NOTE | 2019-10-03 13:15 | US_ITS ---
PROCEDURES: TRANSRECTAL ULTRASOUND GUIDED - PROSTATE REASON FOR EXAM: Male, 54 years old. LEFT BUTTOCK PAIN -- URINE FREQUENCY-SLOW STREAM TECHNIQUE: Ultrasound evaluation of the prostate was performed with real-time and static herrera-scale imaging. BIOPSY: A needle core biopsy was perform. A consent form was signed, PT-PTT levels checked and a time-out was called. The patient is currently off any anticoagulant therapy. Cleansing enema: Yes COMPARISON: None. FINDINGS: PSA: Unknown Prostate Volume: 18.4 cm3 There is evidence of a 2 cm x 1.8 cm x 1.8 cm hypoechoic nodule in the central portion of the prostate. US/Prostate IMPRESSION: Hypoechoic nodule in the central portion of the prostate. Electronically Signed: Nakul Painter, at 9:32 EST , Service support ,
== END ==
PROVIDERS: Family Provider Family Medicine; PCP Family Medicine; Referring Provider Physician Assistant; Visit Provider Physician Assistant
DX: R10.2 Pelvic and perineal pain (principal); M70.72 Other bursitis of hip, left hip
CPT/HCPCS: 76872